=== PATIENT | female | born 1980 | race Caucasian/White ===

== ENCOUNTER 2021-02-22 15:24 | Inpatient (IN) ==
[2021-02-22] MEDS ORDERED: dexAMETHasone 6 MG in SYRINGE 0 ML IV ONE (16:15)
[2021-02-22] MEDS ORDERED: DEXAMETHASONE SOD INJ 4 MG/ML VIAL ONE (16:23)
[2021-02-22 16:40] LABS: Basophils # (auto) 0.03 K/uL (0-0.2); Basophils % (auto) 0.4 %; Eosinophils # (auto) 0.01 K/uL (0-0.5); Eosinophils % (auto) 0.1 %; Hemoglobin 13.7 g/dL (12.0-16.0); Immature Granulocytes # (auto) 0.03 K/uL (0.00-0.02); Immature Granulocytes % (auto) 0.4 %; Lymphocytes # (auto) 1.29 K/uL (1.2-3.4); Lymphocytes % (auto) 15.5 %; Mean Corpuscular Hemoglobin 30.2 pg (25-34); Mean Corpuscular Hgb Conc 35.1 g/dL (32-36); Mean Corpuscular Volume 85.9 fL (80-100); Mean Platelet Volume 9.5 fL (7.4-10.4); Monocytes # (auto) 0.65 K/uL (0.11-0.59); Monocytes % (auto) 7.8 %; Neutrophils # (auto) 6.29 K/uL (1.4-6.5); Neutrophils % (auto) 75.8 %; Platelet Count 278 K/uL (130-400); RDW Coefficient of Variation 12.9 % (11.5-14.5); RDW Standard Deviation 40.7 fL (36.4-46.3); Red Blood Count 4.54 M/uL (4.2-5.4)
[2021-02-22 16:55] LABS: Partial Thromboplastin Time 26.4 Seconds (21.0-31.0); Prothrombin Time 9.8 Seconds (9.0-12.0)
[2021-02-22 17:00] LABS: Alanine Aminotransferase 44 U/L (12-78); Albumin Level 2.9 gm/dl (3.4-5.0); Aspartate Aminotransferase 44 U/L (15-37); BUN Creatinine Ratio 16.5 (10-20); Blood Urea Nitrogen 12 mg/dl (7-18); Carbon Dioxide 24 mmol/L (21-32); Chloride 103 mmol/L (98-107); Creatinine Clr Calc Pharmacy 133.2 ml/min; Est GFR (African American) 115.6 ml/min; Est GFR (Non-African American) 99.7 ml/min; Glucose 100 mg/dl (70-99); Magnesium 2.2 mg/dl (1.8-2.4); Potassium 3.4 mmol/L (3.5-5.1); Sodium 135 mmol/L (136-145)
--- NOTE | 2021-02-22 17:06 | Emergency Department Note ---
History of Present Illness General Chief Complaint: Shortness of Breath/Dyspnea Stated Complaint: SOB Time Seen by Provider: 02/22/21 16:04 History of Present Illness Provider Complaint: shortness of breath Onset (ago): day(s) (10) Severity: severe Consistency/Duration: + progressively worsening Relieved By: + nothing Exacerbated By: + exertion and + coughing Context: + recent illness (Diagnosed with COVID-19 on February 16, 2021) Associated symptoms: + fever, + cough and + chest congestion; no chest pain, no polyuria or no hemoptysis Treatment prior to arrival: none HPI Narrative: Patient states that she has been measuring her home oxygen saturations with a pulse oximeter and it has been going down to 80% today. Related Data Home oxygen amount: none Home Medications Medication Instructions Recorded Confirmed Type albuterol sulfate 90 mcg/actuation 2 puff INHALATION UD PRN 02/18/21 02/22/21 History aerosol inhaler bupropion HCl 300 mg 24 hr tablet, 300 mg PO DAILY 02/18/21 02/22/21 History extended release doxycycline hyclate 100 mg capsule 100 mg PO BID 02/18/21 02/22/21 History ferrous sulfate 325 mg (65 mg 325 mg PO DAILY 02/18/21 02/22/21 History iron) tablet (FeroSul) folic acid 1 mg tablet 1 mg PO DAILY 02/18/21 02/22/21 History lisdexamfetamine 10 mg capsule 10 mg PO DAILY 02/18/21 02/22/21 History (Vyvanse) lisdexamfetamine 20 mg capsule 20 mg PO DAILY 02/18/21 02/22/21 History (Vyvanse) lisdexamfetamine 30 mg capsule 30 mg PO DAILY 02/18/21 02/22/21 History (Vyvanse) metronidazole 0.75 % lotion 1 applic TOPICAL UD 02/18/21 02/22/21 History spironolactone 100 mg tablet 100 mg PO DAILY 02/18/21 02/22/21 History Allergies Allergy/AdvReac Type Severity Reaction Status Date / Time gluten Allergy Unknown RASH Verified 02/22/21 16:38 Past Med/Surg History Medical History COVID-19 No pertinent family history RUQ abdominal pain Surgical History No pertinent past surgical history Social History Smoking Status: Never smoker Feels Safe at Home: Yes Review of Systems A total of 10 systems reviewed and were otherwise negative Physical Exam Vital Signs: Vital Signs - 24 hr 02/22/21 16:01 02/22/21 16:06 02/22/21 16:09 Temperature 36.7 C Temperature Source Oral Pulse Rate 76 72 67 Pulse Rate from Sp O2 Sensor 70 Respiratory Rate 30 H 31 H 26 H Respiratory Effort / Characteristics Labored Labored Respiratory Depth Shallow Respiratory Patter n Tachypnea Blood Pressure 113/66 113/66 Blood Pressure Anahi n 81 81 Blood Pressure Pos ition Lying Pulse Oximetry 84 L 97 97 Oxygen Delivery Me thod Room Air Nasal Cannula Nasal Cannula Oxygen Flow Rate 2 2 2 Sepsis Recent Feve r Within 48 Hours No Sepsis New/Unexpla ined Change in Men jair Status N/A Sepsis Action Take n by Nursing No Action Required 02/22/21 16:30 02/22/21 17:00 02/22/21 17:30 Temperature Temperature Source Pulse Rate 65 71 73 Pulse Rate from Sp O2 Sensor 66 74 Respiratory Rate 24 24 26 H Respiratory Effort / Characteristics Respiratory Depth Respiratory Patter n Blood Pressure 135/80 100/70 Blood Pressure Anahi n 98 80 Blood Pressure Pos ition Pulse Oximetry 98 98 Oxygen Delivery Me thod Nasal Cannula Nasal Cannula Oxygen Flow Rate 2 2 Sepsis Recent Feve r Within 48 Hours Sepsis New/Unexpla ined Change in Men jair Status Sepsis Action Take n by Nursing 02/22/21 18:00 02/22/21 18:30 Temperature Temperature Source Pulse Rate 64 84 Pulse Rate from Sp O2 Sensor 64 84 Respiratory Rate 29 H 24 Respiratory Effort / Characteristics Respiratory Depth Respiratory Patter n Blood Pressure 133/75 Blood Pressure Anahi n 94 Blood Pressure Pos ition Pulse Oximetry 98 96 Oxygen Delivery Me thod Nasal Cannula Nasal Cannula Oxygen Flow Rate 2 2 Sepsis Recent Feve r Within 48 Hours Sepsis New/Unexpla ined Change in Men jair Status Sepsis Action Take n by Nursing Physical Exam: Physical Exam GENERAL: She is oriented to person, place, and time. She appears well-developed and well-nourished. She does not appear distressed. HENT: Exam performed. -Head: Normocephalic and atraumatic. -Right Ear: External ear normal. No mastoid tenderness. -Left Ear: External ear normal. No mastoid tenderness. -Mouth/Throat: The oropharynx is clear and moist. No trismus in the jaw. No dental abscesses or uvula swelling. No oropharyngeal exudate or tonsillar abs cesses. EYES: Conjunctivae and EOM are normal. Pupils are equal, round, and reactive to light. Right eye exhibits no discharge. Left eye exhibits no discharge. No scleral icterus. NECK: Normal range of motion. Neck supple. No JVD present. No spinous process tenderness present. No carotid bruit present. No rigidity. No tracheal deviation and normal range of motion present. No Brudzinski's sign and no Kernig's sign noted. CV: Normal rate, regular rhythm, normal heart sounds and intact distal pulses. There is no peripheral edema. Palpable radial pulses bue. PULM/CHEST: Rhonchi bilaterally. -Chest Wall: She exhibits no tenderness. ABD: The abdomen is soft. Bowel sounds are normal. She has no distension. No mass is present. There is no tenderness. There is no rebound, no guarding, no Oliver's sign and no tenderness at McBurney's point. Rovsig negative MUSC/SKEL: Normal range of motion. There is no peripheral edema, tenderness or deformity. LYMPH: No cervical adenopathy. NEURO: She is alert and oriented to person, place, and time. She has normal strength. No cranial nerve deficit or sensory deficit. Coordination and gait normal. GCS eye subscore is 4. GCS verbal subscore is 5. GCS motor subscore is 6. Cerebellar tests wnl. SKIN: Skin is warm and dry. She is not diaphoretic. PSYCH: She has a normal mood and affect. Behavior is normal. Judgment and thought content normal. Course Course 1604: The patient was evaluated in room A11. A complete history and physical exam was performed Cardiac monitoring: An order was placed for continuous cardiac monitoring. The monitor shows a rate of 80 with sinus rhythm On arrival to the emergency department patient's oxygen saturation is 80 to 85% on room air. Patient was started on supplemental oxygen via nasal cannula which improved her oxygen saturation. EMR reviewed. This is the patient's third visit to the emergency department in the last 6 days. Patient was diagnosed with COVID-19 on February 16, 2021. Patient given Decadron 6 mg IV push. 1907: Vital signs stable on supplemental oxygen via nasal cannula. Labs within normal limits. CTA shows no central PE bilateral groundglass opacities. Patient will be admitted to the emergency department for Covid pneumonia. [facility] hospitalist team Dr. Beltran notified. Administered Medications Discontinued Medications Dexamethasone (Dexamethasone Sod Inj 4 Mg/Ml Vial) Confirm Administered Dose 8 mg .ROUTE .STK-MED ONE Stop: 02/22/21 16:24 Last Admin: 02/22/21 16:27 Dose: Not Given Documented by: [id number] Dexamethasone 6 mg/ Syringe 1.5 mls @ 1 mls/min IV ONE ONE Stop: 02/22/21 16:16 Last Admin: 02/22/21 16:27 Dose: 1 mls/min Documented by: [id number] Ioversol (Optiray 320 125ml) 120 ml IV ONCE ONE Stop: 02/22/21 18:26 Last Admin: 02/22/21 18:27 Dose: 120 ml Documented by: [id number] Medical Decision Making Laboratory Data Result diagrams: 02/22/21 16:29 02/22/21 16:29 Lab Results 02/22/21 02/22/21 02/22/21 Range/Units 16:29 16:29 16:29 WBC 8.30 (4.8-10.8) K/uL RBC 4.54 (4.2-5.4) M/uL Hgb 13.7 (12.0-16.0) g/dL Hct 39.0 (37-47) % MCV 85.9 (80-100) fL MCH 30.2 (25-34) pg MCHC 35.1 (32-36) g/dL RDW Std Deviation 40.7 (36.4-46.3) fL RDW Coeff of Tasha 12.9 (11.5-14.5) % Plt Count 278 (130-400) K/uL MPV 9.5 (7.4-10.4) fL Immature Gran % (Auto) 0.4 % Neut % (Auto) 75.8 % Lymph % (Auto) 15.5 % [place] % (Auto) 7.8 % Eos % (Auto) 0.1 % Baso % (Auto) 0.4 % Neut # (Auto) 6.29 (1.4-6.5) K/uL Lymph # (Auto) 1.29 (1.2-3.4) K/uL [place] # (Auto) 0.65 H (0.11-0.59) K/uL Eos # (Auto) 0.01 (0-0.5) K/uL Baso # (Auto) 0.03 (0-0.2) K/uL Immature Gran # (Auto) 0.03 H (0.00-0.02) K/uL PT 9.8 (9.0-12.0) Seconds INR 1.0 (0.9-1.1) APTT 26.4 (21.0-31.0) Seconds PTT Ratio 1.0 VBG pH (7.36-7.41) VBG pCO2 (38-50) mmHg VBG pO2 mmHg VBG HCO3 mmol/L VBG O2 Saturation % VBG Base Excess mEq/L Barometric Pressure mm/Hg Sodium 135 L (136-145) mmol/L Potassium 3.4 L (3.5-5.1) mmol/L Chloride 103 (98-107) mmol/L Carbon Dioxide 24 (21-32) mmol/L Anion Gap 8.0 (3-11) BUN 12 (7-18) mg/dl Creatinine 0.75 (0.6-1.2) mg/dl Est Cr Clr Drug Dosing 133.2 ml/min Est GFR ( Amer) 115.6 ml/min Est GFR (Non-Af Amer) 99.7 ml/min BUN/Creatinine Ratio 16.5 (10-20) Glucose 100 H (70-99) mg/dl Lactate (0.4-2.0) mmol/L Calcium 9.0 (8.5-10.1) mg/dl Magnesium 2.2 (1.8-2.4) mg/dl Total Bilirubin 0.7 (0.2-1) mg/dl AST 44 H (15-37) U/L ALT 44 (12-78) U/L Alkaline Phosphatase 107 (45-117) U/L Troponin I < 0.015 (0-0.045) ng/ml Total Protein 7.6 (6.4-8.2) gm/dl Albumin 2.9 L (3.4-5.0) gm/dl Globulin 4.7 H (2.5-4.0) gm/dl Albumin/Globulin Ratio 0.6 L (0.9-2) Procalcitonin (0-0.5) ng/ml 02/22/21 02/22/21 02/22/21 Range/Units 16:29 16:55 16:55 WBC (4.8-10.8) K/uL RBC (4.2-5.4) M/uL Hgb (12.0-16.0) g/dL Hct (37-47) % MCV (80-100) fL MCH (25-34) pg MCHC (32-36) g/dL RDW Std Deviation (36.4-46.3) fL RDW Coeff of Tasha (11.5-14.5) % Plt Count (130-400) K/uL MPV (7.4-10.4) fL Immature Gran % (Auto) % Neut % (Auto) % Lymph % (Auto) % [place] % (Auto) % Eos % (Auto) % Baso % (Auto) % Neut # (Auto) (1.4-6.5) K/uL Lymph # (Auto) (1.2-3.4) K/uL [place] # (Auto) (0.11-0.59) K/uL Eos # (Auto) (0-0.5) K/uL Baso # (Auto) (0-0.2) K/uL Immature Gran # (Auto) (0.00-0.02) K/uL PT (9.0-12.0) Seconds INR (0.9-1.1) APTT (21.0-31.0) Seconds PTT Ratio VBG pH 7.43 H (7.36-7.41) VBG pCO2 39 (38-50) mmHg VBG pO2 34 mmHg VBG HCO3 25 mmol/L VBG O2 Saturation < 60.0 % VBG Base Excess 1.1 mEq/L Barometric Pressure 729.5 mm/Hg Sodium (136-145) mmol/L Potassium (3.5-5.1) mmol/L Chloride (98-107) mmol/L Carbon Dioxide (21-32) mmol/L Anion Gap (3-11) BUN (7-18) mg/dl Creatinine (0.6-1.2) mg/dl Est Cr Clr Drug Dosing ml/min Est GFR ( Amer) ml/min Est GFR (Non-Af Amer) ml/min BUN/Creatinine Ratio (10-20) Glucose (70-99) mg/dl Lactate 1.8 (0.4-2.0) mmol/L Calcium (8.5-10.1) mg/dl Magnesium (1.8-2.4) mg/dl Total Bilirubin (0.2-1) mg/dl AST (15-37) U/L ALT (12-78) U/L Alkaline Phosphatase (45-117) U/L Troponin I (0-0.045) ng/ml Total Protein (6.4-8.2) gm/dl Albumin (3.4-5.0) gm/dl Globulin (2.5-4.0) gm/dl Albumin/Globulin Ratio (0.9-2) Procalcitonin 0.07 (0-0.5) ng/ml Imaging Data Radiologist's Impression: Chest CTA 02/22/21 16:06 CHEST CTA for PULMONARY ARTERIES CT DOSE: 717.81 mGy.cm HISTORY: Shortness of breath. TECHNIQUE: Multiaxial CT images of the chest were performed following the intravenous administration of contrast to evaluate the pulmonary arteries. Maximal intensity projection images were also obtained. A dose lowering technique was utilized adhering to the principles of ALARA. COMPARISON STUDY: None. FINDINGS: There is respiratory motion artifact. Limited views of the upper abdomen demonstrate normal liver and spleen. Trace bilateral pleural effusions. No pericardial effusion. The heart is normal in size. Normal esophagus. Borderline enlarged bilateral hilar lymph nodes. These are likely reactive. No mediastinal lymphadenopathy. No fractures within the visualized osseous structures. Normal caliber thoracic aorta with no evidence for dissection. Nondiagnostic evaluation involving the majority of the segmental and subsegmental pulmonary arteries due to the respiratory motion. The remaining central pulmonary arteries show no evidence for pulmonary embolus. No pneumothorax. The central airways appear patent. Extensive patchy airspace opacities seen throughout the lungs consistent with the patient's known history of a viral pneumonia. IMPRESSION: 1. No evidence for central pulmonary embolus. The distal pulmonary arteries are essentially nondiagnostic due to the respiratory motion artifact. 2. Multifocal patchy bilateral airspace opacities consistent with a viral pneumonia. 3. Trace bilateral pleural effusions. ACT 112: Negative or not required by law. Electronically signed by: Paras Doshi M.D. 02/22/2021 6:46 PM Chest X-Ray 02/22/21 16:06 SINGLE VIEW CHEST CLINICAL HISTORY: Sepsis. FINDINGS: An AP, portable, upright chest radiograph is compared to study dated 02/18/2021. The cardiomediastinal silhouette is unremarkable. Multifocal airspace consolidation is again seen throughout both lungs. This has modestly worsened as compared to 02/18/2021. No large pleural effusion or pneumothorax is seen. The bony thorax is grossly intact. IMPRESSION: Multifocal airspace consolidation is consistent with the reported history of a viral pneumonia. This has modestly worsened as compared to 02/18/2021. Radiographic follow-up to resolution is recommended. ACT 112: Negative or not required by law. Electronically signed by: Wilian Dnag M.D. 02/22/2021 5:18 PM ECG Data Interpretation: Sinus rhythm with rate of 69. UT QRS and QTc intervals within normal limits. No escalation ST depression. [facility] Narrative 1604: The patient was evaluated in room A11. A complete history and physical exam was performed Cardiac monitoring: An order was placed for continuous cardiac monitoring. The monitor shows a rate of 80 with sinus rhythm On arrival to the emergency department patient's oxygen saturation is 80 to 85% on room air. Patient was started on supplemental oxygen via nasal cannula which improved her oxygen saturation. EMR reviewed. This is the patient's third visit to the emergency department in the last 6 days. Patient was diagnosed with COVID-19 on February 16, 2021. Patient given Decadron 6 mg IV push. 1907: Vital signs stable on supplemental oxygen via nasal cannula. Labs within normal limits. CTA shows no central PE bilateral groundglass opacities. Patient will be admitted to the emergency department for Covid pneumonia. [facility] hospitalist team Dr. Beltran notified. Impression & Plan Hypoxia, 2019 novel coronavirus-infected pneumonia (NCIP) Critical Care Time Critical Care Time: Yes Total Critical Care Time: 40 I have personally spent greater than 40 minutes of critical care time in the direct management of this patient. This includes bedside care, interpretation of diagnostic studies, and testing, discussion with consultants, patient, and family members, and other required patient management activities. This 40 minutes is in excess of all separately billable procedures. Discharge Plan Visit Data Chief Complaint: Shortness of Breath/Dyspnea Stated Complaint: SOB Discharge Problem: Hypoxia, 2019 novel coronavirus-infected pneumonia (NCIP) Patient Disposition: Admitted As Inpatient Forms Stand Alone Forms: My [facility] Prescriptions Prescriptions: No Action ferrous sulfate [FeroSul] 325 mg (65 mg iron) tablet 325 mg PO DAILY RF: 0 Vyvanse 30 mg capsule 30 mg PO DAILY RF: 0 Vyvanse 20 mg capsule 20 mg PO DAILY RF: 0 Vyvanse 10 mg capsule 10 mg PO DAILY RF: 0 doxycycline hyclate 100 mg capsule 100 mg PO BID RF: 0 spironolactone 100 mg tablet 100 mg PO DAILY RF: 0 metronidazole 0.75 % lotion 1 applic TOPICAL UD RF: 0 folic acid 1 mg tablet 1 mg PO DAILY RF: 0 albuterol sulfate 90 mcg/actuation HFA aerosol inhaler 2 puff INHALATION UD PRN (Reason: as directed) RF: 0 bupropion HCl 300 mg tablet extended release 24 hr 300 mg PO DAILY RF: 0 Referrals Referrals: Leann Ferrer [Primary Care Provider] -
[2021-02-22 17:08] LABS: Albumin Globulin Ratio 0.6 (0.9-2); Alkaline Phosphatase 107 U/L (45-117); Bilirubin,Total 0.7 mg/dl (0.2-1); Globulin 4.7 gm/dl (2.5-4.0); Total Protein 7.6 gm/dl (6.4-8.2); Troponin I < 0.015 ng/ml (0-0.045)
[2021-02-22 17:14] LABS: Base Excess VBG 1.1 mEq/L; HCO3 VBG 25 mmol/L; PCO2 VBG 39 mmHg (38-50); PO2 VBG 34 mmHg; pH VBG 7.43 (7.36-7.41)
[2021-02-22 17:17] LABS: Oxygen Saturation VBG < 60.0 %
--- NOTE | 2021-02-22 17:20 | XRay Report ---
SINGLE VIEW CHEST CLINICAL HISTORY: Sepsis. FINDINGS: An AP, portable, upright chest radiograph is compared to study dated 02/18/2021. The cardio mediastinal silhouette is unremarkable. Multifocal airspace consolidation is again seen throughout alma th lungs. This has modestly worsened as compared to 02/18/2021. No large pleural effusion or pneumoth orax is seen. The bony thorax is grossly intact. IMPRESSION: Multifocal airspace consolidation is consistent with the reported history of a viral pneu monia. This has modestly worsened as compared to 02/18/2021. Radiographic follow-up to resolution is recommended. ACT 112: Negative or not required by law. Electronically signed by: Wilian Dang M.D. 02/22/2021 5:18 PM
[2021-02-22] MEDS ORDERED: OPTIRAY 320 125ml IV ONE (18:25)
--- NOTE | 2021-02-22 18:48 | CT Scan Report ---
CHEST CTA for PULMONARY ARTERIES CT DOSE: 717.81 mGy.cm HISTORY: Shortness of breath. TECHNIQUE: Multiaxial CT images of the chest were performed following the intravenous administration of contrast to evaluate the pulmonary arteries. Maximal intensity projection images were also obtaine d. A dose lowering technique was utilized adhering to the principles of ALARA. COMPARISON STUDY: None. FINDINGS: There is respiratory motion artifact. Limited views of the upper abdomen demonstrate normal liver and spleen. Trace bilateral pleural effusions. No pericardial effusion. The heart is normal in size. Normal esophagus. Borderline enlarged bilateral hilar lymph nodes. These are likely reactive. No mediastinal lymphadenopathy. No fractures within the visualized osseous structures. Normal caliber thoracic aorta with no evidence for dissection. Nondiagnostic evaluation involving the majority of t he segmental and subsegmental pulmonary arteries due to the respiratory motion. The remaining central pulmonary arteries show no evidence for pulmonary embolus. No pneumothorax. The central airways appe ar patent. Extensive patchy airspace opacities seen throughout the lungs consistent with the patient' s known history of a viral pneumonia. IMPRESSION: 1. No evidence for central pulmonary embolus. The distal pulmonary arteries are essentially nondiagno stic due to the respiratory motion artifact. 2. Multifocal patchy bilateral airspace opacities consistent with a viral pneumonia. 3. Trace bilateral pleural effusions. ACT 112: Negative or not required by law. Electronically signed by: Paras Doshi M.D. 02/22/2021 6:46 PM
[2021-02-22] MEDS ORDERED: REMDESIVIR 200 MG in SODIUM CHLORIDE 0.9% 210 ML IV STA (20:11)
[2021-02-22] MEDS ORDERED: POTASSIUM CHLORIDE CRTAB 20 MEQ TABCR PO STA (21:01)
[2021-02-22] MEDS ORDERED: ACETAMINOPHEN 325 MG TAB PO PRN (22:16)
[2021-02-22] MEDS ORDERED: NITROGLYCERIN SL 0.4 MG/TAB TAB SL PRN (22:16)
[2021-02-22] MEDS ORDERED: guaiFENesin/CODEINE 100MG/10MG 5ML UDC PO PRN (22:16)
[2021-02-22] MEDS ORDERED: SODIUM CHLORIDE 0.9% 1000ML 1,000 ML IV SCH (22:16)
[2021-02-22] MEDS ORDERED: ALBUTEROL HFA 8 GM INHALER INH PRN (22:16)
[2021-02-22] MEDS ORDERED: LEVALBUTEROL HCL 1.25 MG/3 ML NEB NEB PRN (22:16)
--- NOTE | 2021-02-22 22:52 | History and Physical Report ---
DATE OF ADMISSION: 02/22/2021. CHIEF COMPLAINT: Shortness of breath, COVID pneumonia. HISTORY OF PRESENT ILLNESS: This is a 40-year-old female with past medical history significant for celiac sprue, iron deficiency anemia, compulsive skin picking, depression, obesity, attention deficit disorder without hyperactivity,. Presents with shortness of breath, cough. The patient states she is having symptoms since 02/12/2021. She was diagnosed with COVID and outpatient treated with a 5-day course of prednisone, but her symptoms are not getting better. She has some cough, on and off headaches, on and off fevers, body aches, weakness, poor appetite. No loss of sense of smell or taste. No abdominal pain, but she has lot of diarrhea. Not feeling well. She came to the ER today and she was saturating 84% on room air, with 2 liters she is saturating 95%. Currently resting comfortably, hemodynamically stable. Denies any blurred visions. Has some runny nose. Denies any sore throat, no difficulty swallowing. No chest pain. No rash. Normal bladder movements. ALLERGIES: GLUTEN. PAST MEDICAL HISTORY: As mentioned above. PAST SURGICAL HISTORY: , dental surgery, EGD with biopsy, exploratory laparotomy, LASIK surgery, myomectomy, partial removal of the leg bones, tonsillectomy and adenoidectomy. MEDICATIONS: The patient is on albuterol 2 puffs inhalation p.r.n., bupropion 300 mg p.o. daily, doxycycline 100 mg p.o. b.i.d., ferrous sulfate 325 mg p.o. daily, folic acid 1 mg p.o. daily, Vyvanse 30 mg p.o. daily, spironolactone 100 mg p.o. daily. FAMILY HISTORY: Significant for mother had adenocarcinoma, myasthenia gravis; father had diabetes; maternal grandfather has heart disorder; maternal grandmother has heart disorder; paternal grandmother had heart disorder. SOCIAL HISTORY: , lives with her kids. No smoking, no alcohol, no drug use. REVIEW OF SYSTEMS: As per HPI. Rest of the review of systems is negative. PHYSICAL EXAMINATION: GENERAL: The patient is morbidly obese, not in acute distress. VITAL SIGNS: Temperature 36.7, pulse 63, respiratory rate 24, blood pressure 108/68, oxygen 95% on 2 liters. HEENT: Pupils equal, round and reactive to light. Oral mucosa moist. NECK: No JVD, no neck masses. CARDIOVASCULAR: S1 and S2 heard. Regular rate and rhythm. No murmur, no gallop. RESPIRATORY SYSTEM: Normal AP diameter. No accessory muscle use. No wheezing, no crackles. ABDOMEN: Soft, bowel sounds present, nontender, no distention. CENTRAL NERVOUS SYSTEM: Cranial nerves II-XII grossly intact, nonfocal. EXTREMITIES: No edema, no erythema. LABORATORY DATA: WBC 8.3, hemoglobin 13.7, hematocrit 39, platelets 278. PT 9.8, INR 1, APTT 26.4. Venous blood gas, pH 7.43. Sodium 135, potassium 3.4, chloride 103, bicarbonate 24, BUN 12, creatinine 0.75, serum glucose 100. Lactate 1.8, calcium 9, magnesium 2.2, total bilirubin 0.7, AST 45, ALT 44, alkaline phosphatase 107. Troponin I less than 0.015. Procalcitonin 0.07. IMAGING DATA: Chest x-ray, multifocal airspace consolidation consistent with reported history of viral pneumonia, modestly worsened as compared to 02/18/2021. CT of the chest, no evidence of PE. Multifocal patchy bilateral airspace opacity consistent with viral pneumonia. EKG: Normal sinus rhythm at a rate of 69, no significant change was found. ASSESSMENT AND PLAN: This is a 40-year-old female who presents with COVID pneumonia. 1. COVID pneumonia: almost around 10 days. Treated outpatient with 5 days of prednisone, not getting better. Chest x-ray showed somewhat progressive pneumonia requiring 2 L oxygen. Will continue with IV Decadron. Starting on remdesivir, questionable benefit. Will continue for now. Follow the remdesivir labs. Will place on inhalers and nebs p.r.n. Closely monitor in [place]. 2. History of depression: Continue bupropion b.i.d. 3. Attention deficit disorder: On Vyvanse. 4. Iron deficiency anemia, celiac sprue: Gluten-free diet and iron supplements. 5. Deep venous thrombosis prophylaxis: Lovenox. DISPOSITION: Admit to [facility]. PT/OT prior to discharge. Social service to help with discharge planning. Job ID: [id number] [facility]
[2021-02-23] MEDS: SODIUM CHLORIDE 0.9% 10ML FLUSH IV SCH ×2 (00:05→21:44)
[2021-02-23] MEDS: ENOXAPARIN INJ 40 MG/0.4 ML SYR SQ SCH ×3 (00:05→20:05)
[2021-02-23] MEDS: BENZONATATE 100 MG CAPSULE PO SCH ×4 (00:05→20:06)
[2021-02-23 06:33] LABS: Basophils # (auto) 0.01 K/uL (0-0.2); Basophils % (auto) 0.2 %; Hematocrit (blood only) 39.5 % (37-47); Hemoglobin 13.3 g/dL (12.0-16.0); Immature Granulocytes # (auto) 0.06 K/uL (0.00-0.02); Immature Granulocytes % (auto) 1.2 %; Lymphocytes # (auto) 1.03 K/uL (1.2-3.4); Lymphocytes % (auto) 20.9 %; Mean Corpuscular Hemoglobin 28.9 pg (25-34); Mean Corpuscular Hgb Conc 33.7 g/dL (32-36); Mean Corpuscular Volume 85.9 fL (80-100); Mean Platelet Volume 9.8 fL (7.4-10.4); Monocytes # (auto) 0.55 K/uL (0.11-0.59); Monocytes % (auto) 11.2 %; Neutrophils # (auto) 3.27 K/uL (1.4-6.5); Neutrophils % (auto) 66.5 %; Platelet Count 276 K/uL (130-400); RDW Coefficient of Variation 12.9 % (11.5-14.5); RDW Standard Deviation 40.6 fL (36.4-46.3); White Blood Count 4.92 K/uL (4.8-10.8)
[2021-02-23 07:07] LABS: Albumin Level 2.7 gm/dl (3.4-5.0); BUN Creatinine Ratio 20.7 (10-20); Bilirubin Direct 0.2 mg/dl (0-0.2); Bilirubin,Total 0.5 mg/dl (0.2-1); C Reactive Protein 9.56 mg/dl (0-0.29); Calcium 8.7 mg/dl (8.5-10.1); Creatinine Clr Calc Pharmacy 158.6 ml/min; Est GFR (Non-African American) 112.2 ml/min; Magnesium 2.8 mg/dl (1.8-2.4); Potassium 3.9 mmol/L (3.5-5.1)
[2021-02-23 07:08] LABS: Total Protein 7.3 gm/dl (6.4-8.2)
[2021-02-23] MEDS: dexAMETHasone 6 MG in SYRINGE 0 ML IV SCH (08:08)
[2021-02-23] MEDS: buPROPion XL 300 MG TABCR PO SCH (08:10)
[2021-02-23] MEDS: FERROUS SULFATE 325 MG TAB PO SCH (08:11)
[2021-02-23] MEDS: FOLIC ACID 1 MG TAB PO SCH (08:12)
[2021-02-23] MEDS: FLUTICASONE FUROATE 100MCG 14 PUFFS/INHALER INH SCH (08:12)
[2021-02-23] MEDS: SPIRONOLACTONE 100 MG TAB PO SCH (08:12)
[2021-02-23 10:21] LABS: Appearance Urine Cloudy (Clear); Bacteria Urine Automated 2+ (Negative); Bilirubin Urine 1+ (Negative); Blood Urine 2+ (Negative); Color Urine Dark Yellow; Epithelial Cell Urine Auto >30 /lpf (0-5); Glucose Urine UA Negative (Negative); Ketones Urine 1+ (Negative); Leukocyte Esterase Urine Negative (Negative); Nitrite Urine Negative (Negative); Protein Urine 2+ (Negative); Specific Gravity Urine 1.037 (1.000-1.030); Urobilinogen Urine Negative (Negative)
--- NOTE | 2021-02-23 14:07 | Electrocardiogram Report ---
Test Reason : Blood Pressure : / mmHG Vent. Rate : 052 BPM Atrial Rate : 052 BPM P-R Int : 164 ms QRS Dur : 096 ms QT Int : 462 ms P-R-T Axes : 040 026 029 degrees QTc Int : 429 ms Sinus bradycardia Otherwise normal ECG When compared with ECG of 22-FEB-2021 16:25, (unconfirmed) No significant change was found Confirmed by Abdoulaye Granger ([id number]) on 02/23/2021 2:07:09 PM Referred By: REFERRED SELF Confirmed By:Juan Granger
--- NOTE | 2021-02-23 14:16 | Electrocardiogram Report ---
Test Reason : Blood Pressure : / mmHG Vent. Rate : 069 BPM Atrial Rate : 069 BPM P-R Int : 142 ms QRS Dur : 084 ms QT Int : 394 ms P-R-T Axes : 041 027 033 degrees QTc Int : 422 ms Normal sinus rhythm When compared with ECG of 14-MAY-2015 16:49, No significant change was found Confirmed by Abdoulaye Granger ([id number]) on 02/23/2021 2:16:12 PM Referred By: REFERRED SELF Confirmed By:Juan Granger
[2021-02-23] MEDS: REMDESIVIR 100 MG in SODIUM CHLORIDE 0.9% 230 ML IV SCH (19:58)
--- NOTE | 2021-02-23 20:36 | Hospitalist Progress Note ---
Date of Service February 23, 2021 Assessment & Plan (1) Pneumonia: (2) 2019 novel coronavirus-infected pneumonia (NCIP): (3) Hypoxia: Plan: 40-year-old female with past medical history significant for celiac sprue, iron deficiency anemia, compulsive skin picking, depression, obesity, attention deficit disorder without hyperactivity presented 02/22 w/ shortness of breath, cough. 1. COVID pneumonia: Per patient, signs and symptoms since 02/12/2021, diagnosed with Covid and treated with 5-day course of prednisone as an outpatient but did not get better. Presented with worsening shortness of breath and cough with on and off headaches and on and off fever with poor appetite. Patient reports improvement in her cough and diarrhea, as well as an appetite. Admitting CXR positive for progressive pneumonia, currently on 2 L oxygen Continue with Decadron 02/05 and remdesivir 02/22 Continue with spirometry/flutter valve/proning as able/nebulizations. Lasix as needed to keep the patient on the air drier side Strict I's and O's. Continue to monitor in telemetry 2. History of depression: Continue bupropion b.i.d. 3. Attention deficit disorder: On Vyvanse. 4. Iron deficiency anemia, celiac sprue: Gluten-free diet and iron supplements. 5. Deep venous thrombosis prophylaxis: Lovenox. DISPOSITION:The patient continues to report improvement and is stable, likely discharge in 1 to 2 days. Admission and Anticipated Discharge Date Admission Date: February 22, 2021 Subjective Patient is lying in bed, on 2 L nasal cannula oxygen, NAD, no new acute events overnight per RN. Patient reports improving diarrhea and cough. Patient denies any headache/dizziness/chest pain/palpitations/increased shortness of breath/other review of symptoms. Patient reports eating okay. Physical Exam Physical Exam: GENERAL: Alert and oriented x3. NAD, on 2L HEENT: No pallor, no icterus. Pupils equal, round and reactive to light. Oral mucosa moist. NECK: No JVD, no neck masses. HEART: S1 and S2 heard. Regular rate and rhythm. No murmur, no gallop. RESPIRATORY SYSTEM: Normal AP diameter. No accessory muscle use. No wheezing, no crackles. Decreased breath sounds. ABDOMEN: Soft, bowel sounds present, nontender, no distention. CENTRAL NERVOUS SYSTEM: No facial droop. Speech is clear. Obeys simple commands. Moves extremities. EXTREMITIES: No edema, no erythema seen. Results & Data Results & Data ([facility]) Vital Signs (Past 12 Hours) Vital Signs Temp Pulse Resp BP Pulse Ox 02/23/21 19:23 37 C 70 20 105/71 96 02/23/21 15:05 36.8 C 62 17 105/70 95 02/23/21 12:05 36.6 C 61 18 114/75 95 (1) Pneumonia Laterality: bilateral Lung location: unspecified part of lung Pneumonia type: due to unspecified organism Qualified Code(s): J18.9 - Pneumonia, unsp ecified organism
[2021-02-24 07:04] LABS: BUN Creatinine Ratio 23.5 (10-20); Calcium 8.8 mg/dl (8.5-10.1); Creatinine Clr Calc Pharmacy 146.9 ml/min; Est GFR (African American) 126.8 ml/min; Est GFR (Non-African American) 109.4 ml/min; Potassium 3.8 mmol/L (3.5-5.1)
[2021-02-24] MEDS: dexAMETHasone 6 MG in SYRINGE 0 ML IV SCH (08:30)
[2021-02-24] MEDS: buPROPion XL 300 MG TABCR PO SCH (08:30)
[2021-02-24] MEDS: ENOXAPARIN INJ 40 MG/0.4 ML SYR SQ SCH ×2 (08:30→20:39)
[2021-02-24] MEDS: BENZONATATE 100 MG CAPSULE PO SCH ×3 (08:30→20:38)
[2021-02-24] MEDS: FOLIC ACID 1 MG TAB PO SCH (08:31)
[2021-02-24] MEDS: FERROUS SULFATE 325 MG TAB PO SCH (08:31)
[2021-02-24] MEDS: FLUTICASONE FUROATE 100MCG 14 PUFFS/INHALER INH SCH (08:31)
[2021-02-24] MEDS: SPIRONOLACTONE 100 MG TAB PO SCH (08:31)
--- NOTE | 2021-02-24 18:34 | Hospitalist Progress Note ---
Date of Service February 24, 2021 Assessment & Plan (1) Pneumonia: (2) 2019 novel coronavirus-infected pneumonia (NCIP): (3) Hypoxia: Plan: 40-year-old female with past medical history significant for celiac sprue, iron deficiency anemia, compulsive skin picking, depression, obesity, attention deficit disorder without hyperactivity presented 02/22 w/ shortness of breath, cough. 1. COVID pneumonia: Per patient, signs and symptoms since 02/12/2021, diagnosed with Covid and treated with 5-day course of prednisone as an outpatient but did not get better. Presented with worsening shortness of breath and cough with on and off headaches and on and off fever with poor appetite. Patient reports improvement in her cough and diarrhea, as well as an appetite. Admitting CXR positive for progressive pneumonia, currently not requiring oxy gen, patient reports feeling weak. Continue with Decadron 02/05 and remdesivir 02/22 Continue with spirometry/flutter valve/proning as able/nebulizations. Lasix as needed to keep the patient on the raw stock drier tender side Strict I's and O's. Continue to monitor in telemetry 2. History of depression: Continue bupropion b.i.d. 3. Attention deficit disorder: On Vyvanse. 4. Iron deficiency anemia, celiac sprue: Gluten-free diet and iron supplements. 5. Deep venous thrombosis prophylaxis: Lovenox. DISPOSITION:Patient reports feeling weak today and not able to go home because of no one to take care of her at home if needed. Likely discharge to home tomorrow. Admission and Anticipated Discharge Date Admission Date: February 22, 2021 Subjective Patient was sitting up in chair, on room air, NAD, no new acute events overnight per RN. Patient reports continued improvement in diarrhea and cough. Patient reports feeling weak and not able to go home today due to nobody at home to take care for if needed. Patient denies any headache/dizziness/chest pain/palpitations/increased shortness of breath/other review of symptoms. Patient reports eating okay. Physical Exam Physical Exam: GENERAL: Alert and oriented x3. NAD, on RA HEENT: No pallor, no icterus. Pupils equal, round and reactive to light. Oral mucosa moist. NECK: No JVD, no neck masses. HEART: S1 and S2 heard. Regular rate and rhythm. No murmur, no gallop. RESPIRATORY SYSTEM: Normal AP diameter. No accessory muscle use. No wheezing, no crackles. ABDOMEN: Soft, bowel sounds present, nontender, no distention. CENTRAL NERVOUS SYSTEM: No facial droop. Speech is clear. Obeys simple commands. Moves extremities. EXTREMITIES: No edema, no erythema seen. Results & Data Results & Data ([facility]) Vital Signs (Past 12 Hours) Vital Signs Temp Pulse Resp BP Pulse Ox 02/24/21 15:35 36.8 C 81 20 101/66 96 02/24/21 12:29 36.5 C 62 18 119/77 95 02/24/21 07:59 36.7 C 54 L 20 92/60 L 96 (1) Pneumonia Laterality: bilateral Lung location: unspecified part of lung Pneumonia type: due to unspecified organism Qualified Code(s): J18.9 - Pneumonia, unspecified organism
[2021-02-24] MEDS ORDERED: FLUCONAZOLE 50 MG TAB PO ONE (18:35)
[2021-02-24] MEDS: REMDESIVIR 100 MG in SODIUM CHLORIDE 0.9% 230 ML IV SCH (20:39)
[2021-02-24] MEDS: SODIUM CHLORIDE 0.9% 10ML FLUSH IV SCH (20:39)
[2021-02-25] MEDS: ENOXAPARIN INJ 40 MG/0.4 ML SYR SQ SCH (08:03)
[2021-02-25] MEDS: buPROPion XL 300 MG TABCR PO SCH (08:03)
[2021-02-25] MEDS: FERROUS SULFATE 325 MG TAB PO SCH (08:04)
[2021-02-25] MEDS: FLUTICASONE FUROATE 100MCG 14 PUFFS/INHALER INH SCH (08:04)
[2021-02-25] MEDS: FOLIC ACID 1 MG TAB PO SCH (08:04)
[2021-02-25] MEDS: SPIRONOLACTONE 100 MG TAB PO SCH (08:04)
[2021-02-25] MEDS: dexAMETHasone 6 MG in SYRINGE 0 ML IV SCH (08:10)
[2021-02-25] MEDS: BENZONATATE 100 MG CAPSULE PO SCH (08:33)
[2021-02-25 09:12] LABS: Creatinine Clr Calc Pharmacy 172.4 ml/min; Est GFR (African American) 133.6 ml/min; Est GFR (Non-African American) 115.3 ml/min
--- NOTE | 2021-02-25 13:12 | Discharge Summary ---
Date of Service February 25, 2021 Admission HPI Per Admitting Provider DATE OF ADMISSION: 02/22/2021. CHIEF COMPLAINT: Shortness of breath, COVID pneumonia. HISTORY OF PRESENT ILLNESS: This is a 40-year-old female with past medical history significant for celiac sprue, iron deficiency anemia, compulsive skin picking, depression, obesity, attention deficit disorder without hyperactivity,. Presents with shortness of breath, cough. The patient states she is having symptoms since 02/12/2021. She was diagnosed with COVID and outpatient treated with a 5-day course of prednisone, but her symptoms are not getting better. She has some cough, on and off headaches, on and off fevers, body aches, weakness, poor appetite. No loss of sense of smell or taste. No abdominal pain, but she has lot of diarrhea. Not feeling well. She came to the ER today and she was saturating 84% on room air, with 2 liters she is saturating 95%. Currently resting comfortably, hemodynamically stable. Denies any blurred visions. Has some runny nose. Denies any sore throat, no difficulty swallowing. No chest pain. No rash. Normal bladder movements. ALLERGIES: GLUTEN. PAST MEDICAL HISTORY: As mentioned above. PAST SURGICAL HISTORY: , dental surgery, EGD with biopsy, exploratory laparotomy, LASIK surgery, myomectomy, partial removal of the leg bones, tonsillectomy and adenoidectomy. MEDICATIONS: The patient is on albuterol 2 puffs inhalation p.r.n., bupropion 300 mg p.o. daily, doxycycline 100 mg p.o. b.i.d., ferrous sulfate 325 mg p.o. daily, folic acid 1 mg p.o. daily, Vyvanse 30 mg p.o. daily, spironolactone 100 mg p.o. daily. FAMILY HISTORY: Significant for mother had adenocarcinoma, myasthenia gravis; father had diabetes; maternal grandfather has heart disorder; maternal grandmother has heart disorder; paternal grandmother had heart disorder. SOCIAL HISTORY: , lives with her kids. No smoking, no alcohol, no drug use. REVIEW OF SYSTEMS: As per HPI. Rest of the review of systems is negative. Admission Exam Per Admitting Provider GENERAL: The patient is morbidly obese, not in acute distress. VITAL SIGNS: Temperature 36.7, pulse 63, respiratory rate 24, blood pressure 108/68, oxygen 95% on 2 liters. HEENT: Pupils equal, round and reactive to light. Oral mucosa moist. NECK: No JVD, no neck masses. CARDIOVASCULAR: S1 and S2 heard. Regular rate and rhythm. No murmur, no gallop. RESPIRATORY SYSTEM: Normal AP diameter. No accessory muscle use. No wheezing, no crackles. ABDOMEN: Soft, bowel sounds present, nontender, no distention. CENTRAL NERVOUS SYSTEM: Cranial nerves II-XII grossly intact, nonfocal. EXTREMITIES: No edema, no erythema. Principal Diagnosis COVID-19 Hypoxia Discharge Exam GENERAL: Alert and oriented x3. NAD, on RA HEENT: No pallor, no icterus. Pupils equal, round and reactive to light. Oral mucosa moist. NECK: No JVD, no neck masses. HEART: S1 and S2 heard. Regular rate and rhythm. No murmur, no gallop. RESPIRATORY SYSTEM: Normal AP diameter. No accessory muscle use. No wheezing, no crackles. ABDOMEN: Soft, bowel sounds present, nontender, no distention. CENTRAL NERVOUS SYSTEM: No facial droop. Speech is clear. Obeys simple commands. Moves extremities. EXTREMITIES: No edema, no erythema seen. 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 She was managed for the following while in hospital. 1. COVID pneumonia: Per patient, signs and symptoms since 02/12/2021, diagnosed with Covid and treated with 5-day course of prednisone as an outpatient but did not get better. Presented with worsening shortness of breath and cough with on and off headaches and on and off fever with poor appetite. Per patient, cough has improved, patient is eating well and bowel movement has been back to normal Patient received Decadron and remdesivir while in hospital, patient maintained room air since last 1 and half days, 2 step done revealed no home oxygen requirement.---> Discontinuing Decadron and remdesivir Patient to follow-up with primary care physician within a week time. Continue with spirometry/flutter valve/proning as able/nebulizations as needed for 5 more days as discussed at the bedside. 2. History of depression: Continue bupropion b.i.d. 3. Attention deficit disorder: On Vyvanse. 4. Iron deficiency anemia, celiac sprue: Gluten-free diet and iron supp lements. 5. Deep venous thrombosis prophylaxis: Lovenox. While inpatient Patient is being discharged home with following instruction at the point of discharge: Follow-up with your primary care physician within a week time. Take medications as prescribed. Continue with incentive spirometer and flutter valve for 5 days upon discharge. Maintain self-isolation for 5 days upon discharge. Total Time Total Time Spent Total Time Spent (In Minutes): 35 Discharge Plan Discharge Items Patient Disposition: Home - Self-Care Reason For Visit: SOB Discharge Diagnosis: COVID-19 Hypoxia Activity: Resume your previous activity Non-emergency contact: Primary Care Provider Call non-emergency contact if: you have any medication questions, your symptoms worsen and your temperature is above 101 Follow-up/Referrals: Wiliam Encinas MD [Primary Care Provider] - (Date & Time 03/01/2021 11:00 AM Provider Steffi Zamudio MD Department General Internal Medicine [facility] PLEASE NOTE THAT THIS IS A TELEHEALTH VIDEO APPOINTMENT. PLEASE FOLLOW THE INSTRUCTIONS PROVIDED IN YOUR EMAIL. IF YOU HAVE ANY QUESTIONS REGARDING THIS APPOINTMENT, PLEASE CALL ) Diet: Heart Healthy Addtl Attending Provider Instructions: Follow-up with your primary care physician within a week time. Take medications as prescribed. Continue with incentive spirometer and flutter valve for 5 days upon discharge. Maintain self-isolation for 5 days upon discharge. Home Isolation COVID-19 Instructions The following information about Home Isolation is from the CDC Website: https://www.cdc.gov/coronavirus/2019-ncov/hcp/wxdcrykq-quukhkm-awioww.html Stay home except to get medical care People who are mildly ill with COVID-19 are able to isolate at home during their illness. You should restrict activities outside your home, except for getting medical care. Do not go to work, school, or public areas. Avoid using public transportation, ride-sharing, or taxis. Separate yourself from other people and animals in your home People: As much as possible, you should stay in a specific room and away from other people in your home. Also, you should use a separate bathroom, if available. Animals: You should restrict contact with pets and other animals while you are sick with COVID-19, just like you would around other people. Although there have not been reports of pets or other animals becoming sick with COVID-19, it is still recommended that people sick with COVID-19 limit contact with animals until more information is known about the virus. When possible, have another member of your household care for your animals while you are sick. If you are sick with COVID-19, avoid contact with your pet, including petting, snuggling, being kissed or licked, and sharing food. If you must care for your pet or be around animals while you are sick, wash your hands before and after you interact with pets and wear a face mask. Call ahead before visiting your doctor If you have a medical appointment, call the healthcare provider and tell them that you have or may have COVID-19. This will help the healthcare providers of [facility] take steps to keep other people from getting infected or exposed. Wear a face mask You should wear a face mask when you are around other people (e.g., sharing a room or vehicle) or pets and before you enter a healthcare providers office. If you are not able to wear a face mask (for example, because it causes trouble breathing), then people who live with you should not stay in the same room with you, or they should wear a face mask if they enter your room. Cover your coughs and sneezes Cover your mouth and nose with a tissue when you cough or sneeze. Throw used tissues in a lined trash can. Immediately wash your hands with soap and water for at least 20 seconds or, if soap and water are not available, clean your hands with an alcohol-based hand cheese blender that contains at least 60% alcohol. Clean your hands often Wash your hands often with soap and water for at least 20 seconds, especially after blowing your nose, coughing, or sneezing; going to the bathroom; and before eating or preparing food. If soap and water are not readily available, use an alcohol-based hand cheese blender with at least 60% alcohol, covering all surfaces of your hands and rubbing them together until they feel dry. Soap and water are the best option if hands are visibly dirty. Avoid touching your eyes, nose, and mouth with unwashed hands. Avoid sharing personal household items You should not share dishes, drinking glasses, cups, eating utensils, towels, or bedding with other people or pets in your home. After using these items, they should be washed thoroughly with soap and water. Clean all high-touch surfaces everyday High touch surfaces include counters, tabletops, doorknobs, bathroom fixtures, toilets, phones, keyboards, tablets, and bedside tables. Also, clean any surfaces that may have blood, stool, or body fluids on them. Use a household cleaning spray or wipe, according to the label instructions. Labels contain instructions for safe and effective use of the cleaning product including precautions you should take when applying the product, such as wearing gloves and making sure you have good ventilation during use of the product. Monitor your symptoms Seek prompt medical attention if your illness is worsening (e.g., difficulty breathing).Beforeseeking care, call your healthcare provider and tell them that you have, or are being evaluated for, COVID-19. Put on a face mask before you enter the facility. These steps will help the healthcare providers office to keep other people in the office or waiting room from getting infected or exposed. Ask your healthcare provider to call the local or [facility] health department. Persons who are placed under active monitoring or facilitated self- monitoring should follow instructions provided by their local health department or occupational health professionals, as appropriate. When working with your local health department check their available hours. If you have a medical emergency and need to call 911, notify the dispatch personnel that you have, or are being evaluated for COVID-19. If possible, put on a face mask before emergency medical services arrive. Discontinuing home isolation Patients with confirmed COVID-19 should remain under home isolation precautions until the risk of secondary transmission to others is thought to be low. The decision to discontinue home isolation precautions should be made on a case-by-c ase basis, in consultation with healthcare providers and state and local health departments. Pending Studies at Discharge: No Stand-Alone Forms: [facility], Smoking Cessation Medications and DC Order Prescriptions: New benzonatate 100 mg capsule 100 mg PO TID 5 Days Qty: 15 RF: 0 Continued ferrous sulfate [FeroSul] 325 mg (65 mg iron) tablet 325 mg PO DAILY RF: 0 Vyvanse 30 mg capsule 30 mg PO DAILY RF: 0 Vyvanse 20 mg capsule 20 mg PO DAILY RF: 0 Vyvanse 10 mg capsule 10 mg PO DAILY RF: 0 spironolactone 100 mg tablet 100 mg PO DAILY RF: 0 metronidazole 0.75 % lotion 1 applic TOPICAL UD RF: 0 folic acid 1 mg tablet 1 mg PO DAILY RF: 0 albuterol sulfate 90 mcg/actuation HFA aerosol inhaler 2 puff INHALATION UD PRN (Reason: as directed) RF: 0 bupropion HCl 300 mg tablet extended release 24 hr 300 mg PO DAILY RF: 0 Discontinued doxycycline hyclate 100 mg capsule 100 mg PO BID RF: 0 Discharge Orders: Discharge Order (Routine); Ordered 02/25/21 Ordered By: Nikolas Faust Admission Data Admit Date/Time: 02/22/21 20:11 Attending Provider: Nikolas Faust Admit Provider: Ryan Stern Primary Care Provider: Wiliam Encinas Other Providers: Ryan Stern
== END 2021-02-25 15:15 | disposition home or self-care (01) | DRG 177 ==
LOC: ED 15:24 → 2S 20:11 → SUATTDRO 20:11 → 2S 21:42

== ENCOUNTER 2023-07-06 08:27 | Observation (INO) ==
--- NOTE | 2023-06-04 08:22 | Anesthesiology Consultation ---
Date of Service June 04, 2023 Assessment & Plan (1) Encounter for pre-operative examination: - Check test AM DOS - Infectious disease screening: Per assessment on 05/29/23: No known infectious disease contacts or current infectious disease symptoms. No noted recent Covid positive test result. Chart Review Chart Review: Acceptable Risk for Surgery and Patient NOT seen in Pre Admission Testing History Surgery Operation Date: 06/08/23 07:00 Proposed Procedures p Robotic assisted Total Laparoscopic Hysterectomy, Bilateral Salpingo- Oophorectomy, Possible Mini-Laparotomy and Cystoscopy - Tamiko Baker MD s Laparoscopic Incisional Hernia Repair - Ash Kendrick MD Height/Weight Height: 5 ft 7.5 in Weight: 68.946 kg Allergies Allergy/AdvReac Type Severity Reaction Status Date / Time adhesive tape Allergy Unknown Rash Verified 05/29/23 12:08 gluten Allergy Unknown RASH Verified 05/29/23 12:08 Medications Home Medications Medication Instructions Recorded Confirmed Last Taken albuterol sulfate 90 mcg/actuation 2 puff inhalation Q4 PRN Wheezing 02/18/21 0 05/29/23 05/30/21 aerosol inhaler ferrous sulfate 325 mg (65 mg 325 mg PO DAILY 02/18/21 05/29/23 Unknown iron) tablet (FeroSul) metronidazole 0.75 % lotion 1 applic topical BID 02/18/21 05/29/23 Unknown calcium carbonate 600 mg-vitamin 1 tab PO DAILY 05/30/21 05/29/23 Unknown D3 10 mcg (400 unit) tablet (Calcium 600 + D(3)) cholecalciferol (vitamin D3) 50 50 mcg PO DAILY 05/30/21 05/29/23 Unknown mcg (2,000 unit) tablet (Vitamin D3) clotrimazole 1 % topical cream 1 applic topical UD PRN facial 05/30/21 05/29/23 Unknown condition nystatin 100,000 unit/gram topical 1 applic topical TID 05/30/21 05/29/23 Unknown powder (Nystop) pimecrolimus 1 % topical cream 1 applic topical BID 05/30/21 05/29/23 Unknown (Elidel) bupropion HCl 100 mg tablet,12 hr 100 mg PO QAM 05/29/23 05/29/23 Unknown sustained-release lorazepam 0.5 mg tablet 0.5 mg PO DAILY PRN Anxiety 05/29/23 05/29/23 Unknown semaglutide (weight loss) 2.4 2.4 mg subcut Q7D 05/29/23 05/29/23 Unknown mg/0.75 mL subcutaneous pen injector ([place]) Past Medical History Medical History Anxiety Celiac disease History of COVID-19 2020-hospitalized at [facility] w/ hypoxemia 10/2022- no hospilzation, symptoms resolved Hx of migraines 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 Past Surgical History Surgical History History of anesthesia reaction Slow to wake Hallucinations with anesthesia emergence History of gastric surgery gastric sleeve History of open reduction and internal fixation (ORIF) procedure Right leg History of removal of retained hardware Right leg History of tonsillectomy and adenoidectomy Hx of section x2 Hx of colonoscopy Hx of endoscopy Hx of LASIK Hx of myomectomy Hx of wisdom tooth extraction Social History Smoking Status: Never smoker Do You Dip or Chew Tobacco: No Hx Alcohol Use: No Hx Substance Use: No substance use type: does not use Testing Laboratory Results 06/01/23 WBC 5.86 H/H 12.8/37.5 PLATELETS 206 IRON 119 IRON BINDING CAPACITY 310 TRANSFERRIN SAT PERCENT 38 FERRITIN 34 TSH 1.60
--- NOTE | 2023-07-06 07:02 | History & Physical Report ---
Date of Service July 06, 2023 Assessment & Plan (1) Incisional hernia: Plan: 42-year-old woman with lower midline incisional hernia from prior incision. She is undergoing a robotic hysterectomy with Dr. Baker. I discussed the risk benefits of a laparoscopic incisional hernia repair, possible open with her. All questions were answered, she is agreeable to proceed. We will schedule the case with Dr. Baker at the earliest convenience. Consent has been obtained. History of Present Illness Primary Care Provider: Steffi Zamudio MD 42-year-old woman with with lower midline hernia. She has had multiple C- sections and a uterine myomectomy. She is lost a lot of weight and now has a "lopsided abdomen ". She is undergoing a robotic hysterectomy and would like to have the hernia repaired at the same time Allergies Allergy/AdvReac Type Severity Reaction Status Date / Time adhesive tape Allergy Unknown Rash Verified 05/29/23 12:08 gluten Allergy Unknown RASH Verified 05/29/23 12:08 Home Medications Medication Instructions Recorded Confirmed Type albuterol sulfate 90 mcg/actuation 2 puff inhalation Q4 PRN Wheezing 02/18/21 05/29/23 History aerosol inhaler ferrous sulfate 325 mg (65 mg 325 mg PO DAILY 02/18/21 05/29/23 History iron) tablet (FeroSul) metronidazole 0.75 % lotion 1 applic topical BID 02/18/21 05/29/23 History calcium carbonate 600 mg-vitamin 1 tab PO DAILY 05/30/21 05/29/23 History D3 10 mcg (400 unit) tablet (Calcium 600 + D(3)) cholecalciferol (vitamin D3) 50 50 mcg PO DAILY 05/30/21 05/29/23 History mcg (2,000 unit) tablet (Vitamin D3) clotrimazole 1 % topical cream 1 applic topical UD PRN facial 05/30/21 05/29/23 History condition nystatin 100,000 unit/gram topical 1 applic topical TID 05/30/21 05/29/23 H istory powder (Nystop) pimecrolimus 1 % topical cream 1 applic topical BID 05/30/21 05/29/23 History (Elidel) bupropion HCl 100 mg tablet,12 hr 100 mg PO QAM 05/29/23 05/29/23 History sustained-release lorazepam 0.5 mg tablet 0.5 mg PO DAILY PRN Anxiety 05/29/23 05/29/23 History semaglutide (weight loss) 2.4 2.4 mg subcut Q7D 05/29/23 05/29/23 History mg/0.75 mL subcutaneous pen injector (Wegovy) Past Med/Surg History Medical History 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 Anxiety History of COVID-19 2020-hospitalized at [facility] w/ hypoxemia 10/2022- no hospilzation, symptoms resolved Celiac disease Hx of migraines Childhood Surgical History History of gastric surgery gastric sleeve History of anesthesia reaction Slow to wake Hallucinations with anesthesia emergence Hx of endoscopy Hx of colonoscopy Hx of section x2 Hx of myomectomy History of removal of retained hardware Right leg History of open reduction and internal fixation (ORIF) procedure Right leg Hx of LASIK Hx of wisdom tooth extraction History of tonsillectomy and adenoidectomy Social History Smoking Status: Never smoker Second Hand Exposure: No; Do You Dip or Chew Tobacco: No; Tobacco Cessation Education Requested by Patient: No Hx Alcohol Use: No Hx Substance Use: No Preferred Language: Japanese Communication Ability: Effective Fund Director Required: No Beliefs That Will Affect Care: None Current Living Situation: Family Other Information That Helps Us Care for You: No Feels Safe at Home: Yes Safety Concerns: Feels Safe At This Time Assistive Devices: None Review of Systems Review of Systems: All systems reviewed & are unremarkable except as noted in HPI & below Physical Exam Constitutional: WD/WN, vitals as above Eyes: PERRL, conjunctivae normal, anicteric sclerae ENMT: external ear and nose normal, oropharynx normal Neck: trachea midline, no thyromegaly Respiratory: normal respiratory effort, lungs clear to auscultation Cardiovascular: RRR, no murmur, no edema Gastrointestinal (Abdomen): Inspection/Auscultation: abdomen normal to inspection; abdomen not distended Percussion/Palpation: abdomen soft and + hernia ( lower midline, reducible); abdomen nontender, no guarding and abdomen not rigid Skin: no rashes, warm and dry Psychiatric: A+Ox3, euthymic affect
[~2023-07-06 08:27] MED LIST: SODIUM CHLORIDE 0.9% 1,000 ML IV SCH
[2023-07-06] MEDS ORDERED: SCOPOLAMINE 1 MG/72 HR TDSY PATCH TD ONE (09:02)
[2023-07-06] MEDS ORDERED: DexMEDEtomidine HCL IV 100 MCG/ML VIAL IV ONE (09:13)
[2023-07-06] MEDS ORDERED: MIDAZOLAM HCL 1 MG/ML 2ML VIAL ONE (09:13)
[2023-07-06] MEDS ORDERED: PROPOFOL IV EMULSION 10 MG/ML 20 ML VIAL IV ONE (09:13)
[2023-07-06] MEDS ORDERED: fentaNYL citrate PF 100 MCG/2 ML VIAL ONE ×2 (09:13→11:37)
[2023-07-06] MEDS ORDERED: ROCURONIUM BROMIDE 10 MG/ML 5 ML VIAL IV ONE ×2 (09:13→11:40)
[2023-07-06] MEDS ORDERED: LIDOCAINE 2% 2 ML VIAL/AMP(20MG/ML) INFIL ONE (09:13)
[2023-07-06] MEDS ORDERED: ONDANSETRON INJ 2 MG/ML 2 ML VIAL ONE (09:14)
[2023-07-06] MEDS ORDERED: DEXAMETHASONE SOD INJ 4 MG/ML VIAL ONE ×2 (09:14→09:23)
[2023-07-06] MEDS: LACTATED RINGER'S 1,000 ML IV SCH ×2 (09:22→20:22)
[2023-07-06] MEDS: SCOPOLAMINE 1 MG/72 HR TDSY PATCH TD ONE (09:22)
[2023-07-06] MEDS ORDERED: ATROPINE SULFATE 0.1 MG/ML 10ML SYR IV PRN (09:24)
[2023-07-06] MEDS ORDERED: DROPERIDOL 5 MG/2 ML VIAL IV PRN (09:24)
[2023-07-06] MEDS ORDERED: ePHEDrine sulfate 50 MG/ML AMP IV PRN (09:24)
--- NOTE | 2023-07-06 09:33 | History & Physical Report ---
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 Colonoscopy every 1-3 years beginning at age 30-35 (or 2-5 yrs prior to the earliest colon cancer in family) 2. Consider upper GI endoscopy (with visualization of the duodenum) beginning at age 30-40. a. Include random biopsy for H. Pylori testing on baseline EGD. b. Repeat every 2-4 years. 3. If family history of pancreatic cancer, consider MRI/MRCP and /or EUS at age 50 (or 10 years prior to the earliest pancreatic cancer in family). TUBULAR RIVETER Cancers: 1. Consider endometrial biopsy at 30-35 and repeat every 1-2 years. 2. Consider hysterectomy after family planning is complete. 3. Consider bilateral salpingo-oophorectomy or transvaginal ultrasound and serum CA-125. 4. Consider hormonal contraceptives. Urothelial Cancers: Consider annual urinalysis beginning at age 30-35. Skin Cancer: Consider full-body skin exam with high school guidance counselor every 1-2 years. Brain Cancer: Annual physical and neurological exam. Prostate Cancer: Consider annual PSA with ROSAURA beginning at 40; base individual risks on gene and family history of prostate cancer. (2) Fibroids: Plan: 42 yo with an enlarged fibroid uterus and right ovarian cyst. Recent genetic studies are positive for jackson syndrome. Intramural leiomyoma of uterus: Patient is now willing to have surgery in [place]. Normal CA 125. Normal endometrial biopsy. Plan PLAN: Robotic assisted total laparoscopic hysterectomy, bilateral salpingectomy, pelvic washings, possible mini-laparotomy, and cystoscopy The R/B of surgery were discussed w/ the pt to include, but not limited to bleeding/transfusion, infection, wound breakdown/poor healing, damage to organs in abd/pelvis w/ possible need for further surgical repair, need for abdominal incision to complete procedure, blood clot, PE/CT/stroke. Additionally, risks/benefits of ovarian preservation were discussed to include 1/70 lifetime risk of ovarian cancer and 5-10% risk for need of future surgery for ovarian pathology. Patient desires to keep her ovaries. Pt understands these risks and consents to surgery. History of Present Illness Chief Complaint: Uterine fibroids Primary Care Provider: Steffi Zamudio MD 42 year old [id number] contraception presents with uterine fibroids. At an annual exam with PCP an enlarged uterus was noted. Subsequent imaging confirmed fibroids. Patient was originally seen in Apr 2018 and treated with depo lupron. Patient used depo lupron for approximately 1 year and then discontinued. Patient seen in Apr 2020. Patient was asymptomatic and plan was to repeat imaging to re-evaluate uterus and previously reported bilateral ovarian cysts. TVUS in Aug 2020 revealed 1. Uterine myoma appears stable 2. Probable right endometrioma for which follow-up is recommended in 1 year.3. 3.9 cm simple right ovarian cyst. If asymptomatic, follow-up is not needed. 4. Left ovarian cyst is not demonstrated. Patient desired to follow up in 1 year (Aug 2021). Her lastest TVUS in July 2022 revealed 1. Interval increased in size of uterine fibroid.2. Two adjacent right ovarian hemorrhagic cysts are also increased in size since prior MR. Evaluate on follow-up examination. Since discontinuation of depo lupron, menses last 7-10 days with moderate flow. Patient states menses are tolerable. Denies pelvic pain. Denies abnormal vaginal discharge. Denies urinary or bowel symptoms. Patient had genetic testing in Nov 2022 due to h/o Mother [facility]. Patient is positive for PMS2-related Jackson syndrome. Patient desired surgery at [facility]. Referred to Dr. Joe. Patient states appointment was cancelled and then rescheduled. She desires to now proceed with surgery in the [place] area. Patient will have hernia repaired by General Surgery. Allergies Allergy/AdvReac Type Severity Reaction Status Date / Time adhesive tape Allergy Unknown Rash Verified 07/06/23 08:56 gluten Allergy Unknown RASH Verified 07/06/23 08:56 Home Medications Medication Instructions Recorded Confirmed Type albuterol sulfate 90 mcg/actuation 2 puff inhalation Q4 PRN Wheezing 02/18/21 07/06/23 History aerosol inhaler ferrous sulfate 325 mg (65 mg 325 mg PO DAILY 02/18/21 07/06/23 History iron) tablet (FeroSul) metronidazole 0.75 % lotion 1 applic topical BID 02/18/21 07/06/23 History calcium carbonate 600 mg-vitamin 1 tab PO DAILY 05/30/21 07/06/23 History D3 10 mcg (400 unit) tablet (Calcium 600 + D(3)) cholecalciferol (vitamin D3) 50 50 mcg PO DAILY 05/30/21 07/06/23 History mcg (2,000 unit) tablet (Vitamin D3) clotrimazole 1 % topical cream 1 applic topical UD PRN facial 05/30/21 07/06/23 History condition nystatin 100,000 unit/gram topical 1 applic topical TID 05/30/21 07/06/23 History powder (Nystop) pimecrolimus 1 % topical cream 1 applic topical BID 05/30/21 07/06/23 History (Elidel) bupropion HCl 100 mg tablet,12 hr 100 mg PO QAM 05/29/23 07/06/23 History sustained-release lorazepam 0.5 mg tablet 0.5 mg PO DAILY PRN Anxiety 05/29/23 07/06/23 History semaglutide (weight loss) 2.4 2.4 mg subcut Q7D 05/29/23 07/06/23 History mg/0.75 mL subcutaneous pen injector (Wegovy) Past Med/Surg History Medical History (Updated 07/06/23 @ 09:39 by Tamiko Baker MD) 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 Anxiety History of COVID-19 2020-hospitalized at [facility] w/ hypoxemia 10/2022- no hospilzation, symptoms resolved Celiac disease Hx of migraines Childhood Surgical History History of gastric surgery gastric sleeve History of anesthesia reaction Slow to wake Hallucinations with anesthesia emergence Hx of endoscopy Hx of colonoscopy Hx of section x2 Hx of myomectomy History of removal of retained hardware Right leg History of open reduction and internal fixation (ORIF) procedure Right leg Hx of LASIK Hx of wisdom tooth extraction History of tonsillectomy and adenoidectomy Social History Smoking Status: Never smoker Second Hand Exposure: No; Do You Dip or Chew Tobacco: No; Tobacco Cessation Education Requested by Patient: No Hx Alcohol Use: No Hx Substance Use: No Preferred Language: Faroese Communication Ability: Effective Educational Technologist Required: No Beliefs That Will Affect Care: None Current Living Situation: Family Other Information That Helps Us Care for You: No Feels Safe at Home: Yes Safety Concerns: Feels Safe At This Time Assistive Devices: None Review of Systems Constitutional: (-) fever chills sweats or weight loss Cardiovascular: (-) negative: no chest pain, dyspnea, syncope, or palpitations Pulmonary: (-) negative: no cough, wheezing, or shortness of breath Abdominal/GI: (-) negative: no pain, heartburn, dysphagia, bleeding, change in bowel habits, nausea or vomiting Female : (-) negative: no dysuria, pelvic pain, irregular menses, or vaginal discharge Results & Data Vital Signs (Past 12 Hours) Vital Signs Temp Pulse Resp BP Pulse Ox O2 Del Method 07/06/23 08:54 36.8 C 77 20 107/75 99 Room Air Diagnostic Findings EXAM: US PELVIS TRANS-VAGINAL NON-OB - 08/10/2022 HISTORY: Uterine fibroids TECHNIQUE: Transvaginal and transabdominal pelvic ultrasound was performed COMPARISON: MR 12/16/2021, ultrasound 11/11/2021 FINDINGS: LMP: 07/15/2022 UTERUS: 16.8 cmx7.4 cmx13.2 cm, enlarged and bulbous appearance. MYOMETRIUM: Heterogeneous. Left lateral fibroid currently measures 9.4 x 7.9 x 11.1 cm, previously 7.4 x 7.1 x 7.4 cm. ENDOMETRIUM: 9.0 mm in thickness, within normal limits. RIGHT OVARY: 7.4 cmx4.4 cmx6.8 cm, 116.3 ml There are two adjacent cysts with internal echoes measuring 5.2 x 4.1 x 3.6 cm and 4.0 x 3.1 x 3.6 cm likely representing hemorrhagic cysts. Mural thickening may represent mural thrombus. When compared to MR, the cysts are increased in size. LEFT OVARY: 3.3 cmx1.8 cm x 2.8 cm, 8.7 ml Unremarkable MISCELLANEOUS: No significant free fluid. IMPRESSION IMPRESSION: 1. Interval increased in size of uterine fibroid. 2. Two adjacent right ovarian hemorrhagic cysts are also increased in size since prior MR. Evaluate on follow-up examination.
[2023-07-06] MEDS: LR 15ML/HR IV SCH (09:40)
[2023-07-06] MEDS: ceFAZolin 2000MG 2,000 MG/15 ML SYR IV SCH (10:15)
[2023-07-06] MEDS ORDERED: PHENYLEPHRINE HCL 10 MG/ML VIAL ONE (10:34)
[2023-07-06] MEDS ORDERED: ePHEDrine sulfate 50 MG/5 ML SYR ONE (11:01)
[2023-07-06] MEDS ORDERED: ceFAZolin 330 MG/ML 1 GM VIAL ONE ×2 (13:51→14:41)
[2023-07-06] MEDS: TISSEEL FIBRIN SEALANT 10ML TOP ONE (14:00)
--- NOTE | 2023-07-06 14:11 | Post Operative Brief Note ---
Immediate Post Op Note v1 Date of Surgery July 06, 2023 Pre & Post Diagnosis Operation Date: 07/06/23 10:05 Pre-Op Diagnosis: Uterine Fibroids, Jackson Syndrome, Incisional Hernia Post-Op Diagnosis: Uterine Fibroids, Jackson Syndrome, Incisional Hernia I identified the patient and participated in the time-out.: Yes Procedure Operation Date: 07/06/23 10:05 Actual Procedures p Robotic Assisted Total Laparoscopic Hysterectomy, Bilateral Salpingo- Oophorectomy, Mini-Laparotomy and Cystoscopy, Pelvic Washings(Bilateral) - Tamiko Baker MD s Open Incisional Hernia Repair, Lysis of adhesions(Not Applicable) - Ash Kendrick MD Surgeon Ash Kendrick MD Director Advertising SHANDA Petit assisted with tissue retraction, camera op, closure Estimated Blood Loss 5 Findings Consistent with Post-Op Diagnosis 8 cm x 5 cm lower midline defect Drains Das Catheter and Star-Aguila Drain
[2023-07-06] MEDS: BUPIVACAINE 0.5 % 5 MG/1 ML MPF 30ML VIAL ONE (14:16)
[2023-07-06] MEDS: BUPIVACAINE/EPINEPHRINE 0.25% 1:200,000 30 ML VIAL ONE (14:17)
--- NOTE | 2023-07-06 14:17 | Operative Report ---
Post Operative Report Pre & Post Diagnosis Operation Date: 07/06/23 10:05 Pre-Op Diagnosis: Uterine Fibroids, Jackson Syndrome, Incisional Hernia Post-Op Diagnosis: Uterine Fibroids, Jackson Syndrome, Incisional Hernia I identified the patient and participated in the time-out.: Yes Procedure Operation Date: 07/06/23 10:05 Actual Procedures p Robotic Assisted Total Laparoscopic Hysterectomy, Bilateral Salpingo- Oophorectomy, Mini-Laparotomy and Cystoscopy, Pelvic Washings(Bilateral) - MD alice Samuel Open Incisional Hernia Repair, Lysis of adhesions(Not Applicable) - Ash Kendrick MD Surgeon Ash Kendrick MD Gas Leak Inspector SHANDA Petit assisted with tissue retraction, camera op, closure Estimated Blood Loss 5 Findings Consistent with Post-Op Diagnosis 8 cm x 5 cm lower midline incisional hernia defect; omentum contained within the hernia sac Specimens hernia sac Drains 10 Hebrew flat CHAYA Anesthesia Type General Complications no immediate complications Description of Procedure the patient was taken to the operating room, placed supine on the operating table. Timeout was performed, the patient was placed in lithotomy position, was prepped and draped in normal sterile fashion. Dr. Baker and the LANDSCAPE DRAFTER team started the surgery by placing 5 mm robotic ports. The camera was placed. The abdomen was surveyed. There appeared to be significant adhesions of omentum within the hernia sac. At this point I scrubbed into the case. The adhesions of the omentum into the hernia sac were taken down with the harmonic scalpel and blunt dissection. No bowel was contained within the hernia sac. Once all the adhesions were taken down, the operation was handed over to Dr. Baker for the robotic hysterectomy portion of the surgery. Once the hysterectomy was completed, I scrubbed back into the case. Due to the size of the uterus, a larger incision was needed to remove the uterus. Given this fact, the decision was made to proceed with an open hernia repair. A lower midline incision was made and was carried down to the subcutaneous tissue. The hernia sac was identified and dissected free circumferentially down to the level of the fascia. The hernia sac was opened and excised at the level of the fascia. It was sent off the field for specimen. The fascia was cleaned above and below of excess tissue. Hemostasis was excellent. The defect was sized and measured 8 cm x 5 cm. A 10 cm x 15 cm oval patch, Ventralight ST was brought onto the field and was cut to size. It was sewn into the fascia in a Underlay fashion with 2-0 Prolene suture. The sutures were interrupted. Once this was complete, the fascia was closed over the top of the mesh and a 360 degree fashion with 2-0 Prolene suture. When this was complete, the mesh was com pletely beneath the surface covered by fascia. Due to the size of the cavity remaining, the decision was made to leave a 10 Hebrew drain. This was placed through a separate stab incision and was sewn into place with 3-0 silk suture. Subcutaneous tissue was reapproximated to the fascia with 2-0 Vicryl. The subcutaneous tissue was closed with 3-0 Vicryl. The skin was closed with running 4-0 Monocryl subcuticular stitch. Once this was complete, the operation was rehanded over to Dr. Baker for completion of the LANDSCAPE DRAFTER portion of the case. All instrument, needle, and sponge counts were correct at the end of my portion of the case. my assistant food service director was necessary throughout the procedure for tissue retraction, possible camera operation, and closure of the wounds. I understand that section 1842(b)(7)(D) of the Social Security act generally prohibits Medicare physician fee schedule payment for the services of assistants at surgery in teaching hospitals when qualified residents are available to furnish such services. I certify that the services for which payment is claimed were medically necessary and that no qualified resident was available to perform the services. I further understand that these services are subject to postpayment review by the Medicare carrier. I attest to the content of the Intraoperative Record and any orders documented therein. Any exceptions are noted below.
[2023-07-06] MEDS ORDERED: SUGAMMADEX SODIUM 200 MG/2 ML VIAL IV ONE (14:20)
[2023-07-06] MEDS: VASOPRESSIN 20 UNIT/ML VIAL ONE (14:20)
[2023-07-06] MEDS: BUPIVACAINE LIPOSOME 1.3% 266 MG/20 ML VIAL ONE (14:20)
[2023-07-06] MEDS ORDERED: ONDANSETRON INJ 2 MG/ML 2 ML VIAL IV PRN ×2 (14:36→17:57)
[2023-07-06] MEDS ORDERED: KETOROLAC 30 MG/ML VIAL IV PRN (14:36)
[2023-07-06] MEDS ORDERED: METOCLOPRAMIDE HCL INJ 5 MG/ML 2 ML VIAL IV PRN (14:36)
--- NOTE | 2023-07-06 14:47 | Post Operative Brief Note ---
Immediate Post Op Note v1 Date of Surgery July 06, 2023 Pre & Post Diagnosis Operation Date: 07/06/23 10:05 Pre-Op Diagnosis: Uterine Fibroids, Jackson Syndrome, Incisional Hernia Post-Op Diagnosis: Uterine Fibroids, Jackson Syndrome, Incisional Hernia I identified the patient and participated in the time-out.: Yes Procedure Operation Date: 07/06/23 10:05 Actual Procedures p Robotic Assisted Total Laparoscopic Hysterectomy, Bilateral Salpingo- Oophorectomy, Mini-Laparotomy and Cystoscopy, Pelvic Washings(Bilateral) - Tamiko Baker MD s Open Incisional Hernia Repair, Lysis of adhesions(Not Applicable) - Ash Kendrick MD Surgeon Tamiko Baker MD Coke Oven Mason SHANDA Petit assisted with tissue retraction, camera op, closure Estimated Blood Loss 150 Findings Consistent with Post-Op Diagnosis Drains Das Catheter and Star-Aguila Drain Anesthesia Type General
--- NOTE | 2023-07-06 15:04 | Operative Report ---
Post Operative Report Pre & Post Diagnosis Operation Date: 07/06/23 10:05 Pre-Op Diagnosis: Uterine Fibroids, Jackson Syndrome, Incisional Hernia Post-Op Diagnosis: Uterine Fibroids, Jackson Syndrome, Incisional Hernia I identified the patient and participated in the time-out.: Yes Procedure Operation Date: 07/06/23 10:05 Actual Procedures p Robotic Assisted Total Laparoscopic Hysterectomy, Bilateral Salpingo- Oophorectomy, Mini-Laparotomy and Cystoscopy, Pelvic Washings(Bilateral) - Tamiko Baker MD s Open Incisional Hernia Repair, Lysis of adhesions(Not Applicable) - Ash Kendrick MD Surgeon Tamiko Baker MD Admitting Interviewer SHANDA Petit assisted with tissue retraction, camera op, closure Estimated Blood Loss 150 Findings See Below 1. 13 cm anteverted fibroid uterus 2. Left fallopian tube adhered to the left ovary 3. Left ovary with a simple appearing cyst 4. Normal right fallopian tube 5. Right ovary with an endometrioma 6. Anterior cul-de-sac with thick adhesions from the bladder to the lower uterine segment. The body of the uterus was also adhered to the anterior abdominal wall 7. Posterior cul-de-sac with omentum and rectum attached with endometrial implants 8. Normal appearing liver edge 9. Appendix not visualized 10. Omental adhesions to the ventral hernia sac which was approximately 7 cm 11. On cystoscopy, normal appearing bladder which was free of suture or lesions 12. Brisk bilateral efflux of urine by the urethral orifices visualized. Fluids See Anesthesia Report Specimens Uterus (with fibroid), cervix, bilateral fallopian tubes, hernia sac Drains CHAYA Drain in place Lao catheter removed at the end of the case. Urine: 200 ml Anesthesia Type General Complications none Indications 42 yo with a fibroid uterus, jackson syndrome, and a ventral hernia desiring surgical management. Description of Procedure Under GA in the dorsal lithotomy position, the patient was prepped and draped in the usual sterile fashion. Beginning at the vagina, a lao catheter was inserted under sterile conditions and left in situ for the remainder of the case. A weighted speculum was then placed in the vagina and with the help of a right angle retractor the cervix was visualized and grasped anteriorly with a single tooth tenaculum.The uterus was sounded to13cm with a uterine maryellen nd.The cervical os was dilated up. An Advincula uterine manipulator was inserted. The weighted speculum was then removed. Attention was then turned to the abdomen. 0.5% marcaine solution was used for infiltration of all port sites. Beginning in the supraumbilical area, the skin was first infiltrated with ~ 2 cc of themarcaine solution, then a8mm incision was made through the skin with a #11 blade. Direct entry with the robotic 8 mm trocar, sleeve, and 5 mm laparoscope was made into the peritoneal cavity.The opening pressure was <8 mmHg. The peritoneal cavity was insufflated with CO2 gas to a maximum pressure of 20 mmHg. Examination of the peritoneal cavity revealed no signs of injury from entry and the above notedanatomical structures. The patient was then placed in steep Trendelenburg and two [id number] robotictrocars were placed in a horizontal fashion.The personalized living assistant port was placed in the RUQ with a 5 mm trocar.All trocars placed instandard technique, taking care to avoid the epigastric vessels. All trocars were placed under direct visualization with no inadvertent damage to underlying structures. The uterus was upheld from below and revealed the above noted findings. Pelvic washings was then obtained and sent for cytologic evaluation. Dr. Kendrick then removed the omental adhesions from the hernia sac with the YESSICA Harmonic which allowed for better visualization of the uterus. Hemostasis noted. The [employer] robot was docked. The fibroid uterus was infiltrated with a dilute solution of vasopressin. Beginning on the left side, the fallopian tube was lifted towards the anterior abdominal wall to expose the mesosalpinx. Working from distal to proximal, the mesosalpinx was sequentially, clamped, ligated, and cut using the monopolar pete and bipolar forceps hugging adjacent to tube from distal to proximal in the direction of the cornua. Once the cornua was reached the tube was ligated and cut and left freely hanging from the uterus to be removed as one specimen. Following this, the utero-ovarian ligament was clamped, sealed, and cut. The ovarian pedicle was the inspected to ensure there was no bleeding from the edges of mesosalpinx or from the stump of the utero-ovarian ligament. Attention was then turned to the other side. The same process was repeated on the right, sequentially clamping, ligating, and cutting the mesosalpinx being sure to not injure the adjacent ovarian tissue or other surrounding structures. The round ligament was then ligated and cut. Following this, the anterior leaf of the broad ligament was then taken down on the right side, dissecting down towards the peritoneal reflection at the base of the bladder and adjacent to the cervix. The same process was then repeated on the left side such that both sides met and the anterior leaflet had been appropriately skeletonized. Care was taken on both sides to avoid injuring the ovaries and to ensure the ureters were well visualized bilaterally. Once the bladder was appropriately dissected free from the lower anterior uterine segment and the tissues skeletonized, the uterine arteries were bilaterally clamped and ligated. Pedicles were checked and hemostatic. At the level of the ofthe uterine manipulator, the vaginal vault was incised circumferentially withthemonopolarshears. The robot was undocked. Dr. Kendrick then re-scrubbed for the abdominal ventral hernia repair (see his operative note). Once the fascia was opened the uterine manipulator was removed. The uterus, cervix,and bilateralfallopian tubes weredelivered through the abdomen and sent to pathology. Once the hernia was repaired with mesh and the abdominal incision was closed, avaginal occluderwas then placed into the vagina to form a pneumatic seal. The robot was docked and pneumoperitoneum was re-established. All the pedicles as well as the cuff edges were examined. Hemostasis was appreciated. The vaginal vault was then closed with a V-Loc barbed stitch being sure to avoid the bladder lateral pedicles. Following vault closure, an inspection of all areas was made to ensure hemostasis.Tisseal was placed along the vaginal cuffand adnexal regions. Hemostasiswasagain appreciated. The jimenez ot was undocked.All ports were removed under direct visualization and hemostasis noted. All the incision sites were then closed with 4-0 monocryl sutures in a subcuticular fashion and dermabond. The vaginal occluder and lao catheter were removed without incident. Cystoscopy was then performed. Normal appearing bladder dome which was free of suture or lesions was visualized. There was brisk bilateral efflux of urine by the ureteral orifices visualized. The bladder was drained and the cystoscope was removed without difficulty. At the end of the procedure, all sponges, instruments, and sharps were counted and correct. Estimated blood loss was 150ml. The patient was taken to recovery in stable condition. My Admitting Interviewer was necessary throughout the procedure for uterine manipulation, retraction, handling of the robot and robotic instruments to ensure adequate visualization, gentle tissue manipulation, and hemostasis. I attest to the content of the Intraoperative Record and any orders documented therein. Any exceptions are noted below.
[2023-07-06] MEDS: HYDROmorphone INJ 1 MG/ML SYRINGE IV PRN (15:09)
--- NOTE | 2023-07-06 16:53 | Anesthesiology Progress Note ---
Date of Service July 06, 2023 Anesthesia Post Procedure Vital Signs Vital Signs: Temp Pulse Pulse Resp BP BP Pulse Ox 07/06/23 16:10 86 16 106/68 99 07/06/23 15:40 36.0 C L 74 14 98/70 L 96 07/06/23 15:35 36.2 C L 89 16 104/71 98 07/06/23 15:25 76 16 100/65 96 07/06/23 15:15 79 15 100/63 97 07/06/23 15:05 80 17 98/65 L 97 07/06/23 14:55 87 17 99/60 L 98 07/06/23 14:45 86 16 95/62 L 100 07/06/23 14:36 36.0 C L 82 12 93/61 L 100 07/06/23 08:54 36.8 C 77 20 107/75 99 O2 Del Method O2 Flow Rate 07/06/23 16:10 Room Air 07/06/23 15:40 Room Air 07/06/23 15:35 Room Air 07/06/23 15:25 Room Air 07/06/23 15:15 Room Air 07/06/23 15:05 Room Air 07/06/23 14:55 Room Air 07/06/23 14:45 Oxymask 4 07/06/23 14:36 Oxymask 10 07/06/23 08:54 Room Air Pain Intensity Abdomen: Pain Intensity: 8 Transfer of Care Handoff Completed per policy Notes Mental Status: alert / awake / arousable Patient Amnestic to Procedure: Yes Nausea / Vomiting: adequately controlled Pain: adequately controlled Airway Patency, RR, SpO2: stable & adequate BP & HR: stable & adequate Hydration State: stable & adequate Anesthetic Complications: no major complications apparent
[2023-07-06] MEDS ORDERED: oxyCODONE/ACETAMINOPHEN 5mg/325mg TAB PO PRN (17:57)
[2023-07-06] MEDS: oxyCODONE/ACETAMINOPHEN 5mg/325mg TAB PO PRN ×2 (18:39→23:23)
[2023-07-06] MEDS: ACETAMINOPHEN 325 MG TAB PO PRN (20:22)
--- OUTSIDE RECORDS SUMMARY | 2023-07-06 23:12 | External Medical Summary | Summary of Care ---
Author Name Unknown Organization [facility] Address [address] [place] [address] Phone [phone] Care Team Providers Care Corduroy Brusher Operator Name Role Phone Steffi Zamudio MD Primary Care Provider [phone] Reason for Visit * Reason Comments Nurse Documentation B12 Encounter Details Date Type Department Care Team (Late st Contact Info) Description 07/05/2023 3:15 PM EDT Nurse Only Nutrition & Weight Management, [facility] [place] [address] [facility] [address] Nurse [facility] [address] [address] Nurse Documentation (B12/) Allergies Active Allergy Reactions Criticality Noted Date Comments Adhesive Tape Rash 03/23/2021 Band-aides -rash Gluten Rash 07/12/2012 Celiac disease documented as of this encounter (statuses as of 07/05/2023) Medications Medication Sig Dispensed Refills Start Date End Date Status Hydroquinone 4 % External Cream Apply to brown spots on face 2x per day for 2 months 28.35 g 1 02/01/2021 Active Vitamin D 50 MCG (1999 UT) Oral CapsuleIndications:S tatus following gastric banding surgery for weight loss Take by mouth 2,000 Units in the morning. 0 06/02/2021 Active LORazepam 0.5 MG Oral Tablet (Ativan)Indications: Depression with anxiety Take by mouth 1 Tablet 2 times a day as needed for Anxiety. 20 Tablet 0 06/03/2021 Active Adapalene 0.1 % External Gel (Differin) Apply topically to affected area at bedtime . Apply to face and chest and thighs 90 g 11 10/21/2021 Active metroNIDAZOLE 0.75 % External Lotion APPLY TOPICALLY TO FACE TWICE DAILY 59 mL 5 04/17/2022 Active Dapsone 5 % External GelIndications:Acne vulgaris Apply to acne on face and chest 60 g 2 04/09/2023 Active buPROPion HCl ER (XL) 150 MG Oral Tablet Extended Release 24 Hour (Wellbutrin XL)Indications:Mixed emotional features as adjustment reaction TAKE 1 TABLET BY MOUTH IN THE MORNING 30 Tablet 5 04/14/2023 Active Acetaminophen 325 MG Oral Tablet (Tylenol) Take 2 Tablets by mouth every 6 hours as needed for Pain, Mild. 30 Tablet 1 05/23/2023 Active Semaglutide(0.25 or 0.5MG/DOS) 2 MG/3ML Solution Pen-injector (Ozempic) Inject 0.5 mg under the skin once a week. 3 mL 0 06/07/2023 Active Iron 325 (65 Fe) MG Oral TabletIndications:St atus following gastric banding surgery for weight loss,Iron deficiency anemia secondary to inadequate dietary iron intake Take 1 tablet by mouth once daily 90 Tablet 3 06/12/2023 Active Hospital, Clinic, or Other Facility Administered Medication Ordered Dose Route Frequency Start Date End Date Status vitamin b-12 (Cyanocobalamin) inj 1,000 mcgIndications:Intestinal postoperative nonabsorption 1000 mcg IM [id number] 06/07/2023 08/01/19 25 Active documented as of this encounter (statuses as of 07/05/2023) Active Problems Problem Noted Date Diagnosed Date Class 1 obesity due to excess calories in adult 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 Overview: Genetic Testing Completed 08/30/2022: Test Result: POSITIVE Gene: PMS2 Variant: Deletion (Exons 12-14) ClinVarID: None This result is consistent with Jackson syndrome Test Ordered: Multi-Cancer Panel at [facility] (84 genes) Genes Included: AIP, ALK, APC, PATTY, AXIN2, BAP1, BARD1, BLM, BMPR1A, BRCA1, BRCA2, BRIP1, CASR, CDC73, CDH1, CDK4, CDKN1B, CDKN1C, CDKN2A (p14ARF), CDKN2A (t96APU5s), CEBPA, CHEK2, CTNNA1, DICER1, DIS3L2, EGFR, EPCAM, FH, FLCN, GATA2, GPC3, GREM1, HOXB13, HRAS, KIT, MAX, MEN1, MET, MITF, MLH1, MSH2, MSH3, MSH6, MUTYH, NBN, NF1, NF2, NTHL1, PALB2, PDGFRA, PHOX2B, PMS2, POLD1, POLE, POT1, USCMA9B, PTCH1, PTEN, RAD50, RAD51C, RAD51D, RB1, RECQL4, RET, RUNX1, SDHA, SDHAF2, SDHB, SDHC, SDHD, SMAD4, SMARCA4, SMARCB1, SMARCE1, STK11, SUFU, TERC, TERT, RUEG507, TP53, TSC1, TSC2, VHL, WRN, WT1 Status following gastric banding surgery for cleo ght loss 06/02/2021 Bilateral ovarian cysts 05/13/2021 Major depressive disorder with single episode Food insecurity 11/01/2020 Overview: Per [facility] Protocol Attention deficit disorder (ADD) without hyperac tivity 08/28/2020 Major depressive disorder wi th single episode, in partial remission 04/10/2019 Compulsive skin picking 01/15/2019 Mixed emotional features as adjustment reaction 08/14/2016 Iron deficiency anemia secon doron to inadequate dietary iron intake 07/07/2014 Melasma 10/16/2013 Hypertrophic scar 07/03/2012 Acne vulgaris 07/03/2012 Celiac sprue documented as of this encounter (statuses as of 07/05/2023) Resolved Problems Problem Noted Date Diagnosed Date Resolved Date Body mass index (BMI) of 40. 0 to 44.9 in adult 07/04/2021 10/05/2022 Overview: Per Obesity protocol BMI 33.0-33.9,adult 06/13/2019 10/20/19 Family history of cancer 10/06/2015 macrosomia 06/02/2015 07/01/2015 Overview: 05/25/15: @ 32w3d EFW 2598gm >95%; LAURI normal Advance directive discussed with patient 04/15/2015 12/23/2018 Overview: No, Advance Directive brochure given to patient at prior appointment. IUGR (intrauterine growth re striction) in prior , 03/08/2015 07/01/2015 Overview: Growth sono q 4-6 weeks after 24 weeks Supervision of other high-risk 02/22/2015 02/12/2017 with history of uterine myomectomy 5 08/08/2016 Obesity in , antepartum 02/22/2015 08/08/2016 BMI 31.0-31.9,adult 02/22/2015 12/24/19 19 History of prior with IUGR 5 08/08/2016 History of uterine fibroid 02/22/2015 0 08/08/2016 w/ hx of uterine myomectomy 12/16/2014 07/01/2015 Overview: S/p myomectomy 06/2014. MFM consult Pt planning repeat c/s at [facility] 1. For patients with previous myomectomy involving a large fibroid or entry into the uterine cavity, we recommend management as per prior classical delivery with a repeat at 36-37 weeks (consider waiting until the latter part of that range). PREVIOUS DELIVERY 1. Reviewed that patients with a history of a previous section are at increased risk in subsequent pregnancies for abnormal placentation (such as previa, acreta, increta, percreta), uterine rupture, abdominal adhesions (which increases the associated surgical risks of injury to adjacent organs, length of procedure, and increased blood loss), and other incision-related complications (such as hernia, rectal muscle diastasis). These risks increase linearly with the number of previous sections performed. 2. Routine repeat section is recommended to be scheduled between 39-40 weeks gestation. If patient has a previous classical uterine incision, then recommend proceeding with scheduled repeat delivery at 36-37 weeks without amniocentesis per [employer]. Every effort should be made by patient s primary OB provider to obtain prior operative reports. 3. Based on recent myomectomy recommend repeat delivery with current and subsequent pregnancies. MFM 04/15/15: Recommend follow up ultrasound with MFM in 4-6 weeks for growth secondary to history of IUGR in prior . Recommend delivery at 36 weeks gestation secondary to history of myomectomy. Scheduled for 06/25/15 at [facility] History of prior w ith short cervix, currently 12/16/2014 07/01/2015 Overview: MFM consult 1. Advised that based on today's ultrasound no cervical shortening/funneling was appreciated. Advised that cervical length following transvaginal ultrasound was within normal limits at 4.5cm 2. Recommend follow up ultrasound with MFM in 3-4 weeks to re-asses cervical measurement given her previous history. Supervision of high risk pre gnancy in first trimester 12/16/2014 07/01/2015 Overview: Pt declined exam today. Will farrah pap, gonorrhea and chlamydia with next visit. Pt agreeable. -completed and normal Urine culture contaminated at [facility], repeat next visit 04/26/2015 Tdap Vaccine administered per clinic protocol. Pt given VIS(vaccine information sheet) Ruthann Parr RN Previous section 12/16/2014 Overview: C/s x1, myomectomy x1 Neoplasm of uncertain behavior of skin 10/16/2013 12/23/2018 Agrees to Participate in Research Study 01/03/2013 12/23/2018 Cervical shortening, antepar lisset condition or complication 12/10/2012 03/06/2013 Overview: 0.6cm on 11/08/12 S/p steroids series at 24 wks Poor growth, affecting management of mother, antepartum condition or complication 11/29/2012 03/06/2013 Overview: Explained plan for repeat steroids further on in the when she is at a greater risk for delivery S/p steroid series at 24 weeks because of short cervix Explained that CMV results indicate that she had a previous infection. [facility] EFW = 1487 01/10 (<3%) Reviewed the need for twice weekly testing secondary to IUGR. Short cervix affecting 10/11/2012 11/20/2012 Overview: Vag progesterone QD- tawanna Kennedy md 11/08/12 (23w1d): Given the 6mm cervix we discussed admission with administration of steroids for maturity. We discussed the risks and benefits of expectant management (with vaginal progesterone) versus steroids. Given that she has never had a prior , she is not a candidate for cerclage. They were unsure of what they wanted to do, so I recommended that they go to L&D for rule out labor and for discussion with NICU regarding expectations for a 23-[address] Iyer assessed her cervix and stated that she was closed (please refer to her triage note). She was kept on the monitor and tracing was reassuring without contractions. She has no complaints of contractions either. NICU consulted. They understand that they are at an increased risk of delivery and they understand the risks of delivery of a periviable fetus who has not received steroids. Patient and her prefer not to be admitted at this time and are considering steroids at 23 5/7 weeks which they would like to have administered locally. I alerted her practice so that this could be arranged. Rh negative, antepartum 07/15/201209/2015 Overview: Rhogam candidate Rhogam given 04/26/2015 Ruthann Parr RN ICD-10 update of inactive term Supervision of normal first 07/12/2012 03/06/2013 Overview: Urine cx at [facility] visit contaminated Urine cx 07/24/12- e.coli UTI-Rx for macrobid sent to pharmacy 08/09/12: urine BRET contaminated Patient given flu vaccine. 12/10/2012 Vita Bundy RN 12/17/2012 Tdap Vaccinedeferred Pt given VIS(vaccine information sheet) Trang Leung RN Family history of diabetes mellitus 07/12/2012 03/06/2013 Overview: Early glucola-normal Uterine fibroid in 07/12/2012 03/06/2013 Overview: 07/12/12: left-sided uterine myoma which measures 9.5 x 9.3 x 8.9 cm. MFM 10/11:MFM: Recommend serial growth ultrasounds every 4 weeks in the third trimester since fundal height measurements may not correlate well with size due to presence of uterine fibroids. Melanocytic nevi of trunk 07/03/2012 Melanocytic nevi of upper ex tremity or shoulder 07/03/2012 12/23/2018 Perioral dermatitis 06/19/2012 12/24/19 19 documented as of this encounter (statuses as of 07/05/2023) Immunizations Name Administration Dates Next Due Pneumococcal Polysaccharide PPV23 (Pneumovax) Seasonal Influenza, PF, 6 M & above, IM , (FluLaval or Fluzone) 02/26/2020,01/22/2019 Seasonal Influenza, Split, IIV3, With Preserve, Inj 01/06/2014,12/10/2012 TDAP (age 10 and older)(Boostrix) 04/26/2015, TDAP (age 11 and older)(Adacel) 05/04/2011 documented as of this encounter Social History Tobacco Use Types Packs/Day Years Used Date Smoking Tobacco: Never Passive Smoke Exposure: Never Smokeless Tobacco: Never Alcohol Use Standard Drinks/Week Comments No 0 (1 standard drink = 0.6 oz pur e alcohol) denies during PHQ-2 Answer Date Recorded PHQ Adult Total Score 0 04/26/2023 Hunger Vital Sign Answer Date Recorded Within the past 12 months, y ou worried that your food would run out before you got the money to buy more. Sometimes true Within the past 12 months, t he food you bought just didn't last and you didn't have money to get more. Sometimes true Sex and Gender Information Value Date Recorded Sex Assigned at Female 04/10/2019 4:16 PM EST Gender Identity Female 04/10/2019 4:16 PM EST Sexual Orientation Straight 04/10/2019 4: 16 PM EST Job Start Date Occupation Industry Not on file Not on file Not on file documented as of this encounter Last Filed Vital Signs Vital Sign Reading Time Taken Comments Blood Pressure 104/64 07/05/2023 3:25 PM EDT Pulse 80 07/05/2023 3:25 PM EDT Temperature 36.5 C (97.7 F) 07/05/2023 3:25 PM ED T Respiratory Rate - - Oxygen Saturation 99% 07/05/2023 3:25 PM EDT Inhaled Oxygen Concentration - - Weight 68.9 kg (152 lb) 07/05/2023 3:25 PM EDT Height - - Body Mass Index 23.81 06/01/2023 4:49 PM EST documented in this encounter Functional Status Functional Status Response Date of Assess ment Are you deaf or do you have serious difficulty h earing? No 07/07/2014 Are you blind or do you have serious difficulty seeing, even when wearing glasses? No 07/07/2014 Do you have serious difficul ty walking or climbing stairs? (5 years old or older) No 07/07/2014 Do you have difficulty dress ing or bathing? (5 years old or older) No 07/07/2014 Because of a physical, menta l, or emotional condition, do you have difficulty doing errands alone such as visiting a doctor s office or shopping? (15 years old or older) No 07/08/19 15 Cognitive Status Response Date of Assessm ent Because of a physical, menta l, or emotional condition, do you have serious difficulty concentrating, remembering, or making decisions? (5 years old or older) No 07/07/2014 documented as of this encounter Nursing Notes * Jose Hall LPN - 07/05/2023 3:25 PM EDT Chief Complaint Patient presents with Nurse Documentation B12 documented in this encounter Plan of Treatment Upcoming Encounters Date Type Department Care Team (Late st Contact Info) Description 07/06/2023 7:00 AM EDT Office Visit Non [facility], Operating Room, [facility] [address] [facility] [place] [address] Ash Kendrick MD [address] [place] [address] 07/25/2023 4:30 PM EDT Office Visit Gynecology/Obstetric s [facility] [address] [place] [address] Tamiko Baker MD [address] [place] [address] 08/09/2023 2:00 PM EDT Office Visit Nutrition & Weight Management, [facility] [address] [place] [address] Joan Bright PA-C [address] [place] [address] 10/05/2023 1:30 PM EDT Office Visit Dermatology [facility] [address] [facility] [place] [address] Duane Perez MD [address] [facility] [place] [address] 10/25/2023 2:00 PM EDT Office Visit General Internal Medicine [facility] [place] [address] [facility] [address] [place] [address] Steffi Zamudio MD [address] [facility] [place], [place] [address] 03/07/2024 11:00 AM EST Telemedicine Hematology Oncology [facility] [address] [place] [address] Malignancy, Multidisciplinary Clinic [facility] [address] [place] [address] 05/16/2024 1:30 PM EST Office Visit Dermatology [facility] [place] [address] [facility] [place] [address] Duane Perez MD [address] [facility] [place], [place] [address] Scheduled Procedures Name Priority Associated Diagnoses Date/Ti me COLONOSCOPY FLEXIBLE PROXIMAL DIAGNOSTIC Recall PMS2-related Jackson syndrome (HNPCC4) ESOPHAGOGASTRODUODENOSCOPY ( EGD), FLEXIBLE, TRANSORAL, DIAGNOSTIC Recall PMS2-related Jackson syndrome (HNPCC4) Health Maintenance Due Date Last Done Comments Hepatitis B (1 of 3 - 19+ 3-dose series) 11/28/1999 HPV/Co-Test 2010 COVID-19 Vaccine ( season) 2022 Mammogram 06/16/2023 06/15/2022, 05/25, 06/09/2021, Additional history exists Influenza Vaccine (FLU shot) (Season Ended) 2023 02/26/2020, 01/22/2019, 01/06/2014, Additional history exists Cervical Cancer Screening 05/13/2024 Pap Smear 05/13/2024 05/13/2021, 03/27, 01/13/2015, Additional history exists DTaP,Tdap,and Td Vaccines (4 - Td or Tdap) 04/26/2025 04/26/2015, 01/21/2013, 05/04/2011 Diabetes Screening 06/06/2026 06/07/2023, 0 06/07/2023, 11/04/2022, Additional history exists Lipid Panel 06/06/2028 06/07/2023, 03/04/2022, 11/09/2021, Additional history exists Pneumococcal Vaccine: Pediatrics (0 to 5 Years) and At-Risk Patients (6 to 64 Years) Aged Out 10/19/2015 No longer eligible based on patient's age to complete this topic GARDASIL-HPV IMMUNIZATION SERIES Aged Out No longer eligible based on patient's age to complete this topic MENINGOCOCCAL (MENACTRA/MENVEO) Aged Out No longer eligible based on patient's age to complete this topic documented as of this encounter Medical Devices Not on filedocumented as of this encounter Visit Diagnoses Diagnosis Postsurgical nonabsorption- Primary Other and unspecified postsurgical nonabsorption documented in this encounter Administered Medications Active Administered Medications - up to 3 most recent administrations Medication Order MAR Action Action Date Dose Rate Site vitamin b-12 (Cyanocobalamin) inj 1,000 mcg 1,000 mcg, Intramuscular, [id number], First dose on Stephani 06/07/23 at 1715, Last dose on Stephani 05/08/24 at 1715, For 5 doses Given 07/05/2023 3:27 PM EDT 1,000 mcg Deltoid Left Upper documented in this encounter Advance Directives Latest Code Status on File Code Status Date Activated Date Inactivated Comments Full Code 06/25/2015 7:50 AM 06/27/2015 9:48 PM This or jemima reflects the patients wishes and were consensually agreed upon. Code Status History Code Status Date Activated Date Inactivated Comments Full Code 07/07/2014 2:59 PM 07/10/2014 5:04 PM This order reflects the patients wishes and were consensually agreed upon. Care Teams Corduroy Brusher Operator Relationship Specialty Start Date End Date Steffi Zamudio MD [address] [facility] [place] [address] PCP - General Internal Medicine 05/04/11 documented as of this encounter
--- OUTSIDE RECORDS SUMMARY | 2023-07-06 23:12 | External Medical Summary | Summary of Care ---
Author Name Unknown Organization [facility] Address [address] [address] Phone [phone] Care Team Providers Care Power Wood Sawyer Name Role Phone Steffi Zamudio MD Primary Care Provider [phone] Reason for Visit * Reason Onset Date Comments Advice 06/20/2023 Encounter Details Date Type Department Care Team (Late st Contact Info) Description 06/20/2023 Telephone Gynecology/Obstetrics [facility] [address] [place] [address] Tamiko Baker MD [address] [place] [phone] Advice Allergies Active Allergy Reactions Criticality Noted Date Comments Adhesive Tape Rash 03/23/2021 Band-aides -rash Gluten Rash 07/12/2012 Celiac disease documented as of this encounter (statuses as of 06/20/2023) Medications Medication Sig Dispensed Refills Start Date End Date Status Hydroquinone 4 % External Cream Apply to brown spots on face 2x per day for 2 months 28.35 g 1 02/01/2021 Active Vitamin D 50 MCG (1999) Oral CapsuleIndications:S tatus following gastric banding surgery [...] 1,000 mcgIndications:Intestinal postoperative nonabsorption 1000 mcg IM [id number] 06/07/2023 08/01/19 25 Active documented as of this encounter (statuses as of 06/20/2023) Active Problems Problem Noted Date Diagnosed Date Class 1 obesity due to excess calories in adult 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 Overview: Genetic Testing Completed 08/30/2022: Test Result: POSITIVE Gene: PMS2 Variant: Deletion (Exons 12-14) ClinVarID: None This result is consistent with Jackson syndrome Test Ordered: Multi-Cancer Panel at [facility] (84 genes) Genes Included: AIP, ALK, APC, PATTY, AXIN2, BAP1, BARD1, BLM, BMPR1A, BRCA1, BRCA2, BRIP1, CASR, CDC73, CDH1, CDK4, CDKN1B, CDKN1C, CDKN2A (p14ARF), CDKN2A ([id number]), CEBPA, CHEK2, CTNNA1, DICER1, DIS3L2, EGFR, EPCAM, FH, FLCN, GATA2, GPC3, GREM1, HOXB13, HRAS, KIT, MAX, MEN1, MET, MITF, MLH1, MSH2, MSH3, MSH6, MUTYH, NBN, NF1, NF2, NTHL1, PALB2, PDGFRA, PHOX2B, PMS2, POLD1, POLE, POT1, YJFEW8A, PTCH1, PTEN, RAD50, RAD51C, RAD51D, RB1, RECQL4, RET, RUNX1, SDHA, SDHAF2, SDHB, SDHC, SDHD, SMAD4, SMARCA4, SMARCB1, SMARCE1, STK11, SUFU, TERC, TERT, HMOG131, TP53, TSC1, TSC2, VHL, WRN, WT1 Status [...] as of this encounter (statuses as of 06/20/2023) Resolved Problems Problem Noted Date Diagnosed Date [...] MFM consult Pt planning repeat c/s at [facility] 1. For patients with previous myomectomy involving [...] delivery at 36-37 weeks without amniocentesis per [employer]. Every effort [...] history of myomectomy. Scheduled for 06/25/15 at [facility] History of prior w ith short cervix, [...] -completed and normal Urine culture contaminated at [facility], repeat next visit 04/26/2015 Tdap Vaccine administered [...] indicate that she had a previous infection. [facility] EFW = 1487 01/10 (<3%) Reviewed [...] as of this encounter (statuses as of 06/20/2023) Immunizations Name Administration Dates Next Due Pneumococcal [...] on file documented as of this encounter Functional Status Functional Status Response [...] No 07/07/2014 documented as of this encounter Miscellaneous Notes * Telephone Encounter - Kinga Johnson OSA - 06/20/2023 2:56 PM EDT Pt is aware. * Telephone Encounter - Tamiko Baker MD - 06/20/2023 12:00 PM EDT Patient does not repeat lab work. Thanks, Dr. Baker * Telephone Encounter - Kinga Johnson OSA - 06/20/2023 8:54 AM EDT Pt called to see if she needs to repeat blood work for surgery on 07/05. She also wanted to add thatshe wanted to keep her ovaries. Please advise. documented in this encounter Plan of Treatment Upcoming Encounters Date Type Department Care Team (Late st Contact Info) Description 07/05/2023 3:15 PM EDT Nurse Only Nutrition & Weight Management, [address] [place] [address] [place] Nurse Gi Nutrition [address] [place] [address] 07/05/2023 3:45 PM EDT Imaging Radiology [facility] 1st Floor, [address] [facility] [place] [address] 07/06/2023 7:00 AM EDT Office Visit Non [facility], Operating Room, [facility] [address] [facility], [place] [address] Ash Kendrick MD [address] [place] [address] 07/25/2023 4:30 PM EDT Office Visit Gynecology/Obstetric s [facility] [address] [facility] [place] [address] Tamiko Baker MD [address] [place] [address] 08/09/2023 2:00 PM EDT Office Visit Nutrition & Weight Management, [facility] 132 [facility] [place] [address] Joan Bright PA-C [address] [place] [address] 10/05/2023 1:30 PM EDT Office Visit Dermatology [facility] [address] [place] [address] Duane Perez MD 200 [facility] [place] [address] 10/25/2023 2:00 PM EDT Office Visit General Internal Medicine [facility] 200 [facility] [place] [address] Steffi Zamudio MD [address] [facility] [place] [address] 03/07/2024 11:00 AM EST Telemedicine Hematology Oncology [facility] [address] [place] [address] Malignancy, Multidisciplinary Clinic High Risk Gi [address] [place] [address] 05/16/2024 1:30 PM EST Office Visit Dermatology [facility] [address] [place] [address] Duane Perez MD 200 [facility] [place] [address] Scheduled Procedures Name Priority Associated Diagnoses Date/Ti me COLONOSCOPY FLEXIBLE PROXIMAL DIAGNOSTIC Recall PMS2-related Jackson syndrome (HNPCC4) ESOPHAGOGASTRODUODENOSCOPY ( EGD), FLEXIBLE, TRANSORAL, DIAGNOSTIC Recall PMS2-related Jackson syndrome (HNPCC4) Health Maintenance Due Date Last Done Comments Hepatitis B (1 of 3 - 19+ 3-dose series) 11/28/1999 HPV/Co-Test 2010 COVID-19 Vaccine (2022- season) 2022 Influenza Vaccine (FLU shot) (#1) 2022 02/26/2020, 01/22/2019, 01/06/2014, Additional history exists Mammogram 06/16/2023 06/15/2022, 05/25, 06/09/2021, Additional history exists Depression Screening 04/26/2024 04/26/2023 Cervical Cancer Screening 05/13/2024 Pap Smear 05/13/2024 05/13/2021, 03/27, 01/13/2015, Additional history exists DTaP,Tdap,and Td Vaccines (4 - Td or Tdap) 04/26/2025 04/26/2015, 01/21/2013, 05/04/2011 Diabetes Screening 06/06/2026 06/07/2023, 0 06/07/2023, 11/04/2022, Additional history exists Lipid Panel 06/06/2028 06/07/2023, 03/0 04/2022, 11/09/2021, Additional history exists Pneumococcal Vaccine: Pediatrics [...] Not on filedocumented as of this encounter Advance Directives Latest Code Status [...] and were consensually agreed upon. Care Teams Power Wood Sawyer Relationship Specialty Start Date End Date Steffi Zamudio MD [address] [place] [address] PCP - General Internal Medicine 05/04/11 documented as of this encounter
--- OUTSIDE RECORDS SUMMARY | 2023-07-06 23:12 | External Medical Summary | Summary of Care ---
Author Name Unknown Organization [facility] Address [address] [place] [address] Phone [phone] Care Team Providers Care Toxicologist Name Role Phone Steffi Zamudio MD Primary Care Provider [phone] Reason for Visit * Reason Onset Date Comments Test Results Lab 06/17/2023 Encounter Details Date Type Department Care Team (Late st Contact Info) Description 06/17/2023 Telephone Nutrition & Weight Management, [facility] [email or web address] [place] [address] Joan Bright PA-C [address] [place] [address] Test Results Lab Allergies Active Allergy Reactions Criticality Noted Date Comments Adhesive Tape Rash 03/23/2021 Band-aides -rash Gluten Rash 07/12/2012 Celiac disease documented as of this encounter (statuses as of 06/18/2023) Medications Medication Sig Dispensed Refills Start Date [...] 1,000 mcgIndications:Intestinal postoperative nonabsorption 1000 mcg IM [id number] 06/07/2023 08/01/19 25 Active documented as of this encounter (statuses as of 06/18/2023) Active Problems Problem Noted Date Diagnosed Date Class 1 obesity due to excess calories in adult 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 Overview: Genetic Testing Completed 08/30/2022: Test Result: POSITIVE Gene: PMS2 Variant: Deletion (Exons 12-14) ClinVarID: None This result is consistent with Jackson syndrome Test Ordered: Multi-Cancer Panel at [facility] (84 genes) Genes Included: AIP, ALK, APC, PATTY, AXIN2, BAP1, BARD1, BLM, BMPR1A, BRCA1, BRCA2, BRIP1, CASR, CDC73, CDH1, CDK4, CDKN1B, CDKN1C, CDKN2A (p14ARF), CDKN2A (o06SMK2o), CEBPA, CHEK2, CTNNA1, DICER1, DIS3L2, EGFR, EPCAM, FH, FLCN, GATA2, GPC3, GREM1, HOXB13, HRAS, KIT, MAX, MEN1, MET, MITF, MLH1, MSH2, MSH3, MSH6, MUTYH, NBN, NF1, NF2, NTHL1, PALB2, PDGFRA, PHOX2B, PMS2, POLD1, POLE, POT1, QCYML2L, PTCH1, PTEN, RAD50, RAD51C, RAD51D, RB1, RECQL4, RET, RUNX1, SDHA, SDHAF2, SDHB, SDHC, SDHD, SMAD4, SMARCA4, SMARCB1, SMARCE1, STK11, SUFU, TERC, TERT, NMMM049, TP53, TSC1, TSC2, VHL, WRN, WT1 Status [...] as of this encounter (statuses as of 06/18/2023) Resolved Problems Problem Noted Date Diagnosed Date [...] MFM consult Pt planning repeat c/s at [facility] 1. For patients with previous myomectomy involving [...] delivery at 36-37 weeks without amniocentesis per [employer]. Every effort [...] history of myomectomy. Scheduled for 06/25/15 at [facility] History of prior w ith short cervix, [...] indicate that she had a previous infection. [facility] EFW = 1487 01/10 (<3%) Reviewed [...] this could be arranged. Rh negative, antepartum 07/15/201[address] 09/2015 Overview: Rhogam candidate Rhogam given 04/26/2015 Ruthann [...] as of this encounter (statuses as of 06/18/2023) Immunizations Name Administration Dates Next Due Pneumococcal [...] encounter Miscellaneous Notes * Telephone Encounter - Angela Williamson RN - 06/18/2023 9:44 AM EDT I left a message for the patient to return my call. * Telephone Encounter - Joan Bright PA-C - 06/17/2023 11:43 AM EDT Please call patient Vitamin A and zinc are low Would strongly recommend restarting her multivitamin twice daily, everday Can recheck labs in 2-3 months to ensure improvement documented in this encounter Plan of Treatment Upcoming Encounters Date Type Department Care Team (Late st Contact Info) Description 07/05/2023 3:15 PM EDT Nurse Only Nutrition & Weight Management, [facility] 132 [facility] [place] [address] [facility], Nurse Gi Nutrition [facility] [address] [place] [address] 07/05/2023 3:45 PM EDT Imaging Radiology [facility] 1st [facility] [place] 132 [place] [address] 07/06/2023 7:00 AM EDT Office Visit Non [facility], Operating Room, [facility] [address] [facility] [address] Ash Kendrick MD [address] [place] [address] 07/25/2023 4:30 PM EDT Office Visit Gynecology/Obstetric s [facility] [address] [place] [address] Tamiko Baker MD [address] [place] [address] 08/09/2023 2:00 PM EDT Office Visit Nutrition & Weight Management, [facility] [place] [address] Jona Bright PA-C [address] [place] [address] 10/05/2023 1:30 PM EDT Office Visit Dermatology [facility] [address] [facility] [address] Duane Perez MD 200 [facility] [place] [address] 10/25/2023 2:00 PM EDT Office Visit General Internal Medicine [facility] [address] [place] [address] Steffi Zamudio MD 200 [facility] [place] [address] 03/07/2024 11:00 AM EST Telemedicine Hematology Oncology [facility] [place] [address] [place] [address] Malignancy, Multidisciplinary Clinic High Risk Gi [address] [facility] [place] [address] 05/16/2024 1:30 PM EST Office Visit Dermatology [facility] [address] [place] [address] Duane Perez MD 200 [place] [address] Scheduled Orders Name Type Priority Associated Diagnoses Orde r Schedule VITAMIN A (RETINOL) Lab Routine Intestinal postoperative nonabsorption Expected: 08/17/2023 (Approximate), Expires: 12/18/2023 ZINC Lab Routine Intestinal postoperative nonabsorption Expected: 08/17/2023 (Approximate), Expires: 12/18/2023 Scheduled Procedures Name Priority Associated Diagnoses Date/Ti me COLONOSCOPY FLEXIBLE PROXIMAL DIAGNOSTIC Recall PMS2-related Jackson syndrome (HNPCC4) ESOPHAGOGASTRODUODENOSCOPY ( EGD), FLEXIBLE, TRANSORAL, DIAGNOSTIC Recall PMS2-related Jackson syndrome (HNPCC4) Health Maintenance Due Date Last Done Comments Hepatitis B (1 of 3 - 19+ 3-dose series) 11/28/1999 HPV/Co-Test 2010 COVID-19 Vaccine ( season) 2022 Influenza Vaccine (FLU shot) (#1) [...] Additional history exists Lipid Panel 06/06/2028 06/07/2023, 0304/2022, 11/09/2021, Additional history exists Pneumococcal Vaccine: Pediatrics [...] as of this encounter Visit Diagnoses Diagnosis 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 Care Teams Toxicologist Relationship Specialty Start Date End Date Steffi Zamudio MD 200 [place] [address] PCP - General Internal Medicine 05/04/11 documented as of this encounter
--- OUTSIDE RECORDS SUMMARY | 2023-07-06 23:12 | External Medical Summary | Summary of Care ---
Author Name Unknown Organization [facility] Address [address] [place] [address] Phone [phone] Care Team Providers Care Tar Roofer Name Role Phone Steffi Zamudio MD Primary Care Provider [phone] Reason for Visit * Reason Comments Nurse Documentation B12 Encounter Details Date Type Department Care Team (Late st Contact Info) Description 07/05/2023 3:15 PM EDT Nurse Only Nutrition & Weight Management, [facility] [place] [address] [facility] [address] Nurse [place] [facility] 132 [facility] [address] Nurse Documentation (B12/) Allergies Active Allergy Reactions [...] 1,000 mcgIndications:Intestinal postoperative nonabsorption 1000 mcg IM [id number] 06/07/2023 08/01/19 25 Active documented as of this encounter (statuses as of 07/05/2023) Active Problems Problem Noted Date Diagnosed Date Class 1 obesity due to excess calories in adult 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 (84 genes) Genes Included: AIP, ALK, APC, PATTY, AXIN2, BAP1, BARD1, BLM, BMPR1A, BRCA1, BRCA2, BRIP1, CASR, CDC73, CDH1, CDK4, CDKN1B, CDKN1C, CDKN2A (p14ARF), CDKN2A (e34QLF7s), CEBPA, CHEK2, CTNNA1, DICER1, DIS3L2, EGFR, EPCAM, FH, FLCN, GATA2, GPC3, GREM1, HOXB13, HRAS, KIT, MAX, MEN1, MET, MITF, MLH1, MSH2, MSH3, MSH6, MUTYH, NBN, NF1, NF2, NTHL1, PALB2, PDGFRA, PHOX2B, PMS2, POLD1, POLE, POT1, HMAVQ1H, PTCH1, PTEN, RAD50, RAD51C, RAD51D, RB1, RECQL4, RET, RUNX1, SDHA, SDHAF2, SDHB, SDHC, SDHD, SMAD4, SMARCA4, SMARCB1, SMARCE1, STK11, SUFU, TERC, TERT, UQVE132, TP53, TSC1, TSC2, VHL, WRN, WT1 Status [...] MFM consult Pt planning repeat c/s at [facility] 1. For patients with previous myomectomy involving [...] delivery at 36-37 weeks without amniocentesis per [employer]. Every effort [...] history of myomectomy. Scheduled for 06/25/15 at [facility] History of prior w ith short cervix, [...] indicate that she had a previous infection. [facility] EFW = 1487 01/10 (<3%) Reviewed [...] Team (Late st Contact Info) Description 07/05/2023 3:45 PM EDT Imaging Radiology [address] [place] [address] 07/06/2023 7:00 AM EDT Office Visit Non [facility], Operating Room, [facility] [address] [facility], [place] [address] Ash Kendrick MD [address] [place] [address] 07/25/2023 4:30 PM EDT Office Visit Gynecology/Obstetric s [facility] [address] [facility] [place] [address] Tamiko Baker MD [address] [place] [address] 08/09/2023 2:00 PM EDT Office Visit Nutrition & Weight Management, [facility] [address] [facility] [place] [address] Joan Bright PA-C [address] [place] [address] 10/05/2023 1:30 PM EDT Office Visit Dermatology [place] [place] [address] [place] [address] Duane Perez MD 200 [facility] [place] [address] 10/25/2023 2:00 PM EDT Office Visit General Internal Medicine [place] [address] [place] [address] Steffi Zamudio MD 200 [facility] [place] [address] 03/07/2024 11:00 AM EST Telemedicine Hematology Oncology [facility] [address] [place] [address] Malignancy, Multidisciplinary Clinic High Risk Gi [address] [place] [address] 05/16/2024 1:30 PM EST Office Visit Dermatology [place] [address] [place] [address] Duane Perez MD 200 [facility] [place] [address] Scheduled Procedures Name Priority Associated Diagnoses Date/Ti me COLONOSCOPY FLEXIBLE PROXIMAL DIAGNOSTIC Recall PMS2-related Jackson syndrome (HNPCC4) ESOPHAGOGASTRODUODENOSCOPY ( EGD), FLEXIBLE, TRANSORAL, DIAGNOSTIC Recall PMS2-related Jackson syndrome (HNPCC4) Health Maintenance Due Date Last Done Comments Hepatitis B (1 of 3 - 19+ 3-dose series) 11/28/1999 HPV/Co-Test 2010 COVID-19 Vaccine (1 - season) 2022 Mammogram 06/16/2023 06/15/2022, 05/25, 06/09/2021, [...] (Cyanocobalamin) inj 1,000 mcg 1,000 mcg, Intramuscular, [id number], First dose on Stephani 06/07/23 at 1715, [...] and were consensually agreed upon. Care Teams Tar Roofer Relationship Specialty Start Date End Date Steffi Zamudio MD 200 [place] [address] PCP - General Internal Medicine 05/04/11 documented as of this encounter
--- OUTSIDE RECORDS SUMMARY | 2023-07-06 23:12 | External Medical Summary | Summary of Care ---
Author Name Unknown Organization [facility] Address [address] [place] [address] Phone [phone] Care Team Providers Care Outpatient Receptionist Name Role Phone Steffi Zamudio MD Primary Care Provider [phone] Reason for Visit * Reason Onset Date Comments Test Results Lab 06/17/2023 Encounter Details Date Type Department Care Team (Late st Contact Info) Description 06/17/2023 Telephone Nutrition & Weight Management, [facility] [address] [place] [address] Joan Bright PA-C [address] [place] [address] Test Results Lab Allergies Active Allergy Reactions Criticality Noted Date Comments Adhesive Tape Rash 03/23/2021 Band-aides -rash Gluten Rash 07/12/2012 Celiac disease documented as of this encounter (statuses as of 06/21/2023) Medications Medication Sig Dispensed Refills Start Date [...] 1,000 mcgIndications:Intestinal postoperative nonabsorption 1000 mcg IM [id number] 06/07/2023 08/01/19 25 Active documented as of this encounter (statuses as of 06/21/2023) Active Problems Problem Noted Date Diagnosed Date Class 1 obesity due to excess calories in adult 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 Overview: Genetic Testing Completed 08/30/2022: Test Result: POSITIVE Gene: PMS2 Variant: Deletion (Exons 12-14) ClinVarID: None This result is consistent with Jackson syndrome Test Ordered: Multi-Cancer Panel at [facility] (84 genes) Genes Included: AIP, ALK, APC, PATTY, AXIN2, BAP1, BARD1, BLM, BMPR1A, BRCA1, BRCA2, BRIP1, CASR, CDC73, CDH1, CDK4, CDKN1B, CDKN1C, CDKN2A (p14ARF), CDKN2A (r61FGS1i), CEBPA, CHEK2, CTNNA1, DICER1, DIS3L2, EGFR, EPCAM, FH, FLCN, GATA2, GPC3, GREM1, HOXB13, HRAS, KIT, MAX, MEN1, MET, MITF, MLH1, MSH2, MSH3, MSH6, MUTYH, NBN, NF1, NF2, NTHL1, PALB2, PDGFRA, PHOX2B, PMS2, POLD1, POLE, POT1, GKPMC8Y, PTCH1, PTEN, RAD50, RAD51C, RAD51D, RB1, RECQL4, RET, RUNX1, SDHA, SDHAF2, SDHB, SDHC, SDHD, SMAD4, SMARCA4, SMARCB1, SMARCE1, STK11, SUFU, TERC, TERT, NWPX909, TP53, TSC1, TSC2, VHL, WRN, WT1 Status [...] as of this encounter (statuses as of 06/21/2023) Resolved Problems Problem Noted Date Diagnosed Date [...] MFM consult Pt planning repeat c/s at [facility] 1. For patients with previous myomectomy involving [...] delivery at 36-37 weeks without amniocentesis per [employer]. Every effort [...] history of myomectomy. Scheduled for 06/25/[address] [facility] History of prior w ith short cervix, [...] indicate that she had a previous infection. [facility] EFW = 1487 01/10 (<3%) [...] as of this encounter (statuses as of 06/21/2023) Immunizations Name Administration Dates Next Due Pneumococcal [...] Telephone Encounter - Angela Williamson RN - 06/21/2023 2:31 PM EDT This has been fully explained to the patient, who indicates understanding. * Telephone Encounter - Angela Williamson RN - 06/21/2023 2:31 PM EDT Charmaine Gill OSA [place] 06/18/23 10:12 AM Note Pt called for lab results. I read back the note in her chart and the instruction to restart multivitamin. I also let her know that she is to recheck labs in 2-3 months. * Telephone Encounter - Angela Williamson RN [...] EDT Nurse Only Nutrition & Weight Management, [facility] [address] [place] [address] [place], Nurse Gi Nutrition [facility] [place] [address] 07/05/2023 3:45 PM EDT Imaging Radiology [facility] 1st Floor, [place] 132 [place] [address] 07/06/2023 7:00 AM EDT Office Visit Non [facility], Operating Room, [place] [address] [address] [facility] [place] [address] Ash Kendrick MD [address] [place] [address] 07/25/2023 4:30 PM EDT Office Visit Gynecology/Obstetric s [facility] [address] [place] [address] Tamiko Baker MD [address] [place] [address] 08/09/2023 2:00 PM EDT Office Visit Nutrition & Weight Management, [facility] [address] [place] [address] Joan Bright PA-C [address] [place] [address] 10/05/2023 1:30 PM EDT Office Visit Dermatology [facility] 200 [facility] [place] [address] Duane Perez MD [address] [place] [address] 10/25/2023 2:00 PM EDT Office Visit General Internal Medicine [facility] 200 [facility] [address] [place], [place] [address] Steffi Zamudio MD 200 [facility] [address] [facility], [place] [address] 03/07/2024 11:00 AM EST Telemedicine Hematology Oncology [facility] [address] [place] [phone] Malignancy, Multidisciplinary Clinic High Risk Gi [address] [place], [place] [address] 05/16/2024 1:30 PM EST Office Visit Dermatology [facility] [place] 200 [facility] [place] [address] Duane Perez MD 200 [facility] [place], [place] [address] Scheduled Orders Name Type Priority Associated Diagnoses [...] and were consensually agreed upon. Care Teams Outpatient Receptionist Relationship Specialty Start Date End Date Steffi Zamudio MD 200 [facility] [place] [address] PCP - General Internal Medicine 05/04/11 documented as of this encounter
--- OUTSIDE RECORDS SUMMARY | 2023-07-06 23:12 | External Medical Summary | Summary of Care ---
Author Name Unknown Organization [facility] Address [address] [place] [address] Phone [phone] Care Team Providers Care Manufacturing Design Engineer Name Role Phone Steffi Zamudio MD Primary Care Provider [phone] Reason for Visit * Reason Onset Date Comments Referral 06/15/2023 Encounter Details Date Type Department Care Team (Late st Contact Info) Description 06/15/2023 Telephone Gynecology/Oncology, [place] [address] [place] [address] Nurse, Specialty Referral Allergies Active Allergy Reactions Criticality Noted Date Comments Adhesive Tape Rash 03/23/2021 Band-aides -rash Gluten Rash 07/12/2012 Celiac disease documented as of this encounter (statuses as of 06/15/2023) Medications Medication Sig Dispensed Refills Start Date [...] 1,000 mcgIndications:Intestinal postoperative nonabsorption 1000 mcg IM [id number] 06/07/2023 08/01/19 25 Active documented as of this encounter (statuses as of 06/15/2023) Active Problems Problem Noted Date Diagnosed Date Class 1 obesity due to excess calories in adult 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 Overview: Genetic Testing Completed 08/30/2022: Test Result: POSITIVE Gene: PMS2 Variant: Deletion (Exons 12-14) ClinVarID: None This result is consistent with Jackson syndrome Test Ordered: Multi-Cancer Panel at [facility] (84 genes) Genes Included: AIP, ALK, APC, PATTY, AXIN2, BAP1, BARD1, BLM, BMPR1A, BRCA1, BRCA2, BRIP1, CASR, CDC73, CDH1, CDK4, CDKN1B, CDKN1C, CDKN2A (p14ARF), CDKN2A ([id number]), CEBPA, CHEK2, CTNNA1, DICER1, DIS3L2, EGFR, EPCAM, FH, FLCN, GATA2, GPC3, GREM1, HOXB13, HRAS, KIT, MAX, MEN1, MET, MITF, MLH1, MSH2, MSH3, MSH6, MUTYH, NBN, NF1, NF2, NTHL1, PALB2, PDGFRA, PHOX2B, PMS2, POLD1, POLE, POT1, NBOCD6F, PTCH1, PTEN, RAD50, RAD51C, RAD51D, RB1, RECQL4, RET, RUNX1, SDHA, SDHAF2, SDHB, SDHC, SDHD, SMAD4, SMARCA4, SMARCB1, SMARCE1, STK11, SUFU, TERC, TERT, XLEK000, TP53, TSC1, TSC2, VHL, WRN, WT1 Status [...] as of this encounter (statuses as of 06/15/2023) Resolved Problems Problem Noted Date Diagnosed Date Resolved Date Body mass index (BMI) of 40. 0 to 44.9 in adult 07/04/2021 10/05/2022 Overview: Per Obesity protocol BMI 33.0-33.9,adult 06/13/2019 10/20/19 23 Family history of cancer 10/06/2015 macrosomia 06/02/2015 [...] delivery at 36-37 weeks without amniocentesis per [employer]. Every effort [...] indicate that she had a previous infection. [facility] EFW = 1487 01/10 (<3%) Reviewed [...] as of this encounter (statuses as of 06/15/2023) Immunizations Name Administration Dates Next Due Pneumococcal [...] encounter Miscellaneous Notes * Telephone Encounter - Mihaela Garcia RN - 06/15/2023 11:25 AM EDT I called patient regarding the referral we received from Dr Baker. She has her surgery scheduled on 07/06/[address] Baker and general surgery for a hernia repair. Her visit with Dr Jackson to discuss whether or not she should retain her ovaries when she has the hysterectomy. I offered her an appointment, but she does not want to travel to [place]. I will remove her referral and message Dr Bkaer. documented in this encounter Plan of Treatment Upcoming Encounters Date Type Department Care Team (Late st Contact Info) Description 07/05/2023 3:15 PM EDT Nurse Only Nutrition & Weight Management, [facility] [address] [place] [address] [place], Nurse Gi Nutrition [facility] [address] [facility] [place] [address] 07/05/2023 3:45 PM EDT Imaging Radiology [facility] 1st Floor, [place] [address] [place] [address] 07/06/2023 7:00 AM EDT Office Visit Non [facility], Operating Room, [place] [address] [address] [facility], [place] [address] Ash Kendrick MD [address] [place] [address] 07/25/2023 4:30 PM EDT Office Visit Gynecology/Obstetric s [facility] [address] [facility] [address] Tamiko Baker MD [address] [place] [address] 08/09/2023 2:00 PM EDT Office Visit Nutrition & Weight Management, [facility] [place] [address] Joan Bright PA-C [address] [place] [address] 10/05/2023 1:30 PM EDT Office Visit Dermatology [facility] [address] [place] [address] Duane Perez MD [address] [facility] [place] [address] 10/25/2023 2:00 PM EDT Office Visit General Internal Medicine [facility] [place] [address] [place] [address] Steffi Zamudio MD [facility] [place] [address] 03/07/2024 11:00 AM EST Telemedicine Hematology Oncology [facility] [address] [place] [address] Malignancy, Multidisciplinary Clinic High Risk Gi [address] [place] [address] 05/16/2024 1:30 PM EST Office Visit Dermatology [facility] [place] [address] [place] [address] Duane Perez MD [address] [place] [place] [address] Scheduled Procedures Name Priority Associated Diagnoses Date/Ti me COLONOSCOPY FLEXIBLE PROXIMAL DIAGNOSTIC Recall PMS2-related Jackson syndrome (HNPCC4) ESOPHAGOGASTRODUODENOSCOPY ( EGD), FLEXIBLE, TRANSORAL, DIAGNOSTIC Recall PMS2-related Jackson syndrome (HNPCC4) Health Maintenance Due Date Last Done Comments Hepatitis B (1 of 3 - 19+ 3-dose series) 11/28/1999 HPV/Co-Test 2010 COVID-19 Vaccine (1 - 2022-24 season) 2022 Influenza Vaccine (FLU shot) (#1) [...] and were consensually agreed upon. Care Teams Manufacturing Design Engineer Relationship Specialty Start Date End Date Steffi Zamudio MD [address] [facility] [place] [address] PCP - General Internal Medicine 05/04/11 documented as of this encounter
--- OUTSIDE RECORDS SUMMARY | 2023-07-06 23:12 | External Medical Summary | Summary of Care ---
Author Name Unknown Organization [facility] Address [address] [place] [address] Phone [phone] Care Team Providers Care Adjutant General Name Role Phone Steffi Zamudio MD Primary Care Provider [phone] Reason for Referral * Evaluate & Treat - Unlimited Visits (Within 10 days (routine)) - Authorized Specialty Diagnoses / Procedures Referred By Galilea dominguez Referred To Contact Gynecologic Oncology / Gynecology Oncology Diagnoses PMS2-related Jackson syndrome (HNPCC4) Tamiko Baker MD [address] [place] [address] Referral ID Status Reason Start Date Expiration Date Visits Requested Visits Authorized [id number] Authorized Specialty Services Required 06/11/2023 999 999 Question Answer Referral Priority Within 10 days (routine) Where should this appointment be scheduled? Nik Comments 42 yo with a multi-fibroid uterus. 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 Patient was scheduled for a hysterectomy and hernia repair on 06/08/2023 in [place]. Surgery was cancelled secondary to General Surgery no longer being available for the hernia repair. Patient would like to discuss (consultation) with Bottled Beverage Inspector Oncology about the diagnosis and implications for removing or keeping her ovaries. Encounter Details Date Type Department Care Team (Late st Contact Info) Description 06/08/2023 Telephone Gynecology/Obstetrics, [address] [place] [address] Tamiko Baker MD [address] [place] [phone] Allergies Active Allergy Reactions Criticality Noted Date Comments Adhesive Tape Rash 03/23/2021 Band-aides -rash Gluten Rash 07/12/2012 Celiac disease documented as of this encounter (statuses as of 06/13/2023) Medications Medication Sig Dispensed Refills Start Date End Date Status Hydroquinone 4 % External Cream Apply to brown spots on face 2x per day for 2 months 28.35 g 1 02/01/2021 Active Vitamin D 50 MCG (1999 UT) Oral CapsuleIndicatio ns:Status following gastric banding surgery for weight loss Take by mouth 2,000 Units in the morning. 0 06/02/2021 Active LORazepam 0.5 MG Oral Tablet (Ativan)Indicati ons:Depression with anxiety Take by mouth 1 Tablet [...] 5 04/17/2022 Active Dapsone 5 % External GelIndications:A cne vulgaris Apply to acne on face and chest 60 g 2 04/09/2023 Active buPROPion HCl ER (XL) 150 MG Oral Tablet Extended Release 24 Hour (Wellbutrin XL)Indications:M ixed emotional features as adjustment reaction TAKE 1 [...] Active Iron 325 (65 Fe) MG Oral TabletIndication s:Status following gastric banding surgery for weight loss,Iron deficiency anemia secondary to inadequate dietary iron intake Take 1 tablet by mouth once daily 90 Tablet 2 08/16/2022 06/12/2023 Discontinued Hospital, Clinic, or Other Facility Administered Medication Ordered Dose Route Frequency Start Date End Date Status vitamin b-12 (Cyanocobalamin) inj 1,000 mcgIndications:Intestinal postoperative nonabsorption 1000 mcg IM [id number] 06/07/2023 08/01/19 25 Active documented as of this encounter (statuses as of 06/13/2023) Active Problems Problem Noted Date Diagnosed Date Class 1 obesity due to excess calories in adult 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 Overview: Genetic Testing Completed 08/30/2022: Test Result: POSITIVE Gene: PMS2 Variant: Deletion (Exons 12-14) ClinVarID: None This result is consistent with Jackson syndrome Test Ordered: Multi-Cancer Panel at [facility] (84 genes) Genes Included: AIP, ALK, APC, PATTY, AXIN2, BAP1, BARD1, BLM, BMPR1A, BRCA1, BRCA2, BRIP1, CASR, CDC73, CDH1, CDK4, CDKN1B, CDKN1C, CDKN2A (p14ARF), CDKN2A ([id number]), CEBPA, CHEK2, CTNNA1, DICER1, DIS3L2, EGFR, EPCAM, FH, FLCN, GATA2, GPC3, GREM1, HOXB13, HRAS, KIT, MAX, MEN1, MET, MITF, MLH1, MSH2, MSH3, MSH6, MUTYH, NBN, NF1, NF2, NTHL1, PALB2, PDGFRA, PHOX2B, PMS2, POLD1, POLE, POT1, WSNMN0E, PTCH1, PTEN, RAD50, RAD51C, RAD51D, RB1, RECQL4, RET, RUNX1, SDHA, SDHAF2, SDHB, SDHC, SDHD, SMAD4, SMARCA4, SMARCB1, SMARCE1, STK11, SUFU, TERC, TERT, AGTS425, TP53, TSC1, TSC2, VHL, WRN, WT1 Status [...] as of this encounter (statuses as of 06/13/2023) Resolved Problems Problem Noted Date Diagnosed Date [...] MFM consult Pt planning [place] c[place] at [facility] 1. For patients with previous myomectomy [...] delivery at 36-37 weeks without amniocentesis per [employer]. Every effort [...] history of myomectomy. Scheduled for [place]/15 at [facility] History of prior w ith short [...] indicate that she had a previous infection. [facility] EFW = 1487 01/10 (<3%) Reviewed the [...] this could be arranged. Rh negative, antepartum 07/15/2012 04/0 09/2015 Overview: Rhogam candidate Rhogam given 04/26/2015 Ruthann Parr, LUIS ICD-10 update of inactive term Supervision of [...] as of this encounter (statuses as of 06/13/2023) Immunizations Name Administration Dates Next Due Pneumococcal [...] encounter Miscellaneous Notes * Telephone Encounter - Barbara Pro LPN - 06/13/2023 10:02 AM EDT Patient notified. She will consider. * Telephone Encounter - Tamiko Baker MD - 06/12/2023 10:20 AM EDT Recommending depo lupron for a short duration until surgery to assess if any uterine shrinkage can occur, which would make laparoscopy a more feasible approach. Dr. Baker * Telephone Encounter - Jennifer Ashby RN - 06/11/2023 2:20 PM EDT Patient called and made aware. She states that she does not want to go back on lupron unless necessary. She reports she did not have a good reaction to Lupron the last time she had this medication. * Telephone Encounter - Tamiko Baker MD - 06/11/2023 1:57 PM EDT Will refer to Bottled Beverage Inspector Oncology. Please also ask Patient if she would like to restart depo lupron to see if fibroids will shrink while she awaits surgery. Thanks, Dr. Baker * Telephone Encounter - Jennifer Ashby RN - 06/11/2023 12:29 PM EDT Patient called and made aware. She states that she is not looking to change providers. She just wants to talk with some one else to get their recommendations as she is undecided what to do or not. She would like referral to custom protection officer onc if this is what would be needed to discuss with them and ask some qu estions. * Telephone Encounter - Tamiko Baker MD - 06/11/2023 7:49 AM EDT Patient was discussed with Bottled Beverage Inspector Oncologist due to her Jackson Syndrome. Patient would need a referral if she would like to further discuss. Please let me know what Patient desires. Thanks, Dr. Baker * Telephone Encounter - Sugey Alvarez, RN - 06/08/2023 1:37 PM EDT T/C from pt stating that she was seen in office for surgical consult. Provider was consulting with another physician in [place] regarding whether pt should keep her ovaries or not. Pt requesting name of physician that was being consulted as she would like to reach out with further questions. Advised pt that she would most likely need to schedule an appt with the provider in [place]. Dr. Baker, please advise. Carlos Eduardo's pt. documented in this encounter Plan of Treatment Upcoming Encounters Date Type Department Care Team (Late st Contact Info) Description 07/05/2023 3:15 PM EDT Nurse Only Nutrition & Weight Management, [facility] [address] [place] [address] ConnorsNurse alice Gi Nutrition [facility] [address] [place] [address] 07/05/2023 3:45 PM EDT Imaging Radiology [facility] [facility] [address] [place] [address] 07/06/2023 7:00 AM EDT Office Visit [facility], Operating Room, [facility] [address] [place] [facility] [place] [address] Ash Kendrick MD [address] [place] [address] 07/25/2023 4:30 PM EDT Office Visit Gynecology/Obstetric s [facility] [address] [place] [address] Tamiko Baker MD [address] [place] [address] 08/09/2023 2:00 PM EDT Office Visit Nutrition & Weight Management, [facility] [address] [place] [address] Joan Bright PA-C [address] [place] [address] 10/05/2023 1:30 PM EDT Office Visit Dermatology [facility] [place] [address] Duane Perez MD 200 [facility] [place] [address] 10/25/2023 2:00 PM EDT Office Visit General Internal Medicine [facility] [place] [address] [facility] [place] [address] Steffi Zamudio MD 200 [facility] [place] [address] 03/07/2024 11:00 AM EST Telemedicine Hematology Oncology [facility] [address] [place] [address] Malignancy, Multidisciplinary Clinic High Risk Gi [address] [place] [address] 05/16/2024 1:30 PM EST Office Visit Dermatology [facility] [place] [address] [facility] [place] [address] Duane Perez MD 200 [facility] [place] [address] Scheduled Procedures Name Priority Associated Diagnoses Date/Ti me COLONOSCOPY FLEXIBLE PROXIMAL DIAGNOSTIC Recall PMS2-related Jackson syndrome (HNPCC4) ESOPHAGOGASTRODUODENOSCOPY ( EGD), FLEXIBLE, TRANSORAL, DIAGNOSTIC Recall PMS2-related Jackson syndrome (HNPCC4) Scheduled Referrals Name Type Priority Associated Diagnoses Orde r Schedule ENTERTAINMENT CENTRE MANAGER/ONC REFERRAL OP Referral Within 10 da ys (routine) PMS2-related Jackson syndrome (HNPCC4) Ordered: 06/11/2023 Health Maintenance Due Date Last Done Comments Hepatitis B (1 of 3 - 19+ 3-dose series) 11/28/1999 HPV/Co-Test 2010 COVID-19 Vaccine (24 season) 2022 Influenza Vaccine (FLU shot) (#1) [...] as of this encounter Visit Diagnoses Diagnosis PMS2-related Jackson syndrome (HNPCC4)- Primary documented in this encounter Advance Directives Latest [...] and were consensually agreed upon. Care Teams Adjutant General Relationship Specialty Start Date End Date Steffi Zamudio MD 200 [place] [address] PCP - General Internal Medicine 05/04/11 documented as of this encounter
--- OUTSIDE RECORDS SUMMARY | 2023-07-06 23:12 | External Medical Summary | Summary of Care ---
Author Name Unknown Organization [facility] Address [address] [place] [address] Phone [phone] Care Team Providers Care Occupational Health Coordinator Name Role Phone Steffi Zamudio MD Primary Care Provider [phone] Reason for Visit * Reason Comments Nurse Documentation Weight check Encounter Details Date Type Department Care Team (Late st Contact Info) Description 06/14/2023 3:45 PM EDT Nurse Only Nutrition & Weight Management, [facility] [place] [address] [place] [address] Nurse [place] Gi Nutrition [facility] 132 [place] [address] Nurse Documentation (Weight check) Allergies Active Allergy Reactions Criticality Noted Date Comments Adhesive Tape Rash 03/23/2021 Band-aides -rash Gluten Rash 07/12/2012 Celiac disease documented as of this encounter (statuses as of 06/14/2023) Medications Medication Sig Dispensed Refills Start Date [...] 1,000 mcgIndications:Intestinal postoperative nonabsorption 1000 mcg IM [id number] 06/07/2023 08/01/19 25 Active documented as of this encounter (statuses as of 06/14/2023) Active Problems Problem Noted Date Diagnosed Date Class 1 obesity due to excess calories in adult 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 Overview: Genetic Testing Completed 08/30/2022: Test Result: POSITIVE Gene: PMS2 Variant: Deletion (Exons 12-14) ClinVarID: None This result is consistent with Jackson syndrome Test Ordered: Multi-Cancer Panel at [facility] (84 genes) Genes Included: AIP, ALK, APC, PATTY, AXIN2, BAP1, BARD1, BLM, BMPR1A, BRCA1, BRCA2, BRIP1, CASR, CDC73, CDH1, CDK4, CDKN1B, CDKN1C, CDKN2A (p14ARF), CDKN2A ([id number]), CEBPA, CHEK2, CTNNA1, DICER1, DIS3L2, EGFR, EPCAM, FH, FLCN, GATA2, GPC3, GREM1, HOXB13, HRAS, KIT, MAX, MEN1, MET, MITF, MLH1, MSH2, MSH3, MSH6, MUTYH, NBN, NF1, NF2, NTHL1, PALB2, PDGFRA, PHOX2B, PMS2, POLD1, POLE, POT1, JCONQ2S, PTCH1, PTEN, RAD50, RAD51C, RAD51D, RB1, RECQL4, RET, RUNX1, SDHA, SDHAF2, SDHB, SDHC, SDHD, SMAD4, SMARCA4, SMARCB1, SMARCE1, STK11, SUFU, TERC, TERT, BOWN252, TP53, TSC1, TSC2, VHL, WRN, WT1 Status [...] as of this encounter (statuses as of 06/14/2023) Resolved Problems Problem Noted Date Diagnosed Date [...] MFM consult Pt planning repeat c/s at [facility] 1. For patients with previous myomectomy involving [...] delivery at 36-37 weeks without amniocentesis per [employer]. Every effort [...] history of myomectomy. Scheduled for 06/25/15 at [facility] History of prior w ith short cervix, [...] indicate that she had a previous infection. [facility] EFW = 1487 01/10 (<3%) Reviewed the [...] as of this encounter (statuses as of 06/14/2023) Immunizations Name Administration Dates Next Due Pneumococcal [...] Sign Reading Time Taken Comments Blood Pressure 100/64 06/14/2023 4:11 PM EDT Pulse 68 06/14/2023 4:11 PM EDT Temperature 36.5 C (97.7 F) 06/14/2023 4:11 PM ED T Respiratory Rate - - Oxygen Saturation - - Inhaled Oxygen Concentration - - Weight 71.2 kg (157 lb) 06/14/2023 4:11 PM EDT Height - - Body Mass Index 24.59 06/01/2023 4:49 PM EST documented in this [...] Nursing Notes * Jose Hall LPN - 06/14/2023 4:11 PM EDT Chief Complaint Patient presents with Nurse Documentation Weight check documented in this encounter Plan of Treatment Upcoming Encounters Date Type Department Care Team (Late st Contact Info) Description 07/05/2023 3:15 PM EDT Nurse Only Nutrition & Weight Management, [facility] 132 [facility] [place] [address] [place] Nurse Gi Nutrition [facility] 132 [facility] [place] [address] 07/05/2023 3:45 PM EDT Imaging Radiology [facility] [address] [facility] [place] [address] [place] [address] 07/06/2023 7:00 AM EDT Office Visit Non [facility], Operating Room, [facility] [address] [place] [address] Ash Kendrick MD [address] [place] [address] 07/25/2023 4:30 PM EDT Office Visit Gynecology/Obstetric s [facility] [address] [facility] [place] [address] Tamiko Baker MD [address] [place] [address] 08/09/2023 2:00 PM EDT Office Visit Nutrition & Weight Management, [facility] [address] [facility] [place] [address] Joan Bright PA-C [address] [place] [address] 10/05/2023 1:30 PM EDT Office Visit Dermatology [facility] [address] [place] [address] Duane Perez MD [address] [place] [address] 10/25/2023 2:00 PM EDT Office Visit General Internal Medicine [facility] [address] [place] [address] Steffi Zamudio MD 200 [facility] [place] [address] 03/07/2024 11:00 AM EST Telemedicine Hematology Oncology [facility] [address] [place] [address] Malignancy, Multidisciplinary Clinic High Risk Gi [address] [place], [place] [address] 05/16/2024 1:30 PM EST Office Visit Dermatology [facility] [address] [place] [address] Duane Perez MD 200 [facility] [place], [place] [address] Scheduled Procedures Name Priority Associated Diagnoses Date/Ti me COLONOSCOPY FLEXIBLE PROXIMAL DIAGNOSTIC Recall PMS2-related Jackson syndrome (HNPCC4) ESOPHAGOGASTRODUODENOSCOPY ( EGD), FLEXIBLE, TRANSORAL, DIAGNOSTIC Recall PMS2-related Jackson syndrome (HNPCC4) Health Maintenance Due Date Last Done Comments Hepatitis B (1 of 3 - 19+ 3-dose series) 11/28/1999 HPV/Co-Test 2010 COVID-19 Vaccine (2022-24 season) 2022 Influenza Vaccine (FLU shot) (#1) [...] and were consensually agreed upon. Care Teams Occupational Health Coordinator Relationship Specialty Start Date End Date Steffi Zamudio MD 200 [place] [address] PCP - General Internal Medicine 05/04/11 documented as of this encounter
--- OUTSIDE RECORDS SUMMARY | 2023-07-06 23:12 | External Medical Summary | Summary of Care ---
Author Name Unknown Organization [facility] Address [address] [place] [address] Phone [phone] Care Team Providers Care Product Scientist Name Role Phone Steffi Zamudio MD Primary Care Provider [phone] Encounter Details Date Type Department Care Team (Late st Contact Info) Description 06/17/2023 Telephone Nutrition & Weight Management, [facility] [address] [place] [address] Joan Bright PA-C [address] [employer] [place] [address] Allergies Active Allergy Reactions Criticality Noted Date Comments Adhesive Tape Rash 03/23/2021 Band-aides -rash Gluten Rash 07/12/2012 Celiac disease documented as of this encounter (statuses as of 06/17/2023) Medications Medication Sig Dispensed Refills Start Date [...] 1,000 mcgIndications:Intestinal postoperative nonabsorption 1000 mcg IM [id number] 06/07/2023 08/01/19 25 Active documented as of this encounter (statuses as of 06/17/2023) Active Problems Problem Noted Date Diagnosed Date Class 1 obesity due to excess calories in adult 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 Overview: Genetic Testing Completed 08/30/2022: Test Result: POSITIVE Gene: PMS2 Variant: Deletion (Exons 12-14) ClinVarID: None This result is consistent with Jackson syndrome Test Ordered: Multi-Cancer Panel at [facility] (84 genes) Genes Included: AIP, ALK, APC, PATTY, AXIN2, BAP1, BARD1, BLM, BMPR1A, BRCA1, BRCA2, BRIP1, CASR, CDC73, CDH1, CDK4, CDKN1B, CDKN1C, CDKN2A (p14ARF), CDKN2A ([id number]), CEBPA, CHEK2, CTNNA1, DICER1, DIS3L2, EGFR, EPCAM, FH, FLCN, GATA2, GPC3, GREM1, HOXB13, HRAS, KIT, MAX, MEN1, MET, MITF, MLH1, MSH2, MSH3, MSH6, MUTYH, NBN, NF1, NF2, NTHL1, PALB2, PDGFRA, PHOX2B, PMS2, POLD1, POLE, POT1, SKEGU6K, PTCH1, PTEN, RAD50, RAD51C, RAD51D, RB1, RECQL4, RET, RUNX1, SDHA, SDHAF2, SDHB, SDHC, SDHD, SMAD4, SMARCA4, SMARCB1, SMARCE1, STK11, SUFU, TERC, TERT, VUWQ085, TP53, TSC1, TSC2, VHL, WRN, WT1 Status [...] as of this encounter (statuses as of 06/17/2023) Resolved Problems Problem Noted Date Diagnosed Date [...] MFM consult Pt planning repeat c/s at [facility] 1. For patients with previous myomectomy involving [...] delivery at 36-37 weeks without amniocentesis per [employer]. Every effort [...] history of myomectomy. Scheduled for 06/25/15 at [facility] History of prior w ith short cervix, [...] -completed and normal Urine culture contaminated at B, repeat next visit 04/26/2015 Tdap Vaccine administered [...] indicate that she had a previous infection. [facility] EFW = 1487 01/10 (<3%) Reviewed [...] as of this encounter (statuses as of 06/17/2023) Immunizations Name Administration Dates Next Due Pneumococcal [...] encounter Miscellaneous Notes * Telephone Encounter - Joan Bright PA-C [...] EDT Nurse Only Nutrition & Weight Management, [facility] [address] [address] [place], Nurse Gi Nutrition [facility] [address] [address] 07/05/2023 3:45 PM EDT Imaging Radiology [facility] [address] [place] [place] [address] 07/06/2023 7:00 AM EDT Office Visit Non [facility], Operating Room, [place] [address] [place] [address] Ash Kendrick MD [address] [place] [address] 07/25/2023 4:30 PM EDT Office [facility] [address] [place] [address] Tamiko Baker MD [address] [facility] [place] [address] 08/09/2023 2:00 PM EDT Office Visit Nutrition & Weight Management, [facility] [address] [place] [address] Joan Bright PA-C [facility] [place] [address] 10/05/2023 1:30 PM EDT Office Visit Dermatology [facility] [address] [facility] [place] [address] Duane Perez MD [address] [facility] [place] [address] 10/25/2023 2:00 PM EDT Office Visit General Internal Medicine [facility] [address] [facility] [place] [address] Steffi Zamudio MD 200 [facility] [place] [address] 03/07/2024 11:00 AM EST Telemedicine Hematology Oncology [facility] [address] [place] [address] Malignancy, Multidisciplinary Clinic High Risk Gi [address] [place] [address] 05/16/2024 1:30 PM EST Office Visit Dermatology [facility] [address] [facility] [place] [address] Duane Perez MD [address] [facility] [place] [address] Scheduled Orders Name Type Priority Associated Diagnoses [...] and were consensually agreed upon. Care Teams Product Scientist Relationship Specialty Start Date End Date Steffi Zamudio MD 200 [place] [address] PCP - General Internal Medicine 05/04/11 documented as of this encounter
--- OUTSIDE RECORDS SUMMARY | 2023-07-06 23:12 | External Medical Summary | Summary of Care ---
Author Name Unknown Organization [facility] Address [address] [place] [address] Phone [phone] Care Team Providers Care Emergency Spill Response Technician Name Role Phone Steffi Zamudio MD Primary Care Provider [phone] Reason for Referral * Evaluate & Treat - Unlimited Visits (Within 10 days (routine)) - Authorized Specialty Diagnoses / Procedures Referred By Galilea dominguez Referred To Contact Gynecologic Oncology / Gynecology Oncology Diagnoses PMS2-related Jackson syndrome (HNPCC4) Tamiko Baker MD [address] [place] [address] Referral ID Status Reason Start Date Expiration Date Visits Requested Visits Authorized [id number] Authorized Specialty Services Required 06/11/2023 999 999 Question Answer Referral Priority Within 10 days (routine) Where should this appointment be scheduled? Nik Comments 42 yo with a multi-fibroid uterus. 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 Patient was scheduled for a hysterectomy and hernia repair on 06/08/2023 in [place]. Surgery was cancelled secondary to General Surgery no longer being available for the hernia repair. Patient would like to discuss (consultation) with [facility] about the diagnosis and implications for removing or keeping her ovaries. Encounter Details Date Type Department Care Team (Late st Contact Info) Description 06/08/2023 Telephone Gynecology/Obstetrics, [place] [place] [address] Tamiko Baker MD [address] [employer] [place] [phone] Allergies Active Allergy Reactions Criticality Noted Date [...] 1,000 mcgIndications:Intestinal postoperative nonabsorption 1000 mcg IM [id number] 06/07/2023 08/01/19 25 Active documented as of this encounter (statuses as of 06/13/2023) Active Problems Problem Noted Date Diagnosed Date Class 1 obesity due to excess calories in adult 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 Overview: Genetic Testing Completed 08/30/2022: Test Result: POSITIVE Gene: PMS2 Variant: Deletion (Exons 12-14) ClinVarID: None This result is consistent with Jackson syndrome Test Ordered: Multi-Cancer Panel at [facility] (84 genes) Genes Included: AIP, ALK, APC, PATTY, AXIN2, BAP1, BARD1, BLM, BMPR1A, BRCA1, BRCA2, BRIP1, CASR, CDC73, CDH1, CDK4, CDKN1B, CDKN1C, CDKN2A (p14ARF), CDKN2A (o91SGF9b), CEBPA, CHEK2, CTNNA1, DICER1, DIS3L2, EGFR, EPCAM, FH, FLCN, GATA2, GPC3, GREM1, HOXB13, HRAS, KIT, MAX, MEN1, MET, MITF, MLH1, MSH2, MSH3, MSH6, MUTYH, NBN, NF1, NF2, NTHL1, PALB2, PDGFRA, PHOX2B, PMS2, POLD1, POLE, POT1, QKIBS9X, PTCH1, PTEN, RAD50, RAD51C, RAD51D, RB1, RECQL4, RET, RUNX1, SDHA, SDHAF2, SDHB, SDHC, SDHD, SMAD4, SMARCA4, SMARCB1, SMARCE1, STK11, SUFU, TERC, TERT, [id number], TP53, TSC1, TSC2, VHL, WRN, WT1 Status [...] MFM consult Pt planning repeat c/s at [facility] 1. For patients with previous myomectomy involving [...] delivery at 36-37 weeks without amniocentesis per [employer]. Every effort [...] history of myomectomy. Scheduled for 06/25/15 at [facility] History of prior w ith short cervix, [...] 06/11/2023 1:57 PM EDT Will refer to [facility]. Please also ask Patient if she [...] or not. She would like referral to medical assistant ob gyn onc if this is what would be needed to discuss with them and ask some qu estions. * Telephone Encounter - Tamiko Baker MD - 06/11/2023 7:49 AM EDT Patient was discussed with [facility] Oncologist due to her Jackson Syndrome. Patient would need a referral if she would like to further discuss. Please let me know what Patient desires. Thanks, Dr. Baker * Telephone Encounter - Sugey Alvarez, RN - 06/08/2023 1:37 PM EDT T/C from pt stating that she was seen in office for surgical consult. Provider was consulting with another physician in [place] regarding whether pt should keep her ovaries or not. Pt requesting name of physician that was being consulted as she would like to reach out with further questions. Advised pt that she would most likely need to schedule an appt with the provider in [place]. Dr. Baker, please advise. Carlos Eduardo's pt. documented in this encounter Plan of Treatment Upcoming Encounters Date Type Department Care Team (Late st Contact Info) Description 07/05/2023 3:15 PM EDT Nurse Only Nutrition & Weight Management, [facility] [address] [address] ConnorsNurse alice Gi Nutrition [facility] [address] [place] [address] 07/05/2023 3:45 PM EDT Imaging Radiology [facility] [address] [place] [address] 07/06/2023 7:00 AM EDT Office Visit Non [facility], Operating Room, [facility] [address] [place] [address] Ash Kendrick MD [address] [place] [address] 07/25/2023 4:30 PM EDT Office Visit Gynecology/Obstetric s [facility] [address] [place] [address] Tamiko Baker MD [address] [place] [address] 08/09/2023 2:00 PM EDT Office Visit Nutrition & Weight Management, [facility] [address] [place] [address] Joan Bright PA-C [address] [place] [address] 10/05/2023 1:30 PM EDT Office Visit Dermatology [facility] [place] [address] Duane Perez MD 200 [facility] [place] [address] 10/25/2023 2:00 PM EDT Office Visit General Internal Medicine [facility] [place] [address] [facility] [place] [address] Steffi Zamudio MD 200 [facility] [place] [address] 03/07/2024 11:00 AM EST Telemedicine Hematology Oncology [facility] [address] [place] [address] Malignancy, Multidisciplinary Clinic High Risk Gi [address] [place] [address] 05/16/2024 1:30 PM EST Office Visit Dermatology [facility] [place] [address] [facility] [place] [address] Duane Perez MD 200 [facility] [place] [address] Scheduled Procedures Name Priority Associated Diagnoses Date/Ti me COLONOSCOPY FLEXIBLE PROXIMAL DIAGNOSTIC Recall PMS2-related Jackson syndrome (HNPCC4) ESOPHAGOGASTRODUODENOSCOPY ( EGD), FLEXIBLE, TRANSORAL, DIAGNOSTIC Recall PMS2-related Jackson syndrome (HNPCC4) Scheduled Referrals Name Type Priority Associated Diagnoses Orde r Schedule DRAFTER ELECTRICAL/ONC REFERRAL OP Referral Within 10 da ys [...] and were consensually agreed upon. Care Teams Emergency Spill Response Technician Relationship Specialty Start Date End Date Steffi Zamudio MD 200 [place] [address] PCP - General Internal Medicine 05/04/11 documented as of this encounter
--- OUTSIDE RECORDS SUMMARY | 2023-07-06 23:12 | External Medical Summary | Summary of Care ---
Author Name Unknown Organization [facility] Address [address] [place] [address] Phone [phone] Care Team Providers Care Senior Peoplesoft Developer Name Role Phone Steffi Jimenez MD Primary Care Provider [phone] Reason for Visit * Reason Comments eRx-Medication Refill Encounter Details Date Type Department Care Team (Late st Contact Info) Description 06/11/2023 Refill General Internal Medicine [facility] [place] Choudhary [address] [place] [phone] Steffi Jimenez MD [address] [place] [phone] Status following gastric banding surgery for weight loss; Iron deficiency anemia secondary to inadequate dietary iron intake Allergies Active Allergy Reactions Criticality Noted Date Comments Adhesive Tape Rash 03/23/2021 Band-aides -rash Gluten Rash 07/12/2012 Celiac disease documented as of this encounter (statuses as of 06/12/2023) Medications Medication Sig Dispensed Refills Start Date [...] once daily 90 Tablet 3 06/12/2023 Active Iron 325 (65 Fe) MG Oral [...] 1,000 mcgIndications:Intestinal postoperative nonabsorption 1000 mcg IM [id number] 06/07/2023 08/01/19 25 Active documented as of this encounter (statuses as of 06/12/2023) Active Problems Problem Noted Date Diagnosed Date Class 1 obesity due to excess calories in adult 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 Overview: Genetic Testing Completed 08/30/2022: Test Result: POSITIVE Gene: PMS2 Variant: Deletion (Exons 12-14) ClinVarID: None This result is consistent with Jackson syndrome Test Ordered: Multi-Cancer Panel at [facility] (84 genes) Genes Included: AIP, ALK, APC, PATTY, AXIN2, BAP1, BARD1, BLM, BMPR1A, BRCA1, BRCA2, BRIP1, CASR, CDC73, CDH1, CDK4, CDKN1B, CDKN1C, CDKN2A (p14ARF), CDKN2A ([id number]), CEBPA, CHEK2, CTNNA1, DICER1, DIS3L2, EGFR, EPCAM, FH, FLCN, GATA2, GPC3, GREM1, HOXB13, HRAS, KIT, MAX, MEN1, MET, MITF, MLH1, MSH2, MSH3, MSH6, MUTYH, NBN, NF1, NF2, NTHL1, PALB2, PDGFRA, PHOX2B, PMS2, POLD1, POLE, POT1, PARDW6O, PTCH1, PTEN, RAD50, RAD51C, RAD51D, RB1, RECQL4, RET, RUNX1, SDHA, SDHAF2, SDHB, SDHC, SDHD, SMAD4, SMARCA4, SMARCB1, SMARCE1, STK11, SUFU, TERC, TERT, [id number], TP53, TSC1, TSC2, VHL, WRN, WT1 Status [...] as of this encounter (statuses as of 06/12/2023) Resolved Problems Problem Noted Date Diagnosed Date [...] MFM consult Pt planning repeat c/s at [facility] 1. For patients with previous myomectomy involving [...] delivery at 36-37 weeks without amniocentesis per [employer]. Every effort [...] history of myomectomy. Scheduled for 06/25/15 at [facility] History of prior w ith short cervix, [...] as of this encounter (statuses as of 06/12/2023) Immunizations Name Administration Dates Next Due Pneumococcal [...] encounter Miscellaneous Notes * Telephone Encounter - Jorge Treadwell [facility] - 06/12/2023 3:08 PM EDTSigned Prescriptions: Disp Refills Iron 325 (65 Fe) MG Oral Tablet 90 Tab*3 Sig: Take 1 tablet by mouth once dailyAuthorizing Provider: Ector JIMENEZ User: JORGE TREADWELL documented in this encounter Plan of Treatment Upcoming Encounters Date Type Department Care Team (Late st Contact Info) Description 07/05/2023 3:15 PM EDT Nurse Only Nutrition & Weight Management, [facility] [address] [facility] [place] [address] Nurse Alma Connors Nutrition [facility] 132 [facility] [place] [address] 07/05/2023 3:45 PM EDT Imaging Radiology [facility]st [facility] [place] [facility] [place] [address] 07/06/2023 7:00 AM EDT Office Visit Non [facility], Operating Room, [facility] [address] [facility] [place] [address] Ash Kendrick MD [address] [place] [address] 07/25/2023 4:30 PM EDT Office Visit Gynecology/Obstetric s [facility] [address] [facility] [place] [address] Tamiko Baker MD [address] [place] [address] 08/09/2023 2:00 PM EDT Office Visit Nutrition & Weight Management, [facility] 132 [facility] [place] [address] Joan Bright PA-C [address] [place] [address] 10/05/2023 1:30 PM EDT Office Visit Dermatology [facility] [address] [facility] [place] [address] Duane Perez MD 200 [facility] [place] [address] 10/25/2023 2:00 PM EDT Office Visit General Internal Medicine [facility] [address] [facility] [place], [place] [address] Steffi Jimenez MD [address] [facility] [place] [address] 03/07/2024 11:00 AM EST Telemedicine Hematology Oncology [facility] [address] [place] [address] Malignancy, Multidisciplinary Clinic High Risk Gi [address] [place] [address] 05/16/2024 1:30 PM EST Office Visit Dermatology [place] [address] [facility] [place] [address] Duane Perez MD 200 [facility] [place] [address] Scheduled Procedures Name Priority Associated Diagnoses Date/Ti [...] as of this encounter Visit Diagnoses Diagnosis Status following gastric banding surgery for weight loss Bariatric surgery status Iron deficiency anemia secondary to inadequate dietary iron intake documented in this encounter Advance Directives Latest [...] and were consensually agreed upon. Care Teams Senior Peoplesoft Developer Relationship Specialty Start Date End Date Steffi Jimenez MD [address] [place] [address] PCP - General Internal Medicine 05/04/11 documented as of this encounter
--- OUTSIDE RECORDS SUMMARY | 2023-07-06 23:13 | External Medical Summary ---
Author Name Unknown Address Unknown Organization K01:[facility] [address] [place] [address] Laboratory Report Ordering Provider Test Date Status LUKE MATAMOROS 06/07/2023 16:40:01 Final Observation Date Value Abnormality Reference (Units ) Status Vitamin B12 06/07/2023 16:40:01 [phone] (pg/mL) Final Performing Location LAB[facility]ATORY [facility] - [address] [place] [address]
--- OUTSIDE RECORDS SUMMARY | 2023-07-06 23:13 | External Medical Summary ---
Author Name Unknown Address Unknown Organization : Laboratory Report Ordering Provider Test Date Status LUKE MATAMOROS 06/07/2023 16:40:01 Final Observation Date Value Abnormality Reference (Units ) Status Thiamine [Moles/volume] in Blood 06/07/2023 16:40:01 82 78-185 (nmol/L) Final Vitamin supplementation with in 24 hours prior to
blood draw may affect the accuracy of the results.
This test was developed and its analytical performance
characteristics have been determined by [facility] [place], [place]. It has
not been cleared or approved by the U.S. Food and Drug
Administration. This assay has been validated pursuant
to the CLIA regulations and is used for clinical
purposes.

Test Performed at:
[facility]
[address] [facility] [place] [address]
Paras Yuan M.D., Ph.D.,Director of Laboratories Performing Location
--- OUTSIDE RECORDS SUMMARY | 2023-07-06 23:13 | External Medical Summary | Summary of Care ---
Author Name Unknown Organization [facility] Address [address] [place] [address] Phone [phone] Care Team Providers Care Associate Dean Of Women Name Role Phone Steffi Zamudio MD Primary Care Provider [phone] Reason for Visit * Reason Comments Follow Up Weight Management BOLD, annual Encounter Details Date Type Department Care Team (Late st Contact Info) Description 06/07/2023 3:40 PM EDT Office Visit Nutrition & Weight Management, [facility] [address] [place] [address] Joan Bright PA-C [address] [place] [phone] Intestinal postoperative nonabsorption* Allergies Active Allergy Reactions Criticality Noted Date Comments Adhesive Tape Rash 03/23/2021 Band-aides -rash Gluten Rash 07/12/2012 Celiac disease documented as of this encounter (statuses as of 06/07/2023) Medications Medication Sig Dispensed Refills Start Date End Date Status Hydroquinone 4 % External Cream Apply to brown spots on face 2x per day for 2 months 28.35 g 1 02/01/2021 Active Vitamin D 50 MCG (1999) Oral CapsuleIndicatio ns:Status following gastric banding surgery [...] TWICE DAILY 59 mL 5 04/17/2022 Active Iron 325 (65 Fe) MG Oral TabletIndication s:Status following gastric banding surgery for weight loss,Iron deficiency anemia secondary to inadequate dietary iron intake Take 1 tablet by mouth once daily 90 Tablet 2 08/16/2022 Active Dapsone 5 % External GelIndications:A cne [...] Semaglutide(0.25 or 0.5MG/DOS) 2 MG/3ML Solution Pen-injector ([employer]) Inject 0.5 mg under the skin once a week. 3 mL 0 06/07/2023 Active Cyclobenzaprine HCl 5 MG Oral Tablet (Flexeril)Indica tions:Neck pain TAKE 1 TABLET BY MOUTH TWICE DAILY NEEDED FOR MUSCLE SPASM 30 Tablet 2 08/29/2021 06/07/2023 Discontinued (Patient preference/d iscontinuati on) Ibuprofen 600 MG Oral Tablet (Motrin) Take 1 Tablet by mouth every 6 hours as needed (pain). With food. 30 Tablet 1 05/23/2023 06/07/2023 Discontinued (Patient preference/d iscontinuati on) Docusate Sodium 100 MG Oral Capsule (Colace) Take 1 Capsule by mouth in the morning and 1 Capsule before bedtime. 60 Capsule 1 05/23/2023 06/07/2023 Discontinued (Patient preference/d iscontinuati on) Simethicone 80 MG Oral Tablet Chewable (Mylicon) Take 1 Tablet by mouth every 6 hours as needed for Gas. 30 Tablet 0 05/23/2023 06/07/2023 Discontinued (Patient preference/d iscontinuati on) oxyCODONE-Acetam inophen 5-325 MG Oral Tablet (Percocet) Take 1 Tablet by mouth every 4 hours as needed for Pain, Severe. 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 Overview: Genetic Testing Completed 08/30/2022: Test Result: POSITIVE Gene: PMS2 Variant: Deletion (Exons 12-14) ClinVarID: None This result is consistent with Jackson syndrome Test Ordered: Multi-Cancer Panel at [facility] (84 genes) Genes Included: AIP, ALK, APC, PATTY, AXIN2, BAP1, BARD1, BLM, BMPR1A, BRCA1, BRCA2, BRIP1, CASR, CDC73, CDH1, CDK4, CDKN1B, CDKN1C, CDKN2A (p14ARF), CDKN2A (e14PDU3a), CEBPA, CHEK2, CTNNA1, DICER1, DIS3L2, EGFR, EPCAM, FH, FLCN, GATA2, GPC3, GREM1, HOXB13, HRAS, KIT, MAX, MEN1, MET, MITF, MLH1, MSH2, MSH3, MSH6, MUTYH, NBN, NF1, NF2, NTHL1, PALB2, PDGFRA, PHOX2B, PMS2, POLD1, POLE, POT1, WUTPK3L, PTCH1, PTEN, RAD50, RAD51C, RAD51D, RB1, RECQL4, RET, RUNX1, SDHA, SDHAF2, SDHB, SDHC, SDHD, SMAD4, SMARCA4, SMARCB1, SMARCE1, STK11, SUFU, TERC, TERT, QGTD689, TP53, TSC1, TSC2, VHL, WRN, WT1 Status [...] as of this encounter (statuses as of 06/07/2023) Resolved Problems Problem Noted Date Diagnosed Date [...] delivery at 36-37 weeks without amniocentesis per [employer]. Every effort [...] -completed and normal Urine culture contaminated at [facility], repeat next visit 04/26/2015 Tdap Vaccine administered [...] Rhogam candidate Rhogam given 04/26/2015 Ruthann Parr, RN ICD-10 update of inactive term Supervision [...] as of this encounter (statuses as of 06/07/2023) Immunizations Name Administration Dates Next Due Pneumococcal [...] Sign Reading Time Taken Comments Blood Pressure 92/60 06/07/2023 3:51 PM EDT Pulse 74 06/07/2023 3:51 PM EDT Temperature 36.7 C (98.1 F) 06/07/2023 3:51 PM ED T Respiratory Rate 18 06/07/2023 3:51 PM EDT Oxygen Saturation - - Inhaled Oxygen Concentration - - Weight 69.1 kg (152 lb 6.4 oz) 06/07/2023 3:51 P M EDT Height - - Body Mass Index 23.87 06/01/2023 4:49 PM EST documented in this [...] No 07/07/2014 documented as of this encounter Progress Notes * Joan Bright PA-C - 06/07/2023 3:40 PM EDT [facility] Post Sleeve Gastrectomy Nursing Notes: Tere Martin, RN 06/07/23 1551 Signed Chief Complaint Patient presents with Follow Up Weight Management BOLD, annual Waist circumference 33.5 inches Neck circumference 13.5 inches Referring physician: MD Parris Rodriguez Deidra is a 42 year old female who presents in follow up to the comprehensive weight management clinic. 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 Food insecurity Z59.41 Bilateral ovarian cysts N83.201, N83.202 Major depressive disorder with single episode F32.9 Status following gastric banding surgery for weight loss Z98.84 PMS2-related Jackson syndrome (HNPCC4) Z15.09 The patient is s/p laprascopic Sleeve Gastrectomy in [place] 05/25/21 - Weight at the time of the surgery 273 lbs - Today's weight: 152 lbs - Total weight loss of -121 lbs since surgery - Patient's weight has +2 since last visit on 04/11/23 Wt Readings from Last 6 Encounters: 06/07/23 69.1 kg (152 lb 6.4 oz) 06/01/23 70.9 kg (156 lb 3.2 oz) 05/23/23 71.2 kg (157 lb) 04/26/23 71.1 kg (156 lb 11.2 oz) 04/11/23 68.1 kg (150 lb 3.2 oz) 03/27/23 69 kg (152 lb 3.2 oz) 06/07/2023 -annual BOLD -in clinic -patient had requested to increase wegovy dose-- this was declined and she reported she was going to continue the 2.4mg wegovy dose anyway -she now reports she is able to eat with no issues at the 2.4mg wegovy dose but 2 months ago was not able to eat anything and was having vomiting -we did try wegovy 1mg dose but she was still losing 1/2 pound per week -recommended 0.5mg ozempic for 1-2 months and then recheck today but she has actually been taking the 2.4mg wegovy -she reports she had a 10 pound weight gain in 2 weeks 04/11/2023 -doing better Is eating more Did get wegovy 1mg dose and has been on it for the last 2 weeks -not getting in enough protein but reports she is able to eat more. -still losing 1/2 pound per week on average 03/01/2023 -still losing about 1 pound per week -having a lot of vomiting not taking vitamins due to the vomiting -- she doesn't feel that the vomiting is related to the wegovy -reports she isn't eating anything-- sometimes some cheese -doesn't tolerate protein shakes -friends tell her she needs to stop losing weight -is on wegovy 2.4mg weekly 01/25/2023 -ordered calcium and chewable MVI from [facility]ariat[facility] -not tolerating the bariatric advantage MVI -plan to switch to generic women's one a day one twice daily or try the bariatric advantage capsuleand open it and put the vitamin in pudding or jello -if taking the MVI-- don't take the zinc --zinc had been low but not on MVI at the time -continue iron -steady weight loss but poor PO intake 01/10/23 -routine dietary return -Wegovy 2.4 mg -+ Lunch Syndrome -Feeling very tired 09/12/22 -on Wegovy 1.0mg -tolerating well -meals are small 07/11/22 -on Wegovy 0.5mg -tolerating well 05/25/2022 -11 months post op -weight loss has slowed down quite a bit -interested in Wegovy 02/09/22 -RD for 8 month post op Current recommended meal plan: Stage 4: Describes typical diet history/24 hr recall Patient did not fill out diet sheet because she reports she just doesn't eat Review of Systems: Review of Systems Gastrointestinal: Negative for abdominal pain, nausea and vomiting. Psychosocial adjustment: Yes, having issues with stress management and relationships doing ok but noticing symptoms have been a little worse lately Alcohol: None Tobacco Use: No Drug Use: No Compliance with meal plan: no Taking supplements as ordered for each of the following: Not taking any vitamins due to vomiting MVI-- trying to find one she can tolerate Calcium-- not tolerating bariatric advantage-- did okay with viactive but that is calcium carbonate Vitamin D--- doesn't need extra if she is taking the MVI Zinc-- low because she was not on the MVI-- doesn't need extra zinc if she is taking her MVI B12- continue Iron-- continue; she may get the iron she needs just from the MVI if she can find one she tolerates. Can trial off iron and recheck labs in 3 months Current diet: Breakfast: scrambled eggs 1-2, cheese, bagel with cream cheese, oatmeal Snack: Lunch: rice, shrimp, chicken, steak tips Snack: Dinner: rice, shrimp, chicken, steak tips Snack: Drinks: not getting a lot of water Review of patient's allergies indicates: Allergen Reactions Adhesive Tape Rash Band-aides -rash Gluten Rash Celiac disease Current Outpatient Medications Medication Sig Dispense Refill Hydroquinone 4 % External Cream Apply to brown spots on face 2x per day for 2 months 28.35 g 1 Vitamin D 50 MCG (2000 UT) Oral Capsule Take by mouth 2,000 Units in the morning. LORazepam 0.5 MG Oral Tablet (Ativan) Take by mouth 1 Tablet 2 times a day as needed for Anxiety. 20 Tablet 0 Adapalene 0.1 % External Gel (Differin) Apply topically to affected area at bedtime . Apply to faceand chest and thighs 90 g 11 metroNIDAZOLE 0.75 % External Lotion APPLY TOPICALLY TO FACE TWICE DAILY 59 mL 5 Iron 325 (65 Fe) MG Oral Tablet Take 1 tablet by mouth once daily 90 Tablet 2 Dapsone 5 % External Gel Apply to acne on face and chest 60 g 2 buPROPion HCl ER (XL) 150 MG Oral Tablet Extended Release 24 Hour (Wellbutrin XL) TAKE 1 TABLET BY MOUTH IN THE MORNING 30 Tablet 5 Acetaminophen 325 MG Oral Tablet (Tylenol) Take 2 Tablets by mouth every 6 hours as needed for Pain, Mild. 30 Tablet 1 Semaglutide(0.25 or 0.5MG/DOS) 2 MG/3ML Solution Pen-injector (Ozempic) Inject 0.5 mg under the skin once a week. 3 mL 0 No current facility-administered medications for this visit. LMP 04/30/2023 (Approximate) Physical Exam Vitals and nursing note reviewed. Constitutional: Appearance: Normal appearance. HENT: Head: Normocephalic and atraumatic. Cardiovascular: Normal rate. Pulmonary: Effort: Pulmonary effort is normal. No respiratory distress. Neurological: Mental Status: Alert and oriented to person, place, and time. Psychiatric: Mood and Affect: Mood normal. Assessment/Plan: Parris was seen today for post-op. Diagnoses and all orders for this visit: Intestinal postoperative nonabsorption Not taking any vitamins-- recommend restarting vitamins if she is able to eat now and having no vomiting Just vitamin D and iron Plan CBC PTH Copper, Serum or Plasma Zinc Vitamin B12 Comprehensive Metabolic Panel Folic Acid Vitamin A (Retinol) Vitamin B1 (Thiamine), Blood, LC/MS/MS Hemoglobin A1C Lipid Panel with Direct LDL if TG is High Semaglutide(0.25 or 0.5MG/DOS) 2 MG/3ML Solution Pen-injector (Ozempic) Obesity, Class I, BMI 30-34.9 (Primary) Intestinal post operative mal absorption Steady weight loss She reports she is now able to eat with no issue and is eating a lot more and getting in protein atthe wegovy 2.4mg dose but reported hardly eating anything in March and having vomiting. She was on wegovy 1mg dose and still losing 1/2 pound per week This was the reasoning for recommending 0.5mg dose She did not do the 0.5mg dose and took the 2.4mg dose that she had Would still recommend ozempic 0.5mg weekly dose. She reports she will just go get it somewhere elselike her friends are doing. I would recommend against that but that is up to her Discussed weight trends over time are indicative of true weight changes. 5% body weight change is weight stable. She reports she doesn't have any other doses of wegovy at home right now Will continue to have close follow up appointments Recommend she absolutely increase protein intake and PO intake overall-- she is aware of the importance of taking the vitamins She is aware of the potential for malnutrition. Consider behavioral medicine referral if really struggling with the though of increasing weight-- when currently undernourished Celiac sprue Monitor iron labs stable Major depressive disorder with single episode, in partial remission (HCC) On wellbutrin 150mg XR-- could consider immediate release if having some break through symptoms Recommend avoiding extended release medications after bariatric surgery Status post laparoscopic sleeve gastrectomy As above The patient agreed to try the plan as discussed and return in two months. They were encouraged to call or send a patient portal message in the meantime with any questions or concerns prior to their next visit. I spent a total of 41 minutes on the date of service in preparation, delivery, and documentation ofthe care provided to Parris Gay excluding any time spent in the performance of separately billed services. This included, but was not limited to, providing counseling about the benefits of weight loss, about their nutritional status, detailed explanations about calorie count, types of nutrients to choose,and composition of the meals. Motivational interview provided in order to prepare the patient to achieve future goals. Joan Bright PA-C, [facility] Nutrition and Weight Management [facility]) documented in this encounter Nursing Notes * Tere Martin, RN - 06/07/2023 3:48 PM EDT Chief Complaint Patient presents with Follow Up Weight Management BOLD, annual Waist circumference 33.5 inches Neck circumference 13.5 inches documented in this encounter Plan of Treatment Upcoming Encounters Date Type Department Care Team (Late st Contact Info) Description 06/07/2023 4:50 PM EDT Laboratory Laboratory, [address] [place] [phone] [facility] [address] [place] [address] Intestinal postoperative nonabsorption 07/05/2023 3:15 PM EDT Nurse Only Nutrition & Weight Management, [facility] [address] [place] [address] [facility], Nurse Gi Nutrition [facility] [address] [facility] [place] [address] 07/05/2023 3:45 PM EDT Imaging Radiology [facility] [address] [place] [address] 07/06/2023 7:00 AM EDT Office Visit Non [facility], Operating Room, [place] [address] [place] [address] Ash Kendrick MD [address] [place] [phone] 07/25/2023 4:30 PM EDT Office Visit Gynecology/Obstet rics [facility] [address] [place] [address] Tamiko Baker MD [address] [place] [address] 08/09/2023 2:00 PM EDT Office Visit Nutrition & Weight Management, [facility] [address] [place] [address] Joan Bright PA-C [address] [place] [phone] 10/05/2023 1:30 PM EDT Office Visit Dermatology [facility] [address] [facility] [place] [address] Duane Perez MD [address] [facility] [place] [address] 10/25/2023 2:00 PM EDT Office Visit General Internal Medicine [facility] [place] [address] [facility] [place] [address] Steffi Zamudio MD [address] [place] [phone] 03/07/2024 11:00 AM EST Telemedicine Hematology Oncology [facility] [address] [place] [phone] Malignancy, Multidisciplinary Clinic High Risk Gi [address], [place] [id number] 05/16/2024 1:30 PM EST Office Visit Dermatology [facility] [place] [address] [facility] [place] [address] Duane Perez MD [address] [facility] [place] [address] Pending Results Name Type Priority Associated Diagnoses Date /Time CBC Lab Routine Intestinal postoperative nonabsorption 06/07/2023 4:40 PM EDT PTH Lab Routine Intestinal postoperative nonabsorption 06/07/2023 4:40 PM EDT COPPER, SERUM OR PLASMA Lab Routine Intestinal postoperative nonabsorption 06/07/2023 4:40 PM EDT ZINC Lab Routine Intestinal postoperative nonabsorption 06/07/2023 4:40 PM EDT VITAMIN B12 Lab Routine Intestinal postoperative nonabsorption 06/07/2023 4:40 PM EDT COMPREHENSIVE METABOLIC PANEL Lab Routine Intestinal postoperative nonabsorption 06/07/2023 4:40 PM EDT FOLIC ACID Lab Routine Intestinal postoperative nonabsorption 06/07/2023 4:40 PM EDT VITAMIN A (RETINOL) Lab Routine Intestinal postoperative nonabsorption 06/07/2023 4:40 PM EDT VITAMIN B1 (THIAMINE), BLOOD, LC/MS/MS Lab Routine Intestinal postoperative nonabsorption 06/07/2023 4:40 PM EDT HEMOGLOBIN A1C Lab Routine Intestinal postoperative nonabsorption 06/07/2023 4:40 PM EDT LIPID PANEL WITH DIRECT LDL IF TG IS HIGH Lab Routine Intestinal postoperative nonabsorption 06/07/2023 4:40 PM EDT Scheduled Orders Name Type Priority Associated Diagnoses Orde r Schedule CBC Lab Routine Intestinal postoperative nonabsorption Expected: 06/07/2023 (Approximate), Expires: 12/08/2023 PTH Lab Routine Intestinal postoperative nonabsorption Expected: 06/07/2023 (Approximate), Expires: 12/08/2023 COPPER, SERUM OR PLASMA Lab Routine Intestinal postoperative nonabsorption Expected: 06/07/2023 (Approximate), Expires: 12/08/2023 ZINC Lab Routine Intestinal postoperative nonabsorption Expected: 06/07/2023 (Approximate), Expires: 12/08/2023 VITAMIN B12 Lab Routine Intestinal postoperative nonabsorption Expected: 06/07/2023 (Approximate), Expires: 12/08/2023 COMPREHENSIVE METABOLIC PANEL Lab Routine Intestinal postoperative nonabsorption Expected: 06/07/2023 (Approximate), Expires: 12/08/2023 FOLIC ACID Lab Routine Intestinal postoperative nonabsorption Expected: 06/07/2023 (Approximate), Expires: 12/08/2023 VITAMIN A (RETINOL) Lab Routine Intestinal postoperative nonabsorption Expected: 06/07/2023 (Approximate), Expires: 12/08/2023 VITAMIN B1 (THIAMINE), BLOOD, LC/MS/MS Lab Routine Intestinal postoperative nonabsorption Expected: 06/07/2023 (Approximate), Expires: 12/08/2023 HEMOGLOBIN A1C Lab Routine Intestinal postoperative nonabsorption Expected: 06/07/2023 (Approximate), Expires: 12/08/2023 LIPID PANEL WITH DIRECT LDL IF TG IS HIGH Lab Routine Intestinal postoperative nonabsorption Expected: 06/07/2023 (Approximate), Expires: 12/08/2023 Scheduled Procedures Name Priority Associated Diagnoses Date/Ti me COLONOSCOPY FLEXIBLE PROXIMAL DIAGNOSTIC Recall PMS2-related Jackson syndrome (HNPCC4) ESOPHAGOGASTRODUODENOSCOPY ( EGD), FLEXIBLE, TRANSORAL, DIAGNOSTIC Recall PMS2-related Jackson syndrome (HNPCC4) Health Maintenance Due Date Last Done Comments Hepatitis B (1 of 3 - 19+ 3-dose series) 11/28/1999 HPV/Co-Test 2010 COVID-19 Vaccine ( - 2022-24 season) 2022 Influenza Vaccine (FLU shot) (#1) 2022 02/26/2020, 01/22/2019, 01/06/2014, Additional history exists Mammogram 06/16/2023 06/15/2022, 05/25, 06/09/2021, Additional history exists Depression Screening 04/26/2024 04/26/2023 Cervical Cancer Screening 05/13/2024 Pap Smear 05/13/2024 05/13/2021, 03/27, 01/13/2015, Additional history exists DTaP,Tdap,and Td Vaccines (4 - Td or Tdap) 04/26/2025 04/26/2015, 01/21/2013, 05/04/2011 Diabetes Screening 11/04/2025 11/04/2022, 0 05/25/2022, 05/25/2022, Additional history exists Lipid Panel 05/26/2027 05/25/2022, 10/24, 09/30/2020, Additional history exists Pneumococcal Vaccine: Pediatrics (0 [...] nonabsorption- Primary Other and unspecified postsurgical nonabsorption Intestinal postoperative nonabsorption Other and unspecified postsurgical nonabsorption documented in [...] and were consensually agreed upon. Care Teams Associate Dean Of Women Relationship Specialty Start Date End Date Steffi Zamudio MD [address] [facility] [place] [address] PCP - General Internal Medicine 05/04/11 documented as of this encounter
--- OUTSIDE RECORDS SUMMARY | 2023-07-06 23:13 | External Medical Summary ---
Author Name Unknown Address Unknown Organization [id number]:LABORATORY [facility] [place] - [facility] [place] [address] Laboratory Report Ordering Provider Test Date Status LUKE MATAMOROS 06/07/2023 16:40:01 Final Observation Date Value Abnormality Reference (Units ) Status WBC, Total 06/07/2023 16:40:01 5.01 4.00-10.80 (K/uL) Final RBC 06/07/2023 16:40:01 4.27 3.85-5.15 (M/uL) Final Hemoglobin 06/07/2023 16:40:01 13.0 12.0-15.3 (g/dL) Final HCT 06/07/2023 16:40:01 39.3 36.0-45.2 (%) Final MCV 06/07/2023 16:40:01 92.0 81.5-97.5 (fL) Final MCH 06/07/2023 16:40:01 30.4 27.0-34.0 (pg) Final MCHC 06/07/2023 16:40:01 33.1 32.0-36.0 (g/dL) Final RDW 06/07/2023 16:40:01 12.4 11.5-15.5 (%) Final Platelets 06/07/2023 16:40:01 227 140-400 (K/uL) Final MPV 06/07/2023 16:40:01 10.3 6.6-11.1 (fL) Final Nucleated erythrocytes/100 leukocytes [Ratio] in Blood by Automated count 06/07/2023 16:40:01 0 <=0 (/100 WBCs) Final Performing Location LABORATORY [facility] [place] - [address] [place] [address]
--- OUTSIDE RECORDS SUMMARY | 2023-07-06 23:13 | External Medical Summary ---
Author Name Unknown Address Unknown Organization [id number]:[facility] [place] [address] [place] [address] Laboratory Report Ordering Provider Test Date Status BARBARA ROBB 06/01/2023 13:47:01 Final Observation Date Value Abnormality Reference (Units ) Status TSH 06/01/2023 13:47:01 1.60 0.27-4.20 (uIU/mL) Final Performing Location LABORATORY C - [address] [place] [address]
--- OUTSIDE RECORDS SUMMARY | 2023-07-06 23:13 | External Medical Summary ---
Author Name Unknown Address Unknown Organization : Laboratory Report Ordering Provider Test Date Status LUKE MATAMOROS 06/07/2023 16:40:01 Final Observation Date Value Abnormality Reference (Units ) Status Vitamin A, level 06/07/2023 16:40:01 28 Below low nor mal 38-98 (mcg/dL) Final Vitamin supplementation with in 24 hours prior to
blood draw may affect the accuracy of the results.
This test was developed and its analytical performance
characteristics have been determined by [employer]
[facility] [employer] [place], [place]. It has
not been cleared or approved by the U.S. Food and Drug
Administration. This assay has been validated pursuant
to the CLIA regulations and is used for clinical
purposes.

Test Performed at:
[facility]
[address] [facility]
[place] [address]
Paras Yuan M.D., Ph.D.,Director of Laboratories Performing Location
--- OUTSIDE RECORDS SUMMARY | 2023-07-06 23:13 | External Medical Summary | Summary of Care ---
Author Name Unknown Organization [facility] Address [address] [address] Phone [phone] Care Team Providers Care Brake Lining Curer Name Role Phone Steffi Zamudio MD Primary Care Provider [phone] Reason for Visit * Reason Comments Pre-Op Testing Encounter Details Date Type Department Care Team (Late st Contact Info) Description 05/23/2023 11:45 AM EST Office Visit Gynecology/Obstetrics [facility] [address] [place] [address] Tamiko Baker MD [address] [place] [address] Preop testing* Allergies Active Allergy Reactions Criticality Noted Date Comments Adhesive Tape Rash 03/23/2021 Band-aides -rash Gluten Rash 07/12/2012 Celiac disease documented as of this encounter (statuses as of 05/23/2023) Medications Medication Sig Dispensed Refills Start Date End Date Status Hydroquinone 4 % External Cream Apply to brown spots on face 2x per day for 2 months 28.35 g 1 02/01/2021 Active Vitamin D 50 MCG (1999) Oral CapsuleIndications: Status following gastric banding surgery for weight loss Take by mouth 2,000 Units in the morning. 0 06/02/2021 Active LORazepam 0.5 MG Oral Tablet (Ativan)Indications :Depression with anxiety Take by mouth 1 Tablet 2 times a day as needed for Anxiety. 20 Tablet 0 06/03/2021 Active Cyclobenzaprine HCl 5 MG Oral Tablet (Flexeril)Indicatio ns:Neck pain TAKE 1 TABLET BY MOUTH TWICE DAILY NEEDED FOR MUSCLE SPASM 30 Tablet 2 08/29/2021 Active Adapalene 0.1 % External Gel (Differin) Apply topically to affected area at bedtime . Apply to face and chest and thighs 90 g 11 10/21/2021 Active metroNIDAZOLE 0.75 % External Lotion APPLY TOPICALLY TO FACE TWICE DAILY 59 mL 5 04/17/2022 Active Iron 325 (65 Fe) MG Oral TabletIndications:S tatus following gastric banding surgery for weight loss,Iron deficiency anemia secondary to inadequate dietary iron intake Take 1 tablet by mouth once daily 90 Tablet 2 08/16/2022 Active Dapsone 5 % External GelIndications:Acne vulgaris Apply to acne on face and chest 60 g 2 04/09/2023 Active buPROPion HCl ER (XL) 150 MG Oral Tablet Extended Release 24 Hour (Wellbutrin XL)Indications:Mixe d emotional features as adjustment reaction TAKE 1 TABLET BY MOUTH IN THE MORNING 30 Tablet 5 04/14/2023 Active Acetaminophen 325 MG Oral Tablet (Tylenol) Take 2 Tablets by mouth every 6 hours as needed for Pain, Mild. 30 Tablet 1 05/23/2023 Active Ibuprofen 600 MG Oral Tablet (Motrin) Take 1 Tablet by mouth every 6 hours as needed (pain). With food. 30 Tablet 1 05/23/2023 Active Docusate Sodium 100 MG Oral Capsule (Colace) Take 1 Capsule by mouth in the morning and 1 Capsule before bedtime. 60 Capsule 1 05/23/2023 Active Simethicone 80 MG Oral Tablet Chewable (Mylicon) Take 1 Tablet by mouth every 6 hours as needed for Gas. 30 Tablet 0 05/23/2023 Active oxyCODONE-Acetamino phen 5-325 MG Oral Tablet (Percocet) Take 1 Tablet by mouth every 4 hours as needed for Pain, Severe. 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 Overview: Genetic Testing Completed 08/30/2022: Test Result: POSITIVE Gene: PMS2 Variant: Deletion (Exons 12-14) ClinVarID: None This result is consistent with Mccarthy syndrome Test Ordered: Multi-Cancer Panel at [facility] (84 genes) Genes Included: AIP, ALK, APC, PATTY, AXIN2, BAP1, BARD1, BLM, BMPR1A, BRCA1, BRCA2, BRIP1, CASR, CDC73, CDH1, CDK4, CDKN1B, CDKN1C, CDKN2A (p14ARF), CDKN2A ([id number]), CEBPA, CHEK2, CTNNA1, DICER1, DIS3L2, EGFR, EPCAM, FH, FLCN, GATA2, GPC3, GREM1, HOXB13, HRAS, KIT, MAX, MEN1, MET, MITF, MLH1, MSH2, MSH3, MSH6, MUTYH, NBN, NF1, NF2, NTHL1, PALB2, PDGFRA, PHOX2B, PMS2, POLD1, POLE, POT1, SQNHM3R, PTCH1, PTEN, RAD50, RAD51C, RAD51D, RB1, RECQL4, RET, RUNX1, SDHA, SDHAF2, SDHB, SDHC, SDHD, SMAD4, SMARCA4, SMARCB1, SMARCE1, STK11, SUFU, TERC, TERT, EKXG650, TP53, TSC1, TSC2, VHL, WRN, WT1 Status [...] as of this encounter (statuses as of 05/23/2023) Resolved Problems Problem Noted Date Diagnosed Date [...] delivery at 36-37 weeks without amniocentesis per [employer]. Every effort [...] could be arranged. Rh negative, antepartum 07/15/2012 040 09/2015 Overview: Rhogam candidate Rhogam given 04/26/2015 [...] as of this encounter (statuses as of 05/23/2023) Immunizations Name Administration Dates Next Due Pneumococcal [...] Sign Reading Time Taken Comments Blood Pressure 98/68 05/23/2023 11:54 AM EST Pulse - - Temperature - - Respiratory Rate - - Oxygen Saturation - - Inhaled Oxygen Concentration - - Weight 71.2 kg (157 lb) 05/23/2023 11:54 AM EST Height 171.5 cm (5' 7.5") 05/23/2023 11:54 AM ES T Body Mass Index 24.23 05/23/2023 11:54 AM EST documented in this encounter Functional Status [...] as of this encounter Progress Notes * Tamiko Baker MD - 05/23/2023 12:27 PM EST HISTORY & PHYSICAL EXAMINATION - Gynecology [facility] [address] [facility] [place] [address] Name: Parris Gay Location: GYNECOLOGY/OBSTETRICS [facility] Date: 05/23/2023 Time: 12:27 PM PRESENTING PROBLEM: Uterine fibroids, PMS2 related mccarthy syndrome, Hernia HPI: Parris Gay is a 42 year old female patient who presents for uterine fibroids, PMS2 relatedlynch syndrome, and hernia . 42 year old with LMP 04/30/2023 using nothing for contraception presents with uterine fibroids. At an annual exam with PCP an enlarged uterus was noted. Subsequent imaging confirmed fibroids. Patient was originally seen in Apr 2018 and treated with depo lupron. Patient used depo lupron for approximately 1 year and then discontinued. Patient seen in Apr 2020. Patient was asymptomatic and plan was to repeat imaging to re-evaluate uterus and previously reported bilateral ovarian cysts. TVUS 2020 revealed 1. Uterine myoma appears stable 2. Probable right endometrioma for which follow-up is recommended in 1 year.3. 3.9 cm simple right ovarian cyst. If asymptomatic, follow-up is not needed. 4. Left ovarian cyst is not demonstrated. Patient desired to follow up in 1 year (Aug 2021). Her lastest TVUS in July 2022 revealed 1. Interval increased in size of uterine fibroid.2. Two adjacent right ovarian hemorrhagic cysts are also increased in size since prior MR. Evaluate on follow-up examination. Since discontinuation of depo lupron, menses last 7-10 days with moderate flow. Patient states menses are tolerable. Denies pelvic pain. Denies abnormal vaginal discharge. Denies urinary or bowel symptoms. Patient had genetic testing in Nov 2022 due to h/o Mother passing away from an unknown cancer. Patient is positive for PMS2-related Mccarthy syndrome. Patient desired surgery at [facility]. Referred to Dr. Joe. Patient states appointment was cancelled and then rescheduled. She desires to now proceed with surgery in the [place] area. Patient will have hernia repaired by General Surgery. PAST MEDICAL HISTORY: Past Medical History: Diagnosis Date Celiac sprue 2011 well-controlled with diet Fibroid, uterine 2013 noted during routine OB ultrasound, has never req'd tintervention Headache(784.0) mostly as a child, rare as an adult. Called migraine then. 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 Genetic Testing Completed 08/30/2022: Test Result: POSITIVE Gene: PMS2 Variant: Deletion (Exons 12-14) ClinVarID: None This result is consistent with Mccarthy syndrome Test Ordered: Multi-Cancer Panel at [facility] (84 genes) Genes Included: AIP, ALK, APC, PATTY, AXIN2, BAP1, BARD1, BLM, BMPR1A, BRCA1, BRCA2, BRIP1, CASR, CDC73, CDH1, CDK4, CDKN1B, CDKN1C, CDKN2A (p14ARF), CDKN2A (p16 Syncope has passed out twice; both in sleep deprived, high stress situations PAST SURGICAL HISTORY: Past Surgical History: Procedure Laterality Date DELIVERY ONLY W/ 02/27/2013 DELIVERY AND CARE performed by Payal House MD at [facility]; spinal DELIVERY ONLY W/ N/A 06/25/2015 DELIVERY AND CARE performed by Mike Valencia MD at [facility] COLONOSCOPY, DIAGNOSTIC (RECTUM) 02/23/2023 COLONOSCOPY FLEXIBLE PROXIMAL DIAGNOSTIC performed by Ketan Hua MD at ENDOSCOPY [facility] DENTAL SURGERY PROCEDURE NEC 03/26/1999 no comps EGD, FLEXIBLE, DIAGNOSTIC 02/23/2023 ESOPHAGOGASTRODUODENOSCOPY (EGD), FLEXIBLE, TRANSORAL, DIAGNOSTIC performed by Ketan Hua MD at ENDOSCOPY [facility] EGD, FLEXIBLE, W/BIOPSY 06/30/2011 biopsies EXPLORATION OF ABDOMEN N/A 07/07/2014 EXPLORATORY LAPAROTOMY performed by Yuri Wiley MD at [facility] GASTRIC BAND PLACEMENT/PORT, LAPAROSCOPIC 05/26/2021 In [place] per patinet's choice INFORMATION (source of fear about GA: her mother had a very difficult time emerging from general anesthetics, and also had myasthenia gravis) LAPAROSCOPY; CHOLECYSTECTOMY 05/25/2021 in [place] LASIK SURGERY 03/26/2011 no comps MYOMECTOMY,5>OR>250G;ABDOM AP N/A 07/07/2014 EXCISION FIBROID TUMORS UTERUS ABDOMINAL APPROACH 5 OR MORE performed by Yuri Wiley MD at [facility] PARTIAL REMOVAL OF LEG BONE(S) no metal, had bone repair right leg & device removal; spinals (one felt incision, converted to GA, hallucinations afterward) REMOVE TONSILS & ADENOIDS, AGE 12+ 03/26/1990 no comps; ga FAMILY HISTORY: Family History Problem Relation Age of Onset Cancer Mother 51 adenocarcinoma of unknown primary Other (Myasthenia Gravis) Mother Diabetes Father type 2 Other (DM type 1) Sister No Past Hx Brother Heart Disorder Grandmother (Maternal) Heart Disorder Grandfather (Maternal) Other (unsure) Grandmother (Paternal) Heart Disorder Grandfather (Paternal) 68 Melanoma Uncle (Maternal) 65 SOCIAL HISTORY: Social History Socioeconomic History Marital status: Spouse name: Lloyd Gay Number of children: 1 Years of education: 12 Highest education level: Not on file Occupational History 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 Tobacco Use Smoking status: Never Passive exposure: Never Smokeless tobacco: Never Vaping Use Vaping Use: Never used Substance and Sexual Activity Alcohol use: No Comment: denies during Drug use: No Comment: denies Sexual activity: Yes Partners: Male Other Topics Concern Not on file Social History Narrative Not on file Social Determinants of Health Financial Resource Strain: Not on file Food Insecurity: Food Insecurity Present (05/20/2020) Hunger Vital Sign Worried About Running Out of Food in the Last Year: Sometimes true Ran Out of Food in the Last Year: Sometimes true Transportation Needs: Not on file Physical Activity: Not on file Stress: Not on file Social Connections: Not on file Intimate Partner Violence: Not on file Housing Stability: Not on file CURRENT MEDICATIONS: Current Outpatient Medications Medication Sig Dispense Refill [...] as needed for Anxiety. 20 Tablet 0 Cyclobenzaprine HCl 5 MG Oral Tablet (Flexeril) TAKE 1 TABLET BY MOUTH TWICE DAILY NEEDED FOR MUSCLE SPASM 30 Tablet 2 Adapalene 0.1 % External Gel (Differin) Apply [...] MOUTH IN THE MORNING 30 Tablet 5 Current Facility-Administered Medications Medication Dose Route Frequency Provider Last Rate Last Admin vitamin b-12 (Cyanocobalamin) inj 1,000 mcg 1,000 mcg Intramuscular Q8 Weeks Steffi Zamudio MD 1,000 mcg at 04/11/23 1312 ALLERGIES: Review of patient's allergies indicates: Allergen Reactions Adhesive Tape Rash Band-aides -rash Gluten Rash Celiac disease IMAGING EXAM: US PELVIS TRANS-VAGINAL NON-OB - 08/10/2022 HISTORY: Uterine fibroids TECHNIQUE: Transvaginal and transabdominal pelvic ultrasound was performed COMPARISON: MR 12/16/2021, ultrasound 11/11/2021 FINDINGS: LMP: 07/15/2022 UTERUS: 16.8 cmx7.4 cmx13.2 cm, enlarged and bulbous appearance. MYOMETRIUM: Heterogeneous. Left lateral fibroid currently measures 9.4 x 7.9 x 11.1 cm, previously 7.4 x 7.1 x 7.4 cm. ENDOMETRIUM: 9.0 mm in thickness, within normal limits. RIGHT OVARY: 7.4 cmx4.4 cmx6.8 cm, 116.3 ml There are two adjacent cysts with internal echoes measuring 5.2 x 4.1 x 3.6 cm and 4.0 x 3.1 x 3.6 cm likely representing hemorrhagic cysts. Mural thickening may represent mural thrombus. When compared to MR, the cysts are increased in size. LEFT OVARY: 3.3 cmx1.8 cm x 2.8 cm, 8.7 ml Unremarkable MISCELLANEOUS: No significant free fluid. IMPRESSION IMPRESSION: 1. Interval increased in size of uterine fibroid. 2. Two adjacent right ovarian hemorrhagic cysts are also increased in size since prior MR. Evaluateon follow-up examination. REVIEW OF SYSTEMS: Constitutional: (-) fever chills sweats or weight loss Cardiovascular: (-) negative: no chest pain, dyspnea, syncope, or palpitations Pulmonary: (-) negative: no cough, wheezing, or shortness of breath Abdominal/GI: (-) negative: no pain, heartburn, dysphagia, bleeding, change in bowel habits, nauseaor vomiting Female : (-) negative: no dysuria, pelvic pain, irregular menses, or vaginal discharge PHYSICAL EXMINATION: Most Recent Vital Signs: BP 98/68 | Ht 1.715 m (5' 7.5") | Wt 71.2 kg (157 lb) | LMP 04/30/2023 (Approximate) | BMI 24.23 kg/m | BSA 1.84 m Constitutional: no acute distress Lungs: normal Heart: normal Abdomen: abdomen soft, non-tender, normal bowel sounds, and palpable fibroid uterus IMPRESSION: 42 yo with an enlarged fibroid uterus and right ovarian cyst. Recent genetic studies are positive for mccarthy syndrome. Intramural leiomyoma of uterus: Patient is now willing to have surgery in [place]. Normal CA 125. Recommend endometrial biopsy. PMS2-related Mccarthy syndrome (HNPCC4) Management: GI cancers: Colonoscopy every 1-3 years beginning at age 30-35 (or 2-5 yrs prior to the earliest colon cancer in family) Consider upper GI endoscopy (with visualization of the duodenum) beginning at age 30-40. Include random biopsy for H. Pylori testing on baseline EGD. Repeat every 2-4 years. If family history of pancreatic cancer, consider MRI/MRCP and /or EUS at age 50 (or 10 years prior to the earliest pancreatic cancer in family). PST MANAGER Cancers: Consider endometrial biopsy at 30-35 and repeat every 1-2 years. Consider hysterectomy after family planning is complete. Consider bilateral salpingo-oophorectomy or transvaginal ultrasound and serum CA-125. Consider hormonal contraceptives. Urothelial Cancers: Consider annual urinalysis beginning at age 30-35. Skin Cancer: Consider full-body skin exam with field crop grower every 1-2 years. Brain Cancer: Annual physical and neurological exam. Prostate Cancer: Consider annual PSA with ROSAURA beginning at 40; base individual risks on gene and family history of prostate cancer. PLAN: Robotic assisted total laparoscopic hysterectomy, bilateral salpingo- oophorectomy, pelvic washings, possible mini-laparotomy, and cystoscopy The R/B of surgery were discussed w/ the pt to include, but not limited to bleeding/transfusion, infection, wound breakdown/poor healing, damage to organs in abd/pelvis w/ possible need for further surgical repair, need for abdominal incision to complete procedure, blood clot, PE/AZ/stroke. Additionally, risks/benefits of ovarian preservation were discussed to include 1/70 lifetime risk of ovarian cancer and 5-10% risk for need of future surgery for ovarian pathology. Pt understands these risksand consents to surgery. Post-operative medications previously prescribed. Tamiko Baker MD 05/23/2023 12:27 PM Gynecology/Obstetrics [address] [place] [address] documented in this encounter Nursing Notes * Barbara Pro LPN - 05/23/2023 11:54 AM EST Here for pre op documented in this encounter Plan of Treatment Upcoming Encounters Date Type Department Care Team (Late st Contact Info) Description 06/01/2023 4:45 PM EST Office Visit Gynecology/Obstetr ics [facility] [address] [place] [address] Alpa Mccormack PA-C [address] [place] [address] 06/07/2023 3:40 PM EDT Office Visit Nutrition & Weight Management, [facility] [address] [place] [address] Joan Bright PA-C [address] [place] [address] 06/08/2023 7:00 AM EDT Office Visit Non [facility], Operating Room, [place] [address] [facility] [place] [address] Ash Kendrick MD [address] [place] [address] 06/20/2023 4:30 PM EDT Office Visit Gynecology/Obstetr [facility] [address] [place] [address] Tamiko Baker MD [address] [place] [address] 07/05/2023 3:45 PM EDT Imaging Radiology [facility] 1st [facility] [address] [place] [address] 07/12/2023 3:10 PM EDT Nutrition Services Nutrition & Weight Management, [facility] [address] [facility] [place] [address] Kinsey Cage RDN [address] [facility] [place] [address] 10/05/2023 1:30 PM EDT Office Visit Dermatology [facility] [address] [place] [address] Duane Perez MD [address] [facility] [place] [address] 10/25/2023 2:00 PM EDT Office Visit General Internal Medicine [facility] [address] [place] [address] [address] Steffi Zamudio MD [address] [facility] [place] [address] 03/07/2024 11:00 AM EST Telemedicine Hematology Oncology [facility] [address] [place] [address] Malignancy, Multidisciplinary Clinic [facility] [address], [place] [id number] 05/16/2024 1:30 PM EST Office Visit Dermatology [facility] [address] [place] [address] Duane Perez MD [address] [facility] [place] [address] Scheduled Procedures Name Priority Associated Diagnoses Date/Ti me COLONOSCOPY FLEXIBLE PROXIMAL DIAGNOSTIC Recall PMS2-related Mccarthy syndrome (HNPCC4) ESOPHAGOGASTRODUODENOSCOPY ( EGD), FLEXIBLE, TRANSORAL, DIAGNOSTIC Recall PMS2-related Mccarthy syndrome (HNPCC4) Health Maintenance Due Date Last Done Comments Hepatitis C Screening 1998 Hepatitis B (1 of 3 - 19+ [...] as of this encounter Visit Diagnoses Diagnosis Preop testing- Primary Preoperative examination, unspecified documented in this encounter Advance Directives Latest [...] and were consensually agreed upon. Care Teams Brake Lining Curer Relationship Specialty Start Date End Date Steffi Zamudio MD [address] [facility] [place], [place] [id number] PCP - General Internal Medicine 05/04/11 documented as of this encounter
--- OUTSIDE RECORDS SUMMARY | 2023-07-06 23:13 | External Medical Summary ---
Author Name Unknown Address Unknown Organization [id number]:LABORATORY [facility] [place] [place] - [address] [place] [address] Laboratory Report Ordering Provider Test Date Status LKUE MATAMOROS 06/01/2023 13:47:01 Final Observation Date Value Abnormality Reference (Units ) Status Ferritin 06/01/2023 13:47:01 34 13-150 (ng /mL) Final Postmenopausal women have hi gher ferritin levels than pre-menopausal women. The above reference interval is based on pre-menopausal women. Performing Location LABORATORY [facility] - [address] [place] [address]
--- OUTSIDE RECORDS SUMMARY | 2023-07-06 23:13 | External Medical Summary ---
Author Name Unknown Address Unknown Organization [id number]:LABORATORY [place] [address] [facility] [address] [place] [address] Laboratory Report Ordering Provider Test Date Status BARBARA ROBB 06/01/2023 13:47:01 Final Observation Date Value Abnormality Reference (Units) Status Hepatitis B virus surface Ab [Units/volume] in Serum or Plasma by Immunoassay 06/01/2023 13:47:01 145.0 (mIU/mL) Final Hepatitis B virus surface Ab [Presence] in Serum by Immunoassay 06/01/2023 13:47:01 Positive Final HEPATITIS B SURFACE ANTIBODY, INTERPRETATION 06/01/2023 13:47:01 Immune to Hepatitis B Virus Final POSITIVE: >=11.5 mIU/mL
INDETERMINATE: 8.5-<11.5 mIU/mL
NEGATIVE: <8.5 mIU/mL Performing Location LABORATORY [place] [address] [place] [address]
--- OUTSIDE RECORDS SUMMARY | 2023-07-06 23:13 | External Medical Summary ---
Author Name Unknown Address Unknown Organization [id number]:LABORATORY [facility] - [address] [place] [address] Laboratory Report Ordering Provider Test Date Status LUKE MATAMOROS 06/07/2023 16:40:01 Final Observation Date Value Abnormality Reference (Units ) Status Folic Acid 06/07/2023 16:40:01 5.8 >4.5 (ng/ mL) Final Performing Location LABORATORY [facility] - [address] [place] [address]
--- OUTSIDE RECORDS SUMMARY | 2023-07-06 23:13 | External Medical Summary ---
Author Name Unknown Address Unknown Organization [id number]:LABORATORY [place] [address] - [address] [place] [address] Laboratory Report Ordering Provider Test Date Status LUKE MATAMOROS 06/01/2023 13:47:01 Final Observation Date Value Abnormality Reference (Units ) Status WBC, Total 06/01/2023 13:47:01 5.86 4.00-10.8 0 (K/uL) Final RBC 06/01/2023 13:47:01 4.20 3.85-5.15 (M/uL) Final Hemoglobin 06/01/2023 13:47:01 12.8 12.0-15.3 (g/dL) Final HCT 06/01/2023 13:47:01 37.5 36.0-45.2 (%) Final MCV 06/01/2023 13:47:01 89.3 81.5-97.5 (fL) Final MCH 06/01/2023 13:47:01 30.5 27.0-34.0 (pg) Final MCHC 06/01/2023 13:47:01 34.1 32.0-36.0 (g/dL) Final RDW 06/01/2023 13:47:01 12.2 11.5-15.5 (%) Final Platelets 06/01/2023 13:47:01 206 140-400 (K /uL) Final MPV 06/01/2023 13:47:01 9.6 6.6-11.1 ( fL) Final Performing Location LABORATORY [facility] [place] [facility] - [address] [place] [address]
--- OUTSIDE RECORDS SUMMARY | 2023-07-06 23:13 | External Medical Summary ---
Author Name Unknown Address Unknown Organization [id number]:LABORATORY [facility] - [address] [place] [address] Laboratory Report Ordering Provider Test Date Status LUKE MATAMOROS 06/07/2023 16:40:01 Final Observation Date Value Abnormality Reference (Units ) Status HbA1C 06/07/2023 16:40:01 4.6 4.0-5.6 (% ) Final The use of HbA1c to monitor glycemic status is based on normal hemoglobin and HbA composition. This test should not be used in patients with abnormal hemoglobin that affects the half life of the red blood cell or the in vivo glycation rates. Glucose, estimated average 06/07/2023 16:40:01 85 <126 (mg/dL) Final Performing Location LABORATORY [facility] - [address] [place] [address]
--- OUTSIDE RECORDS SUMMARY | 2023-07-06 23:13 | External Medical Summary ---
Author Name Unknown Address Unknown Organization [id number]:LABORATORY [facility] [place] - [address] [place] [address] Laboratory Report Ordering Provider Test Date Status BARBARA ROBB 06/01/2023 13:47:01 Final Deficient: <20 ng/mL
Ins ufficient: 20-29 ng/mL
Recommended/Optimum:30-50 ng/mL

Vitamin D intoxication is rare. If suspicious of Vitamin D toxicity, evaluation of serum Calcium and PTH is recommended. Observation Date Value Abnormality Reference (Units ) Status 25-OH Vitamin D total 06/01/2023 13:47:01 54 >19 (ng/mL) Final Performing Location LABORATORY [facility] - [address] [place] [address]
--- OUTSIDE RECORDS SUMMARY | 2023-07-06 23:13 | External Medical Summary | Summary of Care ---
Author Name Unknown Organization [facility] Address [address] [place] [address] Phone [phone] Care Team Providers Care Director Of Product Development Name Role Phone Steffi Zamudio MD Primary Care Provider [phone] Reason for Visit * Reason Comments Outpatient Testing Encounter Details Date Type Department Care Team (Late st Contact Info) Description 06/01/2023 1:50 PM EST Laboratory Laboratory, [facility] [address] [facility] 132 [place] [address] Intestinal postoperative nonabsorption; Need for hepatitis B vaccination; Celiac sprue; Encounter for HCV screening test for low risk patient; Attention deficit disorder (ADD) without hyperactivity; Memory loss Allergies Active Allergy Reactions Criticality Noted Date Comments Adhesive Tape Rash 03/23/2021 Band-aides -rash Gluten Rash 07/12/2012 Celiac disease documented as of this encounter (statuses as of 06/01/2023) Medications Medication Sig Dispensed Refills Start Date End Date Status Hydroquinone 4 % External Cream Apply to brown spots on face 2x per day for 2 months 28.35 g 1 02/01/2021 Active Vitamin D 50 MCG (1999 [place]) Oral CapsuleIndications: Status following gastric banding surgery [...] surgery for weight loss 1000 mcg IM [id number] 08/02/2021 06/04/2023 A ctive documented as of this encounter (statuses as of 06/01/2023) Active Problems Problem Noted Date Diagnosed Date 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 Overview: Genetic Testing Completed 08/30/2022: Test Result: POSITIVE Gene: PMS2 Variant: Deletion (Exons 12-14) ClinVarID: None This result is consistent with Jackson syndrome Test Ordered: Multi-Cancer Panel at [facility] (84 genes) Genes Included: AIP, ALK, APC, PATTY, AXIN2, BAP1, BARD1, BLM, BMPR1A, BRCA1, BRCA2, BRIP1, CASR, CDC73, CDH1, CDK4, CDKN1B, CDKN1C, CDKN2A (p14ARF), CDKN2A (r45EQV9p), CEBPA, CHEK2, CTNNA1, DICER1, DIS3L2, EGFR, EPCAM, FH, FLCN, GATA2, GPC3, GREM1, HOXB13, HRAS, KIT, MAX, MEN1, MET, MITF, MLH1, MSH2, MSH3, MSH6, MUTYH, NBN, NF1, NF2, NTHL1, PALB2, PDGFRA, PHOX2B, PMS2, POLD1, POLE, POT1, CJHDF0H, PTCH1, PTEN, RAD50, RAD51C, RAD51D, RB1, RECQL4, RET, RUNX1, SDHA, SDHAF2, SDHB, SDHC, SDHD, SMAD4, SMARCA4, SMARCB1, SMARCE1, STK11, SUFU, TERC, TERT, FUCV975, TP53, TSC1, TSC2, VHL, WRN, WT1 Status [...] as of this encounter (statuses as of 06/01/2023) Resolved Problems Problem Noted Date Diagnosed Date [...] MFM consult Pt [place] [facility] [place]. For patients with previous [...] delivery at 36-37 weeks without amniocentesis per [employer]. Every effort [...] history of myomectomy. Scheduled for [place] [facility] History of prior w ith [...] a previous infection. MFM EFW = 1487 / (<3%) Reviewed the need for twice weekly [...] as of this encounter (statuses as of 06/01/2023) Immunizations Name Administration Dates Next Due Pneumococcal [...] No 07/07/2014 documented as of this encounter Plan of Treatment Upcoming Encounters Date Type Department Care Team (Late st Contact Info) Description 06/01/2023 4:45 PM EST Office Visit Gynecology/Obstetr ics [facility] [address] [place] [address] Alpa Mccormack PA-C [address] [place] [address] 06/07/2023 3:40 PM EDT Office Visit Nutrition & Weight Management, [facility] [address] [place] [address] Joan Bright PA-C [address] [place] [address] 06/08/2023 7:00 AM EDT Office Visit Non [facility], Operating Room, [facility] [address] [facility] [place] [address] Ash Kendrick MD [address] [place] [address] 06/20/2023 4:30 PM EDT Office Visit Gynecology/Obstetr ics [facility] [address] [place] [address] Tamiko Baker MD [address] [place] [address] 07/05/2023 3:45 PM EDT Imaging [facility] [address] [place] [address] 07/12/2023 3:10 PM EDT Nutrition Services Nutrition & Weight Management, [facility] 132 [facility] [place] [address] Kinsey Cage RDN 132 [facility] [place] [address] 10/05/2023 1:30 PM EDT Office Visit Dermatology [facility] [place] [address] [facility] [place] [address] Duane Perez MD [address] [facility] [place] [address] 10/25/2023 2:00 PM EDT Office Visit General Internal Medicine [facility] [place] [address] Steffi Zamudio MD [address] [place] [address] 03/07/2024 11:00 AM EST Telemedicine Hematology Oncology [facility] [address] [place] [address] Malignancy, Multidisciplinary Clinic [facility] [address] [place] [address] 05/16/2024 1:30 PM EST Office Visit Dermatology [facility] [place] [address] [facility] [place] [address] Duane Perez MD [address] [place] [address] Pending Results Name Type Priority Associated Diagnoses Date /Time IRON SCREEN, INCLUDING TIBC Lab Routine Intestinal postoperative nonabsorption 06/01/2023 1:47 PM EST FERRITIN Lab Routine Intestinal postoperative nonabsorption 06/01/2023 1:47 PM EST HEPATITIS B SURFACE ANTIBODY Lab Routine Need for hepatitis B vaccination 06/01/2023 1:47 PM EST 25-HYDROXY VITAMIN D Lab Routine Celiac sprue 06/01/2023 1:47 PM EST HEPATITIS C ANTIBODY SCREEN WITH PROGRESSION TO HEPATITIS C RNA QUANTITATIVE Lab Routine Encounter for HCV screening test for low risk patient 06/01/2023 1:47 PM EST TSH WITH FREE T4 IF INDICATED Lab Routine Attention deficit disorder (ADD) without hyperactivity Memory loss 06/01/2023 1:47 PM EST RPR Lab Routine Memory loss 06/01/2023 1:47 PM EST HIV ANTIGEN & ANTIBODY SCREEN W/ CONFIRMATION Lab Routine Memory loss 06/01/2023 1:47 PM EST HEPATITIS C ANTIBODY Lab Routine Encounter for HCV screening test for low risk patient 06/01/2023 1:47 PM EST HEPATITIS C RNA ADD ON Lab Routine Encounter for HCV screening test for low risk patient 06/01/2023 1:47 PM EST Scheduled Procedures Name Priority Associated Diagnoses Date/Ti [...] Not on filedocumented as of this encounter Procedures Procedure Name Priority Date/Time Associated Diagnosis Comments DIFFERENTIAL, AUTOMATED Routine 06/01/2023 1:47 PM EST Intestinal postoperative nonabsorption CBC Routine 06/01/2023 1:47 PM EST Intestinal postoperative nonabsorption CBC Routine 06/01/2023 1:47 PM EST Intestinal postoperative nonabsorption documented in this encounter Results * (ABNORMAL) DIFFERENTIAL, AUTOMATED (06/01/2023 1:47 PM EST) WBC 5.86 4.00 - 10.80 K/uL 06/01/2023 2:02 PM EST [facility] Neutrophils % 48.6 40.0 - 75.0 % 06/01/2023 2:02 PM EST [facility] [place] [facility] [facility] Lymphocytes % 43.0(H) 18.0 - 42.0 % 06/01/2023 2:02 PM EST [facility] [place] [facility] Monocytes % 6.0 1.0 - 11.0 % 06/01/2023 2:02 PM EST [facility] [place] [facility] Eosinophils % 1.7 0.0 - 6.0 % 06/01/2023 2:02 PM EST [facility] [place] [facility] [facility] Basophils % 0.7 0.0 - 2.0 % 06/01/2023 2:02 PM EST [facility] [place] [facility] [facility] Absolute Neutrophils 2.85 1.80 - 7.70 K/uL 06/01/2023 2:02 PM EST [facility] [place] [facility] [facility] Absolute Lymphocytes 2.52 1.00 - 4.80 K/ul 06/01/2023 2:02 PM EST [facility] [place] [facility] [facility] Absolute Monocytes 0.35 0.00 - 1.10 K/uL 06/01/2023 2:02 PM EST [facility] [place] [facility] [facility] Absolute Eosinophils 0.10 0.00 - 0.70 K/uL 06/01/2023 2:02 PM EST [facility] [place] [facility] [facility] Absolute Basophils 0.04 0.00 - 0.20 K/uL 06/01/2023 2:02 PM EST [facility] [place] [facility] [facility] Blood Venous blood specimen / Unknown Venipuncture / Unknown 06/01/2023 1:47 PM EST 06/01/2023 1:47 PM EST Joan Bright PA-C LAB BLOOD [facility]A [facility] [place] [facility] [address] [place] [address] * CBC (06/01/2023 1:47 PM EST) [facility] WBC 5.86 4.00 - 10.80 K/uL 06/01/2023 2:02 PM EST [facility] [place] [facility] RBC 4.20 3.85 - 5.15 M/uL 06/01/2023 2:02 PM EST [facility] [place] [facility] HGB 12.8 12.0 - 15.3 g/dL 06/01/2023 2:02 PM EST [facility] HCT 37.5 36.0 - 45.2 % 06/01/2023 2:02 PM EST [facility] MCV 89.3 81.5 - 97.5 fL 06/01/2023 2:02 PM EST [facility]10 MCH 30.5 27.0 - 34.0 pg 06/01/2023 2:02 PM EST [facility] MCHC 34.1 32.0 - 36.0 g/dL 06/01/2023 2:02 PM EST [facility] RDW 12.2 11.5 - 15.5 % 06/01/2023 2:02 PM EST [facility]10 PLT 206 140 - 400 K/uL 06/01/2023 2:02 PM EST [facility] MPV 9.6 6.6 - 11.1 fL 06/01/2023 2:02 PM EST [facility] Blood Venous blood specimen / Unknown Venipuncture / Unknown 06/01/2023 1:47 PM EST 06/01/2023 1:47 PM EST Joan Bright PA-C [facility] Organization Address City/State/ZIP Co de Phone Number [facility]ORY [facility] [address] [facility] [place] [phone] documented in this encounter Visit Diagnoses Diagnosis Intestinal postoperative nonabsorption Other and unspecified postsurgical nonabsorption Need for hepatitis B vaccination Need for prophylactic vaccination and inoculation against viral hepatitis Celiac sprue Celiac disease Encounter for HCV screening test for low risk patient Attention deficit disorder (ADD) without hyperactivity Memory loss documented in this encounter Advance Directives Latest [...] and were consensually agreed upon. Care Teams Director Of Product Development Relationship Specialty Start Date End Date Steffi Zamudio MD [address] [place] [address], [place] [address] PCP - General Internal Medicine 05/04/11 documented as of this encounter
--- OUTSIDE RECORDS SUMMARY | 2023-07-06 23:13 | External Medical Summary ---
Author Name Unknown Address Unknown Organization [id number]:[facility]ATORY [facility] [place] [address] [place] [address] Laboratory Report Ordering Provider Test Date Status LUKE MATAMOROS 06/01/2023 13:47:01 Final Observation Date Value Abnormality Reference (Units ) Status Iron 06/01/2023 13:47:01 119 33-151 (ug /dL) Final Iron-binding capacity 06/01/2023 13:47:01 310 250-425 (ug/dL) Final Transferrin Sat % 06/01/2023 13:47:01 38 15 -55 (%) Final Performing Location [facility]ORY [facility] [place] [address] [place] [address]
--- OUTSIDE RECORDS SUMMARY | 2023-07-06 23:13 | External Medical Summary ---
Author Name Unknown Address Unknown Organization : Laboratory Report Ordering Provider Test Date Status LUKE MATAMOROS 06/07/2023 16:40:01 Final Observation Date Value Abnormality Reference (Units ) Status Copper 06/07/2023 16:40:01 100 70-175 (mc g/dL) Final This test was developed and its analytical performance
characteristics have been determined by [employer]
[place]. It has
not been cleared or approved by the U.S. Food and Drug
Administration. This assay has been validated pursuant
to the CLIA regulations and is used for clinical
purposes.

Test Performed at:
[facility]
[address] [facility]
[place] [address]
Paras Yuna M.D., Ph.D.,Director of Laboratories Performing Location
--- OUTSIDE RECORDS SUMMARY | 2023-07-06 23:13 | External Medical Summary ---
Author Name Unknown Address Unknown Organization [id number]:LAB[facility]ATORY [facility] - [address] [place] [address] Laboratory Report Ordering Provider Test Date Status LUKE MATAMOROS 06/01/2023 13:47:01 Final Observation Date Value Abnormality Reference (Units ) Status SYNC LEUKOCYTES IN BLOOD BY AUTOMATED COUNT 06/01/2023 13:47:01 5.86 4.00-10.80 (K/uL) Final Segs 06/01/2023 13:47:01 48.6 40.0-75.0 (%) Final Lymphs % 06/01/2023 13:47:01 43.0 Above high normal 18.0-42.0 (%) Final Monos 06/01/2023 13:47:01 6.0 1.0-11.0 (%) Final Eosinophils 06/01/2023 13:47:01 1.7 0.0-6.0 (%) Final Basos 06/01/2023 13:47:01 0.7 0.0-2.0 (%) Final Absolute Segs 06/01/2023 13:47:01 2.85 1.80-7.70 (K/uL) Final Lymphs, absolute 06/01/2023 13:47:01 2.52 1.00-4.80 (K/ul) Final Monos, Abs 06/01/2023 13:47:01 0.35 0.00-1.10 (K/uL) Final Eos, Abs 06/01/2023 13:47:01 0.10 0.00-0.70 (K/uL) Final Basos, Abs 06/01/2023 13:47:01 0.04 0.00-0.20 (K/uL) Final Performing Location [facility] [place] [facility] 0 - [address] [place] [address]
--- OUTSIDE RECORDS SUMMARY | 2023-07-06 23:13 | External Medical Summary ---
Author Name Unknown Address Unknown Organization [id number]:[facility] - [address] [place] [address] Laboratory Report Ordering Provider Test Date Status BARBARA ROBB 06/01/2023 13:47:01 Final Observation Date Value Abnormality Reference (Units ) Status Hep C Ab 06/01/2023 13:47:01 Negative Negative Final Further HCV quantitative cindy ting not performed per protocol. Performing Location [facility] - [address] [place] [address]
--- OUTSIDE RECORDS SUMMARY | 2023-07-06 23:13 | External Medical Summary | Summary of Care ---
Author Name Unknown Organization [facility] Address [address] [place] [address] Phone [phone] Care Team Providers Care Supervisor Dock Name Role Phone Steffi Zamudio MD Primary Care Provider [phone] Reason for Visit * Reason Comments Outpatient Testing Encounter Details Date Type Department Care Team (Late st Contact Info) Description 06/07/2023 4:50 PM EDT Laboratory Laboratory, [facility] 132 [place] [address] [facility] [address] [place] [address] Intestinal postoperative nonabsorption Allergies Active Allergy Reactions Criticality Noted Date [...] a week. 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 Overview: Genetic Testing Completed 08/30/2022: Test Result: POSITIVE Gene: PMS2 Variant: Deletion (Exons 12-14) ClinVarID: None This result is consistent with Jackson syndrome Test Ordered: Multi-Cancer Panel at [facility] (84 genes) Genes Included: AIP, ALK, APC, PATTY, AXIN2, BAP1, BARD1, BLM, BMPR1A, BRCA1, BRCA2, BRIP1, CASR, CDC73, CDH1, CDK4, CDKN1B, CDKN1C, CDKN2A (p14ARF), CDKN2A (w22CRI5s), CEBPA, CHEK2, CTNNA1, DICER1, DIS3L2, EGFR, EPCAM, FH, FLCN, GATA2, GPC3, GREM1, HOXB13, HRAS, KIT, MAX, MEN1, MET, MITF, MLH1, MSH2, MSH3, MSH6, MUTYH, NBN, NF1, NF2, NTHL1, PALB2, PDGFRA, PHOX2B, PMS2, POLD1, POLE, POT1, ZXDPX1A, PTCH1, PTEN, RAD50, RAD51C, RAD51D, RB1, RECQL4, RET, RUNX1, SDHA, SDHAF2, SDHB, SDHC, SDHD, SMAD4, SMARCA4, SMARCB1, SMARCE1, STK11, SUFU, TERC, TERT, [id number], TP53, TSC1, TSC2, VHL, WRN, WT1 Status [...] MFM consult Pt [place] [facility] [place]. For patients with previous [...] delivery at 36-37 weeks without amniocentesis per [employer]. Every effort [...] history of myomectomy. [place] [facility] History of prior w ith [...] indicate that she had a previous infection. [facility] EFW = 1487 01/10 (<3%) Reviewed [...] Weight Management, [facility] [address] [place] [address] Nurse Alma Connors Nutrition [facility] [address] [place] [address] 07/05/2023 3:45 PM EDT Imaging Radiology [facility] [address] [place] [address] 07/06/2023 7:00 AM EDT Office Visit Non [facility], Operating Room, [place] [address] [address] [facility], [place] [address] Ash Kendrick MD [address] [place] [address] 07/25/2023 4:30 PM EDT Office Visit Gynecology/Obstetric s [facility] [address] [place] [address] Tamiko Baker MD [address] [place] [address] 08/09/2023 2:00 PM EDT Office Visit Nutrition & Weight Management, [facility] [address] [place] [address] Joan Bright PA-C [address] [place] [address] 10/05/2023 1:30 PM EDT Office Visit Dermatology [facility] [place] [address] [place] [address] Duane Perez MD [address] [place] [address] 10/25/2023 2:00 PM EDT Office Visit General Internal Medicine [employer] [address] [place] [address] Steffi Zamudio MD [address] [place] [address] 03/07/2024 11:00 AM EST Telemedicine Hematology Oncology [facility] [address] [place] [address] Malignancy, Multidisciplinary Clinic High Risk Gi [address] [place], [place] [address] 05/16/2024 1:30 PM EST Office Visit Dermatology [employer] [address] [place] [address] Duane Perez MD 200 [facility] [place] [address] Pending Results Name Type Priority Associated Diagnoses [...] postoperative nonabsorption 06/07/2023 4:40 PM EDT Scheduled Procedures Name Priority Associated Diagnoses Date/Ti [...] and were consensually agreed upon. Care Teams Supervisor Dock Relationship Specialty Start Date End Date Steffi Zamudio MD [address] [place] [address] PCP - General Internal Medicine 05/04/11 documented as of this encounter
--- OUTSIDE RECORDS SUMMARY | 2023-07-06 23:13 | External Medical Summary ---
Author Name Unknown Address Unknown Organization K01:LAB[facility]ATORY [facility] - [facility] [address] [facility] [address] Laboratory Report Ordering Provider Test Date Status BARBARA ROBB 06/01/2023 13:47:01 Final Observation Date Value Abnormality Reference (Units ) Status HIV 1+2 Ab+HIV1 p24 Ag [Presence] in Serum or Plasma by Immunoassay 06/01/2023 13:47:01 Negative Negative Final Negative HIV-1/2 antigen and antibody screening tset results usually indicate the absence of HIV-1 and HIV-2 infection. However, such negative results do not rule-out acute HIV infection. If acute HIV-1 infection is highly suspected, it is recommended that a specimen be submitted for detection of HIV-1 RNA. Performing Location LABORATORY [facility] - [address] [place] [address]
--- OUTSIDE RECORDS SUMMARY | 2023-07-06 23:13 | External Medical Summary | Summary of Care ---
Author Name Unknown Organization [facility] Address [address] [address] Phone [phone] Care Team Providers Care Gluing Crew Leader Name Role Phone Steffi Zamudio MD Primary Care Provider [phone] Encounter Details Date Type Department Care Team (Late st Contact Info) Description 06/07/2023 Telephone [facility] [address] [place] [address] Alpa Mccormack PA-C [address] [place] [address] Allergies Active Allergy Reactions Criticality Noted Date [...] Pain, Severe. 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 Overview: Genetic Testing Completed 08/30/2022: Test Result: POSITIVE Gene: PMS2 Variant: Deletion (Exons 12-14) ClinVarID: None This result is consistent with Jackson syndrome Test Ordered: Multi-Cancer Panel at [facility] (84 genes) Genes Included: AIP, ALK, APC, PATTY, AXIN2, BAP1, BARD1, BLM, BMPR1A, BRCA1, BRCA2, BRIP1, CASR, CDC73, CDH1, CDK4, CDKN1B, CDKN1C, CDKN2A (p14ARF), CDKN2A (w91IFB5b), CEBPA, CHEK2, CTNNA1, DICER1, DIS3L2, EGFR, EPCAM, FH, FLCN, GATA2, GPC3, GREM1, HOXB13, HRAS, KIT, MAX, MEN1, MET, MITF, MLH1, MSH2, MSH3, MSH6, MUTYH, NBN, NF1, NF2, NTHL1, PALB2, PDGFRA, PHOX2B, PMS2, POLD1, POLE, POT1, ZYQVQ3J, PTCH1, PTEN, RAD50, RAD51C, RAD51D, RB1, RECQL4, RET, RUNX1, SDHA, SDHAF2, SDHB, SDHC, SDHD, SMAD4, SMARCA4, SMARCB1, SMARCE1, STK11, SUFU, TERC, TERT, SCAK099, TP53, TSC1, TSC2, VHL, WRN, WT1 Status [...] of cancer 10/06/2015 macrosomia 06/02/2015 07/01/2015 Overview: 3/16: @ 32w3d EFW 2598gm >95%; LAURI normal [...] MFM consult Pt planning repeat c/s at [facility] 1. For patients with previous myomectomy involving [...] delivery at 36-37 weeks without amniocentesis per [employer]. Every effort [...] history of myomectomy. Scheduled for 06/25/15 at [facility] History of prior w ith short cervix, [...] indicate that she had a previous infection. [facility] EFW = 1487 01/10 (<3%) Reviewed [...] contaminated Patient given flu vaccine. 12/10/2012 Vita Bundy, LUIS 12/17/2012 Tdap Vaccinedeferred Pt given VIS(vaccine information [...] Telephone Encounter - Barbara Pro LPN - 06/07/2023 10:02 AM EDT Patient notified * Telephone Encounter - Jennifer Ashby RN - 06/07/2023 8:20 AM EDT Attempted to call patient. No answer, LVM to return call. * Telephone Encounter - Alpa Mccormack PA-C - 06/07/2023 7:52 AM EDT Please call patient and let her know that endometrial biopsy was benign. Alpa Mccormack PA-C documented in this encounter Plan of Treatment Upcoming Encounters Date Type Department Care Team (Late st Contact Info) Description 06/07/2023 3:40 PM EDT Office Visit Nutrition & Weight Management, [facility] [address] [place] [address] Joan Bright PA-C [address] [place] [address] 06/20/2023 4:30 PM EDT Office Visit Gynecology/Obstetr ics [facility] [address] [place] [address] Tamiko Baker MD [address] [place] [address] 07/05/2023 3:45 PM EDT Imaging Radiology [facility] 1st Floor, [place] [address] [place] [address] 07/06/2023 7:00 AM EDT Office Visit [facility], Operating Room, [place] [address] [address] [facility], [place] [address] Ash Kendrick MD 132 [facility] [place] [address] 07/12/2023 3:10 PM EDT Nutrition Services Nutrition & Weight Management, [facility] [address] [place] [address] Kinsey Cage RDN 132 [facility] [place] [address] 10/05/2023 1:30 PM EDT Office Visit Dermatology [facility] [address] [place] [address] Duane Perez MD [address] [place] [address] 10/25/2023 2:00 PM EDT Office Visit General Internal Medicine [facility] [address] [place] [address] Steffi Zamudio MD [address] [facility] [place] [address] 03/07/2024 11:00 AM EST Telemedicine Hematology Oncology [address] [place] [phone] Malignancy, Multidisciplinary Clinic High Risk Gi [address] [place], [place] [address] 05/16/2024 1:30 PM EST Office Visit Dermatology [facility] 200 [facility] [address] Duane Perez MD 200 [facility] [place] [address] Scheduled Procedures Name Priority Associated Diagnoses Date/Ti [...] and were consensually agreed upon. Care Teams Gluing Crew Leader Relationship Specialty Start Date End Date Steffi Zamudio MD [address] [place] [address] PCP - General Internal Medicine 05/04/11 documented as of this encounter
--- OUTSIDE RECORDS SUMMARY | 2023-07-06 23:13 | External Medical Summary ---
Author Name Unknown Address Unknown Organization : Laboratory Report Ordering Provider Test Date Status LUKE MATAMOROS 06/07/2023 16:40:01 Final Observation Date Value Abnormality Reference (Units ) Status Zinc, level 06/07/2023 16:40:01 51 Below low normal 6 0-130 (mcg/dL) Final This test was developed and its analytical performance
characteristics have been determined by [facility]
[place]. It has
not been cleared or approved by the U.S. Food and Drug
Administration. This assay has been validated pursuant
to the CLIA regulations and is used for clinical
purposes.

Test Performed at:
[facility]
[address] [facility] [place] [address]
Paras Yuan M.D., Ph.D.,Director of Laboratories Performing Location
--- OUTSIDE RECORDS SUMMARY | 2023-07-06 23:13 | External Medical Summary ---
Author Name Unknown Address Unknown Organization K01:LABORATORY [facility] - [facility] [address] [place] [address] Laboratory Report Ordering Provider Test Date Status BARBARA ROBB 06/01/2023 13:47:01 Final Observation Date Value Abnormality Reference (Units ) Status Reagin Ab [Presence] in Serum by RPR 06/01/2023 13:47:01 Nonreactive Nonreactive Final Performing Location LABORATORY [facility] - [address] [place] [address]
--- OUTSIDE RECORDS SUMMARY | 2023-07-06 23:13 | External Medical Summary ---
Author Name Unknown Address Unknown Organization K01:LABORATORY [facility] - [address] [facility] [address] Laboratory Report Ordering Provider Test Date Status LUKE MATAMOROS 06/07/2023 16:40:01 Final Observation Date Value Abnormality Reference (Units ) Status Triglyceride 06/07/2023 16:40:01 61 <=174 ( mg/dL) Final Triglyceride Reference Range s (mg/dL):
<150 Acceptable
150-174 Borderline high
175-499 High
>=500 Very high Cholesterol 06/07/2023 16:40:01 150 <200 (mg /dL) Final Total Cholesterol Reference Ranges (mg/dL):
<200 Desirable
200-239 Borderline high
>=240 High HDL 06/07/2023 16:40:01 65 >49 (mg/dL ) Final HDL Cholesterol Reference Ra nges (mg/dL):
>=60 High (Desirable)
<50 Low (Undesirable) For Females
<40 Low (Undesirable) For Males NON-HDL CHOLESTEROL 06/07/2023 16:40:01 85 <=159 (mg/dL) Final Non-HDL Cholesterol Referenc e Range (mg/dL):
<100 Target level for high risk ASCVD patient
<130 Optimal for general population
130-159 Near optimal for general population
160-189 Borderline High
190-219 High
>=220 Very High LDL, (calculated) 06/07/2023 16:40:01 73 <= 129 (mg/dL) Final LDL Cholesterol Reference Ra nges (mg/dL):
<70 Target level for high risk ASCVD patient
<100 Optimal for general population
100-129 Near optimal for general population
130-159 Borderline high
160-189 High
>=190 Very high Performing Location LABORATORY [facility] - [address] [facility] [address]
--- OUTSIDE RECORDS SUMMARY | 2023-07-06 23:13 | External Medical Summary | Summary of Care ---
Author Name Unknown Organization [facility] Address [address] [facility] [address] Phone [phone] Care Team Providers Care Housing Director Name Role Phone Steffi Zamudio MD Primary Care Provider Reason for Visit * Reason Comments Caddy Return Encounter Details Date Type Department Care Team (Late st Contact Info) Description 06/01/2023 4:45 PM EST Office Visit Gynecology/Obstetric s aCrly Connors [address] [place] [address] Alpa Mccormack PA-C [address] [place] [address] Intramural leiomyoma of uterus*; PMS2-related Jackson syndrome (HNPCC4) Allergies Active Allergy Reactions Criticality Noted Date [...] surgery for weight loss 1000 mcg IM [id number] 08/02/2021 06/04/2023 A ctive documented as of this encounter (statuses as of 06/01/2023) Active Problems Problem Noted Date Diagnosed Date 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 Overview: Genetic Testing Completed 08/30/2022: Test Result: POSITIVE Gene: PMS2 Variant: Deletion (Exons 12-14) ClinVarID: None This result is consistent with Jackson syndrome Test Ordered: Multi-Cancer Panel at [facility] (84 genes) Genes Included: AIP, ALK, APC, PATTY, AXIN2, BAP1, BARD1, BLM, BMPR1A, BRCA1, BRCA2, BRIP1, CASR, CDC73, CDH1, CDK4, CDKN1B, CDKN1C, CDKN2A (p14ARF), CDKN2A ([id number]), CEBPA, CHEK2, CTNNA1, DICER1, DIS3L2, EGFR, EPCAM, FH, FLCN, GATA2, GPC3, GREM1, HOXB13, HRAS, KIT, MAX, MEN1, MET, MITF, MLH1, MSH2, MSH3, MSH6, MUTYH, NBN, NF1, NF2, NTHL1, PALB2, PDGFRA, PHOX2B, PMS2, POLD1, POLE, POT1, RIZPK1F, PTCH1, PTEN, RAD50, RAD51C, RAD51D, RB1, RECQL4, RET, RUNX1, SDHA, SDHAF2, SDHB, SDHC, SDHD, SMAD4, SMARCA4, SMARCB1, SMARCE1, STK11, SUFU, TERC, TERT, [id number], TP53, TSC1, TSC2, VHL, WRN, WT1 Status following gastric banding surgery for cleo ght loss 06/02/2021 Bilateral ovarian cysts 05/13/2021 Major depressive disorder with single episode Food insecurity 11/01/2020 Overview: Per [employer] [facility] Protocol Attention deficit disorder (ADD) [...] MFM consult Pt planning repeat c/s at [facility] 1. For patients [...] delivery at 36-37 weeks without amniocentesis per [employer]. Every effort [...] history of myomectomy. Scheduled for 06/25/15 at [facility] History of prior [...] Sign Reading Time Taken Comments Blood Pressure 110/64 06/01/2023 4:49 PM EST Pulse - - Temperature - - Respiratory Rate - - Oxygen Saturation - - Inhaled Oxygen Concentration - - Weight 70.9 kg (156 lb 3.2 oz) 06/01/2023 4:49 P M EST Height 170.2 cm (5' 7") 06/01/2023 4:49 PM EST Body Mass Index 24.46 06/01/2023 4:49 PM EST documented in this [...] as of this encounter Progress Notes * Alpa Mccormack PA-C - 06/01/2023 5:07 PM EST Chief Complaint: Patient is here today for endometrial biopsy. History of Present Illness: Patient is a here for endometrial biopsy. testing negative. Denies any unprotected intercourse in last 2 weeks. Patient counseled on need for emb, risks and benefits explained to patient Written consent obtained. A ''time out'' was initiated by Alpa Mccormack PA-C prior to procedure. The patient was identified by name and date of . The correct procedure, and correct site identified. Correct positioning (as applicable). There is availability of necessary equipment. Denies allergy to latex, betadine, or shellfish. Denies taking any blood thinners and denies need for SBE prophylaxis. Patient denied any allergy to betadine A sterile speculum was inserted into the vagina and the cervix visualized. The cervix was cleansed with betadine x 3 Tenaculum placed on anterior lip of cervix The uterus sounded to about 11 cm beyond measures Emb performed with 1 pass Tenaculum removed site removed Patient tolerated procedure well Plan: Intramural leiomyoma of uterus (Primary) - SURGICAL PATHOLOGY - URINE SCREEN, POINT OF CARE (ENTER/EDIT) PMS2-related Jackson syndrome (HNPCC4) - SURGICAL PATHOLOGY - URINE SCREEN, POINT OF CARE (ENTER/EDIT) Has hysterectomy scheduled 06/08/[address] Baker at [facility] secondary to above. RTO if symptoms worsen or fail to improve. Alpa Mccormack PA-C documented in this encounter Nursing Notes * Jennifer Ashby RN - 06/01/2023 4:50 PM EST Patient here for EMB UPT negative documented in this encounter Plan of Treatment Upcoming Encounters Date Type Department Care Team (Late st Contact Info) Description 06/07/2023 3:40 PM EDT Office Visit Nutrition & Weight Management, [facility] [address] [address] Joan Bright PA-C [address] [place] [address] 06/08/2023 7:00 AM EDT Office Visit Non [facility], Operating Room, [place] [address] [place] [place] [address] Ash Kendrick MD [address] [place] [address] 06/20/2023 4:30 PM EDT Office Visit Gynecology/Obstetr ics [facility] [address] [place] [address] Tamiko Baker MD [address] [place] [address] 07/05/2023 3:45 PM EDT Imaging [facility] 132 [facility] [place] [address] 07/12/2023 3:10 PM EDT Nutrition Services Nutrition & Weight Management, [facility] [place] [address] Kinsey Cage RDN [address] [employer] [place] [address] 10/05/2023 1:30 PM EDT Office Visit Dermatology [facility] [address] [place] [address] Duane Perez MD [address] [facility] [address] [place] [address] 10/25/2023 2:00 PM EDT Office Visit General Internal Medicine [facility] [place] [address] [place] [address] Steffi Zamudio MD [address] [facility] [place] [address] 03/07/2024 11:00 AM EST Telemedicine Hematology Oncology [facility] [address] [place] [address] Malignancy, Multidisciplinary Clinic [facility] [address], [place] [id number] 05/16/2024 1:30 PM EST Office Visit Dermatology [facility] [address] [place] [address] Duane Perez MD 200 [facility] [place] [address] Pending Results Name Type Priority Associated Diagnoses Date /Time SURGICAL PATHOLOGY Pathology Routine PMS2-related Jackson syndrome (HNPCC4) Intramural leiomyoma of uterus 06/01/2023 5:13 PM EST Scheduled Procedures Name Priority Associated [...] Procedure Name Priority Date/Time Associated Diagnosis Comments URINE SCREEN, POINT OF CARE (ENTER/EDIT) Routine 06/01/2023 PMS2-related Jackson syndrome (HNPCC4) Intramural leiomyoma of uterus documented in this encounter Results * URINE SCREEN, POINT OF CARE (ENTER/EDIT) (06/01/2023) hCG Beta, Urine Negative Negative Procedural Control Valid? Yes Lot Number [id number] Expiration Date 04/22/2024 Urine 06/01/2023 Alpa Mccormack PA-C LAB POINT OF CARE TE ST ENTER/EDIT ORDERABLES documented in this encounter Visit Diagnoses Diagnosis Intramural leiomyoma of uterus- Primary PMS2-related Jackson syndrome (HNPCC4) documented in this encounter Advance Directives Latest [...] and were consensually agreed upon. Care Teams Housing Director Relationship Specialty Start Date End Date Steffi Zamudio MD [address] [facility] [address] PCP - General Internal Medicine 05/04/11 documented as of this encounter
--- OUTSIDE RECORDS SUMMARY | 2023-07-06 23:13 | External Medical Summary | Summary of Care ---
Author Name Unknown Organization [facility] Address [address] [facility] [address] Phone [phone] Care Team Providers Care Chairman & Co Founder Name Role Phone Steffi Zamudio MD Primary Care Provider [phone] Reason for Visit * Reason Comments Audit Clerk Return Encounter Details Date Type Department Care Team (Late st Contact Info) Description 06/01/2023 4:45 PM EST Office Visit Gynecology/Obstetric s Carly Connors [address] [place] [address] Alpa Mccormack PA-C [address] [place] [address] Intramural leiomyoma of uterus*; PMS2-related Jackson syndrome [...] surgery for weight loss 1000 mcg IM [id number] 08/02/2021 06/04/2023 A ctive documented as of this encounter (statuses as of 06/01/2023) Active Problems Problem Noted Date Diagnosed Date 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 Overview: Genetic Testing Completed 08/30/2022: Test Result: POSITIVE Gene: PMS2 Variant: Deletion (Exons 12-14) ClinVarID: None This result is consistent with Jackson syndrome Test Ordered: Multi-Cancer Panel at [facility] (84 genes) Genes Included: AIP, ALK, APC, PATTY, AXIN2, BAP1, BARD1, BLM, BMPR1A, BRCA1, BRCA2, BRIP1, CASR, CDC73, CDH1, CDK4, CDKN1B, CDKN1C, CDKN2A (p14ARF), CDKN2A ([id number]), CEBPA, CHEK2, CTNNA1, DICER1, DIS3L2, EGFR, EPCAM, FH, FLCN, GATA2, GPC3, GREM1, HOXB13, HRAS, KIT, MAX, MEN1, MET, MITF, MLH1, MSH2, MSH3, MSH6, MUTYH, NBN, NF1, NF2, NTHL1, PALB2, PDGFRA, PHOX2B, PMS2, POLD1, POLE, POT1, XPLYQ0Z, PTCH1, PTEN, RAD50, RAD51C, RAD51D, RB1, RECQL4, RET, RUNX1, SDHA, SDHAF2, SDHB, SDHC, SDHD, SMAD4, SMARCA4, SMARCB1, SMARCE1, STK11, SUFU, TERC, TERT, [id number], TP53, TSC1, TSC2, VHL, WRN, WT1 Status following gastric banding surgery for cleo ght loss 06/02/2021 Bilateral ovarian cysts 05/13/2021 Major depressive disorder with single episode Food insecurity 11/01/2020 Overview: Per [employer] [facility] Protocol Attention deficit disorder (ADD) [...] MFM consult Pt planning repeat c/s at [facility] 1. For patients [...] history of myomectomy. Scheduled for 06/25/15 at [facility] History of prior [...] hysterectomy scheduled 06/08/[address] Baker at [facility] secondary to above. RTO if symptoms worsen [...] EDT Office Visit Nutrition & Weight Management, [facility] [address] [address] Joan Bright PA-C [address] [address] 06/08/2023 7:00 AM EDT Office Visit Non [facility], Operating Room, [place] [address] [address] [place] [address] Ash Kendrick MD [address] [place] [address] 06/20/2023 4:30 PM EDT Office Visit Gynecology/Obstetr ics [facility] [address] [place] [address] Tamiko Baker MD [address] [place] [address] 07/05/2023 3:45 PM EDT Imaging Radiology [facility] 132 [facility] [place] [address] 07/12/2023 3:10 PM EDT Nutrition Services Nutrition & Weight Management, [facility] [place] [address] Kinsey Cage RDN 132 [facility] [place] [address] 10/05/2023 1:30 PM EDT Office Visit Dermatology [facility] [address] [place] [address] Duane Perez MD 200 [facility] [address] [place] [address] 10/25/2023 2:00 PM EDT Office Visit General Internal Medicine [facility] [place] [address] [place] [address] Steffi Zamudio MD [address] COUNT INCLUDES [facility] [place] [address] 03/07/2024 11:00 AM EST Telemedicine Hematology Oncology [facility] [address] [place] [address] Malignancy, Multidisciplinary Clinic High Risk Gi [address] [place], [place] [phone] 05/16/2024 1:30 PM EST Office Visit Dermatology [facility] [address] [place] [address] Duane Perez MD 200 [facility] [place] [address] Pending Results Name Type Priority Associated Diagnoses [...] and were consensually agreed upon. Care Teams Chairman & Co Founder Relationship Specialty Start Date End Date Steffi Zamudio MD 200 [facility] [place] [address] PCP - General Internal Medicine 05/04/11 documented as of this encounter
--- OUTSIDE RECORDS SUMMARY | 2023-07-06 23:13 | External Medical Summary ---
Author Name Unknown Address Unknown Organization K01:LABORATORY [facility] - [address] [facility] [place] [address] Laboratory Report Ordering Provider Test Date Status LUKE MATAMOROS 06/07/2023 16:40:01 Final Observation Date Value Abnormality Reference (Units ) Status BUN 06/07/2023 16:40:01 12 6-20 (mg/dL) Final Creatinine 06/07/2023 16:40:01 0.7 0.5-1.0 (mg/dL) Final Glomerular filtration rate/1.73 sq M.predicted [Volume Rate/Area] in Serum, Plasma or Blood by Creatinine-based formula (CKD-EPI) 06/07/2023 16:40:01 >90 >=60 (mL/min) Final eGFR is calculated based on the CKD-EPI 2020 equation SODIUM 06/07/2023 16:40:01 138 135-146 (m mol/L) Final Potassium 06/07/2023 16:40:01 3.7 3.5-5.1 (m mol/L) Final Cl 06/07/2023 16:40:01 104 98-107 (mm ol/L) Final CO2 06/07/2023 16:40:01 26 22-32 (mmo l/L) Final Anion gap 06/07/2023 16:40:01 8 7-15 (mmol /L) Final Glucose 06/07/2023 16:40:01 85 70-120 (mg /dL) Final Albumin 06/07/2023 16:40:01 4.3 3.8-5.0 (g /dL) Final AST (Aspartate aminotransferase) 06/07/2023 16:40:01 17 10-35 (U/L) Final Alk Phos 06/07/2023 16:40:01 50 35-130 (U/ L) Final Bilirubin, Total 06/07/2023 16:40:01 0.3 <=1 .2 (mg/dL) Final Calcium 06/07/2023 16:40:01 8.9 8.4-10.2 ( mg/dL) Final Protein 06/07/2023 16:40:01 6.5 6.0-8.3 (g /dL) Final ALT (Alanine aminotransferase) 06/07/2023 16:40:01 14 10-35 (U/L) Final Performing Location LABORATORY [facility] - [address] [facility] [address]
--- OUTSIDE RECORDS SUMMARY | 2023-07-06 23:13 | External Medical Summary | Summary of Care ---
Author Name Unknown Organization [facility] Address [address] [facility] [place] [address] Phone [phone] Care Team Providers Care Assistant To The Vice President Name Role Phone Steffi Zamudio MD Primary Care Provider [phone] Encounter Details Date Type Department Care Team (Late st Contact Info) Description 06/07/2023 Telephone [facility] [address] [place] [address] Alpa Mccormack PA-C [address] [place] [address] Allergies Active Allergy Reactions Criticality Noted Date [...] Jackson syndrome Test Ordered: Multi-Cancer Panel at [facility] (84 genes) Genes Included: AIP, ALK, APC, PATTY, AXIN2, BAP1, BARD1, BLM, BMPR1A, BRCA1, BRCA2, BRIP1, CASR, CDC73, CDH1, CDK4, CDKN1B, CDKN1C, CDKN2A (p14ARF), CDKN2A (b25OHU0i), CEBPA, CHEK2, CTNNA1, DICER1, DIS3L2, EGFR, EPCAM, FH, FLCN, GATA2, GPC3, GREM1, HOXB13, HRAS, KIT, MAX, MEN1, MET, MITF, MLH1, MSH2, MSH3, MSH6, MUTYH, NBN, NF1, NF2, NTHL1, PALB2, PDGFRA, PHOX2B, PMS2, POLD1, POLE, POT1, DQVTD1N, PTCH1, PTEN, RAD50, RAD51C, RAD51D, RB1, RECQL4, RET, RUNX1, SDHA, SDHAF2, SDHB, SDHC, SDHD, SMAD4, SMARCA4, SMARCB1, SMARCE1, STK11, SUFU, TERC, TERT, [id number], TP53, TSC1, TSC2, VHL, WRN, WT1 Status [...] delivery at 36-37 weeks without amniocentesis per [employer] [place]. Every effort [...] indicate that she had a previous infection. [facility] EFW = 1487 01/10 (<3%) Reviewed [...] encounter Miscellaneous Notes * Telephone Encounter - Jennifer Ashby RN [...] Management, [facility] [address] [place] [address] Joan Bright PA-C [address] [place] [address] 06/20/2023 4:30 PM EDT Office Visit Gynecology/Obstetr ics [facility] [address] [place] [address] Tamiko Baker MD [facility] [address] 07/05/2023 3:45 PM EDT Imaging Radiology [facility] 1st [facility] 132 [facility] [place] [address] 07/06/2023 7:00 AM EDT Office Visit Non [facility], Operating Room, [facility] [address] [place] [facility] [address] Ash Kendrick MD 132 [facility] [address] 07/12/2023 3:10 PM EDT Nutrition Services Nutrition & Weight Management, [facility] 132 [place] [address] Kinsey Cage RDN 132 [facility] [place] [address] 10/05/2023 1:30 PM EDT Office Visit Dermatology [facility] 200 [facility] [place] [address] Duane Perez MD 200 [facility] [place] [address] 10/25/2023 2:00 PM EDT Office Visit General Internal Medicine [facility] 200 [facility] [place] [address] Steffi Zamudio MD 200 [facility] [place] [address] 03/07/2024 11:00 AM EST Telemedicine Hematology Oncology [facility] [address] [place] [phone] Malignancy, Multidisciplinary Clinic High Risk Gi [address] [place] [address] 05/16/2024 1:30 PM EST Office Visit Dermatology [facility] [address] [place] [address] Duane Perez MD [address] [place] [address] Scheduled Procedures Name Priority Associated Diagnoses Date/Ti [...] and were consensually agreed upon. Care Teams Assistant To The Vice President Relationship Specialty Start Date End Date Steffi Zamudio MD 200 [place] [address] PCP - General Internal Medicine 05/04/11 documented as of this encounter
--- OUTSIDE RECORDS SUMMARY | 2023-07-06 23:14 | External Medical Summary | Summary of Care ---
Author Name Unknown Organization [facility] Address [address] [place] [address] Phone [phone] Care Team Providers Care Geophysicist Name Role Phone Steffi Zamudio MD Primary Care Provider [phone] Reason for Visit * Reason Comments Follow Up The pt stated she is here for her 6 month follow up appointment. The pt denies any new issues at this time. Encounter Details Date Type Department Care Team (Late st Contact Info) Description 04/26/2023 3:20 PM EST Office Visit General Internal Medicine [facility] [place] [address] [facility] [place] [address] Steffi Zamudio MD [address] [facility] COUNT INCLUDES THE [facility] [place] [id number] Memory loss*; Bilateral ovarian cysts; Compulsive skin picking; Hypertrophic scar; Attention deficit disorder (ADD) without hyperactivity; Mixed emotional features as adjustment reaction; Iron deficiency anemia secondary to inadequate dietary iron intake; Acne vulgaris; Current mild episode of major depressive disorder without prior episode (HCC); Major depressive disorder with single episode, in partial remission (HCC); PMS2-related Ajckson syndrome (HNPCC4); Status following gastric banding surgery for weight loss; Celiac sprue; Need for hepatitis B vaccination; Encounter for HCV screening test for low risk patient Allergies Active Allergy Reactions Criticality Noted Date Comments Adhesive Tape Rash 03/23/2021 Band-aides -rash Gluten Rash 07/12/2012 Celiac disease documented as of this encounter (statuses as of 05/08/2023) Medications Medication Sig Dispensed Refills Start Date End Date Status Hydroquinone 4 % External Cream Apply to brown spots on face 2x per day for 2 months 28.35 g 1 02/01/2021 Active Vitamin D 50 MCG (2000 UT) Oral CapsuleIndications: Status following gastric banding [...] and chest 60 g 2 04/09/2023 Active Semaglutide(0.25 or 0.5MG/DOS) 2 MG/3ML Solution Pen-injector (Ozempic) Inject 0.5 mg under the skin once a week. 3 mL 3 04/11/2023 Active buPROPion HCl ER (XL) 150 MG Oral Tablet Extended Release 24 Hour (Wellbutrin XL)Indications:Mixe d emotional features as adjustment reaction TAKE 1 TABLET BY MOUTH IN THE MORNING 30 Tablet 5 04/14/2023 Active Viactiv Calcium Immune 650-20-5.5 MG-MCG-MG Oral Tablet Chewable (Calcium-Cholecalci ferol-Zinc) Take by mouth 2 Tablets daily . 0 4 Discontinued Womens One Daily Oral Tablet Take by mouth 2 Gum Dosing Unit daily . 0 4 Discontinued Calcium Carb-Cholecalcifero l 600-400 MG-UNIT Oral Tablet 1 Tablet . 0 05/30/2021 4 Discontinued Zinc 50 MG Oral CapsuleIndications: Intestinal postoperative nonabsorption Take 1 Capsule by mouth in the morning. 0 4 Discontinued Bariatric Multivitamins/Iron Oral Capsule Take by mouth. 0 4 Discontinued Bariatric Fusion Oral Tablet Chewable Take by mouth. Calcium chew 0 4 Discontinued Hydrocortisone 2.5 % External Cream Apply to rash in left armpit twice daily for 10-14 days 30 g 1 04/11/2023 4 Discontinued Hospital, Clinic, or Other Facility Administered Medication Ordered Dose Route Frequency Start Date End Date Status vitamin b-12 (Cyanocobalamin) inj 1,000 mcgIndications:Status following gastric banding surgery for weight loss 1000 mcg IM [id number] 08/02/2021 06/04/2023 A ctive documented as of this encounter (statuses as of 05/08/2023) Active Problems Problem Noted Date Diagnosed Date [...] CDH1, CDK4, CDKN1B, CDKN1C, CDKN2A (p14ARF), CDKN2A ([id number]), CEBPA, CHEK2, CTNNA1, DICER1, DIS3L2, EGFR, EPCAM, FH, FLCN, GATA2, GPC3, GREM1, HOXB13, HRAS, KIT, MAX, MEN1, MET, MITF, MLH1, MSH2, MSH3, MSH6, MUTYH, NBN, NF1, NF2, NTHL1, PALB2, PDGFRA, PHOX2B, PMS2, POLD1, POLE, POT1, NVWTQ1A, PTCH1, PTEN, RAD50, RAD51C, RAD51D, RB1, RECQL4, RET, RUNX1, SDHA, SDHAF2, SDHB, SDHC, SDHD, SMAD4, SMARCA4, SMARCB1, SMARCE1, STK11, SUFU, TERC, TERT, [id number], TP53, TSC1, TSC2, VHL, WRN, WT1 Status [...] as of this encounter (statuses as of 05/08/2023) Resolved Problems Problem Noted Date Diagnosed Date [...] MFM consult Pt planning repeat c/s at [facility] 1. For patients with [...] delivery at 36-37 weeks without amniocentesis per [employer]. Every effort should be made by patient s primary OB provider to obtain prior operative reports. 3. Based on recent myomectomy recommend repeat delivery with current and subsequent pregnancies. MF 04/15/15: Recommend follow up ultrasound with MFM in 4-6 weeks for growth secondary to history of IUGR in prior . Recommend delivery at 36 weeks gestation secondary to history of myomectomy. Scheduled for 06/25/15 at [facility] History of prior w [...] as of this encounter (statuses as of 05/08/2023) Immunizations Name Administration Dates Next Due Pneumococcal [...] Reading Time Taken Comments Blood Pressure 92/60 04/26/2023 3:35 PM EST Pulse 81 04/26/2023 3:35 PM EST Temperature 37 C (98.6 F) 04/26/2023 3:35 PM EST Respiratory Rate - - Oxygen Saturation 98% 04/26/2023 3:35 PM EST Inhaled Oxygen Concentration - - Weight 71.1 kg (156 lb 11.2 oz) 04/26/2023 3:35 PM EST Height 171.5 cm (5' 7.5") 04/26/2023 3:35 PM EST Body Mass Index 24.18 04/26/2023 3:35 PM EST documented in this encounter Functional [...] as of this encounter Progress Notes * Steffi Zamudio MD - 04/26/2023 3:42 PM EST Images from the original note were not included. History of Present Illness Parris Gay is a 42 year old female that presents for Follow Up (The pt stated she is here for her 6 month follow up appointment. The pt denies any new issues at this time. ) 42 YOF with PMH of Celiac sprue with iron def anemia, cheilitis, family history metastatic adenocarcinoma presents here for recheck. Acute concern :- -BP low and been feeling tired and lightheaded. Drinks enough fluid but not lately -mentioned memory loss here and there . Sleep good Interimmedical history : seen by GI nutrition and surgery for ventral hernia - getting durgery soon Watching diet and exercise : yes Routine labs : due Routine HM : declines all vaccines Chronic medical problem: reviewed and stable Physical Exam Vitals: 04/26/23 1535 Temp: 37 C (98.6 F) Pulse: 81 SpO2: 98% BP: 92/60 BMI: 24.17 Physical Exam Vitals and nursing note reviewed. Constitutional: General: She is not in acute distress. Appearance: She is normal weight. HENT: Head: Normocephalic. Cardiovascular: Rate and Rhythm: Normal rate and regular rhythm. Pulmonary: Effort: Pulmonary effort is normal. No respiratory distress. Breath sounds: No wheezing. Abdominal: General: Bowel sounds are normal. There is no distension. Palpations: Abdomen is soft. There is no mass. Musculoskeletal: General: No swelling, tenderness or signs of injury. Cervical back: Neck supple. No rigidity. Skin: General: Skin is warm. Findings: No erythema, lesion or rash. Neurological: Mental Status: She is alert. Psychiatric: Mood and Affect: Mood normal. I have reviewed the following results: Assessment and Plan Memory loss - TSH WITH FREE T4 IF INDICATED; Future - RPR; Future - HIV ANTIGEN & ANTIBODY SCREEN W/ CONFIRMATION; Future Bilateral ovarian cysts Compulsive skin picking Hypertrophic scar Attention deficit disorder (ADD) without hyperactivity - TSH WITH FREE T4 IF INDICATED; Future Mixed emotional features as adjustment reaction Iron deficiency anemia secondary to inadequate dietary iron intake Acne vulgaris Current mild episode of major depressive disorder without prior episode (HCC) Major depressive disorder with single episode, in partial remission (HCC) Stable Can work on reducing meds since feels better PMS2-related Jackson syndrome (HNPCC4) Status following gastric banding surgery for weight loss Celiac sprue - 25-HYDROXY VITAMIN D; Future Need for hepatitis B vaccination - HEPATITIS B SURFACE ANTIBODY; Future Encounter for HCV screening test for low risk patient - HEPATITIS C ANTIBODY SCREEN WITH PROGRESSION TO HEPATITIS C RNA QUANTITATIVE; Future Wrap-Up Time: I spent a total of 30-39 minutes (exact time 32 mins) on the date of service in preparation, delivery, and documentation of the care provided to Parris Gay excluding any time spent in the performance of separately billed services. documented in this encounter Nursing Notes * Jose Hall LPN - 04/26/2023 3:34 PM EST Chief Complaint Patient presents with Follow Up The pt stated she is here for her 6 month follow up appointment. The pt denies any new issues at this time. documented in this encounter Plan of Treatment Upcoming Encounters Date Type Department Care Team (Late st Contact Info) Description 05/23/2023 11:45 AM EST Office Visit Gynecology/Obstetr ics [facility] [address] [place] [address] Tamiko Baker MD [address] [place] [id number] 06/07/2023 3:40 PM EDT [facility] [address] [place] [address] Joan Bright PA-C [address] [place] [address] 06/08/2023 7:00 AM EDT Office Visit Non [facility], Operating Room, [facility] [address] [place] [facility] [place] [facility] [address] Ash Kendrick MD [address] [place] [address] 06/20/2023 4:30 PM EDT Office Visit Gynecology/Obstetr ics [facility] [address] [place] [address] Tamiko Baker MD [address] [place] [address] 07/05/2023 3:45 PM EDT Imaging Radiology [facility] [facility] [address] [place] [address] 07/12/2023 3:10 PM EDT Nutrition Services Nutrition & Weight Management, [facility] [address] [place] [address] Kinsey Cage RDN [address] [place] [address] 10/05/2023 1:30 PM EDT Office Visit Dermatology [facility] [address] [place] [address] Duane Perez MD [address] [place] [address] 10/25/2023 2:00 PM EDT Office Visit General Internal Medicine [facility] [address] [place] [address] Steffi Zamudio MD [address] COUNT INCLUDES THE [facility] [place] [address] 03/07/2024 11:00 AM EST Telemedicine Hematology Oncology [facility] [place] [address] [place] [address] Malignancy, Multidisciplinary Clinic [facility] [address] [place] [address] 05/16/2024 1:30 PM EST Office Visit Dermatology [facility] [place] [address] [facility] [place] [address] Duane Perez MD [address] [facility] [place] [address] Scheduled Orders Name Type Priority Associated Diagnoses Orde r Schedule HEPATITIS B SURFACE ANTIBODY Lab Routine Need for hepatitis B vaccination Expected: 04/26/2023 (Approximate), Expires: 04/25/2024 25-HYDROXY VITAMIN D Lab Routine Celiac sprue Expected: 04/26/2023 (Approximate), Expires: 04/25/2024 HEPATITIS C ANTIBODY SCREEN WITH PROGRESSION TO HEPATITIS C RNA QUANTITATIVE Lab Routine Encounter for HCV screening test for low risk patient Expected: 04/26/2023 (Approximate), Expires: 04/25/2024 TSH WITH FREE T4 IF INDICATED Lab Routine Attention deficit disorder (ADD) without hyperactivity Memory loss Expected: 04/26/2023 (Approximate), Expires: 04/25/2024 RPR Lab Routine Memory loss Expected: 04/26/2023 (Approximate), Expires: 04/25/2024 HIV ANTIGEN & ANTIBODY SCREEN W/ CONFIRMATION Lab Routine Memory loss Expected: 04/26/2023 (Approximate), Expires: 04/25/2024 Scheduled Procedures Name Priority Associated Diagnoses Date/Ti me COLONOSCOPY FLEXIBLE PROXIMAL DIAGNOSTIC Recall PMS2-related Jackson syndrome (HNPCC4) ESOPHAGOGASTRODUODENOSCOPY ( EGD), FLEXIBLE, TRANSORAL, DIAGNOSTIC Recall PMS2-related Jackson syndrome (HNPCC4) Health Maintenance Due Date Last Done Comments Hepatitis B (1 of 3 - 3-dose series) 1980 COVID-19 Vaccine (#1) 05/27/1981 Hepatitis C Screening 1998 HPV/Co-Test 2010 Influenza Vaccine (FLU shot) (#1) 2022 02/26/2020, [...] as of this encounter Visit Diagnoses Diagnosis Memory loss- Primary Bilateral ovarian cysts Other and unspecified ovarian cyst Compulsive skin picking Other disorder of impulse control Hypertrophic scar 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 Mixed emotional features as adjustment reaction Adjustment disorder with mixed anxiety and depressed mood Iron deficiency anemia secondary to inadequate dietary iron intake Acne vulgaris Other acne Current mild episode of major depressive disorder without prior episode (HCC) Major depressive disorder with single episode, in partial remission (HCC) PMS2-related Jackson syndrome (HNPCC4) Status following gastric banding surgery for weight loss Bariatric surgery status Celiac sprue Celiac disease Need for hepatitis B vaccination Need for prophylactic vaccination and inoculation against viral hepatitis Encounter for HCV screening test for low risk patient documented in this encounter Advance Directives Latest [...] and were consensually agreed upon. Care Teams Geophysicist Relationship Specialty Start Date End Date Steffi Zamudio MD [address] [place] [address] PCP - General Internal Medicine 05/04/11 documented as of this encounter
--- OUTSIDE RECORDS SUMMARY | 2023-07-06 23:14 | External Medical Summary | Summary of Care ---
Author Name Unknown Organization [facility] Address [address] [place] [address] Phone [phone] Care Team Providers Care Field Advisor Name Role Phone Steffi Zamudio MD Primary Care Provider [phone] Reason for Visit * Reason Onset Date Comments Advice 05/10/2023 Encounter Details Date Type Department Care Team (Late st Contact Info) Description 05/10/2023 Telephone Nutrition & Weight Management, [place] [address] [place], [place] [id number] Services, Scheduling [address] [place] [address] Advice Allergies Active Allergy Reactions Criticality Noted Date Comments Adhesive Tape Rash 03/23/2021 Band-aides -rash Gluten Rash 07/12/2012 Celiac disease documented as of this encounter (statuses as of 05/10/2023) Medications Medication Sig Dispensed Refills Start Date [...] Active Cyclobenzaprine HCl 5 MG Oral Tablet (Flexeril)Indication s:Neck pain TAKE 1 TABLET BY MOUTH TWICE [...] THE MORNING 30 Tablet 5 04/14/2023 Active Hospital, Clinic, or Other Facility Administered Medication Ordered Dose Route Frequency Start Date End Date Status vitamin b-12 (Cyanocobalamin) inj 1,000 mcgIndications:Status following gastric banding surgery for weight loss 1000 mcg IM [id number] 08/02/2021 06/04/2023 A ctive documented as of this encounter (statuses as of 05/10/2023) Active Problems Problem Noted Date Diagnosed Date 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 Overview: Genetic Testing Completed 08/30/2022: Test Result: POSITIVE Gene: PMS2 Variant: Deletion (Exons 12-14) ClinVarID: None This result is consistent with Jackson syndrome Test Ordered: Multi-Cancer Panel at [facility] (84 genes) Genes Included: AIP, ALK, APC, PATTY, AXIN2, BAP1, BARD1, BLM, BMPR1A, BRCA1, BRCA2, BRIP1, CASR, CDC73, CDH1, CDK4, CDKN1B, CDKN1C, CDKN2A (p14ARF), CDKN2A (t45COL1a), CEBPA, CHEK2, CTNNA1, DICER1, DIS3L2, EGFR, EPCAM, FH, FLCN, GATA2, GPC3, GREM1, HOXB13, HRAS, KIT, MAX, MEN1, MET, MITF, MLH1, MSH2, MSH3, MSH6, MUTYH, NBN, NF1, NF2, NTHL1, PALB2, PDGFRA, PHOX2B, PMS2, POLD1, POLE, POT1, FHVYY0N, PTCH1, PTEN, RAD50, RAD51C, RAD51D, RB1, RECQL4, RET, RUNX1, SDHA, SDHAF2, SDHB, SDHC, SDHD, SMAD4, SMARCA4, SMARCB1, SMARCE1, STK11, SUFU, TERC, TERT, [id number], TP53, TSC1, TSC2, VHL, WRN, WT1 Status [...] as of this encounter (statuses as of 05/10/2023) Resolved Problems Problem Noted Date Diagnosed Date [...] MFM consult Pt [place] [facility] [place]. For patients with previous myomectomy involving [...] delivery at 36-37 weeks without amniocentesis per [employer]. Every effort [...] history of myomectomy. Scheduled for [place] [facility] History of prior w ith short cervix, [...] indicate that she had a previous infection. [facility] EFW = 1487 01/10 (<3%) Reviewed [...] Tdap Vaccinedeferred Pt given VIS(vaccine information sheet) Tragn Leung RN Family history of diabetes mellitus [...] as of this encounter (statuses as of 05/10/2023) Immunizations Name Administration Dates Next Due Pneumococcal [...] Telephone Encounter - Angela Williamson RN - 05/10/2023 3:38 PM EST Jillian is aware, pt was told that she needs a follow up to discuss med changes as we do not support higher doses for her at this time. Has an appt 06/06. * Telephone Encounter - Charmaine Gill OSA - 05/10/2023 2:24 PM EST Pt called stating she is going to continue Wegovy 2.4 mg due to 10 lb weight gain since decreasing dosage amt documented in this encounter Plan of Treatment Upcoming Encounters Date Type Department Care Team (Late st Contact Info) Description 05/23/2023 11:45 AM EST Office Visit Gynecology/Obstetr ics [facility] [address] [address] Tamiko Baker MD [address] [place] [address] 06/07/2023 3:40 PM EDT Office Visit Nutrition & Weight Management, [facility] [address] [address] Joan Bright PA-C [address] [place] [address] 06/08/2023 7:00 AM EDT Office Visit Non [facility], Operating Room, [facility] [address] [facility], [place] [address] Ash Kendrick MD [address] [place] [address] 06/20/2023 4:30 PM EDT Office Visit Gynecology/Obstetr ics [facility] [address] [place] [address] Tamiko Baker MD [address] [place] [address] 07/05/2023 3:45 PM EDT Imaging Radiology [facility] [address] [facility] [place] [address] 07/12/2023 3:10 PM EDT Nutrition Services Nutrition & Weight Management, [facility] [address] [facility] [place] [address] Kinsey Cage RDN [address] [facility] [place] [address] 10/05/2023 1:30 PM EDT Office Visit Dermatology [facility] [address] [place] [address] Duane Perez MD [address] [facility] [place] [address] 10/25/2023 2:00 PM EDT Office Visit General Internal Medicine [facility] [address] [facility] [place] [address] Steffi Zamudio MD [address] [facility] [place] [address] 03/07/2024 11:00 AM EST Telemedicine Hematology Oncology [facility] [address] [place] [address] Malignancy, Multidisciplinary Clinic [facility] [address] [place] [address] 05/16/2024 1:30 PM EST Office Visit Dermatology [facility] [address] [facility] [place] [address] Duane Perez MD [address] [facility] [place] [address] Scheduled Procedures Name Priority Associated Diagnoses Date/Ti [...] and were consensually agreed upon. Care Teams Field Advisor Relationship Specialty Start Date End Date Steffi Zamudio MD [address] [facility] [address] PCP - General Internal Medicine 05/04/11 documented as of this encounter
--- OUTSIDE RECORDS SUMMARY | 2023-07-06 23:14 | External Medical Summary | Summary of Care ---
Author Name Unknown Organization [facility] Address [address] [place] [address] Phone [phone] Care Team Providers Care Peripheral Equipment Operator Name Role Phone Steffi Zamudio MD Primary Care Provider [phone] Reason for Visit * Reason Onset Date Comments Advice 04/30/2023 Encounter Details Date Type Department Care Team (Late st Contact Info) Description 04/30/2023 Telephone Nutrition & Weight Management, [facility] [address] [place], [place] [phone] Services, Scheduling [address] [place] [address] Advice Allergies Active Allergy Reactions Criticality Noted [...] surgery for weight loss 1000 mcg IM [id number] 08/02/2021 06/04/2023 A ctive documented as of this encounter (statuses as of 05/08/2023) Active Problems Problem Noted Date Diagnosed Date 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 Overview: Genetic Testing Completed 08/30/2022: Test Result: POSITIVE Gene: PMS2 Variant: Deletion (Exons 12-14) ClinVarID: None This result is consistent with Jackson syndrome Test Ordered: Multi-Cancer Panel at [facility] (84 genes) Genes Included: AIP, ALK, APC, PATTY, AXIN2, BAP1, BARD1, BLM, BMPR1A, BRCA1, BRCA2, BRIP1, CASR, CDC73, CDH1, CDK4, CDKN1B, CDKN1C, CDKN2A (p14ARF), CDKN2A ([id number]), CEBPA, CHEK2, CTNNA1, DICER1, DIS3L2, EGFR, EPCAM, FH, FLCN, GATA2, GPC3, GREM1, HOXB13, HRAS, KIT, MAX, MEN1, MET, MITF, MLH1, MSH2, MSH3, MSH6, MUTYH, NBN, NF1, NF2, NTHL1, PALB2, PDGFRA, PHOX2B, PMS2, POLD1, POLE, POT1, TOAMY4S, PTCH1, PTEN, RAD50, RAD51C, RAD51D, RB1, RECQL4, RET, RUNX1, SDHA, SDHAF2, SDHB, SDHC, SDHD, SMAD4, SMARCA4, SMARCB1, SMARCE1, STK11, SUFU, TERC, TERT, TCGU041, TP53, TSC1, TSC2, VHL, WRN, WT1 Status [...] MFM consult Pt planning repeat c/s at [facility] 1. For patients with previous myomectomy involving [...] delivery at 36-37 weeks without amniocentesis per [employer]. Every [...] history of myomectomy. Scheduled for 06/25/15 at [facility] History of prior w ith short cervix, [...] indicate that she had a previous infection. [facility] EFW = 1487 01/10 (<3%) Reviewed [...] Telephone Encounter - Angela Williamson RN - 05/08/2023 12:22 PM EST Pt calling to clarify her question. She explained that she has been on the Wegovy 2.4 mg was not eating enough protein and at the end of last year, it was changed to 1.0 and had been maintaining/ losing. Reports she has had a 10 lb weight gain in the past 2 weeks without changing her diet "from before." She explains that she was supposed to drop down to the 0.5 mg this week but she feels that "the best dose is 1.7." She states she still has a lot of the 2.4 mg dose so if she cannot go to 1.7, she will just go fromthe 1 mg back to the 2.4 mg instead of decreasing her dose. She is aware our recommendation is for her to see Kinsey, and has an appt scheduled in May. She is asking if this can be forwarded to [facility] for review. * Telephone Encounter - Angela Williamson RN - 05/07/2023 2:12 PM EST I left a message for the patient to . * Telephone Encounter - Selina Camarena OSA - 05/04/2023 3:56 PM EST Pt returning call, no nurse available. Please call her back * Telephone Encounter - Anamika Sarabia RN - 05/04/2023 2:30 PM EST Attempted to reach patient, no answer. LM * Telephone Encounter - Selina Camarena, SHAMA - 05/04/2023 2:24 PM EST Pt calling again and has questions regarding medications. Please call her back. * Telephone Encounter - Antonia Nieves OSA - 04/30/2023 1:34 PM EST Pt scheduled on 07/12/23 with Kinsey Cage * Telephone Encounter - Joan Bright PA-C - 04/30/2023 1:14 PM EST Please schedule follow up appointment with RD No changes at this time * Telephone Encounter - Héctor Han OSA - 04/30/2023 1:04 PM EST Pt is calling in with concerns about lowering her dose of wegovy. Pt is wanting to stay at her current dose or even possibly go up higher. She is gaining weight and up 7lbs. She starting to eat similar to her old days she stated. Pt would like a call back to discuss this Is aware she does have annual bold appt coming up on 06/07/23 but wanted to reach out sooner. Please advise. Thank you documented in this encounter Plan of Treatment Upcoming Encounters Date Type Department Care Team (Late st Contact Info) Description 05/23/2023 11:45 AM EST Office Visit Gynecology/Obstetr [address] [place] [address] Tamiko Baker MD [address] [place] [address] 06/07/2023 3:40 PM EDT Office Visit Nutrition & Weight Management, [facility] [address] [place] [address] Joan Bright PA-C [address] [place] [address] 06/08/2023 7:00 AM EDT Office Visit [facility], Operating Room, [facility] [address] [place] [facility] [place] [address] Ash Kendrick MD [address] [place] [address] 06/20/2023 4:30 PM EDT Office Visit Gynecology/Obstetr ics [facility] [address] [place] [address] Tamiko Baker MD [address] [place] [address] 07/05/2023 3:45 PM EDT Imaging Radiology [facility] 1st [facility] [address] [place] [address] 07/12/2023 3:10 PM EDT Nutrition Services Nutrition & Weight Management, [facility] [address] [place] [address] Kinsey Cage RDN [address] [place] [address] 10/05/2023 1:30 PM EDT Office Visit Dermatology [facility] [address] [facility] [place] [address] Duane Perez MD [address] [facility] [place] [address] 10/25/2023 2:00 PM EDT Office Visit General Internal Medicine [facility] [place] [address] [facility] [address] [place], [place] [address] Steffi Zamudio MD [address] [facility] [address] [place], [place] [address] 03/07/2024 11:00 AM EST Telemedicine Hematology Oncology [facility] [address] [place] [phone] Malignancy, Multidisciplinary Clinic [facility] [address] [place], [place] [phone] 05/16/2024 1:30 PM EST Office Visit Dermatology [facility] [place] [address] [facility] [place] [address] Duane Perez MD [address] [facility] [address] [place], [place] [address] Scheduled Procedures Name Priority Associated Diagnoses Date/Ti [...] and were consensually agreed upon. Care Teams Peripheral Equipment Operator Relationship Specialty Start Date End Date Steffi Zamudio MD [address] [facility] [place] [address] PCP - General Internal Medicine 05/04/11 documented as of this encounter
--- OUTSIDE RECORDS SUMMARY | 2023-07-06 23:14 | External Medical Summary | Summary of Care ---
Author Name Unknown Organization [facility] Address [address] [place] [address] Phone [phone] Care Team Providers Care Roustabout Head Name Role Phone Steffi Zamudio MD Primary Care Provider [phone] Reason for Visit * Reason Onset Date Comments Advice 05/10/2023 Encounter Details Date Type Department Care Team (Late st Contact Info) Description 05/10/2023 Telephone Nutrition & Weight Management, [facility] [address] [place], [place] [phone] Services, Scheduling [address] [place] [address] Advice Allergies Active Allergy Reactions Criticality Noted Date Comments Adhesive Tape Rash 03/23/2021 Band-aides -rash Gluten Rash 07/12/2012 Celiac disease documented as of this encounter (statuses as of 05/11/2023) Medications Medication Sig Dispensed Refills Start Date [...] surgery for weight loss 1000 mcg IM [id number] 08/02/2021 06/04/2023 A ctive documented as of this encounter (statuses as of 05/11/2023) Active Problems Problem Noted Date Diagnosed Date [...] CDH1, CDK4, CDKN1B, CDKN1C, CDKN2A (p14ARF), CDKN2A ([id number]), CEBPA, CHEK2, CTNNA1, DICER1, DIS3L2, EGFR, EPCAM, FH, FLCN, GATA2, GPC3, GREM1, HOXB13, HRAS, KIT, MAX, MEN1, MET, MITF, MLH1, MSH2, MSH3, MSH6, MUTYH, NBN, NF1, NF2, NTHL1, PALB2, PDGFRA, PHOX2B, PMS2, POLD1, POLE, POT1, OQSEQ2N, PTCH1, PTEN, RAD50, RAD51C, RAD51D, RB1, RECQL4, RET, RUNX1, SDHA, SDHAF2, SDHB, SDHC, SDHD, SMAD4, SMARCA4, SMARCB1, SMARCE1, STK11, SUFU, TERC, TERT, VLGS002, TP53, TSC1, TSC2, VHL, WRN, WT1 Status [...] as of this encounter (statuses as of 05/11/2023) Resolved Problems Problem Noted Date Diagnosed Date [...] MFM consult Pt planning repeat c/s at [facility] 1. For patients with previous [...] delivery at 36-37 weeks without amniocentesis per [employer]. Every effort [...] history of myomectomy. Scheduled for 06/25/15 at [facility] History of prior w ith [...] indicate that she had a previous infection. [facility] EFW = 1487 01/10 (<3%) Reviewed the [...] as of this encounter (statuses as of 05/11/2023) Immunizations Name Administration Dates Next Due Pneumococcal [...] encounter Miscellaneous Notes * Telephone Encounter - Greta Soliz OSA - 05/11/2023 1:12 PM EST KURT Silverio called pt and lmm for her to call office to schedule appt before the 06/07/23; however, thereare no openings at this time. Pt is aware as she tried to call in on 05/10/23 as well to schedule an appt. SHAMA Berger 05/11/2023 1:14 PM * Telephone Encounter - Angela Williamson RN [...] 05/23/2023 11:45 AM EST Office Visit Gynecology/Obstetr [facility] [address] [place] [address] Tamiko Baker MD [address] [place] [address] 06/07/2023 3:40 PM EDT Office Visit Nutrition & Weight Management, [facility] [address] [place] [address] Joan Bright PA-C [address] [place] [address] 06/08/2023 7:00 AM EDT Office Visit Non [facility], Operating Room, [facility] [address] [place] [facility] [place] [address] Ash Kendrick MD [address] [place] [address] 06/20/2023 4:30 PM EDT Office Visit Gynecology/Obstetr ics [facility] [address] [place] [address] Tamiko Baker MD [address] [place] [address] 07/05/2023 3:45 PM EDT Imaging Radiology [facility] 1st [facility] [address] [place] [address] 07/12/2023 3:10 PM EDT Nutrition Services Nutrition & Weight Management, [facility] [address] [place] [address] Kinsey Cage RDN [address] [place] [address] 10/05/2023 1:30 PM EDT Office Visit Dermatology [facility] [address] [place] [address] Duane Perez MD [address] [place] [address] 10/25/2023 2:00 PM EDT Office Visit General Internal [facility] [place] [address] [place] [address] Steffi Zamudio MD [address] [place], [place] [address] 03/07/2024 11:00 AM EST Telemedicine Hematology Oncology [facility] [address] [place] [phone] Malignancy, Multidisciplinary Clinic [facility] [address] [place] [address] 05/16/2024 1:30 PM EST Office Visit Dermatology [place] [facility] [place] [address] [place], [place] [address] Duane Perez MD [address] [place], [place] [address] Scheduled Procedures Name Priority Associated Diagnoses Date/Ti [...] and were consensually agreed upon. Care Teams Roustabout Head Relationship Specialty Start Date End Date Steffi Zamudio MD [address] [facility] [place] [address] PCP - General Internal Medicine 05/04/11 documented as of this encounter
--- OUTSIDE RECORDS SUMMARY | 2023-07-06 23:14 | External Medical Summary | Summary of Care ---
Author Name Unknown Organization [facility] Address [address] [place] [address] Phone [phone] Care Team Providers Care Core Paster Name Role Phone Steffi Zamudio MD Primary Care Provider [phone] Reason for Visit * Reason Onset Date Comments Advice 04/30/2023 Encounter Details Date Type Department Care Team (Late st Contact Info) Description 04/30/2023 Telephone Nutrition & Weight Management, 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 Overview: Genetic Testing Completed 08/30/2022: Test Result: POSITIVE Gene: PMS2 Variant: Deletion (Exons 12-14) ClinVarID: None This result is consistent with Jackson syndrome Test Ordered: Multi-Cancer Panel at [facility] (84 genes) Genes Included: AIP, ALK, APC, PATTY, AXIN2, BAP1, BARD1, BLM, BMPR1A, BRCA1, BRCA2, BRIP1, CASR, CDC73, CDH1, CDK4, CDKN1B, CDKN1C, CDKN2A (p14ARF), CDKN2A ([id number]), CEBPA, CHEK2, CTNNA1, DICER1, DIS3L2, EGFR, EPCAM, FH, FLCN, GATA2, GPC3, GREM1, HOXB13, HRAS, KIT, MAX, MEN1, MET, MITF, MLH1, MSH2, MSH3, MSH6, MUTYH, NBN, NF1, NF2, NTHL1, PALB2, PDGFRA, PHOX2B, PMS2, POLD1, POLE, POT1, RNLPE7T, PTCH1, PTEN, RAD50, RAD51C, RAD51D, RB1, RECQL4, RET, RUNX1, SDHA, SDHAF2, SDHB, SDHC, SDHD, SMAD4, SMARCA4, SMARCB1, SMARCE1, STK11, SUFU, TERC, TERT, LRZN414, TP53, TSC1, TSC2, VHL, WRN, WT1 Status [...] as of this encounter (statuses as of 05/04/2023) Resolved Problems Problem Noted Date Diagnosed Date [...] MFM consult Pt planning repeat c/s [place] [facility]. For patients with previous myomectomy involving [...] delivery at 36-37 weeks without amniocentesis per [employer]. Every effort [...] history of myomectomy. Scheduled for 06[place]25/15 [place] [facility] History of prior w ith short cervix, [...] indicate that she had a previous infection. [facility] EFW = 1487 01/10 (<3%) [...] as of this encounter (statuses as of 05/04/2023) Immunizations Name Administration Dates Next Due Pneumococcal [...] encounter Miscellaneous Notes * Telephone Encounter - Selina Camarena OSA - 05/04/2023 3:56 PM EST Pt returning call, no nurse available. Please call her back * Telephone Encounter - Anamika Sarabia RN - 05/04/2023 2:30 PM EST Attempted to reach patient, no answer. LM * Telephone Encounter - Selina Camarena OSA - 05/04/2023 2:24 PM EST Pt calling [...] 05/23/2023 11:45 AM EST Office Visit Gynecology/Obstetr [facility] [address] [place] [address] Tamiko Baker MD [address] [place] [address] 06/07/2023 3:40 PM EDT Office Visit Nutrition & Weight Management, [facility] [address] [place] [address] Joan Bright PA-C [address] [place] [address] 06/08/2023 7:00 AM EDT Office Visit [facility], Operating Room, [facility] [address] [facility] [place] [address] Ash Kendrick MD [address] [place] [address] 06/20/2023 4:30 PM EDT Office Visit Gynecology/Obstetr [facility] [address] [place] [address] Tamiko Baker MD [address] [place] [address] 07/05/2023 3:45 PM EDT Imaging Radiology [facility] 1st [facility] [address] [facility] [place] [address] 07/12/2023 3:10 PM EDT Nutrition Services Nutrition & Weight Management, [facility] [address] [facility] [place] [address] Kinsey Cage, RDN [address] [facility] [place] [address] 10/05/2023 1:30 PM EDT Office Visit Dermatology [facility] [address] [facility] [address] [place] [address] Duane Perez MD [address] [facility] [place] [address] 10/25/2023 2:00 PM EDT Office Visit General Internal Medicine [facility] [place] [address] [facility] [place] [address] Steffi Zamudio MD [address] [facility] [address] [place], [place] [address] 03/07/2024 11:00 AM EST Telemedicine Hematology Oncology [facility] [address] [place] [address] Malignancy, Multidisciplinary Clinic High Risk Gi [address] [place] [address] 05/16/2024 1:30 PM EST Office Visit Dermatology [place] [facility] [place] [address] [place] [address] Duane Perez MD [address] [facility] [place] [address] Scheduled Procedures Name Priority Associated Diagnoses Date/Ti [...] and were consensually agreed upon. Care Teams Core Paster Relationship Specialty Start Date End Date Steffi Zamudio MD [address] [place] [address] [place] [address] PCP - General Internal Medicine 05/04/11 documented as of this encounter
--- OUTSIDE RECORDS SUMMARY | 2023-07-06 23:14 | External Medical Summary | Summary of Care ---
Author Name Unknown Organization [facility] Address [address] [place] [address] Phone [phone] Care Team Providers Care Track Machine Operator Repairer Name Role Phone Steffi Zamudio MD Primary Care Provider [phone] Reason for Visit * Reason Onset Date Comments Advice 04/30/2023 Encounter Details Date Type Department Care Team (Late st Contact Info) Description 04/30/2023 Telephone Nutrition & Weight Management, [facility] [address] [place], [place] [phone] Services, Scheduling [address] [place] [address] Advice Allergies Active Allergy Reactions Criticality Noted [...] surgery for weight loss 1000 mcg IM [id number] 08/02/2021 06/04/2023 A ctive documented as of this encounter (statuses as of 05/08/2023) Active Problems Problem Noted Date Diagnosed Date 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 Overview: Genetic Testing Completed 08/30/2022: Test Result: POSITIVE Gene: PMS2 Variant: Deletion (Exons 12-14) ClinVarID: None This result is consistent with Jackson syndrome Test Ordered: Multi-Cancer Panel at [facility] (84 genes) Genes Included: AIP, ALK, APC, PATTY, AXIN2, BAP1, BARD1, BLM, BMPR1A, BRCA1, BRCA2, BRIP1, CASR, CDC73, CDH1, CDK4, CDKN1B, CDKN1C, CDKN2A (p14ARF), CDKN2A ([id number]), CEBPA, CHEK2, CTNNA1, DICER1, DIS3L2, EGFR, EPCAM, FH, FLCN, GATA2, GPC3, GREM1, HOXB13, HRAS, KIT, MAX, MEN1, MET, MITF, MLH1, MSH2, MSH3, MSH6, MUTYH, NBN, NF1, NF2, NTHL1, PALB2, PDGFRA, PHOX2B, PMS2, POLD1, POLE, POT1, LTJVG6S, PTCH1, PTEN, RAD50, RAD51C, RAD51D, RB1, RECQL4, RET, RUNX1, SDHA, SDHAF2, SDHB, SDHC, SDHD, SMAD4, SMARCA4, SMARCB1, SMARCE1, STK11, SUFU, TERC, TERT, [id number], TP53, TSC1, TSC2, VHL, WRN, WT1 Status [...] MFM consult Pt planning repeat c/s at [facility] 1. For patients with previous myomectomy involving [...] delivery at 36-37 weeks without amniocentesis per [employer]. Every effort [...] history of myomectomy. Scheduled for 06/25/15 at [facility] History of prior w ith short cervix, [...] indicate that she had a previous infection. [facility] EFW = 1487 01/10 (<3%) Reviewed [...] Telephone Encounter - Joan Bright PA-C - 05/08/2023 2:40 PM EST Please call patient The higher dose of wegovy is not appropriate at this time. I would recommend the ozempic 0.5mg as previously discussed. * Telephone Encounter - Angela Williamson RN [...] asking if this can be forwarded to [facility] for review. * Telephone Encounter - Angela Williamson RN - 05/07/2023 2:12 PM EST I left a message for the patient to . * Telephone Encounter - Selina Camarena, SHAMA - 05/04/2023 3:56 PM EST Pt returning [...] 11:45 AM EST Office Visit Gynecology/Obstetr ics [facility] [address] [place] [address] Tamiko Baker MD [address] [place] [address] 06/07/2023 3:40 PM EDT Office Visit Nutrition & Weight Management, [facility] [address] [place] [address] Joan Bright PA-C [address] [place] [address] 06/08/2023 7:00 AM EDT Office Visit [facility], Operating Room, [place] [address] [place] [facility] [place] [address] Ash Kendrick MD [address] [place] [address] 06/20/2023 4:30 PM EDT Office Visit Gynecology/Obstetr ics [facility] [address] [place] [address] Tamiko Baker MD [address] [place] [address] 07/05/2023 3:45 PM EDT Imaging Radiology [facility] 1st Floor, [place] [address] [place] [address] 07/12/2023 3:10 PM EDT Nutrition Services Nutrition & Weight Management, [facility] [address] [place] [address] Kinsey Cage RDN [address] [place] [address] 10/05/2023 1:30 PM EDT Office Visit Dermatology [facility] [place] [address] [facility] [place] [address] Duane Perez MD 200 [facility] [place] [address] 10/25/2023 2:00 PM EDT Office Visit General Internal Medicine [facility] [place] [address] [facility] [place] [address] Steffi Zamudio MD 200 [facility] [place] [address] 03/07/2024 11:00 AM EST Telemedicine Hematology Oncology [facility] [address] [place] [address] Malignancy, Multidisciplinary Clinic High Risk Gi [address] [place], [place] [phone] 05/16/2024 1:30 PM EST Office [facility] [place] [address] [facility] [place] [address] Duane Perez MD [address] [facility] [address] [place], [place] [address] Scheduled Procedures Name Priority Associated Diagnoses Date/Ti [...] and were consensually agreed upon. Care Teams Track Machine Operator Repairer Relationship Specialty Start Date End Date Steffi Zamudio MD [address] [place] [address], [place] [address] PCP - General Internal Medicine 05/04/11 documented as of this encounter
--- OUTSIDE RECORDS SUMMARY | 2023-07-06 23:14 | External Medical Summary | Summary of Care ---
Author Name Unknown Organization [facility] Address [address] [place] [address] Phone [phone] Care Team Providers Care Peer Support Specialist Name Role Phone Steffi Zamudio MD Primary Care Provider [phone] Reason for Visit * Reason Onset Date Comments Advice 05/10/2023 Encounter Details Date Type Department Care Team (Late st Contact Info) Description 05/10/2023 Telephone Nutrition & Weight Management, [facility] [address] [place] [address] Services, Scheduling [address] [place] [address] Advice Allergies Active Allergy Reactions Criticality Noted [...] THE MORNING 30 Tablet 5 04/14/2023 Active Semaglutide(0.25 or 0.5MG/DOS) 2 MG/3ML Solution Pen-injector (Ozempic) Inject 0.5 mg under the skin once a week. 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 Overview: Genetic Testing Completed 08/30/2022: Test Result: POSITIVE Gene: PMS2 Variant: Deletion (Exons 12-14) ClinVarID: None This result is consistent with Jackson syndrome Test Ordered: Multi-Cancer Panel at [facility] (84 genes) Genes Included: AIP, ALK, APC, PATTY, AXIN2, BAP1, BARD1, BLM, BMPR1A, BRCA1, BRCA2, BRIP1, CASR, CDC73, CDH1, CDK4, CDKN1B, CDKN1C, CDKN2A (p14ARF), CDKN2A (s34HZA0i), CEBPA, CHEK2, CTNNA1, DICER1, DIS3L2, EGFR, EPCAM, FH, FLCN, GATA2, GPC3, GREM1, HOXB13, HRAS, KIT, MAX, MEN1, MET, MITF, MLH1, MSH2, MSH3, MSH6, MUTYH, NBN, NF1, NF2, NTHL1, PALB2, PDGFRA, PHOX2B, PMS2, POLD1, POLE, POT1, MCSMN3H, PTCH1, PTEN, RAD50, RAD51C, RAD51D, RB1, RECQL4, RET, RUNX1, SDHA, SDHAF2, SDHB, SDHC, SDHD, SMAD4, SMARCA4, SMARCB1, SMARCE1, STK11, SUFU, TERC, TERT, NZUP937, TP53, TSC1, TSC2, VHL, WRN, WT1 Status [...] MFM consult Pt planning repeat c/s at [facility] 1. For patients with previous myomectomy involving [...] delivery at 36-37 weeks without amniocentesis per [employer]. Every effort [...] history of myomectomy. Scheduled for 06/25/15 at [facility] History of prior w ith short cervix, [...] -completed and normal Urine culture contaminated at [facility], repeat next visit 04/26/2015 Tdap Vaccine [...] indicate that she had a previous infection. [facility] EFW = 1487 01/10 (<3%) Reviewed the [...] as of this encounter Miscellaneous Notes * Addendum Note - Joan Butler PA-C - 05/11/2023 1:51 PM ESTAddended by: JOAN BUTLER on: 05/11/2023 01:51 PM Modules accepted: Orders * Telephone Encounter - Joan Butler PA-C - 05/11/2023 1:43 PM EST I will not continue to prescribe ozempic or wegovy at this time as she is not taking medications asdirected. Ozempic removed from medication list. She is welcome to schedule a follow up but we will not be continuing ozempic or wegovy. Any further discussion will require an appointment. * Telephone Encounter - Greta Soliz OSA [...] 11:45 AM EST Office Visit Gynecology/Obstetr ics [facility] [address] [place] [address] Tamiko Baker MD [address] [place] [address] 06/07/2023 3:40 PM EDT Office Visit Nutrition & Weight Management, [facility] [address] [place] [address] Joan Butler PA-C [address] [place] [address] 06/08/2023 7:00 AM EDT Office Visit Non Nik Outreach, Operating Room, [facility] [address] [place] [address] Ash Kendrick MD [address] [place] [address] 06/20/2023 4:30 PM EDT Office Visit Gynecology/Obstetr [facility] [address] [place] [address] Tamiko Baker MD [address] [place] [address] 07/05/2023 3:45 PM EDT Imaging Radiology [facility] 1st [facility] [address] [place] [address] 07/12/2023 3:10 PM EDT Nutrition Services Nutrition & Weight Management, [facility] 132 [facility] [place] [address] Kinsey Cage RDN [address] [place] [address] 10/05/2023 1:30 PM EDT Office Visit Dermatology [facility] [address] [facility] [place] [address] Duane Perez MD [address] [facility] [place] [address] 10/25/2023 2:00 PM EDT Office Visit General Internal Medicine [facility] [address] [place] [address] Steffi Zamudio MD [facility] [place] [address] 03/07/2024 11:00 AM EST Telemedicine Hematology Oncology [facility] [address] [place] [address] Malignancy, Multidisciplinary Clinic [facility] [address], [place] [id number] 05/16/2024 1:30 PM EST Office Visit Dermatology [facility] [address] [place] [address] Duane Perez MD [address] [place] [address] Scheduled Procedures Name Priority Associated Diagnoses Date/Ti [...] and were consensually agreed upon. Care Teams Peer Support Specialist Relationship Specialty Start Date End Date Steffi Zamudio MD [address] [place] [address], [place] [address] PCP - General Internal Medicine 05/04/11 documented as of this encounter
--- OUTSIDE RECORDS SUMMARY | 2023-07-06 23:14 | External Medical Summary | Summary of Care ---
Author Name Unknown Organization [facility] Address [address] [place] [address] Phone [phone] Care Team Providers Care Blood Typer Name Role Phone Steffi Zamudio MD Primary Care Provider [phone] Reason for Visit * Reason Onset Date Comments Advice 04/30/2023 Encounter Details Date Type Department Care Team (Late st Contact Info) Description 04/30/2023 Telephone Nutrition & Weight Management, [facility] [address] [place], [place] [phone] Services, Scheduling [address] [place] [address] Advice Allergies Active Allergy Reactions Criticality Noted Date Comments Adhesive Tape Rash 03/23/2021 Band-aides -rash Gluten Rash 07/12/2012 Celiac disease documented as of this encounter (statuses as of 05/09/2023) Medications Medication Sig Dispensed Refills Start Date [...] surgery for weight loss 1000 mcg IM [id number] 08/02/2021 06/04/2023 A ctive documented as of this encounter (statuses as of 05/09/2023) Active Problems Problem Noted Date Diagnosed Date 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 Overview: Genetic Testing Completed 08/30/2022: Test Result: POSITIVE Gene: PMS2 Variant: Deletion (Exons 12-14) ClinVarID: None This result is consistent with Jackson syndrome Test Ordered: Multi-Cancer Panel at [facility] (84 genes) Genes Included: AIP, ALK, APC, PATTY, AXIN2, BAP1, BARD1, BLM, BMPR1A, BRCA1, BRCA2, BRIP1, CASR, CDC73, CDH1, CDK4, CDKN1B, CDKN1C, CDKN2A (p14ARF), CDKN2A (j45TWF3h), CEBPA, CHEK2, CTNNA1, DICER1, DIS3L2, EGFR, EPCAM, FH, FLCN, GATA2, GPC3, GREM1, HOXB13, HRAS, KIT, MAX, MEN1, MET, MITF, MLH1, MSH2, MSH3, MSH6, MUTYH, NBN, NF1, NF2, NTHL1, PALB2, PDGFRA, PHOX2B, PMS2, POLD1, POLE, POT1, UTPKB2T, PTCH1, PTEN, RAD50, RAD51C, RAD51D, RB1, RECQL4, RET, RUNX1, SDHA, SDHAF2, SDHB, SDHC, SDHD, SMAD4, SMARCA4, SMARCB1, SMARCE1, STK11, SUFU, TERC, TERT, RUJR475, TP53, TSC1, TSC2, VHL, WRN, WT1 Status [...] as of this encounter (statuses as of 05/09/2023) Resolved Problems Problem Noted Date Diagnosed Date [...] consult Pt planning repeat c[place] [facility]. For patients with previous myomectomy involving [...] delivery at 36-37 weeks without amniocentesis per [employer]. Every effort [...] of myomectomy. Scheduled for 06/25/15 at [facility] History of prior w ith short cervix, [...] indicate that she had a previous infection. [facility] EFW = 1487 01/10 (<3%) Reviewed [...] as of this encounter (statuses as of 05/09/2023) Immunizations Name Administration Dates Next Due Pneumococcal [...] Telephone Encounter - Joan Bright PA-C - 05/09/2023 3:41 PM EST Must be in clinic as we need an accurate weight * Telephone Encounter - Jose Hall LPN - 05/09/2023 2:23 PM EST Pt would like to see if she can be seen by Joan sooner to discuss this in more detail. Scheduling please assist Patient was informed and voiced understanding regarding all other information. * Telephone Encounter - Joan Bright PA-C [...] asking if this can be forwarded to [facility] for review. * Telephone Encounter - Angela [...] answer. LM * Telephone Encounter - Selina Camraena OSA - 05/04/2023 2:24 PM EST Pt calling again and has questions regarding medications. Please call her back. * Telephone Encounter - Antonia Nieves OSA - 04/30/2023 1:34 PM EST Pt scheduled on 07/12/23 with Kinsey Niles * Telephone Encounter - Joan Bright PA-C [...] 11:45 AM EST Office Visit Gynecology/Obstetr ics [facility] [address] [address] Tamiko Baker MD [address] [place] [address] 06/07/2023 3:40 PM EDT Office Visit Nutrition & Weight Management, [facility] [address] [place] [place] [address] Joan Bright PA-C [address] [place] [address] 06/08/2023 7:00 AM EDT Office Visit Non [facility], Operating Room, [facility] [address] [place] [facility] [place] [address] Ash Kendrick MD [address] [place] [address] 06/20/2023 4:30 PM EDT Office Visit Gynecology/Obstetr ics [facility] 132 [place] [address] Tamiko Baker MD 132 [facility] [place] [address] 07/05/2023 3:45 PM EDT Imaging Radiology [facility] 1st Floor, [place] [address] [place] [address] 07/12/2023 3:10 PM EDT Nutrition Services Nutrition & Weight Management, [facility] [address] [place] [address] Kinsey Cage RDN 132 [place] [address] 10/05/2023 1:30 PM EDT Office Visit Dermatology [facility] [address] [place] [address] Duane Perez MD 200 [facility] [place] [address] 10/25/2023 2:00 PM EDT Office Visit General Internal Medicine [facility] [address] [place] [address] Steffi Zamudio MD 200 [facility] [place] [address] 03/07/2024 11:00 AM EST Telemedicine Hematology [facility] [place] [address] [place] [address] Malignancy, Multidisciplinary Clinic High Risk Gi [address] [place], [place] [address] 05/16/2024 1:30 PM EST Office Visit Dermatology [facility] [address] [place] [address] Duane Perez MD [address] [place] [address] Scheduled Procedures Name Priority Associated Diagnoses Date/Ti [...] and were consensually agreed upon. Care Teams Blood Typer Relationship Specialty Start Date End Date Steffi Zamudio MD 200 [place] [address] PCP - General Internal Medicine 05/04/11 documented as of this encounter
--- OUTSIDE RECORDS SUMMARY | 2023-07-06 23:14 | External Medical Summary | Summary of Care ---
Author Name Unknown Organization [facility] Address [address] [place] [address] Phone [phone] Care Team Providers Care Mitigation Supervisor Name Role Phone Steffi Zamudio MD Primary Care Provider [phone] Reason for Visit * Reason Onset Date Comments Advice 04/30/2023 Encounter Details Date Type Department Care Team (Late st Contact Info) Description 04/30/2023 Telephone Nutrition & Weight Management, [facility] [address] [place], [place] [phone] Services, Scheduling [address] [place] [address] Advice Allergies Active Allergy Reactions Criticality Noted Date Comments Adhesive Tape Rash 03/23/2021 Band-aides -rash Gluten Rash 07/12/2012 Celiac disease documented as of this encounter (statuses as of 05/07/2023) Medications Medication Sig Dispensed Refills Start Date [...] surgery for weight loss 1000 mcg IM [id number] 08/02/2021 06/04/2023 A ctive documented as of this encounter (statuses as of 05/07/2023) Active Problems Problem Noted Date Diagnosed Date 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 Overview: Genetic Testing Completed 08/30/2022: Test Result: POSITIVE Gene: PMS2 Variant: Deletion (Exons 12-14) ClinVarID: None 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 Test Ordered: Multi-Cancer Panel at [facility] (84 genes) Genes Included: AIP, ALK, APC, PATTY, AXIN2, BAP1, BARD1, BLM, BMPR1A, BRCA1, BRCA2, BRIP1, CASR, CDC73, CDH1, CDK4, CDKN1B, CDKN1C, CDKN2A (p14ARF), CDKN2A (a02SBM8m), CEBPA, CHEK2, CTNNA1, DICER1, DIS3L2, EGFR, EPCAM, FH, FLCN, GATA2, GPC3, GREM1, HOXB13, HRAS, KIT, MAX, MEN1, MET, MITF, MLH1, MSH2, MSH3, MSH6, MUTYH, NBN, NF1, NF2, NTHL1, PALB2, PDGFRA, PHOX2B, PMS2, POLD1, POLE, POT1, WBQPI8V, PTCH1, PTEN, RAD50, RAD51C, RAD51D, RB1, RECQL4, RET, RUNX1, SDHA, SDHAF2, SDHB, SDHC, SDHD, SMAD4, SMARCA4, SMARCB1, SMARCE1, STK11, SUFU, TERC, TERT, [id number], TP53, TSC1, TSC2, VHL, WRN, WT1 Status [...] as of this encounter (statuses as of 05/07/2023) Resolved Problems Problem Noted Date Diagnosed Date [...] MFM consult Pt planning repeat c/s at [facility] 1. For patients with [...] delivery at 36-37 weeks without amniocentesis per [employer]. Every effort [...] history of myomectomy. Scheduled for 06/25/15 at [facility] History of prior w [...] indicate that she had a previous infection. [facility] EFW = 1487 01/10 (<3%) [...] as of this encounter (statuses as of 05/07/2023) Immunizations Name Administration Dates Next Due Pneumococcal [...] 05/23/2023 11:45 AM EST Office Visit Gynecology/Obstetr [facility] [address] [place] [address] Tamiko Baker MD [address] [place] [address] 06/07/2023 3:40 PM EDT Office Visit Nutrition & Weight Management, [facility] [address] [place] [address] [address] Joan Bright PA-C [address] [place] [address] 06/08/2023 7:00 AM EDT Office Visit Non [facility], Operating Room, [facility] [address] [facility] [place] [address] Ash Kendrick MD [address] [place] [address] 06/20/2023 4:30 PM EDT Office Visit Gynecology/Obstetr [facility] 132 [facility] [place] [address] Tamiko Baker MD 132 [facility] [place] [address] 07/05/2023 3:45 PM EDT Imaging [facility] [address] [facility] [place] [address] 07/12/2023 3:10 PM EDT Nutrition Services Nutrition & Weight Management, [facility] [address] [facility] [place] [address] Kinsey Cage RDN 132 [facility] [place] [address] 10/05/2023 1:30 PM EDT Office Visit Dermatology [facility] [address] [place] [address] Duane Perez MD 200 [facility] [place] [address] 10/25/2023 2:00 PM EDT Office Visit General Internal Medicine [facility] [address] [place] [address] Steffi Zamudio MD 200 [facility] [place] [address] 03/07/2024 11:00 AM EST Telemedicine Hematology Oncology [facility] [address] [place] [address] Malignancy, Multidisciplinary Clinic High Risk Gi [address] [place] [address] 05/16/2024 1:30 PM EST Office Visit Dermatology [facility] [address] [place] [address] Duane Perez MD 200 [facility] [place] [address] Scheduled Procedures Name Priority Associated Diagnoses Date/Ti [...] and were consensually agreed upon. Care Teams Mitigation Supervisor Relationship Specialty Start Date End Date Steffi Zamudio MD [address] [place] [address], [place] [address] PCP - General Internal Medicine 05/04/11 documented as of this encounter
--- OUTSIDE RECORDS SUMMARY | 2023-07-06 23:14 | External Medical Summary | Summary of Care ---
Author Name Unknown Organization [facility] Address [address] [place] [address] Phone [phone] Care Team Providers Care Pr Manager Name Role Phone Steffi Zamudio MD Primary Care Provider Reason for Visit * Reason Onset Date Comments Advice 04/30/2023 Encounter Details Date Type Department Care Team (Late st Contact Info) Description 04/30/2023 Telephone Nutrition & Weight Management, [facility] [address] [place], [place] [phone] Services, Scheduling [address] [place] [address] Advice Allergies Active Allergy Reactions Criticality Noted [...] surgery for weight loss 1000 mcg IM [id number] 08/02/2021 06/04/2023 A ctive documented as of this encounter (statuses as of 05/11/2023) Active Problems Problem Noted Date Diagnosed Date 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 Overview: Genetic Testing Completed 08/30/2022: Test Result: POSITIVE Gene: PMS2 Variant: Deletion (Exons 12-14) ClinVarID: None This result is consistent with Jackson syndrome Test Ordered: Multi-Cancer Panel at [facility] (84 genes) Genes Included: AIP, ALK, APC, PATTY, AXIN2, BAP1, BARD1, BLM, BMPR1A, BRCA1, BRCA2, BRIP1, CASR, CDC73, CDH1, CDK4, CDKN1B, CDKN1C, CDKN2A (p14ARF), CDKN2A (j83VDV3l), CEBPA, CHEK2, CTNNA1, DICER1, DIS3L2, EGFR, EPCAM, FH, FLCN, GATA2, GPC3, GREM1, HOXB13, HRAS, KIT, MAX, MEN1, MET, MITF, MLH1, MSH2, MSH3, MSH6, MUTYH, NBN, NF1, NF2, NTHL1, PALB2, PDGFRA, PHOX2B, PMS2, POLD1, POLE, POT1, MRLWN2P, PTCH1, PTEN, RAD50, RAD51C, RAD51D, RB1, RECQL4, RET, RUNX1, SDHA, SDHAF2, SDHB, SDHC, SDHD, SMAD4, SMARCA4, SMARCB1, SMARCE1, STK11, SUFU, TERC, TERT, [id number], TP53, TSC1, TSC2, VHL, WRN, WT1 Status [...] consult Pt planning repeat c/s at [facility]. For patients with previous myomectomy involving [...] of myomectomy. Scheduled for 06/25/15 at [facility] History of prior w ith short cervix, [...] indicate that she had a previous infection. [facility] EFW = 1487 01/10 (<3%) [...] encounter Miscellaneous Notes * Telephone Encounter - Jean Claude Ragland OSA - 05/11/2023 12:03 PM EST LMcell asking pt to return call to schedule an inperson appt arminda/ [facility] to discuss medication. * Telephone Encounter - Joan Bright PA-C [...] asking if this can be forwarded to [facility] for review. * Telephone Encounter - [...] 11:45 AM EST Office Visit Gynecology/Obstetr ics [facility] [address] [address] Tamiko Baker MD [address] [place] [address] 06/07/2023 3:40 PM EDT Office Visit Nutrition & Weight Management, [facility] [address] [address] Joan Bright PA-C [address] [place] [address] 06/08/2023 7:00 AM EDT Office Visit Non [facility], Operating Room, [facility] [address] [facility], [place] [address] Ash Kendrick MD [address] [place] [address] 06/20/2023 4:30 PM EDT Office Visit Gynecology/Obstetr ics [facility] [address] [facility] [place] [address] Tamiko Baker MD [address] [place] [address] 07/05/2023 3:45 PM EDT Imaging Radiology [facility] 1st [facility] 132 [facility] [place] [address] 07/12/2023 3:10 PM EDT Nutrition Services Nutrition & Weight Management, [facility] [place] [address] Kinsey Cage RDN 132 [facility] [place] [address] 10/05/2023 1:30 PM EDT Office Visit Dermatology [facility] [address] [place] [address] Duane Perez MD [address] [place] [address] 10/25/2023 2:00 PM EDT Office Visit General Internal Medicine [facility] [address] [place] [address] Steffi Zamudio MD [address] [place] [address] 03/07/2024 11:00 AM EST Telemedicine Hematology Oncology [facility] [address] [address] Malignancy, Multidisciplinary Clinic High Risk Gi [address] [place], [place] [address] 05/16/2024 1:30 PM EST Office Visit Dermatology [facility] 200 [facility] [place] [address] Duane Perez MD 200 [facility] [place] [address] Scheduled Procedures Name Priority Associated Diagnoses Date/Ti [...] and were consensually agreed upon. Care Teams Pr Manager Relationship Specialty Start Date End Date Steffi Zamudio MD 200 [place] [address] PCP - General Internal Medicine 05/04/11 documented as of this encounter
--- OUTSIDE RECORDS SUMMARY | 2023-07-06 23:14 | External Medical Summary | Summary of Care ---
Author Name Unknown Organization [facility] Address [address] [place] [address] Phone [phone] Care Team Providers Care Bobbin Disker Name Role Phone Steffi Zamudio MD Primary Care Provider [phone] Reason for Visit * Reason Onset Date Comments Advice 04/30/2023 Encounter Details Date Type Department Care Team (Late st Contact Info) Description 04/30/2023 Telephone Nutrition & Weight Management, [facility] [address] [place], [place] [phone] Services, Scheduling [address] [place] [address] Advice Allergies Active Allergy Reactions Criticality Noted [...] surgery for weight loss 1000 mcg IM [id number] 08/02/2021 06/04/2023 A ctive documented as of this encounter (statuses as of 05/04/2023) Active Problems Problem Noted Date Diagnosed Date 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 Overview: Genetic Testing Completed 08/30/2022: Test Result: POSITIVE Gene: PMS2 Variant: Deletion (Exons 12-14) ClinVarID: None This result is consistent with Jackson syndrome Test Ordered: Multi-Cancer Panel at [facility] (84 genes) Genes Included: AIP, ALK, APC, PATTY, AXIN2, BAP1, BARD1, BLM, BMPR1A, BRCA1, BRCA2, BRIP1, CASR, CDC73, CDH1, CDK4, CDKN1B, CDKN1C, CDKN2A (p14ARF), CDKN2A ([id number]), CEBPA, CHEK2, CTNNA1, DICER1, DIS3L2, EGFR, EPCAM, FH, FLCN, GATA2, GPC3, GREM1, HOXB13, HRAS, KIT, MAX, MEN1, MET, MITF, MLH1, MSH2, MSH3, MSH6, MUTYH, NBN, NF1, NF2, NTHL1, PALB2, PDGFRA, PHOX2B, PMS2, POLD1, POLE, POT1, STPOM1X, PTCH1, PTEN, RAD50, RAD51C, RAD51D, RB1, RECQL4, RET, RUNX1, SDHA, SDHAF2, SDHB, SDHC, SDHD, SMAD4, SMARCA4, SMARCB1, SMARCE1, STK11, SUFU, TERC, TERT, EOSJ093, TP53, TSC1, TSC2, VHL, WRN, WT1 Status [...] MFM consult Pt planning repeat c/s at [facility] 1. For patients with previous myomectomy involving [...] delivery at 36-37 weeks without amniocentesis per [employer]. Every effort [...] history of myomectomy. Scheduled for 06/25/15 at [facility] History of prior w ith short cervix, [...] indicate that she had a previous infection. [facility] EFW = 1487 01/10 (<3%) [...] encounter Miscellaneous Notes * Telephone Encounter - Anamika Sarabia RN [...] 11:45 AM EST Office Visit Gynecology/Obstetr ics [facility] [address] [place] [address] Tamiko Baker MD [address] [place] [address] 06/07/2023 3:40 PM EDT Office Visit Nutrition & Weight Management, [facility] [address] [place] [address] Joan Bright PA-C [address] [place] [address] 06/08/2023 7:00 AM EDT Office Visit Non [facility], Operating Room, [place] [address] [facility] [place] [address] Ash Kendrick MD [address] [place] [address] 06/20/2023 4:30 PM EDT Office Visit Gynecology/Obstetr ics [facility] [address] [place] [address] Tamiko Baker MD [address] [place] [address] 07/05/2023 3:45 PM EDT Imaging Radiology [facility] 1st Floor, [place] [address] [place] [address] 07/12/2023 3:10 PM EDT Nutrition Services Nutrition & Weight Management, [facility] [address] [place] [address] Kinsey Cage, RDN [address] [place] [address] 10/05/2023 1:30 PM EDT Office Visit Dermatology [facility] [address] [place] [address] Duane Perez MD [address] [facility] [place] [address] 10/25/2023 2:00 PM EDT Office Visit General Internal Medicine [facility] [address] [place] [address] Steffi Zamudio MD [address] [facility] [place] [address] 03/07/2024 11:00 AM EST Telemedicine Hematology Oncology [facility] [address] [place] [address] Malignancy, Multidisciplinary Clinic [facility] [address] [place] [address] 05/16/2024 1:30 PM EST Office Visit Dermatology [facility] [address] [place] [address] Daune Perez MD [address] [place], [place] [address] Scheduled Procedures Name Priority Associated Diagnoses Date/Ti [...] and were consensually agreed upon. Care Teams Bobbin Disker Relationship Specialty Start Date End Date Steffi Zamudio MD [address] [place] [address] PCP - General Internal Medicine 05/04/11 documented as of this encounter
--- OUTSIDE RECORDS SUMMARY | 2023-07-06 23:14 | External Medical Summary | Summary of Care ---
Author Name Unknown Organization [facility] Address [address] [place] [address] Phone [phone] Care Team Providers Care Stretch Machine Operator Name Role Phone Steffi Zamudio MD Primary Care Provider [phone] Reason for Visit * Reason Onset Date Comments Advice 04/30/2023 Encounter Details Date Type Department Care Team (Late st Contact Info) Description 04/30/2023 Telephone Nutrition & Weight Management, [facility] [address] [place], [place] [phone] Services, Scheduling [address] [place] [address] Advice Allergies Active Allergy Reactions Criticality Noted [...] surgery for weight loss 1000 mcg IM [id number] 08/02/2021 06/04/2023 A ctive documented as of this encounter (statuses as of 05/04/2023) Active Problems Problem Noted Date Diagnosed Date 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 Overview: Genetic Testing Completed 08/30/2022: Test Result: POSITIVE Gene: PMS2 Variant: Deletion (Exons 12-14) ClinVarID: None This result is consistent with Jackson syndrome Test Ordered: Multi-Cancer Panel at [facility] (84 genes) Genes Included: AIP, ALK, APC, PATTY, AXIN2, BAP1, BARD1, BLM, BMPR1A, BRCA1, BRCA2, BRIP1, CASR, CDC73, CDH1, CDK4, CDKN1B, CDKN1C, CDKN2A (p14ARF), CDKN2A ([id number]), CEBPA, CHEK2, CTNNA1, DICER1, DIS3L2, EGFR, EPCAM, FH, FLCN, GATA2, GPC3, GREM1, HOXB13, HRAS, KIT, MAX, MEN1, MET, MITF, MLH1, MSH2, MSH3, MSH6, MUTYH, NBN, NF1, NF2, NTHL1, PALB2, PDGFRA, PHOX2B, PMS2, POLD1, POLE, POT1, [id number], PTCH1, PTEN, RAD50, RAD51C, RAD51D, RB1, RECQL4, RET, RUNX1, SDHA, SDHAF2, SDHB, SDHC, SDHD, SMAD4, SMARCA4, SMARCB1, SMARCE1, STK11, SUFU, TERC, TERT, [id number], TP53, TSC1, TSC2, VHL, WRN, WT1 Status [...] consult Pt planning repeat c/s at [facility] 1. For [...] 36-37 weeks without amniocentesis per [employer]. Every effort [...] of myomectomy. Scheduled for 06/25/15 at [facility] History of [...] indicate that she had a previous infection. [facility] EFW = 1487 01/10 (<3%) [...] 11:45 AM EST Office Visit Gynecology/Obstetr ics [facility] [address] [place] [address] Tamiko Baker MD [address] [place] [address] 06/07/2023 3:40 PM EDT Office Visit Nutrition & Weight Management, [facility] [address] [place] [address] Joan Bright PA-C [address] [place] [address] 06/08/2023 7:00 AM EDT Office Visit [facility], Operating Room, [address] [place] [address] Ash Kendrick MD [address] [place] [address] 06/20/2023 4:30 PM EDT Office Visit Gynecology/Obstetr [facility] [address] [place] [address] Tamiko Baker MD [address] [place] [address] 07/05/2023 3:45 PM EDT Imaging Radiology [facility] 1st Floor, [place] [address] [place] [address] 07/12/2023 3:10 PM EDT Nutrition Services Nutrition & Weight Management, [facility] [address] [place] [address] Kinsey Cage RDN [address] [place] [address] 10/05/2023 1:30 PM EDT Office Visit Dermatology [facility] 200 [facility] [place] [address] Duane Perez MD 200 [facility] [place] [address] 10/25/2023 2:00 PM EDT Office Visit General Internal Medicine [facility] [place] [address] [facility] [place] [address] Steffi Zamudio MD [address] [facility] [address] [place], [place] [address] 03/07/2024 11:00 AM EST Telemedicine Hematology Oncology [facility] [place] [address] [place] [address] Malignancy, Multidisciplinary Clinic High Risk Gi [address], [place] [address] 05/16/2024 1:30 PM EST Office Visit Dermatology [facility] [place] 200 [facility] [place] [address] Duane Perez MD 200 [facility] [place] [address] Scheduled Procedures Name Priority Associated Diagnoses Date/Ti [...] and were consensually agreed upon. Care Teams Stretch Machine Operator Relationship Specialty Start Date End Date Steffi Zamudio MD 200 [facility] [place] [address] PCP - General Internal Medicine 05/04/11 documented as of this encounter
--- OUTSIDE RECORDS SUMMARY | 2023-07-06 23:14 | External Medical Summary | Summary of Care ---
Author Name Unknown Organization [facility] Address [address] [place] [address] Phone [phone] Care Team Providers Care Physician Liaison Name Role Phone Steffi Zamudio MD Primary Care Provider [phone] Reason for Visit * Reason Onset Date Comments Advice 04/30/2023 Encounter Details Date Type Department Care Team (Late st Contact Info) Description 04/30/2023 Telephone Nutrition & Weight Management, 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 Overview: Genetic Testing Completed 08/30/2022: Test Result: POSITIVE Gene: PMS2 Variant: Deletion (Exons 12-14) ClinVarID: None This result is consistent with Jackson syndrome Test Ordered: Multi-Cancer Panel at [facility] (84 genes) Genes Included: AIP, ALK, APC, PATTY, AXIN2, BAP1, BARD1, BLM, BMPR1A, BRCA1, BRCA2, BRIP1, CASR, CDC73, CDH1, CDK4, CDKN1B, CDKN1C, CDKN2A (p14ARF), CDKN2A (u07ANC0w), CEBPA, CHEK2, CTNNA1, DICER1, DIS3L2, EGFR, EPCAM, FH, FLCN, GATA2, GPC3, GREM1, HOXB13, HRAS, KIT, MAX, MEN1, MET, MITF, MLH1, MSH2, MSH3, MSH6, MUTYH, NBN, NF1, NF2, NTHL1, PALB2, PDGFRA, PHOX2B, PMS2, POLD1, POLE, POT1, NVLWY2E, PTCH1, PTEN, RAD50, RAD51C, RAD51D, RB1, RECQL4, RET, RUNX1, SDHA, SDHAF2, SDHB, SDHC, SDHD, SMAD4, SMARCA4, SMARCB1, SMARCE1, STK11, SUFU, TERC, TERT, [id number], TP53, TSC1, TSC2, VHL, WRN, WT1 Status [...] MFM consult Pt planning repeat c/s at [facility] 1. For patients with previous [...] history of myomectomy. Scheduled for 06/25/15 at [facility] History of prior w ith [...] indicate that she had a previous infection. [facility] EFW = 1487 01/10 (<3%) [...] encounter Miscellaneous Notes * Telephone Encounter - Jose Hall LPN [...] asking if this can be forwarded to [facility] for review. * Telephone Encounter - Angela [...] 05/23/2023 11:45 AM EST Office Visit Gynecology/Obstetr [facility] [address] [place] [address] Tamiko Baker MD [address] [place] [address] 06/07/2023 3:40 PM EDT Office Visit Nutrition & Weight Management, [facility] [address] [place] [address] Joan Bright PA-C [address] [place] [address] 06/08/2023 7:00 AM EDT Office Visit [facility], Operating Room, [facility] [address] [facility] [place] [address] Ash Kendrick MD [address] [place] [address] 06/20/2023 4:30 PM EDT Office Visit Gynecology/Obstetr [facility] [address] [place] [address] Tamiko Baker MD [address] [place] [address] 07/05/2023 3:45 PM EDT Imaging [facility] [address] [place] [address] 07/12/2023 3:10 PM EDT Nutrition Services Nutrition & Weight Management, [facility] 132 [facility] [place] [address] Kinsey Cage RDN 132 [facility] [place] [address] 10/05/2023 1:30 PM EDT Office Visit Dermatology [facility] [place] [address] [facility] [place] [address] Duane Perez MD 200 [facility] [place] [address] 10/25/2023 2:00 PM EDT Office Visit General Internal Medicine [place] [address] [place] [address] Steffi Zamudio MD 200 [facility] [place] [address] 03/07/2024 11:00 AM EST Telemedicine Hematology Oncology [facility] [address] [place] [address] Malignancy, Multidisciplinary Clinic High Risk Gi [address] [place], [place] [address] 05/16/2024 1:30 PM EST Office Visit Dermatology [facility] [place] [address] [place] [address] Duane Perez MD [address] [facility] [place] [address] Scheduled Procedures Name Priority Associated Diagnoses Date/Ti [...] and were consensually agreed upon. Care Teams Physician Liaison Relationship Specialty Start Date End Date Steffi Zamudio MD 200 [place] [address] PCP - General Internal Medicine 05/04/11 documented as of this encounter
--- OUTSIDE RECORDS SUMMARY | 2023-07-06 23:15 | External Medical Summary | Summary of Care ---
Author Name Unknown Organization [facility] Address [address] [place] [address] Phone [phone] Care Team Providers Care Hide Or Skin Buffer Name Role Phone Steffi Zamudio MD Primary Care Provider [phone] Reason for Visit * Reason Onset Date Comments Precert Denied 04/10/2023 DAPSON Encounter Details Date Type Department Care Team (Late st Contact Info) Description 04/10/2023 Telephone Dermatology [facility] [place] Choudhary [address] [place] [address] Duane Perez MD [address] [place] [address] Precert Denied (DAPSON) Allergies Active Allergy Reactions Criticality Noted Date Comments Adhesive Tape Rash 03/23/2021 Band-aides -rash Gluten Rash 07/12/2012 Celiac disease documented as of this encounter (statuses as of 04/13/2023) Medications Medication Sig Dispensed Refills Start Date End Date Status Hydroquinone 4 % External Cream Apply to brown spots on face 2x per day for 2 months 28.35 g 1 02/01/2021 Active Vitamin D 50 MCG (1999) Oral CapsuleIndications :Status following gastric banding surgery for weight loss Take by mouth 2,000 Units in the morning. 0 06/02/2021 Active LORazepam 0.5 MG Oral Tablet (Ativan)Indication s:Depression with anxiety Take by mouth 1 Tablet 2 times a day as needed for Anxiety. 20 Tablet 0 06/03/2021 Active Viactiv Calcium Immune 650-20-5.5 MG-MCG-MG Oral Tablet Chewable (Calcium-Cholecalc iferol-Zinc) Take by mouth 2 Tablets daily . 0 Active Womens One Daily Oral Tablet Take by mouth 2 Gum Dosing Unit daily . 0 Active Cyclobenzaprine HCl 5 MG Oral Tablet (Flexeril)Indicati ons:Neck pain TAKE 1 TABLET BY MOUTH TWICE DAILY NEEDED FOR MUSCLE SPASM 30 Tablet 2 08/29/2021 Active Additional Information Patient not taking.Reported on 02/20/2023 Calcium Carb-Cholecalcifer ol 600-400 MG-UNIT Oral Tablet 1 Tablet . 0 05/30/2021 Active Adapalene 0.1 % External Gel (Differin) Apply topically to affected area at bedtime . Apply to face and chest and thighs 90 g 11 10/21/2021 Active metroNIDAZOLE 0.75 % External Lotion APPLY TOPICALLY TO FACE TWICE DAILY 59 mL 5 04/17/2022 Active Zinc 50 MG Oral CapsuleIndications :Intestinal postoperative nonabsorption Take 1 Capsule by mouth in the morning. 0 Active Iron 325 (65 Fe) MG Oral TabletIndications: Status following gastric banding surgery for weight loss,Iron deficiency anemia secondary to inadequate dietary iron intake Take 1 tablet by mouth once daily 90 Tablet 2 08/16/2022 Active buPROPion HCl ER (XL) 150 MG Oral Tablet Extended Release 24 Hour (Wellbutrin XL)Indications:Mix ed emotional features as adjustment reaction Take 1 Tablet by mouth in the morning. 30 Tablet 5 10/19/2022 Active Bariatric Multivitamins/Iron Oral Capsule Take by mouth. 0 Active Bariatric Fusion Oral Tablet Chewable Take by mouth. Calcium chew 0 Active Dapsone 5 % External GelIndications:Acn e vulgaris Apply to acne on face and chest 60 g 2 04/09/2023 Active Wegovy 0.5 MG/0.5ML Subcutaneous Solution Auto-injector (Semaglutide-Weigh t Management) Inject 0.5 mg under the skin once a week. 2 mL 1 03/01/2023 04/11/19 24 Discontinued Wegovy 0.25 MG/0.5ML Subcutaneous Solution Auto-injector (Semaglutide-Weigh t Management) Inject 0.25 mg under the skin once a week. 2 mL 0 03/22/2023 04/11/19 24 Discontinued Wegovy 1 MG/0.5ML Subcutaneous Solution Auto-injector (Semaglutide-Weigh t Management) Inject 1 mg under the skin once a week. 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 Overview: Genetic Testing Completed 08/30/2022: Test Result: POSITIVE Gene: PMS2 Variant: Deletion (Exons 12-14) ClinVarID: None This result is consistent with Jackson syndrome Test Ordered: Multi-Cancer Panel at [facility] (84 genes) Genes Included: AIP, ALK, APC, PATTY, AXIN2, BAP1, BARD1, BLM, BMPR1A, BRCA1, BRCA2, BRIP1, CASR, CDC73, CDH1, CDK4, CDKN1B, CDKN1C, CDKN2A (p14ARF), CDKN2A (w41EET2u), CEBPA, CHEK2, CTNNA1, DICER1, DIS3L2, EGFR, EPCAM, FH, FLCN, GATA2, GPC3, GREM1, HOXB13, HRAS, KIT, MAX, MEN1, MET, MITF, MLH1, MSH2, MSH3, MSH6, MUTYH, NBN, NF1, NF2, NTHL1, PALB2, PDGFRA, PHOX2B, PMS2, POLD1, POLE, POT1, LLPBL9S, PTCH1, PTEN, RAD50, RAD51C, RAD51D, RB1, RECQL4, RET, RUNX1, SDHA, SDHAF2, SDHB, SDHC, SDHD, SMAD4, SMARCA4, SMARCB1, SMARCE1, STK11, SUFU, TERC, TERT, [id number], TP53, TSC1, TSC2, VHL, WRN, WT1 Status [...] as of this encounter (statuses as of 04/13/2023) Resolved Problems Problem Noted Date Diagnosed Date [...] delivery at 36-37 weeks without amniocentesis per [employer]. Every effort [...] as of this encounter (statuses as of 04/13/2023) Immunizations Name Administration Dates Next Due Pneumococcal [...] alcohol) denies during PHQ-2 Answer Date Recorded PHQ-2 Score 0 09/16/2019 Hunger Vital Sign Answer Date Recorded Within [...] encounter Miscellaneous Notes * Telephone Encounter - Duane Perez MD - 04/13/2023 11:23 AM EST Called patient to discuss alternatives. No answer, LMOM to return call * Telephone Encounter - Ashtyn Link CPhT - 04/12/2023 4:12 PM EST Patients insurance would like to inform the office that Dapson 5% gel is denied because insurance wants pt to try 2 other preferred Rx's, Retin-A, Adapalene- Benzoyl Peroxide. They will fax this info to the office, please review and resubmit if appropriate. Thank you, Ashtyn Link Type Soldering Machine Tender Spazio[employer]ati 04/12/2023, 4:12 PM * Telephone Encounter - Amy Ellis LPN - 04/10/2023 12:54 PM EST Dermatology Pre-Cert Request Medication/Disease State Information: Medication: Dapson 5% gel Diagnosis (including ICD-10): Acne - Acne vulgaris L70.0 Site of Care: specialty medication - route to [id number]. Referral to pharmacist for: No Pharmacist involvement needed See corresponding visit note(s) for additional supporting clinical information. Office Information: Prescriber: Duane Perez MD documented in this encounter Plan of Treatment Upcoming Encounters Date Type Department Care Team (Late st Contact Info) Description 04/26/2023 3:20 PM EST Office Visit General Internal Medicine [facility] [address] [facility] [place] [address] Stefif Zamudio MD 200 [place] [address] 06/07/2023 3:40 PM EDT Office Visit Nutrition & Weight Management, [facility] [address] [place] [address] [address] Joan Bright PA-C [address] [place] [address] 07/12/2023 3:10 PM EDT Nutrition Services Nutrition & Weight Management, [facility] [address] [place] [address] Kinsey Cage RDN [address] [place] [address] 10/05/2023 1:30 PM EDT Office Visit Dermatology [facility] [address] [facility] [place] [address] Duane Perez MD 200 [facility] [place] [address] 03/07/2024 11:00 AM EST Telemedicine Hematology Oncology [facility] [address] [place] [address] Malignancy, Multidisciplinary Clinic High Risk Gi [address] [place] [address] 05/16/2024 1:30 PM EST Office Visit Dermatology [facility] [place] [address] [facility] [place] [address] Duane Perez MD 200 [facility] [place] [address] Scheduled Procedures Name Priority Associated Diagnoses Date/Ti me COLONOSCOPY FLEXIBLE PROXIMAL DIAGNOSTIC Recall PMS2-related Jackson syndrome (HNPCC4) ESOPHAGOGASTRODUODENOSCOPY ( EGD), FLEXIBLE, TRANSORAL, DIAGNOSTIC Recall PMS2-related Jackson syndrome (HNPCC4) Health Maintenance Due Date Last Done Comments Hepatitis B (1 of 3 - 3-dose series) 1980 COVID-19 Vaccine (#1) 05/27/1981 Hepatitis C Screening 1998 HPV/Co-Test 2010 Depression Screening 09/15/2020 09/16/2019 Influenza Vaccine (FLU shot) (#1) 2022 02/26/2020, 01/22/2019, 01/06/2014, Additional history exists Mammogram 06/16/2023 06/15/2022, 06/09/2021 Cervical Cancer Screening 05/13/2024 Pap Smear 05/13/2024 [...] and were consensually agreed upon. Care Teams Hide Or Skin Buffer Relationship Specialty Start Date End Date Steffi Zamudio MD 200 [place] [address] PCP - General Internal Medicine 05/04/11 documented as of this encounter
--- OUTSIDE RECORDS SUMMARY | 2023-07-06 23:15 | External Medical Summary | Summary of Care ---
Author Name Unknown Organization [facility] Address [address] [facility] [address] Phone [phone] Care Team Providers Care Special Warfare Operator Name Role Phone Steffi Zamudio MD Primary Care Provider [phone] Encounter Details Date Type Department Care Team (Late st Contact Info) Description 04/30/2023 Orders Only PATIENT PORTAL DO NOT DELETE THIS DEPT USED BY LIZ[place] RIVERA [id number] Allergies Active Allergy Reactions Criticality Noted Date Comments Adhesive Tape Rash 03/23/2021 Band-aides -rash Gluten Rash 07/12/2012 Celiac disease documented as of this encounter (statuses as of 04/30/2023) Medications Medication Sig Dispensed Refills Start Date [...] surgery for weight loss 1000 mcg IM [id number] 08/02/2021 06/04/2023 A ctive documented as of this encounter (statuses as of 04/30/2023) Active Problems Problem Noted Date Diagnosed Date 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 (84 genes) Genes Included: AIP, ALK, APC, APTTY, AXIN2, BAP1, BARD1, BLM, BMPR1A, BRCA1, BRCA2, BRIP1, CASR, CDC73, CDH1, CDK4, CDKN1B, CDKN1C, CDKN2A (p14ARF), CDKN2A (s92EHH3p), CEBPA, CHEK2, CTNNA1, DICER1, DIS3L2, EGFR, EPCAM, FH, FLCN, GATA2, GPC3, GREM1, HOXB13, HRAS, KIT, MAX, MEN1, MET, MITF, MLH1, MSH2, MSH3, MSH6, MUTYH, NBN, NF1, NF2, NTHL1, PALB2, PDGFRA, PHOX2B, PMS2, POLD1, POLE, POT1, ABSNE1H, PTCH1, PTEN, RAD50, RAD51C, RAD51D, RB1, RECQL4, RET, RUNX1, SDHA, SDHAF2, SDHB, SDHC, SDHD, SMAD4, SMARCA4, SMARCB1, SMARCE1, STK11, SUFU, TERC, TERT, QPYS388, TP53, TSC1, TSC2, VHL, WRN, WT1 Status [...] as of this encounter (statuses as of 04/30/2023) Resolved Problems Problem Noted Date Diagnosed Date [...] delivery at 36-37 weeks without amniocentesis per [employer]. Every effort [...] indicate that she had a previous infection. [facility] EFW = 1487 01/10 (<3%) [...] as of this encounter (statuses as of 04/30/2023) Immunizations Name Administration Dates Next Due Pneumococcal [...] 11:45 AM EST Office Visit Gynecology/Obstetr ics [facility] [address] [place] [address] Tamiko Baker MD [address] [place] [address] 06/07/2023 3:40 PM EDT Office Visit Nutrition & Weight Management, [facility] [address] [place] [address] Joan Bright PA-C [address] [place] [address] 06/08/2023 7:00 AM EDT Office Visit [facility], Operating Room, [place] [address] [place] [address] Ash Kendrick MD [address] [place] [address] 06/20/2023 4:30 PM EDT Office Visit Gynecology/Obstetr ics [facility] [address] [place] [address] Tamiko Baker MD [address] [place] [address] 07/05/2023 3:45 PM EDT Imaging Radiology [facility] 1st Floor, [place] [address] [place] [address] 07/12/2023 3:10 PM EDT Nutrition Services Nutrition & Weight Management, [facility] [address] [place] [address] Kinsey Cage, MARINON [address] [place] [address] 10/05/2023 1:30 PM EDT Office Visit Dermatology [facility] [address] [facility] [place] [address] Duane ePrez MD [address] [facility] [place] [address] 10/25/2023 2:00 PM EDT Office Visit General Internal Medicine [facility] [address] [facility] [place] [address] Steffi Zamudio MD [address] [facility] [address] [place], [place] [address] 03/07/2024 11:00 AM EST Telemedicine Hematology Oncology [facility] [address] [place] [address] Malignancy, Multidisciplinary Clinic High Risk [facility] [address] [place] [address] 05/16/2024 1:30 PM EST Office Visit Dermatology [facility] [address] [facility] [address] [place], [place] [address] Duane Perez MD [address] [facility] [address] [place], [place] [address] Scheduled Procedures Name Priority Associated Diagnoses Date/Ti [...] and were consensually agreed upon. Care Teams Special Warfare Operator Relationship Specialty Start Date End Date Steffi Zamudio MD [address] [facility] [place], [place] [address] PCP - General Internal Medicine 05/04/11 documented as of this encounter
--- OUTSIDE RECORDS SUMMARY | 2023-07-06 23:15 | External Medical Summary | Summary of Care ---
Author Name Unknown Organization [facility] Address [address] [place] [address] Phone [phone] Care Team Providers Care Chemical Compounder Name Role Phone Steffi Zamudio MD Primary Care Provider Reason for Visit * Reason Onset Date Comments Advice 01/28/2023 Jackson Syndrome S kin Screenings Encounter Details Date Type Department Care Team (Late st Contact Info) Description 01/28/2023 Telephone General Internal Medicine, [facility] [address] [place] [address] Rolf Campo MD [address] [place] [address] Advice (Jackson Syndrome Skin Screenings) Allergies Active Allergy Reactions Criticality Noted Date Comments Adhesive Tape Rash 03/23/2021 Band-aides -rash Gluten Rash 07/12/2012 Celiac disease documented as of this encounter (statuses as of 04/29/2023) Medications Medication Sig Dispensed Refills Start Date [...] once daily 90 Tablet 2 08/16/2022 Active Hospital, Clinic, or Other Facility Administered Medication Ordered Dose Route Frequency Start Date End Date Status vitamin b-12 (Cyanocobalamin) inj 1,000 mcgIndications:Status following gastric banding surgery for weight loss 1000 mcg IM [id number] 08/02/2021 06/04/2023 A ctive documented as of this encounter (statuses as of 04/29/2023) Active Problems Problem Noted Date Diagnosed Date 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 Overview: Genetic Testing Completed 08/30/2022: Test Result: POSITIVE Gene: PMS2 Variant: Deletion (Exons 12-14) ClinVarID: None This result is consistent with Jackson syndrome Test Ordered: Multi-Cancer Panel at [facility] (84 genes) Genes Included: AIP, ALK, APC, PATTY, AXIN2, BAP1, BARD1, BLM, BMPR1A, BRCA1, BRCA2, BRIP1, CASR, CDC73, CDH1, CDK4, CDKN1B, CDKN1C, CDKN2A (p14ARF), CDKN2A ([id number]), CEBPA, CHEK2, CTNNA1, DICER1, DIS3L2, EGFR, EPCAM, FH, FLCN, GATA2, GPC3, GREM1, HOXB13, HRAS, KIT, MAX, MEN1, MET, MITF, MLH1, MSH2, MSH3, MSH6, MUTYH, NBN, NF1, NF2, NTHL1, PALB2, PDGFRA, PHOX2B, PMS2, POLD1, POLE, POT1, FIEJI1C, PTCH1, PTEN, RAD50, RAD51C, RAD51D, RB1, RECQL4, RET, RUNX1, SDHA, SDHAF2, SDHB, SDHC, SDHD, SMAD4, SMARCA4, SMARCB1, SMARCE1, STK11, SUFU, TERC, TERT, KWVP010, TP53, TSC1, TSC2, VHL, WRN, WT1 Status [...] as of this encounter (statuses as of 04/29/2023) Resolved Problems Problem Noted Date Diagnosed Date [...] MFM consult Pt planning repeat c/s at [facility] 1. For patients with previous myomectomy involving [...] delivery at 36-37 weeks without amniocentesis per [employer]. Every effort [...] history of myomectomy. Scheduled for 06/25/15 at [facility] History of prior w ith short cervix, [...] indicate that she had a previous infection. [facility] EFW = 1487 01/10 (<3%) Reviewed the [...] as of this encounter (statuses as of 04/29/2023) Immunizations Name Administration Dates Next Due Pneumococcal [...] encounter Miscellaneous Notes * Telephone Encounter - Rolf Campo MD - 01/28/2023 10:[address] Perez, this patient is scheduled to see you for a routine acne visit in March after her previous kettle hand left the system. We saw her at [facility] in [place], where we generally arrange for patients to see dermatology to assess for sebaceous neoplasms associated with Jackson syndrome (Huntington-Eddie syndrome). Would you be able to assess her annually for Huntington-Eddie lesions? We can arrange for her to see our kettle hand, but given she follows regularly with dermatology and [place] from [place], we would preferto collaborate with you in her Jackson care if you are comfortable with that plan. documented in this encounter Plan of Treatment Upcoming Encounters Date Type Department Care Team (Late st Contact Info) Description 05/23/2023 11:45 AM EST Office Visit Gynecology/Obstetr [facility] [address] [place] [address] Tamiko Baker MD [address] [place] [address] 06/07/2023 3:40 PM EDT Office Visit Nutrition & Weight Management, [facility] [address] [place] [address] Joan Bright PA-C [address] [place] [address] 06/08/2023 7:00 AM EDT Office Visit [facility], Operating Room, [place] [address] [address] [facility] [place] [address] Ash Kendrick MD [address] [place] [address] 06/20/2023 4:30 PM EDT Office Visit Gynecology/Obstetr [facility] [address] [place] [address] Tamiko Baker MD [address] [place] [address] 07/05/2023 3:45 PM EDT Imaging Radiology [facility] [address] [facility] 132 [facility] [place] [address] 07/12/2023 3:10 PM EDT Nutrition Services Nutrition & Weight Management, [facility] [place] [address] Kinsey Cage RDN 132 [place] [address] 10/05/2023 1:30 PM EDT Office Visit Dermatology [facility] [address] [place] [address] Duane Perez MD 200 [facility] [place] [address] 10/25/2023 2:00 PM EDT Office Visit General Internal Medicine [facility] [address] [place] [address] Steffi Zamudio MD 200 [facility] [place] [address] 03/07/2024 11:00 AM EST Telemedicine Hematology Oncology [facility] [address] [place] [address] Malignancy, Multidisciplinary Clinic High Risk Gi [address] [place] [address] 05/16/2024 1:30 PM EST Office Visit Dermatology [facility] [address] [place] [address] Duane Perez MD [address] [place] [address] Scheduled Procedures Name Priority Associated Diagnoses Date/Ti [...] and were consensually agreed upon. Care Teams Chemical Compounder Relationship Specialty Start Date End Date Steffi Zamudio MD [address] [place] [address], [place] [address] PCP - General Internal Medicine 05/04/11 documented as of this encounter
--- OUTSIDE RECORDS SUMMARY | 2023-07-06 23:15 | External Medical Summary | Summary of Care ---
Author Name Unknown Organization [facility] Address [address] [place] [address] Phone [phone] Care Team Providers Care Infection Control Preventionist Name Role Phone Steffi Zamudio MD Primary Care Provider [phone] Reason for Visit * Reason Onset Date Comments Precert Denied 04/10/2023 DAPSON Encounter Details Date Type Department Care Team (Late st Contact Info) Description 04/10/2023 Telephone Dermatology [facility] State Glenn Choudhary [address] [place] [address] Duane Perez MD [address] [place] [address] Precert Denied (DAPSON) Allergies Active Allergy Reactions Criticality Noted Date Comments Adhesive Tape Rash 03/23/2021 Band-aides -rash Gluten Rash 07/12/2012 Celiac disease documented as of this encounter (statuses as of 04/12/2023) Medications Medication Sig Dispensed Refills Start Date [...] surgery for weight loss 1000 mcg IM [id number] 08/02/2021 06/04/2023 A ctive documented as of this encounter (statuses as of 04/12/2023) Active Problems Problem Noted Date Diagnosed Date [...] CDH1, CDK4, CDKN1B, CDKN1C, CDKN2A (p14ARF), CDKN2A ([id number]), CEBPA, CHEK2, CTNNA1, DICER1, DIS3L2, EGFR, EPCAM, FH, FLCN, GATA2, GPC3, GREM1, HOXB13, HRAS, KIT, MAX, MEN1, MET, MITF, MLH1, MSH2, MSH3, MSH6, MUTYH, NBN, NF1, NF2, NTHL1, PALB2, PDGFRA, PHOX2B, PMS2, POLD1, POLE, POT1, RNOZW5C, PTCH1, PTEN, RAD50, RAD51C, RAD51D, RB1, RECQL4, RET, RUNX1, SDHA, SDHAF2, SDHB, SDHC, SDHD, SMAD4, SMARCA4, SMARCB1, SMARCE1, STK11, SUFU, TERC, TERT, VLXO283, TP53, TSC1, TSC2, VHL, WRN, WT1 Status [...] as of this encounter (statuses as of 04/12/2023) Resolved Problems Problem Noted Date Diagnosed Date [...] MFM consult Pt planning repeat c/s at [facility] 1. For patients with [...] 36-37 weeks without amniocentesis per [employer]. Every effort [...] history of myomectomy. Scheduled for 06/25/15 at [facility] History of prior w [...] as of this encounter (statuses as of 04/12/2023) Immunizations Name Administration Dates Next Due Pneumococcal [...] encounter Miscellaneous Notes * Telephone Encounter - Amy Ellis LPN - 04/10/2023 12:54 PM EST Dermatology Pre-Cert Request Medication/Disease State Information: Medication: Dapson 5% gel Diagnosis (including ICD-10): Acne - Acne vulgaris L70.0 Site of Care: specialty medication - route to [id number]. Referral to pharmacist for: No Pharmacist involvement needed See corresponding visit note(s) for additional supporting clinical information. Office Information: Prescriber: Duane Perez MD documented in this encounter Plan of Treatment Upcoming Encounters Date Type Department Care Team (Late st Contact Info) Description 04/26/2023 3:20 PM EST Office Visit General Internal Medicine [facility] [address] [place] [address] Steffi Zamudio MD [address] [place] [address] 06/07/2023 3:40 PM EDT Office Visit Nutrition & Weight Management, [facility] [address] [place] [address] Joan Bright PA-C [address] [place] [address] 07/12/2023 3:10 PM EDT Nutrition Services Nutrition & Weight Management, [facility] [address] [place] [address] Kinsey Cage RDN [address] [place] [address] 10/05/2023 1:30 PM EDT Office Visit Dermatology [facility] [address] [place] [address] Duane Perez MD [address] [place] [place] [address] 03/07/2024 11:00 AM EST Telemedicine Hematology Oncology [facility] [place] [address] [place] [address] Malignancy, Multidisciplinary Clinic High Risk Gi [address] [place], [place] [address] 05/16/2024 1:30 PM EST Office Visit Dermatology [facility] [address] [place] [address] Duane Perez MD [address] [place] [address] Scheduled Procedures Name Priority Associated Diagnoses Date/Ti [...] and were consensually agreed upon. Care Teams Infection Control Preventionist Relationship Specialty Start Date End Date Steffi Zamudio MD [address] [place] [address], [place] [address] PCP - General Internal Medicine 05/04/11 documented as of this encounter
--- OUTSIDE RECORDS SUMMARY | 2023-07-06 23:15 | External Medical Summary | Summary of Care ---
Author Name Unknown Organization [facility] Address [address] [facility] [address] Phone [phone] Care Team Providers Care Director Of Tax Services Name Role Phone Steffi Zamudio MD Primary Care Provider [phone] Reason for Visit * Reason Onset Date Comments Surgery 04/02/2023 Encounter Details Date Type Department Care Team (Late st Contact Info) Description 04/02/2023 Telephone Gynecology/Obstetrics [facility] [address] [place] [address] Tamiko Baker MD [address] [place] [id number] Surgery Allergies Active Allergy Reactions Criticality Noted Date Comments Adhesive Tape Rash 03/23/2021 Band-aides -rash Gluten Rash 07/12/2012 Celiac disease documented as of this encounter (statuses as of 04/16/2023) Medications Medication Sig Dispensed Refills Start Date [...] once daily 90 Tablet 2 08/16/2022 Active Bariatric Multivitamins/Iron Oral Capsule Take by mouth. 0 Active Bariatric Fusion Oral Tablet Chewable Take by mouth. Calcium chew 0 Active buPROPion HCl ER (XL) 150 MG Oral Tablet Extended Release 24 Hour (Wellbutrin XL)Indications:Mix ed emotional features as adjustment reaction Take 1 Tablet by mouth in the morning. 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 Overview: Genetic Testing Completed 08/30/2022: Test Result: POSITIVE Gene: PMS2 Variant: Deletion (Exons 12-14) ClinVarID: None This result is consistent with Mccarthy syndrome Test Ordered: Multi-Cancer Panel at [facility] (84 genes) Genes Included: AIP, ALK, APC, PATTY, AXIN2, BAP1, BARD1, BLM, BMPR1A, BRCA1, BRCA2, BRIP1, CASR, CDC73, CDH1, CDK4, CDKN1B, CDKN1C, CDKN2A (p14ARF), CDKN2A ([id number]), CEBPA, CHEK2, CTNNA1, DICER1, DIS3L2, EGFR, EPCAM, FH, FLCN, GATA2, GPC3, GREM1, HOXB13, HRAS, KIT, MAX, MEN1, MET, MITF, MLH1, MSH2, MSH3, MSH6, MUTYH, NBN, NF1, NF2, NTHL1, PALB2, PDGFRA, PHOX2B, PMS2, POLD1, POLE, POT1, TQRFP6D, PTCH1, PTEN, RAD50, RAD51C, RAD51D, RB1, RECQL4, RET, RUNX1, SDHA, SDHAF2, SDHB, SDHC, SDHD, SMAD4, SMARCA4, SMARCB1, SMARCE1, STK11, SUFU, TERC, TERT, [id number], TP53, TSC1, TSC2, VHL, WRN, WT1 Status [...] as adjustment reaction 08/14/2016 Iron deficiency anemia marixa sal to inadequate dietary iron intake 07/07/2014 Melasma 10/16/2013 Hypertrophic scar 07/03/2012 Acne vulgaris 07/03/2012 Celiac sprue documented as of this encounter (statuses as of 04/16/2023) Resolved Problems Problem Noted Date Diagnosed Date [...] MFM consult Pt planning repeat c/s at [facility] 1. For patients with previous [...] history of myomectomy. Scheduled for 06/25/15 at [facility] History of prior w ith [...] as of this encounter (statuses as of 04/16/2023) Immunizations Name Administration Dates Next Due Pneumococcal [...] encounter Miscellaneous Notes * Telephone Encounter - Mary Todd OSA - 04/16/2023 9:18 AM EST Case created and submitted to [facility] for 06/08/23. * Telephone Encounter - Kinga Johnson OSA - 04/13/2023 1:03 PM EST Pt is scheduled for surgery with Dr Baker on SundayJune 07 at [facility]. Please schedule surgery with Dr Kendrick for hernia repair on the same day. Dr Baker is performing a robotic assisted total laparoscopic hysterectomy, bilateral salpingo-oophorectomy, possible mini-laparotomy and cystoscopy. * Telephone Encounter - Kinga Johnson OSA - 04/12/2023 11:04 AM EST LM for pt to call and schedule surgery with Dr Baker and Dr Kendrick in Gen Surg. * Telephone Encounter - Tamiko Baker MD - 04/02/2023 10:06 AM EST Kinga, Please assist in scheduling. Patient will now proceed with surgery at [facility]. This will be combined with General Surgery, Dr. Kendrick, for hernia repair. Dx: Uterine fibroids, PMS2 related mccarthy syndrome, Incisional Hernia Surgery: RA TLH/BSO, possible mini-laparotomy, and cystoscopy. I will need additional time for this surgery due to the large uterine size/fibroids. Thanks, Dr. Baker documented in this encounter Plan of Treatment Upcoming Encounters Date Type Department Care Team (Late st Contact Info) Description 04/26/2023 3:20 PM EST Office Visit General Internal Medicine [facility] [address] [facility] [place] [address] Steffi Zamudio MD [address] [facility] [place] [facility] [place] [address] 05/23/2023 11:45 AM EST Office [facility] [address] [place] [address] Tamiko Baker MD [address] [place] [address] 06/07/2023 3:40 PM EDT Office Visit Nutrition & Weight Management, [facility] [place] [address] Joan Bright PA-C [facility] [place] [address] 06/08/2023 7:00 AM EDT Office Visit [facility], Operating Room, [address] [place] [facility] [place] [address] Ash Kendrick MD [address] [place] [address] 06/20/2023 4:30 PM EDT Office Visit Gynecology/Obstetr ics [facility] [place] [address] Tamiko Baker MD [address] [facility] [place] [address] 07/12/2023 3:10 PM EDT Nutrition Services Nutrition & Weight Management, [facility] 132 [facility] [place] [address] Kinsey Cage RDN [address] [facility] [place] [address] 10/05/2023 1:30 PM EDT Office Visit Dermatology [facility] 200 [facility] [place] [address] Duane Perez MD 200 [facility] [place] [address] 03/07/2024 11:00 AM EST Telemedicine Hematology Oncology [facility] [address] [place] [address] Malignancy, Multidisciplinary Clinic High Risk Gi [address] [place] [address] 05/16/2024 1:30 PM EST Office Visit Dermatology [place] [address] [place] [address] Duane Perez MD [address] [place] [address] Scheduled Procedures Name Priority Associated Diagnoses Date/Ti [...] consensually agreed upon. Care Teams Director Of Tax Services Relationship Specialty Start Date End Date Steffi Zamudio MD 200 [place] [address] PCP - General Internal Medicine 05/04/11 documented as of this encounter
--- OUTSIDE RECORDS SUMMARY | 2023-07-06 23:15 | External Medical Summary | Summary of Care ---
Author Name Unknown Organization [facility] Address [address] [place] [address] Phone [phone] Care Team Providers Care Automobile Travel Club Counselor Name Role Phone Steffi Zamudio MD Primary Care Provider [phone] Reason for Visit * Reason Onset Date Comments Precert Denied 04/10/2023 DAPSON Encounter Details Date Type Department Care Team (Late st Contact Info) Description 04/10/2023 Telephone Dermatology [facility] State Glenn Choudhary [address] [place] [address] Duane Perez MD [address] [place] [address] Precert Denied (DAPSON) Allergies Active Allergy Reactions Criticality Noted Date Comments Adhesive Tape Rash 03/23/2021 Band-aides -rash Gluten Rash 07/12/2012 Celiac disease documented as of this encounter (statuses as of 04/18/2023) Medications Medication Sig Dispensed Refills Start Date [...] surgery for weight loss 1000 mcg IM [id number] 08/02/2021 06/04/2023 A ctive documented as of this encounter (statuses as of 04/18/2023) Active Problems Problem Noted Date Diagnosed Date [...] CDH1, CDK4, CDKN1B, CDKN1C, CDKN2A (p14ARF), CDKN2A (u46TET8r), CEBPA, CHEK2, CTNNA1, DICER1, DIS3L2, EGFR, EPCAM, FH, FLCN, GATA2, GPC3, GREM1, HOXB13, HRAS, KIT, MAX, MEN1, MET, MITF, MLH1, MSH2, MSH3, MSH6, MUTYH, NBN, NF1, NF2, NTHL1, PALB2, PDGFRA, PHOX2B, PMS2, POLD1, POLE, POT1, TLSRQ7H, PTCH1, PTEN, RAD50, RAD51C, RAD51D, RB1, RECQL4, RET, RUNX1, SDHA, SDHAF2, SDHB, SDHC, SDHD, SMAD4, SMARCA4, SMARCB1, SMARCE1, STK11, SUFU, TERC, TERT, IACA455, TP53, TSC1, TSC2, VHL, WRN, WT1 Status [...] as of this encounter (statuses as of 04/18/2023) Resolved Problems Problem Noted Date Diagnosed Date [...] MFM consult Pt planning repeat c[place] [facility] [place]. For patients with previous myomectomy involving [...] delivery at 36-37 weeks without amniocentesis per [employer]. Every effort [...] history of myomectomy. Scheduled for 06/25/15 at [facility] [place] History of prior w ith short cervix, [...] protocol. Pt given VIS(vaccine information sheet) Ruthann A Parr, RN Previous section 12/16/2014 Overview: C/s x1, [...] as of this encounter (statuses as of 04/18/2023) Immunizations Name Administration Dates Next Due Pneumococcal [...] encounter Miscellaneous Notes * Telephone Encounter - Komal Kim CPhT - 04/18/2023 4:27 PM EST [facility] advised provider reached out to patient to change med Thank you, Komal Kim We[employer] [facility] ([facility]) (formerly Telepharmacy) 04/18/2023 4:28 PM * Telephone Encounter - Duane Perez MD [...] resubmit if appropriate. Thank you, Ashtyn Link Custodial Manager [employer] 04/12/2023, 4:12 PM * Telephone Encounter - Amy Ellis LPN - 04/10/2023 12:54 PM EST Dermatology Pre-Cert Request Medication/Disease State Information: Medication: Dapson 5% gel Diagnosis (including ICD-10): Acne - Acne vulgaris L70.0 Site of Care: specialty medication - route to [id number]. Referral to pharmacist for: No Pharmacist involvement needed See corresponding visit note(s) for additional supporting clinical information. Office Information: Prescriber: Duane Perez MD documented in this encounter Plan of Treatment Upcoming Encounters Date Type Department Care Team (Late st Contact Info) Description 04/26/2023 3:20 PM EST Office Visit General Internal Medicine [place] Glenn Lyles [address] [place] [address] Steffi Zamudio MD [address] [place] [address] 05/23/2023 11:45 AM EST Office Visit Gynecology/Obstetr [address] [place] [address] Tamiko Baker MD [address] [place] [address] 06/07/2023 3:40 PM EDT Office Visit Nutrition & Weight Management, [facility] [place] [address] Joan Bright PA-C [address] [place] [address] 06/08/2023 7:00 AM EDT Office Visit Non [facility], Operating Room, [address] [place] [address] Ash Kendrick MD [address] [place] [address] 06/20/2023 4:30 PM EDT Office Visit Gynecology/Obstetr ics [facility] [address] [place] [address] Tamiko Baker MD [address] [place] [address] 07/12/2023 3:10 PM EDT Nutrition Services Nutrition & Weight Management, Health system [address] [facility] [place] [address] Kinsey Cage RDN [address] [place] [address] 10/05/2023 1:30 PM EDT Office Visit Dermatology [facility] [address] [place] [address] Duane Perez MD [address] [place] [address] 03/07/2024 11:00 AM EST Telemedicine Hematology Oncology [address] [place] [address] Malignancy, Multidisciplinary Clinic High Risk Gi [address] [place] [address] 05/16/2024 1:30 PM EST Office Visit Dermatology [place] Choudhary [place] 200 [facility] [place] [address] Duane Perez MD 200 [facility] [place] [address] Scheduled Procedures Name Priority Associated Diagnoses Date/Ti [...] and were consensually agreed upon. Care Teams Automobile Travel Club Counselor Relationship Specialty Start Date End Date Steffi Zamudio MD 200 [facility] [place] [address] PCP - General Internal Medicine 05/04/11 documented as of this encounter
--- OUTSIDE RECORDS SUMMARY | 2023-07-06 23:15 | External Medical Summary | Summary of Care ---
Author Name Unknown Organization [facility] Address [address] [place] [address] Phone [phone] Care Team Providers Care Rental Clerk Name Role Phone Steffi Jimenez MD Primary Care Provider [phone] Reason for Visit * Reason Comments eRx-Medication Refill Encounter Details Date Type Department Care Team (Late st Contact Info) Description 04/14/2023 Refill General Internal Medicine [facility] State Elissa Choudhary [address] [place] [phone] Steffi Jimenez MD [address] [place] [phone] Mixed emotional features as adjustment reaction Allergies Active Allergy Reactions Criticality Noted Date Comments Adhesive Tape Rash 03/23/2021 Band-aides -rash Gluten Rash 07/12/2012 Celiac disease documented as of this encounter (statuses as of 04/14/2023) Medications Medication Sig Dispensed Refills Start Date End Date Status Hydroquinone 4 % External Cream Apply to brown spots on face 2x per day for 2 months 28.35 g 1 02/01/2021 Active Vitamin D 50 MCG (1999 UT) Oral CapsuleIndications :Status following gastric banding surgery [...] and chest 60 g 2 04/09/2023 Active Hydrocortisone 2.5 % External Cream Apply to rash in left armpit twice daily for 10-14 days 30 g 1 04/11/2023 Active Semaglutide(0.25 or 0.5MG/DOS) 2 MG/3ML Solution Pen-injector (Ozempic) Inject 0.5 mg under the skin once a week. 3 mL 3 04/11/2023 Active buPROPion HCl ER (XL) 150 MG Oral Tablet Extended Release 24 Hour (Wellbutrin XL)Indications:Mix ed emotional features as adjustment reaction TAKE 1 TABLET BY MOUTH IN THE MORNING 30 Tablet 5 04/14/2023 Active buPROPion HCl ER (XL) 150 MG Oral Tablet Extended Release 24 Hour (Wellbutrin XL)Indications:Mix ed emotional features as adjustment reaction Take 1 Tablet by mouth in the morning. 30 Tablet 5 10/19/2022 04/14/19 24 Discontinued Hospital, Clinic, or Other Facility Administered Medication Ordered Dose Route Frequency Start Date End Date Status vitamin b-12 (Cyanocobalamin) inj 1,000 mcgIndications:Status following gastric banding surgery for weight loss 1000 mcg IM [id number] 08/02/2021 06/04/2023 A ctive documented as of this encounter (statuses as of 04/14/2023) Active Problems Problem Noted Date Diagnosed Date [...] CDH1, CDK4, CDKN1B, CDKN1C, CDKN2A (p14ARF), CDKN2A (z26VUA5o), CEBPA, CHEK2, CTNNA1, DICER1, DIS3L2, EGFR, EPCAM, FH, FLCN, GATA2, GPC3, GREM1, HOXB13, HRAS, KIT, MAX, MEN1, MET, MITF, MLH1, MSH2, MSH3, MSH6, MUTYH, NBN, NF1, NF2, NTHL1, PALB2, PDGFRA, PHOX2B, PMS2, POLD1, POLE, POT1, VNYYP7Q, PTCH1, PTEN, RAD50, RAD51C, RAD51D, RB1, RECQL4, RET, RUNX1, SDHA, SDHAF2, SDHB, SDHC, SDHD, SMAD4, SMARCA4, SMARCB1, SMARCE1, STK11, SUFU, TERC, TERT, [id number], TP53, TSC1, TSC2, VHL, WRN, WT1 Status [...] adjustment reaction 08/14/2016 Iron deficiency anemia marixa asl to inadequate dietary iron intake 07/07/2014 Melasma 10/16/2013 Hypertrophic scar 07/03/2012 Acne vulgaris 07/03/2012 Celiac sprue documented as of this encounter (statuses as of 04/14/2023) Resolved Problems Problem Noted Date Diagnosed Date [...] MFM consult Pt planning repeat c/s at [facility] [place]. For patients with previous myomectomy involving [...] delivery at 36-37 weeks without amniocentesis per [employer]. Every effort [...] history of myomectomy. Scheduled for 06/25/15 at [facility] [place] History of prior w ith short cervix, [...] cervix affecting 10/11/2012 11/20/2012 Overview: Vag progesterone CHIRAG- tawanna Kennedy md 11/08/12 (23w1d): Given the [...] as of this encounter (statuses as of 04/14/2023) Immunizations Name Administration Dates Next Due Pneumococcal [...] encounter Miscellaneous Notes * Telephone Encounter - Елена Zacarias [facility] - 04/14/2023 2:10 PM EST Signed Prescriptions: Disp Refills buPROPion HCl ER (XL) 150 MG Oral Tablet E*30 Tab*5 Sig: TAKE 1 TABLET BY MOUTH IN THE MORNINGAuthorizing Provider: Ector JIMENEZ User: MILDRED ZACARIAS documented in this encounter Plan of Treatment Upcoming Encounters Date Type Department Care Team (Late st Contact Info) Description 04/26/2023 3:20 PM EST Office Visit General Internal Medicine [facility] [address] [place] [address] Steffi Jimenez MD [address] [facility] [place] [address] 05/23/2023 11:45 AM EST Office Visit Gynecology/Obstetr [facility] [address] [place] [address] Tamiko Baker MD [address] [place] [address] 06/07/2023 3:40 PM EDT Office Visit Nutrition & Weight Management, [facility] [address] [place] [address] Joan Bright PA-C [address] [place] [address] 06/20/2023 4:30 PM EDT Office Visit Gynecology/Obstetr [facility] [address] [place] [address] Tamiko Baker MD [address] [place] [address] 07/12/2023 3:10 PM EDT Nutrition Services Nutrition & Weight Management, [facility] [address] [place] [address] Kinsey Cage RDN [address] [place] [address] 10/05/2023 1:30 PM EDT Office Visit Dermatology [facility] [address] [place] [address] Duane Perez MD 200 [facility] [place] [address] 03/07/2024 11:00 AM EST Telemedicine Hematology Oncology [facility] [address] [place] [address] Malignancy, Multidisciplinary Clinic High Risk Gi [address] [place], [place] [phone] 05/16/2024 1:30 PM EST Office Visit Dermatology [place] L[place] 200 [facility] [place] [address] Duane Perez MD 200 [facility] [place] [address] Scheduled Procedures Name Priority Associated Diagnoses Date/Ti [...] as of this encounter Visit Diagnoses Diagnosis Mixed emotional features as adjustment reaction Adjustment disorder with mixed anxiety and depressed mood documented in this encounter Advance Directives Latest [...] and were consensually agreed upon. Care Teams Rental Clerk Relationship Specialty Start Date End Date Steffi Jimenez MD 200 [facility] [place] [address] PCP - General Internal Medicine 05/04/11 documented as of this encounter
--- OUTSIDE RECORDS SUMMARY | 2023-07-06 23:15 | External Medical Summary | Summary of Care ---
Author Name Unknown Organization [facility] Address [address] [place] [address] Phone [phone] Care Team Providers Care Corsetier Name Role Phone Steffi Zamudio MD Primary Care Provider [phone] Reason for Visit * Reason Onset Date Comments Precert In Process 04/10/2023 17 CLB LAINA TREVIZO Encounter Details Date Type Department Care Team (Late st Contact Info) Description 04/10/2023 [facility] [place] [address] [place] [address] Duane Perez MD [address] [place] [address] Precert In Process (17 CLB LAINA DAPSON) Allergies Active Allergy Reactions Criticality Noted Date Comments Adhesive Tape Rash 03/23/2021 Band-aides -rash Gluten Rash 07/12/2012 Celiac disease documented as of this encounter (statuses as of 04/11/2023) Medications Medication Sig Dispensed Refills Start Date [...] surgery for weight loss 1000 mcg IM [id number] 08/02/2021 06/04/2023 A ctive documented as of this encounter (statuses as of 04/11/2023) Active Problems Problem Noted Date Diagnosed Date [...] CDH1, CDK4, CDKN1B, CDKN1C, CDKN2A (p14ARF), CDKN2A (m35DKJ1u), CEBPA, CHEK2, CTNNA1, DICER1, DIS3L2, EGFR, EPCAM, FH, FLCN, GATA2, GPC3, GREM1, HOXB13, HRAS, KIT, MAX, MEN1, MET, MITF, MLH1, MSH2, MSH3, MSH6, MUTYH, NBN, NF1, NF2, NTHL1, PALB2, PDGFRA, PHOX2B, PMS2, POLD1, POLE, POT1, KUXTC7Y, PTCH1, PTEN, RAD50, RAD51C, RAD51D, RB1, RECQL4, RET, RUNX1, SDHA, SDHAF2, SDHB, SDHC, SDHD, SMAD4, SMARCA4, SMARCB1, SMARCE1, STK11, SUFU, TERC, TERT, [id number], TP53, TSC1, TSC2, VHL, WRN, WT1 Status [...] as adjustment reaction 08/14/2016 Iron deficiency anemia secmario sal to inadequate dietary iron intake 07/07/2014 Melasma 10/16/2013 Hypertrophic scar 07/03/2012 Acne vulgaris 07/03/2012 Celiac sprue documented as of this encounter (statuses as of 04/11/2023) Resolved Problems Problem Noted Date Diagnosed Date [...] MFM consult Pt planning repeat c/[place] [facility] [place]. For patients with previous [...] delivery at 36-37 weeks without amniocentesis per [employer]. Every effort [...] history of myomectomy. Scheduled for [place]/25/15 [place] [facility] [place] History of prior w ith [...] as of this encounter (statuses as of 04/11/2023) Immunizations Name Administration Dates Next Due Pneumococcal [...] of Care: specialty medication - route to [id number]. Referral to pharmacist for: No Pharmacist involvement needed See corresponding visit note(s) for additional supporting clinical information. Office Information: Prescriber: Duane Perez MD documented in this encounter Plan of Treatment Upcoming Encounters Date Type Department Care Team (Late st Contact Info) Description 04/26/2023 3:20 PM EST Office Visit General Internal Medicine [facility] [address] [place] [address] Steffi Zamudio MD [address] [facility] [address] [address] 06/07/2023 3:40 PM EDT Office Visit Nutrition & Weight Management, [facility] [address] [facility] [place] [address] Joan Bright PA-C [address] [place] [address] 07/12/2023 3:10 PM EDT Nutrition Services Nutrition & Weight Management, [facility] [address] [facility] [place] [address] Kinsey Cage RDN [address] [place] [address] 10/05/2023 1:30 PM EDT Office Visit Dermatology [facility] [address] [place] [address] Duane Perez MD 200 [facility] [address] [address] 03/07/2024 11:00 AM EST Telemedicine Hematology Oncology [facility] [place] [address] [place] [address] Malignancy, Multidisciplinary Clinic High Risk Gi [address] [place] [address] 05/16/2024 1:30 PM EST Office Visit Dermatology [facility] [address] [place] [address] Duane Perez MD 200 [facility] [place], [place] [address] Scheduled Procedures Name Priority Associated Diagnoses Date/Ti [...] and were consensually agreed upon. Care Teams Corsetier Relationship Specialty Start Date End Date Steffi Zamudio MD [address] [place] [address] PCP - General Internal Medicine 05/04/11 documented as of this encounter
--- OUTSIDE RECORDS SUMMARY | 2023-07-06 23:15 | External Medical Summary | Summary of Care ---
Author Name Unknown Organization [facility] Address [address] [place] [address] Phone [phone] Care Team Providers Care Medical Voucher Clerk Name Role Phone Steffi Zamudio MD Primary Care Provider [phone] Reason for Visit * Reason Onset Date Comments Precert Denied 04/10/2023 DAPSON Encounter Details Date Type Department Care Team (Late st Contact Info) Description 04/10/2023 Telephone Dermatology [facility] State Glenn Choudhary [address] [place] [address] Duane Perez MD [address] [place] [address] Precert Denied (DAPSON) Allergies Active Allergy Reactions [...] surgery for weight loss 1000 mcg IM [id number] 08/02/2021 06/04/2023 A ctive documented as of [...] CDH1, CDK4, CDKN1B, CDKN1C, CDKN2A (p14ARF), CDKN2A (o55CRV2i), CEBPA, CHEK2, CTNNA1, DICER1, DIS3L2, EGFR, EPCAM, FH, FLCN, GATA2, GPC3, GREM1, HOXB13, HRAS, KIT, MAX, MEN1, MET, MITF, MLH1, MSH2, MSH3, MSH6, MUTYH, NBN, NF1, NF2, NTHL1, PALB2, PDGFRA, PHOX2B, PMS2, POLD1, POLE, POT1, CYPKB4R, PTCH1, PTEN, RAD50, RAD51C, RAD51D, RB1, RECQL4, RET, RUNX1, SDHA, SDHAF2, SDHB, SDHC, SDHD, SMAD4, SMARCA4, SMARCB1, SMARCE1, STK11, SUFU, TERC, TERT, [id number], TP53, TSC1, TSC2, VHL, WRN, WT1 Status [...] MFM consult Pt planning repeat c/s at [facility] 1. For patients with previous myomectomy involving [...] delivery at 36-37 weeks without amniocentesis per [employer]. Every effort [...] history of myomectomy. Scheduled for 06/25/15 at [facility] History of prior w ith short cervix, [...] encounter Miscellaneous Notes * Telephone Encounter - Ashtyn Link CPhT - 04/12/2023 4:12 PM EST Patients insurance would like to inform the office that Dapson 5% gel is denied because insurance wants pt to try 2 other preferred Rx's, Retin-A, Adapalene- Benzoyl Peroxide. They will fax this info to the office, please review and resubmit if appropriate. Thank you, Ashtyn Link Appeals Court Associate Justice [employer] 04/12/2023, 4:12 PM * Telephone Encounter - Amy Ellis LPN - 04/10/2023 12:54 PM EST Dermatology Pre-Cert Request Medication/Disease State Information: Medication: Dapson 5% gel Diagnosis (including ICD-10): Acne - Acne vulgaris L70.0 Site of Care: specialty medication - route to [id number]. Referral to pharmacist for: No Pharmacist involvement needed See corresponding visit note(s) for additional supporting clinical information. Office Information: Prescriber: Duane Perez MD documented in this encounter Plan of Treatment Upcoming Encounters Date Type Department Care Team (Late st Contact Info) Description 04/26/2023 3:20 PM EST Office Visit General Internal Medicine [place] [address] [address] [place] [address] Steffi Zamudio MD 200 [facility] [place] [facility] [place] [address] 06/07/2023 3:40 PM EDT Office Visit Nutrition & Weight Management, [facility] [address] [place] [address] Joan Bright PA-C 132 [facility] [place] [address] 07/12/2023 3:10 PM EDT Nutrition Services Nutrition & Weight Management, [facility] [address] [place] [address] Kinsey Cage RDN [address] [place] [address] 10/05/2023 1:30 PM EDT Office Visit Dermatology [place] [address] [place] [address] Duane Perez MD [address] [place], [place] [address] [place] [address] 03/07/2024 11:00 AM EST Telemedicine Hematology Oncology [facility] [address] [facility] [place] [address] Malignancy, Multidisciplinary Clinic High Risk Gi [address] [facility], [place] [id number] 05/16/2024 1:30 PM EST Office Visit Dermatology [place] 200 [facility] [place] [address] Duane Perez MD 200 [facility] [place] [address] Scheduled Procedures Name Priority Associated Diagnoses Date/Ti [...] and were consensually agreed upon. Care Teams Medical Voucher Clerk Relationship Specialty Start Date End Date Steffi Zamudio MD 200 [facility] [place] [address] PCP - General Internal Medicine 05/04/11 documented as of this encounter
--- OUTSIDE RECORDS SUMMARY | 2023-07-06 23:15 | External Medical Summary | Summary of Care ---
Author Name Unknown Organization [facility] Address [address] [place] [address] Phone [phone] Care Team Providers Care Automobile Damage Appraiser Name Role Phone Steffi Zamudio MD Primary Care Provider [phone] Reason for Visit * Reason Onset Date Comments Dietary Counseling 01/28/2023 Jackson Syndrom e and resistant starches in patient with history of gastric sleeve. Encounter Details Date Type Department Care Team (Late st Contact Info) Description 01/28/2023 Telephone General Internal Medicine, [facility] [address] [place] [address] Rolf Campo MD [address] [place] [address] Dietary Counseling (Jackson Syndrome and res... Allergies Active Allergy Reactions Criticality Noted Date Comments Adhesive Tape Rash 03/23/2021 Band-aides -rash Gluten Rash 07/12/2012 Celiac disease documented as of this encounter (statuses as of 04/29/2023) Medications Medication Sig Dispensed Refills Start Date End Date Status Hydroquinone 4 % External Cream Apply to brown spots on face 2x per day for 2 months 28.35 g 1 02/02/20 21 Active Vitamin D 50 MCG (1999) Oral CapsuleIndication s:Status following gastric banding surgery for weight loss Take by mouth 2,000 Units in the morning. 0 06/03/19 22 Active LORazepam 0.5 MG Oral Tablet (Ativan)Indicatio ns:Depression with anxiety Take by mouth 1 Tablet 2 times a day as needed for Anxiety. 20 Tablet 0 06/04/19 22 Active Cyclobenzaprine HCl 5 MG Oral Tablet (Flexeril)Indicat ions:Neck pain TAKE 1 TABLET BY MOUTH TWICE DAILY NEEDED FOR MUSCLE SPASM 30 Tablet 2 08/30/19 22 Active Adapalene 0.1 % External Gel (Differin) Apply topically to affected area at bedtime . Apply to face and chest and thighs 90 g 11 10/22/19 22 Active metroNIDAZOLE 0.75 % External Lotion APPLY TOPICALLY TO FACE TWICE DAILY 59 mL 5 04/17/19 23 Active Iron 325 (65 Fe) MG Oral TabletIndications :Status following gastric banding surgery for weight loss,Iron deficiency anemia secondary to inadequate dietary iron intake Take 1 tablet by mouth once daily 90 Tablet 2 08/17/19 23 Active Ventolin HFA 108 (90 Base) MCG/ACT Inhalation Aerosol SolutionIndicatio ns:COVID-19 virus infection Inhale by mouth 2 Puffs every 4 hours as needed for Wheezing. 18 g 1 05/31/19 22 023 Discontinued(Ut dication List Clean Up) Viactiv Calcium Immune 650-20-5.5 MG-MCG-MG Oral Tablet Chewable (Calcium-Cholecal ciferol-Zinc) Take by mouth 2 Tablets daily . 0 024 Discontinued Womens One Daily Oral Tablet Take by mouth 2 Gum Dosing Unit daily . 0 024 Discontinued Calcium Carb-Cholecalcife rol 600-400 MG-UNIT Oral Tablet 1 Tablet . 0 05/31/19 22 024 Discontinued Nystatin 228954 UNIT/GM External Powder (Nystop)Indicatio ns:Iesha albicans infection Apply topically to affected area 3 times a day. Apply to underneath breasts for 2-4 weeks 30 g 1 02/16/20 22 023 Discontinued Zinc 50 MG Oral CapsuleIndication s:Intestinal postoperative nonabsorption Take 1 Capsule by mouth in the morning. 0 024 Discontinued buPROPion HCl ER (XL) 150 MG Oral Tablet Extended Release 24 Hour (Wellbutrin XL)Indications:Mi xed emotional features as adjustment reaction Take 1 Tablet by mouth in the morning. 30 Tablet 5 10/20/19 23 024 Discontinued Wegovy 2.4 MG/0.75ML Subcutaneous Solution Auto-injector (Semaglutide-Weig ht Management)Indica tions:Obesity, Class I, BMI 30-34.9 INJECT 2.4 MG SUBCUTANEOUSLY ONCE A WEEK 9 mL 0 11/07/19 23 023 Discontinued Bariatric Multivitamins/Iro n Oral Capsule Take by mouth. 0 024 Discontinued Bariatric Fusion Oral Tablet Chewable Take by mouth. Calcium chew 0 024 Discontinued Wegovy 2.4 MG/0.75ML Subcutaneous Solution Auto-injector (Semaglutide-Weig ht Management) Inject 2.4 mg under the skin once a week. 9 mL 1 01/26/20 23 023 Discontinued Hospital, Clinic, or Other Facility Administered Medication Ordered Dose Route Frequency Start Date End Date Status vitamin b-12 (Cyanocobalamin) inj 1,000 mcgIndications:Status following gastric banding surgery for weight loss 1000 mcg IM [id number] 08/02/2021 06/04/2023 A ctive documented as of [...] CDH1, CDK4, CDKN1B, CDKN1C, CDKN2A (p14ARF), CDKN2A ([id number]), CEBPA, CHEK2, CTNNA1, DICER1, DIS3L2, EGFR, EPCAM, FH, FLCN, GATA2, GPC3, GREM1, HOXB13, HRAS, KIT, MAX, MEN1, MET, MITF, MLH1, MSH2, MSH3, MSH6, MUTYH, NBN, NF1, NF2, NTHL1, PALB2, PDGFRA, PHOX2B, PMS2, POLD1, POLE, POT1, UVKET1H, PTCH1, PTEN, RAD50, RAD51C, RAD51D, RB1, RECQL4, RET, RUNX1, SDHA, SDHAF2, SDHB, SDHC, SDHD, SMAD4, SMARCA4, SMARCB1, SMARCE1, STK11, SUFU, TERC, TERT, ONHZ626, TP53, TSC1, TSC2, VHL, WRN, WT1 Status [...] MFM consult Pt planning repeat c/s at [facility] 1. For patients with previous myomectomy involving [...] delivery at 36-37 weeks without amniocentesis per [employer]. Every effort [...] history of myomectomy. Scheduled for 06/25/15 at [facility] History of prior w ith short cervix, [...] Telephone Encounter - Rolf Campo MD - 01/29/2023 7:20 PM EST Thank you Joan. This is very helpful. I informed the patient of the recommendations. She will work on feeling better as per the discussion below (actually vomited today, aware she may need to reconsider the semaglutide) before making any attempt to increase resistant starches. Carey, could we add this as an item for follow-up clinic? * Telephone Encounter - Joan Bright PA-C - 01/29/2023 3:18 PM EST Thank you for the follow up message. 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 We usually recommend having starches paired with a protein at meals (to help decrease dumping and reactive hypoglycemia) She is okay to have 2-3 servings per day (1/4 cup each) of starches like potatoes, rice, pasta, corn, peas, legumes, barnes beans. Starches to avoid are pastries, muffins, cookies, biscuits, crackers, hebrew fries, fried potatoes,mac and cheese, etc. I suspect she will do fine. We see less dumping and reactive hypoglycemia with gastric sleeve v. Bypass or BPD. Her food intolerances and decreased PO intake right now are likely related to the wegovy she is on.We had discussed stopping/decreasing but she has been hesitant to do that. I plan to follow up closely to make sure she is getting in her nutrition and especially protein. I will forward to our hunting sales associate as well to see if she has any other input. With the celiac obviously she should avoid gluten as well. * Telephone Encounter - Rolf Campo MD - 01/28/2023 9:59 PM EST Joan, thank you for your care of this patient in GI nutrition. I saw her with the [facility], and we discussed with the patient that a diet high in resistant starches (e.g. whole grains, legumes, green bananas, peas, cooked and cooled risk and pasta) or resistant starch supplements (e.g. potato starch) has been shown to decrease non-colon cancer in a patient population with Jackson syndr ome in the CAPP2 study. We did not recommend resistant starches for this this patient due to her celiac disease and her history of gastric sleeve. We have concerns about tolerability, the effects of a high resistant starch diet on the gastric sleep, and whether this could compromise her protein intake if she were to get GI distress. Do you have any thoughts regarding whether it would be tolerable? Also, we are not sure whether the findings from the CAPP2 study would extrapolate to a population with a history of gastric sleeve. To follow match the study intervention, she would ideally consume 30 grams or more of resistant starches. This could be accomplished by consuming 3-4 tablespoons of potato starch daily or through increasing the foods listed at the top. Do you have any guidance regarding whether it is reasonable to suggest that she aim for 30 grams ofresistant starches? documented in this encounter Plan of Treatment Upcoming Encounters Date Type Department Care Team (Late st Contact Info) Description 05/23/2023 11:45 AM EST Office Visit Gynecology/Obstetr ics [facility] [address] [place] [address] Tamiko Baker MD [address] [place] [address] 06/07/2023 3:40 PM EDT Office Visit Nutrition & Weight Management, [facility] [address] [address] Joan Bright PA-C [address] [place] [address] 06/08/2023 7:00 AM EDT Office Visit Non [facility], Operating Room, [place] [address] [place] [facility] [place] [address] Ash Kendrick MD [address] [place] [address] 06/20/2023 4:30 PM EDT Office Visit Gynecology/Obstetr ics [facility] [address] [facility] [place] [address] Tamiko Baker MD [address] [place] [address] 07/05/2023 3:45 PM EDT Imaging [facility] [address] [facility] [place] [address] 07/12/2023 3:10 PM EDT Nutrition Services Nutrition & Weight Management, [facility] [address] [facility] [place] [address] Kinsey Cage RDN [address] [place] [address] 10/05/2023 1:30 PM EDT Office Visit Dermatology [facility] [place] [address] [facility] [place] [address] Duane Perez MD [address] [facility] [place] [address] 10/25/2023 2:00 PM EDT Office Visit General Internal Medicine [facility] [place] [address] [facility] [place] [address] Steffi Zamudio MD [address] [facility] [place] [address] 03/07/2024 11:00 AM EST Telemedicine Hematology Oncology [facility] [place] [address] [place] [address] Malignancy, Multidisciplinary Clinic [facility] [address] [place] [address] 05/16/2024 1:30 PM EST Office Visit Dermatology [facility] [address] [place], [place] [address] Duane Perez MD [address] [place] [address] Scheduled Procedures Name Priority Associated Diagnoses Date/Ti [...] were consensually agreed upon. Care Teams Automobile Damage Appraiser Relationship Specialty Start Date End Date Steffi Zamudio MD [address] [facility] [place] [address] PCP - General Internal Medicine 05/04/11 documented as of this encounter
--- OUTSIDE RECORDS SUMMARY | 2023-07-06 23:15 | External Medical Summary | Summary of Care ---
Author Name Unknown Organization [facility] Address [address] [place] [address] Phone [phone] Care Team Providers Care Commissary Agent Name Role Phone Steffi Zamudio MD Primary Care Provider [phone] Reason for Visit * Reason Onset Date Comments Precert Denied 04/10/2023 DAPSON Encounter Details Date Type Department Care Team (Late st Contact Info) Description 04/10/2023 Telephone Dermatology [facility] Glenn Choudhary [address] [place] [address] Duane Perez MD [address] [place] [address] Precert Denied (DAPSON) Allergies Active Allergy Reactions [...] surgery for weight loss 1000 mcg IM [id number] 08/02/2021 06/04/2023 A ctive documented as of this encounter (statuses as of 04/12/2023) Active Problems Problem Noted Date Diagnosed Date 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 Overview: Genetic Testing Completed 08/30/2022: Test Result: POSITIVE Gene: PMS2 Variant: Deletion (Exons 12-14) ClinVarID: None This result is consistent with Jackson syndrome Test Ordered: Multi-Cancer Panel at [facility] (84 genes) Genes Included: AIP, ALK, APC, PATTY, AXIN2, BAP1, BARD1, BLM, BMPR1A, BRCA1, BRCA2, BRIP1, CASR, CDC73, CDH1, CDK4, CDKN1B, CDKN1C, CDKN2A (p14ARF), CDKN2A ([id number]), CEBPA, CHEK2, CTNNA1, DICER1, DIS3L2, EGFR, EPCAM, FH, FLCN, GATA2, GPC3, GREM1, HOXB13, HRAS, KIT, MAX, MEN1, MET, MITF, MLH1, MSH2, MSH3, MSH6, MUTYH, NBN, NF1, NF2, NTHL1, PALB2, PDGFRA, PHOX2B, PMS2, POLD1, POLE, POT1, [id number], PTCH1, PTEN, RAD50, RAD51C, RAD51D, RB1, RECQL4, RET, RUNX1, SDHA, SDHAF2, SDHB, SDHC, SDHD, SMAD4, SMARCA4, SMARCB1, SMARCE1, STK11, SUFU, TERC, TERT, HCOW223, TP53, TSC1, TSC2, VHL, WRN, WT1 Status [...] MFM consult Pt planning repeat c/s at [facility] 1. For patients with [...] delivery at 36-37 weeks without amniocentesis per [employer]. Every effort [...] history of myomectomy. Scheduled for 06/25/15 at [facility] History of prior w [...] resubmit if appropriate. Thank you, Ashtyn Link Office Specialist [facility] 04/12/2023, 4:12 PM * Telephone Encounter - Amy Ellis LPN - 04/10/2023 12:54 PM EST Dermatology Pre-Cert Request Medication/Disease State Information: Medication: Dapson 5% gel Diagnosis (including ICD-10): Acne - Acne vulgaris L70.0 Site of Care: specialty medication - route to [id number]. Referral to pharmacist for: No Pharmacist involvement needed See corresponding visit note(s) for additional supporting clinical information. Office Information: Prescriber: Duane Perez MD documented in this encounter Plan of Treatment Upcoming Encounters Date Type Department Care Team (Late st Contact Info) Description 04/26/2023 3:20 PM EST Office Visit General Internal Medicine [place] [address] [place] [address] Steffi Zamudio MD [address] [facility] [place] [facility] [place] [address] 06/07/2023 3:40 PM EDT Office Visit Nutrition & Weight Management, [facility] [address] [place] [address] Joan Bright PA-C 132 [facility] [place] [address] 07/12/2023 3:10 PM EDT Nutrition Services Nutrition & Weight Management, [facility] [address] [place] [address] Kinsey Cage RDN [address] [place] [address] 10/05/2023 1:30 PM EDT Office Visit Dermatology [place] [address] [place] [address] Duane Perez MD [address] [place], [place] [id number] [address] 03/07/2024 11:00 AM EST Telemedicine Hematology Oncology [facility] [address] [facility] [place] [address] Malignancy, Multidisciplinary Clinic High Risk Gi [address] [facility], [place] [address] 05/16/2024 1:30 PM EST Office Visit Dermatology [place] [facility] 200 [facility] [place] [address] Duane Perez MD 200 [facility] [place] [address] Scheduled Procedures Name Priority Associated Diagnoses Date/Ti [...] and were consensually agreed upon. Care Teams Commissary Agent Relationship Specialty Start Date End Date Steffi Zamudio MD 200 [facility] [place] [address] PCP - General Internal Medicine 05/04/11 documented as of this encounter
--- OUTSIDE RECORDS SUMMARY | 2023-07-06 23:15 | External Medical Summary | Summary of Care ---
Author Name Unknown Organization [facility] Address [address] [place] [address] Phone [phone] Care Team Providers Care Ham Marker Name Role Phone Steffi Zamudio MD Primary Care Provider [phone] Reason for Visit * Reason Onset Date Comments Advice 04/30/2023 Encounter Details Date Type Department Care Team (Late st Contact Info) Description 04/30/2023 Telephone Nutrition & Weight Management, [facility] [address], [place] [id number] Services, Scheduling [address] [place] [address] Advice Allergies Active Allergy Reactions Criticality Noted [...] surgery for weight loss 1000 mcg IM [id number] 08/02/2021 06/04/2023 A ctive documented as of this encounter (statuses as of 04/30/2023) Active Problems Problem Noted Date Diagnosed Date 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 Overview: Genetic Testing Completed 08/30/2022: Test Result: POSITIVE Gene: PMS2 Variant: Deletion (Exons 12-14) ClinVarID: None This result is consistent with Jackson syndrome Test Ordered: Multi-Cancer Panel at [facility] (84 genes) Genes Included: AIP, ALK, APC, PATTY, AXIN2, BAP1, BARD1, BLM, BMPR1A, BRCA1, BRCA2, BRIP1, CASR, CDC73, CDH1, CDK4, CDKN1B, CDKN1C, CDKN2A (p14ARF), CDKN2A ([id number]), CEBPA, CHEK2, CTNNA1, DICER1, DIS3L2, EGFR, EPCAM, FH, FLCN, GATA2, GPC3, GREM1, HOXB13, HRAS, KIT, MAX, MEN1, MET, MITF, MLH1, MSH2, MSH3, MSH6, MUTYH, NBN, NF1, NF2, NTHL1, PALB2, PDGFRA, PHOX2B, PMS2, POLD1, POLE, POT1, [id number], PTCH1, PTEN, RAD50, RAD51C, RAD51D, RB1, RECQL4, RET, RUNX1, SDHA, SDHAF2, SDHB, SDHC, SDHD, SMAD4, SMARCA4, SMARCB1, SMARCE1, STK11, SUFU, TERC, TERT, [id number], TP53, TSC1, TSC2, VHL, WRN, WT1 Status [...] consult Pt planning repeat c/s at [facility] 1. For patients with [...] delivery at 36-37 weeks without amniocentesis per [employer]. Every effort [...] of myomectomy. Scheduled for 06/25/15 at [facility] History of prior w [...] indicate that she had a previous infection. [facility] EFW = 1487 01/10 (<3%) Reviewed [...] encounter Miscellaneous Notes * Telephone Encounter - Antonia Nieves OSA [...] 05/23/2023 11:45 AM EST Office Visit Gynecology/Obstetr [facility] [address] [place] [address] Tamiko Baker MD [address] [place] [address] 06/07/2023 3:40 PM EDT Office Visit Nutrition & Weight Management, [facility] [address] [place] [address] Joan Bright PA-C [address] [place] [address] 06/08/2023 7:00 AM EDT Office Visit Non [facility], Operating Room, [facility] [address] [place] [facility] [place] [address] Ash Kendrick MD [address] [place] [address] 06/20/2023 4:30 PM EDT Office Visit Gynecology/Obstetr ics [facility] [address] [place] [address] Tamiko Baker MD [address] [place] [address] 07/05/2023 3:45 PM EDT Imaging Radiology [facility] [address] [place] [address] 07/12/2023 3:10 PM EDT Nutrition Services Nutrition & Weight Management, [facility] 132 [facility] [place] [address] Kinsey Cage RDN [address] [place] [address] 10/05/2023 1:30 PM EDT Office Visit Dermatology [facility] [address] [facility] [place] [address] Duane Perez MD [address] [place] [address] 10/25/2023 2:00 PM EDT Office Visit General Internal Medicine [facility] [address] [facility] [place] [address] Steffi Zamudio MD [address] [place] [address] 03/07/2024 11:00 AM EST Telemedicine Hematology Oncology [facility] [address] [place] [phone] Malignancy, Multidisciplinary Clinic High Risk Gi [address], [place] [phone] 05/16/2024 1:30 PM EST Office Visit Dermatology [facility] [place] [address] [facility] [place], [place] [address] Duane Perez MD [address] [facility] [place], [place] [address] Scheduled Procedures Name Priority Associated Diagnoses Date/Ti [...] and were consensually agreed upon. Care Teams Ham Marker Relationship Specialty Start Date End Date Steffi Zamudio MD 200 [place] [address] PCP - General Internal Medicine 05/04/11 documented as of this encounter
--- OUTSIDE RECORDS SUMMARY | 2023-07-06 23:15 | External Medical Summary | Summary of Care ---
Author Name Unknown Organization [facility] Address [address] [place] [place] [address] Phone [phone] Care Team Providers Care Library Clerk Name Role Phone Steffi Zamudio MD Primary Care Provider [phone] Reason for Visit * Reason Comments Weight Management 1 month follow up, b old Medication Administration B 12 Encounter Details Date Type Department Care Team (Late st Contact Info) Description 04/11/2023 12:40 PM EST Office Visit Nutrition & Weight Management, [facility] [address] [place] [address] Joan Bright PA-C [address] [place] [address] Status post laparoscopic sleeve gastrectomy*; Intestinal postoperative nonabsorption Allergies Active Allergy Reactions [...] a week. 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 Overview: Genetic Testing Completed 08/30/2022: Test Result: POSITIVE Gene: PMS2 Variant: Deletion (Exons 12-14) ClinVarID: None This result is consistent with Jackson syndrome Test Ordered: Multi-Cancer Panel at [facility] (84 genes) Genes Included: AIP, ALK, APC, PATTY, AXIN2, BAP1, BARD1, BLM, BMPR1A, BRCA1, BRCA2, BRIP1, CASR, CDC73, CDH1, CDK4, CDKN1B, CDKN1C, CDKN2A (p14ARF), CDKN2A ([id number]), CEBPA, CHEK2, CTNNA1, DICER1, DIS3L2, EGFR, EPCAM, FH, FLCN, GATA2, GPC3, GREM1, HOXB13, HRAS, KIT, MAX, MEN1, MET, MITF, MLH1, MSH2, MSH3, MSH6, MUTYH, NBN, NF1, NF2, NTHL1, PALB2, PDGFRA, PHOX2B, PMS2, POLD1, POLE, POT1, [id number], PTCH1, PTEN, RAD50, RAD51C, RAD51D, RB1, RECQL4, RET, RUNX1, SDHA, SDHAF2, SDHB, SDHC, SDHD, SMAD4, SMARCA4, SMARCB1, SMARCE1, STK11, SUFU, TERC, TERT, [id number], TP53, TSC1, TSC2, VHL, WRN, WT1 Status [...] indicate that she had a previous infection. [employer] EFW = 1487 01/10 (<3%) Reviewed the [...] Passive Smoke Exposure: Never Smokeless Tobacco: Never Tobacco Cessation:Counseling Given: Not Answered Alcohol Use Standard Drinks/Week Comments No 0 [...] Sign Reading Time Taken Comments Blood Pressure 99/66 04/11/2023 12:52 PM EST Pulse 83 04/11/2023 12:52 PM EST Temperature 36.4 C (97.5 F) 04/11/2023 12:[address] Respiratory Rate - - Oxygen Saturation 98% 04/11/2023 12:52 PM EST Inhaled Oxygen Concentration - - Weight 68.1 kg (150 lb 3.2 oz) 04/11/2023 12:52 PM EST Height 171.5 cm (5' 7.5") 04/11/2023 12:52 PM ES T Body Mass Index 23.18 04/11/2023 12:52 PM EST documented in this encounter Functional [...] Progress Notes * Joan Bright PA-C - 04/11/2023 12:48 PM EST [facility] Post Sleeve Gastrectomy There are no exam notes on file for this visit. Referring physician: Steffi Zamudio MD Parris Gay is a 42 year old female who [...] patient is s/p laprascopic Sleeve Gastrectomy in [place] 05/25/21 - Weight at the time of the surgery 273 lbs - Today's weight: 150 lbs - Total weight loss of -123 lbs since surgery - Patient's weight has -3 since last visit on 03/01/23 Wt Readings from Last 6 Encounters: 04/11/23 68.1 kg (150 lb 3.2 oz) 03/27/23 69 kg (152 lb 3.2 oz) 03/01/23 69.7 kg (153 lb 9.6 oz) 02/20/23 70.3 kg (155 lb) 01/25/23 72 kg (158 lb 12.8 oz) 01/19/23 73.2 kg (161 lb 4.8 oz) 04/11/2023 -doing better Is eating more Did [...] -ordered calcium and chewable MVI from [employer] -not tolerating the bariatric advantage MVI -plan [...] Review of Systems: Review of Systems Gastrointestinal: Positive for vomiting. Psychosocial adjustment: Yes, having issues with [...] iron and recheck labs in 3 months Review of patient's allergies indicates: Allergen Reactions [...] faceand chest and thighs 90 g 11 Iron 325 (65 Fe) MG Oral Tablet Take 1 tablet by mouth once daily 90 Tablet 2 buPROPion HCl ER (XL) 150 MG Oral Tablet Extended Release 24 Hour (Wellbutrin XL) Take 1 Tablet by mouth in the morning. 30 Tablet 5 Dapsone 5 % External Gel Apply to acne on face and chest 60 g 2 Hydrocortisone 2.5 % External Cream Apply to rash in left armpit twice daily for 10-14 days 30 g 1 Semaglutide(0.25 or 0.5MG/DOS) 2 MG/3ML Solution Pen-injector (Ozempic) Inject 0.5 mg under the skin once a week. 3 mL 3 Viactiv Calcium Immune 650-20-5.5 MG-MCG-MG Oral Tablet Chewable (Wllzpvf-Ecqeiynrfjmfrwq-Yhrm) Take by mouth 2 Tablets daily . (Patient not taking: Reported on 01/10/2023) Womens One Daily Oral Tablet Take by mouth 2 Gum Dosing Unit daily . (Patient not taking: Reported on 01/10/2023) Cyclobenzaprine HCl 5 MG Oral Tablet (Flexeril) TAKE 1 TABLET BY MOUTH TWICE DAILY NEEDED FOR MUSCLE SPASM (Patient not taking: Reported on 02/20/2023) 30 Tablet 2 Calcium Carb-Cholecalciferol 600-400 MG-UNIT Oral Tablet 1 Tablet . (Patient not taking: Reported on 01/25/2023) metroNIDAZOLE 0.75 % External Lotion APPLY TOPICALLY TO FACE TWICE DAILY 59 mL 5 Zinc 50 MG Oral Capsule Take 1 Capsule by mouth in the morning. (Patient not taking: Reported on 02/20/2023) Bariatric Multivitamins/Iron Oral Capsule Take by mouth. (Patient not taking: Reported on 02/20/2023) Bariatric Fusion Oral Tablet Chewable Take by mouth. Calcium chew (Patient not taking: Reported on 02/20/2023) Current Facility-Administered Medications Medication Dose Route Frequency Provider Last Rate Last Admin vitamin b-12 (Cyanocobalamin) inj 1,000 mcg 1,000 mcg Intramuscular Q8 Weeks Steffi Zamudio MD 1,000 mcg at 01/10/23 1403 There were no vitals taken for this visit. Physical Exam Vitals and nursing note reviewed. Constitutional: Appearance: Normal appearance. HENT: Head: Normocephalic and atraumatic. Cardiovascular: Normal rate. Pulmonary: Effort: Pulmonary effort is normal. No respiratory distress. Neurological: Mental Status: Alert and oriented to person, place, and time. Psychiatric: Mood and Affect: Mood normal. Assessment/Plan: Parris was seen today for post-op. Diagnoses and all orders for this visit: Intestinal postoperative nonabsorption Still not taking vitamins-- counseled again on importance of vitamns Will get B12 today MVI-- trying to find one she can tolerate Calcium-- not tolerating bariatric advantage-- did okay with viactive but that is calcium carbonate Vitamin D--- doesn't need extra if she is taking the MVI Zinc-- low because she was not on the MVI-- doesn't need extra zinc if she is taking her MVI B12- continue Plan Semaglutide(0.25 or 0.5MG/DOS) 2 MG/3ML Solution Pen-injector (Ozempic) Obesity, Class I, BMI 30-34.9 (Primary) Intestinal post operative mal absorption Steady weight loss Concern with poor PO intake-- must get in min 60g protein and min 64 ounces fluids-- saw RD 2 weeksago -she is not getting nearly enough protein, not getting appropriate PO intake-- reports she is doinga little better Will continue to down titrate the semaglutide Still losing 1/2 pound per week with wegovy 1mg weekly GHp family will cover ozempic without prior auth this year-- will send in ozempic with plan to do 0.5mg weekly. Goal is to find lowest effective dose for weight maintenance without further weight loss and for patient to be able to have appropriate PO intake Wegovy shortage persists Follow up in 2 months for annual bold Will continue to have close follow up [...] next visit. I spent a total of 24 minutes on the date of service in [...] achieve future goals. Joan Bright PA-C, [facility] Nutrition and Weight Management [facility] ([facility]) documented in this encounter Nursing Notes * Margaux Perez LPN - 04/11/2023 1:13 PM EST Patient identified by name and date of . Chief Complaint Patient presents with Weight Management 1 month follow up, bold Medication Administration B 12 Administrations This Visit vitamin b-12 (Cyanocobalamin) inj 1,000 mcg Admin Date 04/11/2023 Action Given Dose 1,000 mcg Route Intramuscular Documented By Margaux Perez LPN documented in this encounter Plan of Treatment Upcoming Encounters Date Type Department Care Team (Late st Contact Info) Description 04/26/2023 3:20 PM EST Office Visit General Internal Medicine [facility] [address] [place] [address] Steffi Zamudio MD [address] [facility] [address] [place] [address] 06/07/2023 3:40 PM EDT Office Visit Nutrition & Weight Management, [facility] [address] [facility] [place] [address] Joan Bright PA-C [address] [facility] [address] 07/12/2023 3:10 PM EDT Nutrition Services Nutrition & Weight Management, [facility] [address] [facility] [place] [address] Kinsey Cage RDN [address] [facility] [address] 10/05/2023 1:30 PM EDT Office Visit Dermatology [facility] [address] [place] [address] Duane Perez MD [address] [facility] [address] [place] [address] 03/07/2024 11:00 AM EST Telemedicine Hematology Oncology [facility] [address] [facility] [place] [address] Malignancy, Multidisciplinary Clinic High Risk [facility] [address] [facility] [place] [address] 05/16/2024 1:30 PM EST Office Visit Dermatology [facility] [address] [facility] [place] [address] Duane Perez MD [address] [facility] [place] [address] Scheduled Procedures Name Priority Associated Diagnoses Date/Ti [...] of this encounter Visit Diagnoses Diagnosis Status post laparoscopic sleeve gastrectomy- Primary Intestinal postoperative nonabsorption Other and unspecified postsurgical nonabsorption documented in this encounter Administered Medications Active Administered Medications - up to 3 most recent administrations Medication Order MAR Action Action Date Dose Rate Site vitamin b-12 (Cyanocobalamin) inj 1,000 mcg 1,000 mcg, Intramuscular, [id number], First dose on Sun08/02/21 at 0000, Last dose on Sun04/10/23 at 0000, For 12 doses Given 04/11/2023 1:12 PM EST 1,000 mcg Deltoid Left Upper Given 01/10/2023 2:03 PM EDT 1,000 mcg De ltoid Left Lower Given 11/07/2022 4:42 PM EDT 1,000 mcg Do rsogluteal Left documented in this encounter Advance Directives Latest [...] and were consensually agreed upon. Care Teams Library Clerk Relationship Specialty Start Date End Date Stefif Zamudio MD [address] [facility] [place] [address] PCP - General Internal Medicine 05/04/11 documented as of this encounter
--- OUTSIDE RECORDS SUMMARY | 2023-07-06 23:16 | External Medical Summary | Summary of Care ---
Author Name Unknown Organization [facility] Address [address] [place] [address] Phone [phone] Care Team Providers Care Cloud Infrastructure Architect Name Role Phone Steffi Zamudio MD Primary Care Provider [phone] Reason for Visit * Reason Onset Date Comments Appointment 03/28/2023 Encounter Details Date Type Department Care Team (Late st Contact Info) Description 03/28/2023 Telephone General Surgery, [facility] [address] [place] [address] Ash Kendrick MD [address] [facility], [place] [id number] Appointment Allergies Active Allergy Reactions Criticality Noted Date Comments Adhesive Tape Rash 03/23/2021 Band-aides -rash Gluten Rash 07/12/2012 Celiac disease documented as of this encounter (statuses as of 04/02/2023) Medications Medication Sig Dispensed Refills Start Date [...] Calcium Immune 650-20-5.5 MG-MCG-MG Oral Tablet Chewable (Calcium-Cholecalcif beverly-Zinc) Take by mouth 2 Tablets daily . 0 Active Womens One Daily Oral Tablet Take by mouth 2 Gum Dosing Unit daily . 0 Active Cyclobenzaprine HCl 5 MG Oral Tablet (Flexeril)Indication s:Neck pain TAKE 1 TABLET BY MOUTH TWICE DAILY NEEDED FOR MUSCLE SPASM 30 Tablet 2 08/29/2021 Active Additional Information Patient not taking.Reported on 02/20/2023 Calcium Carb-Cholecalciferol 600-400 MG-UNIT Oral Tablet 1 Tablet . 0 05/30/2021 Active Adapalene 0.1 % External Gel (Differin) Apply topically to affected area at bedtime . Apply to face and chest and thighs 90 g 11 10/21/2021 Active metroNIDAZOLE 0.75 % External Lotion APPLY TOPICALLY TO FACE TWICE DAILY 59 mL 5 04/17/2022 Active Zinc 50 MG Oral CapsuleIndications:I ntestinal postoperative nonabsorption Take 1 Capsule by mouth [...] (Wellbutrin XL)Indications:Mixed emotional features as adjustment reaction Take 1 Tablet by mouth in the morning. 30 Tablet 5 10/19/2022 Active Bariatric Multivitamins/Iron Oral Capsule Take by mouth. 0 Active Bariatric Fusion Oral Tablet Chewable Take by mouth. Calcium chew 0 Active Wegovy 0.5 MG/0.5ML Subcutaneous Solution Auto-injector (Semaglutide-Weight Management) Inject 0.5 mg under the skin once a week. 2 mL 1 03/01/2023 Active Wegovy 0.25 MG/0.5ML Subcutaneous Solution Auto-injector (Semaglutide-Weight Management) Inject 0.25 mg under the skin once a week. 2 mL 0 03/22/2023 Active Wegovy 1 MG/0.5ML Subcutaneous Solution Auto-injector (Semaglutide-Weight Management) Inject 1 mg under the skin once a week. 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 Overview: Genetic Testing Completed 08/30/2022: Test Result: POSITIVE Gene: PMS2 Variant: Deletion (Exons 12-14) ClinVarID: None This result is consistent with Jackson syndrome Test Ordered: Multi-Cancer Panel at [facility] (84 genes) Genes Included: AIP, ALK, APC, PATTY, AXIN2, BAP1, BARD1, BLM, BMPR1A, BRCA1, BRCA2, BRIP1, CASR, CDC73, CDH1, CDK4, CDKN1B, CDKN1C, CDKN2A (p14ARF), CDKN2A ([id number]), CEBPA, CHEK2, CTNNA1, DICER1, DIS3L2, EGFR, EPCAM, FH, FLCN, GATA2, GPC3, GREM1, HOXB13, HRAS, KIT, MAX, MEN1, MET, MITF, MLH1, MSH2, MSH3, MSH6, MUTYH, NBN, NF1, NF2, NTHL1, PALB2, PDGFRA, PHOX2B, PMS2, POLD1, POLE, POT1, KAEAC2T, PTCH1, PTEN, RAD50, RAD51C, RAD51D, RB1, RECQL4, RET, RUNX1, SDHA, SDHAF2, SDHB, SDHC, SDHD, SMAD4, SMARCA4, SMARCB1, SMARCE1, STK11, SUFU, TERC, TERT, VBGH524, TP53, TSC1, TSC2, VHL, WRN, WT1 Status [...] as of this encounter (statuses as of 04/02/2023) Resolved Problems Problem Noted Date Diagnosed Date [...] MFM consult Pt planning repeat c/s at [facility]. For patients with previous myomectomy involving [...] delivery at 36-37 weeks without amniocentesis per [employer]. Every effort [...] history of myomectomy. Scheduled for 06/25/15 at [facility] History of prior w ith short cervix, [...] as of this encounter (statuses as of 04/02/2023) Immunizations Name Administration Dates Next Due Pneumococcal [...] encounter Miscellaneous Notes * Telephone Encounter - Nathalia Deleon OSA - 04/02/2023 10:14 AM EST Left message on cell to call me about surgery. * Telephone Encounter - Tamiko Baker MD - 04/02/2023 9:59 AM EST Please see message below. Please follow up with Patient to see if General Surgery will still be present. If so, General Surgery (Dr. Kendrick) usually operates out of [facility]. Please find out where she would like surgery. Thanks, Dr. Olivia * Telephone Encounter - Mary Todd OSA - 03/30/2023 3:44 PM EST Patient met with Dr Kendrick regarding surgery. She does not want plastic surgery now. Patient would like a call to see if you need to meet with her prior to scheduling the combined surgery. * Telephone Encounter - Mary Todd OSA - 03/28/2023 2:11 PM EST Scheduled on 03/30/23. * Telephone Encounter - Nava Khoury OSA - 03/28/2023 1:54 PM EST Pt asking about this plz call in the afternoon for pt to schedule * Telephone Encounter - Mary Todd OSA - 03/28/2023 9:49 AM EST Lmom for patient to return my call to schedule with Dr Kendrick. documented in this encounter Plan of Treatment Upcoming Encounters Date Type Department Care Team (Late st Contact Info) Description 04/09/2023 2:15 PM EST Office Visit Dermatology [facility] [address] [place] [address] Duane Perez MD [address] [place] [address] 04/11/2023 12:40 PM EST Office Visit Nutrition & Weight Management, [facility] [address] [place] [address] Joan Bright PA-C [address] [place] [address] 04/26/2023 3:20 PM EST Office Visit [facility] [address] [place] [address] Steffi Zamudio MD [address] [place], [place] [address] 06/07/2023 3:40 PM EDT Office Visit Nutrition & Weight Management, [facility] [address] [place] [address] Joan Bright PA-C [address] [facility] [place] [address] 07/12/2023 3:10 PM EDT Nutrition Services Nutrition & Weight Management, [facility] [address] [facility] [place] [address] Kin[address] Cage RDN 132 [facility] [place] [address] 03/07/2024 11:00 AM EST Telemedicine Hematology Oncology [facility] [address] [place] [address] Malignancy, Multidisciplinary Clinic High Risk Gi [address] [place] [address] Scheduled Procedures Name Priority Associated Diagnoses Date/Ti [...] and were consensually agreed upon. Care Teams Cloud Infrastructure Architect Relationship Specialty Start Date End Date Steffi Zamudio MD [address] [place] [address] PCP - General Internal Medicine 05/04/11 documented as of this encounter
--- OUTSIDE RECORDS SUMMARY | 2023-07-06 23:16 | External Medical Summary | Summary of Care ---
Author Name Unknown Organization [facility] Address [address] [place] [address] Phone [phone] Care Team Providers Care Worship Director Name Role Phone Steffi Zamudio MD Primary Care Provider [phone] Reason for Visit * Reason Comments Follow Up Patient has a few qu estions, thinks she is here to discuss surgery Encounter Details Date Type Department Care Team (Late st Contact Info) Description 03/30/2023 3:15 PM EST Office Visit General Surgery, [facility] [address] [place] [address] Ash Kendrick MD [address] [place] [address] Incisional hernia, without obstruction or gangrene* Allergies Active Allergy Reactions Criticality Noted Date Comments Adhesive Tape Rash 03/23/2021 Band-aides -rash Gluten Rash 07/12/2012 Celiac disease documented as of this encounter (statuses as of 03/30/2023) Medications Medication Sig Dispensed Refills Start Date [...] surgery for weight loss 1000 mcg IM [id number] 08/02/2021 06/04/2023 A ctive documented as of this encounter (statuses as of 03/30/2023) Active Problems Problem Noted Date Diagnosed Date 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 Overview: Genetic Testing Completed 08/30/2022: Test Result: POSITIVE Gene: PMS2 Variant: Deletion (Exons 12-14) ClinVarID: None This result is consistent with Jackson syndrome Test Ordered: Multi-Cancer Panel at [facility] (84 genes) Genes Included: AIP, ALK, APC, PATTY, AXIN2, BAP1, BARD1, BLM, BMPR1A, BRCA1, BRCA2, BRIP1, CASR, CDC73, CDH1, CDK4, CDKN1B, CDKN1C, CDKN2A (p14ARF), CDKN2A ([id number]), CEBPA, CHEK2, CTNNA1, DICER1, DIS3L2, EGFR, EPCAM, FH, FLCN, GATA2, GPC3, GREM1, HOXB13, HRAS, KIT, MAX, MEN1, MET, MITF, MLH1, MSH2, MSH3, MSH6, MUTYH, NBN, NF1, NF2, NTHL1, PALB2, PDGFRA, PHOX2B, PMS2, POLD1, POLE, POT1, DZPMZ3X, PTCH1, PTEN, RAD50, RAD51C, RAD51D, RB1, RECQL4, RET, RUNX1, SDHA, SDHAF2, SDHB, SDHC, SDHD, SMAD4, SMARCA4, SMARCB1, SMARCE1, STK11, SUFU, TERC, TERT, LYCA938, TP53, TSC1, TSC2, VHL, WRN, WT1 Status [...] as of this encounter (statuses as of 03/30/2023) Resolved Problems Problem Noted Date Diagnosed Date [...] MFM consult Pt planning repeat c/s at [facility] 1. For patients with previous myomectomy involving [...] delivery at 36-37 weeks without amniocentesis per [employer]. Every effort [...] history of myomectomy. Scheduled for 06/25/15 at [facility] History of prior w ith short cervix, [...] Rhogam candidate Rhogam given 04/26/2015 Ruthann Parr LUIS ICD-10 update of inactive term Supervision [...] as of this encounter (statuses as of 03/30/2023) Immunizations Name Administration Dates Next Due Pneumococcal [...] as of this encounter Progress Notes * Ash Kendrick MD - 03/30/2023 3:49 PM EST SUBJECTIVE: Parris Gay is a 42 year old female. Chief Complaint Patient presents with Follow Up Patient has a few questions, thinks she is here to discuss surgery HPI: 42-year-old woman presents for evaluation of lower midline hernia. She has had multiple C-sections and a uterine myomectomy. She has large uterine fibroids and is planning for hysterectomy with Dr. Baker. She is here for evaluation of hernia repair at the same time as the hysterectomy. She states that she underwent bariatric surgery in [place] year and half ago and has lost a significantamount of weight. She now has a lopsided lower abdomen with excess fat. She returns to discuss surgical planning. We have been attempting to find a date to do a hysterectomy, hernia repair, abdominoplasty. She is concerned that it will be too much for her to recover fromall at once. I am somewhat concerned about risk of infection given that we will need mesh for her hernia repair. She denies any new symptoms. Past Medical History: Diagnosis Date Celiac sprue 2011 well-controlled with diet Fibroid, uterine 2012 noted during routine OB ultrasound, has never req'd tintervention Headache(784.0) mostly as a child, rare as an adult. Called migraine then. 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 Genetic Testing Completed 08/30/2022: Test Result: POSITIVE Gene: PMS2 Variant: Deletion (Exons 12-14) ClinVarID: None This result is consistent with Jackson syndrome Test Ordered: Multi-Cancer Panel at [facility] (84 genes) Genes Included: AIP, ALK, APC, PATTY, AXIN2, BAP1, BARD1, BLM, BMPR1A, BRCA1, BRCA2, BRIP1, CASR, CDC73, CDH1, CDK4, CDKN1B, CDKN1C, CDKN2A (p14ARF), CDKN2A (p16 Syncope has passed out twice; both in sleep deprived, high stress situations Past Surgical History: Procedure Laterality Date DELIVERY ONLY W/ 02/27/2013 DELIVERY AND CARE performed by Payal House MD at [facility]; spinal DELIVERY ONLY W/ N/A 06/25/2015 DELIVERY AND CARE performed by Mike Valencia MD at [facility] COLONOSCOPY, DIAGNOSTIC (RECTUM) 02/23/2023 COLONOSCOPY FLEXIBLE PROXIMAL DIAGNOSTIC performed by Ketan Hua MD at [facility]OS[facility] DENTAL SURGERY PROCEDURE NEC 03/26/1999 no comps EGD, FLEXIBLE, DIAGNOSTIC 02/23/2023 ESOPHAGOGASTRODUODENOSCOPY (EGD), FLEXIBLE, TRANSORAL, DIAGNOSTIC performed by Ketan Hua MD at ENDOSCOPY [facility] EGD, FLEXIBLE, W/BIOPSY 06/30/2011 biopsies EXPLORATION OF ABDOMEN N/A 07/07/2014 EXPLORATORY LAPAROTOMY performed by Yuri Wiley MD at [facility] GASTRIC BAND PLACEMENT/PORT, LAPAROSCOPIC 05/26/2021 In [place] per patinet's choice INFORMATION (source of fear about GA: her mother had a very difficult time emerging from general anesthetics, and also had myasthenia gravis) LAPAROSCOPY; CHOLECYSTECTOMY 05/25/2021 in [place] LASIK SURGERY 03/26/2011 no comps MYOMECTOMY,5>OR>250G;ABDOM AP N/A 07/07/2014 EXCISION FIBROID TUMORS UTERUS ABDOMINAL APPROACH 5 OR MORE performed by Yuri Wiley MD at [facility] PARTIAL REMOVAL OF LEG BONE(S) 1996x3 no metal, had bone repair right leg & device removal; spinals (one felt incision, converted to GA, hallucinations afterward) REMOVE TONSILS & ADENOIDS, AGE 12+ 03/26/1990 no comps; ga Current Outpatient Medications Medication Sig Dispense Refill Hydroquinone 4 % External Cream Apply to brown spots on face 2x per day for 2 months 28.35 g 1 LORazepam 0.5 MG Oral Tablet (Ativan) Take [...] mouth in the morning. 30 Tablet 5 Wegovy 0.5 MG/0.5ML Subcutaneous Solution Auto-injector (Semaglutide-Weight Management) Inject 0.5 mg under the skin once a week. 2 mL 1 Wegovy 0.25 MG/0.5ML Subcutaneous Solution Auto-injector (Semaglutide-Weight Management) Inject 0.25 mg under the skin once a week. 2 mL 0 Wegovy 1 MG/0.5ML Subcutaneous Solution Auto-injector (Semaglutide-Weight Management) Inject 1 mg under the skin once a week. 2 mL 0 Vitamin D 50 MCG (2000 UT) Oral Capsule Take by mouth 2,000 Units in the morning. Viactiv Calcium Immune 650-20-5.5 MG-MCG-MG Oral Tablet Chewable (Dklkrmg-Zgechdvxaoarduc-Vsuu) Take by mouth 2 Tablets daily . [...] . (Patient not taking: Reported on 01/25/2023) Zinc 50 MG Oral Capsule Take 1 [...] Zamudio MD 1,000 mcg at 01/10/23 1403 Review of patient's allergies indicates: Allergen Reactions Adhesive Tape Rash Band-aides -rash Gluten Rash Celiac disease Social History: Social History Tobacco Use Smoking status: Never Passive exposure: Never Smokeless tobacco: Never Substance Use Topics Alcohol use: No Comment: denies during Vaping/E-Cigarette Use Vaping/E-Cigarette Use Never User Vaping/E-Cigarette Substances Vaping/E-Cigarette Devices ROS As per HPI; otherwise negative OBJECTIVE: PHYSICAL EXAM: There were no vitals taken for this visit. General: alert, healthy, and no distress Head: Normocephalic, No masses, lesions, tenderness or abnormalities Eye Exam: conjunctiva are pink and non-injected, sclera clear Abdomen: abdomen soft, non-tender, and no masses or organomegaly; lower midline 3 cm x 3 cm hernia,reducible, nontender Extremities: no edema, no skin discoloration, no clubbing, no cyanosis Skin: skin color, texture, turgor are normal, no rashes or significant lesions ASSESSMENT: K43.2 Incisional hernia, without obstruction or gangrene (primary encounter diagnosis) PLAN: 42-year-old woman with moderate-sized lower midline hernia, reducible. She would like to hold off on any abdominoplasty at this time. She would like to proceed with the hysterectomy and hernia repair. We discussed the probability of laparoscopic/robotic approach for this surgery. I will discuss this with Dr. Baker for further planning. All her questions were answered, and she is agreeable with this plan. Ash Kendrick MD 03/30/2023 documented in this encounter Plan of Treatment Upcoming Encounters Date Type Department Care Team (Late st Contact Info) Description 04/09/2023 2:15 PM EST Office Visit Dermatology [address] [place] [address] Duane Perez MD [address] [place] [address] [place] [address] 04/11/2023 12:40 PM EST Office Visit Nutrition & Weight Management, [facility] [address] [place] [address] Joan Bright PA-C [address] [place] [address] 04/26/2023 3:20 PM EST Office Visit General Internal Medicine [address] [place] [address] Steffi Zamudio MD [address] [place] [address] [place] [address] 06/07/2023 3:40 PM EDT Office Visit Nutrition & Weight Management, [facility] [address] [place] [address] Joan Bright PA-C [address] [place] [address] 07/12/2023 3:10 PM EDT Nutrition Services Nutrition & Weight Management, [facility] [address] [place] [address] Kinsey Cage RDN [address] [place] [address] 03/07/2024 11:00 AM EST Telemedicine Hematology Oncology [facility] [address] [place] [address] Malignancy, Multidisciplinary Clinic High Risk Gi [address], [place] [phone] Scheduled Procedures Name Priority Associated Diagnoses Date/Ti [...] as of this encounter Visit Diagnoses Diagnosis Incisional hernia, without obstruction or gangrene- Primary Incisional hernia without mention of obstruction or gangrene documented in this encounter Advance Directives Latest [...] and were consensually agreed upon. Care Teams Worship Director Relationship Specialty Start Date End Date Steffi Zamudio MD [address] [place] [address] PCP - General Internal Medicine 05/04/11 documented as of this encounter
--- OUTSIDE RECORDS SUMMARY | 2023-07-06 23:16 | External Medical Summary | Summary of Care ---
Author Name Unknown Organization [facility] Address [address] [place] [address] Phone [phone] Care Team Providers Care Velvet Steamer Name Role Phone Steffi Zamudio MD Primary Care Provider [phone] Reason for Visit * Reason Onset Date Comments Surgery 03/15/2023 Encounter Details Date Type Department Care Team (Late st Contact Info) Description 03/15/2023 Telephone Gynecology/Obstetrics [facility] [address] [facility] [place] [phone] Tamiko Baker MD [address] [facility] [place] [address] Surgery Allergies Active Allergy Reactions Criticality Noted Date Comments Adhesive Tape Rash 03/23/2021 Band-aides -rash Gluten Rash 07/12/2012 Celiac disease documented as of this encounter (statuses as of 04/05/2023) Medications Medication Sig Dispensed Refills Start Date [...] a week. 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 Overview: Genetic Testing Completed 08/30/2022: Test Result: POSITIVE Gene: PMS2 Variant: Deletion (Exons 12-14) ClinVarID: None This result is consistent with Jackson syndrome Test Ordered: Multi-Cancer Panel at [facility] (84 genes) Genes Included: AIP, ALK, APC, PATTY, AXIN2, BAP1, BARD1, BLM, BMPR1A, BRCA1, BRCA2, BRIP1, CASR, CDC73, CDH1, CDK4, CDKN1B, CDKN1C, CDKN2A (p14ARF), CDKN2A (t90DPQ5d), CEBPA, CHEK2, CTNNA1, DICER1, DIS3L2, EGFR, EPCAM, FH, FLCN, GATA2, GPC3, GREM1, HOXB13, HRAS, KIT, MAX, MEN1, MET, MITF, MLH1, MSH2, MSH3, MSH6, MUTYH, NBN, NF1, NF2, NTHL1, PALB2, PDGFRA, PHOX2B, PMS2, POLD1, POLE, POT1, TJSDC1T, PTCH1, PTEN, RAD50, RAD51C, RAD51D, RB1, RECQL4, RET, RUNX1, SDHA, SDHAF2, SDHB, SDHC, SDHD, SMAD4, SMARCA4, SMARCB1, SMARCE1, STK11, SUFU, TERC, TERT, TYNC336, TP53, TSC1, TSC2, VHL, WRN, WT1 Status [...] as of this encounter (statuses as of 04/05/2023) Resolved Problems Problem Noted Date Diagnosed Date [...] consult Pt planning repeat c/s at [facility] 1. For [...] delivery at 36-37 weeks without amniocentesis per [employer]. Every effort [...] of myomectomy. Scheduled for 06/25/15 at [facility] History of [...] indicate that she had a previous infection. M EFW = 1487 01/10 (<3%) Reviewed the [...] as of this encounter (statuses as of 04/05/2023) Immunizations Name Administration Dates Next Due Pneumococcal [...] encounter Miscellaneous Notes * Telephone Encounter - Tamiko Baker MD - 03/28/2023 3:46 PM EST Patient may need to have multiple procedures done if not feasible to coordinate at [facility], or go to [facility] which might be easier due to schedule (in order to have all specialities present). I would not hold the date as this time since she needs to follow up with Dr. Kendrick (if there are other cases for surgery). Or we can wait till her appointment with Dr. Kendrick to assess next steps. Thanks, Dr. Baker * Telephone Encounter - Nathalia Deleon OSA - 03/28/2023 9:58 AM EST I reached out to Dr. Mendosa office again today to see if 06/10 would work this is his response [9:47 AM] Mary Todd ok he is second guessing this case. he wants me to bring the patient in to see her. His ticket scheduler left a message to have the pt call them to set up an appt. Do you still want me to hold the date for 06/10 or do you want to maybe try for June? * Telephone Encounter - Tamiko Baker MD - 03/16/2023 12:44 PM EST Images from the original note were not included. This was Dr. Martin staff message: Emory Martin MD Lanciano, Chelsa D, OSA; Tamiko Baker MD; Ash Kendrick MD Cc: Clau Saenz RN; Isabell Estrada OSA 06/10 would potentially work for me. I have cleft clinic that day so it would have to be cancelled. I'm not sure if there are other dates, but if not, I think I can make 06/10 work. Nathalia, If May doesn't work, then maybe June 2023. * Telephone Encounter - Nathalia Deleon OSA - 03/15/2023 1:[address] Baker I reached out to Dr. Martin's office - plastic surgery- about coordinating a surgery date. The 2 dates I gave them that you are available he is not. He has cleft clinic on 06/10 and is in an all day surgery on 06/17 I didn't reach out to General surgery Dr. Kendrick's office yet because the other doctor isn't available. What are your thoughts? Should we try for June or do you have another idea? documented in this encounter Plan of Treatment Upcoming Encounters Date Type Department Care Team (Late st Contact Info) Description 04/09/2023 2:15 PM EST Office Visit Dermatology [facility] [place] [address] [place] [address] Duane Perez MD [address] [place] [address] 04/11/2023 12:40 PM EST Office Visit Nutrition & Weight Management, [facility] [address] [place] [address] Joan Bright PA-C [address] [place] [address] 04/26/2023 3:20 PM EST Office Visit General Internal Medicine [facility] [address] [facility] [place] [address] Steffi Zamudio MD 200 [facility] [place] [address] 06/07/2023 3:40 PM EDT Office Visit Nutrition & Weight Management, [facility] [address] [place] [address] Joan Bright, SHANDA [address] [place] [address] 07/12/2023 3:10 PM EDT Nutrition Services Nutrition & Weight Management, [facility] [address] [place] [address] Kinsey Cage RDN [address] [place] [address] 03/07/2024 11:00 AM EST Telemedicine Hematology Oncology [facility] [address] [place] [address] Malignancy, Multidisciplinary Clinic High Risk Gi [address] [facility] [place] [phone] Scheduled Procedures Name Priority Associated Diagnoses Date/Ti [...] and were consensually agreed upon. Care Teams Velvet Steamer Relationship Specialty Start Date End Date Steffi Zamudio MD [address] [facility] [place] [address] PCP - General Internal Medicine 05/04/11 documented as of this encounter
--- OUTSIDE RECORDS SUMMARY | 2023-07-06 23:16 | External Medical Summary | Summary of Care ---
Author Name Unknown Organization [facility] Address [address] [place] [address] Phone [phone] Care Team Providers Care Cash Grain Farmer Name Role Phone Steffi Zamudio MD Primary Care Provider [phone] Reason for Visit * Reason Onset Date Comments Advice 03/27/2023 Encounter Details Date Type Department Care Team (Late st Contact Info) Description 03/27/2023 Telephone General Internal Medicine [facility] Choudhary [address] [place] [address] Steffi Zamudio MD [address] [place] [address] Advice Allergies Active Allergy Reactions Criticality Noted Date Comments Adhesive Tape Rash 03/23/2021 Band-aides -rash Gluten Rash 07/12/2012 Celiac disease documented as of this encounter (statuses as of 03/28/2023) Medications Medication Sig Dispensed Refills Start Date [...] surgery for weight loss 1000 mcg IM [id number] 08/02/2021 06/04/2023 A ctive documented as of this encounter (statuses as of 03/28/2023) Active Problems Problem Noted Date Diagnosed Date [...] CDH1, CDK4, CDKN1B, CDKN1C, CDKN2A (p14ARF), CDKN2A (o71SNH6m), CEBPA, CHEK2, CTNNA1, DICER1, DIS3L2, EGFR, EPCAM, FH, FLCN, GATA2, GPC3, GREM1, HOXB13, HRAS, KIT, MAX, MEN1, MET, MITF, MLH1, MSH2, MSH3, MSH6, MUTYH, NBN, NF1, NF2, NTHL1, PALB2, PDGFRA, PHOX2B, PMS2, POLD1, POLE, POT1, TBIYT1B, PTCH1, PTEN, RAD50, RAD51C, RAD51D, RB1, RECQL4, RET, RUNX1, SDHA, SDHAF2, SDHB, SDHC, SDHD, SMAD4, SMARCA4, SMARCB1, SMARCE1, STK11, SUFU, TERC, TERT, GAWN713, TP53, TSC1, TSC2, VHL, WRN, WT1 Status [...] as of this encounter (statuses as of 03/28/2023) Resolved Problems Problem Noted Date Diagnosed Date [...] MFM consult Pt planning repeat c/s at [facility] 1. For patients [...] delivery at 36-37 weeks without amniocentesis per [employer]. Every effort [...] history of myomectomy. Scheduled for 06/25/15 at [facility] History of prior [...] BRET contaminated Patient given flu vaccine. 12/10/2012 Vtia Bundy RN 12/17/2012 Tdap Vaccinedeferred Pt given [...] as of this encounter (statuses as of 03/28/2023) Immunizations Name Administration Dates Next Due Pneumococcal [...] encounter Miscellaneous Notes * Telephone Encounter - Nava Khoury OSA - 03/28/2023 1:53 PM EST Called pt and she declined appt until she is seen at [facility] unless issue gets worse then she will call in to schedule FYI * Telephone Encounter - Steffi Zamudio MD - 03/27/2023 8:58 PM EST Suggest visit for eval * Telephone Encounter - Dary Patrick OSA - 03/27/2023 12:24 PM EST Pt called to ask what ointments she can use 1) she has a 3rd degree burn on her finger and been hurting for about 2 weeks she wanting to know what cream to use to help the pain. She states she does not have pain now. 2) she has a rash under her arm that is very itchy and dry. She says when she scratches it relievesthe pain but then it gets intense. She thought it was the deodorant but its not. Wanting to know what ointment to take for it. documented in this encounter Plan of Treatment Upcoming Encounters Date Type Department Care Team (Late st Contact Info) Description 03/30/2023 3:15 PM EST Office Visit General Surgery, [facility] [address] [place] [address] Ash Kendrick MD [address] [facility] [place] [address] 04/09/2023 2:15 PM EST Office Visit Dermatology [facility] [address] [facility] [place] [address] Duane Perez MD [address] [facility] [place] [address] 04/11/2023 12:40 PM EST Office Visit Nutrition & Weight Management, [facility] [place] [address] Joan Bright PA-C [facility] [address] 04/19/2023 11:00 AM EST Office Visit Plastic Surgery, [place] [address] [place] [address] Emory Martin MD [address], [place] [phone] 04/26/2023 3:20 PM EST Office Visit General Internal Medicine [facility] [address] [place] [address] Steffi Zamudio MD [address] [place] [address] 06/07/2023 3:40 PM EDT Office Visit Nutrition & Weight Management, [facility] [place] [address] Joan Bright PA-C [address] [place] [address] 07/12/2023 3:10 PM EDT Nutrition Services Nutrition & Weight Management, [facility] 132 [facility] [place] [address] Kinsey Cage RDN [address] [facility] [address] 03/07/2024 11:00 AM EST Telemedicine Hematology Oncology [facility] [address] [place] [address] Malignancy, Multidisciplinary Clinic High Risk Gi [address] [place], [place] [phone] Scheduled Procedures Name Priority Associated Diagnoses Date/Ti [...] and were consensually agreed upon. Care Teams Cash Grain Farmer Relationship Specialty Start Date End Date Steffi Zamudio MD [address] [facility] [place] [address] PCP - General Internal Medicine 05/04/11 documented as of this encounter
--- OUTSIDE RECORDS SUMMARY | 2023-07-06 23:16 | External Medical Summary | Summary of Care ---
Author Name Unknown Organization [facility] Address [address] [place] [address] Phone [phone] Care Team Providers Care Animal Ecologist Name Role Phone Steffi Zamudio MD Primary Care Provider [phone] Encounter Details Date Type Department Care Team (Late st Contact Info) Description 04/11/2023 Telephone Dermatology [facility] State Glenn Choudhary [address] [place] [address] Duane Perez MD [address] [place] [address] Allergies Active Allergy Reactions Criticality Noted Date [...] a week. 2 mL 0 03/27/2023 Active Dapsone 5 % External GelIndications:Acne vulgaris Apply to acne on face and chest 60 g 2 04/09/2023 Active Hydrocortisone 2.5 % External Cream Apply to rash in left armpit twice daily for 10-14 days 30 g 1 04/11/2023 Active Hospital, Clinic, or Other Facility Administered Medication Ordered Dose Route Frequency Start Date End Date Status vitamin b-12 (Cyanocobalamin) inj 1,000 mcgIndications:Status following gastric banding surgery for weight loss 1000 mcg IM [id number] 08/02/2021 06/04/2023 A ctive documented as of this encounter (statuses as of 04/11/2023) Active Problems Problem Noted Date Diagnosed Date 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 Overview: Genetic Testing Completed 08/30/2022: Test Result: POSITIVE Gene: PMS2 Variant: Deletion (Exons 12-14) ClinVarID: None This result is consistent with Jackson syndrome Test Ordered: Multi-Cancer Panel at [facility] (84 genes) Genes Included: AIP, ALK, APC, PATTY, AXIN2, BAP1, BARD1, BLM, BMPR1A, BRCA1, BRCA2, BRIP1, CASR, CDC73, CDH1, CDK4, CDKN1B, CDKN1C, CDKN2A (p14ARF), CDKN2A ([id number]), CEBPA, CHEK2, CTNNA1, DICER1, DIS3L2, EGFR, EPCAM, FH, FLCN, GATA2, GPC3, GREM1, HOXB13, HRAS, KIT, MAX, MEN1, MET, MITF, MLH1, MSH2, MSH3, MSH6, MUTYH, NBN, NF1, NF2, NTHL1, PALB2, PDGFRA, PHOX2B, PMS2, POLD1, POLE, POT1, DFDUD8I, PTCH1, PTEN, RAD50, RAD51C, RAD51D, RB1, RECQL4, RET, RUNX1, SDHA, SDHAF2, SDHB, SDHC, SDHD, SMAD4, SMARCA4, SMARCB1, SMARCE1, STK11, SUFU, TERC, TERT, NISS028, TP53, TSC1, TSC2, VHL, WRN, WT1 Status [...] MFM consult Pt planning repeat c/s at [facility] 1. For patients [...] delivery at 36-37 weeks without amniocentesis per [employer]. Every effort [...] history of myomectomy. Scheduled for 06/25/15 at [facility] History of prior [...] Telephone Encounter - Duane Perez MD - 04/11/2023 10:03 AM EST Called patient to follow up SAUNDRA scraping from left armpit. No answer, LMOM Will send HCT cream to apply twice daily for 2 weeks documented in this encounter Plan of Treatment Upcoming Encounters Date Type Department Care Team (Late st Contact Info) Description 04/11/2023 12:40 PM EST Office Visit Nutrition & Weight Management, [facility] [address] [place] [address] Joan Bright PA-C [address] [place] [address] 04/26/2023 3:20 PM EST Office Visit General Internal Medicine [facility] [address] [place] [address] Steffi Zamudio MD [address] [place] [address] 06/07/2023 3:40 PM EDT Office Visit Nutrition & Weight Management, [facility] [address] [place] [address] Joan Bright PA-C [address] [place] [address] 07/12/2023 3:10 PM EDT Nutrition Services Nutrition & Weight Management, [facility] [address] [place] [address] Kinsey Cage RDN [address] [place] [address] 10/05/2023 1:30 PM EDT Office Visit Dermatology [facility] [address] [place] [address] Duane Perez MD 200 [facility] [address] 03/07/2024 11:00 AM EST Telemedicine Hematology Oncology [facility] [address] [place] [phone] Malignancy, Multidisciplinary Clinic High Risk [facility] [address] [place] [facility] [address] 05/16/2024 1:30 PM EST Office Visit Dermatology [place] Glenn Lyles [address] [place] [address] Duane Perez MD 200 [facility] [place] [address] Scheduled Procedures Name Priority Associated Diagnoses Date/Ti [...] and were consensually agreed upon. Care Teams Animal Ecologist Relationship Specialty Start Date End Date Steffi Zamudio MD [address] [place] [address] PCP - General Internal Medicine 05/04/11 documented as of this encounter
--- OUTSIDE RECORDS SUMMARY | 2023-07-06 23:16 | External Medical Summary | Summary of Care ---
Author Name Unknown Organization [facility] Address [address] [place] [address] Phone [phone] Care Team Providers Care Quilt Sewer Name Role Phone Steffi Zamudio MD Primary Care Provider [phone] Encounter Details Date Type Department Care Team (Late st Contact Info) Description 03/29/2023 Telephone Nutrition & Weight Management, [facility] [address] [place] [address] Services, Scheduling [address] [place] [address] Allergies Active Allergy Reactions Criticality Noted Date [...] surgery for weight loss 1000 mcg IM [id number] 08/02/2021 06/04/2023 A ctive documented as of this encounter (statuses as of 03/30/2023) Active Problems Problem Noted Date Diagnosed Date 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 Overview: Genetic Testing Completed 08/30/2022: Test Result: POSITIVE Gene: PMS2 Variant: Deletion (Exons 12-14) ClinVarID: None This result is consistent with Jackson syndrome Test Ordered: Multi-Cancer Panel at [facility] (84 genes) Genes Included: AIP, ALK, APC, PATTY, AXIN2, BAP1, BARD1, BLM, BMPR1A, BRCA1, BRCA2, BRIP1, CASR, CDC73, CDH1, CDK4, CDKN1B, CDKN1C, CDKN2A (p14ARF), CDKN2A ([id number]), CEBPA, CHEK2, CTNNA1, DICER1, DIS3L2, EGFR, EPCAM, FH, FLCN, GATA2, GPC3, GREM1, HOXB13, HRAS, KIT, MAX, MEN1, MET, MITF, MLH1, MSH2, MSH3, MSH6, MUTYH, NBN, NF1, NF2, NTHL1, PALB2, PDGFRA, PHOX2B, PMS2, POLD1, POLE, POT1, LFPED1A, PTCH1, PTEN, RAD50, RAD51C, RAD51D, RB1, RECQL4, RET, RUNX1, SDHA, SDHAF2, SDHB, SDHC, SDHD, SMAD4, SMARCA4, SMARCB1, SMARCE1, STK11, SUFU, TERC, TERT, [id number], TP53, TSC1, TSC2, VHL, WRN, WT1 Status [...] consult Pt planning repeat c[place] [facility] [place]. For patients with [...] delivery at 36-37 weeks without amniocentesis per [employer]. Every effort [...] of myomectomy. [place]15 [place] [facility] [place] of prior w [...] encounter Miscellaneous Notes * Telephone Encounter - Cheryl Gimenez PHARM Tech - 03/30/2023 2:22 PM EST Pt calling to check on status of rx. Caller can be reached at [phone]. Cheryl Mars Assistant Director Of Security [facility]ized [facility] Services (CCPS) 03/30/2023,2:22 PM * Telephone Encounter - Manda Manzo LPN - 03/30/2023 12:52 PM EST Called pharmacy. Gave verbal order for Wegovy 1mg * Telephone Encounter - Héctor Han OSA - 03/29/2023 5:50 PM EST Pt called in regards to asking about her recent medication that was sent over to the [facility] pharmacy. She called them twice and they stated they had not received the order. They did let the pt know they are having issues with receiving escipts lately. They would prefer that if possible you could call over to the pharmacy instead. Please advise. Thank you documented in this encounter Plan of Treatment Upcoming Encounters Date Type Department Care Team (Late st Contact Info) Description 03/30/2023 3:15 PM EST Office Visit General Surgery, [facility] 132 [facility] [place] [address] Ash Kendrick MD 132 [facility] [place] [address] 04/09/2023 2:15 PM EST Office Visit Dermatology [facility] 200 [facility] [place] [address] Duane Perez MD 200 [facility] [place] [address] 04/11/2023 12:40 PM EST Office Visit Nutrition & Weight Management, [facility] 132 [facility] [place] [address] Joan Bright PA-C 132 [facility] [place] [address] 04/19/2023 11:00 AM EST Office Visit Plastic Surgery, [place] [address] [place] [address] Emory Martin MD [address] [place] [address] 04/26/2023 3:20 PM EST Office Visit General Internal Medicine [facility] 200 [facility] [place] [address] Steffi Zamudio MD [address] [facility] [place] [address] 06/07/2023 3:40 PM EDT Office Visit Nutrition & Weight Management, [facility] [address] [place] [address] Joan Bright PA-C [address] [place] [address] 07/12/2023 3:10 PM EDT Nutrition Services Nutrition & Weight Management, [facility] [address] [place] [address] Kinsey Cage RDN [facility] [place] [address] 03/07/2024 11:00 AM EST Telemedicine Hematology Oncology [facility] [address] [place] [address] Malignancy, Multidisciplinary Clinic High Risk Gi [address] [place] [address] Scheduled Procedures Name Priority Associated [...] and were consensually agreed upon. Care Teams Quilt Sewer Relationship Specialty Start Date End Date Steffi Zamudio MD 200 [place] [address] PCP - General Internal Medicine 05/04/11 documented as of this encounter
--- OUTSIDE RECORDS SUMMARY | 2023-07-06 23:16 | External Medical Summary | Summary of Care ---
Author Name Unknown Organization [facility] Address [address] [place] [address] Phone [phone] Care Team Providers Care Attendant Coin Operated Laundry Name Role Phone Steffi Zamudio MD Primary Care Provider [phone] Reason for Visit * Reason Onset Date Comments Appointment 03/28/2023 Encounter Details Date Type Department Care Team (Late st Contact Info) Description 03/28/2023 Telephone General Surgery, [facility] [address] [place] [address] Ash Kendrick MD [address] [facility], [place] [phone] Appointment Allergies Active Allergy Reactions Criticality Noted [...] surgery for weight loss 1000 mcg IM [id number] 08/02/2021 06/04/2023 A ctive documented as of this encounter (statuses as of 04/02/2023) Active Problems Problem Noted Date Diagnosed Date 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 Overview: Genetic Testing Completed 08/30/2022: Test Result: POSITIVE Gene: PMS2 Variant: Deletion (Exons 12-14) ClinVarID: None This result is consistent with Jackson syndrome Test Ordered: Multi-Cancer Panel at [facility] (84 genes) Genes Included: AIP, ALK, APC, PATTY, AXIN2, BAP1, BARD1, BLM, BMPR1A, BRCA1, BRCA2, BRIP1, CASR, CDC73, CDH1, CDK4, CDKN1B, CDKN1C, CDKN2A (p14ARF), CDKN2A ([id number]), CEBPA, CHEK2, CTNNA1, DICER1, DIS3L2, EGFR, EPCAM, FH, FLCN, GATA2, GPC3, GREM1, HOXB13, HRAS, KIT, MAX, MEN1, MET, MITF, MLH1, MSH2, MSH3, MSH6, MUTYH, NBN, NF1, NF2, NTHL1, PALB2, PDGFRA, PHOX2B, PMS2, POLD1, POLE, POT1, JDULU0F, PTCH1, PTEN, RAD50, RAD51C, RAD51D, RB1, RECQL4, RET, RUNX1, SDHA, SDHAF2, SDHB, SDHC, SDHD, SMAD4, SMARCA4, SMARCB1, SMARCE1, STK11, SUFU, TERC, TERT, EHKV205, TP53, TSC1, TSC2, VHL, WRN, WT1 Status [...] Surgery (Dr. Kendrick) usually operates out of [facility]. Please find out where she would like surgery. Thanks, Dr. Baker * Telephone Encounter - Mary Todd OSA [...] 04/09/2023 2:15 PM EST Office Visit Dermatology [facility] [address] [place] [address] Duane Perez MD [address] [place] [address] 04/11/2023 12:40 PM EST Office Visit Nutrition & Weight Management, [facility] [address] [place] [address] Joan Bright PA-C [address] [place] [place] [address] 04/26/2023 3:20 PM EST Office Visit General Internal Medicine [facility] [address] [place] [address] Steffi Zamudio MD [address] [place] [address] 06/07/2023 3:40 PM EDT Office Visit Nutrition & Weight Management, [facility] [address] [place] [address] Joan Bright PA-C [address] [place] [address] 07/12/2023 3:10 PM EDT Nutrition Services Nutrition & Weight Management, [facility] [address] [place] [address] Kinsey Cage RDN [facility] [place] [address] 03/07/2024 11:00 AM EST Telemedicine Hematology Oncology [facility] [address] [place] [phone] Malignancy, Multidisciplinary Clinic High Risk Gi [address] [place], [place] [phone] Scheduled Procedures Name Priority Associated Diagnoses Date/Ti [...] and were consensually agreed upon. Care Teams Attendant Coin Operated Laundry Relationship Specialty Start Date End Date Steffi Zamudio MD [address] [place] [address] PCP - General Internal Medicine 05/04/11 documented as of this encounter
--- OUTSIDE RECORDS SUMMARY | 2023-07-06 23:16 | External Medical Summary | Summary of Care ---
Author Name Unknown Organization [facility] Address [address] [place] [address] Phone [phone] Care Team Providers Care Office Machine Repair Shop Supervisor Name Role Phone Steffi Zamudio MD Primary Care Provider [phone] Reason for Visit * Reason Onset Date Comments Appointment 03/28/2023 Encounter Details Date Type Department Care Team (Late st Contact Info) Description 03/28/2023 Telephone General Surgery, [facility] [address] [place] [address] Ash Kendrick MD [address] [facility], [place] [phone] Appointment Allergies Active Allergy Reactions Criticality Noted [...] surgery for weight loss 1000 mcg IM [id number] 08/02/2021 06/04/2023 A ctive documented as of this encounter (statuses as of 03/30/2023) Active Problems Problem Noted Date Diagnosed Date 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 Overview: Genetic Testing Completed 08/30/2022: Test Result: POSITIVE Gene: PMS2 Variant: Deletion (Exons 12-14) ClinVarID: None This result is consistent with Jackson syndrome Test Ordered: Multi-Cancer Panel at [facility] (84 genes) Genes Included: AIP, ALK, APC, PATTY, AXIN2, BAP1, BARD1, BLM, BMPR1A, BRCA1, BRCA2, BRIP1, CASR, CDC73, CDH1, CDK4, CDKN1B, CDKN1C, CDKN2A (p14ARF), CDKN2A (p56TTX4c), CEBPA, CHEK2, CTNNA1, DICER1, DIS3L2, EGFR, EPCAM, FH, FLCN, GATA2, GPC3, GREM1, HOXB13, HRAS, KIT, MAX, MEN1, MET, MITF, MLH1, MSH2, MSH3, MSH6, MUTYH, NBN, NF1, NF2, NTHL1, PALB2, PDGFRA, PHOX2B, PMS2, POLD1, POLE, POT1, [id number], PTCH1, PTEN, RAD50, RAD51C, RAD51D, RB1, RECQL4, RET, RUNX1, SDHA, SDHAF2, SDHB, SDHC, SDHD, SMAD4, SMARCA4, SMARCB1, SMARCE1, STK11, SUFU, TERC, TERT, AMJR534, TP53, TSC1, TSC2, VHL, WRN, WT1 Status [...] Pt [place] [facility] [place]. [...] delivery at 36-37 weeks without amniocentesis per [employer]. Every [...] myomectomy. [place] [facility] History [...] 04/09/2023 2:15 PM EST Office Visit Dermatology [facility] 200 [facility] [address] [address] Duane Perez MD 200 [facility] [place] [address] 04/11/2023 12:40 PM EST Office Visit Nutrition & Weight Management, [facility] [address] [place] [address] Joan Bright PA-C [address] [place] [address] 04/26/2023 3:20 PM EST Office Visit General Internal Medicine [facility] [address] [place] [address] Steffi Zamudio MD 200 [facility] [address] [facility] [place] [address] 06/07/2023 3:40 PM EDT Office Visit Nutrition & Weight Management, [facility] [address] [place] [address] Joan Bright PA-C [address] [place] [address] 07/12/2023 3:10 PM EDT Nutrition Services Nutrition & Weight Management, [facility] [address] [place] [address] Kinsey Cage RDN [address] [place] [address] 03/07/2024 11:00 AM EST Telemedicine Hematology Oncology [facility] [address] [place] [address] Malignancy, Multidisciplinary Clinic High Risk Gi [address] [place] [address] Scheduled Procedures Name Priority Associated [...] and were consensually agreed upon. Care Teams Office Machine Repair Shop Supervisor Relationship Specialty Start Date End Date Steffi Zamudio MD 200 [facility] [place] [address] PCP - General Internal Medicine 05/04/11 documented as of this encounter
--- OUTSIDE RECORDS SUMMARY | 2023-07-06 23:16 | External Medical Summary | Summary of Care ---
Author Name Unknown Organization [facility] Address [address] [place] [address] Phone [phone] Care Team Providers Care Credit Union Examiner Name Role Phone Steffi Zamudio MD Primary Care Provider [phone] Encounter Details Date Type Department Care Team (Late st Contact Info) Description 03/29/2023 Telephone Nutrition & Weight Management, [facility] [address] [place] [address] Services, Scheduling [address] [place] [address] Allergies Active Allergy Reactions Criticality Noted Date [...] surgery for weight loss 1000 mcg IM [id number] 08/02/2021 06/04/2023 A ctive documented as of [...] CDH1, CDK4, CDKN1B, CDKN1C, CDKN2A (p14ARF), CDKN2A ([id number]), CEBPA, CHEK2, CTNNA1, DICER1, DIS3L2, EGFR, EPCAM, FH, FLCN, GATA2, GPC3, GREM1, HOXB13, HRAS, KIT, MAX, MEN1, MET, MITF, MLH1, MSH2, MSH3, MSH6, MUTYH, NBN, NF1, NF2, NTHL1, PALB2, PDGFRA, PHOX2B, PMS2, POLD1, POLE, POT1, GHIWW6B, PTCH1, PTEN, RAD50, RAD51C, RAD51D, RB1, RECQL4, RET, RUNX1, SDHA, SDHAF2, SDHB, SDHC, SDHD, SMAD4, SMARCA4, SMARCB1, SMARCE1, STK11, SUFU, TERC, TERT, [id number], TP53, TSC1, TSC2, VHL, WRN, WT1 Status [...] delivery at 36-37 weeks without amniocentesis per [employer]. Every effort [...] encounter Miscellaneous Notes * Telephone Encounter - Manda Manzo LPN - 03/30/2023 12:52 PM EST Called pharmacy. Gave verbal order for Wegovy 1mg * Telephone Encounter - Héctor Han OSA - 03/29/2023 5:50 PM EST Pt called in regards to asking about her recent medication that was sent [facility] to [facility] pharmacy. She called them twice and they [...] 3:15 PM EST Office Visit General Surgery, [facility] [address] [place] [address] Ash Kendrick MD [address] [place] [address] 04/09/2023 2:15 PM EST Office Visit Dermatology [facility] 200 [facility] [address] [place] [address] Duane Perez MD 200 [facility] [place] [address] 04/11/2023 12:40 PM EST Office Visit Nutrition & Weight Management, [facility] [place] [address] Joan Bright PA-C [address] [facility] [place] [address] 04/19/2023 11:00 AM EST Office Visit Plastic Surgery, [place] [address] [place] [address] Emory Martin MD [address] [place] [address] 04/26/2023 3:20 PM EST Office Visit General Internal Medicine [facility] [address] [place] [address] Steffi Zamudio MD [address] [place] [address] 06/07/2023 3:40 PM EDT Office Visit Nutrition & Weight Management, [facility] [place] [address] Joan Bright PA-C [address] [place] [address] 07/12/2023 3:10 PM EDT Nutrition Services Nutrition & Weight Management, [facility] [address] [place] [address] Kinsey Cage, [place] [address] [place] [address] 03/07/2024 11:00 AM EST Telemedicine Hematology Oncology [facility] [address] [place] [address] Malignancy, Multidisciplinary Clinic High Risk Gi [address] [place] [address] Scheduled Procedures Name Priority Associated [...] and were consensually agreed upon. Care Teams Credit Union Examiner Relationship Specialty Start Date End Date Steffi Zamudio MD 200 [facility] [place] [address] PCP - General Internal Medicine 05/04/11 documented as of this encounter
--- OUTSIDE RECORDS SUMMARY | 2023-07-06 23:16 | External Medical Summary | Summary of Care ---
Author Name Unknown Organization [facility] Address [address] [place] [address] Phone [phone] Care Team Providers Care Discotheque Dancer Name Role Phone Steffi Zamudio MD Primary Care Provider [phone] Encounter Details Date Type Department Care Team (Late st Contact Info) Description 04/10/2023 Telephone Dermatology [facility] Glenn Choudhary [address] [place] [address] Duane Perez MD [address] [place] [address] Allergies Active Allergy Reactions Criticality Noted Date Comments Adhesive Tape Rash 03/23/2021 Band-aides -rash Gluten Rash 07/12/2012 Celiac disease documented as of this encounter (statuses as of 04/10/2023) Medications Medication Sig Dispensed Refills Start Date [...] and chest 60 g 2 04/09/2023 Active Hospital, Clinic, or Other Facility Administered Medication Ordered Dose Route Frequency Start Date End Date Status vitamin b-12 (Cyanocobalamin) inj 1,000 mcgIndications:Status following gastric banding surgery for weight loss 1000 mcg IM [id number] 08/02/2021 06/04/2023 A ctive documented as of this encounter (statuses as of 04/10/2023) Active Problems Problem Noted Date Diagnosed Date [...] CDH1, CDK4, CDKN1B, CDKN1C, CDKN2A (p14ARF), CDKN2A (z69SYC9l), CEBPA, CHEK2, CTNNA1, DICER1, DIS3L2, EGFR, EPCAM, FH, FLCN, GATA2, GPC3, GREM1, HOXB13, HRAS, KIT, MAX, MEN1, MET, MITF, MLH1, MSH2, MSH3, MSH6, MUTYH, NBN, NF1, NF2, NTHL1, PALB2, PDGFRA, PHOX2B, PMS2, POLD1, POLE, POT1, XTUWN6T, PTCH1, PTEN, RAD50, RAD51C, RAD51D, RB1, RECQL4, RET, RUNX1, SDHA, SDHAF2, SDHB, SDHC, SDHD, SMAD4, SMARCA4, SMARCB1, SMARCE1, STK11, SUFU, TERC, TERT, [id number], TP53, TSC1, TSC2, VHL, WRN, WT1 Status [...] as of this encounter (statuses as of 04/10/2023) Resolved Problems Problem Noted Date Diagnosed Date [...] MFM consult Pt planning repeat c/s at [facility]. For patients with previous myomectomy involving [...] delivery at 36-37 weeks without amniocentesis per [employer]. Every effort [...] history of myomectomy. Scheduled for 06/25/15 at [facility] History of prior w ith short cervix, [...] as of this encounter (statuses as of 04/10/2023) Immunizations Name Administration Dates Next Due Pneumococcal [...] of Care: specialty medication - route to [id number]. Referral to pharmacist for: No Pharmacist involvement needed See corresponding visit note(s) for additional supporting clinical information. Office Information: Prescriber: Duane Perez MD documented in this encounter Plan of Treatment Upcoming Encounters Date Type Department Care Team (Late st Contact Info) Description 04/11/2023 12:40 PM EST Office Visit Nutrition & Weight Management, [facility] 132 [facility] [place] [address] Joan Bright PA-C [address] [place] [address] 04/26/2023 3:20 PM EST Office Visit General Internal Medicine [facility] [address] [place] [address] Steffi Zamudio MD [address] [place] [address] 06/07/2023 3:40 PM EDT Office Visit Nutrition & Weight Management, [facility] [address] [place] [address] Joan Bright PA-C 132 [facility] [place] [address] 07/12/2023 3:10 PM EDT Nutrition Services Nutrition & Weight Management, [facility] 132 [facility] [place] [address] Kinsey Cage RDN [facility] [place] [address] 10/05/2023 1:30 PM EDT Office Visit Dermatology [facility] 200 [facility] [address] [place] [address] Duane Perez MD [address] [place] [address] 03/07/2024 11:00 AM EST Telemedicine Hematology Oncology [facility] [address] [place] [address] Malignancy, Multidisciplinary Clinic High [facility] [address] [place] [address] 05/16/2024 1:30 PM EST Office Visit Dermatology [place] [address] [place] [address] Duane Perez MD [address] [place] [address] Scheduled Procedures Name Priority Associated Diagnoses Date/Ti [...] and were consensually agreed upon. Care Teams Discotheque Dancer Relationship Specialty Start Date End Date Steffi Zamudio MD 200 [facility] [place] [address] PCP - General Internal Medicine 05/04/11 documented as of this encounter
--- OUTSIDE RECORDS SUMMARY | 2023-07-06 23:16 | External Medical Summary | Summary of Care ---
Author Name Unknown Organization [facility] Address [address] [place] [address] Phone [phone] Care Team Providers Care Safety Assistant Name Role Phone Steffi Zamudio MD Primary Care Provider Reason for Visit * Reason Onset Date Comments Appointment 03/28/2023 Encounter Details Date Type Department Care Team (Late st Contact Info) Description 03/28/2023 Telephone General Surgery, [facility] [address] [place] [address] Ash Kendrick MD [address] [facility] [place] [phone] Appointment Allergies Active Allergy Reactions Criticality Noted [...] surgery for weight loss 1000 mcg IM [id number] 08/02/2021 06/04/2023 A ctive documented as of this encounter (statuses as of 03/30/2023) Active Problems Problem Noted Date Diagnosed Date 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 Overview: Genetic Testing Completed 08/30/2022: Test Result: POSITIVE Gene: PMS2 Variant: Deletion (Exons 12-14) ClinVarID: None This result is consistent with Jackson syndrome Test Ordered: Multi-Cancer Panel at [facility] (84 genes) Genes Included: AIP, ALK, APC, PATTY, AXIN2, BAP1, BARD1, BLM, BMPR1A, BRCA1, BRCA2, BRIP1, CASR, CDC73, CDH1, CDK4, CDKN1B, CDKN1C, CDKN2A (p14ARF), CDKN2A (c99GLQ9l), CEBPA, CHEK2, CTNNA1, DICER1, DIS3L2, EGFR, EPCAM, FH, FLCN, GATA2, GPC3, GREM1, HOXB13, HRAS, KIT, MAX, MEN1, MET, MITF, MLH1, MSH2, MSH3, MSH6, MUTYH, NBN, NF1, NF2, NTHL1, PALB2, PDGFRA, PHOX2B, PMS2, POLD1, POLE, POT1, IJNGK2K, PTCH1, PTEN, RAD50, RAD51C, RAD51D, RB1, RECQL4, RET, RUNX1, SDHA, SDHAF2, SDHB, SDHC, SDHD, SMAD4, SMARCA4, SMARCB1, SMARCE1, STK11, SUFU, TERC, TERT, NRDO672, TP53, TSC1, TSC2, VHL, WRN, WT1 Status [...] MFM consult Pt planning repeat c/s at [place] 1. For patients with previous myomectomy involving [...] history of myomectomy. Scheduled for 06/25/15 at [place] History of prior w ith short cervix, [...] to meet with her prior to scheduling surgery. * Telephone Encounter - Mary Todd [...] 04/09/2023 2:15 PM EST Office Visit Dermatology [facility] 200 [facility] [place] [address] Duane Perez MD 200 [facility] [place] [address] 04/11/2023 12:40 PM EST Office Visit Nutrition & Weight Management, [facility] [address] [place] [address] Joan Bright PA-C [address] [place] [address] 04/26/2023 3:20 PM EST Office Visit General Internal Medicine [facility] [address] [place] [address] [address] [address] Steffi Zamudio MD 200 [facility] [place] [address] 06/07/2023 3:40 PM EDT Office Visit Nutrition & Weight Management, [facility] [address] [place] [address] Joan Bright PA-C [address] [place] [address] 07/12/2023 3:10 PM EDT Nutrition Services Nutrition & Weight Management, [facility] [address] [place] [address] Kinsey Cage RDN [address] [place] [address] 03/07/2024 11:00 AM EST Telemedicine Hematology Oncology [facility] [address] [place] [address] Malignancy, Multidisciplinary Clinic High Risk Gi [address] [place] [address] Scheduled Procedures Name Priority Associated [...] and were consensually agreed upon. Care Teams Safety Assistant Relationship Specialty Start Date End Date Steffi Zamudio MD 200 [place] [address] PCP - General Internal Medicine 05/04/11 documented as of this encounter
--- OUTSIDE RECORDS SUMMARY | 2023-07-06 23:16 | External Medical Summary | Summary of Care ---
Author Name Unknown Organization [facility] Address [address] [place] [address] Phone [phone] Care Team Providers Care Carbon Dioxide Operator Name Role Phone Steffi Jimenez MD Primary Care Provider [phone] Reason for Visit * Reason Comments Follow Up Pt here for yearly f /u for acne and for full skin exam for mccarthy syndrome. Pt has no concerns. Encounter Details Date Type Department Care Team (Late st Contact Info) Description 04/09/2023 2:15 PM EST Office Visit Dermatology [place] 200 [facility] [place] [address] Duane Perez MD 200 [facility] [place] [address] Acne vulgaris*; PMS2-related Mccarthy syndrome (HNPCC4); Melasma; Multiple benign nevi; Dermatitis Allergies Active Allergy Reactions Criticality Noted Date [...] surgery for weight loss 1000 mcg IM [id number] 08/02/2021 06/04/2023 A ctive documented as of this encounter (statuses as of 04/11/2023) Active Problems Problem Noted Date Diagnosed Date 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 Overview: Genetic Testing Completed 08/30/2022: Test Result: POSITIVE Gene: PMS2 Variant: Deletion (Exons 12-14) ClinVarID: None This result is consistent with Mccarthy syndrome Test Ordered: Multi-Cancer Panel at [facility] (84 genes) Genes Included: AIP, ALK, APC, PATTY, AXIN2, BAP1, BARD1, BLM, BMPR1A, BRCA1, BRCA2, BRIP1, CASR, CDC73, CDH1, CDK4, CDKN1B, CDKN1C, CDKN2A (p14ARF), CDKN2A (f82LMM5l), CEBPA, CHEK2, CTNNA1, DICER1, DIS3L2, EGFR, EPCAM, FH, FLCN, GATA2, GPC3, GREM1, HOXB13, HRAS, KIT, MAX, MEN1, MET, MITF, MLH1, MSH2, MSH3, MSH6, MUTYH, NBN, NF1, NF2, NTHL1, PALB2, PDGFRA, PHOX2B, PMS2, POLD1, POLE, POT1, OMYWC2T, PTCH1, PTEN, RAD50, RAD51C, RAD51D, RB1, RECQL4, RET, RUNX1, SDHA, SDHAF2, SDHB, SDHC, SDHD, SMAD4, SMARCA4, SMARCB1, SMARCE1, STK11, SUFU, TERC, TERT, UNXQ013, TP53, TSC1, TSC2, VHL, WRN, WT1 Status [...] MFM consult Pt planning repeat c/s at [facility] 1. For patients with previous myomectomy involving [...] delivery at 36-37 weeks without amniocentesis per [employer]. Every effort [...] history of myomectomy. Scheduled for 06/25/15 at [facility] History of prior w ith short cervix, [...] as of this encounter Progress Notes * Duane Perez MD - 04/09/2023 2:27 PM EST SUBJECTIVE: Chief Complaint: Chief Complaint Patient presents with Follow Up Pt here for yearly f/u for acne and for full skin exam for mccarthy syndrome. Pt has no concerns. HPI: Parris Gay is a 42 year old female seen for a full skin check and a few concerns. Recently tested positive for genes associated with Mccarthy syndrome. Family history of colon cancer. No lesions of concern today History of acne. S/p accutane. Using metro lotion and adapalene. Does admit to picking at acne, butbetter than she used to be. History of celiac's and Dermatitis herpetiformis per patient History of melasma. Uses hydroquinone in summer months Rash in left armpit. Tried switching deodorant but no improvement REVIEW OF SYSTEMS: CONSTITUTIONAL: negative SKIN: No new or changing moles or rashes other than those noted in HPI HEME/LYMPH: No new or enlarging lumps or bumps OBJECTIVE: GEN: Healthy, alert, no distress, appears oriented, pleasant, and cooperative SKIN: Detailed exam of hair, face, trunk, arms, and legs Scattered on the chest, abdomen, back upper and lower extremities are multiple evenly pigmented brown macules and papules without significant irregularity. Face with a few scattered eroded pink inflammatory papules Left axilla with faint eczematous plaque ASSESSMENT/PLAN: Multiple benign-appearing nevi - Dermoscopy was used for physical examination of pigmented lesions during todays office visit. - No features concerning for malignancy on exam today. - Discussed and emphasized importance of sun protection with SPF >30 and sun protective attire - Patient to contact physician for any new or changing lesions or other concerns. Acne vulgaris - Due to history of celiac/DH, patient good candidate for dapsone gel, will start this. Hold metro gel for now - continue differin gel nightly as tolerated Melasma - no current melasma on exam, will re-examine this summer Dermatitis - SAUNDRA negative - favor mild allergic contact dermatitis. Will trial low potency HCT steroid Mccarthy syndrome - No lesions concerning for Jessica Eddie syndrome - at this point does not require yearly skin exams but will be following her for acne regardless Duane Perez MD Ref: SELF[[id number]] NO STREET ADDRESS AVAILABLE None (office) None (fax) PCP: STEFFI JIMENEZ 200 [facility] [place] [address] [phone] documented in this encounter Nursing Notes * Jany Pérez LPN - 04/09/2023 2:15 PM EST Patient identified by full name and date of Chief Complaint Patient presents with Follow Up Pt here for yearly f/u for acne and for full skin exam for mccarthy syndrome. Pt has no concerns. documented in this encounter Plan of Treatment Upcoming Encounters Date Type Department Care Team (Late st Contact Info) Description 04/11/2023 12:40 PM EST Office Visit Nutrition & Weight Management, [facility] [address] [place] [address] Joan Bright PA-C [address] [place] [address] 04/26/2023 3:20 PM EST Office Visit General Internal Medicine [facility] [place] 200 [facility] [place] [address] Steffi Jimenez MD 200 [facility] [place] [address] 06/07/2023 3:40 PM EDT Office Visit Nutrition & Weight Management, [facility] 132 [facility] [place] [address] Joan Bright PA-C 132 [facility] [place] [address] 07/12/2023 3:10 PM EDT Nutrition Services Nutrition & Weight Management, [facility] 132 [facility] [place] [address] Kinsey Cage RDN 132 [facility] [place] [address] 10/05/2023 1:30 PM EDT Office [facility] [address] [place] [address] Duane Perez MD 200 [facility] [place] [address] 03/07/2024 11:00 AM EST Telemedicine Hematology Oncology [facility] [address] [place] [address] Malignancy, Multidisciplinary Clinic High Risk Gi [address] [place], [place] [address] 05/16/2024 1:30 PM EST Office Visit Dermatology [facility] [address] [place] [address] [place] [address] Duane Perez MD 200 [facility] [place] [address] Scheduled Procedures Name Priority Associated Diagnoses Date/Ti [...] as of this encounter Visit Diagnoses Diagnosis Acne vulgaris- Primary Other acne PMS2-related Mccarthy syndrome (HNPCC4) Melasma Other dyschromia Multiple benign nevi Benign neoplasm of skin, site unspecified Dermatitis Contact dermatitis and other eczema, due to unspecified cause documented in this encounter Advance Directives Latest [...] and were consensually agreed upon. Care Teams Carbon Dioxide Operator Relationship Specialty Start Date End Date Steffi Jimenez MD 200 [place] [address] PCP - General Internal Medicine 05/04/11 documented as of this encounter
--- OUTSIDE RECORDS SUMMARY | 2023-07-06 23:17 | External Medical Summary | Summary of Care ---
Author Name Unknown Organization [facility] Address [address] [place] [address] Phone [phone] Care Team Providers Care Equine Manager Name Role Phone Steffi Zamudio MD Primary Care Provider [phone] Reason for Visit * Reason Comments Weight Check Encounter Details Date Type Department Care Team (Late st Contact Info) Description 03/27/2023 3:00 PM EST Nurse Only Nutrition & Weight Management, [facility] [place] [facility] [address] Nurse Waylon Gi Nutrition [facility] [address] Weight Check Allergies Active Allergy Reactions Criticality Noted Date Comments Adhesive Tape Rash 03/23/2021 Band-aides -rash Gluten Rash 07/12/2012 Celiac disease documented as of this encounter (statuses as of 03/27/2023) Medications Medication Sig Dispensed Refills Start Date [...] a week. 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 Overview: Genetic Testing Completed 08/30/2022: Test Result: POSITIVE Gene: PMS2 Variant: Deletion (Exons 12-14) ClinVarID: None This result is consistent with Jackson syndrome Test Ordered: Multi-Cancer Panel at [facility] (84 genes) Genes Included: AIP, ALK, APC, PATTY, AXIN2, BAP1, BARD1, BLM, BMPR1A, BRCA1, BRCA2, BRIP1, CASR, CDC73, CDH1, CDK4, CDKN1B, CDKN1C, CDKN2A (p14ARF), CDKN2A (v68VMC1e), CEBPA, CHEK2, CTNNA1, DICER1, DIS3L2, EGFR, EPCAM, FH, FLCN, GATA2, GPC3, GREM1, HOXB13, HRAS, KIT, MAX, MEN1, MET, MITF, MLH1, MSH2, MSH3, MSH6, MUTYH, NBN, NF1, NF2, NTHL1, PALB2, PDGFRA, PHOX2B, PMS2, POLD1, POLE, POT1, GJOQO8I, PTCH1, PTEN, RAD50, RAD51C, RAD51D, RB1, RECQL4, RET, RUNX1, SDHA, SDHAF2, SDHB, SDHC, SDHD, SMAD4, SMARCA4, SMARCB1, SMARCE1, STK11, SUFU, TERC, TERT, [id number], TP53, TSC1, TSC2, VHL, WRN, WT1 Status [...] as of this encounter (statuses as of 03/27/2023) Resolved Problems Problem Noted Date Diagnosed Date [...] Pt planning repeat c/s at [facility]. For patients with previous [...] delivery at 36-37 weeks without amniocentesis per [employer]. Every effort [...] myomectomy. Scheduled for 06/25/15 at [facility] History of prior w ith [...] as of this encounter (statuses as of 03/27/2023) Immunizations Name Administration Dates Next Due Pneumococcal [...] Sign Reading Time Taken Comments Blood Pressure - - Pulse - - Temperature - - Respiratory Rate - - Oxygen Saturation - - Inhaled Oxygen Concentration - - Weight 69 kg (152 lb 3.2 oz) 03/27/2023 2:59 PM EST Height - - Body Mass Index 23.84 02/20/2023 12:33 PM EST documented in this encounter Functional [...] as of this encounter Nursing Notes * Manda Manzo LPN - 03/27/2023 2:59 PM EST Pt verified identity by last name and date. Chief Complaint Patient presents with Weight Check documented in this encounter Plan of Treatment Upcoming Encounters Date Type Department Care Team (Late st Contact Info) Description 04/09/2023 2:15 PM EST Office Visit Dermatology [place] [facility] [place] [address] [place] [address] Duane Perez MD 200 [facility] [place], [place] [address] 04/11/2023 12:40 PM EST Office Visit Nutrition & Weight Management, [facility] [address] [place] [address] Joan Bright PA-C 132 [facility] [place] [address] 04/19/2023 11:00 AM EST Office Visit Plastic Surgery, [address] [address] Emory Martin MD [facility] [address] 04/26/2023 3:20 PM EST Office Visit General Internal Medicine [facility] 200 [facility] [place] [address] Steffi Zamudio MD 200 [place] [address] 06/07/2023 3:40 PM EDT Office Visit Nutrition & Weight Management, [facility] [address] [place] [address] Joan Bright, SHANDA [facility] [place] [address] 07/12/2023 3:10 PM EDT Nutrition Services Nutrition & Weight Management, [facility] [address] [place] [address] Kinsey Cage RDN [address] [place] [address] 03/07/2024 11:00 AM EST Telemedicine Hematology Oncology [facility], [address] [phone] Malignancy, Multidisciplinary Clinic High Risk Gi [address] [place], [place] [phone] Scheduled Procedures Name Priority Associated Diagnoses Date/Ti [...] and were consensually agreed upon. Care Teams Equine Manager Relationship Specialty Start Date End Date Steffi Zamudio MD [address] [place] [address] PCP - General Internal Medicine 05/04/11 documented as of this encounter
--- OUTSIDE RECORDS SUMMARY | 2023-07-06 23:17 | External Medical Summary | Summary of Care ---
Author Name Unknown Organization [facility] Address [address] [place] [address] Phone [phone] Care Team Providers Care Personal Attendant Name Role Phone Steffi Zamudio MD Primary Care Provider [phone] Reason for Visit * Reason Onset Date Comments Med Request 03/20/2023 Encounter Details Date Type Department Care Team (Late st Contact Info) Description 03/20/2023 Telephone Access Center, [place] [address] [facility] *DO NOT REMOVE THIS DEPARTMENT* [place] [address] Services, Scheduling [address] [place] [address] Med Request Allergies Active Allergy Reactions Criticality Noted Date [...] surgery for weight loss 1000 mcg IM [id number] 08/02/2021 06/04/2023 A ctive documented as of this encounter (statuses as of 03/27/2023) Active Problems Problem Noted Date Diagnosed Date 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 Overview: Genetic Testing Completed 08/30/2022: Test Result: POSITIVE Gene: PMS2 Variant: Deletion (Exons 12-14) ClinVarID: None This result is consistent with Jackson syndrome Test Ordered: Multi-Cancer Panel at [facility] (84 genes) Genes Included: AIP, ALK, APC, PATTY, AXIN2, BAP1, BARD1, BLM, BMPR1A, BRCA1, BRCA2, BRIP1, CASR, CDC73, CDH1, CDK4, CDKN1B, CDKN1C, CDKN2A (p14ARF), CDKN2A ([id number]), CEBPA, CHEK2, CTNNA1, DICER1, DIS3L2, EGFR, EPCAM, FH, FLCN, GATA2, GPC3, GREM1, HOXB13, HRAS, KIT, MAX, MEN1, MET, MITF, MLH1, MSH2, MSH3, MSH6, MUTYH, NBN, NF1, NF2, NTHL1, PALB2, PDGFRA, PHOX2B, PMS2, POLD1, POLE, POT1, RDWGV7U, PTCH1, PTEN, RAD50, RAD51C, RAD51D, RB1, RECQL4, RET, RUNX1, SDHA, SDHAF2, SDHB, SDHC, SDHD, SMAD4, SMARCA4, SMARCB1, SMARCE1, STK11, SUFU, TERC, TERT, ARXR016, TP53, TSC1, TSC2, VHL, WRN, WT1 Status [...] MFM consult Pt planning repeat c/s at [facility] [place] [place]. For patients with previous myomectomy [...] history of myomectomy. Scheduled for 06/25/15 at [facility] [place] [place] History of prior w ith short [...] Telephone Encounter - Joan Bright PA-C - 03/27/2023 8:42 AM EST The plan was to stop the wegovy Availability of the lower doses has been an issue Please have patient stop in for a weight check-- if weight is stable can send in 1mg dose Otherwise, would recommend stopping if she can't get the 0.25mg or 0.5mg doses * Telephone Encounter - Manda Manzo LPN - 03/23/2023 11:24 AM EST Called pt. Gave below information. Pt has some of the 2.4 on hand. Will begin taking that to stay on the medication and prevent side effects. Last injection about a week ago. Requesting to wait for Jillian to return for further instruction. Pt asking for the 1mg. * Addendum Note - Ching Mahan PA-C - 03/22/2023 11:42 AM ESTAddended by: CHING MAHAN on: 03/22/2023 11:42 AM Modules accepted: Orders * Telephone Encounter - Ching Mahan PA-C - 03/22/2023 11:42 AM EST [facility] Given poor PO intake, vomiting, recommend low dose (0.25mg or 0.5mg) * Telephone Encounter - Manda Manzo LPN - 03/22/2023 10:47 AM EST Called pt. Message was sent to the scheduling pool. Was doned but not sent to nurse pool. Last injection of the 2.4mg was about a week ago. Wondering if can have the 1mg sent in. Please advise. * Telephone Encounter - Pina De La Fuente CPhT - 03/22/2023 10:44 AM EST Pt calling to check on status of Wegovy. Pt requesting high priority and call back when Rx is sent in. Thank you, Pina De La Fuente, Tech 1 Pension Examiner [facility] ([facility]PS) (formerly Telepharmacy) 03/22/2023, 10:44 AM * Telephone Encounter - Mariana Hutchins OSA - 03/20/2023 4:04 PM EST Patient calling in, her pharmacy does not have the lower doses of Wegovy, but they do have 1.0mg, patient is wondering if you will send that dosage in for her. documented in this encounter Plan of Treatment Upcoming Encounters Date Type Department Care Team (Late st Contact Info) Description 04/09/2023 2:15 PM EST Office Visit Dermatology [facility] [address] [facility] [place] [address] Duane Perez MD [address] [facility] [place] [address] 04/11/2023 12:40 PM EST Office Visit Nutrition & Weight Management, [facility] [address] [place] [address] Joan Bright PA-C [address] [place] [address] 04/19/2023 11:00 AM EST Office Visit Plastic Surgery, [place] [address] [place] [address] Emory Matrin MD [address] [place] [address] 04/26/2023 3:20 PM EST Office Visit General Internal Medicine [facility] 200 [facility] [place] [address] Steffi Zamudio MD 200 [facility] [place] [address] 06/07/2023 3:40 PM EDT Office Visit Nutrition & Weight Management, [facility] [address] [place] [address] Joan Bright PA-C [address] [place] [address] 07/12/2023 3:10 PM EDT Nutrition Services Nutrition & Weight Management, [facility] [address] [place] [address] Kinsey Cage, [place] [address] [place] [address] 03/07/2024 11:00 AM EST Telemedicine Hematology Oncology [facility] [address] [place] [address] Malignancy, Multidisciplinary Clinic High Risk [facility] [address] [place] [address] Scheduled Procedures Name Priority Associated [...] and were consensually agreed upon. Care Teams Personal Attendant Relationship Specialty Start Date End Date Steffi Zamudio MD 200 [place] [address] PCP - General Internal Medicine 05/04/11 documented as of this encounter
--- OUTSIDE RECORDS SUMMARY | 2023-07-06 23:17 | External Medical Summary | Summary of Care ---
Author Name Unknown Organization [facility] Address [address] [place] [address] Phone [phone] Care Team Providers Care Mold Burner Name Role Phone Steffi Zamudio MD Primary Care Provider [phone] Reason for Visit * Reason Onset Date Comments Appointment 03/28/2023 Encounter Details Date Type Department Care Team (Late st Contact Info) Description 03/28/2023 Telephone General Surgery, [facility] [address] [place] [address] Ash Kendrick MD [address] [facility], [place] [id number] Appointment Allergies Active Allergy Reactions Criticality Noted [...] surgery for weight loss 1000 mcg IM [id number] 08/02/2021 06/04/2023 A ctive documented as of this encounter (statuses as of 03/28/2023) Active Problems Problem Noted Date Diagnosed Date 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 Overview: Genetic Testing Completed 08/30/2022: Test Result: POSITIVE Gene: PMS2 Variant: Deletion (Exons 12-14) ClinVarID: None This result is consistent with Jackson syndrome Test Ordered: Multi-Cancer Panel at [facility] (84 genes) Genes Included: AIP, ALK, APC, PATTY, AXIN2, BAP1, BARD1, BLM, BMPR1A, BRCA1, BRCA2, BRIP1, CASR, CDC73, CDH1, CDK4, CDKN1B, CDKN1C, CDKN2A (p14ARF), CDKN2A ([id number]), CEBPA, CHEK2, CTNNA1, DICER1, DIS3L2, EGFR, EPCAM, FH, FLCN, GATA2, GPC3, GREM1, HOXB13, HRAS, KIT, MAX, MEN1, MET, MITF, MLH1, MSH2, MSH3, MSH6, MUTYH, NBN, NF1, NF2, NTHL1, PALB2, PDGFRA, PHOX2B, PMS2, POLD1, POLE, POT1, MBQFO1X, PTCH1, PTEN, RAD50, RAD51C, RAD51D, RB1, RECQL4, RET, RUNX1, SDHA, SDHAF2, SDHB, SDHC, SDHD, SMAD4, SMARCA4, SMARCB1, SMARCE1, STK11, SUFU, TERC, TERT, [id number], TP53, TSC1, TSC2, VHL, WRN, WT1 Status [...] delivery at 36-37 weeks without amniocentesis per [employer]. Every effort [...] 3:15 PM EST Office Visit General Surgery, [facility] 132 [facility] [place] [address] Ash Kendrick MD 132 [facility] [place] [address] 04/09/2023 2:15 PM EST Office Visit Dermatology [facility] 200 [facility] [place] [address] Duane Perez MD 200 [facility] [place] [address] 04/11/2023 12:40 PM EST Office Visit Nutrition & Weight Management, [facility] 132 [facility] [place] [address] Joan Bright PA-C 132 [place] [address] 04/19/2023 11:00 AM EST Office Visit Plastic Surgery, [place] [address] [place] [address] Emory Martin MD [address] [place] [address] 04/26/2023 3:20 PM EST Office Visit General Internal Medicine [facility] [place] [address] Steffi Zamudio MD 200 [facility] [place] [address] 06/07/2023 3:40 PM EDT Office Visit Nutrition & Weight Management, [facility] [address] [place] [address] Joan Bright PA-C [address] [place] [address] 07/12/2023 3:10 PM EDT Nutrition Services Nutrition & Weight Management, [facility] [address] [place] [address] Kinsey Cage RDN [address] [place] [address] 03/07/2024 11:00 AM EST Telemedicine Hematology Oncology [facility] [address] [place] [address] Malignancy, Multidisciplinary Clinic High Risk Gi [address] [place] [address] Scheduled Procedures Name Priority Associated [...] and were consensually agreed upon. Care Teams Mold Burner Relationship Specialty Start Date End Date Steffi Zamudio MD 200 [facility] [place] [address] PCP - General Internal Medicine 05/04/11 documented as of this encounter
--- OUTSIDE RECORDS SUMMARY | 2023-07-06 23:17 | External Medical Summary | Summary of Care ---
Author Name Unknown Organization [facility] Address [address] [place] [address] Phone [phone] Care Team Providers Care Apple Turner Name Role Phone Steffi Zamudio MD Primary Care Provider [phone] Reason for Visit * Reason Onset Date Comments Appointment 03/28/2023 Encounter Details Date Type Department Care Team (Late st Contact Info) Description 03/28/2023 Telephone General Surgery, [facility] [address] [place] [address] Ash Kendrick MD [address] [facility], [place] [phone] Appointment Allergies Active Allergy Reactions Criticality Noted [...] surgery for weight loss 1000 mcg IM [id number] 08/02/2021 06/04/2023 A ctive documented as of this encounter (statuses as of 03/28/2023) Active Problems Problem Noted Date Diagnosed Date 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 Overview: Genetic Testing Completed 08/30/2022: Test Result: POSITIVE Gene: PMS2 Variant: Deletion (Exons 12-14) ClinVarID: None This result is consistent with Jackson syndrome Test Ordered: Multi-Cancer Panel at [facility] (84 genes) Genes Included: AIP, ALK, APC, PATTY, AXIN2, BAP1, BARD1, BLM, BMPR1A, BRCA1, BRCA2, BRIP1, CASR, CDC73, CDH1, CDK4, CDKN1B, CDKN1C, CDKN2A (p14ARF), CDKN2A (w75RKN3u), CEBPA, CHEK2, CTNNA1, DICER1, DIS3L2, EGFR, EPCAM, FH, FLCN, GATA2, GPC3, GREM1, HOXB13, HRAS, KIT, MAX, MEN1, MET, MITF, MLH1, MSH2, MSH3, MSH6, MUTYH, NBN, NF1, NF2, NTHL1, PALB2, PDGFRA, PHOX2B, PMS2, POLD1, POLE, POT1, GFYHO2P, PTCH1, PTEN, RAD50, RAD51C, RAD51D, RB1, RECQL4, RET, RUNX1, SDHA, SDHAF2, SDHB, SDHC, SDHD, SMAD4, SMARCA4, SMARCB1, SMARCE1, STK11, SUFU, TERC, TERT, [id number], TP53, TSC1, TSC2, VHL, WRN, WT1 Status [...] MFM consult Pt planning repeat c/s at [facility] [place] 1. For patients [...] delivery at 36-37 weeks without amniocentesis per [employer]. Every effort [...] history of myomectomy. Scheduled for 06/25/15 at [facility] [place] History of prior [...] 04/09/2023 2:15 PM EST Office Visit Dermatology [facility] 200 [facility] [place] [address] Duane Perez MD [address] [place] [address] 04/11/2023 12:40 PM EST Office Visit Nutrition & Weight Management, [facility] [address] [place] [address] Joan Bright PA-C [address] [place] [address] 04/19/2023 11:00 AM EST Office Visit Plastic Surgery, [place] [address] [place] [address] Emory Martin MD [address] [place] [address] 04/26/2023 3:20 PM EST Office Visit General Internal Medicine [facility] [address] [place] [address] Steffi Zamudio MD [address] [place] [address] 06/07/2023 3:40 PM EDT Office Visit Nutrition & Weight Management, [facility] [address] [place] [address] Joan Bright PA-C [address] [place] [address] 07/12/2023 3:10 PM EDT Nutrition Services Nutrition & Weight Management, [facility] [address] [place] [address] Kinsey Cage RDN [address] [place] [address] 03/07/2024 11:00 AM EST Telemedicine Hematology Oncology [facility], [place] [address] [place] [address] Malignancy, Multidisciplinary Clinic High Risk Gi [address] [facility], [place] [phone] Scheduled Procedures Name Priority Associated Diagnoses Date/Ti [...] and were consensually agreed upon. Care Teams Apple Turner Relationship Specialty Start Date End Date Steffi Zamudio MD 200 [facility] [place] [address] PCP - General Internal Medicine 05/04/11 documented as of this encounter
--- OUTSIDE RECORDS SUMMARY | 2023-07-06 23:17 | External Medical Summary | Summary of Care ---
Author Name Unknown Organization [facility] Address [address] [place] [address] Phone [phone] Care Team Providers Care Telegraph Printer Mechanic Name Role Phone Steffi Zamudio MD Primary Care Provider [phone] Reason for Visit * Reason Onset Date Comments Med Request 03/20/2023 Encounter Details Date Type Department Care Team (Late st Contact Info) Description 03/20/2023 Telephone Access Center, [place] [address] [facility] *DO NOT REMOVE THIS DEPARTMENT* [place] [address] Services, Scheduling [address] [place] [address] Med Request Allergies Active Allergy Reactions Criticality Noted Date Comments Adhesive Tape Rash 03/23/2021 Band-aides -rash Gluten Rash 07/12/2012 Celiac disease documented as of this encounter (statuses as of 03/22/2023) Medications Medication Sig Dispensed Refills Start Date [...] surgery for weight loss 1000 mcg IM [id number] 08/02/2021 06/04/2023 A ctive documented as of this encounter (statuses as of 03/22/2023) Active Problems Problem Noted Date Diagnosed Date 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 Overview: Genetic Testing Completed 08/30/2022: Test Result: POSITIVE Gene: PMS2 Variant: Deletion (Exons 12-14) ClinVarID: None This result is consistent with Jackson syndrome Test Ordered: Multi-Cancer Panel at [facility] (84 genes) Genes Included: AIP, ALK, APC, PATTY, AXIN2, BAP1, BARD1, BLM, BMPR1A, BRCA1, BRCA2, BRIP1, CASR, CDC73, CDH1, CDK4, CDKN1B, CDKN1C, CDKN2A (p14ARF), CDKN2A (y88ZCR2c), CEBPA, CHEK2, CTNNA1, DICER1, DIS3L2, EGFR, EPCAM, FH, FLCN, GATA2, GPC3, GREM1, HOXB13, HRAS, KIT, MAX, MEN1, MET, MITF, MLH1, MSH2, MSH3, MSH6, MUTYH, NBN, NF1, NF2, NTHL1, PALB2, PDGFRA, PHOX2B, PMS2, POLD1, POLE, POT1, YRONT0K, PTCH1, PTEN, RAD50, RAD51C, RAD51D, RB1, RECQL4, RET, RUNX1, SDHA, SDHAF2, SDHB, SDHC, SDHD, SMAD4, SMARCA4, SMARCB1, SMARCE1, STK11, SUFU, TERC, TERT, BQGN286, TP53, TSC1, TSC2, VHL, WRN, WT1 Status [...] as of this encounter (statuses as of 03/22/2023) Resolved Problems Problem Noted Date Diagnosed Date Resolved Date Body mass index (BMI) of 40. 0 to 44.9 in adult 07/04/2021 10/05/2022 Overview: Per Obesity protocol BMI 33.0-33.9,adult 06/13/2019 07/27/20 23 Family history of cancer 10/06/2015 macrosomia [...] consult Pt planning [place] [facility] [place]. For patients with previous myomectomy involving [...] of myomectomy. [place] [facility] [place] of prior w ith short cervix, [...] indicate that she had a previous infection. [facility] EFW = 1487 01/10 (<3%) [...] as of this encounter (statuses as of 03/22/2023) Immunizations Name Administration Dates Next Due Pneumococcal [...] you, Pina De La Fuente, Tech 1 Manager Reading [facility] Pharmacy Services (CCPS) (formerly Telepharmacy) [...] 04/09/2023 2:15 PM EST Office Visit Dermatology [facility] [address] [place] [address] Duane Perez MD [address] [place] [address] 04/11/2023 12:40 PM EST Office Visit Nutrition & Weight Management, [facility] [address] [place] [address] Joan Bright PA-C [address] [place] [address] 04/19/2023 11:00 AM EST Office Visit Plastic Surgery, [place] [address] [place] [address] Emory Martin MD [address] [place] [address] 04/26/2023 3:20 PM EST Office Visit General Internal Medicine [facility] [address] [place] [address] Steffi Zamudio MD [address] [facility] [place] [address] 06/07/2023 3:40 PM EDT Office Visit Nutrition & Weight Management, [facility] 132 [place] [address] Joan Bright PA-C [address] [place] [address] 07/12/2023 3:10 PM EDT Nutrition Services Nutrition & Weight Management, [facility] [address] [place] [address] Kinsey Cage, EDELMIRA [address] [place] [address] 03/07/2024 11:00 AM EST Telemedicine Hematology Oncology [facility] [address] [place] [address] Malignancy, Multidisciplinary Clinic High Risk Gi [address] [place] [address] Scheduled Procedures Name Priority Associated [...] and were consensually agreed upon. Care Teams Telegraph Printer Mechanic Relationship Specialty Start Date End Date Steffi Zamudio MD [address] [place] [address] PCP - General Internal Medicine 05/04/11 documented as of this encounter
--- OUTSIDE RECORDS SUMMARY | 2023-07-06 23:17 | External Medical Summary | Summary of Care ---
Author Name Unknown Organization [facility] Address [address] [place] [address] Phone [phone] Care Team Providers Care Port Warden Name Role Phone Steffi Zamudio MD Primary Care Provider [phone] Reason for Visit * Reason Onset Date Comments Appointment 03/28/2023 Encounter Details Date Type Department Care Team (Late st Contact Info) Description 03/28/2023 Telephone General Surgery, [facility] [address] [place] [address] Ash Kendrick MD [address] [facility], [place] [phone] Appointment Allergies Active Allergy Reactions Criticality Noted [...] surgery for weight loss 1000 mcg IM [id number] 08/02/2021 06/04/2023 A ctive documented as of this encounter (statuses as of 03/28/2023) Active Problems Problem Noted Date Diagnosed Date 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 Overview: Genetic Testing Completed 08/30/2022: Test Result: POSITIVE Gene: PMS2 Variant: Deletion (Exons 12-14) ClinVarID: None This result is consistent with Jackson syndrome Test Ordered: Multi-Cancer Panel at [facility] (84 genes) Genes Included: AIP, ALK, APC, PATTY, AXIN2, BAP1, BARD1, BLM, BMPR1A, BRCA1, BRCA2, BRIP1, CASR, CDC73, CDH1, CDK4, CDKN1B, CDKN1C, CDKN2A (p14ARF), CDKN2A ([id number]), CEBPA, CHEK2, CTNNA1, DICER1, DIS3L2, EGFR, EPCAM, FH, FLCN, GATA2, GPC3, GREM1, HOXB13, HRAS, KIT, MAX, MEN1, MET, MITF, MLH1, MSH2, MSH3, MSH6, MUTYH, NBN, NF1, NF2, NTHL1, PALB2, PDGFRA, PHOX2B, PMS2, POLD1, POLE, POT1, EMDLG4H, PTCH1, PTEN, RAD50, RAD51C, RAD51D, RB1, RECQL4, RET, RUNX1, SDHA, SDHAF2, SDHB, SDHC, SDHD, SMAD4, SMARCA4, SMARCB1, SMARCE1, STK11, SUFU, TERC, TERT, [id number], TP53, TSC1, TSC2, VHL, WRN, WT1 Status [...] MFM consult [place] [facility] [place]. For patients with previous myomectomy involving [...] delivery at 36-37 weeks without amniocentesis per [employer]. Every effort [...] history of myomectomy. [place] [facility] History of prior w ith short cervix, [...] 04/09/2023 2:15 PM EST Office Visit Dermatology [facility] 200 [facility] [place] [address] Duane Perez MD [address] [place] [address] 04/11/2023 12:40 PM EST Office Visit Nutrition & Weight Management, [facility] [address] [place] [address] Joan Bright PA-C [address] [place] [address] 04/19/2023 11:00 AM EST Office Visit Plastic Surgery, [place] [address] [place] [address] Emory Martin MD [address] [place] [address] 04/26/2023 3:20 PM EST Office Visit General Internal Medicine [facility] [address] [place] [address] Steffi Zamudio MD [address] [place] [address] 06/07/2023 3:40 PM EDT Office Visit Nutrition & Weight Management, [facility] [address] [place] [address] Joan Bright PA-C [address] [place] [address] 07/12/2023 3:10 PM EDT Nutrition Services Nutrition & Weight Management, [facility] [address] [place] [address] Kinsey Cage RDN [address] [place] [address] 03/07/2024 11:00 AM EST Telemedicine Hematology Oncology [facility], [place] [address] [place] [address] Malignancy, Multidisciplinary Clinic High Risk Gi [address] [facility], [place] [phone] Scheduled Procedures Name Priority Associated Diagnoses Date/Ti [...] and were consensually agreed upon. Care Teams Port Warden Relationship Specialty Start Date End Date Steffi Zamudio MD 200 [place] [address] PCP - General Internal Medicine 05/04/11 documented as of this encounter
--- OUTSIDE RECORDS SUMMARY | 2023-07-06 23:17 | External Medical Summary | Summary of Care ---
Author Name Unknown Organization [facility] Address [address] [place] [address] Phone [phone] Care Team Providers Care Language Arts Teacher Name Role Phone Steffi Zamudio MD Primary Care Provider [phone] Reason for Visit * Reason Onset Date Comments Med Request 03/20/2023 Encounter Details Date Type Department Care Team (Late st Contact Info) Description 03/20/2023 Telephone Access Center, [facility] [address] [facility] *DO NOT REMOVE THIS DEPARTMENT* [place] [address] Services, Scheduling [address] [place] [address] Med Request Allergies Active Allergy Reactions Criticality [...] surgery for weight loss 1000 mcg IM [id number] 08/02/2021 06/04/2023 A ctive documented as of [...] CDH1, CDK4, CDKN1B, CDKN1C, CDKN2A (p14ARF), CDKN2A ([id number]), CEBPA, CHEK2, CTNNA1, DICER1, DIS3L2, EGFR, EPCAM, FH, FLCN, GATA2, GPC3, GREM1, HOXB13, HRAS, KIT, MAX, MEN1, MET, MITF, MLH1, MSH2, MSH3, MSH6, MUTYH, NBN, NF1, NF2, NTHL1, PALB2, PDGFRA, PHOX2B, PMS2, POLD1, POLE, POT1, AZYYL9Y, PTCH1, PTEN, RAD50, RAD51C, RAD51D, RB1, RECQL4, RET, RUNX1, SDHA, SDHAF2, SDHB, SDHC, SDHD, SMAD4, SMARCA4, SMARCB1, SMARCE1, STK11, SUFU, TERC, TERT, BKOC380, TP53, TSC1, TSC2, VHL, WRN, WT1 Status [...] MFM consult Pt planning repeat c/s at [facility]. For patients with previous myomectomy involving [...] delivery at 36-37 weeks without amniocentesis per [employer]. Every effort [...] history of myomectomy. Scheduled for 06/25/15 at [facility] History of prior w ith short cervix, [...] Telephone Encounter - Manda Manzo LPN - 03/27/2023 3:08 PM EST Pt came in for weight check. 152.2lb Pt agreeable to going to 1mg. * Telephone Encounter - Joan Bright PA-C [...] Try for 0.25mg dose - sent to [facility]. Given poor PO intake, vomiting, recommend low [...] you, Pina De La Fuente, Tech 1 Railroad Car Cleaner Centralized [facility] Pharmacy Services (CCPS) (formerly Telepharmacy) [...] 04/09/2023 2:15 PM EST Office Visit Dermatology [facility] [address] [place] [address] Duane Perez MD [address] [place] [address] 04/11/2023 12:40 PM EST Office Visit Nutrition & Weight Management, [facility] [address] [facility] [place] [address] Joan Bright PA-C [address] [facility] [place] [address] 04/19/2023 11:00 AM EST Office Visit Plastic Surgery, [place] [address] [place] [address] Emory Martin MD [address] [place] [address] 04/26/2023 3:20 PM EST Office Visit General Internal Medicine [facility] [address] [place] [address] Steffi Zamudio MD [address] [facility] [place] [address] 06/07/2023 3:40 PM EDT Office Visit Nutrition & Weight Management, [facility] [address] [facility] [place] [address] Joan Bright PA-C [address] [place] [address] 07/12/2023 3:10 PM EDT Nutrition Services Nutrition & Weight Management, [facility] [address] [place] [address] Kinsey Cage RDN [address] [place] [address] 03/07/2024 11:00 AM EST Telemedicine Hematology Oncology [facility], [place] [address] [place] [address] Malignancy, Multidisciplinary Clinic High Risk Gi [address] [place] [address] Scheduled Procedures Name Priority Associated [...] and were consensually agreed upon. Care Teams Language Arts Teacher Relationship Specialty Start Date End Date Steffi Zamudio MD 200 [place] [address] PCP - General Internal Medicine 05/04/11 documented as of this encounter
--- OUTSIDE RECORDS SUMMARY | 2023-07-06 23:17 | External Medical Summary | Summary of Care ---
Author Name Unknown Organization [facility] Address [address] [place] [address] Phone [phone] Care Team Providers Care Medical Assistant Dermatology Name Role Phone Steffi Zamudio MD Primary Care Provider [phone] Reason for Visit * Reason Onset Date Comments Med Request 03/20/2023 Encounter Details Date Type Department Care Team (Late st Contact Info) Description 03/20/2023 Telephone Access Center, [facility] [address] [facility] *DO NOT REMOVE THIS DEPARTMENT* [place] [address] Services, Scheduling [address] [place] [address] Med Request Allergies Active Allergy Reactions Criticality [...] surgery for weight loss 1000 mcg IM [id number] 08/02/2021 06/04/2023 A ctive documented as of this encounter (statuses as of 03/22/2023) Active Problems Problem Noted Date Diagnosed Date 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 Overview: Genetic Testing Completed 08/30/2022: Test Result: POSITIVE Gene: PMS2 Variant: Deletion (Exons 12-14) ClinVarID: None This result is consistent with Jackson syndrome Test Ordered: Multi-Cancer Panel at [facility] (84 genes) Genes Included: AIP, ALK, APC, PATTY, AXIN2, BAP1, BARD1, BLM, BMPR1A, BRCA1, BRCA2, BRIP1, CASR, CDC73, CDH1, CDK4, CDKN1B, CDKN1C, CDKN2A (p14ARF), CDKN2A (y77QAE5e), CEBPA, CHEK2, CTNNA1, DICER1, DIS3L2, EGFR, EPCAM, FH, FLCN, GATA2, GPC3, GREM1, HOXB13, HRAS, KIT, MAX, MEN1, MET, MITF, MLH1, MSH2, MSH3, MSH6, MUTYH, NBN, NF1, NF2, NTHL1, PALB2, PDGFRA, PHOX2B, PMS2, POLD1, POLE, POT1, XNZMU0D, PTCH1, PTEN, RAD50, RAD51C, RAD51D, RB1, RECQL4, RET, RUNX1, SDHA, SDHAF2, SDHB, SDHC, SDHD, SMAD4, SMARCA4, SMARCB1, SMARCE1, STK11, SUFU, TERC, TERT, HDFQ464, TP53, TSC1, TSC2, VHL, WRN, WT1 Status [...] Pt planning repeat c/s at [facility] 1. For patients [...] myomectomy. Scheduled for 06/25/15 at [facility] History of prior [...] contaminated Patient given flu vaccine. 12/10/2012 Vita Bnudy RN 12/17/2012 Tdap Vaccinedeferred Pt given VIS(vaccine [...] encounter Miscellaneous Notes * Addendum Note - Ching Mahan PA-C [...] you, Pina De La Fuente, Tech 1 Speech Language Pathologist Centralized Clinical Pharmacy Services (CCPS) (formerly Telepharmacy) [...] 04/09/2023 2:15 PM EST Office Visit Dermatology [facility] [address] [place] [address] Duane Perez MD 200 [facility] [place] [address] 04/11/2023 12:40 PM EST Office Visit Nutrition & Weight Management, [facility] [address] [address] Joan Bright PA-C [address] [place] [address] 04/19/2023 11:00 AM EST Office Visit Plastic Surgery, [address] [place] [address] Emory Martin MD [address] [place] [address] 04/26/2023 3:20 PM EST Office Visit General Internal Medicine [facility] 200 [facility] [place] [address] Steffi Zamudio MD [address] [place] [address] 06/07/2023 3:40 PM EDT Office Visit Nutrition & Weight Management, [facility] [address] [place] [address] Joan Bright PA-C [address] [place] [address] 07/12/2023 3:10 PM EDT Nutrition Services Nutrition & Weight Management, [facility] [address] [place] [address] Kinsey Cage RDN [address] [place] [address] 03/07/2024 11:00 AM EST Telemedicine Hematology Oncology [facility] [address] [place] [address] Malignancy, Multidisciplinary Clinic High Risk Gi [address] [place], [place] [phone] Scheduled Procedures Name Priority Associated Diagnoses Date/Ti [...] were consensually agreed upon. Care Teams Medical Assistant Dermatology Relationship Specialty Start Date End Date Steffi Zamudio MD 200 [facility] [employer], [place] [address] PCP - General Internal Medicine 05/04/11 documented as of this encounter
--- OUTSIDE RECORDS SUMMARY | 2023-07-06 23:17 | External Medical Summary | Summary of Care ---
Author Name Unknown Organization [facility] Address [address] [place] [address] Phone [phone] Care Team Providers Care Double Corner Cutter Name Role Phone Steffi Zamudio MD Primary Care Provider [phone] Reason for Visit * Reason Onset Date Comments Med Request 03/20/2023 Encounter Details Date Type Department Care Team (Late st Contact Info) Description 03/20/2023 Telephone Access Center, [facility] [address] [facility] *DO NOT REMOVE THIS DEPARTMENT* [place] [address] Services, Scheduling [address] [place] [address] Med Request Allergies Active Allergy Reactions Criticality Noted Date Comments Adhesive Tape Rash 03/23/2021 Band-aides -rash Gluten Rash 07/12/2012 Celiac disease documented as of this encounter (statuses as of 03/23/2023) Medications Medication Sig Dispensed Refills Start Date [...] surgery for weight loss 1000 mcg IM [id number] 08/02/2021 06/04/2023 A ctive documented as of this encounter (statuses as of 03/23/2023) Active Problems Problem Noted Date Diagnosed Date [...] CDH1, CDK4, CDKN1B, CDKN1C, CDKN2A (p14ARF), CDKN2A (v32HOV5q), CEBPA, CHEK2, CTNNA1, DICER1, DIS3L2, EGFR, EPCAM, FH, FLCN, GATA2, GPC3, GREM1, HOXB13, HRAS, KIT, MAX, MEN1, MET, MITF, MLH1, MSH2, MSH3, MSH6, MUTYH, NBN, NF1, NF2, NTHL1, PALB2, PDGFRA, PHOX2B, PMS2, POLD1, POLE, POT1, MDUZI6C, PTCH1, PTEN, RAD50, RAD51C, RAD51D, RB1, RECQL4, RET, RUNX1, SDHA, SDHAF2, SDHB, SDHC, SDHD, SMAD4, SMARCA4, SMARCB1, SMARCE1, STK11, SUFU, TERC, TERT, FHSN461, TP53, TSC1, TSC2, VHL, WRN, WT1 Status [...] as of this encounter (statuses as of 03/23/2023) Resolved Problems Problem Noted Date Diagnosed Date [...] MFM consult Pt planning repeat c/s at [facility]. For patients with previous myomectomy involving [...] delivery at 36-37 weeks without amniocentesis per [employer]. Every effort [...] history of myomectomy. Scheduled for 06/25/15 at [facility] History of prior w ith short cervix, [...] as of this encounter (statuses as of 03/23/2023) Immunizations Name Administration Dates Next Due Pneumococcal [...] you, Pina De La Fuente, Tech 1 Lithograph Printer Centralized Clinical Pharmacy Services (CCPS) (formerly Telepharmacy) [...] PM EST Office Visit Dermatology [facility] [place] [address] [place] [address] Duane Perez MD [address] [place] [address] 04/11/2023 12:40 PM EST Office Visit Nutrition & Weight Management, [facility] [address] [place] [address] Joan Bright PA-C [address] [place] [address] 04/19/2023 11:00 AM EST Office Visit Plastic Surgery, [place] [address] [place] [address] Emory Martin MD [address] [place] [address] 04/26/2023 3:20 PM EST Office Visit General Internal Medicine [facility] 200 [facility] [place] [address] Steffi Zamudio MD 200 [facility] [place] [address] 06/07/2023 3:40 PM EDT Office Visit Nutrition & Weight Management, [facility] [address] [place] [address] Joan Bright PA-C [address] [place] [address] 07/12/2023 3:10 PM EDT Nutrition Services Nutrition & Weight Management, [facility] [address] [place] [address] Kinsey Cage RDN [facility] [place] [address] 03/07/2024 11:00 AM EST Telemedicine Hematology Oncology [facility], [place] [address] [place] [phone] Malignancy, Multidisciplinary Clinic High Risk Gi [facility] [address] [place], [place] [phone] Scheduled Procedures Name Priority Associated Diagnoses Date/Ti [...] and were consensually agreed upon. Care Teams Double Corner Cutter Relationship Specialty Start Date End Date Steffi Zamudio MD [address] [place] [address], [place] [address] PCP - General Internal Medicine 05/04/11 documented as of this encounter
--- OUTSIDE RECORDS SUMMARY | 2023-07-06 23:17 | External Medical Summary | Summary of Care ---
Author Name Unknown Organization [facility] Address [address] [place] [address] Phone [phone] Care Team Providers Care Econometrician Name Role Phone Steffi Zamudio MD Primary Care Provider [phone] Reason for Visit * Reason Onset Date Comments Med Request 03/20/2023 Encounter Details Date Type Department Care Team (Late st Contact Info) Description 03/20/2023 Telephone Access Center, Central Region [address] [facility] *DO NOT REMOVE THIS DEPARTMENT* [place] [address] Services, Scheduling [address] [place] [address] Med Request Allergies Active Allergy Reactions Criticality [...] surgery for weight loss 1000 mcg IM [id number] 08/02/2021 06/04/2023 A ctive documented as of this encounter (statuses as of 03/28/2023) Active Problems Problem Noted Date Diagnosed Date 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 Overview: Genetic Testing Completed 08/30/2022: Test Result: POSITIVE Gene: PMS2 Variant: Deletion (Exons 12-14) ClinVarID: None This result is consistent with Jackson syndrome Test Ordered: Multi-Cancer Panel at [facility] (84 genes) Genes Included: AIP, ALK, APC, PATTY, AXIN2, BAP1, BARD1, BLM, BMPR1A, BRCA1, BRCA2, BRIP1, CASR, CDC73, CDH1, CDK4, CDKN1B, CDKN1C, CDKN2A (p14ARF), CDKN2A (v07TVD9i), CEBPA, CHEK2, CTNNA1, DICER1, DIS3L2, EGFR, EPCAM, FH, FLCN, GATA2, GPC3, GREM1, HOXB13, HRAS, KIT, MAX, MEN1, MET, MITF, MLH1, MSH2, MSH3, MSH6, MUTYH, NBN, NF1, NF2, NTHL1, PALB2, PDGFRA, PHOX2B, PMS2, POLD1, POLE, POT1, ZXQHS6F, PTCH1, PTEN, RAD50, RAD51C, RAD51D, RB1, RECQL4, RET, RUNX1, SDHA, SDHAF2, SDHB, SDHC, SDHD, SMAD4, SMARCA4, SMARCB1, SMARCE1, STK11, SUFU, TERC, TERT, JPYB256, TP53, TSC1, TSC2, VHL, WRN, WT1 Status [...] delivery at 36-37 weeks without amniocentesis per [employer]. Every effort [...] Miscellaneous Notes * Telephone Encounter - Amy Klein RN - 03/28/2023 1:42 PM EST Pt notified. * Addendum Note - Joan Butler PA-C - 03/27/2023 3:17 PM ESTAddended by: JOAN BUTLER on: 03/27/2023 03:17 PM Modules accepted: Orders * Telephone Encounter - Joan Butler PA-C - 03/27/2023 3:17 PM EST Noted 1mg sent please let her know * Telephone Encounter - Manda Manzo LPN - 03/27/2023 3:08 PM EST Pt came in for weight check. 152.2lb Pt agreeable to going to 1mg. * Telephone Encounter - Joan Butler PA-C - 03/27/2023 8:42 AM EST The [...] you, Pina De La Fuente, Tech 1 Senior Construction Manager Centralized Clinical Pharmacy Services (CCPS) (formerly Telepharmacy) [...] Dermatology [facility] [address] [place] [address] Duane Perez MD [address] [place] [address] 04/11/2023 12:40 PM EST Office Visit Nutrition & Weight Management, [facility] [address] [place] [address] Joan Butler PA-C [address] [place] [address] 04/19/2023 11:00 AM EST Office Visit Plastic Surgery, [place] [address] [place] [address] Emory Martin MD [address] [place] [address] 04/26/2023 3:20 PM EST Office Visit General Internal Medicine [facility] 200 [facility] [place] [address] Steffi Zamudio MD 200 [facility] [place] [address] 06/07/2023 3:40 PM EDT Office Visit Nutrition & Weight Management, [facility] [address] [place] [address] Joan Butler PA-C [address] [place] [address] 07/12/2023 3:10 PM EDT Nutrition Services Nutrition & Weight Management, [facility] [address] [place] [address] Kinsey Cage RDN [address] [place] [address] 03/07/2024 11:00 AM EST [facility]medicine [facility], [place] [address] [place] [phone] Malignancy, Multidisciplinary Clinic High Risk Gi [address] [place] [address] Scheduled Procedures Name Priority Associated [...] and were consensually agreed upon. Care Teams Econometrician Relationship Specialty Start Date End Date Steffi Zamudio MD [address] [place] [address], [place] [address] PCP - General Internal Medicine 05/04/11 documented as of this encounter
--- OUTSIDE RECORDS SUMMARY | 2023-07-06 23:17 | External Medical Summary | Summary of Care ---
Author Name Unknown Organization [facility] Address [address] [place] [address] Phone [phone] Care Team Providers Care Stencil Maker Name Role Phone Steffi Zamudio MD Primary Care Provider [phone] Reason for Visit * Reason Onset Date Comments Med Request 03/20/2023 Encounter Details Date Type Department Care Team (Late st Contact Info) Description 03/20/2023 Telephone Access Center, Central Region [address] [facility] *DO NOT REMOVE THIS DEPARTMENT* [place] [address] Services, Scheduling [address] [place] [address] Med Request Allergies Active Allergy Reactions Criticality [...] surgery for weight loss 1000 mcg IM [id number] 08/02/2021 06/04/2023 A ctive documented as of this encounter (statuses as of 03/22/2023) Active Problems Problem Noted Date Diagnosed Date 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 Overview: Genetic Testing Completed 08/30/2022: Test Result: POSITIVE Gene: PMS2 Variant: Deletion (Exons 12-14) ClinVarID: None This result is consistent with Jackson syndrome Test Ordered: Multi-Cancer Panel at [facility] (84 genes) Genes Included: AIP, ALK, APC, PATTY, AXIN2, BAP1, BARD1, BLM, BMPR1A, BRCA1, BRCA2, BRIP1, CASR, CDC73, CDH1, CDK4, CDKN1B, CDKN1C, CDKN2A (p14ARF), CDKN2A (p78SAA7w), CEBPA, CHEK2, CTNNA1, DICER1, DIS3L2, EGFR, EPCAM, FH, FLCN, GATA2, GPC3, GREM1, HOXB13, HRAS, KIT, MAX, MEN1, MET, MITF, MLH1, MSH2, MSH3, MSH6, MUTYH, NBN, NF1, NF2, NTHL1, PALB2, PDGFRA, PHOX2B, PMS2, POLD1, POLE, POT1, FHDSR2B, PTCH1, PTEN, RAD50, RAD51C, RAD51D, RB1, RECQL4, RET, RUNX1, SDHA, SDHAF2, SDHB, SDHC, SDHD, SMAD4, SMARCA4, SMARCB1, SMARCE1, STK11, SUFU, TERC, TERT, NEFZ268, TP53, TSC1, TSC2, VHL, WRN, WT1 Status [...] MFM consult Pt planning repeat c/s at [facility] 1. For patients [...] delivery at 36-37 weeks without amniocentesis per [employer]. Every effort [...] history of myomectomy. Scheduled for 06/25/15 at [facility] History of prior [...] indicate that she had a previous infection. [facility] EFW = 1487 01/10 (<3%) Reviewed [...] encounter Miscellaneous Notes * Telephone Encounter - Pina De La Fuente CPhT - 03/22/2023 10:44 AM EST Pt calling to check on status of Wegovy. Pt requesting high priority and call back when Rx is sent in. Thank you, Pina De La Fuente, Tech 1 Heat And Vent Aircraft Mechanic Centralized Clinical Pharmacy Services (CCPS) (formerly Telepharmacy) [...] PM EST Office Visit Dermatology [facility] [place] [address] [place], [place] [address] Duane Perez MD [address] [place] [address] 04/11/2023 12:40 PM EST Office Visit Nutrition & Weight Management, [facility] 132 [facility] [place] [address] Joan Bright, PARebekahC 132 [facility] [place] [address] 04/19/2023 11:00 AM EST Office Visit Plastic Surgery, [address] [address] Emory Martin MD [facility] [place] [address] 04/26/2023 3:20 PM EST Office Visit General Internal Medicine [facility] 200 [facility] [place] [address] Steffi Zamudio MD 200 [facility] [place] [address] 06/07/2023 3:40 PM EDT Office Visit Nutrition & Weight Management, [facility] 132 [facility] [place] [address] Joan Bright, PAMarcel [facility] [place] [address] 07/12/2023 3:10 PM EDT Nutrition Services Nutrition & Weight Management, [facility] [place] [address] Kinsey Cage RDN [address] [place] [address] 03/07/2024 11:00 AM EST [facility]medicine [facility], [address] [phone] Malignancy, Multidisciplinary Clinic High Risk Gi [address] [place] [address] Scheduled Procedures Name Priority Associated Diagnoses Date/Ti [...] and were consensually agreed upon. Care Teams Stencil Maker Relationship Specialty Start Date End Date Steffi Zamudio MD 200 [facility] [place] [address] PCP - General Internal Medicine 05/04/11 documented as of this encounter
--- OUTSIDE RECORDS SUMMARY | 2023-07-06 23:17 | External Medical Summary | Summary of Care ---
Author Name Unknown Organization [facility] Address [address] [place] [address] Phone [phone] Care Team Providers Care Kitchen Worker Name Role Phone Steffi Zamudio MD Primary Care Provider Reason for Visit * Reason Onset Date Comments Appointment 03/28/2023 Encounter Details Date Type Department Care Team (Late st Contact Info) Description 03/28/2023 Telephone General Surgery, [facility] [address] [employer] [address] [place] [address] Ash Kendrick MD [address] [facility] [place] [phone] Appointment Allergies Active Allergy Reactions Criticality Noted [...] surgery for weight loss 1000 mcg IM [id number] 08/02/2021 06/04/2023 A ctive documented as of [...] CDH1, CDK4, CDKN1B, CDKN1C, CDKN2A (p14ARF), CDKN2A (y95FEQ3c), CEBPA, CHEK2, CTNNA1, DICER1, DIS3L2, EGFR, EPCAM, FH, FLCN, GATA2, GPC3, GREM1, HOXB13, HRAS, KIT, MAX, MEN1, MET, MITF, MLH1, MSH2, MSH3, MSH6, MUTYH, NBN, NF1, NF2, NTHL1, PALB2, PDGFRA, PHOX2B, PMS2, POLD1, POLE, POT1, ZHJSL8L, PTCH1, PTEN, RAD50, RAD51C, RAD51D, RB1, RECQL4, RET, RUNX1, SDHA, SDHAF2, SDHB, SDHC, SDHD, SMAD4, SMARCA4, SMARCB1, SMARCE1, STK11, SUFU, TERC, TERT, HOHB753, TP53, TSC1, TSC2, VHL, WRN, WT1 Status [...] MFM consult Pt planning repeat c/s at [facility]. For patients with previous myomectomy involving [...] delivery at 36-37 weeks without amniocentesis per [employer]. Every effort [...] history of myomectomy. Scheduled for 06/25/15 at [facility] History of prior w ith short cervix, [...] [place] [address] [place] [address] Duane Perez MD [address] [place] [address] 04/11/2023 12:40 PM EST Office Visit Nutrition & Weight Management, [facility] [address] [place] [address] Joan Bright PA-C [address] [place] [address] 04/19/2023 11:00 AM EST Office Visit Plastic Surgery, [place] [address] [place] [address] Emory Martin MD [facility] [place] [address] 04/26/2023 3:20 PM EST Office Visit General Internal Medicine [facility] 200 [place] [address] Steffi Zamudio MD 200 [place] [address] 06/07/2023 3:40 PM EDT Office Visit Nutrition & Weight Management, [facility] [address] [place] [address] Joan Bright PA-C [address] [place] [address] 07/12/2023 3:10 PM EDT Nutrition Services Nutrition & Weight Management, [facility] [address] [place] [address] Kinsey Cage RDN [facility] [place] [address] 03/07/2024 11:00 AM EST Telemedicine Hematology Oncology [facility], [place] [address] [place] [address] Malignancy, Multidisciplinary Clinic High Risk Gi [facility] [place] [address] Scheduled Procedures Name Priority Associated [...] and were consensually agreed upon. Care Teams Kitchen Worker Relationship Specialty Start Date End Date Steffi Zamudio MD [address] [place] [address], [place] [address] PCP - General Internal Medicine 05/04/11 documented as of this encounter
--- OUTSIDE RECORDS SUMMARY | 2023-07-06 23:17 | External Medical Summary | Summary of Care ---
Author Name Unknown Organization [facility] Address [address] [place] [address] Phone [phone] Care Team Providers Care Flexible Machining System Machinist Name Role Phone Steffi Zamudio MD Primary Care Provider [phone] Reason for Visit * Reason Onset Date Comments Med Request 03/20/2023 Encounter Details Date Type Department Care Team (Late st Contact Info) Description 03/20/2023 Telephone Access Center, Central Region [address] [facility] *DO NOT REMOVE THIS DEPARTMENT* [place] [address] Services, Scheduling [address] [place] [address] Med Request Allergies Active Allergy Reactions Criticality [...] surgery for weight loss 1000 mcg IM [id number] 08/02/2021 06/04/2023 A ctive documented as of [...] CDH1, CDK4, CDKN1B, CDKN1C, CDKN2A (p14ARF), CDKN2A ([id number]), CEBPA, CHEK2, CTNNA1, DICER1, DIS3L2, EGFR, EPCAM, FH, FLCN, GATA2, GPC3, GREM1, HOXB13, HRAS, KIT, MAX, MEN1, MET, MITF, MLH1, MSH2, MSH3, MSH6, MUTYH, NBN, NF1, NF2, NTHL1, PALB2, PDGFRA, PHOX2B, PMS2, POLD1, POLE, POT1, PHPNH6M, PTCH1, PTEN, RAD50, RAD51C, RAD51D, RB1, RECQL4, RET, RUNX1, SDHA, SDHAF2, SDHB, SDHC, SDHD, SMAD4, SMARCA4, SMARCB1, SMARCE1, STK11, SUFU, TERC, TERT, DIFF350, TP53, TSC1, TSC2, VHL, WRN, WT1 Status [...] Pt [place] [facility]. For patients with previous myomectomy involving [...] delivery at 36-37 weeks without amniocentesis per [employer]. Every effort [...] myomectomy. Scheduled for 06/25/15 [place] [facility] History of prior w ith short cervix, [...] you, Pina De La Fuente, [employer] Services Officer [facility]ized [facility] Services (CCPS) (formerly Telepharmacy) [...] 04/09/2023 2:15 PM EST Office Visit Dermatology [facility] [address] [place] [address] Duane Perez MD [address] [place] [address] 04/11/2023 12:40 PM EST Office Visit Nutrition & Weight Management, [facility] [address] [place] [address] Joan Butler PA-C [address] [place] [address] 04/19/2023 11:00 AM EST Office Visit Plastic Surgery, [place] [address] [place] [address] Emory Martin MD [address] [place] [address] 04/26/2023 3:20 PM EST Office Visit General Internal Medicine [facility] [address] [facility] [place] [address] Steffi Zamudio MD [address] [facility] [place] [address] 06/07/2023 3:40 PM EDT Office Visit Nutrition & Weight Management, [facility] [address] [facility] [place] [address] Joan Butler PA-C [address] [facility] [place] [address] 07/12/2023 3:10 PM EDT Nutrition Services Nutrition & Weight Management, [facility] [address] [facility] [place] [address] Kinsey Cage RDN 132 [facility] [place] [address] 03/07/2024 11:00 AM EST Telemedicine Hematology Oncology [facility] [place] [address] [place] [phone] Malignancy, Multidisciplinary Clinic High Risk Gi [address], [place] [phone] Scheduled Procedures Name Priority Associated Diagnoses Date/Ti [...] and were consensually agreed upon. Care Teams Flexible Machining System Machinist Relationship Specialty Start Date End Date Steffi Zamudio MD [address] [place] [address], [place] [address] PCP - General Internal Medicine 05/04/11 documented as of this encounter
--- OUTSIDE RECORDS SUMMARY | 2023-07-06 23:18 | External Medical Summary | Summary of Care ---
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 Pump Operator Name Role Phone Steffi Zamudio MD Primary Care Provider [phone] Reason for Visit * Reason Comments NEW PATIENT * Evaluate & Treat - Unlimited Visits (Within 30 days (routine)) - Authorized Specialty Diagnoses / Procedures Referred By Galilea dominguez Referred To Contact Plastic Surgery Diagnoses Intramural leiomyoma of uterus Tamiko Baker MD [address] [place] [address] [address] Referral ID Status Reason Start Date Expiration Date Visits Requested Visits Authorized [id number] Authorized Specialty Services Required 12/22/2022 [id number] Encounter Details Date Type Department Care Team (Late st Contact Info) Description 02/16/2023 1:00 PM EST [facility] [address] [place] [address] Emory Martin MD [address], [place] [id number] Excess skin of abdomen* Allergies Active Allergy Reactions Criticality Noted Date Comments Adhesive Tape Rash 03/23/2021 Band-aides -rash Gluten Rash 07/12/2012 Celiac disease documented as of this encounter (statuses as of 02/16/2023) Medications Medication Sig Dispensed Refills Start Date End Date Status Hydroquinone 4 % External Cream Apply to brown spots on face 2x per day for 2 months 28.35 g 1 02/01/2021 Active Ventolin HFA 108 (90 Base) MCG/ACT Inhalation Aerosol SolutionIndications :COVID-19 virus infection Inhale by mouth 2 Puffs every 4 hours as needed for Wheezing. 18 g 1 05/30/2021 Active Additional Information Patient not taking.Reported on 01/25/2023 Vitamin D 50 MCG (2000 UT) Oral [...] MUSCLE SPASM 30 Tablet 2 08/29/2021 Active Calcium Carb-Cholecalcifero l 600-400 MG-UNIT Oral Tablet 1 Tablet . 0 05/30/2021 Active Adapalene 0.1 % External Gel (Differin) Apply topically to affected area at bedtime . Apply to face and chest and thighs 90 g 11 10/21/2021 Active Nystatin 631589 UNIT/GM External Powder (Nystop)Indications :Iesha albicans infection Apply topically to affected area 3 times a day. Apply to underneath breasts for 2-4 weeks 30 g 1 02/15/2022 Active Additional Information Patient not taking.Reported on 01/25/2023 metroNIDAZOLE 0.75 % External Lotion APPLY TOPICALLY TO FACE TWICE DAILY 59 mL 5 04/17/2022 Active Zinc 50 MG Oral CapsuleIndications: Intestinal postoperative [...] XL)Indications:Mixe d emotional features as adjustment reaction Take 1 Tablet by mouth in the morning. 30 Tablet 5 10/19/2022 Active Wegovy 2.4 MG/0.75ML Subcutaneous Solution Auto-injector (Semaglutide-Weight Management)Indicati ons:Obesity, Class I, BMI 30-34.9 INJECT 2.4 MG SUBCUTANEOUSLY ONCE A WEEK 9 mL 0 11/06/2022 Active Bariatric Multivitamins/Iron Oral Capsule Take by mouth. 0 Active Bariatric Fusion Oral Tablet Chewable Take by mouth. Calcium chew 0 Active Wegovy 2.4 MG/0.75ML Subcutaneous Solution Auto-injector (Semaglutide-Weight Management) Inject 2.4 mg under the skin once a week. 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 Overview: Genetic Testing Completed 08/30/2022: Test Result: POSITIVE Gene: PMS2 Variant: Deletion (Exons 12-14) ClinVarID: None This result is consistent with Jackson syndrome Test Ordered: Multi-Cancer Panel at [facility] (84 genes) Genes Included: AIP, ALK, APC, PATTY, AXIN2, BAP1, BARD1, BLM, BMPR1A, BRCA1, BRCA2, BRIP1, CASR, CDC73, CDH1, CDK4, CDKN1B, CDKN1C, CDKN2A (p14ARF), CDKN2A (g31SUL1y), CEBPA, CHEK2, CTNNA1, DICER1, DIS3L2, EGFR, EPCAM, FH, FLCN, GATA2, GPC3, GREM1, HOXB13, HRAS, KIT, MAX, MEN1, MET, MITF, MLH1, MSH2, MSH3, MSH6, MUTYH, NBN, NF1, NF2, NTHL1, PALB2, PDGFRA, PHOX2B, PMS2, POLD1, POLE, POT1, MHHHJ1O, PTCH1, PTEN, RAD50, RAD51C, RAD51D, RB1, RECQL4, RET, RUNX1, SDHA, SDHAF2, SDHB, SDHC, SDHD, SMAD4, SMARCA4, SMARCB1, SMARCE1, STK11, SUFU, TERC, TERT, QLOA582, TP53, TSC1, TSC2, VHL, WRN, WT1 Status [...] as of this encounter (statuses as of 02/16/2023) Resolved Problems Problem Noted Date Diagnosed Date Resolved Date Body mass index (BMI) of 40. 0 to 44.9 in adult 07/04/2021 10/05/2022 Overview: Per Obesity protocol BMI 33.0-33.9,adult 06/13/2019 10/20/19 23 Family history of cancer 10/06/2015 macrosomia 06/02/2015 07/01/2015 Overview: 05/25/15: @ 32w3d EF 2598gm >95%; LAURI normal Advance directive discussed [...] delivery at 36-37 weeks without amniocentesis per [employer]. Every effort [...] indicate that she had a previous infection. [facility] EFW = 1487 01/10 (<3%) Reviewed [...] as of this encounter (statuses as of 02/16/2023) Immunizations Name Administration Dates Next Due Pneumococcal Polysaccharide PPV23 (Pneumovax) SEASONAL INFLUENZA, PF, 6 M & Above, IM , (FLULAVAL or FLUZONE) 02/26/2020,01/22/2019 Seasonal Influenza, Split, IIV3, With Preserve, [...] as of this encounter Progress Notes * Emory Martin MD - 02/16/2023 1:09 PM EST Patient location: HOME. I was in a hospital or clinic location. After connecting through televideo,patient was verified with two unique identifiers. 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 Methods to assure confidentiality were taken. Patient acknowledged consent and understanding of pr ivacy and security of the Telemedicine visit. The patient agreed to participate. Parris Gay [id number] 02/16/2023 CC: Excess skin of stomach HPI: Patient is a 42 year old female who is being seen in consultation for abdominoplasty. She was recently diagnosed with Jackson syndrome and is going to be having a hysterectomy by Dr. Baker for uterine fibroid. She also went to [place] a year and a half ago and had a gastric sleeve. She has lost approximately 130 lb. Her weight has been stable for the past several months. She has a hernia of her lower abdomen. She complains that her stomach looks crooked. Dr. Kendrick is planning to repair the hernia. She was wondering if the abdominoplasty could be performed at the same time as the hysterectomy and hernia repair. Her goal with surgery is to have a flatter stomach and not have a crookedstomach. She also notes that she does not necessarily do well with anesthesia as it is taken a while for her to wake up from anesthesia and she is had hallucinations in the past. She would like to discuss what is involved with an abdominoplasty. Past Medical History: Diagnosis Date Celiac sprue [...] Jackson syndrome Test Ordered: Multi-Cancer Panel at [facility] (84 genes) Genes Included: AIP, ALK, APC, PATTY, AXIN2, BAP1, BARD1, BLM, BMPR1A, BRCA1, BRCA2, BRIP1, CASR, CDC73, CDH1, CDK4, CDKN1B, CDKN1C, CDKN2A (p14ARF), CDKN2A (p16 Syncope has passed out twice; both in sleep deprived, high stress situations Past Surgical History: Procedure Laterality Date DELIVERY ONLY W/ 02/27/2013 DELIVERY AND CARE performed by Payal House MD at [facility]; spinal DELIVERY ONLY W/ N/A 06/25/2015 DELIVERY AND CARE performed by Mike Valencia MD at [facility] DENTAL SURGERY PROCEDURE NEC 03/26/1999 no comps EGD, FLEXIBLE, W/BIOPSY 06/30/2011 biopsies EXPLORATION OF ABDOMEN N/A 07/07/2014 EXPLORATORY LAPAROTOMY performed by Yuri Wiley MD at [facility] GASTRIC BAND PLACEMENT/PORT, LAPAROSCOPIC 05/26/2021 In [place] per patinet's choice INFORMATION (source of fear about GA: her mother had a very difficult time emerging from general anesthetics, and also had myasthenia gravis) LAPAROSCOPY; CHOLECYSTECTOMY 05/25/2021 in [place] LASIK SURGERY 03/26/2011 no comps MYOMECTOMY,5>OR>250G;ABDOM AP N/A 07/07/2014 EXCISION FIBROID TUMORS UTERUS ABDOMINAL APPROACH 5 OR MORE performed by Yuri Wiley MD at [facility] PARTIAL REMOVAL OF LEG BONE(S) 1997x3 no metal, had bone repair right leg & device removal; spinals (one felt incision, converted to GA, hallucinations afterward) REMOVE TONSILS & ADENOIDS, AGE 12+ 03/26/1990 no comps; [place] Current Outpatient Medications Medication Sig Dispense Refill Hydroquinone 4 % External Cream Apply to brown spots on face 2x per day for 2 months 28.35 g 1 Ventolin HFA 108 (90 Base) MCG/ACT Inhalation Aerosol Solution Inhale by mouth 2 Puffs every 4 hours as needed for Wheezing. (Patient not taking: Reported on 01/25/2023) 18 g 1 Vitamin D 50 MCG (1999 UT) Oral Capsule Take by mouth 2,000 Units in the morning. LORazepam 0.5 MG Oral Tablet (Ativan) Take by mouth 1 Tablet 2 times a day as needed for Anxiety. 20 Tablet 0 Viactiv Calcium Immune 650-20-5.5 MG-MCG-MG Oral Tablet Chewable (Pzkjrzr-Egulzubzkfyjwty-Hynh) Take by mouth 2 Tablets daily . (Patient not taking: Reported on 01/10/2023) Womens One Daily Oral Tablet Take by mouth 2 Gum Dosing Unit daily . (Patient not taking: Reported on 01/10/2023) Cyclobenzaprine HCl 5 MG Oral Tablet (Flexeril) TAKE 1 TABLET BY MOUTH TWICE DAILY NEEDED FOR MUSCLE SPASM 30 Tablet 2 Calcium Carb-Cholecalciferol 600-400 MG-UNIT Oral Tablet 1 Tablet . (Patient not taking: Reported on 01/25/2023) Adapalene 0.1 % External Gel (Differin) Apply topically to affected area at bedtime . Apply to faceand chest and thighs 90 g 11 Nystatin 127246 UNIT/GM External Powder (Nystop) Apply topically to affected area 3 times a day. Apply to underneath breasts for 2-4 weeks (Patient not taking: Reported on 01/25/2023) 30 g 1 metroNIDAZOLE 0.75 % External Lotion APPLY TOPICALLY TO FACE TWICE DAILY 59 mL 5 Zinc 50 MG Oral Capsule Take 1 Capsule by mouth in the morning. Iron 325 (65 Fe) MG Oral Tablet Take 1 tablet by mouth once daily 90 Tablet 2 buPROPion HCl ER (XL) 150 MG Oral Tablet Extended Release 24 Hour (Wellbutrin XL) Take 1 Tablet by mouth in the morning. 30 Tablet 5 Wegovy 2.4 MG/0.75ML Subcutaneous Solution Auto-injector (Semaglutide-Weight Management) INJECT 2.4MG SUBCUTANEOUSLY ONCE A WEEK 9 mL 0 Bariatric Multivitamins/Iron Oral Capsule Take by mouth. Bariatric Fusion Oral Tablet Chewable Take by mouth. Calcium chew Wegovy 2.4 MG/0.75ML Subcutaneous Solution Auto-injector (Semaglutide-Weight Management) Inject 2.4mg under the skin once a week. 9 mL 1 Current Facility-Administered Medications Medication Dose Route Frequency Provider Last Rate Last Admin vitamin b-12 (Cyanocobalamin) inj 1,000 mcg 1,000 mcg Intramuscular Q8 Weeks Steffi Zamudio MD 1,000 mcg at 01/10/23 1403 Review of patient's allergies indicates: Allergen Reactions Adhesive Tape Rash Band-aides -rash Gluten Rash Celiac disease Social History Socioeconomic History Marital status: Spouse [...] on file Housing Stability: Not on file Family History Problem Relation Age of Onset Cancer Mother 51 adenocarcinoma of unknown primary Other (Myasthenia Gravis) Mother Diabetes Father type 2 Other (DM type 1) Sister No Past Hx Brother Heart Disorder Grandmother (Maternal) Heart Disorder Grandfather (Maternal) Other (unsure) Grandmother (Paternal) Heart Disorder Grandfather (Paternal) 68 Melanoma Uncle (Maternal) 65 ROS: No fever, chills, nausea, vomiting, lightheadedness, dizziness, shortness of breath, chest pain, constipation, diarrhea. PE: There were no vitals filed for this visit. Gen: Awake, alert, no distress Abd: Deferred A/P: I had an extensive discussion with the patient regarding treatment options. I explained that the abdominoplasty will involve removing the excess skin and tightening the abdominal muscles. I discussed the typical post-operative recovery time and the use of post-operative drains. I explained where the horizontal incision would be and emphasized that there may be a vertical scar as well as the horizontal scar. I discussed that the risks included, but were not limited to, bleeding, infection, hematoma, seroma, wound dehiscence, skin necrosis, umbilical necrosis, poor scarring, asymmetry, contour deformity, recurrence, plication rupture, and need for additional procedures. Regarding risks with combining procedures, I explained that there is an increased risk of complications when combining with additional procedures. I would like to know what the total estimated time under anesthesia would be therefore I will reach out to Dr. Kendrick and Dr. Baker for an estimateof their time. If the time estimate is reasonable, patient will then come in for a focused physicalexam. Discussed that this will also be an [id number] cost therefore we will provide an estimate if she is going to come in for a focused physical exam. All questions were answered. She was encouraged to call with any questions or concerns. I spent a total of 30-39 minutes (exact time 30 mins) on the date of service in preparation, delivery, and documentation of the care provided to Parris Gay excluding any time spent in the performance of separately billed services. Emory Martin MD documented in this encounter Plan of Treatment Upcoming Encounters Date Type Department Care Team (Late st Contact Info) Description 02/23/2023 2:00 PM EST Hospital Encounter ENDO [facility], Endoscopy Room [facility] [address] [place] [phone] Ketan Hua MD [address] [place] [address] 02/23/2023 2:00 PM EST - 02/23/2023 3:00 PM EST Surgery ENDO [facility], Endoscopy Room [facility] [address] [place] [address] Ketan Hua MD [address] [place] [address] COLONOSCOPY FLEXIBLE PROXIMAL DIAGNOSTIC 03/06/2023 11:40 AM EST Telemedicine Nutrition & Weight Management, [facility] [address] [place] [address] Joan Bright PA-C [address] [place] [address] 04/09/2023 2:15 PM EST Office Visit Dermatology [facility] [address] [facility] [address] Duane Perez MD [address] [facility] [place] [address] 04/26/2023 3:20 PM EST Office Visit General Internal Medicine [facility] [place] [address] [facility] [place] [address] Steffi Zamudio MD [address] [facility] [place] [address] 06/07/2023 3:40 PM EDT Office Visit Nutrition & Weight Management, [facility] [facility] [address] [facility] [place] [address] Joan Bright PA-C [address] [place] [address] 07/12/2023 3:10 PM EDT Nutrition Services Nutrition & Weight Management, [facility] [address] [facility] [place] [address] Kinsey Cage RDN [address] [place] [address] 03/07/2024 11:00 AM EST Telemedicine Hematology Oncology [facility] [address] [place] [address] Malignancy, Multidisciplinary Clinic High Risk Gi [address], [place] [phone] Scheduled Procedures Name Priority Associated Diagnoses Date/Ti me COLONOSCOPY FLEXIBLE PROXIMA L DIAGNOSTIC PMS2-related Jackson syndrome (HNPCC4) 02/23/2023 2:00 PM EST ESOPHAGOGASTRODUODENOSCOPY ( EGD), FLEXIBLE, TRANSORAL, DIAGNOSTIC PMS2-related Jackson syndrome (HNPCC4) 02/23/2023 2:00 PM EST Scheduled Referrals Name Type Priority Associated Diagnoses Orde r Schedule PLASTIC SURGERY REFERRAL OP Referral Within 30 days (routine) Intramural leiomyoma of uterus Ordered: 12/22/2022 PLASTIC SURGERY REFERRAL OP Referral Within 10 days (routine) Incisional hernia, without obstruction or gangrene Excessive skin and subcutaneous tissue Ordered: 12/28/2022 Health Maintenance Due Date Last Done Comments [...] as of this encounter Visit Diagnoses Diagnosis Excess skin of abdomen- Primary Unspecified hypertrophic and atrophic condition of skin PMS2-related Jackson syndrome (HNPCC4) documented in this [...] and were consensually agreed upon. Care Teams Irrigating Pump Operator Relationship Specialty Start Date End Date Steffi Zamudio MD [address] [facility] [place] [address] PCP - General Internal Medicine 05/04/11 documented as of this encounter
--- OUTSIDE RECORDS SUMMARY | 2023-07-06 23:18 | External Medical Summary | Summary of Care ---
Author Name Unknown Organization [facility] Address [address] [place] [facility] [address] Phone [phone] Care Team Providers Care Electronic Court Recorder Name Role Phone Steffi Zamudio MD Primary Care Provider Reason for Visit * Reason Comments Weight Management 1-2 month follow up, jeremy Encounter Details Date Type Department Care Team (Late st Contact Info) Description 03/01/2023 1:40 PM EST Office Visit Nutrition & Weight Management, [facility] [address] [place] [address] Joan Bright PA-C [address] [place] [address] Status post laparoscopic sleeve gastrectomy*; Intestinal postoperative nonabsorption Allergies Active Allergy Reactions Criticality Noted Date Comments Adhesive Tape Rash 03/23/2021 Band-aides -rash Gluten Rash 07/12/2012 Celiac disease documented as of this encounter (statuses as of 03/01/2023) Medications Medication Sig Dispensed Refills Start Date [...] Anxiety. 20 Tablet 0 06/04/19 22 Active Viactiv Calcium Immune 650-20-5.5 MG-MCG-MG Oral Tablet Chewable (Calcium-Cholecal ciferol-Zinc) Take by mouth 2 Tablets daily . 0 Active Womens One Daily Oral Tablet Take by mouth 2 Gum Dosing Unit daily . 0 Active Cyclobenzaprine HCl 5 MG Oral Tablet (Flexeril)Indicat ions:Neck pain TAKE 1 TABLET BY MOUTH TWICE DAILY NEEDED FOR MUSCLE SPASM 30 Tablet 2 08/30/19 22 Active Additional Information Patient not taking.Reported on 02/20/2023 Calcium Carb-Cholecalcife rol 600-400 MG-UNIT Oral Tablet 1 Tablet . 0 05/31/19 22 Active Adapalene 0.1 % External Gel (Differin) Apply topically to affected area at bedtime . Apply to face and chest and thighs 90 g 11 10/22/19 22 Active metroNIDAZOLE 0.75 % External Lotion APPLY TOPICALLY TO FACE TWICE DAILY 59 mL 5 04/17/19 23 Active Zinc 50 MG Oral CapsuleIndication s:Intestinal postoperative nonabsorption Take 1 Capsule by mouth in the morning. 0 Active Iron 325 (65 Fe) MG Oral TabletIndications :Status following gastric banding surgery for weight loss,Iron deficiency anemia secondary to inadequate dietary iron intake Take 1 tablet by mouth once daily 90 Tablet 2 08/17/19 23 Active buPROPion HCl ER (XL) 150 MG Oral Tablet Extended Release 24 Hour (Wellbutrin XL)Indications:Mi xed emotional features as adjustment reaction Take 1 Tablet by mouth in the morning. 30 Tablet 5 10/20/19 23 Active Bariatric Multivitamins/Iro n Oral Capsule Take by mouth. 0 Active Bariatric Fusion Oral Tablet Chewable Take by mouth. Calcium chew 0 Active Wegovy 0.5 MG/0.5ML Subcutaneous Solution Auto-injector (Semaglutide-Weig ht Management) Inject 0.5 mg under the skin once a week. 2 mL 1 03/01/20 23 Active Ventolin HFA 108 (90 Base) MCG/ACT Inhalation Aerosol SolutionIndicatio ns:COVID-19 virus infection Inhale by mouth 2 Puffs every 4 hours as needed for Wheezing. 18 g 1 05/31/19 22 023 Discontinued(Sc dication List Clean Up) Wegovy 2.4 MG/0.75ML Subcutaneous Solution Auto-injector (Semaglutide-Weig ht Management)Indica tions:Obesity, Class I, BMI 30-34.9 INJECT 2.4 MG SUBCUTANEOUSLY ONCE A WEEK 9 mL 0 11/07/19 23 023 Discontinued Wegovy 2.4 MG/0.75ML Subcutaneous Solution Auto-injector (Semaglutide-Weig ht Management) Inject 2.4 mg under the skin once a week. 9 mL 1 01/26/20 23 023 Discontinued Hospital, Clinic, or Other Facility Administered Medication Ordered Dose Route Frequency Start Date End Date Status vitamin b-12 (Cyanocobalamin) inj 1,000 mcgIndications:Status following gastric banding surgery for weight loss 1000 mcg IM [id number] 08/02/2021 06/04/2023 A ctive documented as of this encounter (statuses as of 03/01/2023) Active Problems Problem Noted Date Diagnosed Date [...] CDH1, CDK4, CDKN1B, CDKN1C, CDKN2A (p14ARF), CDKN2A (p18VON9h), CEBPA, CHEK2, CTNNA1, DICER1, DIS3L2, EGFR, EPCAM, FH, FLCN, GATA2, GPC3, GREM1, HOXB13, HRAS, KIT, MAX, MEN1, MET, MITF, MLH1, MSH2, MSH3, MSH6, MUTYH, NBN, NF1, NF2, NTHL1, PALB2, PDGFRA, PHOX2B, PMS2, POLD1, POLE, POT1, QQBAZ8R, PTCH1, PTEN, RAD50, RAD51C, RAD51D, RB1, RECQL4, RET, RUNX1, SDHA, SDHAF2, SDHB, SDHC, SDHD, SMAD4, SMARCA4, SMARCB1, SMARCE1, STK11, SUFU, TERC, TERT, FAIL665, TP53, TSC1, TSC2, VHL, WRN, WT1 Status [...] as of this encounter (statuses as of 03/01/2023) Resolved Problems Problem Noted Date Diagnosed Date [...] delivery at 36-37 weeks without amniocentesis per [employer]. Every effort [...] as of this encounter (statuses as of 03/01/2023) Immunizations Name Administration Dates Next Due Pneumococcal [...] Sign Reading Time Taken Comments Blood Pressure 108/55 03/01/2023 1:43 PM EST Pulse 80 03/01/2023 1:43 PM EST Temperature 36.6 C (97.9 F) 03/01/2023 1:43 PM ES T Respiratory Rate - - Oxygen Saturation 99% 03/01/2023 1:43 PM EST Inhaled Oxygen Concentration - - Weight 69.7 kg (153 lb 9.6 oz) 03/01/2023 1:43 P M EST Height - - Body Mass Index 24.06 02/20/2023 12:33 PM EST documented in this [...] Progress Notes * Joan Bright PA-C - 03/01/2023 1:53 PM EST [facility] Post Sleeve Gastrectomy Nursing Notes: Margaux Perez, KAYLEE 03/01/23 1345 Signed Patient identified by name and date of . Chief Complaint Patient presents with Weight Management 1-2 month follow up, wegovy Referring physician: Steffi Zamudio MD Parris Gay [...] patient is s/p laprascopic Sleeve Gastrectomy in [place] 05/25/21 - Weight at the time of the surgery 273 lbs - Today's weight: 153 lbs - Total weight loss of -120 lbs since surgery - Patient's weight has -5 since last visit on 01/25/23 158 Wt Readings from Last 6 Encounters: 03/01/23 69.7 kg (153 lb 9.6 oz) 02/20/23 70.3 kg (155 lb) 01/25/23 72 kg (158 lb 12.8 oz) 01/19/23 73.2 kg (161 lb 4.8 oz) 01/10/23 73.8 kg (162 lb 11.2 oz) 12/15/22 75.8 kg (167 lb) 03/01/2023 -still losing about 1 pound per [...] skin once a week. 2 mL 1 Viactiv Calcium Immune 650-20-5.5 MG-MCG-MG Oral Tablet Chewable (Rlaugsj-Ygtkicnosfrikfb-Vxfy) Take by mouth 2 Tablets daily . [...] Zamudio MD 1,000 mcg at 01/10/23 1403 BP 108/55 | Pulse 80 | Temp 36.6 C (97.9 F) | Wt 69.7 kg (153 lb 9.6 oz) | LMP 02/23/2023 (Exact Date) | SpO2 99% | BMI 24.06 kg/m | BSA 1.82 m Physical Exam Vitals and nursing note reviewed. Constitutional: Appearance: Normal appearance. HENT: Head: Normocephalic and atraumatic. Cardiovascular: Normal rate. Pulmonary: Effort: Pulmonary effort is normal. No respiratory distress. Neurological: Mental Status: Alert and oriented to person, place, and time. Psychiatric: Mood and Affect: Mood normal. Assessment/Plan: Parris was seen today for post-op. Diagnoses and all orders for this visit: Intestinal postoperative nonabsorption Reviewed vitamin recommendations-- she is not taking any vitamins She reports this is because all the vitamins make her vomit She reports vomiting is only from the vitamins and predated the wegovy She reports she isn't taking vitamins but also reports she is still vomiting MVI-- trying to find one she [...] iron and recheck labs in 3 months Plan Wegovy 0.5 MG/0.5ML Subcutaneous Solution Auto-injector (Semaglutide-Weight Management) Obesity, Class I, BMI 30-34.9 (Primary) Intestinal post operative mal absorption Steady weight loss Concern with poor PO intake-- must get in min 60g protein and min 64 ounces fluids-- saw RD 2 weeksago -she is not getting nearly enough protein, not getting appropriate PO intake -reports vomiting but unclear if it is frequent or not-- initially reports it is and then just saidone or two times just from vitamins-- would recommend further work up if she is truly vomiting frequently We cannot in good conscience continue the wegovy. She is becoming malnourished. She is hesitant to stop the wegovy as she is afraid she will gain wait. Reports if she gains weight and sees the scale increasing it may trigger her to starve herself. Recommend she stop the wegovy 2.4mg dose Will send in a lower dose to help wean off and so that appetite does not come back as intensely-- however due to supply it may be hard to find. Will continue to have close follow up [...] next visit. I spent a total of 31 minutes on the date of service in [...] achieve future goals. Joan Bright PA-C, S [facility] Nutrition and Weight Management [facility]) documented in this encounter Nursing Notes * Margaux Perez LPN - 03/01/2023 1:44 PM EST Patient identified by name and date of . Chief Complaint Patient presents with Weight Management 1-2 month follow up, wegovy documented in this encounter Plan of Treatment Upcoming Encounters Date Type Department Care Team (Late st Contact Info) Description 04/09/2023 2:15 PM EST Office Visit Dermatology [facility] [address] [facility] [place] [address] Duane Perez MD 200 [facility] [place] [address] 04/11/2023 12:40 PM EST Office Visit Nutrition & Weight Management, [facility] [address] [place] [address] Joan Bright PA-C [address] [place] [address] 04/19/2023 11:00 AM EST Office Visit Plastic Surgery, [place] [address] [place] [address] Emory Martin MD [address] [place] [address] 04/26/2023 3:20 PM EST Office Visit General Internal Medicine [facility] [address] [place] [address] Steffi Zamudio MD 200 [facility] [place] [address] 06/07/2023 3:40 PM EDT Office Visit Nutrition & Weight Management, [facility] [address] Managed by Q [facility] [place] [address] Joan Bright PA-C [address] [place] [address] 07/12/2023 3:10 PM EDT Nutrition Services Nutrition & Weight Management, [facility] [address] [place] [address] Kinsey Cage, EDELMIRA [address] [place] [address] 03/07/2024 11:00 AM EST [facility]medicine [facility] [place] [address] [place] [address] Malignancy, Multidisciplinary Clinic [facility] [address] [place] [address] Scheduled Procedures Name Priority Associated [...] and were consensually agreed upon. Care Teams Electronic Court Recorder Relationship Specialty Start Date End Date Steffi Zamudio MD 200 [place] [address] PCP - General Internal Medicine 05/04/11 documented as of this encounter"
--- OUTSIDE RECORDS SUMMARY | 2023-07-06 23:18 | External Medical Summary | Summary of Care ---
Author Name Unknown Organization [facility] Address [address] [place] [place] [address] Phone [phone] Care Team Providers Care Chinese Medicine Practitioner Name Role Phone Steffi Zamudio MD Primary Care Provider [phone] Reason for Visit * Reason Onset Date Comments Pre Op Discussion 02/20/2023 PAT call Encounter Details Date Type Department Care Team (Late st Contact Info) Description 02/20/2023 Telephone OR [facility], Operating Room [facility] [address] [employer] [place] [phone] Ketan Hua MD [address] [employer] [place] [address] Pre Op Discussion (PAT call) Allergies Active Allergy Reactions Criticality Noted Date Comments Adhesive Tape Rash 03/23/2021 Band-aides -rash Gluten Rash 07/12/2012 Celiac disease documented as of this encounter (statuses as of 02/20/2023) Medications Medication Sig Dispensed Refills Start Date [...] taking.Reported on 01/25/2023 Vitamin D 50 MCG (1999 UT) Oral [...] Information Patient not taking.Reported on 02/20/2023 Calcium Carb-Cholecalcifero l 600-400 MG-UNIT Oral Tablet [...] surgery for weight loss 1000 mcg IM [id number] 08/02/2021 06/04/2023 A ctive documented as of this encounter (statuses as of 02/20/2023) Active Problems Problem Noted Date Diagnosed Date [...] CDH1, CDK4, CDKN1B, CDKN1C, CDKN2A (p14ARF), CDKN2A (p54PUR5h), CEBPA, CHEK2, CTNNA1, DICER1, DIS3L2, EGFR, EPCAM, FH, FLCN, GATA2, GPC3, GREM1, HOXB13, HRAS, KIT, MAX, MEN1, MET, MITF, MLH1, MSH2, MSH3, MSH6, MUTYH, NBN, NF1, NF2, NTHL1, PALB2, PDGFRA, PHOX2B, PMS2, POLD1, POLE, POT1, TKOXY7E, PTCH1, PTEN, RAD50, RAD51C, RAD51D, RB1, RECQL4, RET, RUNX1, SDHA, SDHAF2, SDHB, SDHC, SDHD, SMAD4, SMARCA4, SMARCB1, SMARCE1, STK11, SUFU, TERC, TERT, [id number], TP53, TSC1, TSC2, VHL, WRN, WT1 Status [...] as of this encounter (statuses as of 02/20/2023) Resolved Problems Problem Noted Date Diagnosed Date [...] as of this encounter (statuses as of 02/20/2023) Immunizations Name Administration Dates Next Due Pneumococcal [...] EST Hospital Encounter ENDO [facility], Endoscopy Room [facility] [address] [place] [phone] Ketan Hua MD [address] [place] [address] 02/23/2023 2:00 PM EST - 02/23/2023 3:00 PM EST Surgery ENDO [facility], Endoscopy Room [facility] [address] [place] [phone] Ketan Hua MD [address] [place] [address] COLONOSCOPY FLEXIBLE PROXIMAL DIAGNOSTIC 03/06/2023 11:40 AM EST Telemedicine Nutrition & Weight Management, [facility] [address] [place] [address] Joan Bright, PAMarcel [address] [place] [address] 04/09/2023 2:15 PM EST Office Visit Dermatology [facility] [address] [place] [address] Duane Perez MD 200 [facility] [place] [address] 04/26/2023 3:20 PM EST Office Visit General Internal Medicine [facility] [address] [place] [address] Steffi Zamudio MD 200 [facility] [place], [place] [address] 06/07/2023 3:40 PM EDT Office Visit Nutrition & Weight Management, [facility] [address] [place] [address] Joan Bright, PAMarcel 132 [facility] [place] [address] 07/12/2023 3:10 PM EDT Nutrition Services Nutrition & Weight Management, [facility] [address] [place] [address] Kinsey Cage RDN [address] [place] [address] 03/07/2024 11:00 AM EST Telemedicine Hematology Oncology [facility], [place] [address] [place] [address] Malignancy, Multidisciplinary Clinic High Risk Gi [address] [facility] [place] [address] Scheduled Procedures Name Priority Associated Diagnoses Date/Ti me COLONOSCOPY FLEXIBLE PROXIMA L DIAGNOSTIC PMS2-related Jackson syndrome (HNPCC4) 02/23/2023 2:00 PM EST ESOPHAGOGASTRODUODENOSCOPY ( EGD), FLEXIBLE, TRANSORAL, DIAGNOSTIC PMS2-related Jackson syndrome (HNPCC4) 02/23/2023 2:00 PM EST Health Maintenance Due Date Last Done Comments [...] and were consensually agreed upon. Care Teams Chinese Medicine Practitioner Relationship Specialty Start Date End Date Steffi Zamudio MD 200 [facility] [place], [place] [address] PCP - General Internal Medicine 05/04/11 documented as of this encounter
--- OUTSIDE RECORDS SUMMARY | 2023-07-06 23:18 | External Medical Summary | Summary of Care ---
Author Name Unknown Organization [facility] Address [address] [place] [address] Phone [phone] Care Team Providers Care Wellness Manager Name Role Phone Steffi Zamudio MD Primary Care Provider [phone] Reason for Visit * Reason Onset Date Comments Med Request 03/20/2023 Encounter Details Date Type Department Care Team (Late st Contact Info) Description 03/20/2023 Telephone Access Center, [place] [address] [facility] *DO NOT REMOVE THIS DEPARTMENT* [place] [address] Services, Scheduling [address] [place] [address] Med Request Allergies Active Allergy Reactions Criticality Noted Date Comments Adhesive Tape Rash 03/23/2021 Band-aides -rash Gluten Rash 07/12/2012 Celiac disease documented as of this encounter (statuses as of 03/20/2023) Medications Medication Sig Dispensed Refills Start Date [...] surgery for weight loss 1000 mcg IM [id number] 08/02/2021 06/04/2023 A ctive documented as of this encounter (statuses as of 03/20/2023) Active Problems Problem Noted Date Diagnosed Date [...] CDH1, CDK4, CDKN1B, CDKN1C, CDKN2A (p14ARF), CDKN2A (w87HUG2c), CEBPA, CHEK2, CTNNA1, DICER1, DIS3L2, EGFR, EPCAM, FH, FLCN, GATA2, GPC3, GREM1, HOXB13, HRAS, KIT, MAX, MEN1, MET, MITF, MLH1, MSH2, MSH3, MSH6, MUTYH, NBN, NF1, NF2, NTHL1, PALB2, PDGFRA, PHOX2B, PMS2, POLD1, POLE, POT1, [id number], PTCH1, PTEN, RAD50, RAD51C, RAD51D, RB1, RECQL4, RET, RUNX1, SDHA, SDHAF2, SDHB, SDHC, SDHD, SMAD4, SMARCA4, SMARCB1, SMARCE1, STK11, SUFU, TERC, TERT, [id number], TP53, TSC1, TSC2, VHL, WRN, WT1 Status [...] as of this encounter (statuses as of 03/20/2023) Resolved Problems Problem Noted Date Diagnosed Date [...] repeat c/s at [facility] 1. For patients with previous [...] delivery at 36-37 weeks without amniocentesis per [employer]. Every effort [...] for 06/25/15 at [facility] History of prior w ith [...] indicate that she had a previous infection. [facility] EFW = 1487 01/10 (<3%) Reviewed [...] as of this encounter (statuses as of 03/20/2023) Immunizations Name Administration Dates Next Due Pneumococcal [...] encounter Miscellaneous Notes * Telephone Encounter - Mariana Hutchins OSA [...] Visit Dermatology [facility] [address] [place] [address] Duane Perez MD [address] [place] [address] 04/11/2023 12:40 PM EST Office Visit Nutrition & Weight Management, [facility] [address] [place] [address] Joan Bright PA-C 132 [place] [address] 04/19/2023 11:00 AM EST Office Visit Plastic Surgery, [place] [address] [place] [address] Emory Martin MD [address] [place] [address] 04/26/2023 3:20 PM EST Office Visit General Internal Medicine [facility] [address] [facility] [place] [address] Steffi Zamudio MD 200 [facility] [place] [address] 06/07/2023 3:40 PM EDT Office Visit Nutrition & Weight Management, [facility] [place] [address] Joan Bright PA-C 132 [place] [address] 07/12/2023 3:10 PM EDT Nutrition Services Nutrition & Weight Management, [facility] 132 [facility] [place] [address] Kinsey Cage RDN 132 [place] [address] 03/07/2024 11:00 AM EST Telemedicine [facility], [place] [address] [place] [id number] Malignancy, Multidisciplinary Clinic High Risk Gi [address] [place] [address] Scheduled Procedures Name Priority Associated Diagnoses Date/Ti [...] and were consensually agreed upon. Care Teams Wellness Manager Relationship Specialty Start Date End Date Steffi Zamudio MD 200 [place] [address] PCP - General Internal Medicine 05/04/11 documented as of this encounter
--- OUTSIDE RECORDS SUMMARY | 2023-07-06 23:18 | External Medical Summary | Summary of Care ---
Author Name Unknown Organization [facility] Address [address] [place] [address] Phone [phone] Care Team Providers Care Clinical Appeals Rn Name Role Phone Steffi Jimenez MD Primary Care Provider [phone] Reason for Visit * Reason Comments Other Multi Encounter Details Date Type Department Care Team (Late st Contact Info) Description 01/19/2023 9:00 AM EDT Office Visit General Internal Medicine, [facility] [address] [place] [address] Malignancy, Multidisciplinary Clinic High Risk Gi [address] [place] [address] PMS2-related Mccarthy syndrome (HNPCC4)* Allergies Active Allergy Reactions Criticality Noted Date Comments Adhesive Tape Rash 03/23/2021 Band-aides -rash Gluten Rash 07/12/2012 Celiac disease documented as of this encounter (statuses as of 01/28/2023) Medications Medication Sig Dispensed Refills Start Date [...] thighs 90 g 11 10/21/2021 Active Nystatin 533245 UNIT/GM External Powder (Nystop)Indications :Iesha albicans infection [...] A WEEK 9 mL 0 11/06/2022 Active Na Sulfate-K Sulfate-Mg Sulf 17.5-3.13-1.6 GM/177ML Oral Solution (Suprep Bowel Prep Kit) Take 1 Kit by mouth once for 1 dose. 354 mL 0 01/19/2023 3 Hospital, Clinic, or Other Facility Administered Medication Ordered Dose Route Frequency Start Date End Date Status vitamin b-12 (Cyanocobalamin) inj 1,000 mcgIndications:Status following gastric banding surgery for weight loss 1000 mcg IM [id number] 08/02/2021 06/04/2023 A ctive documented as of this encounter (statuses as of 01/28/2023) Active Problems Problem Noted Date Diagnosed Date 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 Overview: Genetic Testing Completed 08/30/2022: Test Result: POSITIVE Gene: PMS2 Variant: Deletion (Exons 12-14) ClinVarID: None This result is consistent with Mccarthy syndrome Test Ordered: Multi-Cancer Panel at [facility] (84 genes) Genes Included: AIP, ALK, APC, PATTY, AXIN2, BAP1, BARD1, BLM, BMPR1A, BRCA1, BRCA2, BRIP1, CASR, CDC73, CDH1, CDK4, CDKN1B, CDKN1C, CDKN2A (p14ARF), CDKN2A (s05AQU5p), CEBPA, CHEK2, CTNNA1, DICER1, DIS3L2, EGFR, EPCAM, FH, FLCN, GATA2, GPC3, GREM1, HOXB13, HRAS, KIT, MAX, MEN1, MET, MITF, MLH1, MSH2, MSH3, MSH6, MUTYH, NBN, NF1, NF2, NTHL1, PALB2, PDGFRA, PHOX2B, PMS2, POLD1, POLE, POT1, BUOOH1I, PTCH1, PTEN, RAD50, RAD51C, RAD51D, RB1, RECQL4, RET, RUNX1, SDHA, SDHAF2, SDHB, SDHC, SDHD, SMAD4, SMARCA4, SMARCB1, SMARCE1, STK11, SUFU, TERC, TERT, IXKE917, TP53, TSC1, TSC2, VHL, WRN, WT1 Status [...] as of this encounter (statuses as of 01/28/2023) Resolved Problems Problem Noted Date Diagnosed Date [...] delivery at 36-37 weeks without amniocentesis per [employer]. Every effort [...] as of this encounter (statuses as of 01/28/2023) Immunizations Name Administration Dates Next Due Pneumococcal [...] Sign Reading Time Taken Comments Blood Pressure 108/60 01/19/2023 9:10 AM EDT Pulse 88 01/19/2023 9:10 AM EDT Temperature 36.8 C (98.2 F) 01/19/2023 9:10 AM ED T Respiratory Rate 16 01/19/2023 9:10 AM EDT Oxygen Saturation - - Inhaled Oxygen Concentration - - Weight 73.2 kg (161 lb 4.8 oz) 01/19/2023 9:10 A M EDT Height - - Body Mass Index 25.26 12/13/2022 11:01 AM EDT documented in this encounter Functional Status Functional [...] or making decisions? (5 years old or older No 07/07/2014 documented as of this encounter Progress Notes * Pawan Mendoza DO - 01/19/2023 2:08 PM EDT Subjective: Parris Gay is a 42 year old female. 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 She also has a history of morbid obesity for which she has had a sleeve gastrectomy in [place] and celiac disease (confirmed by biopsy and serologies). She is not completely compliantwith a gluten free diet. She has not had an EGD since diagnosis of celiac in 2011. She has never had a colonoscopy but is scheduled for both EGD and Colonoscopy on 02/23/23. She denies nausea, vomiting, fever, chills, abdominal pain, melena or hematochezia Patient Active Problem List Diagnosis Code Celiac [...] banding surgery for weight loss Z98.84 PMS2-related Mccarthy syndrome (HNPCC4) Z15.09 Current Outpatient Medications Medication Sig Dispense Refill Vitamin D 50 MCG (1999 UT) Oral Capsule Take by mouth 2,000 Units in the morning. Adapalene 0.1 % External Gel (Differin) Apply topically to affected area at bedtime . Apply to faceand chest and thighs 90 g 11 Zinc 50 MG Oral Capsule Take 1 [...] SUBCUTANEOUSLY ONCE A WEEK 9 mL 0 Na Sulfate-K Sulfate-Mg Sulf 17.5-3.13-1.6 GM/177ML Oral Solution (Suprep Bowel Prep Kit) Take 1 Kit by mouth once for 1 dose. 354 mL 0 Hydroquinone 4 % External Cream Apply to brown spots on face 2x per day for 2 months 28.35 g 1 Ventolin HFA 108 (90 Base) MCG/ACT Inhalation Aerosol Solution Inhale by mouth 2 Puffs every 4 hours as needed for Wheezing. 18 g 1 LORazepam 0.5 MG Oral Tablet (Ativan) Take by mouth 1 Tablet 2 times a day as needed for Anxiety. 20 Tablet 0 Viactiv Calcium Immune 650-20-5.5 MG-MCG-MG Oral Tablet Chewable (Wbhrmgf-Bnxyccuwqdgcign-Tcop) Take by mouth 2 Tablets daily . [...] Tablet . (Patient not taking: Reported on 01/10/2023) Nystatin 905486 UNIT/GM External Powder (Nystop) Apply topically to affected area 3 times a day. Apply to underneath breasts for 2-4 weeks 30 g 1 metroNIDAZOLE 0.75 % External Lotion APPLY TOPICALLY TO FACE TWICE DAILY 59 mL 5 Current Facility-Administered Medications Medication Dose Route Frequency Provider Last Rate Last Admin vitamin b-12 (Cyanocobalamin) inj 1,000 mcg 1,000 mcg Intramuscular Q8 Weeks Steffi Jimenez MD 1,000 mcg at 01/10/23 1403 Past Medical History: Diagnosis Date Celiac sprue [...] Mccarthy syndrome Test Ordered: Multi-Cancer Panel at [facility] (84 genes) Genes Included: AIP, ALK, APC, PATTY, AXIN2, BAP1, BARD1, BLM, BMPR1A, BRCA1, BRCA2, BRIP1, CASR, CDC73, CDH1, CDK4, CDKN1B, CDKN1C, CDKN2A (p14ARF), CDKN2A (p16 Syncope has passed out twice; both in sleep deprived, high stress situations Past Surgical History: Procedure Laterality Date DELIVERY ONLY W/ 02/27/2013 DELIVERY AND CARE performed by Payal House MD at [facility]; spinal DELIVERY ONLY W/ N/A 06/25/2015 DELIVERY AND CARE performed by Mike Valencia MD at [facility] DENTAL SURGERY PROCEDURE NEC 03/26/1999 no comps EGD, FLEXIBLE, W/BIOPSY 06/30/2011 biopsies EXPLORATION OF ABDOMEN N/A 07/07/2014 EXPLORATORY LAPAROTOMY performed by Yuri Wiley MD at [facility] GASTRIC BAND PLACEMENT/PORT, LAPAROSCOPIC 05/26/2021 In [place] per patinet's choice INFORMATION (source of fear about GA: her mother had a very difficult time emerging from general anesthetics, and also had myasthenia gravis) LAPAROSCOPY; CHOLECYSTECTOMY 05/25/2021 in [place] LASIK SURGERY 03/26/2011 no comps MYOMECTOMY,5>OR>250G;ABDOM AP N/A 07/07/2014 EXCISION FIBROID TUMORS UTERUS ABDOMINAL APPROACH 5 OR MORE performed by Yuri Wiley MD at [facility] PARTIAL REMOVAL OF LEG BONE(S) no metal, had bone repair right leg & device removal; spinals (one felt incision, converted to GA, hallucinations afterward) REMOVE TONSILS & ADENOIDS, AGE 12+ 03/26/1990 no comps; ga Review of patient's allergies indicates: Allergen Reactions Adhesive Tape Rash Band-aides -rash Gluten Rash Celiac disease Family History Problem Relation Age of Onset Cancer Mother 51 adenocarcinoma of unknown primary Other (Myasthenia Gravis) Mother Diabetes Father type 2 Other (DM type 1) Sister No Past Hx Brother Heart Disorder Grandmother (Maternal) Heart Disorder Grandfather (Maternal) Other (unsure) Grandmother (Paternal) Heart Disorder Grandfather (Paternal) 68 Melanoma Uncle (Maternal) 65 Family Status Relation Status Mo at age 51 cancer, adenocarcinoma unknown primary Fa Alive, age 72y IDDM Sis Alive, age 43y Bro Alive, age 43y MGMA MGFA Alive, age 92y PGMA PGFA Nithin Alive, age 7y born 06/25/15 Son Alive, age 9y MUNC at age 65 MAUNT Social History Socioeconomic History Marital status: Spouse [...] on file Housing Stability: Not on file Review of Systems: Constitutional ROS: No change in weight, No weakness, No fatigue, and No fevers, sweats, or chills Ear ROS: No ear pain, No drainage, No tinnitus or vertigo, and No recent change in hearing Nose ROS: No history of frequent colds or sinusitis, No nasal stuffiness, No history of Hay Fever, and No significant epistaxis Mouth/Throat ROS: No bleeding gums, No thrush, or No sore throat Neck ROS: No lumps or masses, No swollen glands, No recent swelling in thyroid area, No significantpain in neck, and No h/o goiter or thyroid disease Pulmonary ROS: No cough, sputum, or hemoptysis, No wheezing, No rales, No shortness of breath, and No recent change in breathing Cardiovascular ROS: No chest pain, No shortness of breath, No dyspnea on exertion, No orthopnea, Noparoxysmal nocturnal dyspnea, No edema, No palpitations, and No syncope Gastrointestinal ROS: No abdominal pain, No change in bowel habits, No significant heartburn, No significant change in appetite, No nausea, vomiting, diarrhea, or constipation, No hematemesis, No blood in stools or black tarry stools, No abdominal bloating or early satiety, and No dysphagia Musculoskeletal/Extremities ROS: No pain, redness or swelling on the joints Hematologic/Lymphatic ROS: No coagulation disorder, No anemia, No abnormal bleeding, No chills, No bruising, No HIV risk factors, No night sweats, No swollen nodes, No weight loss, and No history of transfusion OBJECTIVE: Physical Exam: BP 108/60 (BP Site: Right Arm, BP Position: Sitting, BP Cuff Size: Regular) | Pulse 88 | Temp 36.8 C (98.2 F) (Infrared ) | Resp 16 | Wt 73.2 kg (161 lb 4.8 oz) | BMI 25.26 kg/m | BSA 1.86 m General: alert, healthy, and no distress Head: Normocephalic, No masses, lesions, tenderness or abnormalities Ears: External ears normal, Canals clear, TM's Normal Oropharynx: no exudate, no erythema, lips, buccal mucosa, and tongue normal, and mucous membranes are moist Neck: supple, no adenopathy, no bruits, thyroid normal size, non-tender, without nodularity Lymph: no palpable lymphadenopathy Heart: regular rate & rhythm, no murmur, and no gallops Lungs: chest symmetric with normal AP diameter, no chest deformities noted, no chest wall tenderness, lungs clear to auscultation Pulses: carotid=2/4 w/o bruits Abdomen: abdomen soft, non-tender, normal bowel sounds, and no masses or organomegaly Extremities: less than 2 second capillary refill, no joint deformities, effusion, or inflammation Assessment: PMS2-related Mccarthy syndrome (HNPCC4) (Primary) Other orders - Na Sulfate-K Sulfate-Mg Sulf 17.5-3.13-1.6 GM/177ML Oral Solution (Suprep Bowel Prep Kit); Take 1Kit by mouth once for 1 dose. Plan: Discussed complete compliance with gluten free diet. EGD and Colonoscopy as scheduled. Get gastric and duodenal biopsies at EGD. Pawan Mendoza DO * Rolf Campo MD - 01/19/2023 11:00 AM EDT General Internal Medicine [facility] Initial Visit Current concerns She had bariatric surgery in [place] (gastric sleeve) 05/25/2021, lost 120 pounds. Has had trouble following the recommended diet in GI nutrition. Concerned about malnutrition. Has Celiac disease. Sees a sleeve setter safety stitch for acne regularly. Past Medical History Past Medical History: Diagnosis Date Celiac sprue [...] Mccarthy syndrome Test Ordered: Multi-Cancer Panel at [facility] (84 genes) Genes Included: AIP, ALK, APC, PATTY, AXIN2, BAP1, BARD1, BLM, BMPR1A, BRCA1, BRCA2, BRIP1, CASR, CDC73, CDH1, CDK4, CDKN1B, CDKN1C, CDKN2A (p14ARF), CDKN2A (p16 Syncope has passed out twice; both in sleep deprived, high stress situations Past Surgical History Past Surgical History: Procedure Laterality Date DELIVERY ONLY W/ 02/27/2013 DELIVERY AND CARE performed by Payal House MD at [facility]; spinal DELIVERY ONLY W/ N/A 06/25/2015 DELIVERY AND CARE performed by Mike Valencia MD at [facility] DENTAL SURGERY PROCEDURE NEC 03/26/1999 no comps EGD, FLEXIBLE, W/BIOPSY 06/30/2011 biopsies EXPLORATION OF ABDOMEN N/A 07/07/2014 EXPLORATORY LAPAROTOMY performed by Yuri Wiley MD at [facility] GASTRIC BAND PLACEMENT/PORT, LAPAROSCOPIC 05/26/2021 In [place] per patinet's choice INFORMATION (source of fear about GA: her mother had a very difficult time emerging from general anesthetics, and also had myasthenia gravis) LAPAROSCOPY; CHOLECYSTECTOMY 05/25/2021 in [place] LASIK SURGERY 03/26/2011 no comps MYOMECTOMY,5>OR>250G;ABDOM AP N/A 07/07/2014 EXCISION FIBROID TUMORS UTERUS ABDOMINAL APPROACH 5 OR MORE performed by Yuri Wiley MD at [facility] PARTIAL REMOVAL OF LEG BONE(S) 1996x3 no metal, had bone repair right leg & device removal; spinals (one felt incision, converted to GA, hallucinations afterward) REMOVE TONSILS & ADENOIDS, AGE 12+ 03/26/1990 no comps; ga Current Medications Current Outpatient Medications Medication Sig Dispense Refill Vitamin D 50 MCG (2000 UT) Oral Capsule Take by mouth 2,000 Units in the morning. Adapalene 0.1 % External Gel (Differin) Apply topically to affected area at bedtime . Apply to faceand chest and thighs 90 g 11 Zinc 50 MG Oral Capsule Take 1 [...] SUBCUTANEOUSLY ONCE A WEEK 9 mL 0 Hydroquinone 4 % External Cream Apply to brown spots on face 2x per day for 2 months 28.35 g 1 Ventolin HFA 108 (90 Base) MCG/ACT Inhalation Aerosol Solution Inhale by mouth 2 Puffs every 4 hours as needed for Wheezing. 18 g 1 LORazepam 0.5 MG Oral Tablet (Ativan) Take by mouth 1 Tablet 2 times a day as needed for Anxiety. 20 Tablet 0 Viactiv Calcium Immune 650-20-5.5 MG-MCG-MG Oral Tablet Chewable (Dchpeqx-Iwlbzoevpugcnvz-Mout) Take by mouth 2 Tablets daily . [...] Tablet . (Patient not taking: Reported on 01/10/2023) Nystatin 346889 UNIT/GM External Powder (Nystop) Apply topically to affected area 3 times a day. Apply to underneath breasts for 2-4 weeks 30 g 1 metroNIDAZOLE 0.75 % External Lotion APPLY TOPICALLY TO FACE TWICE DAILY 59 mL 5 Current Facility-Administered Medications Medication Dose Route Frequency Provider Last Rate Last Admin vitamin b-12 (Cyanocobalamin) inj 1,000 mcg 1,000 mcg Intramuscular Q8 Weeks Steffi Jimenez MD 1,000 mcg at 01/10/23 1403 Family History Family History Problem Relation Age of Onset Cancer Mother 51 adenocarcinoma of unknown primary Other (Myasthenia Gravis) Mother Diabetes Father type 2 Other (DM type 1) Sister No Past Hx Brother Heart Disorder Grandmother (Maternal) Heart Disorder Grandfather (Maternal) Other (unsure) Grandmother (Paternal) Heart Disorder Grandfather (Paternal) 68 Melanoma Uncle (Maternal) 65 Social History Social History Tobacco Use Smoking status: Never Passive exposure: Never Smokeless tobacco: Never Vaping Use Vaping Use: Never used Substance Use Topics Alcohol use: No Comment: denies during Drug use: No Comment: denies ROS as above, otherwise negative in detail. Exam General: alert, healthy, no distress, well nourished, and well developed BP 108/60 (BP Site: Right Arm, BP Position: Sitting, BP Cuff Size: Regular) | Pulse 88 | Temp 36.8 C (98.2 F) (Infrared ) | Resp 16 | Wt 73.2 kg (161 lb 4.8 oz) | BMI 25.26 kg/m | BSA 1.86 m Eyes: sclera anicteric, pupils equal and round Neck: supple, no cervical or supraclavicular lymphadenopathy, thyroid smooth and symmetric Respiratory: normal respiratory excursion, clear to auscultation, no wheezing, rales, or rhonchi Cardiovascular: regular rate & rhythm and no murmurs, rubs, or gallops Abdomen: soft, non-tender, non-tender Skin: has some small red bumps consistent with acne Neuro: grossly (i.e. generally) normal speech and cognition, 5/5 upper/lower extremity strength bilaterally, CN II-XII intact bilaterally Assessment and Plan (Z15.09) PMS2-related Mccarthy syndrome (HNPCC4) (primary encounter diagnosis) GI cancer screening per Dr. Mendoza Urinalysis for screening [employer] screening and prevention per Dr. Batres Cancer prevention Discuss resistant starches. However, we discussed how there is an interaction between Celiac and bariatric surgery and a diet high in resistant starches in that she could get worse GI distress and malabsoption if she introduces too many resistant starches. . She already follows with GI nutrition. I will reach out to Joan Bright, her nutrition nutritionprovider to discuss resistant starch recommendation. Discussed risks/benefits of aspirin in Mccarthy syndrome. Given her history of bariatric surgery I didnot recommend aspirin. She already follows with dermatology for acne. Is set to reestablish are with Dr. Solorio. I will reach out to Dr. Davis re: Dr. Perez to make sure he is aware she has Mccarthy Syndrome. Rolf Campo M.D. Associate, General Internal Medicine * Dyana Batres MD - 01/19/2023 9:54 AM EDT MULTIDISCIPLINARY MCCARTHY SYNDROME CONSULT VISIT -- [employer] Parris Gay [id number] 01/19/2023 CHIEF COMPLAINT: PMS2 Mccarthy Syndrome HISTORY OF PRESENT ILLNESS Parris Gay is a 42 year old y/o premenopausal female (BMI Body mass index is 25.26 kg/m.) who is referred by Galina Noonan MS for consultation and management regarding PMS2 deletion Mccarthy Syndrome. The patient was diagnosed with Mccarthy Syndrome PMS2 deletion through [facility]. Her family history is significant for mother in her 50s after adenocarcinoma diagnosis of unknown origin. Thus far, the patient is well known to [facility]'s OBGYN Department. She currently follows with Tamiko Baker MD. Patient reports: She has a long history of uterine fibroids, which started about 10 years ago when she was with her first child. Her section in 2013 note actually does mention a large fundal fibroid which prevented exteriorization of the uterus for hysterotomy repair. States that after the delivery of her first child, she had a myomectomy for removal of a large fibroid, but one smaller fibroid was not removed. Operative report on 07/08/2014 documents this procedure in which a 13 cm fibroid was removed from the fundus of the uterus by Yuri Wiley MD. In 2016, she delivered her second child by section She then continued to follow with [employer] in 2019 for remaining fibroid. All options for fibroid management were discussed including surveillance vs medical management versus surgical management. Patient opted for Depo Lupron management for 1 year which did decrease the size of her remaining fibroid. Patient decided not to use add back therapy while on Lupron. After 1 year use of Lupron, menses did return in October of 2019 but she reports that her menses changed slightly from what it had been prior to starting Lupron. Currently, fibroid is about 8 cm in size, which is increased from 5.3 cm in 2019. She also had a 5 cm hemorrhagic ovarian cyst noted on her last CT 11/07/2022. She is currently asymptomatic. She is now considering hysterectomy and BSO because of her recent Mccarthy Syndrome diagnosis. Pt has discussed RA-TLH/BSO possible mini-lap with Dr. Baker, as well as combined ventral hernia repair with Dr. Kendrick of General Surgery and possible abdominoplasty with Plastic Surgery. This combined surgery has not yet been scheduled since she has her Plastic Surgery consult on 02/16/23. LMP 12/24/22 Menses: Regular, every 28-30 days, lasts 5-8 days, not heavy, no intermenstrual bleeding. Not sexually active. . Has two small children. Not on any control. Last pap smear 05/13/2021 NILM and HPV negative. Pt reports normal pap smear history. Patient denies any chest pain, palpitations, headaches, lightheadedness, shortness of breath, cough, nausea, vomiting, diarrhea, constipation, fever, or chills. All other ROS are negative other than those noted in the HPI. OBSTETRIC HISTORY OB History Para Term AB Living 2 2 1 1 0 2 SAB IAB Ectopic Multiple Live Births 0 0 0 0 2 # Outcome Date GA Lbr Yash/2nd Weight Sex Delivery Anes PTL Lv 2 06/25/15 36w5d 3.554 kg (7 lb 13.4 oz) F CS-LTranv Spinal N DELMY Comments: Mother's Info: 34 year old A-, Antibody positive GBS unknown Hx of myomectomy, hx of IUGR in previous , Celiac Sprue, hx of short cervix, syncope, headaches, anemia Baby's Info: A+ William negative Minimal jaundice bruise in left medial thigh Passed hearing bilaterally Hep B given 1 Term 02/27/13 39w0d 2.99 kg (6 lb 9.5 oz) M CS-LTranv Spinal N DELMY Comments: reports delivery at 39w due to concern for IUGR and breech presentation PAST MEDICAL HISTORY Past Medical History: Diagnosis Date Celiac sprue [...] Mccarthy syndrome Test Ordered: Multi-Cancer Panel at [facility] (84 genes) Genes Included: AIP, ALK, APC, PATTY, AXIN2, BAP1, BARD1, BLM, BMPR1A, BRCA1, BRCA2, BRIP1, CASR, CDC73, CDH1, CDK4, CDKN1B, CDKN1C, CDKN2A (p14ARF), CDKN2A (p16 Syncope has passed out twice; both in sleep deprived, high stress situations PAST SURGICAL HISTORY Past Surgical History: Procedure Laterality Date DELIVERY ONLY W/ 02/27/2013 DELIVERY AND CARE performed by Payal House MD at [facility]; spinal DELIVERY ONLY W/ N/A 06/25/2015 DELIVERY AND CARE performed by Mike Valencia MD at [facility] DENTAL SURGERY PROCEDURE NEC 03/26/1999 no comps EGD, FLEXIBLE, W/BIOPSY 06/30/2011 biopsies EXPLORATION OF ABDOMEN N/A 07/07/2014 EXPLORATORY LAPAROTOMY performed by Yuri Wiley MD at [facility] GASTRIC BAND PLACEMENT/PORT, LAPAROSCOPIC 05/26/2021 In [place] per patinet's choice INFORMATION (source of fear about GA: her mother had a very difficult time emerging from general anesthetics, and also had myasthenia gravis) LAPAROSCOPY; CHOLECYSTECTOMY 05/25/2021 in [place] LASIK SURGERY 03/26/2011 no comps MYOMECTOMY,5>OR>250G;ABDOM AP N/A 07/07/2014 EXCISION FIBROID TUMORS UTERUS ABDOMINAL APPROACH 5 OR MORE performed by Yuri Wiley MD at [facility] PARTIAL REMOVAL OF LEG BONE(S) 1996x3 no metal, had bone repair right leg & device removal; spinals (one felt incision, converted to GA, hallucinations afterward) REMOVE TONSILS & ADENOIDS, AGE 12+ 03/26/1990 no comps; ga FAMILY HISTORY Family History Problem Relation Age of Onset Cancer Mother 51 adenocarcinoma of unknown primary Other (Myasthenia Gravis) Mother Diabetes Father type 2 Other (DM type 1) Sister No Past Hx Brother Heart Disorder Grandmother (Maternal) Heart Disorder Grandfather (Maternal) Other (unsure) Grandmother (Paternal) Heart Disorder Grandfather (Paternal) 68 Melanoma Uncle (Maternal) 65 SOCIAL HISTORY Social History Socioeconomic History Marital status: Spouse [...] on file Housing Stability: Not on file MEDICATIONS Current Outpatient Medications Medication Sig Dispense Refill Vitamin D 50 MCG (2000 UT) Oral Capsule Take by mouth 2,000 Units in the morning. Adapalene 0.1 % External Gel (Differin) Apply topically to affected area at bedtime . Apply to faceand chest and thighs 90 g 11 Zinc 50 MG Oral Capsule Take 1 [...] SUBCUTANEOUSLY ONCE A WEEK 9 mL 0 Hydroquinone 4 % External Cream Apply to brown spots on face 2x per day for 2 months 28.35 g 1 Ventolin HFA 108 (90 Base) MCG/ACT Inhalation Aerosol Solution Inhale by mouth 2 Puffs every 4 hours as needed for Wheezing. 18 g 1 LORazepam 0.5 MG Oral Tablet (Ativan) Take by mouth 1 Tablet 2 times a day as needed for Anxiety. 20 Tablet 0 Viactiv Calcium Immune 650-20-5.5 MG-MCG-MG Oral Tablet Chewable (Zoszgma-Axttyqsbkjuphna-Rfri) Take by mouth 2 Tablets daily . [...] Tablet . (Patient not taking: Reported on 01/10/2023) Nystatin 228660 UNIT/GM External Powder (Nystop) Apply topically to affected area 3 times a day. Apply to underneath breasts for 2-4 weeks 30 g 1 metroNIDAZOLE 0.75 % External Lotion APPLY TOPICALLY TO FACE TWICE DAILY 59 mL 5 Current Facility-Administered Medications Medication Dose Route Frequency Provider Last Rate Last Admin vitamin b-12 (Cyanocobalamin) inj 1,000 mcg 1,000 mcg Intramuscular Q8 Weeks Steffi Jimenez MD 1,000 mcg at 01/10/23 1403 ALLERGIES Adhesive tape and Gluten PHYSICAL EXAM BP 108/60 (BP Site: Right Arm, BP Position: Sitting, BP Cuff Size: Regular) | Pulse 88 | Temp 36.8 C (98.2 F) (Infrared ) | Resp 16 | Wt 73.2 kg (161 lb 4.8 oz) | BMI 25.26 kg/m | BSA 1.86 m General: No acute distress. Well nourished. Alert and oriented x 3. Abdomen: Soft, non-tender, non-distended IMAGING CT (11/07/22) FINDINGS: Lungs: Lung bases are clear. Liver: Normal. No mass. Gallbladder and bile ducts: Gallbladder is surgically absent. No bile duct obstruction. Pancreas: Normal. No ductal dilation. Spleen: Normal. No splenomegaly. Adrenal glands: Normal. No mass. Kidneys and ureters: Normal. No hydronephrosis. Stomach and bowel: Postsurgical changes of gastric sleeve. No bowel obstruction or wall thickening. Appendix: No evidence of appendicitis. Intraperitoneal space: Unremarkable. No free air. No significant fluid collection. Vasculature: Unremarkable. No abdominal aortic aneurysm. Lymph nodes: Unremarkable. No enlarged lymph nodes. Urinary bladder: Unremarkable as visualized. Reproductive: The uterus is enlarged with a heterogeneous intramural fibroid on the left similar to the prior MRI pelvis from 12/16/2021 measuring 7.5 x 7.7 cm. Redemonstration of hemorrhagic right ovarian cyst measuring 5.5 x 3.9 cm not significantly changed in the interval. Left adnexa is unremarkable. Bones/joints: Unremarkable. No acute fracture. Soft tissues: Stable appearance of the lower right ventral abdominal wall hernia containing fat. Additional small or midline ventral abdominal wall hernia containing fat. Diastasis of the rectus abdominus muscle measuring up to 4.4 cm IMPRESSION: 1. Stable appearance of the lower fat containing ventral abdominal hernias with diastasis of the rectus abdominus muscles. 2. Stable hemorrhagic right ovarian cyst measuring up to 5.5 cm. 3. Large left uterine intramural fibroid. 4. Status post cholecystectomy. TVUS (08/10/22) FINDINGS: LMP: 07/15/2022 UTERUS: 16.8 cmx7.4 cmx13.2 [...] ml Unremarkable MISCELLANEOUS: No significant free fluid. IMPRESSION: 1. Interval increased in size of uterine fibroid. 2. Two adjacent right ovarian hemorrhagic cysts are also increased in size since prior MRPatel Santoyoon follow-up examination. 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 PLAN 1. PMS2-related Mccarthy syndrome (HNPCC4) - Had a lengthy discussion with the pt regarding current NCCN guidelines for PMS2 Mccarthy Syndrome Gynecologic management. - Agree with hysterectomy recommendations as well as BSO. Counseled pt on risks vs benefits of BSO.Overall, the benefits outweigh the increased risk of ovarian cancer. We do not have an optimal screening process for detecting ovarian cancers. Ca 125 and TVUS can be useful for screening, however itis not optimal for detecting early ovarian cancers, but usually can be helpful in detecting advanced stage ovarian cancers when patients are already having symptoms. - Counseled pt on the role of HRT including benefits and risks after BSO. We discussed the [facility]I findings in regards to risks of breast cancer (not significant) as well as VTE. Discussed protective factors for osteoporosis, early onset of dementia, and cardiovascular disease and overall reduction of m orbidity and mortality compared to no HRT after BSO. - Discussed the option of discontinuing HRT around the average age of menopause (51 yo) versus extending to 60 yo. Risks vs benefits discussion. - Advised that she should have an endometrial biopsy prior to her hysterectomy (this does appear tohave been discussed in Dr. Baker's note from 11/2022). Background Information - Mccarthy syndrome accounts for most cases of hereditary uterine and colorectal cancer and is the second most common cause of inherited ovarian cancer (after hereditary breast and ovarian cancer syndrome). - The most common genes associated with Mccarthy syndrome are MLH1, MSH2, MSH6, and PMS2. Deletions inthe EpCAM gene also may lead to inactivation of MSH2 and result in Mccarthy syndrome. - Endometrial cancer that is associated with Mccarthy syndrome occurs at a significantly younger age (mean age, 47-49 years) than in the general population. - Women with Mccarthy syndrome-associated ovarian cancer also have a younger mean age of diagnosis (mean age, 42-49 years). - The incidence of Mccarthy syndrome in women who present with endometrial cancer is approximately 2.3%. - The estimated endometrial cancer risk by age 40 years in women with Mccarthy syndrome is approximately 2-4%, and the estimated ovarian cancer risk is approximately 1-2% - By age 50 years, this risk increases to 8-17% and 3-7%, respectively. - In women younger than 50 years, at least 5-9% of women with endometrial cancer will have a detectable deleterious mismatch repair gene mutation associated with Mccarthy syndrome. - The risk of endometrial cancer through age 70 years for women with PMS2 Mccarthy syndrome is estimated to be 13-26% and may equal or exceed their risk of colorectal cancer. - The risk of ovarian cancer through age 70 years for women with PMS2 Mccarthy syndrome is estimated to be 1.3-3%, compared with approximately 1% in the general population. Screening and Surveillance Recommendations for Women With Mccarthy Syndrome - Colonoscopy every 1-2 years, beginning at age 20-25 years, or 2-5 years before the earliest cancer diagnosis in the family, whichever is earlier. - Endometrial biopsy every 1-2 years, beginning at age 30-35 years. - Keeping a menstrual calendar and evaluating abnormal uterine bleeding. - There is no consensus on ovarian cancer surveillance in women with Mccarthy syndrome. Further, results of ovarian cancer surveillance in women with BRCA1 and BRCA2 mutations may not be applicable in Mccarthy syndrome because the biology of ovarian cancer in Mccarthy syndrome significantly differs from that of ovarian cancer seen in hereditary breast and ovarian cancer syndrome. - It is unclear whether screening with transvaginal ultrasound or CA 125 is effective in women withLynch syndrome. Prevention - Oral contraceptives are known to be chemopreventive agents for endometrial carcinoma and can reduce endometrial cancer risk in the general population by up to 50%. - Progestin therapy also is effective in the treatment of endometrial hyperplasia and early endometrial cancer. - Prophylactic hysterectomy and bilateral salpingooophorectomy is a risk- reducing option for women with Mccarthy syndrome who have completed childbearing. - Risk-reducing hysterectomy and salpingo-oophorectomy should be discussed with the patient by their early to mid-40s. - Incidence of endometrial cancer is significantly reduced by hysterectomy (33% to 0%) after a meanfollow-up time of 7 years. - Postoophorectomy primary peritoneal carcinoma has been observed in women with Mccarthy syndrome, butthe magnitude of this risk is unclear. - Hormone therapy may be considered for symptomatic surgical menopause. Total time spent face to face in this visit was 45 minutes of which more than 50% was spent discussing and counseling the patient/caregiver(s) regarding PMS2 Mccarthy Syndrome and Gynecologic managementrecommendations. Total time spent on this date of service including non face to face was 60 minutesin preparation, delivery, and documentation of care provided, excluding time spent in performance of separately billable services. Details outlined above in impression and plan. Dyana Batres MD 01/19/2023 9:55 AM * Maryanne Roa MD - 01/19/2023 9:22 AM EDT Images from the original note were not included. UROLOGIC ONCOLOGY ASSESSMENT [facility] Mccarthy Syndrome Initial visit: Parris Gay is 42 year old female who is seen today for Mccarthy syndrome screening. 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 She has no manifestations of Mccarthy syndrome to date. She denies any gross or microscopic hematuria. She denies any history of urinary tract infection, nephrolithiasis, anticoagulation, flank pain. She has baseline lower back pain. She denies any frequency, urgency, nocturia, dysuria. She has no family history of kidney or urothelial cancer. She never smoked cigarettes and denies exposures to chemicals or dyes. She is here alone. PAST MEDICAL HISTORY: Past Medical History: Diagnosis [...] Mccarthy syndrome Test Ordered: Multi-Cancer Panel at [facility] (84 genes) Genes Included: AIP, ALK, APC, PATTY, AXIN2, BAP1, BARD1, BLM, BMPR1A, BRCA1, BRCA2, BRIP1, CASR, CDC73, CDH1, CDK4, CDKN1B, CDKN1C, CDKN2A (p14ARF), CDKN2A (p16 Syncope has passed out twice; both in sleep deprived, high stress situations PAST SURGICAL HISTORY: Past Surgical History: Procedure Laterality Date DELIVERY ONLY W/ 02/27/2013 DELIVERY AND CARE performed by Payal House MD at [facility]; spinal DELIVERY ONLY W/ N/A 06/25/2015 DELIVERY AND CARE performed by Mike Valencia MD at [facility] DENTAL SURGERY PROCEDURE NEC 03/26/1999 no comps EGD, FLEXIBLE, W/BIOPSY 06/30/2011 biopsies EXPLORATION OF ABDOMEN N/A 07/07/2014 EXPLORATORY LAPAROTOMY performed by Yuri Wiley MD at [facility] GASTRIC BAND PLACEMENT/PORT, LAPAROSCOPIC 05/26/2021 In [place] per patinet's choice INFORMATION (source of fear about GA: her mother had a very difficult time emerging from general anesthetics, and also had myasthenia gravis) LAPAROSCOPY; CHOLECYSTECTOMY 05/25/2021 in [place] LASIK SURGERY 03/26/2011 no comps MYOMECTOMY,5>OR>250G;ABDOM AP N/A 07/07/2014 EXCISION FIBROID TUMORS UTERUS ABDOMINAL APPROACH 5 OR MORE performed by Yuri Wiley MD at [facility] PARTIAL REMOVAL OF LEG BONE(S) no metal, had bone repair right leg & device removal; spinals (one felt incision, converted to GA, hallucinations afterward) REMOVE TONSILS & ADENOIDS, AGE 12+ 03/26/1990 no comps; ga CURRENT MEDS: Current Outpatient Medications Medication Sig Dispense Refill Vitamin D 50 MCG (1999 [place]) Oral Capsule Take by mouth 2,000 Units in the morning. Adapalene 0.1 % External Gel (Differin) Apply topically to affected area at bedtime . Apply to faceand chest and thighs 90 g 11 Zinc 50 MG Oral Capsule Take 1 [...] SUBCUTANEOUSLY ONCE A WEEK 9 mL 0 Hydroquinone 4 % External Cream Apply to brown spots on face 2x per day for 2 months 28.35 g 1 Ventolin HFA 108 (90 Base) MCG/ACT Inhalation Aerosol Solution Inhale by mouth 2 Puffs every 4 hours as needed for Wheezing. 18 g 1 LORazepam 0.5 MG Oral Tablet (Ativan) Take by mouth 1 Tablet 2 times a day as needed for Anxiety. 20 Tablet 0 Viactiv Calcium Immune 650-20-5.5 MG-MCG-MG Oral Tablet Chewable (Ugfpdia-Ifgodkblxknqpsa-Vmtv) Take by mouth 2 Tablets daily . [...] Tablet . (Patient not taking: Reported on 01/10/2023) Nystatin 724750 UNIT/GM External Powder (Nystop) Apply topically to affected area 3 times a day. Apply to underneath breasts for 2-4 weeks 30 g 1 metroNIDAZOLE 0.75 % External Lotion APPLY TOPICALLY TO FACE TWICE DAILY 59 mL 5 Current Facility-Administered Medications Medication Dose Route Frequency Provider Last Rate Last Admin vitamin b-12 (Cyanocobalamin) inj 1,000 mcg 1,000 mcg Intramuscular Q8 Weeks Steffi Jimenez MD 1,000 mcg at 01/10/23 1403 ALLERGIES: Review of patient's allergies indicates: Allergen Reactions Adhesive Tape Rash Band-aides -rash Gluten Rash Celiac disease FAMILY HISTORY: Family History Problem Relation Age [...] on file Housing Stability: Not on file ROS EXAM: Constitutional: no fever, no chills, no sweats, no weight loss, no weakness and no fatigue Resp: no cough, no sputum, no wheezing, no shortness of breath and no dyspnea on exertion Cardiac: no chest pain, no heart palpitation GI: no pain, no heartburn, no diarrhea, no constipation, no blood/melena, no nausea, no vomiting Musculoskeletal: no significant joint or muscle pain and no swelling : as above Neuro: no memory loss, no weakness, no numbness or tingling and no vertigo Heme: No abnormal bleeding, no bruising, no anticoagulation Endo: no unplanned weight change, no excessive thirst and no excessive urination Skin: no rash, no itching, no new/changing skin lesions ALL other review of systems is negative except for the history of present illness. Physical exam BP 108/60 (BP Site: Right Arm, BP Position: Sitting, BP Cuff Size: Regular) | Pulse 88 | Temp 36.8 C (98.2 F) (Infrared ) | Resp 16 | Wt 73.2 kg (161 lb 4.8 oz) | BMI 25.26 kg/m | BSA 1.86 m Constitutional: Well developed, well nourished, no distress, no weight loss Head: normocephalic, atraumatic Pulmonary: respiratory effort within normal limits, no wheezes, Abd: soft, non tender, non distended, no guarding, no masses Musculoskeletal: no deformities, no tenderness, no edema Neurological: alert, oriented x 3,,no abnormal coordination Skin: warm, dry, no erythema, no new skin lesions or rashes Psychiatric: no mood changes, normal affect, appropriate behavior Labs were personally and independently reviewed and with the patient Latest Reference Range & Units 11/04/22 12:09 Sodium 135 - 146 mmol/L 139 Potassium 3.5 - 5.1 mmol/L 3.9 Chloride 98 - 107 mmol/L 104 CO2 22 - 32 mmol/L 25 BUN 6 - 20 mg/dL 13 Creatinine 0.5 - 1.0 mg/dL 0.7 Estimated Glomerular Filtration Rate >=60 mL/min >90 Anion Gap 7 - 15 mmol/L 10 Glucose 70 - 120 mg/dL 99 Calcium 8.4 - 10.2 mg/dL 9.3 Protein 6.0 - 8.3 g/dL 7.1 Albumin 3.8 - 5.0 g/dL 4.3 AST 10 - 35 U/L 14 ALT 10 - 35 U/L 8 (L) Alkaline Phosphatase 35 - 130 U/L 65 Bilirubin, Total <=1.2 mg/dL 0.4 (L): Data is abnormally low Results for orders placed or performed in visit on 01/19/23 URINALYSIS, REFLEX TO MICROSCOPIC Result Value Ref Range Color, Urine Yellow Colorless, Light Yellow, Yellow, Dark Yellow Clarity, Urine Slightly Cloudy (A) Clear Glucose, Urine Negative Negative mg/dL Bilirubin, Urine Negative Negative Ketone, Urine Trace (A) Negative mg/dL Specific [place], Urine 1.036 (H) 1.003 - 1.030 Blood, Urine Negative Negative pH, Urine 6.5 5.0 - 7.5 Units Protein, Urine 30 (A) Negative mg/dL Urobilinogen, Urine Normal Normal mg/dL Nitrite, Urine Negative Negative Esterase, Urine Negative Negative RBC, Urine 0-2 0 - 2 /HPF WBC, Urine 0-2 0 - 2 /HPF Bacteria, Urine 151-200 (A) 0 - 25 /HPF Calcium Oxalate Crystal, Urine 20-29 (A) None /HPF Hyaline, Cast, Urine 1-4 (A) None /LPF Imaging: I personally reviewed the imaging studies and these were reviewed with the patient. Narrative & Impression PROCEDURE INFORMATION: Exam: CT Abdomen And Pelvis With Contrast Exam date and time: 11/07/2022 4:51 PM Age: 41 years old Clinical indication: Localized swelling, mass and lump, trunk; Additional info: Lump like fullness in RT mid tolower abdomen - years been stable, wt loss. H/o mccarthy syn , S/P gastric surgery. R/O hernia or mass TECHNIQUE: Imaging protocol: Computed tomography of the abdomen and pelvis with contrast. Radiation optimization: All CT scans at this facility use at least one of these dose optimization techniques: automated exposure control; mA and/or kV adjustment per patient size (includes targeted exams where dose is matched to clinical indication); or iterative reconstruction. Contrast material: OPTIRAY 320; Contrast volume: 125 ml; Contrast route: INTRAVENOUS (IV); REPORTING DATA: Count of CT and Cardiac NM exams in prior 12 months: This patient has received 0 known CTs and 0 known cardiac nuclear medicine studies in the 12 months prior to the current study. COMPARISON: MRI PELVIS W WO CONTRAST 12/16/2021 3:11 PM FINDINGS: Lungs: Lung bases are clear. Liver: Normal. No mass. Gallbladder and bile ducts: Gallbladder is surgically absent. No bile duct obstruction. Pancreas: Normal. No ductal dilation. Spleen: Normal. No splenomegaly. Adrenal glands: Normal. No mass. Kidneys and ureters: Normal. No hydronephrosis. Stomach and bowel: Postsurgical changes of gastric sleeve. No bowel obstruction or wall thickening. Appendix: No evidence of appendicitis. Intraperitoneal space: Unremarkable. No free air. No significant fluid collection. Vasculature: Unremarkable. No abdominal aortic aneurysm. Lymph nodes: Unremarkable. No enlarged lymph nodes. Urinary bladder: Unremarkable as visualized. Reproductive: The uterus is enlarged with a heterogeneous intramural fibroid on the left similar to the prior MRI pelvis from 12/16/2021 measuring 7.5 x 7.7 cm. Redemonstration of hemorrhagic right ovarian cyst measuring 5.5 x 3.9 cm not significantly changed in the interval. Left adnexa is unremarkable. Bones/joints: Unremarkable. No acute fracture. Soft tissues: Stable appearance of the lower right ventral abdominal wall hernia containing fat. Additional small or midline ventral abdominal wall hernia containing fat. Diastasis of the rectus abdominus muscle measuring up to 4.4 cm IMPRESSION IMPRESSION: 1. Stable appearance of the lower fat containing ventral abdominal hernias with diastasis of the rectus abdominus muscles. 2. Stable hemorrhagic right ovarian cyst measuring up to 5.5 cm. 3. Large left uterine intramural fibroid. 4. Status post cholecystectomy. 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 Urinalysis today was negative for blood. Plan: 1. Mccarthy syndrome: Discussed the genitourinary organs (urothelial lining of kidney, ureter, bladder, urethra) that are at risk with this syndrome - urothelial screening: - given the lack of family history of urothelial cancer, indicated that screening is controversial as some suggest that screening should be limited to those with a family history of urothelial carcinoma. - this involves screening for blood in the urine annually, and if positive, proceed to CT urogram and cystoscopy if indicated - reviewed the data for PMS2 carriers with a lifetime risk of 2.4% similar to the general population - reviewed the average age of diagnosis at 71 years. - continue with annual urinalysis and return to clinic for evaluation if she were to develop microscopic or gross hematuria. 2. May return to clinic as indicated. Maryanne Roa MD 01/19/2023 9:22 AM PCP: [place] [address] [phone] * Abeba Cortes MS - 01/19/2023 9:00 AM EDT Images from the original note were not included. MULTIDISCIPLINARY INHERITED RISK GI CLINIC Genetic Counseling Notes Abeba Cortes MS, [facility] [place] [address] Name: Parris Gay Date: 01/19/2023 - 9:00 AM EDT Assessment: Parris Gay was found to carry a pathogenic in the PMS2 gene called PMS2, del exons 12-14. Genetic testing was completed in 2022 through Cancer [facility]etics Risk Assessment Clinic. Parris presents to this multidisciplinary clinic to develop and review her care plan for Mccarthy syndrome related cancer surveillance. Cancer Type General Population Risk PMS2 Risk PMS2 Mean Age of Onset Colon 4.1% Up to 20% 61-66 years Endometrium (females only) 3.1% Up to 26% 49-50 years Ovary (females only) 1.1% Up to 3% 51-59 years Bladder 2.3% Up to 2.4% 71 years Stomach <1% Limited data Limited data Biliary Tract <1% <1% Not reported Urinary Tract <1% Up to 3.7% Not reported Small bowel <1% <1% 59 years^ ^single case Pancreas 1.7% Up to 1.6% Not reported Prostate (men only) 12.6% Up to 11.6% Not reported Breast* (females only) *NCCN V1.2020 12.8% Up to 12.8% Not reported Brain <1% <1% 40 years Sebaceous neoplasms* *NCCN V1.2018 <1% Not reported Not reported Adapted from NCCN Genetic/Familial High-Risk Assessment: Colorectal Version 1.2022 - July 2022 Family History of cancer was reviewed and updated today; pedigree is documented in [facility]. Pertinent findings include: New diagnoses: no Children: doing well Discussed that Parris is a single mom, and has concerns about being around for her children - particularly in light of her mother's own unknown primary cancer diagnoses. Discussed that Parris's story will be different from her mother and the advances in medicine since that time. Discussed how knowing about this variant and doing screenings can lower the risks reviewed above. Parris is interested in being followed through Mccarthy clinic and return clinic. Would like to come in person. Social History: - lives with kids - looks to self, friends for support as well as brother; feels like she is a lot of other people's support. Very strong Evangelical, has god for support and strong friends. - distress about genetic finding described as: feels like it has been challenging making this adjustment, especially since she has fibroids that have been monitored (was not ready for hysterectomy); was gong through divorce and decided not to do hysterectomy. Very concerned about being around for kids as a single mom. 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 Discussed that after she speaks with her brother she can reach out at any time with questions by calling the cancer genetics clinic line (does not use myG). -best way to contact Parris is phone calls and leave number. Parris does not utilize myG and prefers to have printed out information. -Parris would like to be followed through return in person clinic. Plan: Colorectal Cancer (CRC): Colonoscopy recommended every 1-3 yr for PMS2 beginning at age 30-35 yrs, or 2-5 yrs prior to the earliest colon cancer in the family. Health Maintenance plan will be updated based on outcome of colonoscopy. Aspirin therapy: NCCN recommends all individuals with Mccarthy syndrome with risk for future CRC consider daily aspirin as chemoprevention. Discuss individual risks and benefits. Upper GI Cancers: Consider Upper endoscopy with visualization of the duodenum beginning at age 30-40; time procedure with colonoscopy and repeat every 2-4 years May initiate earlier or complete more frequently if high risk findings on baseline exam, or if family history of gastric cancer. Random biopsy of proximal and distal stomach should at minimum be performed on the initial procedure to assess for H. pylori, autoimmune gastritis and intestinal metaplasia. Push enteroscopy can be considered in place of EGD to enhance small bowel visualization. Individuals not undergoing upper endoscopic surveillance should have one-time noninvasive testing for H. pylori at the time of LS diagnosis. There are limited available data on upper GI cancer risk in PMS2, and new evidence is likely to inform changes to recommendations in the future. Consider adding 30g daily resistant starch to diet based on CAPP2 trial data released September 2021 PMID: [id number]. Endometrial & Ovarian Cancers: Consider hysterectomy with/without bilateral salpingo-oophorectomy after family is complete. Or, beginning at age 30, annual endometrial biopsy +/- transvaginal ultrasound +/- CA-125 may be considered at provider discretion, along with counseling about limitationsof surveillance in pre-menopausal women. Recent data suggests that risk for ovarian cancer may not be greatly increased above the general population in PMS2 carriers and bilateral salpingo- oophorectomy may not be indicated. Urothelial Cancers: Consider annual urinalysis beginning at age 30-35. Collected today. Skin Cancer: Consider full-body skin exam with a sleeve setter safety stitch every 1-2 years. Age to start surveillance can be individualized. Brain Cancer: Annual physical/neurologic exam. Completed today- WNL. Pancreatic Cancer: Consider endoscopic ultrasound and MRI surveillance at age 50 if family history of pancreatic cancer in at least 1 first- or second-degree relatives from the same side of the family. PMS2 has not been shown to be associated with an increased risk for pancreatic cancer. Pancreaticcancer screening should be based on family history with PMS2. a. No known family history of pancreatic cancer. Breast Cancer: There is conflicting data regarding risk for breast cancer in Mccarthy syndrome. Annualmammography beginning at age 40. Breast cancer risk management should be based on personal and family history. Resistant starch discussion will be had pending outcome of GI Nutrition consult with Dr. Campo. Parris underwent bariatric sleeve surgery in [place], and Dr. Campo would like to speak with GI nutrition regarding resistant starches in this case. Consult Summary & Disease Risks We discussed the natural history of Mccarthy syndrome including (1) ages at diagnosis among patients with Mccarthy syndrome tend to be younger than in patients with sporadic cancers, (2) patients with Mccarthy syndrome are not expected to develop many polyps over the lifetime (ie: this is not a polyposis condition), but we screen individuals on a yearly basis because polyp transformation tends to occur layla faster rate (1-2 years) than with sporadic colon cancers (~10 years); (3) timing of preventative measures and early detection: it can be helpful to lump annual screenings into same month to get it all over with at once; (4) guildelines for Mccarthy syndrome management are altered slightly each year by the NCCN as new research becomes available. Ms. Gay understands that her PCP (Steffi iJmenez MD) will continue to manage overall care, however, our program remains avilable for any Mccarthy-related questions. FOLLOW UP: RTC annually for follow up in [facility]. Time spent in counseling and coordination of care: 15 minutes Abeba Cortes MS, [facility] Licensed, Certified Genetic Counselor Mccarthy Syndrome Management [employer] 01/18/2023 2:27 PM documented in this encounter Plan of Treatment Upcoming Encounters Date Type Department Care Team (Late st Contact Info) Description 02/16/2023 1:00 PM EST Telemedicine Plastic Surgery, [place] [address] [place] [address] Emory Martin MD [address] [place] [address] 02/23/2023 2:00 PM EST Hospital Encounter ENDO O[facility], Endoscopy Room [facility] [address] [place] [phone] Ketan Hua MD [address] [place] [address] 02/23/2023 2:00 PM EST - 02/23/2023 3:00 PM EST Surgery ENDO [facility], Endoscopy Room [facility] [address] [place] [phone] Ketan Hua MD [address] [place] [address] COLONOSCOPY FLEXIBLE PROXIMAL DIAGNOSTIC 03/06/2023 11:40 AM EST Telemedicine Nutrition & Weight Management, [facility] [address] [place] [address] Joan Bright PA-C [address] [place] [address] 04/09/2023 2:15 PM EST Office Visit Dermatology [facility] [address] [facility] [place] [address] Daune Perez MD [address] [facility] [place] [address] 04/26/2023 3:20 PM EST Office Visit General Internal Medicine [facility] [address] [facility] [place] [address] Steffi Jimenez MD [address] [facility] [place] [address] 06/07/2023 3:40 PM EDT Office Visit Nutrition & Weight Management, [facility] [address] [place] [address] Joan Bright PA-C [address] [place] [address] 07/12/2023 3:10 PM EDT Nutrition Services Nutrition & Weight Management, 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, Expires: 01/20/2024 Scheduled Procedures Name Priority Associated Diagnoses Date/Ti me COLONOSCOPY FLEXIBLE PROXIMA L DIAGNOSTIC PMS2-related Mccarthy syndrome (HNPCC4) 02/23/2023 2:00 PM EST ESOPHAGOGASTRODUODENOSCOPY ( EGD), FLEXIBLE, TRANSORAL, DIAGNOSTIC PMS2-related Mccarthy syndrome (HNPCC4) 02/23/2023 2:00 PM EST Health [...] Procedure Name Priority Date/Time Associated Diagnosis Comments URINALYSIS, REFLEX TO MICROSCOPIC Routine 01/19/2023 3:47 PM EDT PMS2-related Mccarthy syndrome (HNPCC4) documented in this encounter Results * (ABNORMAL) URINALYSIS, REFLEX TO MICROSCOPIC (01/19/2023 3:47 PM EDT) Color, Urine Yellow Colorless, Light Yellow, Yellow, Dark Yellow 01/19/2023 4:52 PM EDT [facility] Clarity, Urine Slightly Cloudy(A) Clear 01/19/2023 4:52 PM EDT [facility] Glucose, Urine Negative Negative mg/dL 01/19/2023 4:52 PM EDT [facility] Bilirubin, Urine Negative Negative 01/19/2023 4:52 PM EDT [facility] Ketone, Urine Trace(A) Negative mg/dL 01/19/2023 4:52 PM EDT [facility] Specific [place], Urine 1.036(H) 1.003 - 1.030 01/19/2023 4:52 PM EDT [facility] Blood, Urine Negative Negative 01/19/2023 4:52 PM EDT [facility] pH, Urine 6.5 5.0 - 7.5 Units 01/19/2023 4:52 PM EDT [facility] Protein, Urine 30(A) Negative mg/dL 01/19/2023 4:52 PM EDT [facility] Urobilinogen, Urine Normal Normal mg/dL 01/19/2023 4:52 PM EDT [facility] Nitrite, Urine Negative Negative 01/19/2023 4:52 PM EDT [facility] Esterase, Urine Negative Negative 01/19/2023 4:52 PM EDT [facility] RBC, Urine 0-2 0 - 2 /HPF 01/19/2023 4:52 PM EDT [facility] WBC, Urine 0-2 0 - 2 /HPF 01/19/2023 4:52 PM EDT [facility] Bacteria, Urine 151-200(A) 0 - 25 /HPF 01/19/2023 4:52 PM EDT [facility] Calcium Oxalate Crystal, Urine 20-29(A) None /HPF 01/19/2023 4:52 PM EDT [facility] Hyaline, Cast, Urine 1-4(A) None /LPF 01/19/2023 4:52 PM EDT [facility] Urine Urine specimen obtained by clean catch procedure / Unknown Non-blood Collection / Unknown 01/19/2023 3:47 PM EDT 01/19/2023 3:52 PM EDT Rolf Campo MD LAB URINE ORDERABLES [facility] [address] [place] [address] documented in this encounter Visit Diagnoses Diagnosis 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 Care Teams Clinical Appeals Rn Relationship Specialty Start Date End Date Steffi Jimenez MD [address] [facility] [place] [address] PCP - General Internal Medicine 05/04/11 documented as of this encounter"
--- OUTSIDE RECORDS SUMMARY | 2023-07-06 23:18 | External Medical Summary | Summary of Care ---
Author Name Unknown Organization [facility] Address [address] [place] [address] Phone [phone] Care Team Providers Care Behavioral Assistant Name Role Phone Steffi Zamudio MD Primary Care Provider [phone] Encounter Details Date Type Department Care Team ([facility] st Contact Info) Description 01/31/2023 Specialty Pharmacy [facility], [address] [place] [address] Medication, [place] Specialty Refill, [address] [address] Allergies Active Allergy Reactions Criticality Noted Date Comments Adhesive Tape Rash 03/23/2021 Band-aides -rash Gluten Rash 07/12/2012 Celiac disease documented as of this encounter (statuses as of 01/31/2023) Medications Medication Sig Dispensed Refills Start Date [...] thighs 90 g 11 10/21/2021 Active Nystatin 322142 UNIT/GM External Powder (Nystop)Indications :Iesha albicans infection [...] surgery for weight loss 1000 mcg IM [id number] 08/02/2021 06/04/2023 A ctive documented as of this encounter (statuses as of 01/31/2023) Active Problems Problem Noted Date Diagnosed Date 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 Overview: Genetic Testing Completed 08/30/2022: Test Result: POSITIVE Gene: PMS2 Variant: Deletion (Exons 12-14) ClinVarID: None This result is consistent with Jackson syndrome Test Ordered: Multi-Cancer Panel at [facility] (84 genes) Genes Included: AIP, ALK, APC, PATTY, AXIN2, BAP1, BARD1, BLM, BMPR1A, BRCA1, BRCA2, BRIP1, CASR, CDC73, CDH1, CDK4, CDKN1B, CDKN1C, CDKN2A (p14ARF), CDKN2A (a26ZTM2i), CEBPA, CHEK2, CTNNA1, DICER1, DIS3L2, EGFR, EPCAM, FH, FLCN, GATA2, GPC3, GREM1, HOXB13, HRAS, KIT, MAX, MEN1, MET, MITF, MLH1, MSH2, MSH3, MSH6, MUTYH, NBN, NF1, NF2, NTHL1, PALB2, PDGFRA, PHOX2B, PMS2, POLD1, POLE, POT1, FOILU1Y, PTCH1, PTEN, RAD50, RAD51C, RAD51D, RB1, RECQL4, RET, RUNX1, SDHA, SDHAF2, SDHB, SDHC, SDHD, SMAD4, SMARCA4, SMARCB1, SMARCE1, STK11, SUFU, TERC, TERT, [id number], TP53, TSC1, TSC2, VHL, WRN, WT1 Status [...] as of this encounter (statuses as of 01/31/2023) Resolved Problems Problem Noted Date Diagnosed Date [...] MFM consult Pt planning repeat c/s at [facility] 1. For patients with previous myomectomy involving [...] delivery at 36-37 weeks without amniocentesis per [employer]. Every effort [...] history of myomectomy. Scheduled for 06/25/15 at [facility] History of prior w ith short cervix, [...] as of this encounter (statuses as of 01/31/2023) Immunizations Name Administration Dates Next Due Pneumococcal [...] as of this encounter Progress Notes * Lesly Siddiqui PHARM Tech - 01/31/2023 4:31 PM EST Prescribed medication: Medication: [id number] Shipment date: Delivery method: Specialty Mail Location Medication Delivered too? Prescription Address: [address] [facility] [address] [place] Vazquez [facility] 01/31/2023,4:31 PM documented in this encounter Plan of Treatment Upcoming Encounters Date Type Department Care Team (Late st Contact Info) Description 02/16/2023 1:00 PM EST Telemedicine Plastic Surgery, [place] [address] [place] [address] Emory Martin MD [address] [place] [address] 02/23/2023 2:00 PM EST Hospital Encounter ENDO OSSC, Endoscopy Room [facility] [address] [place] [address] Ketan Hua MD [address] [place] [address] 02/23/2023 2:00 PM EST - 02/23/2023 3:00 PM EST Surgery ENDO [facility], Endoscopy Room [facility] [address] [place] [address] Ketan Hua MD [address] [place] [address] COLONOSCOPY FLEXIBLE PROXIMAL DIAGNOSTIC 03/06/2023 11:40 AM EST Telemedicine Nutrition & Weight Management, [facility] [address] [place] [address] Joan Bright PA-C [address] [place] [address] 04/09/2023 2:15 PM EST Office [facility] [place] [facility] [place] [address] Duane Perez MD [address] [facility] [place] [address] 04/26/2023 3:20 PM EST Office Visit General Internal Medicine [facility] [place] [address] [facility] [place] [address] Steffi Zamudio MD [address] [place] [address] 06/07/2023 3:40 PM EDT Office Visit Nutrition & Weight Management, [facility] [address] [facility] [place] [address] Joan Bright PA-C [address] [place] [address] 07/12/2023 3:10 PM EDT Nutrition Services Nutrition & Weight Management, [facility] [address] [employer] [place] [address] Kinsey Cage RDN [address] [place] [address] 03/07/2024 11:00 AM EST Telemedicine Hematology Oncology [facility] [address] [place] [address] Malignancy, Multidisciplinary Clinic High Risk Gi [address] [place] [address] Scheduled Procedures Name Priority Associated [...] and were consensually agreed upon. Care Teams Behavioral Assistant Relationship Specialty Start Date End Date Steffi Zamudio MD [address] [facility] [place], [place] [address] PCP - General Internal Medicine 05/04/11 documented as of this encounter
--- OUTSIDE RECORDS SUMMARY | 2023-07-06 23:18 | External Medical Summary | Summary of Care ---
Author Name Unknown Organization [facility] Address [address] [place] [address] Phone [phone] Care Team Providers Care Wholesale Agronomist Name Role Phone Steffi Zamudio MD Primary Care Provider Encounter Details Date Type Department Care Team ([facility] st Contact Info) Description 01/31/2023 Specialty Pharmacy [facility], [address] [place] [address] Medication, Mt Specialty Refill, [address] [address] Allergies Active Allergy Reactions Criticality Noted Date Comments Adhesive Tape Rash 03/23/2021 Band-aides -rash Gluten Rash 07/12/2012 Celiac disease documented as of this encounter (statuses as of 02/01/2023) Medications Medication Sig Dispensed Refills Start Date [...] thighs 90 g 11 10/21/2021 Active Nystatin 836806 UNIT/GM External Powder (Nystop)Indications :Iesha albicans infection [...] surgery for weight loss 1000 mcg IM [id number] 08/02/2021 06/04/2023 A ctive documented as of this encounter (statuses as of 02/01/2023) Active Problems Problem Noted Date Diagnosed Date 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 Overview: Genetic Testing Completed 08/30/2022: Test Result: POSITIVE Gene: PMS2 Variant: Deletion (Exons 12-14) ClinVarID: None This result is consistent with Jackson syndrome Test Ordered: Multi-Cancer Panel at [facility] (84 genes) Genes Included: AIP, ALK, APC, PATTY, AXIN2, BAP1, BARD1, BLM, BMPR1A, BRCA1, BRCA2, BRIP1, CASR, CDC73, CDH1, CDK4, CDKN1B, CDKN1C, CDKN2A (p14ARF), CDKN2A ([id number]), CEBPA, CHEK2, CTNNA1, DICER1, DIS3L2, EGFR, EPCAM, FH, FLCN, GATA2, GPC3, GREM1, HOXB13, HRAS, KIT, MAX, MEN1, MET, MITF, MLH1, MSH2, MSH3, MSH6, MUTYH, NBN, NF1, NF2, NTHL1, PALB2, PDGFRA, PHOX2B, PMS2, POLD1, POLE, POT1, VPBPZ4S, PTCH1, PTEN, RAD50, RAD51C, RAD51D, RB1, RECQL4, RET, RUNX1, SDHA, SDHAF2, SDHB, SDHC, SDHD, SMAD4, SMARCA4, SMARCB1, SMARCE1, STK11, SUFU, TERC, TERT, [id number], TP53, TSC1, TSC2, VHL, WRN, WT1 Status [...] as of this encounter (statuses as of 02/01/2023) Resolved Problems Problem Noted Date Diagnosed Date [...] consult Pt planning repeat c/s at [facility] 1. For patients [...] delivery at 36-37 weeks without amniocentesis per [employer]. Every [...] of myomectomy. Scheduled for 06/25/[address] [facility] History of prior [...] as of this encounter (statuses as of 02/01/2023) Immunizations Name Administration Dates Next Due Pneumococcal [...] Mail Location Medication Delivered too? Prescription Address: [address] [facility] [address] [place] Vazquez [facility] 01/31/2023,4:31 PM documented in this encounter Plan of Treatment Upcoming Encounters Date Type Department Care Team (Late st Contact Info) Description 02/16/2023 1:00 PM EST Telemedicine Plastic Surgery, [place] [address] [place] [address] Emory Martin MD [address] [place] [address] 02/23/2023 2:00 PM EST Hospital Encounter ENDO OSSC, Endoscopy Room [facility] [address] [place] [address] Ketan Hua MD [address] [place] [address] 02/23/2023 2:00 PM EST - 02/23/2023 3:00 PM EST Surgery ENDO [facility], Endoscopy Room [facility] [address] [place] [address] Ketan Hua MD [address] [place] [address] COLONOSCOPY FLEXIBLE PROXIMAL DIAGNOSTIC 03/06/2023 11:40 AM EST Telemedicine Nutrition & Weight Management, [facility] [address] [place] [address] Joan Bright PA-C [address] [place] [address] 04/09/2023 2:15 PM EST [facility] [place] [address] [facility] [place] [address] Duane Perez MD 200 [facility] [place] [address] 04/26/2023 3:20 PM EST Office Visit General Internal Medicine [facility] [place] [address] [facility] [place] [address] Steffi Zamudio MD [address] [place] [address] 06/07/2023 3:40 PM EDT Office Visit Nutrition & Weight Management, [facility] [address] [facility] [place] [address] Joan Bright PA-C [address] [place] [address] 07/12/2023 3:10 PM EDT Nutrition Services Nutrition & Weight Management, [facility] 132 [facility] [place] [address] Kinsey Cage RDN [address] [place] [address] 03/07/2024 11:00 AM EST Telemedicine Hematology Oncology [facility] [address] [place] [address] Malignancy, Multidisciplinary Clinic High Risk Gi [address] [place] [address] Scheduled Procedures Name Priority Associated [...] and were consensually agreed upon. Care Teams Wholesale Agronomist Relationship Specialty Start Date End Date Steffi Zamudio MD 200 [facility] [place], [place] [address] PCP - General Internal Medicine 05/04/11 documented as of this encounter
--- OUTSIDE RECORDS SUMMARY | 2023-07-06 23:18 | External Medical Summary | Summary of Care ---
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] Procedures COLONOSCOPY, DIAGNOSTIC (RECTUM) EGD, FLEXIBLE, DIAGNOSTIC COLONOSCOPY FLEXIBLE PROXIMAL DIAGNOSTIC ESOPHAGOGASTRODUODENOSCOPY (EGD), FLEXIBLE, TRANSORAL, DIAGNOSTIC Referral ID Status Reason Start Date Expiration Date Visits Re quested Visits Authorized [id number] Encounter Details Date Type Department Care Team (Latest Contact Info) Description 02/23/2023 1:22 PM EST - 02/23/2023 3:19 PM EST Hospital Encounter ENDO [facility], Endoscopy Room [facility] [address] [place] [phone] Ketan Hua MD [address] [facility] [place] [id number] Various: UGI,GICOLON Discharge Disposition: Home - Self Care Allergies Active Allergy Reactions Criticality Noted Date Comments Adhesive Tape Rash 03/23/2021 Band-aides -rash Gluten Rash 07/12/2012 Celiac disease documented as of this encounter (statuses as of 02/24/2023) Medications Medication Sig Dispensed Refills Start Date End Date Status Hydroquinone 4 % External Cream Apply to brown spots on face 2x per day for 2 months 28.35 g 1 1 Active Ventolin HFA 108 (90 Base) MCG/ACT Inhalation Aerosol SolutionIndicatio ns:COVID-19 virus infection Inhale by mouth 2 Puffs every 4 hours as needed for Wheezing. 18 g 1 2 Active Additional Information Patient not taking.Reported on 01/25/2023 Vitamin D 50 MCG (2000 UT) Oral CapsuleIndication s:Status following gastric banding surgery for weight loss Take by mouth 2,000 Units in the morning. 0 2 Active LORazepam 0.5 MG Oral Tablet (Ativan)Indicatio ns:Depression with anxiety Take by mouth 1 Tablet 2 times a day as needed for Anxiety. 20 Tablet 0 2 Active Viactiv Calcium Immune 650-20-5.5 MG-MCG-MG Oral Tablet Chewable (Calcium-Cholecal ciferol-Zinc) Take by mouth 2 Tablets daily . 0 Active Womens One Daily Oral Tablet Take by mouth 2 Gum Dosing Unit daily . 0 Active Cyclobenzaprine HCl 5 MG Oral Tablet (Flexeril)Indicat ions:Neck pain TAKE 1 TABLET BY MOUTH TWICE DAILY NEEDED FOR MUSCLE SPASM 30 Tablet 2 2 Active Additional Information Patient not taking.Reported on 02/20/2023 Calcium Carb-Cholecalcife rol 600-400 MG-UNIT Oral Tablet 1 Tablet . 0 2 Active Adapalene 0.1 % External Gel (Differin) Apply topically to affected area at bedtime . Apply to face and chest and thighs 90 g 11 2 Active metroNIDAZOLE 0.75 % External Lotion APPLY TOPICALLY TO FACE TWICE DAILY 59 mL 5 3 Active Zinc 50 MG Oral CapsuleIndication s:Intestinal postoperative nonabsorption Take 1 Capsule by mouth in the morning. 0 Active Iron 325 (65 Fe) MG Oral TabletIndications :Status following gastric banding surgery for weight loss,Iron deficiency anemia secondary to inadequate dietary iron intake Take 1 tablet by mouth once daily 90 Tablet 2 3 Active buPROPion HCl ER (XL) 150 MG Oral Tablet Extended Release 24 Hour (Wellbutrin XL)Indications:Mi xed emotional features as adjustment reaction Take 1 Tablet by mouth in the morning. 30 Tablet 5 3 Active Wegovy 2.4 MG/0.75ML Subcutaneous Solution Auto-injector (Semaglutide-Weig ht Management)Indica tions:Obesity, Class I, BMI 30-34.9 INJECT 2.4 MG SUBCUTANEOUSLY ONCE A WEEK 9 mL 0 3 Active Wegovy 2.4 MG/0.75ML Subcutaneous Solution Auto-injector (Semaglutide-Weig ht Management) Inject 2.4 mg under the skin once a week. 9 mL 1 3 Active Nystatin 804566 UNIT/GM External Powder (Nystop)Indicatio ns:Iesha albicans infection Apply topically to affected area 3 times a day. 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 (84 genes) Genes Included: AIP, ALK, APC, PATTY, AXIN2, BAP1, BARD1, BLM, BMPR1A, BRCA1, BRCA2, BRIP1, CASR, CDC73, CDH1, CDK4, CDKN1B, CDKN1C, CDKN2A (p14ARF), CDKN2A (a27VZD8p), CEBPA, CHEK2, CTNNA1, DICER1, DIS3L2, EGFR, EPCAM, FH, FLCN, GATA2, GPC3, GREM1, HOXB13, HRAS, KIT, MAX, MEN1, MET, MITF, MLH1, MSH2, MSH3, MSH6, MUTYH, NBN, NF1, NF2, NTHL1, PALB2, PDGFRA, PHOX2B, PMS2, POLD1, POLE, POT1, HDTBG2P, PTCH1, PTEN, RAD50, RAD51C, RAD51D, RB1, RECQL4, RET, RUNX1, SDHA, SDHAF2, SDHB, SDHC, SDHD, SMAD4, SMARCA4, SMARCB1, SMARCE1, STK11, SUFU, TERC, TERT, TEXL950, TP53, TSC1, TSC2, VHL, WRN, WT1 Status [...] as of this encounter (statuses as of 02/24/2023) Resolved Problems Problem Noted Date Diagnosed Date [...] as of this encounter (statuses as of 02/24/2023) Immunizations Name Administration Dates Next Due Pneumococcal [...] Sign Reading Time Taken Comments Blood Pressure 96/63 02/23/2023 2:59 PM EST Pulse 87 02/23/2023 2:59 PM EST Temperature 36.2 C (97.2 F) 02/23/2023 2:59 PM ES T Respiratory Rate 14 02/23/2023 2:59 PM EST Oxygen Saturation 100% 02/23/2023 2:59 PM EST Inhaled Oxygen Concentration - - Weight 70.3 kg (155 lb) 02/20/2023 12:33 PM EST Height 170.2 cm (5' 7") 02/20/2023 12:33 PM EST Body Mass Index 24.28 02/20/2023 12:33 PM EST documented in this [...] No 07/07/2014 documented as of this encounter H&P Notes * Ketan Hua MD - 02/23/2023 1:53 PM EST Procedure(s): Colonoscopy; with Indication(s) of evaluation and management of polyposis syndromes Upper GI Endoscopy; with Indication(s) of polyposis syndrome Endoscopy Pre-Procedure Assessment: Prior to the procedure, the patient was identified. The patient's history, medications and allergies were reviewed as per the Anesthesia Assessment. The patient is competent. The risks and benefits of the proposed procedure and the planned sedation were discussed with the patient. All questions were answered and informed consent for the procedure was obtained. Ht 1.702 m (5' 7") | Wt 70.3 kg (155 lb) | LMP 02/23/2023 (Exact Date) | BMI 24.28 kg/m | BSA 1.82 m Physical Exam: Mental Status Examination: alert and oriented. Airway Examination: normal oropharyngeal airway and neck mobility. Respiratory Examination: clear to auscultation. CV Examination: normal. ASA Grade: II - A patient with mild systemic disease. Patient was explained in detail regarding risks, benefits, limitations and alternatives of the above endoscopic procedure. Risks of intravenous sedation used for procedure were also explained. Risks include, but not limited to perforation, bleeding, infection, respiratory distress, cardiac arrest and . Patient is also aware about the possibility of missed lesions. Patient's questions were answered. The patient verbalized understanding of the information and agreed to undergo the procedure. After reviewing the risks and benefits, the patient was deemed in satisfactory condition to undergothe procedure. The anesthesia plan is to use general anesthesia. documented in this encounter Procedure Notes * Steffi Zamudio MD - 02/23/2023 1:55 PM ESTAssociated Order(s): COLONOSCOPY [facility] Patient Name: Parris Gay Procedure Date: 02/23/2023 1:55 PM Date of : 1980 Admit Type: Outpatient Note Status: Finalized Date of : 1980 Admit Type: Outpatient Age: 42 Room: Endo 2 Gender: Female Note Status: Finalized Procedure: Colonoscopy Indications: Jackson Syndrome Providers: Ketan Hua MD (Doctor), Clinton Quinonez RN, Raimundo Fay CRNA (Anesthesia Staff) Referring MD: Steffi Zamudio MD (Referring MD) Medicines: See the Anesthesia note for documentation of the administered medications Complications: No immediate complications. Procedure: Pre-Anesthesia Assessment: - See the other procedure note for documentation of the pre-procedure assessment. - - Patient identification and proposed procedure were verified prior to the procedure by the physician and the nurse. The procedure was verified in the procedure area. - Prior to the procedure, a History and Physical was performed, and patient medications, allergies and sensitivities were reviewed. The patient's tolerance of previous anesthesia was reviewed. - The risks and benefits of the procedure and the sedation options and risks were discussed with the patient. All questions were answered and informed consent was obtained. After I obtained informed consent, the scope was passed under direct vision. All instruments were visually inspected immediately before and after removal from the patient to ensure they are fully intact. Throughout the procedure, the patient's blood pressure, pulse, and oxygen saturations were monitored continuously. The [id number] Colonoscope ([id number]) was introduced through the anus and advanced to the cecum, identified by appendiceal orifice and ileocecal valve. The colonoscopy was performed without difficulty. The patient tolerated the procedure well. The quality of the bowel preparation was good. Findings & Specimens: The perianal and digital rectal examinations were normal. The entire examined colon appeared normal on direct and retroflexion views. Impression: - The entire examined colon is normal on direct and retroflexion views. - No specimens collected. Recommendation: - Repeat colonoscopy in 2 years for screening purposes. - Discharge patient to home. Ketan Hua MD 02/23/2023 2:51:33 PM This report has been signed electronically. * Steffi Zamudio MD - 02/23/2023 1:54 PM ESTAssociated Order(s): UPPER GI ENDOSCOPY [facility] Patient Name: Parris Gay Procedure Date: 02/23/2023 1:54 PM Date of : 1980 Admit Type: Outpatient Note Status: Finalized Date of : 1980 Admit Type: Outpatient Age: 42 Room: Endo 2 Gender: Female Note Status: Finalized Procedure: Upper GI endoscopy Indications: Hereditary nonpolyposis colorectal cancer (Jackson Syndrome) Providers: Ktean Hua MD (Doctor), Clinton Quinonez RN, Raimundo Fay CRNA (Anesthesia Staff) Referring MD: Steffi Zamudio MD (Referring MD) Medicines: See the Anesthesia note for documentation of the administered medications Complications: No immediate complications. Procedure: Pre-Anesthesia Assessment: - - Patient identification and proposed procedure were verified prior to the procedure by the physician and the nurse. The procedure was verified in the procedure area. - Prior to the procedure, a History and Physical was performed, and patient medications, allergies and sensitivities were reviewed. The patient's tolerance of previous anesthesia was reviewed. - The risks and benefits of the procedure and the sedation options and risks were discussed with the patient. All questions were answered and informed consent was obtained. After obtaining informed consent, the endoscope was passed under direct vision. All instruments were visually inspected immediately before and after removal from the patient to ensure they are fully intact. Throughout the procedure, the patient's blood pressure, pulse, and oxygen saturations were monitored continuously. The GIF-H180 Endoscope ([id number]) was introduced through the mouth, and advanced to the third part of duodenum. The upper GI endoscopy was accomplished without difficulty. The patient tolerated the procedure well. Findings & Specimens: The esophagus was normal. Evidence of a sleeve gastrectomy was found in the gastric body. This was characterized by healthy appearing mucosa. The examined duodenum was normal. The cardia and gastric fundus were normal on retroflexion. Impression: - Normal esophagus. - A sleeve gastrectomy was found, characterized by healthy appearing mucosa. - Normal examined duodenum. - No specimens collected. Recommendation: - Repeat upper endoscopy in 2 years for screening purposes. - Perform a colonoscopy today. Ketan Hua MD 02/23/2023 2:27:08 PM This report has been signed electronically. documented in this encounter Nursing Notes * Anna Marie Rodgers RN - 02/23/2023 3:18 PM EST Patient is alert, pain free and tolerating po fluids prior to discharge. Patient has been visited by Dr. Hua. Patient has received and demonstrates understanding of discharge instructions. Patient ambulated to private auto accompanied by endo staff into care of friend. * Anna Marie Rodgers RN - 02/23/2023 3:10 PM EST Procedure findings and d/c instructions reviewed w/ pt. Copies given. Verbalized understanding. VSS. Monitor d/c'd. Dressing indep at bedside. Call avery in reach. * Anna Marie Rodgers RN - 02/23/2023 2:54 PM EST HOB upright. Angelika liquids w/o problems. Dr Hua in to speak w/ pt regarding procedure findings. * Anna Marie Rodgers RN - 02/23/2023 2:44 PM EST Pt received in recovery lying on L side w/ HOB elevated. Abd soft. VSS. Call avery in reach. * Pavel Quinonez RN - 02/23/2023 2:42 PM EST Mid abdominal pressure given per Dr. Hua to assist with scope advancement. Pt tolerated well See anesthesia record for medication administered during procedure. Pavel Quinonez RN Pre cleaning of scope at the bedside started by gis mapping technician. * Audelia Martinez RN - 02/23/2023 1:51 PM EST The following pt discharge instructions reviewed with pt prior to prodedure: No driving today. No alcohol today. No signing of legal documents. Rest as much as possible today and can return to normal activities tomorrow. No operating any heavy equipment today. Diet as tolerated. Pt verbalized understanding. Patient or the Patients Legally Authorized Truck Operator has been advised that (1) the Patient meets criteria for testing and (2) the administration of anesthesia, radiation or other imaging agents may have a harmful impact to an unborn child. The Patient or Patients Representativewere offered the opportunity to ask questions as to necessity of such testing and potential outcomes. Consent for testing has been declined. documented in this encounter Plan of Treatment Upcoming Encounters Date Type Department Care Team (Late st Contact Info) Description 03/06/2023 11:40 AM EST Telemedicine Nutrition & Weight Management, [facility] [address] [place] [address] Joan Bright PA-C [address] [place] [address] 04/09/2023 2:15 PM EST Office Visit [facility]atology [facility] [address] [facility] [place] [address] Duane Perez MD [address] [place] [address] 04/19/2023 11:00 AM EST Office Visit Plastic Surgery, [place] [address] [place] [address] Emory Martin MD [address] [place] [address] 04/26/2023 3:20 PM EST Office Visit General Internal Medicine [facility] [address] [facility] [place] [address] Steffi Zamudio MD [address] [facility] [place] [address] 06/07/2023 3:40 PM EDT Office Visit Nutrition & Weight Management, [facility] [address] [facility] [place] [address] Joan Bright PA-C [address] [place] [address] 07/12/2023 3:10 PM EDT Nutrition Services Nutrition & Weight Management, [facility] [address] [facility] [place] [address] Kinsey Cage RDN [address] [place] [address] 03/07/2024 11:00 AM EST Telemedicine Hematology Oncology [facility] [address] [place] [id number] Malignancy, Multidisciplinary Clinic [facility] [address] [place] [address] Scheduled Procedures Name Priority Associated Diagnoses Date/Ti [...] Procedure Name Priority Date/Time Associated Diagnosis Comments COLONOSCOPY 02/23/2023 1:55 PM EST UPPER GI ENDOSCOPY 02/23/2023 1: 54 PM EST documented in this encounter Results * COLONOSCOPY (02/23/2023 1:55 PM EST) 02/23/2023 1:55 PM EST Narrative Procedure Note Steffi Zamudio MD - 02/23/2023 1:55 PM EST [facility] Patient Name: Parris Gay Procedure Date: 02/23/2023 1:55 PM Date of : 1980 Admit Type: Outpatient Note Status:Finalized Date of : 1980 Admit Type: Outpatient Age: 42 Room: Endo 2 Gender: Female Note Status: Finalized Procedure: Colonoscopy Indications: Jackson Syndrome Providers: Ketan Hua MD (Doctor), Clinton Quinonez RN,Riamundo Fay CRNA (Anesthesia Staff) Referring MD: Steffi Zamudio MD (Referring MD) Medicines: See the Anesthesia note for documentation of theadministered medications Complications: No immediate complications. Procedure: Pre-Anesthesia Assessment: - See the other procedure note for documentation ofthe pre-procedure assessment. - - Patient identification and proposed procedurewere verified prior to the procedure by the physician and the nurse. Theprocedure was verified in the procedure area. - Prior to the procedure, a History and Physicalwas performed, and patient medications, allergies and sensitivities werereviewed. The patient's tolerance of previous anesthesia was reviewed. - The risks and benefits of the procedure and thesedation options and risks were discussed with the patient. All questions wereanswered and informed consent was obtained. After I obtained informed consent, the scope waspassed under direct vision. All instruments were visually inspected immediatelybefore and after removal from the patient to ensure they are fully intact. Throughout the procedure, the patient's bloodpressure, pulse, and oxygen saturations were monitored continuously. The [id number] ([id number]) was introduced through the anus and advanced to the cecum,identified by appendiceal orifice and ileocecal valve. The colonoscopy was performedwithout difficulty. The patient tolerated the procedure well. The quality of thebowel preparation was good. Findings & Specimens: The perianal and digital rectal examinations were normal. The entire examined colon appeared normal on direct and retroflexionviews. Impression: - The entire examined colon is normal on direct andretroflexion views. - No specimens collected. Recommendation: - Repeat colonoscopy in 2 years for screeningpurposes. - Discharge patient to home. Ketan Hua MD 02/23/2023 2:51:33 PM This report has been signed electronically. Steffi Zamudio MD GASTRO LOWER * UPPER GI ENDOSCOPY (02/23/2023 1:54 PM EST) 02/23/2023 1:54 PM EST Narrative Procedure Note Steffi Zamudio MD - 02/23/2023 1:54 PM EST [facility] Patient Name: Parris Gay Procedure Date: 02/23/2023 1:54 PM Date of : 1980 Admit Type: Outpatient Note Status:Finalized Date of : 1980 Admit Type: Outpatient Age: 42 Room: [facility] 2 Gender: Female Note Status: Finalized Procedure: Upper GI endoscopy Indications: Hereditary nonpolyposis colorectal cancer (LynchSyndrome) Providers: Ketan Hua MD (Doctor), Clinton Quinonez RN, Raimundo Fay CRNA (Anesthesia Staff) Referring MD: Steffi Zamudio MD (Referring MD) Medicines: See the Anesthesia note for documentation of theadministered medications Complications: No immediate complications. Procedure: Pre-Anesthesia Assessment: - - Patient identification and proposed procedurewere verified prior to the procedure by the physician and the nurse. Theprocedure was verified in the procedure area. - Prior to the procedure, a History and Physicalwas performed, and patient medications, allergies and sensitivities werereviewed. The patient's tolerance of previous anesthesia was reviewed. - The risks and benefits of the procedure and thesedation options and risks were discussed with the patient. All questions wereanswered and informed consent was obtained. After obtaining informed consent, the endoscope waspassed under direct vision. All instruments were visually inspected immediatelybefore and after removal from the patient to ensure they are fully intact. Throughout the procedure, the patient's bloodpressure, pulse, and oxygen saturations were monitored continuously. The GIF-H180 Endoscope([id number]) was introduced through the mouth, and advanced to the third part ofduodenum. The upper GI endoscopy was accomplished without difficulty. The patienttolerated the procedure well. Findings & Specimens: The esophagus was normal. Evidence of a sleeve gastrectomy was found in the gastric body. Thiswas characterized by healthy appearing mucosa. The examined duodenum was normal. The cardia and gastric fundus were normal on retroflexion. Impression: - Normal esophagus. - A sleeve gastrectomy was found, characterized byhealthy appearing mucosa. - Normal examined duodenum. - No specimens collected. Recommendation: - Repeat upper endoscopy in 2 years for screeningpurposes. - Perform a colonoscopy today. Ketan Hua MD 02/23/2023 2:27:08 PM This report has been signed electronically. Steffi Zamuido MD GASTRO UPPER documented in this encounter Administered Medications Inactive Administered Medications - up to 3 most recent administrations Medication Order MAR Action Action Date Dose Rate Site isolyte-S pH 7.4 infusion Intravenous, Plasma-LYTE 148, isolyte-S, and isolyte-S pH 7.4 are considered equivalent - including for MAR barcode scanning., CONTINUOUS, Starting on Sun02/23/23 at 1430, Until Sun02/23/23 at 1922, Pre-Op Continue from Pre-Op 02/23/2023 2:18 PM EST 100 mL/hr New Bag 02/23/2023 2:00 PM EST 100 mL/hr documented in this encounter Active and Recently Administered Medications Times are shown in EST. Continuous Medication Order 02/21/2023 02/22/2023 02/23/2023 isolyte-S pH 7.4 infusion Intravenous, Plasma-LYTE 148, isolyte-S, and isolyte-S pH 7.4 are considered equivalent - including for MAR barcode scanning., CONTINUOUS, Starting on Sun02/23/23 at 1430, Until Sun02/23/23 at 1922, Pre-Op 1400 (New Bag - Prov ider: [place] Martinez RN)1418 (Continue from Pre-Op - Provider: Raimundo Fay CRNA)1439 (Anes Intra-Op Fluid - Provider: Raimundo Fay CRNA) documented in this encounter Advance Directives Latest [...] and were consensually agreed upon. Care Teams Wood Tank Erector Relationship Specialty Start Date End Date Steffi Zamudio MD [address] [facility], [place] [address] PCP - General Internal Medicine 05/04/11 documented as of this encounter
--- OUTSIDE RECORDS SUMMARY | 2023-07-06 23:18 | External Medical Summary | Summary of Care ---
Author Name Unknown Organization [facility] Address [address] [place] [address] Phone [phone] Care Team Providers Care Lever Operator Name Role Phone Steffi Zamudio MD Primary Care Provider [phone] Reason for Visit * Reason Onset Date Comments Appointment 01/31/2023 Return appointme nt with the [facility] Encounter Details Date Type Department Care Team (Late st Contact Info) Description 01/31/2023 Telephone Genetics HemOnc, [facility] [address] [place] [address] Malignancy, Multidisciplinary Clinic High Risk Gi [address] [place] [address] Appointment (Return appointment with the I... Allergies Active Allergy Reactions Criticality Noted Date [...] taking.Reported on 01/25/2023 Vitamin D 50 MCG (1999) Oral CapsuleIndications: [...] thighs 90 g 11 10/21/2021 Active Nystatin 212507 UNIT/GM External Powder (Nystop)Indications :Iesha albicans infection [...] surgery for weight loss 1000 mcg IM [id number] 08/02/2021 06/04/2023 A ctive documented as of [...] CDH1, CDK4, CDKN1B, CDKN1C, CDKN2A (p14ARF), CDKN2A ([id number]), CEBPA, CHEK2, CTNNA1, DICER1, DIS3L2, EGFR, EPCAM, FH, FLCN, GATA2, GPC3, GREM1, HOXB13, HRAS, KIT, MAX, MEN1, MET, MITF, MLH1, MSH2, MSH3, MSH6, MUTYH, NBN, NF1, NF2, NTHL1, PALB2, PDGFRA, PHOX2B, PMS2, POLD1, POLE, POT1, TWRPD4K, PTCH1, PTEN, RAD50, RAD51C, RAD51D, RB1, RECQL4, RET, RUNX1, SDHA, SDHAF2, SDHB, SDHC, SDHD, SMAD4, SMARCA4, SMARCB1, SMARCE1, STK11, SUFU, TERC, TERT, [id number], TP53, TSC1, TSC2, VHL, WRN, WT1 Status [...] delivery at 36-37 weeks without amniocentesis per [employer]. Every effort [...] Miscellaneous Notes * Telephone Encounter - Nava Tamez CHRA - 01/31/2023 12:07 PM EST Parris Mali returned my call regarding a potential return appointment with the [facility]. Parris Gay is interested in a follow-up telemedicine appointment with the [facility] team on 03/07/2024 at 11:00 AM. Note: For scheduling return appointments in the future, Parris's children are at her ex-partner's every other Sunday. Parris prefers to schedule appointments on those particular Fridays when the children are in the care of her ex-partner. LYNDA Almanza 01/31/2023 12:09 PM * Telephone Encounter - Nava Tamez CHRA - 01/31/2023 11:57 AM EST I attempted to contact Parris Gay today regarding a potential return visit with the [facility]. The patient was unavailable, so I left a message with my contact information. First clinic appointment was 01/19/2023, and I reached out to offer an appointment in December 2023. LYNDA Almanza 01/31/2023 11:58 AM documented in this encounter Plan of Treatment Upcoming Encounters Date Type Department Care Team (Late st Contact Info) Description 02/16/2023 1:00 PM EST [facility] [address] [place] [address] Emory Martin MD [address] [place] [address] 02/23/2023 2:00 PM EST Hospital Encounter ENDO OSSC, Endoscopy Room [facility] [address] [place] [phone] Ketan Hua MD [address] [place] [address] 02/23/2023 2:00 PM EST - 02/23/2023 3:00 PM EST Surgery ENDO OSSC, Endoscopy Room [facility] [address] [place] [phone] Ketan Hua MD [address] [place] [address] COLONOSCOPY FLEXIBLE PROXIMAL DIAGNOSTIC 03/06/2023 11:40 AM EST Telemedicine Nutrition & Weight Management, [facility] [address] [place] [address] Joan Bright, SHANDA [address] [place] [address] 04/09/2023 2:15 PM EST Office Visit Dermatology [facility] [address] [place] [address] Duane Perez MD 200 [facility] [place] [address] 04/26/2023 3:20 PM EST Office Visit General Internal Medicine [facility] [address] [facility] [place] [address] Steffi Zamudio MD [address] [facility] [place] [address] 06/07/2023 3:40 PM EDT Office Visit Nutrition & Weight Management, [facility] [address] [address] Joan Bright, SHANDA [address] [place] [address] 07/12/2023 3:10 PM EDT Nutrition Services Nutrition & Weight Management, [facility] [address] [place] [address] Kinsey Cage RDN [address] [place] [address] 03/07/2024 11:00 AM EST Telemedicine Hematology Oncology [facility] [address] [place] [address] Malignancy, Multidisciplinary Clinic High Risk Gi [address] [place] [address] Scheduled Procedures Name Priority Associated Diagnoses Date/Ti [...] and were consensually agreed upon. Care Teams Lever Operator Relationship Specialty Start Date End Date Steffi Zamudio MD [address] [place] [address], [place] [address] PCP - General Internal Medicine 05/04/11 documented as of this encounter
--- OUTSIDE RECORDS SUMMARY | 2023-07-06 23:18 | External Medical Summary | Summary of Care ---
Author Name Unknown Organization [facility] Address [address] [place] [address] Phone [phone] Care Team Providers Care Boatbuilder Supervisor Name Role Phone Steffi Zamudio MD Primary Care Provider [phone] Reason for Visit * Reason Onset Date Comments Follow Up 02/22/2023 Encounter Details Date Type Department Care Team (Late st Contact Info) Description 02/22/2023 Telephone Plastic Surgery, [place] [address] [place] [address] Emory Martin MD [address] [place], [place] [phone] Follow Up Allergies Active Allergy Reactions Criticality Noted Date Comments Adhesive Tape Rash 03/23/2021 Band-aides -rash Gluten Rash 07/12/2012 Celiac disease documented as of this encounter (statuses as of 02/28/2023) Medications Medication Sig Dispensed Refills Start Date [...] surgery for weight loss 1000 mcg IM [id number] 08/02/2021 06/04/2023 A ctive documented as of this encounter (statuses as of 02/28/2023) Active Problems Problem Noted Date Diagnosed Date 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 Overview: Genetic Testing Completed 08/30/2022: Test Result: POSITIVE Gene: PMS2 Variant: Deletion (Exons 12-14) ClinVarID: None This result is consistent with Jackson syndrome Test Ordered: Multi-Cancer Panel at [facility] (84 genes) Genes Included: AIP, ALK, APC, PATTY, AXIN2, BAP1, BARD1, BLM, BMPR1A, BRCA1, BRCA2, BRIP1, CASR, CDC73, CDH1, CDK4, CDKN1B, CDKN1C, CDKN2A (p14ARF), CDKN2A (o60PUM0n), CEBPA, CHEK2, CTNNA1, DICER1, DIS3L2, EGFR, EPCAM, FH, FLCN, GATA2, GPC3, GREM1, HOXB13, HRAS, KIT, MAX, MEN1, MET, MITF, MLH1, MSH2, MSH3, MSH6, MUTYH, NBN, NF1, NF2, NTHL1, PALB2, PDGFRA, PHOX2B, PMS2, POLD1, POLE, POT1, TZLIM2Z, PTCH1, PTEN, RAD50, RAD51C, RAD51D, RB1, RECQL4, RET, RUNX1, SDHA, SDHAF2, SDHB, SDHC, SDHD, SMAD4, SMARCA4, SMARCB1, SMARCE1, STK11, SUFU, TERC, TERT, TJSM055, TP53, TSC1, TSC2, VHL, WRN, WT1 Status [...] as of this encounter (statuses as of 02/28/2023) Resolved Problems Problem Noted Date Diagnosed Date [...] delivery at 36-37 weeks without amniocentesis per [employer]. Every effort [...] as of this encounter (statuses as of 02/28/2023) Immunizations Name Administration Dates Next Due Pneumococcal [...] encounter Miscellaneous Notes * Telephone Encounter - Isabell Estrada OSA - 02/22/2023 3:44 PM EST Phoned pt to send estimate to personal email due to pt not having my [facility]... Estimate was scanned to pts personal email: [email or web address] documented in this encounter Plan of Treatment Upcoming Encounters Date Type Department Care Team (Late st Contact Info) Description 03/06/2023 11:40 AM EST Telemedicine Nutrition & Weight Management, [facility] 132 [facility] [place] [address] Joan Bright PA-C [address] [place] [address] 04/09/2023 2:15 PM EST Office Visit Dermatology [facility] [address] [facility] [place] [address] Duane Perez MD [address] [facility] [place] [address] 04/19/2023 11:00 AM EST Office Visit Plastic Surgery, [address] [address] Emory aMrtin MD [facility] [place] [address] 04/26/2023 3:20 PM EST Office Visit General Internal Medicine [facility] [address] [place] [address] Steffi Zamudio MD [address] [facility] [place] [address] 06/07/2023 3:40 PM EDT Office Visit Nutrition & Weight Management, [facility] 132 [facility] [place] [address] Joan Bright PA-C [address] [place] [address] 07/12/2023 3:10 PM EDT Nutrition Services Nutrition & Weight Management, [facility] [address] [place] [address] Kinsey Cage RDN [address] [place] [address] 03/07/2024 11:00 AM EST Telemedicine Hematology Oncology [facility], [address] [phone] Malignancy, Multidisciplinary Clinic High Risk Gi [address] [place] [address] Scheduled Procedures Name Priority Associated [...] and were consensually agreed upon. Care Teams Boatbuilder Supervisor Relationship Specialty Start Date End Date Steffi Zamudio MD [address] [place] [address] PCP - General Internal Medicine 05/04/11 documented as of this encounter
--- OUTSIDE RECORDS SUMMARY | 2023-07-06 23:18 | External Medical Summary | Summary of Care ---
Author Name Unknown Organization [facility] Address [address] [place] [address] Phone [phone] Care Team Providers Care Ms Access Database Developer Name Role Phone Steffi Zamudio MD Primary Care Provider [phone] Encounter Details Date Type Department Care Team (Late st Contact Info) Description 02/16/2023 Telephone Gastroenterology, [facility] [address] [place] [address] Services, Scheduling [address] [place] [address] Allergies Active Allergy Reactions Criticality Noted Date Comments Adhesive Tape Rash 03/23/2021 Band-aides -rash Gluten Rash 07/12/2012 Celiac disease documented as of this encounter (statuses as of 02/19/2023) Medications Medication Sig Dispensed Refills Start Date [...] thighs 90 g 11 10/21/2021 Active Nystatin 895604 UNIT/GM External Powder (Nystop)Indications :Iesha albicans infection [...] surgery for weight loss 1000 mcg IM [id number] 08/02/2021 06/04/2023 A ctive documented as of this encounter (statuses as of 02/19/2023) Active Problems Problem Noted Date Diagnosed Date [...] CDH1, CDK4, CDKN1B, CDKN1C, CDKN2A (p14ARF), CDKN2A (b18USR6m), CEBPA, CHEK2, CTNNA1, DICER1, DIS3L2, EGFR, EPCAM, FH, FLCN, GATA2, GPC3, GREM1, HOXB13, HRAS, KIT, MAX, MEN1, MET, MITF, MLH1, MSH2, MSH3, MSH6, MUTYH, NBN, NF1, NF2, NTHL1, PALB2, PDGFRA, PHOX2B, PMS2, POLD1, POLE, POT1, KDIQC6R, PTCH1, PTEN, RAD50, RAD51C, RAD51D, RB1, RECQL4, RET, RUNX1, SDHA, SDHAF2, SDHB, SDHC, SDHD, SMAD4, SMARCA4, SMARCB1, SMARCE1, STK11, SUFU, TERC, TERT, PTMO109, TP53, TSC1, TSC2, VHL, WRN, WT1 Status [...] as of this encounter (statuses as of 02/19/2023) Resolved Problems Problem Noted Date Diagnosed Date [...] as of this encounter (statuses as of 02/19/2023) Immunizations Name Administration Dates Next Due Pneumococcal [...] encounter Miscellaneous Notes * Telephone Encounter - Chino Hudson OSA - 02/19/2023 2:25 PM EST Spoke to pt, will keep 02/23 appt * Telephone Encounter - Héctor Han OSA - 02/16/2023 1:48 PM EST Pt is wanting someone to get in touch with her about possibly rescheduling her upcoming procedure on the 02/23. As of now she wants to keep but would like someone to get in touch to know where exactlyshe would fall if rescheduled. Please advise. Thank you documented in this encounter Plan of Treatment Upcoming Encounters Date Type Department Care Team (Late st Contact Info) Description 02/23/2023 2:00 PM EST Hospital Encounter ENDO OSSC, Endoscopy Room [facility] [address] [place] [phone] Ketan Hua MD [address] [place] [address] 02/23/2023 2:00 PM EST - 02/23/2023 3:00 PM EST Surgery ENDO OSSC, Endoscopy Room [facility] [address] [place] [phone] Ketan Hua MD [address] [place] [address] COLONOSCOPY FLEXIBLE PROXIMAL DIAGNOSTIC 03/06/2023 11:40 AM EST Telemedicine Nutrition & Weight Management, [facility] [address] [place] [address] Joan Bright PA-C [address] [place] [address] 04/09/2023 2:15 PM EST Office Visit Dermatology [facility] [address] [place] [address] Duane Perez MD [address] [place] [address] 04/26/2023 3:20 PM EST Office Visit General Internal Medicine [facility] [address] [place] [address] Steffi Zamudio MD 200 [facility] [place] [address] 06/07/2023 3:40 PM EDT Office Visit Nutrition & Weight Management, [facility] [address] [place] [address] Joan Bright PA-C [address] [place] [address] 07/12/2023 3:10 PM EDT Nutrition Services Nutrition & Weight Management, [facility] [address] [place] [address] Kinsey Cage RDN [address] [place] [address] 03/07/2024 11:00 AM EST Telemedicine Hematology Oncology [facility] [address] [place] [address] Malignancy, Multidisciplinary Clinic High Risk Gi [address] [place] [address] Scheduled Procedures Name Priority Associated Diagnoses Date/Ti [...] and were consensually agreed upon. Care Teams Ms Access Database Developer Relationship Specialty Start Date End Date Steffi Zamudio MD [address] [place] [address] PCP - General Internal Medicine 05/04/11 documented as of this encounter
--- OUTSIDE RECORDS SUMMARY | 2023-07-06 23:18 | External Medical Summary | Summary of Care ---
Author Name Unknown Organization [facility] Address [address] [place] [address] Phone [phone] Care Team Providers Care Swiss Type Screw Machine Operator Name Role Phone Steffi Zamudio MD Primary Care Provider [phone] Reason for Visit * Reason Onset Date Comments Appointment 01/31/2023 Return appointme nt with the [facility] Encounter Details Date Type Department Care Team (Late st Contact Info) Description 01/31/2023 Telephone Genetics Hem[facility]c, [facility] [address] 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 Overview: Genetic Testing Completed 08/30/2022: Test Result: POSITIVE Gene: PMS2 Variant: Deletion (Exons 12-14) ClinVarID: None This result is consistent with Jackson syndrome Test Ordered: Multi-Cancer Panel at [facility] (84 genes) Genes Included: AIP, ALK, APC, PATTY, AXIN2, BAP1, BARD1, BLM, BMPR1A, BRCA1, BRCA2, BRIP1, CASR, CDC73, CDH1, CDK4, CDKN1B, CDKN1C, CDKN2A (p14ARF), CDKN2A (o45PFU6w), CEBPA, CHEK2, CTNNA1, DICER1, DIS3L2, EGFR, EPCAM, FH, FLCN, GATA2, GPC3, GREM1, HOXB13, HRAS, KIT, MAX, MEN1, MET, MITF, MLH1, MSH2, MSH3, MSH6, MUTYH, NBN, NF1, NF2, NTHL1, PALB2, PDGFRA, PHOX2B, PMS2, POLD1, POLE, POT1, TSTFH2T, PTCH1, PTEN, RAD50, RAD51C, RAD51D, RB1, RECQL4, RET, RUNX1, SDHA, SDHAF2, SDHB, SDHC, SDHD, SMAD4, SMARCA4, SMARCB1, SMARCE1, STK11, SUFU, TERC, TERT, NFDB163, TP53, TSC1, TSC2, VHL, WRN, WT1 Status [...] MFM consult Pt planning repeat c/s at [facility] 1. For patients [...] history of myomectomy. Scheduled for 06/25/15 at [facility] History of prior [...] Description 02/16/2023 1:00 PM EST [facility] [address] [place] [address] Emory Martin MD [address] [place] [address] 02/23/2023 2:00 PM EST Hospital Encounter ENDO OSSC, Endoscopy Room [facility] [address] [place] [phone] Ketan Hua MD [address] [place] [address] 02/23/2023 2:00 PM EST - 02/23/2023 3:00 PM EST Surgery ENDO OSSC, Endoscopy Room [facility] [address] [place] [phone] Ketan Hua MD [address] [place] [address] COLONOSCOPY FLEXIBLE PROXIMAL DIAGNOSTIC 03/06/2023 11:40 AM EST Telemedicine Nutrition & Weight Management, [facility] [address] [place] [address] Joan Bright, SHANDA [address] [place] [address] 04/09/2023 2:15 PM EST Office Visit Dermatology [facility] [address] [facility] [place] [address] Duane Perez MD [address] [facility] [place] [address] 04/26/2023 3:20 PM EST Office Visit General Internal Medicine [facility] [address] [facility] [place] [address] Steffi Zamudio MD [address] [facility] [place] [address] 06/07/2023 3:40 PM EDT Office Visit Nutrition & Weight Management, [facility] [address] [place] [address] Joan Bright, SHANDA [address] [place] [address] 07/12/2023 3:10 PM EDT Nutrition Services Nutrition & Weight Management, [facility] [address] [place] [address] Kinsey Cage RDN [address] [place] [address] Scheduled Procedures Name Priority Associated Diagnoses Date/Ti [...] and were consensually agreed upon. Care Teams Swiss Type Screw Machine Operator Relationship Specialty Start Date End Date Steffi Zamudio MD 200 [place] [address] PCP - General Internal Medicine 05/04/11 documented as of this encounter
--- OUTSIDE RECORDS SUMMARY | 2023-07-06 23:19 | External Medical Summary | Summary of Care ---
Author Name Unknown Organization [facility] Address [address] [place] [address] Phone [phone] Care Team Providers Care Organic Chemistry Professor Name Role Phone Steffi Zamudio MD Primary Care Provider [phone] Reason for Visit * Reason Onset Date Comments Test Results 01/22/2023 Encounter Details Date Type Department Care Team (Late st Contact Info) Description 01/22/2023 Telephone Genetics HemOnc, [facility] [address] [place] [address] Carey Awan, [place] [address] [place] [address] Test Results Allergies Active Allergy Reactions Criticality Noted Date Comments Adhesive Tape Rash 03/23/2021 Band-aides -rash Gluten Rash 07/12/2012 Celiac disease documented as of this encounter (statuses as of 01/23/2023) Medications Medication Sig Dispensed Refills Start Date End Date Status Hydroquinone 4 % External Cream Apply to brown spots on face 2x per day for 2 months 28.35 g 1 02/01/2021 Active Ventolin HFA 108 (90 Base) MCG/ACT Inhalation Aerosol SolutionIndications :COVID-19 virus infection Inhale by mouth 2 Puffs every 4 hours as needed for Wheezing. 18 g 1 05/30/2021 Active Vitamin D 50 MCG (1999 UT) [...] thighs 90 g 11 10/21/2021 Active Nystatin 166780 UNIT/GM External Powder (Nystop)Indications :Iesha albicans infection Apply topically to affected area 3 times a day. Apply to underneath breasts for 2-4 weeks 30 g 1 02/15/2022 Active metroNIDAZOLE 0.75 % External Lotion APPLY [...] A WEEK 9 mL 0 11/06/2022 Active Hospital, Clinic, or Other Facility Administered Medication Ordered Dose Route Frequency Start Date End Date Status vitamin b-12 (Cyanocobalamin) inj 1,000 mcgIndications:Status following gastric banding surgery for weight loss 1000 mcg IM [id number] 08/02/2021 06/04/2023 A ctive documented as of this encounter (statuses as of 01/23/2023) Active Problems Problem Noted Date Diagnosed Date [...] CDH1, CDK4, CDKN1B, CDKN1C, CDKN2A (p14ARF), CDKN2A (k66DZJ2j), CEBPA, CHEK2, CTNNA1, DICER1, DIS3L2, EGFR, EPCAM, FH, FLCN, GATA2, GPC3, GREM1, HOXB13, HRAS, KIT, MAX, MEN1, MET, MITF, MLH1, MSH2, MSH3, MSH6, MUTYH, NBN, NF1, NF2, NTHL1, PALB2, PDGFRA, PHOX2B, PMS2, POLD1, POLE, POT1, CKATP1O, PTCH1, PTEN, RAD50, RAD51C, RAD51D, RB1, RECQL4, RET, RUNX1, SDHA, SDHAF2, SDHB, SDHC, SDHD, SMAD4, SMARCA4, SMARCB1, SMARCE1, STK11, SUFU, TERC, TERT, DUJC713, TP53, TSC1, TSC2, VHL, WRN, WT1 Status [...] as of this encounter (statuses as of 01/23/2023) Resolved Problems Problem Noted Date Diagnosed Date [...] MFM consult Pt planning repeat c/s at [facility] 1. For patients with previous myomectomy involving [...] delivery at 36-37 weeks without amniocentesis per [employer]. Every [...] history of myomectomy. Scheduled for 06/25/15 at [facility] History of prior w ith short cervix, [...] as of this encounter (statuses as of 01/23/2023) Immunizations Name Administration Dates Next Due Pneumococcal [...] Telephone Encounter - Nava Tamez CHRA - 01/23/2023 1:10 PM EDT Parris Gay contacted the [facility] line and left a voicemail returning Carey Awan's, [facility], call. 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 I attempted to contact Parris Gay and left a voicemail informing her the testing was regarding her urinalysis and there was nothing of concern at the moment. LYNDA Almanza 01/23/2023 1:11 PM * Telephone Encounter - Carey Awan MS - 01/22/2023 8:30 AM EDT Urinalysis negative for blood. Carey Awan, MS 01/22/2023 8:31 AM documented in this encounter Plan of Treatment Upcoming Encounters Date Type Department Care Team (Late st Contact Info) Description 01/25/2023 3:20 PM EDT Office Visit Nutrition & Weight Management, [facility] [address] [place] [address] Joan Bright PA-C [address] [place] [address] 02/16/2023 1:00 PM EST Telemedicine Plastic Surgery, [place] [address] [place] [address] Emory Martin MD [address] [place], [place] [id number] 02/23/2023 2:00 PM EST Hospital Encounter ENDO OSSC, Endoscopy Room [facility] [address] [place] [phone] Ketan Hua MD [address] [place] [address] 02/23/2023 2:00 PM EST - 02/23/2023 3:00 PM EST Surgery ENDO OSSC, Endoscopy Room [facility] [address] [place] [address] Ketan Hua MD [address] [place] [address] COLONOSCOPY FLEXIBLE PROXIMAL DIAGNOSTIC 04/09/2023 2:15 PM EST Office Visit Dermatology [facility] [address] [facility] [place] [address] Duane Perez MD 200 [facility] [place] [address] 04/26/2023 3:20 PM EST Office Visit General Internal Medicine [facility] [address] [place], [place] [address] Steffi Zamudio MD 200 [facility] [place] [facility] [place] [address] 07/12/2023 3:10 PM EDT Nutrition Services Nutrition & Weight Management, [facility] [address] [place] [address] Kinsey Cage RDN [address] [place] [address] Scheduled Procedures Name Priority Associated Diagnoses Date/Ti [...] Diagnoses Diagnosis 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 Care Teams Organic Chemistry Professor Relationship Specialty Start Date End Date Steffi Zamudio MD [address] [place] [address] PCP - General Internal Medicine 05/04/11 documented as of this encounter
--- OUTSIDE RECORDS SUMMARY | 2023-07-06 23:19 | External Medical Summary | Summary of Care ---
Author Name Unknown Organization [facility] Address [address] [place] [address] Phone [phone] Care Team Providers Care Nail Making Machine Setter Name Role Phone Steffi Zamudio MD Primary Care Provider [phone] Reason for Visit * Reason Onset Date Comments Appointment 10/11/2022 [facility] Encounter Details Date Type Department Care Team Description 10/11/2022 Telephone Genetics HemOnc, [facility] [address] [place] [address] Malignancy, Multidisciplinary Clinic High Risk Gi [address] [place] [address] Appointment ([facility]) Allergies Active Allergy Reactions Severity Noted Date Comments Adhesive Tape Rash 03/23/2021 Band-aides -rash Gluten Rash 07/12/2012 Celiac disease documented as of this encounter (statuses as of 01/10/2023) Medications Medication Sig Dispensed Refills Start Date End Date Status Hydroquinone 4 % External Cream Apply to brown spots on face 2x per day for 2 months 28.35 g 1 1 Active Ventolin HFA 108 (90 Base) MCG/ACT Inhalation Aerosol SolutionIndication s:COVID-19 virus infection Inhale by mouth 2 Puffs every 4 hours as needed for Wheezing. 18 g 1 2 Active Vitamin D 50 MCG (1999 UT) Oral CapsuleIndications :Status following gastric banding surgery for weight loss Take by mouth 2,000 Units in the morning. 0 2 Active LORazepam 0.5 MG Oral Tablet (Ativan)Indication [...] MUSCLE SPASM 30 Tablet 2 2 Active Calcium Carb-Cholecalcifer ol 600-400 MG-UNIT Oral Tablet 1 Tablet . 0 2 Active Adapalene 0.1 % External Gel (Differin) Apply topically to affected area at bedtime . Apply to face and chest and thighs 90 g 11 2 Active Nystatin 180431 UNIT/GM External Powder (Nystop)Indication s:Iesha albicans infection Apply topically to affected area 3 times a day. Apply to underneath breasts for 2-4 weeks 30 g 1 2 Active metroNIDAZOLE 0.75 % External Lotion APPLY TOPICALLY TO FACE TWICE DAILY 59 mL 5 3 Active Zinc 50 MG Oral CapsuleIndications :Intestinal postoperative nonabsorption Take 1 Capsule by mouth in the morning. 0 Active Iron 325 (65 Fe) MG Oral TabletIndications: Status following gastric banding surgery for weight loss,Iron deficiency anemia secondary to inadequate dietary iron intake Take 1 tablet by mouth once daily 90 Tablet 2 3 Active Wegovy 2.4 MG/0.75ML Subcutaneous Solution Auto-injector (Semaglutide-Weigh t Management)Indicat ions:Obesity, Class I, BMI 30-34.9 Inject 2.4 mg under the skin once a week. 9 mL 0 3 11/07/19 23 Discontinued buPROPion HCl ER (XL) 300 MG Oral Tablet Extended Release 24 Hour (Wellbutrin XL)Indications:Shaheen or depressive disorder with single episode, in partial remission (HCC) TAKE 1 TABLET BY MOUTH IN THE MORNING 90 Tablet 0 3 10/20/19 23 Discontinued(Med ication/Dose Changed) Hospital, Clinic, or Other Facility Administered Medication Ordered Dose Route Frequency Start Date End Date Status vitamin b-12 (Cyanocobalamin) inj 1,000 mcgIndications:Status following gastric banding surgery for weight loss 1000 mcg IM [id number] 08/02/2021 06/04/2023 A ctive documented as of this encounter (statuses as of 01/10/2023) Active Problems Problem Noted Date 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 Overview: Genetic Testing Completed 08/30/2022: Test Result: POSITIVE Gene: PMS2 Variant: Deletion (Exons 12-14) ClinVarID: None This result is consistent with Jackson syndrome Test Ordered: Multi-Cancer Panel at [facility] (84 genes) Genes Included: AIP, ALK, APC, PATTY, AXIN2, BAP1, BARD1, BLM, BMPR1A, BRCA1, BRCA2, BRIP1, CASR, CDC73, CDH1, CDK4, CDKN1B, CDKN1C, CDKN2A (p14ARF), CDKN2A ([id number]), CEBPA, CHEK2, CTNNA1, DICER1, DIS3L2, EGFR, EPCAM, FH, FLCN, GATA2, GPC3, GREM1, HOXB13, HRAS, KIT, MAX, MEN1, MET, MITF, MLH1, MSH2, MSH3, MSH6, MUTYH, NBN, NF1, NF2, NTHL1, PALB2, PDGFRA, PHOX2B, PMS2, POLD1, POLE, POT1, DDBIR2I, PTCH1, PTEN, RAD50, RAD51C, RAD51D, RB1, RECQL4, RET, RUNX1, SDHA, SDHAF2, SDHB, SDHC, SDHD, SMAD4, SMARCA4, SMARCB1, SMARCE1, STK11, SUFU, TERC, TERT, ZEEU215, TP53, TSC1, TSC2, VHL, WRN, WT1 Status following gastric banding surgery for weight loss 06/02/2021 Bilateral ovarian cysts 05/13/2021 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 05/13/2021 Food insecurity 11/01/2020 Overview: Per [facility] Protocol Attention deficit disorder (ADD) without hyperactivity 08/28/2020 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, in partial remission 04/10/2019 Compulsive skin picking 01/15/2019 Mixed emotional features as adjustment r eaction 08/14/2016 Iron deficiency anemia secondary to inad equate dietary iron intake 07/07/2014 Melasma 10/16/2013 Hypertrophic scar 07/03/2012 Acne vulgaris 07/03/2012 Celiac sprue documented as of this encounter (statuses as of 01/10/2023) Resolved Problems Problem Noted Date Resolved Date Body mass index (BMI) of 40.0 to 44.9 in adult 0 07/04/2021 10/05/2022 Overview: Per Obesity protocol BMI 33.0-33.9,adult 06/13/2019 10/19/2022 Family history of cancer 10/06/2015 019 macrosomia 06/02/2015 07/01/2015 Overview: 05/25/15: @ 32w3d EFW 2598gm >95%; LAURI normal Advance directive discussed with patient 016 12/23/2018 Overview: No, Advance Directive brochure given to patient at prior appointment. IUGR (intrauterine growth re striction) in prior , 03/08/2015 07/01/2015 Overview: Growth sono q 4-6 weeks after 24 weeks Supervision of other high-risk 015 02/12/2017 with history of uterine myomectomy 08/08/2016 Obesity in , antepartum 02/22/2015 08/08/2016 BMI 31.0-31.9,adult 02/22/2015 12/23/2018 History of prior with IUGR 08/08/2016 History of uterine fibroid 02/22/201508/08 w/ hx of uterine myomectomy 12/16/2014 07/01/2015 [...] her previous history. Supervision of high risk in [facility] 12/16/2014 07/01/2015 Overview: Pt declined exam today. Will farrah pap, gonorrhea and chlamydia with next visit. Pt agreeable. -completed and normal Urine culture contaminated at [facility], repeat next visit 04/26/2015 Tdap Vaccine administered per clinic protocol. Pt given VIS(vaccine information sheet) Ruthann Parr RN Previous section 12/16/20142015 Overview: C/s x1, myomectomy x1 Neoplasm of uncertain behavior of skin 4 12/23/2018 Agrees to Participate in Research Study 01/04/20 13 12/23/2018 Cervical shortening, antepartum condition or com plication 12/10/2012 03/06/2013 Overview: 0.6cm on 11/08/12 S/p [...] could be arranged. Rh negative, antepartum 07/15/2012 07/01/19 16 Overview: Rhogam candidate Rhogam given 04/26/2015 Ruthann [...] 03/06/2013 Overview: Early glucola-normal Uterine fibroid in 07/12/201202/2013 Overview: 07/12/12: left-sided uterine myoma which measures 9.5 x 9.3 x 8.9 cm. MFM 10/11:MFM: Recommend serial growth ultrasounds every 4 weeks in the third trimester since fundal height measurements may not correlate well with size due to presence of uterine fibroids. Melanocytic nevi of trunk 07/03/20122018 Melanocytic nevi of upper extremity or shoulder 07/03/2012 12/23/2018 Perioral dermatitis 06/19/2012 12/23/2018 documented as of this encounter (statuses as of 01/10/2023) Immunizations Name Administration Dates Next Due Pneumococcal Polysaccharide PPV23 (Pneumovax) SEASONAL INFLUENZA, PF, 6 M & Above, IM , (FLULAVAL or FLUZONE) 02/26/2020,01/22/2019 Seasonal Influenza, Split, IIV3, With Preserve, Inj 01/06/2014,12/10/2012 TDAP (age 10 and older)(Boostrix) 04/26/2015, TDAP (age 11 and older)(Adacel) 05/04/2011 documented as of this encounter Social History Tobacco Use Types Packs/Day Years Used Date Smoking Tobacco: Never Smokeless Tobacco: Never Alcohol Use Standard Drinks/Week Comments No 0 (1 standard drink = 0.6 oz pur e alcohol) denies during Food Insecurity Answer Date Recorded Within the past 12 months, y ou worried that your food would run out before you got money to buy more. Sometimes true 2020 Within the past 12 months, t he food you bought just didn't last and you didn't have money to get more. Sometimes true Sex Assigned at Date Recorded Female 04/10/2019 4:[address] Job Start Date Occupation Industry Not on [...] encounter Miscellaneous Notes * Telephone Encounter - LYNDA Almanza - 01/10/2023 3:06 PM EDT Parris Gay returned my call and decided to reschedule her appointment with the [facility] to 01/19/2023. Appointment changed. I will call Parris a few days before the appointment to answer any questions regarding directions to the clinic. LYNDA Almanza 01/10/2023 3:07 PM * Telephone Encounter - LYNDA Almanza - 01/10/2023 12:06 PM EDT I attempted to contact Parris Gay and left a voicemail offering an earlier appointment with the [facility] for 01/19/2023. I asked for a call back if Parris would like that appointment, otherwise she will still have her currently scheduled appointment on 04/20/2023. LYNDA Almanza 01/10/2023 12:06 PM * Telephone Encounter - LYNDA Almanza - 10/27/2022 11:51 AM EDT I returned Parris Gay's voicemail regarding an appointment in the [facility]. I explained the clinic and Parris decided to schedule an appointment for April 20, 2023. She did not want to schedule same day scopes because she already has them scheduled for January or February of 2023. Parris also reported she was considering a hysterectomy. LYNDA Almanza 10/27/2022 11:53 AM * Telephone Encounter - LYNDA Almanza - 10/17/2022 2:33 PM EDT I attempted to return Parris Gay's voicemail call. I was unable to reach Parris and I left a voicemail regarding a recent referral to the [facility]. I asked that Parris return my call at the earliest convenience. LYNDA Almanza 10/17/2022 2:33 PM * Telephone Encounter - LYNDA Gordon - 10/11/2022 12:00 PM EDT I left a voicemail for Parris Gay regarding a recent referral to the [facility]. I asked that Parris return my call at the earliest convenience. I will follow up with a letter with more information. LYNDA Gordon 10/11/2022 12:00 PM documented in this encounter Plan of Treatment Upcoming Encounters Date Type Specialty Care Team Description 01/19/2023 Office Visit Internal Medicine Malignancy, Multidisciplinary Clinic High Risk Gi [address] [place] [address] 01/25/2023 Office Visit Gastroenterology Joan Bright PA-C [address] [place], [place] [address] 02/23/2023 Hospital Encounter Endoscopy Ketan Hua MD [address] [place], [place] [address] 02/23/2023 Surgery Endoscopy Ketan Hua MD [address] [place], [place] [address] COLONOSCOPY FLEXIBLE PROXIMAL DIAGNOSTIC 04/26/2023 Office Visit Internal Medicine Steffi Zamudio MD [address] [facility] [place] [address] 06/20/2023 Office Visit Dermatology KingSelina mae MD 07/12/2023 Nutrition Services Gastroenterology Kinsey Cage RDN [address] [place], [place] [address] Scheduled Procedures Name Priority Associated Diagnoses Date/Ti [...] and were consensually agreed upon. Care Teams Nail Making Machine Setter Relationship Specialty Start Date End Date Steffi Zamudio MD [address] [place] [address] [place] [address] PCP - General Internal Medicine 05/04/11 documented as of this encounter
--- OUTSIDE RECORDS SUMMARY | 2023-07-06 23:19 | External Medical Summary | Summary of Care ---
Author Name Unknown Organization [facility] Address [address] [place] [address] Phone [phone] Care Team Providers Care Bank Sales And Service Manager Name Role Phone Steffi Zamudio MD Primary Care Provider [phone] Reason for Visit * Reason Onset Date Comments Test Results 01/22/2023 Encounter Details Date Type Department Care Team (Late st Contact Info) Description 01/22/2023 Telephone Genetics HemOnc, [facility] [address] [place] [address] Carey Awan, MS [address] [place] [address] Test Results Allergies Active Allergy Reactions Criticality Noted Date Comments Adhesive Tape Rash 03/23/2021 Band-aides -rash Gluten Rash 07/12/2012 Celiac disease documented as of this encounter (statuses as of 01/26/2023) Medications Medication Sig Dispensed Refills Start Date [...] thighs 90 g 11 10/21/2021 Active Nystatin [id number] UNIT/GM External Powder (Nystop)Indications :Iesha albicans infection [...] surgery for weight loss 1000 mcg IM [id number] 08/02/2021 06/04/2023 A ctive documented as of this encounter (statuses as of 01/26/2023) Active Problems Problem Noted Date Diagnosed Date [...] CDH1, CDK4, CDKN1B, CDKN1C, CDKN2A (p14ARF), CDKN2A ([id number]), CEBPA, CHEK2, CTNNA1, DICER1, DIS3L2, EGFR, EPCAM, FH, FLCN, GATA2, GPC3, GREM1, HOXB13, HRAS, KIT, MAX, MEN1, MET, MITF, MLH1, MSH2, MSH3, MSH6, MUTYH, NBN, NF1, NF2, NTHL1, PALB2, PDGFRA, PHOX2B, PMS2, POLD1, POLE, POT1, [id number], PTCH1, PTEN, RAD50, RAD51C, RAD51D, RB1, RECQL4, RET, RUNX1, SDHA, SDHAF2, SDHB, SDHC, SDHD, SMAD4, SMARCA4, SMARCB1, SMARCE1, STK11, SUFU, TERC, TERT, [id number], TP53, TSC1, TSC2, VHL, WRN, WT1 Status [...] as of this encounter (statuses as of 01/26/2023) Resolved Problems Problem Noted Date Diagnosed Date [...] planning repeat c[place] [facility]. For patients with previous myomectomy involving [...] Scheduled for 06/25/[address] [facility] History of prior w ith short cervix, [...] as of this encounter (statuses as of 01/26/2023) Immunizations Name Administration Dates Next Due Pneumococcal [...] Telephone Encounter - Nava Tamez CHRA - 01/26/2023 10:18 AM EDT Parris Gay contacted the [facility] line and left a voicemail to verbalize understanding that our clinic contacted her regarding her urinalysis results. Patient reports she does not need a call back, unless there is anything additional or concerning on her urinalysis. LYNDA Almanza 01/26/2023 10:19 AM * Telephone Encounter - Nava Tamez CHRA - 01/23/2023 1:10 PM EDT Parris Gay contacted the [facility] line and left a voicemail returning Carey Awan's, [facility], call. 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 I attempted to contact Parris Gay and left a voicemail informing her the testing was regarding her urinalysis and there was nothing of concern at the moment. LYNDA Almanza 01/23/2023 1:11 PM * Telephone Encounter - Carey Awan, MS - 01/22/2023 8:30 AM EDT Urinalysis negative for blood. Carey Awan, 01/22/2023 8:31 AM documented in this encounter Plan of Treatment Upcoming Encounters Date Type Department Care Team (Late st Contact Info) Description 02/16/2023 1:00 PM EST [facility] [address] [place] [address] Emory Martin MD [address] [place] [address] 02/23/2023 2:00 PM EST Hospital Encounter ENDO [facility], Endoscopy Room [facility] [address] [place] [phone] Ketan Hua MD [address] [place] [address] 02/23/2023 2:00 PM EST - 02/23/2023 3:00 PM EST Surgery ENDO [facility], Endoscopy Room [facility] [address] [place] [phone] Ketan Hua MD [address] [place] [address] COLONOSCOPY FLEXIBLE PROXIMAL DIAGNOSTIC 03/06/2023 11:40 AM EST Telemedicine Nutrition & Weight Management, [facility] [address] [place] [address] Joan Bright PA-C [address] [place] [address] 04/09/2023 2:15 PM EST Office Visit Dermatology [facility] [address] [facility] [place] [address] Duane Perez MD [address] [facility] [place] [address] 04/26/2023 3:20 PM EST Office Visit General Internal Medicine [facility] [address] [facility] [place] [address] Steffi Zamudio MD [address] [facility] [place] [address] 06/07/2023 3:40 PM EDT Office Visit Nutrition & Weight Management, [facility] [address] [place] [address] Joan Bright PA-C [address] [place] [address] 07/12/2023 3:10 PM EDT Nutrition Services Nutrition & Weight Management, [facility] [address] [place] [address] Kinsey Cage RDN [address] [place] [address] Scheduled Procedures Name Priority Associated Diagnoses Date/Ti [...] and were consensually agreed upon. Care Teams Bank Sales And Service Manager Relationship Specialty Start Date End Date Steffi Zamudio MD [address] [place] [id number] PCP - General Internal Medicine 05/04/11 documented as of this encounter
--- OUTSIDE RECORDS SUMMARY | 2023-07-06 23:19 | External Medical Summary | Summary of Care ---
Author Name Unknown Organization [facility] Address [address] [place] [address] Phone [phone] Care Team Providers Care Cook Helper Dessert Name Role Phone Steffi Zamudio MD Primary Care Provider [phone] Reason for Visit * Reason Comments Weight Management Wegovy check Encounter Details Date Type Department Care Team (Late st Contact Info) Description 01/25/2023 3:20 PM EDT Office Visit Nutrition & Weight Management, [facility] [address] [place] [address] Joan Bright PA-C [address] [place] [address] Intestinal postoperative nonabsorption* Allergies Active Allergy Reactions Criticality Noted Date Comments Adhesive Tape Rash 03/23/2021 Band-aides -rash Gluten Rash 07/12/2012 Celiac disease documented as of this encounter (statuses as of 01/25/2023) Medications Medication Sig Dispensed Refills Start Date [...] thighs 90 g 11 10/21/2021 Active Nystatin 510713 UNIT/GM External Powder (Nystop)Indications :Iesha albicans infection [...] surgery for weight loss 1000 mcg IM [id number] 08/02/2021 06/04/2023 A ctive documented as of this encounter (statuses as of 01/25/2023) Active Problems Problem Noted Date Diagnosed Date [...] CDH1, CDK4, CDKN1B, CDKN1C, CDKN2A (p14ARF), CDKN2A (v67XWQ5d), CEBPA, CHEK2, CTNNA1, DICER1, DIS3L2, EGFR, EPCAM, FH, FLCN, GATA2, GPC3, GREM1, HOXB13, HRAS, KIT, MAX, MEN1, MET, MITF, MLH1, MSH2, MSH3, MSH6, MUTYH, NBN, NF1, NF2, NTHL1, PALB2, PDGFRA, PHOX2B, PMS2, POLD1, POLE, POT1, WDOXH4N, PTCH1, PTEN, RAD50, RAD51C, RAD51D, RB1, RECQL4, RET, RUNX1, SDHA, SDHAF2, SDHB, SDHC, SDHD, SMAD4, SMARCA4, SMARCB1, SMARCE1, STK11, SUFU, TERC, TERT, [id number], TP53, TSC1, TSC2, VHL, WRN, WT1 Status [...] as of this encounter (statuses as of 01/25/2023) Resolved Problems Problem Noted Date Diagnosed Date [...] MFM consult Pt planning repeat c[place]s [place] [facility]. For patients with previous myomectomy involving [...] delivery at 36-37 weeks without amniocentesis per [employer]. Every effort [...] history of myomectomy. Scheduled for 06/25/15 at [facility] History of prior w ith short cervix, [...] as of this encounter (statuses as of 01/25/2023) Immunizations Name Administration Dates Next Due Pneumococcal [...] Sign Reading Time Taken Comments Blood Pressure 102/64 01/25/2023 3:23 PM EDT Pulse 84 01/25/2023 3:23 PM EDT Temperature - - Respiratory Rate - - Oxygen Saturation - - Inhaled Oxygen Concentration - - Weight 72 kg (158 lb 12.8 oz) 01/25/2023 3:23 PM EDT Height - - Body Mass Index 24.87 12/13/2022 11:01 AM EDT documented in this [...] Progress Notes * Joan Bright PA-C - 01/25/2023 3:36 PM EDT [facility] Post Sleeve Gastrectomy Nursing Notes: Manda Manzo, CHIEF INVESTMENT OFFICER 01/25/23 1528 Sign at exiting of workspace Pt verified identity by last name and date. Chief Complaint Patient presents with Weight Management Wegovy check Referring physician: Steffi Zamudio MD Parris Gay [...] patient is s/p laprascopic Sleeve Gastrectomy in [place] 05/25/21 - Weight at the time of the surgery 273 lbs - Today's weight: 186 lbs - Total weight loss of -87 lbs since surgery - Patient's weight has -17 since last visit on 07/11/22 (203) Wt Readings from Last 6 Encounters: 01/25/23 72 kg (158 lb 12.8 oz) 01/19/23 73.2 kg (161 lb 4.8 oz) 01/10/23 73.8 kg (162 lb 11.2 oz) 12/15/22 75.8 kg (167 lb) 12/13/22 75.3 kg (166 lb) 10/19/22 80.7 kg (178 lb) 01/25/2023 -ordered calcium and chewable MVI from [...] 02/09/22 -RD for 8 month post op 11/09/21 -5 month follow up 07/25/21 -Patient seen today for a two month post op visit -Patient was scheduled for sleeve gastrectomy with [facility] on 06/21/21 but cancelled against our recommendations. -Patient had procedure in [place] on 05/25/21 -On 06/08, patient advised the [facility] team would follow pt for advise on nutritional care only and not advise related to her surgery procedure. Patient understood and agreed. Current recommended meal plan: Stage 4: Describes typical diet history/24 hr recall Breakfast: GF toast OR oatmeal OR yogurt Snack: skips Lunch: cheese and crackers Snack: skips Dinner: protein bowl from [employer] Snack: chicken Patient is not getting 60 g of protein Patient is not getting 64 oz of fluid Review of Systems: Review of Systems Gastrointestinal: Negative for abdominal pain, constipation, diarrhea and nausea. Psychosocial adjustment: Yes, having issues with stress management and relationships doing ok but noticing symptoms have been a little worse lately Alcohol: None Tobacco Use: No Drug Use: No Compliance with meal plan: no Taking supplements as ordered for each of the following: MVI-- trying to find one she can [...] Tablet Chewable Take by mouth. Calcium chew Ventolin HFA 108 (90 Base) MCG/ACT Inhalation Aerosol Solution Inhale by mouth 2 Puffs every 4 hours as needed for Wheezing. (Patient not taking: Reported on 01/25/2023) 18 g 1 Viactiv Calcium Immune 650-20-5.5 MG-MCG-MG Oral Tablet Chewable (Priqcfu-Rmgarsbpvgwcuig-Buit) Take by mouth 2 Tablets daily . (Patient not taking: Reported on 01/10/2023) Womens One Daily Oral Tablet Take by mouth 2 Gum Dosing Unit daily . (Patient not taking: Reported on 01/10/2023) Calcium Carb-Cholecalciferol 600-400 MG-UNIT Oral Tablet 1 Tablet . (Patient not taking: Reported on 01/25/2023) Nystatin 993603 UNIT/GM External Powder (Nystop) Apply topically to affected area 3 times a day. Apply to underneath breasts for 2-4 weeks (Patient not taking: Reported on 01/25/2023) 30 g 1 Current Facility-Administered Medications Medication Dose Route Frequency Provider Last Rate Last Admin vitamin b-12 (Cyanocobalamin) inj 1,000 mcg 1,000 mcg Intramuscular Q8 Weeks Steffi Zamudio MD 1,000 mcg at 01/10/23 1403 BP 102/64 | Pulse 84 | Wt 72 kg (158 lb 12.8 oz) | BMI 24.87 kg/m | BSA 1.84 m Physical Exam Vitals and nursing note [...] this visit: Intestinal postoperative nonabsorption Reviewed vitamin recommendations MVI-- trying to find one she can [...] and recheck labs in 3 months Plan CBC with WBC Differential Iron Screen, Including TIBC Ferritin Wegovy 2.4 MG/0.75ML Subcutaneous Solution Auto-injector (Semaglutide-Weight Management) Obesity, Class I, BMI 30-34.9 (Primary) Steady weight loss Concern with poor PO intake-- must get in min 60g protein and min 64 ounces fluids-- saw RD 2 weeksago -for right now continue wegovy at 2.4mg weekly-- will recheck 1-2 months and decrease wegovy dose if weight loss continues rapidly Celiac sprue Monitor iron labs stable Major depressive disorder with single episode, in partial remission (HCC) On wellbutrin 150mg XR-- could consider immediate release if having some break through symptoms Recommend avoiding extended release medications after bariatric surgery Status post laparoscopic sleeve gastrectomy As above The patient agreed to try the plan as discussed and return in three months. They were encouraged tocall or send a patient portal message in the meantime with any questions or concerns prior to theirnext visit. I spent a total of 38 minutes on the date of service in [...] [facility] Nutrition and Weight Management [facility] ([facility]) documented in this encounter Nursing Notes * Manda Manzo LPN - 01/25/2023 3:28 PM EDT Pt verified identity by last name and date. Chief Complaint Patient presents with Weight Management Wegovy check documented in this encounter Plan of Treatment Upcoming Encounters Date Type Department Care Team (Late st Contact Info) Description 02/16/2023 1:00 PM [facility] Plastic Surgery, [place] [address] [place] [address] Emory Martin MD [address] [place] [address] 02/23/2023 2:00 PM [facility] Hospital Encounter ENDO [facility], Endoscopy Room [facility] [address] [place] [phone] Ketan Hua MD [address] [place] [address] 02/23/2023 2:00 PM EST - 02/23/2023 3:00 PM EST Surgery ENDO [facility], Endoscopy Room [facility] [address] [place] [phone] Ketan Hua MD [address] [place] [address] COLONOSCOPY FLEXIBLE PROXIMAL DIAGNOSTIC 03/06/2023 11:40 AM EST Telemedicine Nutrition & Weight Management, [facility] [address] [place] [address] Joan Brigth PA-C [address] [place] [address] 04/09/2023 2:15 PM EST Office Visit Dermatology [facility] [address] [facility] [place] [address] Duane Perez MD [address] [facility] [place], [place] [address] 04/26/2023 3:20 PM EST Office Visit General Internal Medicine [facility] [address] [facility] [place], [place] [address] Steffi Zamudio MD [address] [facility] [place], [place] [address] 06/07/2023 3:40 PM EDT Office Visit Nutrition & Weight Management, [facility] [address] [place] [address] Joan Bright PA-C [address] [place] [address] 07/12/2023 3:10 PM EDT Nutrition Services Nutrition & Weight Management, [facility] [address] [place] [address] Kinsey Cage, RDN [address] [place] [address] Scheduled Orders Name Type Priority Associated Diagnoses Orde r Schedule CBC WITH WBC DIFFERENTIAL Lab Routine Intestinal postoperative nonabsorption Expected: 04/27/2023 (Approximate), Expires: 07/26/2023 IRON SCREEN, INCLUDING TIBC Lab Routine Intestinal postoperative nonabsorption Expected: 04/27/2023 (Approximate), Expires: 07/26/2023 FERRITIN Lab Routine Intestinal postoperative nonabsorption Expected: 04/27/2023 (Approximate), Expires: 07/26/2023 Scheduled Procedures Name Priority Associated Diagnoses Date/Ti [...] nonabsorption- Primary 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 Care Teams Cook Helper Dessert Relationship Specialty Start Date End Date Steffi Zamudio MD [address] [facility] [place], [place] [address] PCP - General Internal Medicine 05/04/11 documented as of this encounter"
--- OUTSIDE RECORDS SUMMARY | 2023-07-06 23:19 | External Medical Summary | Summary of Care ---
Author Name Unknown Organization [facility] Address [address] [place] [address] Phone [phone] Care Team Providers Care Office Inspector Name Role Phone Steffi Zamudio MD Primary Care Provider Encounter Details Date Type Department Care Team (Late st Contact Info) Description 01/10/2023 Telephone Plastic Surgery, [facility] [address] [place] [address] Services, Scheduling [address] [place] [address] Allergies Active Allergy Reactions Criticality Noted Date Comments Adhesive Tape Rash 03/23/2021 Band-aides -rash Gluten Rash 07/12/2012 Celiac disease documented as of this encounter (statuses as of 01/24/2023) Medications Medication Sig Dispensed Refills Start Date [...] thighs 90 g 11 10/21/2021 Active Nystatin 735257 UNIT/GM External Powder (Nystop)Indications :Iesha albicans infection [...] surgery for weight loss 1000 mcg IM [id number] 08/02/2021 06/04/2023 A ctive documented as of this encounter (statuses as of 01/24/2023) Active Problems Problem Noted Date Diagnosed Date 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 Overview: Genetic Testing Completed 08/30/2022: Test Result: POSITIVE Gene: PMS2 Variant: Deletion (Exons 12-14) ClinVarID: None This result is consistent with Jackson syndrome Test Ordered: Multi-Cancer Panel at [facility] (84 genes) Genes Included: AIP, ALK, APC, PATTY, AXIN2, BAP1, BARD1, BLM, BMPR1A, BRCA1, BRCA2, BRIP1, CASR, CDC73, CDH1, CDK4, CDKN1B, CDKN1C, CDKN2A (p14ARF), CDKN2A (s74NMN4b), CEBPA, CHEK2, CTNNA1, DICER1, DIS3L2, EGFR, EPCAM, FH, FLCN, GATA2, GPC3, GREM1, HOXB13, HRAS, KIT, MAX, MEN1, MET, MITF, MLH1, MSH2, MSH3, MSH6, MUTYH, NBN, NF1, NF2, NTHL1, PALB2, PDGFRA, PHOX2B, PMS2, POLD1, POLE, POT1, SKONB9O, PTCH1, PTEN, RAD50, RAD51C, RAD51D, RB1, RECQL4, RET, RUNX1, SDHA, SDHAF2, SDHB, SDHC, SDHD, SMAD4, SMARCA4, SMARCB1, SMARCE1, STK11, SUFU, TERC, TERT, [id number], TP53, TSC1, TSC2, VHL, WRN, WT1 Status [...] as of this encounter (statuses as of 01/24/2023) Resolved Problems Problem Noted Date Diagnosed Date [...] delivery at 36-37 weeks without amniocentesis per [employer]. Every effort [...] as of this encounter (statuses as of 01/24/2023) Immunizations Name Administration Dates Next Due Pneumococcal [...] encounter Miscellaneous Notes * Telephone Encounter - Kaitlyn Quiles OSA - 01/10/2023 2:49 PM EDT Discuss having abdominoplasty done in conjunction with hernia repair and hysterectomy. Please call pt back about having this done. She has been waiting to be scheduled documented in this encounter Plan of Treatment Upcoming Encounters Date Type Department Care Team (Late st Contact Info) Description 01/25/2023 3:20 PM EDT Office Visit Nutrition & Weight Management, [facility] [address] [place] [address] Joan Bright PA-C [address] [place] [address] 02/16/2023 1:00 PM EST Telemedicine Plastic Surgery, [address] [place] [address] Emory Martin MD [address] [facility] [place] [address] 02/23/2023 2:00 PM EST Hospital Encounter ENDO [facility], Endoscopy Room [facility] [address] [place] [phone] Ketan Hua MD [address] [place] [address] 02/23/2023 2:00 PM EST - 02/23/2023 3:00 PM EST Surgery ENDO [facility], Endoscopy Room [facility] [address] [place], [place] [address] Ketan Hua MD [address] [place] [address] COLONOSCOPY FLEXIBLE PROXIMAL DIAGNOSTIC 04/09/2023 2:15 PM EST Office Visit Dermatology [facility] [address] [place] [address] Duane Perez MD [address] [place] [address] 04/26/2023 3:20 PM EST Office Visit General Internal Medicine [facility] [address] [facility] [address] Steffi Zamudio MD [address] [place] [address] 07/12/2023 3:10 PM EDT Nutrition Services Nutrition & Weight Management, [facility] [address] [place] [address] Kinsey Cage RDN [address] [place] [address] Scheduled Procedures Name Priority Associated Diagnoses Date/Ti [...] were consensually agreed upon. Care Teams Office Inspector Relationship Specialty Start Date End Date Steffi Zamudio MD [address] [place] [address], [place] [address] PCP - General Internal Medicine 05/04/11 documented as of this encounter
--- OUTSIDE RECORDS SUMMARY | 2023-07-06 23:19 | External Medical Summary | Summary of Care ---
Author Name Unknown Organization [facility] Address [address] [place] [address] Phone [phone] Care Team Providers Care Roller Hand Name Role Phone Steffi Zamudio MD Primary Care Provider [phone] Reason for Visit * Reason Onset Date Comments Information 01/10/2023 Encounter Details Date Type Department Care Team Description 01/10/2023 Telephone Gastroenterology, [facility] [address] [place] [address] Ketan Hua MD [address] [place] [address] Information Allergies Active Allergy Reactions Severity Noted Date [...] thighs 90 g 11 10/21/2021 Active Nystatin 268698 UNIT/GM External Powder (Nystop)Indications :Iesha albicans infection [...] surgery for weight loss 1000 mcg IM [id number] 08/02/2021 06/04/2023 A ctive documented as of [...] CDH1, CDK4, CDKN1B, CDKN1C, CDKN2A (p14ARF), CDKN2A (h19FAH5z), CEBPA, CHEK2, CTNNA1, DICER1, DIS3L2, EGFR, EPCAM, FH, FLCN, GATA2, GPC3, GREM1, HOXB13, HRAS, KIT, MAX, MEN1, MET, MITF, MLH1, MSH2, MSH3, MSH6, MUTYH, NBN, NF1, NF2, NTHL1, PALB2, PDGFRA, PHOX2B, PMS2, POLD1, POLE, POT1, [id number], PTCH1, PTEN, RAD50, RAD51C, RAD51D, RB1, RECQL4, RET, RUNX1, SDHA, SDHAF2, SDHB, SDHC, SDHD, SMAD4, SMARCA4, SMARCB1, SMARCE1, STK11, SUFU, TERC, TERT, [id number], TP53, TSC1, TSC2, VHL, WRN, WT1 Status following gastric banding surgery for weight loss 06/02/2021 Bilateral ovarian cysts 05/13/2021 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 05/13/2021 Food insecurity 11/01/2020 Overview: Per [employer] [...] MFM consult [place] [facility] [place]. For patients with [...] history of myomectomy. [place] [facility] History of prior w [...] history. Supervision of high risk in [facility] 12/16/2014 07/01/2015 Overview: Pt declined exam today. [...] encounter Miscellaneous Notes * Telephone Encounter - Jil Meng RN - 01/10/2023 2:00 PM EDT Patient here to see Nwm. She asked about colonoscopy prep for her upcoming colonoscopy. Reports since she had gastric bypass she is worried she will not tolerate the prep well. I told her she could start prep earlier than indicated and drink it slower to see if this will help . Dr. Hua do yourecommend any specific prep for her or is the standard miralax prep okay. She asked that we check in with you regarding this. documented in this encounter Plan of Treatment Upcoming Encounters Date Type Specialty Care Team Description 01/19/2023 Office Visit Internal Medicine Malignancy, [facility] [address] [place] [address] 01/25/2023 Office Visit Gastroenterology Joan Bright PA-C [address] [place] [address] 02/23/2023 Hospital Encounter Endoscopy Ketan Hua MD [address] [place] [address] 02/23/2023 Surgery Endoscopy Ketan Hua MD [address] [place] [address] COLONOSCOPY FLEXIBLE PROXIMAL DIAGNOSTIC 04/26/2023 Office Visit Internal Medicine Steffi Zamudio MD [address] [place] [place] [address] 06/20/2023 Office Visit Dermatology Selina Gilbert MD 07/12/2023 Nutrition Services Gastroenterology Kinsey Cage RDN [address] [place], [place] [address] Scheduled Procedures Name Priority Associated Diagnoses Date/Ti ga COLONOSCOPY FLEXIBLE PROXIMA L DIAGNOSTIC PMS2-related Jackson [...] and were consensually agreed upon. Care Teams Roller Hand Relationship Specialty Start Date End Date Steffi Zamudio MD [address] [place] [address], [place] [address] PCP - General Internal Medicine 05/04/11 documented as of this encounter
--- OUTSIDE RECORDS SUMMARY | 2023-07-06 23:19 | External Medical Summary | Summary of Care ---
Author Name Unknown Organization [facility] Address [address] [place] [address] Phone [phone] Care Team Providers Care Retail Merchandising Manager Name Role Phone Steffi Zamudio MD Primary Care Provider [phone] Reason for Visit * Reason Onset Date Comments Appointment 10/11/2022 [facility] Encounter Details Date Type Department Care Team (Late st Contact Info) Description 10/11/2022 Telephone Genetics HemOnc, [facility] [address] [place] [address] Malignancy, Multidisciplinary Clinic High Risk Gi [address] [place] [address] Appointment ([facility]) Allergies Active Allergy Reactions Criticality Noted Date Comments Adhesive Tape Rash 03/23/2021 Band-aides -rash Gluten Rash 07/12/2012 Celiac disease documented as of this encounter (statuses as of 01/17/2023) Medications Medication Sig Dispensed Refills Start Date [...] thighs 90 g 11 2 Active Nystatin 187502 UNIT/GM External Powder (Nystop)Indication s:Iesha albicans infection [...] surgery for weight loss 1000 mcg IM [id number] 08/02/2021 06/04/2023 A ctive documented as of this encounter (statuses as of 01/17/2023) Active Problems Problem Noted Date Diagnosed Date [...] CDH1, CDK4, CDKN1B, CDKN1C, CDKN2A (p14ARF), CDKN2A (u65SPG6p), CEBPA, CHEK2, CTNNA1, DICER1, DIS3L2, EGFR, EPCAM, FH, FLCN, GATA2, GPC3, GREM1, HOXB13, HRAS, KIT, MAX, MEN1, MET, MITF, MLH1, MSH2, MSH3, MSH6, MUTYH, NBN, NF1, NF2, NTHL1, PALB2, PDGFRA, PHOX2B, PMS2, POLD1, POLE, POT1, EYESV0X, PTCH1, PTEN, RAD50, RAD51C, RAD51D, RB1, RECQL4, RET, RUNX1, SDHA, SDHAF2, SDHB, SDHC, SDHD, SMAD4, SMARCA4, SMARCB1, SMARCE1, STK11, SUFU, TERC, TERT, [id number], TP53, TSC1, TSC2, VHL, WRN, WT1 Status [...] as of this encounter (statuses as of 01/17/2023) Resolved Problems Problem Noted Date Diagnosed Date [...] as of this encounter (statuses as of 01/17/2023) Immunizations Name Administration Dates Next Due Pneumococcal [...] * Telephone Encounter - LYNDA Almanza - 01/17/2023 3:09 PM EDT I called Parris Gay to confirm an appointment with the [facility] on 01/19/2023. The patient confirmed the appointment. LYNDA Almanza 01/17/2023 3:09 PM * Telephone Encounter - LYNDA Almanza [...] AM EDT Office Visit General Internal Medicine, [facility] [address] [place] [address] Malignancy, Multidisciplinary Clinic High Risk Gi [address] [place] [address] 01/25/2023 3:20 PM EDT Office Visit Nutrition & Weight Management, [facility] [address] [place] [address] Joan Bright PA-C [address] [place] [address] 02/16/2023 1:00 PM EST Telemedicine Plastic Surgery, [place] [address] [facility] [address] Emory Martin MD [address] [place] [address] 02/23/2023 2:00 PM EST Hospital Encounter ENDO [facility], Endoscopy Room [facility] [address] [place] [phone] Ketan Hua MD [address] [place] [address] 02/23/2023 2:00 PM EST - 02/23/2023 3:00 PM EST Surgery ENDO [facility], Endoscopy Room [facility] [address] [place] [phone] Ketan Hua MD 132 [facility] [place] [address] COLONOSCOPY FLEXIBLE PROXIMAL DIAGNOSTIC 04/09/2023 2:15 PM EST Office Visit Dermatology [facility] [address] [place] [address] Duane Perez MD 200 [facility] [place] [address] 04/26/2023 3:20 PM EST Office Visit General Internal Medicine [facility] [address] [place] [address] Steffi Zamudio MD [address] [place] [address] 07/12/2023 3:10 PM EDT Nutrition Services Nutrition & Weight Management, [facility] [address] [place] [address] Kinsey Cage RDN [address] [facility] [place] [address] Scheduled Procedures Name Priority Associated Diagnoses Date/Ti [...] and were consensually agreed upon. Care Teams Retail Merchandising Manager Relationship Specialty Start Date End Date Steffi Zamudio MD [address] [place] [address] PCP - General Internal Medicine 05/04/11 documented as of this encounter
--- OUTSIDE RECORDS SUMMARY | 2023-07-06 23:19 | External Medical Summary ---
Author Name Unknown Address Unknown Organization K01:LABORATORY [facility] - [address] [facility] [place] [address] Laboratory Report Ordering Provider Test Date Status LYNSEY SAMS 01/19/2023 15:47:11 Final Collected today in [facility] héctor. Observation Date Value Abnormality Reference (Units) Status Color of Urine by Auto 01/19/2023 15:47:11 Yellow Colorless, Light Yellow, Yellow, Dark Yellow Final Clarity, Urine 01/19/2023 15:47:11 Slightly Cloudy Abnormal Clear Final Glucose [Mass/volume] in Urine by Automated test strip 01/19/2023 15:47:11 Negative Negative (mg/dL) Final Bilirubin.total [Presence] in Urine by Automated test strip 01/19/2023 15:47:11 Negative Negative Final Ketones [Mass/volume] in Urine by Automated test strip 01/19/2023 15:47:11 Trace Abnormal Negative (mg/dL) Final Specific gravity, Urine 01/19/2023 15:47:11 1.036 Above high normal 1.003-1.030 Final Hemoglobin [Presence] in Urine by Automated test strip 01/19/2023 15:47:11 Negative Negative Final pH, Urine 01/19/2023 15:47:11 6.5 5.0-7.5 (Units) Final Protein [Mass/volume] in Urine by Automated test strip 01/19/2023 15:47:11 30 Abnormal Negative (mg/dL) Final Urobilinogen [Mass/volume] in Urine by Automated test strip 01/19/2023 15:47:11 Normal Normal (mg/dL) Final Nitrite [Presence] in Urine by Automated test strip 01/19/2023 15:47:11 Negative Negative Final Leukocyte esterase [Presence] in Urine by Automated test strip 01/19/2023 15:47:11 Negative Negative Final RBC, Urine 01/19/2023 15:47:11 0-2 0-2 (/HPF) Final WBC, Urine 01/19/2023 15:47:11 0-2 0-2 (/HPF) Final Bacteria [#/area] in Urine sediment by Microscopy high power field 01/19/2023 15:47:11 151-200 Abnormal 0-25 (/HPF) Final Calcium oxalate crystals [#/area] in Urine sediment by Microscopy high power field 01/19/2023 15:47:11 20-29 Abnormal None (/HPF) Final Hyaline casts, Urine 01/19/2023 15:47:11 1-4 Abnormal None (/LPF) Final Performing Location LABORATORY [facility] - [facility] [address]. [facility] [address]
--- OUTSIDE RECORDS SUMMARY | 2023-07-06 23:19 | External Medical Summary | Summary of Care ---
Author Name Unknown Organization [facility] Address [address] [place] [address] Phone [phone] Care Team Providers Care Engineer Second Assistant Name Role Phone Steffi Zamudio MD Primary Care Provider [phone] Reason for Visit * Reason Onset Date Comments Test Results 01/22/2023 Encounter Details Date Type Department Care Team (Late st Contact Info) Description 01/22/2023 Telephone Genetics HemOnc, [facility] [address] [place] [address] Carey Awan, MS [address] [place] [address] Test Results Allergies Active Allergy [...] thighs 90 g 11 10/21/2021 Active Nystatin 335888 UNIT/GM External Powder (Nystop)Indications :Iesha albicans infection [...] surgery for weight loss 1000 mcg IM [id number] 08/02/2021 06/04/2023 A ctive documented as of [...] CDH1, CDK4, CDKN1B, CDKN1C, CDKN2A (p14ARF), CDKN2A (y23TUU5r), CEBPA, CHEK2, CTNNA1, DICER1, DIS3L2, EGFR, EPCAM, FH, FLCN, GATA2, GPC3, GREM1, HOXB13, HRAS, KIT, MAX, MEN1, MET, MITF, MLH1, MSH2, MSH3, MSH6, MUTYH, NBN, NF1, NF2, NTHL1, PALB2, PDGFRA, PHOX2B, PMS2, POLD1, POLE, POT1, KOYSO3Q, PTCH1, PTEN, RAD50, RAD51C, RAD51D, RB1, RECQL4, RET, RUNX1, SDHA, SDHAF2, SDHB, SDHC, SDHD, SMAD4, SMARCA4, SMARCB1, SMARCE1, STK11, SUFU, TERC, TERT, MMAI327, TP53, TSC1, TSC2, VHL, WRN, WT1 Status [...] [place] [facility] [place]. For patients with previous myomectomy involving [...] myomectomy. [place] [facility] History of prior w ith short cervix, [...] and left a voicemail returning Carey Awan[place] [facility] [place]. Parris believes Carey [...] EDT Office Visit Nutrition & Weight Management, [facility] [address] [place] [address] Joan Bright PA-C [address] [place] [address] 02/16/2023 1:00 PM EST Telemedicine Plastic Surgery, [facility] [address] [place] [address] Emory Martin MD [address] [place], [place] [id number] 02/23/2023 2:00 PM EST Hospital Encounter ENDO OSSC, Endoscopy Room [facility] [address] [place] [phone] Ketan Hua MD [address] [place] [address] 02/23/2023 2:00 PM EST - 02/23/2023 3:00 PM EST Surgery ENDO OSSC, Endoscopy Room [facility] [address] [place] [address] Ketan Hua MD [address] [place] [address] COLONOSCOPY FLEXIBLE PROXIMAL DIAGNOSTIC 04/09/2023 2:15 PM EST Office Visit Dermatology [facility] 200 [facility] [place] [address] Duane Perez MD 200 [facility] [place] [place] [address] 04/26/2023 3:20 PM EST Office Visit General Internal Medicine [facility] [address] [place], [place] [address] Steffi Zamudio MD 200 [facility] [place] [facility] [place] [address] 07/12/2023 3:10 PM EDT Nutrition Services Nutrition & Weight Management, [facility] [address] [place] [address] Kinsey Cage RDN [address] [place] [address] Scheduled Procedures Name Priority Associated Diagnoses Date/Ti [...] and were consensually agreed upon. Care Teams Engineer Second Assistant Relationship Specialty Start Date End Date Steffi Zamudio MD [address] [place] [address] PCP - General Internal Medicine 05/04/11 documented as of this encounter
--- OUTSIDE RECORDS SUMMARY | 2023-07-06 23:19 | External Medical Summary | Summary of Care ---
Author Name Unknown Organization [facility] Address [address] [place] [address] Phone [phone] Care Team Providers Care Workday Consultant Name Role Phone Steffi Zamudio MD Primary Care Provider [phone] Reason for Visit * Reason Onset Date Comments Information 01/10/2023 Encounter Details Date Type Department Care Team Description 01/10/2023 Telephone Gastroenterology, [facility] [address] [employer] [address] [place] [address] Ketan Hua MD [address] [place] [address] Information Allergies Active Allergy Reactions Severity Noted Date Comments Adhesive Tape Rash 03/23/2021 Band-aides -rash Gluten Rash 07/12/2012 Celiac disease documented as of this encounter (statuses as of 01/11/2023) Medications Medication Sig Dispensed Refills Start Date [...] thighs 90 g 11 10/21/2021 Active Nystatin 166675 UNIT/GM External Powder (Nystop)Indications :Iesha albicans infection [...] surgery for weight loss 1000 mcg IM [id number] 08/02/2021 06/04/2023 A ctive documented as of this encounter (statuses as of 01/11/2023) Active Problems Problem Noted Date 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 Overview: Genetic Testing Completed 08/30/2022: Test Result: POSITIVE Gene: PMS2 Variant: Deletion (Exons 12-14) ClinVarID: None This result is consistent with Jackson syndrome Test Ordered: Multi-Cancer Panel at [facility] (84 genes) Genes Included: AIP, ALK, APC, PATTY, AXIN2, BAP1, BARD1, BLM, BMPR1A, BRCA1, BRCA2, BRIP1, CASR, CDC73, CDH1, CDK4, CDKN1B, CDKN1C, CDKN2A (p14ARF), CDKN2A (l13GYE1u), CEBPA, CHEK2, CTNNA1, DICER1, DIS3L2, EGFR, EPCAM, FH, FLCN, GATA2, GPC3, GREM1, HOXB13, HRAS, KIT, MAX, MEN1, MET, MITF, MLH1, MSH2, MSH3, MSH6, MUTYH, NBN, NF1, NF2, NTHL1, PALB2, PDGFRA, PHOX2B, PMS2, POLD1, POLE, POT1, ZTYFT5K, PTCH1, PTEN, RAD50, RAD51C, RAD51D, RB1, RECQL4, RET, RUNX1, SDHA, SDHAF2, SDHB, SDHC, SDHD, SMAD4, SMARCA4, SMARCB1, SMARCE1, STK11, SUFU, TERC, TERT, [id number], TP53, TSC1, TSC2, VHL, WRN, WT1 Status [...] as of this encounter (statuses as of 01/11/2023) Resolved Problems Problem Noted Date Resolved Date [...] delivery at 36-37 weeks without amniocentesis per [employer]. Every effort [...] history. Supervision of high risk in first [facility] ge[facility]anny 12/16/2014 07/01/2015 Overview: Pt declined exam [...] as of this encounter (statuses as of 01/11/2023) Immunizations Name Administration Dates Next Due Pneumococcal [...] encounter Miscellaneous Notes * Telephone Encounter - Ketan Hua MD - 01/11/2023 3:02 PM EDT MiraLax prep is fine. But I agree with starting earlier and going slower with more time in between doses. Thank you, Don * Telephone Encounter - Jil Meng RN [...] Clinic High Risk Gi [address] [facility] [place] [address] 01/25/2023 Office Visit Gastroenterology Joan Bright PA-C [address] [place], [place] [address] 02/23/2023 Hospital Encounter Endoscopy Ketan Hua MD [address] [place] [address] 02/23/2023 Surgery Endoscopy Ketan Hua MD [address] [place] [address] COLONOSCOPY FLEXIBLE PROXIMAL DIAGNOSTIC 04/09/2023 Office Visit Dermatology Duane Perez MD 200 [facility] [place] [address] 04/26/2023 Office Visit Internal Medicine Steffi Zamudio MD 200 [place] [address] 07/12/2023 Nutrition Services Gastroenterology Kinsey Cage RDN [address] [place] [address] Scheduled Procedures Name Priority Associated Diagnoses Date/Ti [...] and were consensually agreed upon. Care Teams Workday Consultant Relationship Specialty Start Date End Date Steffi Zamudio MD [address] [place] [address], [place] [address] PCP - General Internal Medicine 05/04/11 documented as of this encounter
--- OUTSIDE RECORDS SUMMARY | 2023-07-06 23:19 | External Medical Summary | Summary of Care ---
Author Name Unknown Organization [facility] Address [address] [place] [address] Phone [phone] Care Team Providers Care Technical Solutions Director Name Role Phone Steffi Zamudio MD Primary Care Provider [phone] Reason for Visit * Reason Onset Date Comments Appointment 10/11/2022 Inherited Risk G I Clinic Encounter Details Date Type Department Care Team Description 10/11/2022 Telephone Genetics HemOnc, [facility] [address] [place] [address] Malignancy, Multidisciplinary Clinic High Risk Gi [address] [place] [address] Appointment (Inherited Risk GI Clinic) [...] thighs 90 g 11 2 Active Nystatin 095998 UNIT/GM External Powder (Nystop)Indication s:Iesha albicans infection [...] surgery for weight loss 1000 mcg IM [id number] 08/02/2021 06/04/2023 A ctive documented as of [...] CDH1, CDK4, CDKN1B, CDKN1C, CDKN2A (p14ARF), CDKN2A (h24ZZK9r), CEBPA, CHEK2, CTNNA1, DICER1, DIS3L2, EGFR, EPCAM, FH, FLCN, GATA2, GPC3, GREM1, HOXB13, HRAS, KIT, MAX, MEN1, MET, MITF, MLH1, MSH2, MSH3, MSH6, MUTYH, NBN, NF1, NF2, NTHL1, PALB2, PDGFRA, PHOX2B, PMS2, POLD1, POLE, POT1, ECSCT8E, PTCH1, PTEN, RAD50, RAD51C, RAD51D, RB1, RECQL4, RET, RUNX1, SDHA, SDHAF2, SDHB, SDHC, SDHD, SMAD4, SMARCA4, SMARCB1, SMARCE1, STK11, SUFU, TERC, TERT, HLNZ515, TP53, TSC1, TSC2, VHL, WRN, WT1 Status following gastric banding surgery for weight loss 06/02/2021 Bilateral ovarian cysts 05/13/2021 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 05/13/2021 Food insecurity 11/01/2020 Overview: Per [employer] [facility] Protocol Attention deficit disorder (ADD) [...] delivery at 36-37 weeks without amniocentesis per [employer]. Every effort [...] history. [facility] 12/16/2014 07/01/2015 Overview: Pt declined exam [...] 10/27/2022 11:53 AM * Telephone Encounter - LYDNA Almanza - 10/17/2022 2:33 PM EDT I [...] Multidisciplinary Clinic High Risk Gi [address] [place] [address] 01/25/2023 Office Visit Gastroenterology Joan Bright PA-C [address] [place], [place] [address] 02/23/2023 Hospital Encounter Endoscopy Ketan Hua MD [address] [place], [place] [address] 02/23/2023 Surgery Endoscopy Ketan Hua MD [address] [place], [place] [address] COLONOSCOPY FLEXIBLE PROXIMAL DIAGNOSTIC 04/26/2023 Office Visit Internal Medicine Steffi Zamudio MD 200 [place] [address] 06/20/2023 Office Visit Dermatology [employer] MD 07/12/2023 Nutrition Services Gastroenterology Kinsey Cage RDN [address] [place], [place] [address] Scheduled Procedures Name Priority Associated Diagnoses Date/Ti [...] and were consensually agreed upon. Care Teams Technical Solutions Director Relationship Specialty Start Date End Date Steffi Zamudio MD [address] [place] [address] [place] [address] PCP - General Internal Medicine 05/04/11 documented as of this encounter
--- OUTSIDE RECORDS SUMMARY | 2023-07-06 23:19 | External Medical Summary | Summary of Care ---
Author Name Unknown Organization [facility] Address [address] [place] [address] Phone [phone] Care Team Providers Care Dental Instrument Maker Name Role Phone Steffi Zamudio MD Primary Care Provider [phone] Reason for Visit * Reason Onset Date Comments Test Results 01/22/2023 Encounter Details Date Type Department Care Team (Late st Contact Info) Description 01/22/2023 Telephone Genetics HemOnc, [facility] [address] [place] [address] Carey Awan, MS [address] [place] [address] Test Results Allergies Active Allergy Reactions Criticality Noted Date Comments Adhesive Tape Rash 03/23/2021 Band-aides -rash Gluten Rash 07/12/2012 Celiac disease documented as of this encounter (statuses as of 01/22/2023) Medications Medication Sig Dispensed Refills Start Date [...] thighs 90 g 11 10/21/2021 Active Nystatin 209750 UNIT/GM External Powder (Nystop)Indications :Iseha albicans infection Apply topically to affected area [...] surgery for weight loss 1000 mcg IM [id number] 08/02/2021 06/04/2023 A ctive documented as of this encounter (statuses as of 01/22/2023) Active Problems Problem Noted Date Diagnosed Date 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 Overview: Genetic Testing Completed 08/30/2022: Test Result: POSITIVE Gene: PMS2 Variant: Deletion (Exons 12-14) ClinVarID: None This result is consistent with Jackson syndrome Test Ordered: Multi-Cancer Panel at [facility] (84 genes) Genes Included: AIP, ALK, APC, PATTY, AXIN2, BAP1, BARD1, BLM, BMPR1A, BRCA1, BRCA2, BRIP1, CASR, CDC73, CDH1, CDK4, CDKN1B, CDKN1C, CDKN2A (p14ARF), CDKN2A (x92ERP4y), CEBPA, CHEK2, CTNNA1, DICER1, DIS3L2, EGFR, EPCAM, FH, FLCN, GATA2, GPC3, GREM1, HOXB13, HRAS, KIT, MAX, MEN1, MET, MITF, MLH1, MSH2, MSH3, MSH6, MUTYH, NBN, NF1, NF2, NTHL1, PALB2, PDGFRA, PHOX2B, PMS2, POLD1, POLE, POT1, ZCFAM2M, PTCH1, PTEN, RAD50, RAD51C, RAD51D, RB1, RECQL4, RET, RUNX1, SDHA, SDHAF2, SDHB, SDHC, SDHD, SMAD4, SMARCA4, SMARCB1, SMARCE1, STK11, SUFU, TERC, TERT, DQWU349, TP53, TSC1, TSC2, VHL, WRN, WT1 Status [...] as of this encounter (statuses as of 01/22/2023) Resolved Problems Problem Noted Date Diagnosed Date [...] delivery at 36-37 weeks without amniocentesis per [employer]. Every effort [...] as of this encounter (statuses as of 01/22/2023) Immunizations Name Administration Dates Next Due Pneumococcal [...] encounter Miscellaneous Notes * Telephone Encounter - Carey Awan, - 01/22/2023 8:30 AM EDT Urinalysis negative for blood. Carey Awan MS 01/22/2023 8:31 AM documented in this encounter Plan of Treatment Upcoming Encounters Date Type Department Care Team (Late st Contact Info) Description 01/25/2023 3:20 PM EDT Office Visit [facility], [facility] [address] [facility] [place] [address] Joan Bright PA-C [address] [place] [address] 02/16/2023 1:00 PM EST Telemedicine Plastic Surgery, [place] [address] [place] [address] Emory Martin MD [address] [place] [address] 02/23/2023 2:00 PM EST Hospital Encounter ENDO O[facility], Endoscopy Room [facility] [address] [place] [address] Ketan Hua MD [address] [place] [address] 02/23/2023 2:00 PM EST - 02/23/2023 3:00 PM EST Surgery ENDO OSSC, Endoscopy Room [facility] [address] [place] [phone] Ketan Hua MD [address] [place] [address] COLONOSCOPY FLEXIBLE PROXIMAL DIAGNOSTIC 04/09/2023 2:15 PM EST Office Visit Dermatology [facility] 200 [facility] [place] [address] Duane Perez MD 200 [facility] [place] [address] 04/26/2023 3:20 PM EST Office Visit General Internal Medicine [facility] 200 [facility] [place] [address] Steffi Zamudio MD 200 [facility] [place] [address] 07/12/2023 3:10 PM EDT Nutrition Services Nutrition & [facility] Management, [facility] [address] [place] [address] Kinsey Cage RDN [address] [place] [address] Scheduled Procedures Name Priority Associated Diagnoses Date/Ti [...] and were consensually agreed upon. Care Teams Dental Instrument Maker Relationship Specialty Start Date End Date Steffi Zamudio MD 200 [place] [address] PCP - General Internal Medicine 05/04/11 documented as of this encounter
--- OUTSIDE RECORDS SUMMARY | 2023-07-06 23:19 | External Medical Summary | Summary of Care ---
Author Name Unknown Organization [facility] Address [address] [place] [address] Phone [phone] Care Team Providers Care Steamship Agent Name Role Phone Steffi Zamudio MD Primary Care Provider [phone] Reason for Visit * Reason Onset Date Comments Information 01/10/2023 Encounter Details Date Type Department Care Team Description 01/10/2023 Telephone Gastroenterology, [facility] [address] [place] [address] Ketan Hua MD [address] [place] [address] Information Allergies Active Allergy Reactions Severity Noted [...] thighs 90 g 11 10/21/2021 Active Nystatin 143982 UNIT/GM External Powder (Nystop)Indications :Iesha albicans infection [...] surgery for weight loss 1000 mcg IM [id number] 08/02/2021 06/04/2023 A ctive documented as of [...] CDH1, CDK4, CDKN1B, CDKN1C, CDKN2A (p14ARF), CDKN2A (u96MBP9a), CEBPA, CHEK2, CTNNA1, DICER1, DIS3L2, EGFR, EPCAM, FH, FLCN, GATA2, GPC3, GREM1, HOXB13, HRAS, KIT, MAX, MEN1, MET, MITF, MLH1, MSH2, MSH3, MSH6, MUTYH, NBN, NF1, NF2, NTHL1, PALB2, PDGFRA, PHOX2B, PMS2, POLD1, POLE, POT1, UVGBZ3W, PTCH1, PTEN, RAD50, RAD51C, RAD51D, RB1, RECQL4, RET, RUNX1, SDHA, SDHAF2, SDHB, SDHC, SDHD, SMAD4, SMARCA4, SMARCB1, SMARCE1, STK11, SUFU, TERC, TERT, VWNU167, TP53, TSC1, TSC2, VHL, WRN, WT1 Status [...] delivery at 36-37 weeks without amniocentesis per [employer]. Every effort [...] of high risk in first [facility]anny 12/16/2014 07/01/2015 Overview: Pt declined exam [...] Telephone Encounter - Jil Meng RN - 01/11/2023 3:39 PM EDT Called and relayed to patient. Scheduling can you send her a letter with prep instructions. She is aware to start sooner than it indicates. * Telephone Encounter - Ketan Hua MD [...] Clinic High Risk Gi [address] [facility], [place] [id number] 01/25/2023 Office Visit Gastroenterology Joan Bright PA-C [address] [place] [address] 02/23/2023 Hospital Encounter Endoscopy Ketan Hua MD [address] [place] [address] 02/23/2023 Surgery Endoscopy Ketan Hua MD [address] [place] [address] COLONOSCOPY FLEXIBLE PROXIMAL DIAGNOSTIC 04/09/2023 Office Visit Dermatology Duane Perez MD 200 [place] [address] 04/26/2023 Office Visit Internal Medicine Steffi Zamudio MD 200 [place] [address] 07/12/2023 Nutrition Services Gastroenterology Kinsey Cage RDN [address] [place] [address] Scheduled Procedures Name Priority Associated Diagnoses Date/Ti [...] and were consensually agreed upon. Care Teams Steamship Agent Relationship Specialty Start Date End Date Steffi Zamudio MD 200 [place] [address] PCP - General Internal Medicine 05/04/11 documented as of this encounter
--- OUTSIDE RECORDS SUMMARY | 2023-07-06 23:20 | External Medical Summary | Summary of Care ---
Author Name Unknown Organization [facility] Address [address] [place] [address] Phone [phone] Care Team Providers Care Glue Mounter Operator Name Role Phone Steffi Zamudio MD Primary Care Provider [phone] Reason for Visit * Reason Onset Date Comments Appointment 10/11/2022 Inherited Risk G I Clinic Encounter Details Date Type Department Care Team Description 10/11/2022 Telephone Genetics HemOnc, [facility] [address] 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 Overview: Genetic Testing Completed 08/30/2022: Test Result: POSITIVE Gene: PMS2 Variant: Deletion (Exons 12-14) ClinVarID: None This result is consistent with Jackson syndrome Test Ordered: Multi-Cancer Panel at [facility] (84 genes) Genes Included: AIP, ALK, APC, PATTY, AXIN2, BAP1, BARD1, BLM, BMPR1A, BRCA1, BRCA2, BRIP1, CASR, CDC73, CDH1, CDK4, CDKN1B, CDKN1C, CDKN2A (p14ARF), CDKN2A (j16LXR1z), CEBPA, CHEK2, CTNNA1, DICER1, DIS3L2, EGFR, EPCAM, FH, FLCN, GATA2, GPC3, GREM1, HOXB13, HRAS, KIT, MAX, MEN1, MET, MITF, MLH1, MSH2, MSH3, MSH6, MUTYH, NBN, NF1, NF2, NTHL1, PALB2, PDGFRA, PHOX2B, PMS2, POLD1, POLE, POT1, AOUGU4G, PTCH1, PTEN, RAD50, RAD51C, RAD51D, RB1, RECQL4, RET, RUNX1, SDHA, SDHAF2, SDHB, SDHC, SDHD, SMAD4, SMARCA4, SMARCB1, SMARCE1, STK11, SUFU, TERC, TERT, PRHT558, TP53, TSC1, TSC2, VHL, WRN, WT1 Status following gastric banding surgery for weight loss 06/02/2021 Bilateral ovarian cysts 05/13/2021 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 05/13/2021 Food insecurity 11/01/2020 Overview: Per [email or web address] [facility] Protocol Attention deficit disorder (ADD) [...] delivery at 36-37 weeks without amniocentesis per [employer]. Every effort [...] history. Supervision of high risk in first [facility] 12/16/2014 07/01/2015 Overview: Pt declined exam today. [...] Encounters Date Type Specialty Care Team Description 01/10/2023 Nutrition Services Gastroenterology Kinsey Cage RDN [address] [place] [address] 01/11/2023 Immunization/Inj ection Yeimi Connors, Nurse Cyrus Vargas [address] [place] [address] 01/25/2023 Office Visit Gastroenterology Joan Bright PA-C [address] [place] [address] 02/23/2023 Hospital Encounter Endoscopy Ketan Hua MD [address] [place], [place] [address] 02/23/2023 Surgery Endoscopy Ketan Hua MD [address] [place], [place] [address] COLONOSCOPY FLEXIBLE PROXIMAL DIAGNOSTIC 04/20/2023 Office Visit Internal Medicine Malignancy, Multidisciplinary Clinic High Risk Gi [address] [facility] [place] [address] 04/26/2023 Office Visit Internal Medicine Steffi Zamudio MD 200 [place] [address] 06/20/2023 Office Visit Dermatology Selina Gilbert MD Scheduled Procedures Name Priority Associated Diagnoses Date/Ti [...] and were consensually agreed upon. Care Teams Glue Mounter Operator Relationship Specialty Start Date End Date Steffi Zamudio MD [address] [place] [address], [place] [address] PCP - General Internal Medicine 05/04/11 documented as of this encounter
--- OUTSIDE RECORDS SUMMARY | 2023-07-06 23:20 | External Medical Summary | Summary of Care ---
Author Name Unknown Organization [facility] Address [address] [place] [address] Phone [phone] Care Team Providers Care Merchandise Appraiser Name Role Phone Steffi Zamudio MD Primary Care Provider [phone] Reason for Visit * Reason Comments Weight Management Sleeve Encounter Details Date Type Department Care Team Description 01/10/2023 Nutrition Services Nutrition & Weight Management, [facility] [address] [facility] [address] Kinsey Cage RDN [address] [facility] [address] Overweight (BMI 25.0-29.9)*; Intestinal postoperative nonabsorption; Status post laparoscopic sleeve gastrectomy Allergies Active Allergy Reactions Severity Noted Date [...] thighs 90 g 11 10/21/2021 Active Nystatin 147375 UNIT/GM External Powder (Nystop)Indications :Iesha albicans infection [...] surgery for weight loss 1000 mcg IM [id number] 08/02/2021 06/04/2023 A ctive documented as of this encounter (statuses as of 01/10/2023) Active Problems Problem Noted Date 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 Overview: Genetic Testing Completed 08/30/2022: Test Result: POSITIVE Gene: PMS2 Variant: Deletion (Exons 12-14) ClinVarID: None This result is consistent with Jackson syndrome Test Ordered: Multi-Cancer Panel at [facility] (84 genes) Genes Included: AIP, ALK, APC, PATTY, AXIN2, BAP1, BARD1, BLM, BMPR1A, BRCA1, BRCA2, BRIP1, CASR, CDC73, CDH1, CDK4, CDKN1B, CDKN1C, CDKN2A (p14ARF), CDKN2A ([id number]), CEBPA, CHEK2, CTNNA1, DICER1, DIS3L2, EGFR, EPCAM, FH, FLCN, GATA2, GPC3, GREM1, HOXB13, HRAS, KIT, MAX, MEN1, MET, MITF, MLH1, MSH2, MSH3, MSH6, MUTYH, NBN, NF1, NF2, NTHL1, PALB2, PDGFRA, PHOX2B, PMS2, POLD1, POLE, POT1, YLSYM1I, PTCH1, PTEN, RAD50, RAD51C, RAD51D, RB1, RECQL4, RET, RUNX1, SDHA, SDHAF2, SDHB, SDHC, SDHD, SMAD4, SMARCA4, SMARCB1, SMARCE1, STK11, SUFU, TERC, TERT, CCAH707, TP53, TSC1, TSC2, VHL, WRN, WT1 Status [...] delivery at 36-37 weeks without amniocentesis per [employer]. Every effort [...] previous history. Supervision of high risk in [facility] 12/16/2014 07/01/2015 Overview: Pt declined exam today. [...] Sign Reading Time Taken Comments Blood Pressure 122/70 01/10/2023 1:16 PM EDT Pulse 80 01/10/2023 1:16 PM EDT Temperature - - Respiratory Rate - - Oxygen Saturation - - Inhaled Oxygen Concentration - - Weight 73.8 kg (162 lb 11.2 oz) 01/10/2023 1:16 PM EDT Height - - Body Mass Index 25.48 12/13/2022 11:01 AM EDT documented in this [...] No 07/07/2014 documented as of this encounter Patient Instructions * Patient Instructions* Kinsey Cage RDN - 01/10/2023 1:56 PM EDT Plan: 1. Continue Stage 4 diet. -Use tuna packets, beans, chicken, eggs, yogurt to boost protein -Drink 4 bottles of water a day 2. Continue supplementation as prescribed --Review handouts provided for dosing requirements 3. Continue Vitamin B-12 injections every three months. 4. Increase exercise - work for regular routine of 30-60 min most days per week. documented in this encounter Progress Notes * Kinsey Cage RDN - 01/10/2023 1:10 PM EDT Nutrition & Weight Management / Bariatric Surgery Nutrition Post-Operative Follow-up Name: Parris Gay Location: NUTRITION & WEIGHT MANAGEMENT, [facility] Date: 01/10/2023 Time: 12:23 PM Patient was identified at visit by name and date. Patient was seen [id number] in the clinic. Surgery: S/P surgery Lap Sleeve done in [place] 05/25/21 01/10/23 -routine dietary return -Wegovy 2.4 mg -+ Lunch Syndrome -Feeling very tired 09/12/22 -on Wegovy 1.0mg -tolerating well -meals are small 07/11/22 -on Wegovy 0.5mg -tolerating well 05/25/22 -11 m post op -->making better, small changes -->still drinking coke but switched to the smaller cans (7.5 oz) -->only drinking ~10 oz of water, if that each day: use crystal light or other flavor enhancers -->Allowing herself some kacy and not cooking. Doesn't like it! Spending more money of pre-madeprotein bowls from [employer] but is helping with her protein and food intake. Letting her daughter help make dinner for her and her brother. We talked about Parris not staying up so late. She has been going to bed around midnight most nights and not 3 am. She wants to continue to improve on this. 02/09/23 -8 m post op 07/25/21 -Patient seen today for a two month post op visit -Patient was scheduled for sleeve gastrectomy with [facility] on 06/21/21 but cancelled against our recommendations. -Patient had procedure in [place] on 05/25/21 -On 06/08, patient advised the [facility] team would follow pt for advise on nutritional care only and not advise related to her surgery procedure. Patient understood and agreed. Presurgery weight: 273 lbs Weight today: 162 lbs Weight at last visit: 186 lbs Date: 09/12/22 Weight Changes from previous visit: -24 lbs Total weight loss since surgery: -111 lbs Lowest weight since surgery: 162 lbs Date: today Wt Readings from Last 10 Encounters: 01/10/23 73.8 kg (162 lb 11.2 oz) 12/15/22 75.8 kg (167 lb) 12/13/22 75.3 kg (166 lb) 10/19/22 80.7 kg (178 lb) 09/13/22 83.9 kg (185 lb) 09/12/22 84.4 kg (186 lb 1.6 oz) 07/11/22 92.4 kg (203 lb 12.8 oz) 05/25/22 96.7 kg (213 lb 1.6 oz) 05/25/22 96.7 kg (213 lb 1.6 oz) 04/13/22 96.7 kg (213 lb 1.6 oz) Describes typical diet history/24 hr recall Reporting she "barely eats and drinks" Protein intake (goal at least 60 gm/day): Not getting 60 g Fluid intake (goal 64 oz/day): Not getting 64 oz Not compliant with supplements --We talked about restring BA MVI: looked at the MVI chewy bite on their website, looked at the cost differences using the [employer] code -Mutiple vitamin handouts provided: BA specific, MVI Ca PES: Impaired nutrient utilization related to bariatric surgery as evidenced by need for specialized diet guidelines and vitamin supplementation. Assessed needs per bariatric surgery protocol: Not compliant Plan: 1. Continue Stage 4 diet. -Use tuna packets, beans, chicken, eggs, yogurt to boost protein 2. Continue supplementation as prescribed 3. Continue Vitamin B-12 injections every three months. 4. Increase exercise - work for regular routine of 30-60 min most days per week. Time spent: 35 Kinsey Cage RDN documented in this encounter Nursing Notes * Manda Manzo LPN - 01/10/2023 1:19 PM EDT Pt verified identity by last name and date. Chief Complaint Patient presents with Weight Management Sleeve documented in this encounter Plan of Treatment Upcoming Encounters Date Type Specialty Care Team Description 01/25/2023 Office Visit Gastroenterology Joan Bright PA-C [address] [place] [address] 02/23/2023 Hospital Encounter Endoscopy Ketan Hua MD [address] [place] [address] 02/23/2023 Surgery Endoscopy Ketan Hua MD [address] [place] [address] COLONOSCOPY FLEXIBLE PROXIMAL DIAGNOSTIC 04/20/2023 Office Visit Internal Medicine Malignancy, Multidisciplinary Clinic High Risk Gi [address] [place] [address] 04/26/2023 Office Visit Internal Medicine Steffi Zamudio MD [address] [place] [address] 06/20/2023 Office Visit Dermatology Selina Gilbert MD 07/12/2023 Nutrition Services Gastroenterology Kinsey Cage RDN [address] [place] [address] Scheduled Procedures Name Priority Associated Diagnoses Date/Ti [...] as of this encounter Visit Diagnoses Diagnosis Overweight (BMI 25.0-29.9)- Primary Overweight Intestinal postoperative nonabsorption Other and unspecified postsurgical nonabsorption 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 Care Teams Merchandise Appraiser Relationship Specialty Start Date End Date Steffi Zamudio MD [address] [place] [address], [place] [address] PCP - General Internal Medicine 05/04/11 documented as of this encounter
[2023-07-07] MEDS: CHECK SCOPOLAMINE PATCH PLACEMENT SCH
[2023-07-07] MEDS: DOCUSATE SODIUM 100 MG CAP PO SCH (04:25)
[2023-07-07 06:40] LABS: Basophils # (auto) 0.04 K/uL (0.00-0.20); Basophils % (auto) 0.4 %; Eosinophils # (auto) 0.18 K/uL (0.00-0.50); Hematocrit (blood only) 28.2 % (37.0-47.0); Hemoglobin 9.8 g/dl (12.0-16.0); Immature Granulocytes # (auto) 0.04 K/uL (0.01-0.20); Immature Granulocytes % (auto) 0.4 %; Lymphocytes # (auto) 1.96 K/uL (1.20-3.40); Lymphocytes % (auto) 21.5 %; Mean Corpuscular Hemoglobin 30.2 pg (25.0-34.0); Mean Corpuscular Hgb Conc 34.8 g/dL (32.0-36.0); Mean Corpuscular Volume 86.8 fL (80.0-100.0); Mean Platelet Volume 9.5 fL (9.4-12.4); Monocytes # (auto) 0.76 K/uL (0.11-0.59); Monocytes % (auto) 8.3 %; Neutrophils # (auto) 6.13 K/uL (1.40-6.50); Neutrophils % (auto) 67.4 %; Platelet Count 202 K/uL (130-400); RDW Coefficient of Variation 12.4 % (11.5-14.5); RDW Standard Deviation 39.5 fL (36.4-46.3); Red Blood Count 3.25 M/uL (4.20-5.40); White Blood Count 9.11 K/ul (4.8-10.8)
[2023-07-07 06:57] LABS: BUN Creatinine Ratio 16.4 (10-20); Calcium 8.5 mg/dl (8.6-10.3); Est GFR (African American) 129.6 ml/min; Est GFR (Non-African American) 111.8 ml/min
--- NOTE | 2023-07-07 08:30 | Gynecologic Progress Note ---
Date of Service July 07, 2023 Assessment & Plan (1) Jackson syndrome: Plan: PMS2-related Jackson syndrome (HNPCC4) Management: GI cancers: 1. Colonoscopy every 1-3 years beginning at age 30-35 (or 2-5 yrs prior to the earliest colon cancer in family) 2. Consider upper GI endoscopy (with visualization of the duodenum) beginning at age 30-40. a. Include random biopsy for H. Pylori testing on baseline EGD. b. Repeat every 2-4 years. 3. If family history of pancreatic cancer, consider MRI/MRCP and /or EUS at age 50 (or 10 years prior to the earliest pancreatic cancer in family). SPRING INTERN Cancers: 1. Consider endometrial biopsy at 30-35 and repeat every 1-2 years. 2. Consider hysterectomy after family planning is complete. 3. Consider bilateral salpingo-oophorectomy or transvaginal ultrasound and serum CA-125. 4. Consider hormonal contraceptives. Urothelial Cancers: Consider annual urinalysis beginning at age 30-35. Skin Cancer: Consider full-body skin exam with wind operations supervisor every 1-2 years. Brain Cancer: Annual physical and neurological exam. Prostate Cancer: Consider annual PSA with ROSAURA beginning at 40; base individual risks on gene and family history of prostate cancer. (2) Fibroids: Plan: 42 yo with an enlarged fibroid uterus and right ovarian cyst. Recent genetic studies are positive for jackson syndrome. Intramural leiomyoma of uterus: Patient is now willing to have surgery in [place]. Normal CA 125. Normal endometrial biopsy. Plan s/p Diagnostic laparoscopy, pelvic washings, MARILU, RA TLH/BS, abdominal ventral hernia repair with mesh, and cystoscopy on 07/06/2023. POD #1. Recommend Patient ambulate. Discharge home later today. Medications previously sent to Patient's pharmacy. Admission and Anticipated Discharge Date Admission Date: July 06, 2023 Subjective Patient seen and evaluated. s/p Diagnostic laparoscopy, pelvic washings, MARILU, RA TLH/BS, abdominal ventral hernia repair with mesh, and cystoscopy on 07/06/2023. Patient admitted secondary to pain. Patient reports pain is still 8 out of 10. Patient was able to ambulate to the bathroom. Nausea after surgery. Denies vomiting, fevers, chills, SOB or CP. Some burning with first urination (lao catheter removed after surgery). No bowel movements. Review of Systems Respiratory: as per Subjective / HPI Cardiovascular: as per Subjective / HPI Gastrointestinal: as per Subjective / HPI Physical Exam Constitutional: WD/WN, vitals as above Respiratory: normal respiratory effort, lungs clear to auscultation Cardiovascular: RRR, no murmur, no edema Gastrointestinal (Abdomen): Normal bowel sounds. Appropriately tender to palpation. Incisions: C/D/I. No erythema or edema. CHAYA drain in place Results & Data Vital Signs (Past 12 Hours) Vital Signs Temp Pulse Resp BP Pulse Ox O2 Del Method 07/07/23 04:15 36.7 C 86 14 90/54 L 97 Room Air 07/06/23 23:17 36.9 C 89 16 94/58 L 98 Room Air
[2023-07-07] MEDS: SIMETHICONE 80 MG CHEW PO ONE (08:41)
[2023-07-07] MEDS: SIMETHICONE 80 MG CHEW PO PRN (08:42)
--- NOTE | 2023-07-07 08:53 | Discharge Summary ---
Date of Service July 07, 2023 Admission HPI Per Admitting Provider 42 year old [id number] contraception presents with uterine fibroids. At an annual exam with PCP an enlarged uterus was noted. Subsequent imaging confirmed fibroids. Patient was originally seen in Apr 2018 and treated with depo lupron. Patient used depo lupron for approximately 1 year and then discontinued. Patient seen in Apr 2020. Patient was asymptomatic and plan was to repeat imaging to re-evaluate uterus and previously reported bilateral ovarian cysts. TVUS in Aug 2020 revealed 1. Uterine myoma appears stable 2. Probable right endometrioma for which follow-up is recommended in 1 year.3. 3.9 cm simple right ovarian cyst. If asymptomatic, follow-up is not needed. 4. Left ovarian cyst is not demonstrated. Patient desired to follow up in 1 year (Aug 2021). Her lastest TVUS in July 2022 revealed 1. Interval increased in size of uterine fibroid.2. Two adjacent right ovarian hemorrhagic cysts are also increased in size since prior MR. Evaluate on follow-up examination. Since discontinuation of depo lupron, menses last 7-10 days with moderate flow. Patient states menses are tolerable. Denies pelvic pain. Denies abnormal vaginal discharge. Denies urinary or bowel symptoms. Patient had genetic testing in Nov 2022 due to h/o Mother passing away from an unknown cancer. Patient is positive for PMS2-related Jackson syndrome. Patient desired surgery at [facility]. Referred to Dr. Joe. Patient states appointm ent was cancelled and then rescheduled. She desires to now proceed with surgery in the [place] area. Patient will have hernia repaired by General Surgery. Discharge Data Procedures Performed Operation Date: 07/06/23 10:05 Actual Procedures p Robotic Assisted Total Laparoscopic Hysterectomy, Bilateral Salpingo- Oophorectomy, Mini-Laparotomy and Cystoscopy, Pelvic Washings(Bilateral) - Tamiko Baker MD s Open Incisional Hernia Repair, Lysis of adhesions(Not Applicable) - Ash Kendrick MD s Cystoscopy(Not Applicable) - Tamiko Baker MD Hospital Course (1) Jackson syndrome: PMS2-related Jackson syndrome (HNPCC4) Management: GI cancers: 1. Colonoscopy every 1-3 years beginning at age 30-35 (or 2-5 yrs prior to the earliest colon cancer in family) 2. Consider upper GI endoscopy (with visualization of the duodenum) beginning at age 30-40. a. Include random biopsy for H. Pylori testing on baseline EGD. b. Repeat every 2-4 years. 3. If family history of pancreatic cancer, consider MRI/MRCP and /or EUS at age 50 (or 10 years prior to the earliest pancreatic cancer in family). TRAVEL JOURNALIST Cancers: 1. Consider endometrial biopsy at 30-35 and repeat every 1-2 years. 2. Consider hysterectomy after family planning is complete. 3. Consider bilateral salpingo-oophorectomy or transvaginal ultrasound and serum CA-125. 4. Consider hormonal contraceptives. Urothelial Cancers: Consider annual urinalysis beginning at age 30-35. Skin Cancer: Consider full-body skin exam with char filter tank tender every 1-2 years. Brain Cancer: Annual physical and neurological exam. Prostate Cancer: Consider annual PSA with ROSAURA beginning at 40; base individual risks on gene and family history of prostate cancer. (2) Fibroids: 42 yo with an enlarged fibroid uterus and right ovarian cyst. Recent genetic studies are positive for jackson syndrome. Intramural leiomyoma of uterus: Patient is now willing to have surgery in [place]. Normal CA 125. Normal endometrial biopsy. Plan s/p Diagnostic laparoscopy, pelvic washings, MARILU, RA TLH/BS, abdominal ventral hernia repair with mesh, and cystoscopy on 07/06/2023. POD #1. Recommend Patient ambulate. Discharge home later today. Medications previously sent to Patient's pharmacy.
[2023-07-07] MEDS: cephALEXin 500 MG CAP PO SCH (10:52)
--- OUTSIDE RECORDS SUMMARY | 2023-07-07 15:55 | External Medical Summary | Summary of Care ---
Author Name Unknown Organization [facility] Address [address] [place] [address] Phone [phone] Care Team Providers Care Licensed Direct Entry Midwife Name Role Phone Steffi Zamudio MD Primary Care Provider [phone] Encounter Details Date Type Department Care Team (Late st Contact Info) Description 07/06/2023 Result Scan Unspecified Department <No scans attached> Allergies Active Allergy Reactions Criticality Noted Date Comments Adhesive Tape Rash 03/23/2021 Band-aides -rash Gluten Rash 07/12/2012 Celiac disease documented as of this encounter (statuses as of 07/06/2023) Medications Medication Sig Dispensed Refills Start Date [...] 1,000 mcgIndications:Intestinal postoperative nonabsorption 1000 mcg IM [id number] 06/07/2023 08/01/19 25 Active documented as of this encounter (statuses as of 07/06/2023) Active Problems Problem Noted Date Diagnosed Date [...] CDH1, CDK4, CDKN1B, CDKN1C, CDKN2A (p14ARF), CDKN2A ([id number]), CEBPA, CHEK2, CTNNA1, DICER1, DIS3L2, EGFR, EPCAM, FH, FLCN, GATA2, GPC3, GREM1, HOXB13, HRAS, KIT, MAX, MEN1, MET, MITF, MLH1, MSH2, MSH3, MSH6, MUTYH, NBN, NF1, NF2, NTHL1, PALB2, PDGFRA, PHOX2B, PMS2, POLD1, POLE, POT1, [id number], PTCH1, PTEN, RAD50, RAD51C, RAD51D, RB1, RECQL4, RET, RUNX1, SDHA, SDHAF2, SDHB, SDHC, SDHD, SMAD4, SMARCA4, SMARCB1, SMARCE1, STK11, SUFU, TERC, TERT, [id number], TP53, TSC1, TSC2, VHL, WRN, WT1 Status [...] as of this encounter (statuses as of 07/06/2023) Resolved Problems Problem Noted Date Diagnosed Date [...] MFM consult Pt planning repeat c/s at [facility] 1. For patients [...] delivery at 36-37 weeks without amniocentesis per [employer]. Every effort [...] history of myomectomy. Scheduled for 06/25/15 at [facility] History of prior [...] indicate that she had a previous infection. [facility] EFW = 1487 01/10 (<3%) Reviewed [...] as of this encounter (statuses as of 07/06/2023) Immunizations Name Administration Dates Next Due Pneumococcal [...] Care Team (Late st Contact Info) Description 07/25/2023 4:30 PM EDT Office Visit Gynecology/Obstetric s [facility] [address] [place] [address] Tamiko Baker MD [address] [place] [address] 08/09/2023 2:00 PM EDT Office Visit Nutrition & Weight Management, [facility] [address] [place] [address] Joan Bright PA-C [address] [place] [address] 10/05/2023 1:30 PM EDT Office Visit Dermatology [facility] [address] [place] [address] Duane Perez MD [address] [place] [address] 10/25/2023 2:00 PM EDT Office Visit General Internal Medicine [facility] [place] [address] [place] [address] [address] Steffi Zamudio MD [address] [place] [address] [address] 03/07/2024 11:00 AM EST Telemedicine Hematology Oncology [facility] [address] [place] [facility] [facility] [place] [address] Malignancy, Multidisciplinary Clinic High Risk Gi [address] [facility] [place] [id number] 05/16/2024 1:30 PM EST Office Visit Dermatology [facility] [address] [place] [address] [address] Duane Perez MD [address] [place] [address] Scheduled Procedures Name Priority Associated Diagnoses Date/Ti me COLONOSCOPY FLEXIBLE PROXIMAL DIAGNOSTIC Recall PMS2-related Jackson syndrome (HNPCC4) ESOPHAGOGASTRODUODENOSCOPY ( EGD), FLEXIBLE, TRANSORAL, DIAGNOSTIC Recall PMS2-related Jackson syndrome (HNPCC4) Health Maintenance Due Date Last Done Comments Hepatitis B (1 of 3 - 19+ 3-dose series) 11/28/1999 HPV/Co-Test 2010 COVID-19 Vaccine ( - 2022-24 season) 2022 Influenza Vaccine (FLU shot) (Season Ended) 2023 02/26/2020, 01/22/2019, 01/06/2014, Additional history exists Cervical Cancer Screening 05/13/2024 Pap Smear 05/13/2024 05/13/2021, 03/27, 01/13/2015, Additional history exists Mammogram 07/04/2024 07/05/2023, 05/25, 06/15/2022, Additional history exists DTaP,Tdap,and Td Vaccines (4 [...] Procedure Name Priority Date/Time Associated Diagnosis Comments OUTSIDE LAB RESULTS 07/06/2023 documented in this encounter Results * OUTSIDE LAB RESULTS (07/06/2023) 07/06/2023 No Physician Data Unknown LABORATORY documented in this encounter Advance Directives Latest [...] and were consensually agreed upon. Care Teams Licensed Direct Entry Midwife Relationship Specialty Start Date End Date Steffi Zamudio MD [address] [place] [address] PCP - General Internal Medicine 05/04/11 documented as of this encounter
[2023-07-07] MEDS: oxyCODONE HCL IR 5 MG TAB (IMMEDIATE RELEASE) PO PRN (17:02)
[2023-07-08 07:29] LABS: Calcium 8.6 mg/dl (8.6-10.3); Creatinine Clr Calc Pharmacy 125.2 ml/min; Est GFR (African American) 131.8 ml/min; Est GFR (Non-African American) 113.7 ml/min; Potassium 3.8 mmol/L (3.5-5.1)
[2023-07-08] MEDS: traMADol HCL 50 MG TABLET PO PRN (08:41)
--- NOTE | 2023-07-08 10:27 | Gynecologic Progress Note ---
Date of Service July 08, 2023 Assessment & Plan Admission and Anticipated Discharge Date Admission Date: July 06, 2023 Subjective doing better. OOB to shower. Physical Exam Constitutional: WD/WN, vitals as above Gastrointestinal (Abdomen): Inspection/Auscultation: abdomen normal to inspection and + abdominal surgical incision multiple incisions c/d/i abdomen soft and non-tender J-P draining well light bloody fluid Musculoskeletal: Extremities: extremities normal to inspection Skin: no rashes, warm and dry Neurologic: patellar DTR's 2+ bilat, sensation intact Results & Data Vital Signs (Past 12 Hours) Vital Signs Temp Pulse Resp BP Pulse Ox O2 Del Method 07/07/23 23:30 36.8 C 91 H 18 101/63 96 Room Air Laboratory Results 07/06/23 07/06/23 07/07/23 08:36 08:53 06:05 WBC 9.11 RBC 3.25 L Hgb 9.8 L Hct 28.2 L MCV 86.8 MCH 30.2 MCHC 34.8 RDW Std Deviation 39.5 RDW Coeff of Tasha 12.4 Plt Count 202 MPV 9.5 Immature Gran % (Auto) 0.4 Neut % (Auto) 67.4 Lymph % (Auto) 21.5 [place] % (Auto) 8.3 Eos % (Auto) 2.0 Baso % (Auto) 0.4 Neut # (Auto) 6.13 Lymph # (Auto) 1.96 [place] # (Auto) 0.76 H Eos # (Auto) 0.18 Baso # (Auto) 0.04 Immature Gran # (Auto) 0.04 Sodium 138 Potassium 4.0 Chloride 109 H Carbon Dioxide 26 Anion Gap 3 BUN 10 Creatinine 0.61 Est Cr Clr Drug Dosing 119.0 Est GFR ( Amer) 129.6 Est GFR (Non-Af Amer) 111.8 BUN/Creatinine Ratio 16.4 Glucose 96 Calcium 8.5 L POC Ur Test NEG Blood Type A Negative Antibody Screen NEGATIVE 07/08/23 06:31 WBC RBC Hgb Hct MCV MCH MCHC RDW Std Deviation RDW Coeff of Tasha Plt Count MPV Immature Gran % (Auto) Neut % (Auto) Lymph % (Auto) [place] % (Auto) Eos % (Auto) Baso % (Auto) Neut # (Auto) Lymph # (Auto) [place] # (Auto) Eos # (Auto) Baso # (Auto) Immature Gran # (Auto) Sodium 137 Potassium 3.8 Chloride 106 Carbon Dioxide 26 Anion Gap 5 BUN 11 Creatinine 0.58 L Est Cr Clr Drug Dosing 125.2 Est GFR ( Amer) 131.8 Est GFR (Non-Af Amer) 113.7 BUN/Creatinine Ratio 19.0 Glucose 93 Calcium 8.6 POC Ur Test Blood Type Antibody Screen
== END 2023-07-08 11:35 | disposition home or self-care (01) ==
LOC: 4E1 08:27 → ASU 08:27

== ENCOUNTER 2023-07-09 17:38 | Observation (INO) ==
--- NOTE | 2023-07-09 17:51 | ED Triage Note ---
Date of Service July 09, 2023 Provider in Triage Author: Mike Cotto A History of Present Illness This patient was briefly evaluated while in triage. An abbreviated physical exam was performed. This patient is a 42-year-old Female who presents to the ED for evaluation of abdominal pain. Had hysterectomy and hernia repair on 07/05. No BM since surg. No gas movement. DC'd from this hospital yesterday. Referred back in for CT of belly due to abd pains. Physical Exam Limited Triage Exam: VITALS: Vitals are noted on the nurse's note and reviewed by myself. Vital signs stable. GENERAL: Well-developed, well-nourished, white female, who is in no acute distress and resting comfortably. Patient is cooperative with the examination. HEART: Regular rate and rhythm without murmurs gallops or rubs. LUNGS: Clear to auscultation bilaterally without wheezes, rales or rhonchi. No retractions or accessory muscle use. NEURO: Patient was alert and oriented to person place and time. CN II through XII grossly intact. Initial orders for labs and / or imaging were placed and patient was placed in the waiting area until a bed is available. Please see further documentation for the full ED course. MDM / Impression Impression Impression: Acute postoperative abdominal pain, Constipation
[2023-07-09 18:40] LABS: Basophils # (auto) 0.03 K/uL (0.00-0.20); Basophils % (auto) 0.3 %; Eosinophils # (auto) 0.26 K/uL (0.00-0.50); Hematocrit (blood only) 32.4 % (37.0-47.0); Immature Granulocytes # (auto) 0.02 K/uL (0.01-0.20); Immature Granulocytes % (auto) 0.2 %; Lymphocytes # (auto) 2.11 K/uL (1.20-3.40); Lymphocytes % (auto) 24.2 %; Mean Corpuscular Hemoglobin 30.5 pg (25.0-34.0); Mean Corpuscular Volume 89.8 fL (80.0-100.0); Mean Platelet Volume 9.3 fL (9.4-12.4); Monocytes # (auto) 0.39 K/uL (0.11-0.59); Monocytes % (auto) 4.5 %; Neutrophils % (auto) 67.8 %; Platelet Count 239 K/uL (130-400); RDW Coefficient of Variation 12.6 % (11.5-14.5); RDW Standard Deviation 41.4 fL (36.4-46.3); Red Blood Count 3.61 M/uL (4.20-5.40); White Blood Count 8.71 K/ul (4.8-10.8)
[2023-07-09 18:57] LABS: Albumin Globulin Ratio 1.5 (0.9-2); Albumin Level 4.1 gm/dl (3.4-5.0); BUN Creatinine Ratio 19.7 (10-20); Bilirubin,Total 0.5 mg/dl (0.2-1.0); Calcium 9.5 mg/dl (8.6-10.3); Creatinine Clr Calc Pharmacy 116.8 ml/min; Est GFR (African American) 129.6 ml/min; Est GFR (Non-African American) 111.8 ml/min; Globulin 2.8 gm/dl (2.5-4.0); Potassium 3.5 mmol/L (3.5-5.1); Total Protein 6.9 gm/dl (6.0-8.3)
[2023-07-09] MEDS: OPTIRAY 320 500ml IV ONE (19:17)
--- NOTE | 2023-07-09 19:47 | CT Scan Report ---
Exam(s): CT ABDOMEN + PELVIS With Contrast IV Amt: 89ML OF OPTIRAY 320 EXAM: CT Abdomen and Pelvis With Intravenous Contrast CLINICAL HISTORY: Reason for exam: abd pain. Recent surg. No BM.. TECHNIQUE: Axial computed tomography images of the abdomen and pelvis with intravenous contrast. CTDI is 14.54 mGy and DLP is 797.09 mGy-cm. Automated exposure control was utilized for the study. A dose lowering technique was utilized adhering to the principles of ALARA. CONTRAST: Patient received 89ML OF OPTIRAY 320 of IV contrast COMPARISON: No relevant prior studies available. FINDINGS: Lung bases: Unremarkable. No mass. No consolidation. ABDOMEN: Liver: Unremarkable. No mass. Gallbladder and bile ducts: Unremarkable. No calcified stones. No ductal dilation. Pancreas: Unremarkable. No mass. No ductal dilation. Spleen: Unremarkable. No splenomegaly. Adrenals: Unremarkable. No mass. Kidneys and ureters: Unremarkable. No solid mass. No hydronephrosis. Stomach and bowel: Large volume fecal retention in the ascending colon, correlate for constipation. Wall thickening of small bowel, concerning for enteritis. Gastric sleeve. PELVIS: Appendix: No findings to suggest acute appendicitis. Bladder: Unremarkable. No mass. Reproductive: Hysterectomy. Mild-moderate free fluid in the pelvis, which is mildly dense and may contain blood products. ABDOMEN and PELVIS: Intraperitoneal space: Large volume abdominal free air, likely from recent surgery. Correlate with surgical history. Bones/joints: No acute fracture. No dislocation. Soft tissues: Subcutaneous drain is present in the anterior abdominal wall subcutaneous fat. Vasculature: Unremarkable. No abdominal aortic aneurysm. Lymph nodes: Unremarkable. No enlarged lymph nodes. IMPRESSION: 1. Large volume abdominal free air, likely from recent surgery. Correlate with surgical history. 2. Large volume fecal retention in the ascending colon, correlate for constipation. 3. Wall thickening of small bowel, concerning for enteritis. 4. Hysterectomy. Mild-moderate free fluid in the pelvis, which is mildly dense and may contain blood products. 5. Subcutaneous drain is present in the anterior abdominal wall subcutaneous fat. Electronically signed by: Denny Moran MD 07/09/23 19:47 PM
[2023-07-09] MEDS ORDERED: LORazepam 0.5 MG TAB PO PRN (21:20)
[2023-07-09] MEDS ORDERED: ACETAMINOPHEN 1,000 MG/100 ML VIAL IV PRN (21:20)
[2023-07-09] MEDS ORDERED: ALUMINUM/MAGNESIUM/SIMETH (MAALOX MAX) 30 ML UDC PO PRN (21:20)
[2023-07-09] MEDS: ONDANSETRON INJ 2 MG/ML 2 ML VIAL IV STA (21:26)
[2023-07-09] MEDS: HYDROmorphone INJ 0.5 MG/0.5 ML SYR IV STA (21:26)
[2023-07-09] MEDS: SODIUM CHLORIDE 0.9% 1,000 ML IV SCH (21:29)
[2023-07-09] MEDS: KETOROLAC TROMETHAMINE 15 MG/ML VIAL IV ONE (21:31)
[2023-07-09] MEDS: D5W AND 1/2NSS + 20MEQ KCL 20 MEQ/1,000 ML BAG IV SCH (21:41)
--- NOTE | 2023-07-09 22:51 | OB/GYN Consultation ---
Date of Consultation July 09, 2023 Assessment & Plan (1) Constipation: (2) Abdominal pain: (3) Jackson syndrome: (4) S/P laparoscopic hysterectomy: Patient is a 42-year-old -0-0-2 female who is status post total laparoscopic hysterectomy, abdominal wall hernia repair with mesh on July 05, presenting today with continued pain, constipation, unable to pass gas, Vital signs stable afebrile, Abdominal exam is benign, White count within normal limits, CT of abdomen with postop changes, Consulted general surgery who recommended bowel regimen, IV fluids, observe overnight, n.p.o. until morning rounds by Dr. Kendrick, Plan to admit, pain control, MiraLAX and hypomagnesia, IV fluids with potassium, n.p.o. except clears, Repeat labs in the morning, All questions were answered. (5) S/P hernia surgery: History of Present Illness History of Present Illness Patient is a 42-year-old -0-0-2 with history of prior 2 C-sections, myomectomy, gastric sleeve surgery 2 years ago. s/p total laparoscopic hysterectomy by Dr. Baker, anterior abdominal wall hernia repair with mesh with Dr. Kendrick on July 05, discharged yesterday. She called in with continued pain 7 out of 8 since surgery, about the same not getting better over time and constipation, unable to move her bowels since before surgery probably on July 03 or , not sure, unable to pass gas. She was recommended to come into the ER by office. She was seen by ER physician and ordered CT of abdomen and blood work. Blood work was normal with normal white count, H&H and metabolic panel. CT scan showed constipation with fecal retention, free air in upper abdomen most likely from surgery, fluid in the pelvis most likely from recent surgery. She denies fever, chills, nausea vomiting. She has been eating drinking normally and keeping it down with no vomiting. She passed gas very little once or twice, unable to move her bowels. She has been using oxycodone every 4 hours since surgery but it is not helping. She is not taking Tylenol nor Motrin because of gastric sleeve surgery. She denies vaginal bleeding, spotting or discharge. Allergies Allergy/AdvReac Type Severity Reaction Status Date / Time adhesive tape Allergy Unknown Rash Verified 07/06/23 08:56 gluten Allergy Unknown RASH Verified 07/06/23 08:56 Iodinated Contrast Media AdvReac Rash Verified 07/09/23 21:38 Home Medications Medication Instructions Recorded Confirmed Type albuterol sulfate 90 mcg/actuation 2 puff inhalation Q4 PRN Wheezing 02/18/21 0 07/09/23 History aerosol inhaler ferrous sulfate 325 mg (65 mg 325 mg PO DAILY 02/18/21 07/09/23 History iron) tablet (FeroSul) metronidazole 0.75 % lotion 1 applic topical BID 02/18/21 07/09/23 History calcium carbonate 600 mg-vitamin 1 tab PO DAILY 05/30/21 07/09/23 History D3 10 mcg (400 unit) tablet (Calcium 600 + D(3)) cholecalciferol (vitamin D3) 50 50 mcg PO DAILY 05/30/21 07/09/23 History mcg (2,000 unit) tablet (Vitamin D3) clotrimazole 1 % topical cream 1 applic topical UD PRN facial 05/30/21 07/09/23 History condition nystatin 100,000 unit/gram topical 1 applic topical TID 05/30/21 07/09/23 History powder (Nystop) pimecrolimus 1 % topical cream 1 applic topical BID 05/30/21 07/09/23 History (Elidel) bupropion HCl 100 mg tablet,12 hr 100 mg PO QAM 05/29/23 07/09/23 History sustained-release lorazepam 0.5 mg tablet 0.5 mg PO DAILY PRN Anxiety 05/29/23 07/09/23 History semaglutide (weight loss) 2.4 2.4 mg subcut Q7D 05/29/23 07/09/23 History mg/0.75 mL subcutaneous pen injector (Wegovy) acetaminophen 325 mg capsule 975 mg (3 x 325 mg) PO Q6H #165 07/06/23 07/09/23 Rx caps cephalexin 500 mg capsule 500 mg PO TID 7 days #21 caps 07/06/23 07/09/23 Rx docusate sodium 100 mg capsule 100 mg PO BID #60 caps 07/06/23 07/09/23 Rx (Colace) oxycodone 5 mg capsule 5 mg PO Q4H PRN pain (scale score 04/12/24 04/15/24 Rx 7-10) #12 caps simethicone 80 mg chewable tablet 80 mg PO QID #55 tabs 07/06/23 07/09/23 Rx Patient History Medical History 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 Anxiety History of COVID-19 2020-hospitalized at [facility] w/ hypoxemia 10/2022- no hospilzation, symptoms resolved Celiac disease Hx of migraines Childhood Surgical History History of gastric surgery gastric sleeve History of anesthesia reaction Slow to wake Hallucinations with anesthesia emergence Hx of endoscopy Hx of colonoscopy Hx of section x2 Hx of myomectomy History of removal of retained hardware Right leg History of open reduction and internal fixation (ORIF) procedure Right leg Hx of LASIK Hx of wisdom tooth extraction History of tonsillectomy and adenoidectomy Social History Smoking Status: Never smoker Second Hand Exposure: No; Do You Dip or Chew Tobacco: No; Hx Alcohol Use: No Hx Substance Use: No Preferred Language: Bulgarian Communication Ability: Effective 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 Beliefs That Will Affect Care: None Current Living Situation: Family Feels Safe at Home: Yes Assistive Devices: None Review of Systems Constitutional: as per Subjective / HPI Physical Exam Constitutional: WD/WN, vitals as above well developed, well nourished and comfortable Gastrointestinal (Abdomen): normal bowel sounds, soft, nontender, no hepatosplenomegaly Percussion/Palpation: + abdomen tender and abdomen soft Patient abdomen is soft, nontender nondistended, appropriately tender around incisions, no rebound, incisions clean dry intact, drain is draining small amount of serosanguineous fluid pinkish, it has been draining about 100 mL a day since surgery per her and her mom Genitourinary: Deferred, patient denies bleeding no discharge, her pad is dry and clean Results & Data Vital Signs (Past 12 Hours) Vital Signs Temp Pulse Pulse Resp BP BP Pulse Ox 07/09/23 21:45 86 18 107/77 97 07/09/23 19:59 86 18 114/84 98 07/09/23 17:50 36.8 C 78 15 121/83 98 O2 Del Method 07/09/23 21:45 Room Air 07/09/23 19:59 07/09/23 17:50 Room Air Laboratory Results Lab Results 07/09/23 Range/Units 18:24 WBC 8.71 (4.8-10.8) K/ul RBC 3.61 L (4.20-5.40) M/uL Hgb 11.0 L (12.0-16.0) g/dl Hct 32.4 L (37.0-47.0) % MCV 89.8 (80.0-100.0) fL MCH 30.5 (25.0-34.0) pg MCHC 34.0 (32.0-36.0) g/dL RDW Std Deviation 41.4 (36.4-46.3) fL RDW Coeff of Tasha 12.6 (11.5-14.5) % Plt Count 239 (130-400) K/uL MPV 9.3 L (9.4-12.4) fL Immature Gran % (Auto) 0.2 % Neut % (Auto) 67.8 % Lymph % (Auto) 24.2 % [place] % (Auto) 4.5 % Eos % (Auto) 3.0 % Baso % (Auto) 0.3 % Neut # (Auto) 5.90 (1.40-6.50) K/uL Lymph # (Auto) 2.11 (1.20-3.40) K/uL [place] # (Auto) 0.39 (0.11-0.59) K/uL Eos # (Auto) 0.26 (0.00-0.50) K/uL Baso # (Auto) 0.03 (0.00-0.20) K/uL Immature Gran # (Auto) 0.02 (0.01-0.20) K/uL Sodium 137 (136-145) mmol/L Potassium 3.5 (3.5-5.1) mmol/L Chloride 101 (98-107) mmol/L Carbon Dioxide 29 (21-32) mmol/L Anion Gap 7 (3-11) BUN 12 (6-23) mg/dl Creatinine 0.61 (0.6-1.2) mg/dl Est Cr Clr Drug Dosing 116.8 ml/min Est GFR ( Amer) 129.6 ml/min Est GFR (Non-Af Amer) 111.8 ml/min BUN/Creatinine Ratio 19.7 (10-20) Glucose 81 (70-99(Fasting)) mg/dl Calcium 9.5 (8.6-10.3) mg/dl Total Bilirubin 0.5 (0.2-1.0) mg/dl AST 23 (13-39) U/L ALT 26 (7-52) U/L Alkaline Phosphatase 63 (34-104) U/L Total Protein 6.9 (6.0-8.3) gm/dl Albumin 4.1 (3.4-5.0) gm/dl Globulin 2.8 (2.5-4.0) gm/dl Albumin/Globulin Ratio 1.5 (0.9-2) Lipase 10 L (11-82) U/L (1) Constipation Constipation type: slow transit constipation Qualified Code(s): K59.01 - Slow transit constipation (2) Abdominal pain Abdominal location: generalized Qualified Code(s): R10.84 - Generalized abdominal pain
--- NOTE | 2023-07-09 22:55 | Surgery Consultation ---
Date of Consultation July 09, 2023 Assessment & Plan (1) Abdominal pain: The patient is being admitted on the MISSILE INSPECTOR service. From a general surgical perspective we recommend the following: On the patient's CT scan she does have noted intraperitoneal free air. This free air may be residual from her recent surgical procedure, but this has not been definitively ascertained. On physical exam the patient does not have an acute abdomen that would suggest an injury to any intra-abdominal organs. She does not have any signs of peritoneal irritation. She is noted to be hemodynamically stable (normotensive, nontachycardic, afebrile) and has a normal white blood cell count, no electrolyte abnormalities, and does not have evidence of acute kidney injury. I therefore feel conservative management is indicated at this time Provide analgesics as needed. Due to the patient's constipation I would sharif mmend trying to limit narcotics. Provide antiemetics as needed Would recommend keeping the patient n.p.o. for the present time. She will be reevaluated the morning of 07/10/2023 and determination be made if her diet can be advanced at that time. Provide IV fluid at maintenance rate for hydration while the patient is n.p.o. Repeat labs in the morning Recommend placing the patient on a bowel regimen due to her constipation. The CALL WORKER service has initiated Colace, milk of magnesia, and MiraLAX. Would continue this regimen for the present time with adjustments to be made as needed based on her response. I discussed this case with my attending physician, Dr. Sanchez who is in agreement with this plan I discussed the above recommendations with Dr. Alexander of the MISSILE INSPECTOR service who will be admitting the patient Addendum (3:00 am) Pt. revisited at bedside and noted to be resting comfortably in bed. Since arrival to floor she denies any worsening abdominal pain. She has not had any N/V. No BM or flatus. Vital reviewed and she is normotensive without tachycardia or fever. Abdominal exam unchanged from what was noted at time of admission in the ED. Continue plan as noted above. (2) Constipation: Supervising Physician Co-Signing Physician Notes I personally saw and evaluated the patient with Jose Catherine PA-C and agree with the assessment and plan 42 yo female s/p open incisional hernia repair, here with pneumoperitoneum after surgery CT images and results were personally viewed and interpreted by myself' She does have more pneumoperitoneum than expected after surgery, however her labs, vitals and abdominal exam are all benign She has been admitted to CALL WORKER No plans for any surgical intervention and will turn care [facility] AM History of Present Illness Reason for Consultation: Abdominal pain Constipation History of Present Illness This is a 42-year-old female who underwent recent surgery at [facility] on 07/06/2023. The patient underwent a combined procedure with general surgery and the MISSILE INSPECTOR service. Dr. Luis Daniel Kendrick (general surgery) performed an open incisional hernia repair with lysis of adhesions. Dr. Kendrick's operative note was reviewed. He noted that there is no bowel contained within the hernia sac and he did a repair utilizing mesh. A CHAYA drain was placed following conclusion of this portion of the procedure. Dr. Baker (MISSILE INSPECTOR) performed a robotic hysterectomyher operative note was reviewed and it appeared that there were dense adhesions between the uterus and the bladder, rectum, and anterior abdominal wall. It is noteworthy to mention that a cystoscopy was also performed and at the conclusion of the procedure and there did not appear to be any issues with the bladder. The patient was kept in the hospital for for pain control following her surgery and was discharged on 07/08/2023. The patient notes that she had not had a bowel movement or passed any flatus prior to discharge. She notes that she was taking oxycodone for pain at home but noted some worsening abdominal pain across her lower abdomen that was not alleviated with the prescribed pain medication. She also notes that she has still not had a bowel movement since her surgery, and actually notes that she believes her most recent bowel movement was actually the day before her surgery. She is also not passing any flatus. She denies any fevers, shakes, or chills. She denies any nausea or vomiting. As noted the patient does have a CHAYA drain and it is draining what she describes as serosanguineous fluid and has been draining approximately 50 cc daily. I did asked the patient if she had any prior abdominal surgeries other than what was described above and she did have a gastric sleeve with cholecystectomy performed in [place] about 2 years ago. She has undergone 2 and has also had a myomectomy. Since arrival to the emergency department today the patient has had labs and imaging which I independently reviewed. Patient did have a CT scan of the abdomen pelvis were patient was noted to have a large volume of abdominal free air. The patient was also noted to have a large volume of fecal retention in the ascending colon and some thickening of the small bowel concerning for enteritis. There is mild to moderate amount of free fluid in the pelvis. Patient's labs include a CBC were white blood cell count and platelet count were normal. Patient's hemoglobin was noted to be 11.0 and her hematocrit was 32.4 (Her most recent hemoglobin and hematocrit prior to discharge from the hospital was on 07/07/2023 and noted to be 9.8 and 28.2 respectively.) Chemistry profile revealed a sodium and potassium as well as the BUN and creatinine that were all within normal range. There is no elevation of LFTs or lipase. Since arrival to the emergency department the patient has received 0.5 mg of intravenous Dilaudid. At the time of my interview the patient was resting comfortably in bed and appeared to have minimal pain and was in no distress. Allergies Allergy/AdvReac Type Severity Reaction Status Date / Time adhesive tape Allergy Unknown Rash Verified 07/06/23 08:56 gluten Allergy Unknown RASH Verified 07/06/23 08:56 Iodinated Contrast Media AdvReac Rash Verified 07/09/23 21:38 Home Medications Medication Instructions Recorded Confirmed Type albuterol sulfate 90 mcg/actuation 2 puff inhalation Q4 PRN Wheezing 02/18/21 07/09/23 History aerosol inhaler ferrous sulfate 325 mg (65 mg 325 mg PO DAILY 02/18/21 07/09/23 History iron) tablet (FeroSul) metronidazole 0.75 % lotion 1 applic topical BID 02/18/21 07/09/23 History calcium carbonate 600 mg-vitamin 1 tab PO DAILY 05/30/21 07/09/23 History D3 10 mcg (400 unit) tablet (Calcium 600 + D(3)) cholecalciferol (vitamin D3) 50 50 mcg PO DAILY 05/30/21 07/09/23 History mcg (2,000 unit) tablet (Vitamin D3) clotrimazole 1 % topical cream 1 applic topical UD PRN facial 05/30/21 07/09/23 History condition nystatin 100,000 unit/gram topical 1 applic topical TID 05/30/21 07/09/23 History powder (Nystop) pimecrolimus 1 % topical cream 1 applic topical BID 05/30/21 07/09/23 History (Elidel) bupropion HCl 100 mg tablet,12 hr 100 mg PO QAM 05/29/23 07/09/23 History sustained-release lorazepam 0.5 mg tablet 0.5 mg PO DAILY PRN Anxiety 05/29/23 07/09/23 History semaglutide (weight loss) 2.4 2.4 mg subcut Q7D 05/29/23 07/09/23 History mg/0.75 mL subcutaneous pen injector (Wegovy) acetaminophen 325 mg capsule 975 mg (3 x 325 mg) PO Q6H #165 07/06/23 07/09/23 Rx caps cephalexin 500 mg capsule 500 mg PO TID 7 days #21 caps 07/06/23 07/09/23 Rx docusate sodium 100 mg capsule 100 mg PO BID #60 caps 07/06/23 07/09/23 Rx (Colace) oxycodone 5 mg capsule 5 mg PO Q4H PRN pain (scale score 07/06/23 07/09/23 Rx 7-10) #12 caps simethicone 80 mg chewable tablet 80 mg PO QID #55 tabs 07/06/23 07/09/23 Rx Patient History Medical History 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 Anxiety History of COVID-19 2020-hospitalized at [facility] w/ hypoxemia 10/2022- no hospilzation, symptoms resolved Celiac disease Hx of migraines Childhood Surgical History History of gastric surgery gastric sleeve History of anesthesia reaction Slow to wake Hallucinations with anesthesia emergence Hx of endoscopy Hx of colonoscopy Hx of section x2 Hx of myomectomy History of removal of retained hardware Right leg History of open reduction and internal fixation (ORIF) procedure Right leg Hx of LASIK Hx of wisdom tooth extraction History of tonsillectomy and adenoidectomy Social History Smoking Status: Never smoker Second Hand Exposure: No; Do You Dip or Chew Tobacco: No; Tobacco Cessation Education Requested by Patient: No Hx Alcohol Use: No Hx Substance Use: No Preferred Language: Iraqi Communication Ability: Effective Company Pilot Required: No Beliefs That Will Affect Care: None Current Living Situation: Family Other Information That Helps Us Care for You: No Feels Safe at Home: Yes Assistive Devices: None Review of Systems Constitutional: no fever and no chills Respiratory: no cough and no dyspnea Cardiovascular: no chest pain Gastrointestinal: as per Subjective / HPI, + abdominal pain and + constip ation; no nausea and no vomiting Genitourinary: no dysuria Musculoskeletal: no back pain Integumentary: no rash Neurologic: no localized weakness Physical Exam Constitutional: WD/WN, vitals as above Eyes: no conjunctival abnormality ENMT: Ears: no hearing impairment and no external ear abnormality Mouth: no oropharynx abnormality Neck: trachea midline Respiratory: normal respiratory effort; no respiratory distress and no labored breathing Cardiovascular: Rate/Rhythm: regular rate and regular rhythm Vessels: dorsalis pedis pulses present and radial pulses present Gastrointestinal (Abdomen): At the time of my exam the patient's abdomen is soft, nonrigid, and nondistended. The patient had a midline incision from hernia repair that was clean, dry, and intact. Patient also had 3 laparoscopic incisions that were also clean, dry, and intact. Palpation of the abdomen did not elicit much of a painful response. There is no rebound tenderness or guarding or signs of peritoneal irritation. A CHAYA drain was in place that was draining serosanguineous fluid. Musculoskeletal: No calf tenderness, feet are warm and nonmottled Skin: no rashes Neurologic: moves all extremities Psychiatric: A+Ox3, euthymic affect Results & Data Vital Signs (Past 12 Hours) Vital Signs Temp Pulse Pulse Resp BP BP Pulse Ox 07/09/23 21:45 86 18 107/77 97 07/09/23 19:59 86 18 114/84 98 07/09/23 17:50 36.8 C 78 15 121/83 98 O2 Del Method 07/09/23 21:45 Room Air 07/09/23 19:59 07/09/23 17:50 Room Air PG Care Time/CCT Total # of Minutes Spent Total Time Spent with Patient: Total time spent is greater than 50% in coordination of care (as documented) at patient's floor/unit and/or counseling patient: Coding Level of Care Code None Diagnoses Abdominal pain R10.9 Constipation K59.00
[2023-07-10] MEDS ORDERED: ALBUTEROL HFA 8 GM INHALER INH PRN (00:16)
[2023-07-10] MEDS ORDERED: LORazepam 0.5 MG TAB PO PRN (00:16)
[2023-07-10] MEDS ORDERED: CLOTRIMAZOLE 1% CR 15 GM TUBE TOP PRN (00:16)
[2023-07-10] MEDS: traMADol HCL 50 MG TABLET PO PRN (00:46)
[2023-07-10] MEDS: MAGNESIUM HYDROXIDE SUSP 30 ML UDC PO PRN (00:46)
--- NOTE | 2023-07-10 01:08 | Emergency Department Note ---
Impression & Plan Acute postoperative abdominal pain, Constipation ED Provider Note NAME: FRANCINE VILLAR AGE: 42 SEX: Female INFORMANT: Patient ED PROVIDER(S): Wiliam Amos MD CHIEF COMPLAINT: Abdominal pain PLAN: Disposition: Admitted Outpatient prescription management: none Referral: None MEDICAL DECISION MAKING: Patient presented because of continued postoperative abdominal pain. She underwent a workup. Her CBC showed improving anemia. Chemistry panel was unremarkable. She was uncomfortable but did not have any peritoneal findings on examination. Her incision sites look clean dry and intact. The patient was hydrated and given Zofran as well as Dilaudid. Toradol was initially considered however due to her gastric surgery this was held. Patient did feel better on reassessment. CT imaging shows free air in the abdomen 3 days after her abdominal surgery. The patient has a mild amount of stool in the ascending colon. Consultation was placed with [facility]SP[employer] CUTTER, Dr. Alexander. She did evaluate the patient and will admit her. She also did place a consult with general surgery. Patient was evaluated by general surgery in the ER. I refer you to the EMR for further details. Care/management discussed with: none Level of care consideration(s): After review of the information above and other included data, I feel the patient requires escalation of care to admission Triage Nursing notes: reviewed and agree them. Vital Signs: reviewed and remarkable for no significant abnormalities Additional History obtained from: none Chronic Medical/Social Conditions affecting care: none Prior/ Outside/ External records reviewed: none Differential Diagnosis: Complication of recent surgery, hernia, volvulus, constipation, appendicitis, ovarian cyst, ovarian torsion, TOA, PID, infections, diverticulitis, UTI, obstruction, mesenteric ischemia, aortic pathology, inflammatory bowel disease, renal colic, PUD, pancreatitis, biliary pathology, as well as other pathologies. Diagnostics, independently interpreted by me: ECG: none Cardiac Monitoring: none Medical decision rules: none Imaging studies: I refer you to the EMR for further details. HPI: 42 year old Female arrives for evaluation of abdominal pain. Patient is 3 days postop from a laparoscopic/open hysterectomy and hernia repair done here. Patient notes that she was in the hospital for 2 days because of pain. She has been taking oxycodone at home. She rated her pain as an 8 out of 10. She contacted the on-call provider and was directed to the emergency department for further evaluation. The patient denies any bleeding issues. She notes her incisions are intact without opening. Patient states she has not had a bowel movement in about 4 to 5 days. pt denies LOC, headache, fevers, chills, diaphoresis, visual changes, neck pain, chest pain, breathing difficulties, back pain, melena, hematochezia, urinary symptoms, numbness, weakness, rash, or other complaints. PAST MEDICAL HISTORY: See Below, Jackson syndrome PAST SURGICAL HISTORY: See Below, hysterectomy SOCIAL HISTORY: See Below, non-smoker HOME MEDICATIONS: See Below ALLERGIES: See Below VITALS: See Below PHYSICAL EXAMINATION: GENERAL: Awake, alert, uncomfortable appearing, in no distress HENT: Normocephalic, atraumatic. Oropharynx unremarkable. EYES: Normal conjunctiva. Sclera non-icteric. NECK: Inspection normal. Non-tender. Supple. No nuchal rigidity. FROM. No masses. RESPIRATORY: Clear to auscultation. No wheezes. No rales. Normal respiratory effort. CARDIAC: Normal rate. Normal rhythm. No murmurs. No rubs. Extremities warm and well perfused. Pulses equal. No JVD. GI: Soft, non-distended. Right lower tenderness to palpation. No rebound or guarding. No masses. Incisions are clean dry and intact. CHAYA drain in place in the lower abdomen. RECTAL: Deferred. MUSCULOSKELETAL: Atraumatic. No joint edema. LOWER EXTREMITIES: Calves are equal size bilaterally and non-tender. No edema. No discoloration. NEURO: Normal sensorium. No sensory or motor deficits noted. SKIN: No rash or jaundice noted. 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 Anxiety History of COVID-19 2020-hospitalized at [facility] w/ hypoxemia 10/2022- no hospilzation, symptoms resolved Celiac disease Hx of migraines Childhood Surgical History History of gastric surgery gastric sleeve History of anesthesia reaction Slow to wake Hallucinations with anesthesia emergence Hx of endoscopy Hx of colonoscopy Hx of section x2 Hx of myomectomy History of removal of retained hardware Right leg History of open reduction and internal fixation (ORIF) procedure Right leg Hx of LASIK Hx of wisdom tooth extraction History of tonsillectomy and adenoidectomy Social History Smoking Status: Never smoker Second Hand Exposure: No; Do You Dip or Chew Tobacco: No; Hx Alcohol Use: No Hx Substance Use: No Preferred Language: Italian Communication Ability: Effective Sizing Sprayer Required: No Beliefs That Will Affect Care: None Current Living Situation: Family Feels Safe at Home: Yes Assistive Devices: None Allergies Allergies Allergy/AdvReac Type Severity Reaction Status Date / Time adhesive tape Allergy Unknown Rash Verified 07/06/23 08:56 gluten Allergy Unknown RASH Verified 07/06/23 08:56 Iodinated Contrast Media AdvReac Rash Verified 07/09/23 21:38 Home Meds Home Medications Medication Instructions Recorded Confirmed albuterol sulfate 90 mcg/actuation 2 puff inhalation Q4 PRN Wheezing 02/18/21 07/09/23 aerosol inhaler ferrous sulfate 325 mg (65 mg 325 mg PO DAILY 02/18/21 07/09/23 iron) tablet (FeroSul) metronidazole 0.75 % lotion 1 applic topical BID 02/18/21 07/09/23 calcium carbonate 600 mg-vitamin 1 tab PO DAILY 05/30/21 07/09/23 D3 10 mcg (400 unit) tablet (Calcium 600 + D(3)) cholecalciferol (vitamin D3) 50 50 mcg PO DAILY 05/30/21 07/09/23 mcg (2,000 unit) tablet (Vitamin D3) clotrimazole 1 % topical cream 1 applic topical UD PRN facial 05/30/21 07/09/23 condition nystatin 100,000 unit/gram topical 1 applic topical TID 05/30/21 07/09/23 powder (Nystop) pimecrolimus 1 % topical cream 1 applic topical BID 05/30/21 07/09/23 (Elidel) bupropion HCl 100 mg tablet,12 hr 100 mg PO QAM 05/29/23 07/09/23 sustained-release lorazepam 0.5 mg tablet 0.5 mg PO DAILY PRN Anxiety 05/29/23 07/09/23 semaglutide (weight loss) 2.4 2.4 mg subcut Q7D 05/29/23 07/09/23 mg/0.75 mL subcutaneous pen injector (Kenton) Previous Rx's Medication Instructions Recorded acetaminophen 325 mg capsule 975 mg (3 x 325 mg) PO Q6H #165 07/06/23 caps cephalexin 500 mg capsule 500 mg PO TID 7 days #21 caps 07/06/23 docusate sodium 100 mg capsule 100 mg PO BID #60 caps 07/06/23 (Colace) oxycodone 5 mg capsule 5 mg PO Q4H PRN pain (scale score 07/06/23 7-10) #12 caps simethicone 80 mg chewable tablet 80 mg PO QID #55 tabs 07/06/23 Results & Data (ED) Vital Signs Vital Signs - 24 hr 07/09/23 17:50 07/09/23 19:59 Temperature 36.8 C Temperature Source Temporal Artery Scan Pulse Rate 78 Pulse Rate [Right Radial] 86 Respiratory Rate 15 18 Blood Pressure 121/83 Blood Pressure [Right Arm] 114/84 Blood Pressure Mean 95 Blood Pressure Mean [Right Arm] 94 Pulse Oximetry 98 98 Oxygen Delivery Method Room Air Sepsis Recent Fever Within 48 Hours No Sepsis New/Unexplained Change in Mental Status No Sepsis Action Taken by Nursing No Action Required Laboratory Data 07/09/23 18:24 07/09/23 18:24 Lab Results 07/09/23 Range/Units 18:24 WBC 8.71 (4.8-10.8) K/ul RBC 3.61 L (4.20-5.40) M/uL Hgb 11.0 L (12.0-16.0) g/dl Hct 32.4 L (37.0-47.0) % MCV 89.8 (80.0-100.0) fL MCH 30.5 (25.0-34.0) pg MCHC 34.0 (32.0-36.0) g/dL RDW Std Deviation 41.4 (36.4-46.3) fL RDW Coeff of Tasha 12.6 (11.5-14.5) % Plt Count 239 (130-400) K/uL MPV 9.3 L (9.4-12.4) fL Immature Gran % (Auto) 0.2 % Neut % (Auto) 67.8 % Lymph % (Auto) 24.2 % Mellette % (Auto) 4.5 % Eos % (Auto) 3.0 % Baso % (Auto) 0.3 % Neut # (Auto) 5.90 (1.40-6.50) K/uL Lymph # (Auto) 2.11 (1.20-3.40) K/uL Mellette # (Auto) 0.39 (0.11-0.59) K/uL Eos # (Auto) 0.26 (0.00-0.50) K/uL Baso # (Auto) 0.03 (0.00-0.20) K/uL Immature Gran # (Auto) 0.02 (0.01-0.20) K/uL Sodium 137 (136-145) mmol/L Potassium 3.5 (3.5-5.1) mmol/L Chloride 101 (98-107) mmol/L Carbon Dioxide 29 (21-32) mmol/L Anion Gap 7 (3-11) BUN 12 (6-23) mg/dl Creatinine 0.61 (0.6-1.2) mg/dl Est Cr Clr Drug Dosing 116.8 ml/min Est GFR ( Amer) 129.6 ml/min Est GFR (Non-Af Amer) 111.8 ml/min BUN/Creatinine Ratio 19.7 (10-20) Glucose 81 (70-99(Fasting)) mg/dl Calcium 9.5 (8.6-10.3) mg/dl Total Bilirubin 0.5 (0.2-1.0) mg/dl AST 23 (13-39) U/L ALT 26 (7-52) U/L Alkaline Phosphatase 63 (34-104) U/L Total Protein 6.9 (6.0-8.3) gm/dl Albumin 4.1 (3.4-5.0) gm/dl Globulin 2.8 (2.5-4.0) gm/dl Albumin/Globulin Ratio 1.5 (0.9-2) Lipase 10 L (11-82) U/L Administered Medications Potassium Chloride/Dextrose/Sod Cl (D5w And 1/2nss + 20meq Kcl) 20 meq in 1,000 mls @ 125 mls/hr IV .Q8H JULISSA Stop: 08/08/23 21:29 Last Admin: 07/09/23 21:41 Dose: 125 mls/hr Documented By: KADEN Magnesium Hydroxide (Magnesium Hydroxide Susp 30 Ml Udc) 30 ml PO Q6H PRN PRN Reason: Constipation Stop: 08/08/23 21:19 Last Admin: 07/10/23 00:46 Dose: 30 ml Documented By: Tramadol HCl (Tramadol Hcl 50 Mg Tablet) 50 mg PO Q4H PRN PRN Reason: Pain Stop: 08/09/23 00:15 Last Admin: 07/10/23 00:46 Dose: 50 mg Documented By: Discontinued Medications Hydromorphone HCl (Hydromorphone Inj 0.5 Mg/0.5 Ml Syr) 0.5 mg IV NOW STA Stop: 07/09/23 21:11 Last Admin: 07/09/23 21:26 Dose: 0.5 mg Documented By: KADEN Sodium Chloride (Nss) 1,000 mls @ 999 mls/hr IV .Q1H1M JULISSA Stop: 07/09/23 22:04 Last Infusion: 07/09/23 22:38 Dose: Infused Documented By: Admin: 07/09/23 21:29 Dose: 999 mls/hr Documented By: KADEN Ioversol (Optiray 320 500ml) 89 ml IV ONCE ONE Stop: 07/09/23 19:18 Last Admin: 07/09/23 19:17 Dose: 89 ml Documented By: PARAMJIT Ketorolac Tromethamine (Ketorolac Tromethamine 15 Mg/Ml Vial) 15 mg IV NOW ONE Stop: 07/09/23 21:05 Last Admin: 07/09/23 21:31 Dose: Not Given Documented By: KADEN Ondansetron HCl (Ondansetron Inj 2 Mg/Ml 2 Ml Vial) 4 mg IV NOW STA Stop: 07/09/23 21:05 Last Admin: 07/09/23 21:26 Dose: 4 mg Documented By: KADEN Imaging Data Radiologist's Impression: Abdomen/Pelvis CT 07/09/23 17:51 Exam(s): CT ABDOMEN + PELVIS With Contrast IV Amt: 89ML OF OPTIRAY 320 EXAM: CT Abdomen and Pelvis With Intravenous Contrast CLINICAL HISTORY: Reason for exam: abd pain. Recent surg. No BM.. TECHNIQUE: Axial computed tomography images of the abdomen and pelvis with intravenous contrast. CTDI is 14.54 mGy and DLP is 797.09 mGy-cm. Automated exposure control was utilized for the study. A dose lowering technique was utilized adhering to the principles of ALARA. CONTRAST: Patient received 89ML OF OPTIRAY 320 of IV contrast COMPARISON: No relevant prior studies available. FINDINGS: Lung bases: Unremarkable. No mass. No consolidation. ABDOMEN: Liver: Unremarkable. No mass. Gallbladder and bile ducts: Unremarkable. No calcified stones. No ductal dilation. Pancreas: Unremarkable. No mass. No ductal dilation. Spleen: Unremarkable. No splenomegaly. Adrenals: Unremarkable. No mass. Kidneys and ureters: Unremarkable. No solid mass. No hydronephrosis. Stomach and bowel: Large volume fecal retention in the ascending colon, correlate for constipation. Wall thickening of small bowel, concerning for enteritis. Gastric sleeve. PELVIS: Appendix: No findings to suggest acute appendicitis. Bladder: Unremarkable. No mass. Reproductive: Hysterectomy. Mild-moderate free fluid in the pelvis, which is mildly dense and may contain blood products. ABDOMEN and PELVIS: Intraperitoneal space: Large volume abdominal free air, likely from recent surgery. Correlate with surgical history. Bones/joints: No acute fracture. No dislocation. Soft tissues: Subcutaneous drain is present in the anterior abdominal wall subcutaneous fat. Vasculature: Unremarkable. No abdominal aortic aneurysm. Lymph nodes: Unremarkable. No enlarged lymph nodes. IMPRESSION: 1. Large volume abdominal free air, likely from recent surgery. Correlate with surgical history. 2. Large volume fecal retention in the ascending colon, correlate for constipation. 3. Wall thickening of small bowel, concerning for enteritis. 4. Hysterectomy. Mild-moderate free fluid in the pelvis, which is mildly dense and may contain blood products. 5. Subcutaneous drain is present in the anterior abdominal wall subcutaneous fat. Electronically signed by: Denny Moran MD 07/09/23 19:47 PM Discharge Plan Visit Data Chief Complaint: Referred by Doctor Stated Complaint: ABDOMINAL PAIN, REFERRED BY DOCTOR FOR A CT ED Provider: Wiliam Amos Discharge Problem: Acute postoperative abdominal pain, Constipation Patient Disposition: Admitted As Inpatient Discharge Instructions Interventions: ED Discharge Assessment Last Done: 07/09/23 23:05
[2023-07-10] MEDS: ACETAMINOPHEN 325 MG TAB PO PRN (03:04)
[2023-07-10 06:30] LABS: Basophils # (auto) 0.02 K/uL (0.00-0.20); Basophils % (auto) 0.4 %; Eosinophils # (auto) 0.27 K/uL (0.00-0.50); Eosinophils % (auto) 4.8 %; Hemoglobin 9.5 g/dl (12.0-16.0); Immature Granulocytes # (auto) 0.01 K/uL (0.01-0.20); Immature Granulocytes % (auto) 0.2 %; Lymphocytes # (auto) 2.14 K/uL (1.20-3.40); Lymphocytes % (auto) 37.9 %; Mean Corpuscular Hgb Conc 33.9 g/dL (32.0-36.0); Mean Corpuscular Volume 88.3 fL (80.0-100.0); Mean Platelet Volume 9.6 fL (9.4-12.4); Monocytes # (auto) 0.36 K/uL (0.11-0.59); Monocytes % (auto) 6.4 %; Neutrophils # (auto) 2.85 K/uL (1.40-6.50); Neutrophils % (auto) 50.3 %; Platelet Count 201 K/uL (130-400); RDW Coefficient of Variation 12.2 % (11.5-14.5); RDW Standard Deviation 39.5 fL (36.4-46.3); Red Blood Count 3.17 M/uL (4.20-5.40); White Blood Count 5.65 K/ul (4.8-10.8)
[2023-07-10 06:34] LABS: Appearance Urine Clear (Clear); Bacteria Urine Automated None Seen (None Seen); Bilirubin Urine Negative (Negative); Blood Urine Trace (Negative); Cast Urine Automated 0-2 /lpf (0-2); Color Urine Yellow; Glucose Urine UA Negative (Negative); Ketones Urine Negative (Negative); Leukocyte Esterase Urine Trace (Negative); Nitrite Urine Negative (Negative); Protein Urine Negative (Negative); Specific Gravity Urine 1.017 (1.000-1.030); Urobilinogen Urine Negative (Negative); WBC Urine Automated 0-5 /hpf (0-5)
[2023-07-10 06:52] LABS: Albumin Globulin Ratio 1.6 (0.9-2); Albumin Level 3.3 gm/dl (3.4-5.0); BUN Creatinine Ratio 17.9 (10-20); Bilirubin,Total 0.4 mg/dl (0.2-1.0); Calcium 8.5 mg/dl (8.6-10.3); Creatinine Clr Calc Pharmacy 127.3 ml/min; Est GFR (African American) 133.3 ml/min; Globulin 2.1 gm/dl (2.5-4.0); Potassium 3.7 mmol/L (3.5-5.1); Total Protein 5.4 gm/dl (6.0-8.3)
--- OUTSIDE RECORDS SUMMARY | 2023-07-10 06:55 | External Medical Summary | Summary of Care ---
Author Name Unknown Organization [facility] Address [address] [place] [address] Phone [phone] Care Team Providers Care Passenger Car Conductor Name Role Phone Steffi Zamudio MD Primary Care Provider [phone] Reason for Visit * Reason Onset Date Comments Appointment 07/09/2023 Med Request 07/09/2023 Encounter Details Date Type Department Care Team (Late st Contact Info) Description 07/09/2023 Telephone General Surgery, [facility] [address] [place] [address] Services, Scheduling [address] [place] [address] Appointment; Med Request Allergies Active Allergy Reactions Criticality Noted Date Comments Adhesive Tape Rash 03/23/2021 Band-aides -rash Gluten Rash 07/12/2012 Celiac disease documented as of this encounter (statuses as of 07/09/2023) Medications Medication Sig Dispensed Refills Start Date [...] once daily 90 Tablet 3 06/12/2023 Active oxyCODONE-Acetaminop hen 5-325 MG Oral Tablet (Percocet) Take 1 Tablet by mouth every 4 hours as needed for Pain, Severe. 15 Tablet 0 07/07/2023 Active traMADol HCl 50 MG Oral Tablet (Ultram) Take 1 Tablet by mouth every 6 hours as needed for Pain, Moderate. 30 Tablet 0 07/07/2023 Active Hospital, Clinic, or Other Facility Administered Medication Ordered Dose Route Frequency Start Date End Date Status vitamin b-12 (Cyanocobalamin) inj 1,000 mcgIndications:Intestinal postoperative nonabsorption 1000 mcg IM [id number] 06/07/2023 08/01/19 25 Active documented as of this encounter (statuses as of 07/09/2023) Active Problems Problem Noted Date Diagnosed Date [...] CDH1, CDK4, CDKN1B, CDKN1C, CDKN2A (p14ARF), CDKN2A ([id number]), CEBPA, CHEK2, CTNNA1, DICER1, DIS3L2, EGFR, EPCAM, FH, FLCN, GATA2, GPC3, GREM1, HOXB13, HRAS, KIT, MAX, MEN1, MET, MITF, MLH1, MSH2, MSH3, MSH6, MUTYH, NBN, NF1, NF2, NTHL1, PALB2, PDGFRA, PHOX2B, PMS2, POLD1, POLE, POT1, TOZPY6F, PTCH1, PTEN, RAD50, RAD51C, RAD51D, RB1, RECQL4, RET, RUNX1, SDHA, SDHAF2, SDHB, SDHC, SDHD, SMAD4, SMARCA4, SMARCB1, SMARCE1, STK11, SUFU, TERC, TERT, EAUD356, TP53, TSC1, TSC2, VHL, WRN, WT1 Status [...] as of this encounter (statuses as of 07/09/2023) Resolved Problems Problem Noted Date Diagnosed Date [...] consult Pt planning [place] [facility] [place]. For patients with previous myomectomy involving [...] of myomectomy. Scheduled for [place]/25/15 at [facility] History of prior w ith short cervix, [...] a previous infection. MF EFW = 1487 10/18 (<3%) Reviewed the need for twice weekly [...] as of this encounter (statuses as of 07/09/2023) Immunizations Name Administration Dates Next Due Pneumococcal [...] Miscellaneous Notes * Telephone Encounter - Carey Pelletier OSA - 07/09/2023 11:37 AM EDT Pt also wanted to note and let someone know that ever since her surgery she has been having blurredvision. * Telephone Encounter - Carey Pelletier OSA - 07/09/2023 11:34 AM EDT Pt calling to schedule for drain removal, she also has several questions she would like to speak with Dr. Kendrick about. Pt also wondering if she could get a refill on her pain meds. Not available on warm transfer. Please contact pt documented in this encounter Plan of Treatment Upcoming Encounters Date Type Department Care Team (Late st Contact Info) Description 07/25/2023 4:30 PM EDT Office Visit Gynecology/Obstetric s [facility] [address] [address] Tamiko Baker MD [address] [address] 08/09/2023 2:00 PM EDT Office Visit Nutrition & Weight Management, [facility] [address] [place] [address] Joan Bright PA-C [address] [place] [address] 10/05/2023 1:30 PM EDT Office Visit Dermatology [facility] [address] [facility] [place] [address] Duane Perez MD [address] [facility] [place] [address] 10/25/2023 2:00 PM EDT Office Visit General Internal Medicine [facility] [address] [place] [address] Steffi Zamudio MD [address] [facility] [place] [address] 03/07/2024 11:00 AM EST Telemedicine Hematology Oncology [facility] [address] [place] [address] Malignancy, Multidisciplinary Clinic [facility] [address] [place] [address] 05/16/2024 1:30 PM EST Office Visit Dermatology [facility] [address] [facility] [place] [address] Duane Perez MD [address] [facility] [place] [address] Scheduled Procedures Name Priority Associated Diagnoses Date/Ti [...] and were consensually agreed upon. Care Teams Passenger Car Conductor Relationship Specialty Start Date End Date Steffi Zamudio MD [address] [facility] [place] [address] PCP - General Internal Medicine 05/04/11 documented as of this encounter
--- OUTSIDE RECORDS SUMMARY | 2023-07-10 06:55 | External Medical Summary | Summary of Care ---
Author Name Unknown Organization [facility] Address [address] [place] [address] Phone [phone] Care Team Providers Care Product Demonstrator Name Role Phone Steffi Zamudio MD Primary Care Provider [phone] Reason for Visit * Reason Onset Date Comments Appointment 07/09/2023 Med Request 07/09/2023 Encounter Details Date Type Department Care Team (Late st Contact Info) Description 07/09/2023 Telephone General Surgery, [facility] [address] [place] [address] Services, Scheduling [address] [place] [address] Appointment; Med Request Allergies Active Allergy Reactions [...] 1,000 mcgIndications:Intestinal postoperative nonabsorption 1000 mcg IM [id number] 06/07/2023 08/01/19 25 Active documented as of [...] CDH1, CDK4, CDKN1B, CDKN1C, CDKN2A (p14ARF), CDKN2A ([id number]), CEBPA, CHEK2, CTNNA1, DICER1, DIS3L2, EGFR, EPCAM, FH, FLCN, GATA2, GPC3, GREM1, HOXB13, HRAS, KIT, MAX, MEN1, MET, MITF, MLH1, MSH2, MSH3, MSH6, MUTYH, NBN, NF1, NF2, NTHL1, PALB2, PDGFRA, PHOX2B, PMS2, POLD1, POLE, POT1, HFHAM1F, PTCH1, PTEN, RAD50, RAD51C, RAD51D, RB1, RECQL4, RET, RUNX1, SDHA, SDHAF2, SDHB, SDHC, SDHD, SMAD4, SMARCA4, SMARCB1, SMARCE1, STK11, SUFU, TERC, TERT, [id number], TP53, TSC1, TSC2, VHL, WRN, WT1 Status [...] delivery at 36-37 weeks without amniocentesis per [employer]. Every effort [...] Gynecology/Obstetric s [facility] [address] [address] Tamiko Baker MD [address] [address] 08/09/2023 2:00 PM EDT Office Visit Nutrition & Weight Management, [facility] [address] [place] [address] Joan Bright PA-C [address] [place] [address] 10/05/2023 1:30 PM EDT Office Visit Dermatology [facility] [address] [facility] [place] [address] Duane Perez MD 200 [facility] [place] [address] 10/25/2023 2:00 PM EDT Office Visit General Internal Medicine [facility] [address] [place] [address] Steffi Zamudio MD 200 [facility] [place] [address] 03/07/2024 11:00 AM EST Telemedicine Hematology Oncology [facility] [address] [place] [address] Malignancy, Multidisciplinary Clinic High Risk Gi [address] [place] [address] 05/16/2024 1:30 PM EST Office Visit Dermatology [facility] [address] [facility] [place] [address] Duane Perez MD 200 [facility] [place] [address] Scheduled Procedures Name Priority Associated Diagnoses Date/Ti [...] were consensually agreed upon. Care Teams Product Demonstrator Relationship Specialty Start Date End Date Steffi Zamudio MD [address] [facility] [place] [address] PCP - General Internal Medicine 05/04/11 documented as of this encounter
--- OUTSIDE RECORDS SUMMARY | 2023-07-10 06:55 | External Medical Summary | Summary of Care ---
Author Name Unknown Organization [facility] Address [address] [place] [address] Phone [phone] Care Team Providers Care Project Manager Senior Name Role Phone Steffi Zamudio MD Primary Care Provider [phone] Reason for Visit * Reason Onset Date Comments Appointment 07/09/2023 Med Request 07/09/2023 Encounter Details Date Type Department Care Team (Late st Contact Info) Description 07/09/2023 Telephone General Surgery, [facility] [address] [place] [address] Services, Scheduling [address] [place] [address] Appointment; Med Request Allergies Active Allergy Reactions [...] 1,000 mcgIndications:Intestinal postoperative nonabsorption 1000 mcg IM [id number] 06/07/2023 08/01/19 25 Active documented as of [...] Test Ordered: Multi-Cancer Panel at [facility] (84 genes) Genes Included: AIP, ALK, APC, PATTY, AXIN2, BAP1, BARD1, BLM, BMPR1A, BRCA1, BRCA2, BRIP1, CASR, CDC73, CDH1, CDK4, CDKN1B, CDKN1C, CDKN2A (p14ARF), CDKN2A ([id number]), CEBPA, CHEK2, CTNNA1, DICER1, DIS3L2, EGFR, EPCAM, FH, FLCN, GATA2, GPC3, GREM1, HOXB13, HRAS, KIT, MAX, MEN1, MET, MITF, MLH1, MSH2, MSH3, MSH6, MUTYH, NBN, NF1, NF2, NTHL1, PALB2, PDGFRA, PHOX2B, PMS2, POLD1, POLE, POT1, SRHTL5B, PTCH1, PTEN, RAD50, RAD51C, RAD51D, RB1, RECQL4, RET, RUNX1, SDHA, SDHAF2, SDHB, SDHC, SDHD, SMAD4, SMARCA4, SMARCB1, SMARCE1, STK11, SUFU, TERC, TERT, [id number], TP53, TSC1, TSC2, VHL, WRN, WT1 Status [...] consult Pt planning repeat c/s at [facility] 1. For patients with [...] delivery at 36-37 weeks without amniocentesis per [employer]. Every effort [...] of myomectomy. Scheduled for 06/25/15 at [facility] History of prior w [...] Gynecology/Obstetric s [facility] [address] [address] Tamiko Baker MD [address] [place] [address] [address] 08/09/2023 2:00 PM EDT Office Visit Nutrition & Weight Management, [facility] [address] [place] [address] Joan Bright PA-C [address] [place] [address] 10/05/2023 1:30 PM EDT Office Visit Dermatology [facility] [place] [address] Duane Perez MD 200 [facility] [place] [address] 10/25/2023 2:00 PM EDT Office Visit General Internal Medicine [facility] [address] [place] [address] Steffi Zamudio MD 200 [facility] [place] [address] 03/07/2024 11:00 AM EST Telemedicine Hematology Oncology [facility] [address] [place] [address] Malignancy, Multidisciplinary Clinic High Risk [facility] [address] [place] [address] 05/16/2024 1:30 PM EST Office Visit Dermatology [facility] [place] [address] Duane Perez MD 200 [facility] [place] [address] Scheduled Procedures Name Priority Associated Diagnoses Date/Ti [...] and were consensually agreed upon. Care Teams Project Manager Senior Relationship Specialty Start Date End Date Steffi Zamudio MD 200 [facility] [place] [address] PCP - General Internal Medicine 05/04/11 documented as of this encounter
--- OUTSIDE RECORDS SUMMARY | 2023-07-10 06:55 | External Medical Summary | Summary of Care ---
Author Name Unknown Organization [facility] Address [address] [place] [address] Phone [phone] Care Team Providers Care Curriculum And Assessment Coordinator Name Role Phone Steffi Zamudio MD Primary Care Provider [phone] Reason for Visit * Reason Onset Date Comments Appointment 07/09/2023 Med Request 07/09/2023 Encounter Details Date Type Department Care Team (Late st Contact Info) Description 07/09/2023 Telephone General Surgery, [facility] [address] [place] [address] Services, Scheduling [address] [place] [address] Appointment; Med Request Allergies Active Allergy Reactions [...] 1,000 mcgIndications:Intestinal postoperative nonabsorption 1000 mcg IM [id number] 06/07/2023 08/01/19 25 Active documented as of this encounter (statuses as of 07/09/2023) Active Problems Problem Noted Date Diagnosed Date Class 1 obesity due to excess calories in adult 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 Overview: Genetic Testing Completed 08/30/2022: Test Result: POSITIVE Gene: PMS2 Variant: Deletion (Exons 12-14) ClinVarID: None This result is consistent with Jackson syndrome Test Ordered: Multi-Cancer Panel at [facility] (84 genes) Genes Included: AIP, ALK, APC, PATTY, AXIN2, BAP1, BARD1, BLM, BMPR1A, BRCA1, BRCA2, BRIP1, CASR, CDC73, CDH1, CDK4, CDKN1B, CDKN1C, CDKN2A (p14ARF), CDKN2A ([id number]), CEBPA, CHEK2, CTNNA1, DICER1, DIS3L2, EGFR, EPCAM, FH, FLCN, GATA2, GPC3, GREM1, HOXB13, HRAS, KIT, MAX, MEN1, MET, MITF, MLH1, MSH2, MSH3, MSH6, MUTYH, NBN, NF1, NF2, NTHL1, PALB2, PDGFRA, PHOX2B, PMS2, POLD1, POLE, POT1, QCUKN5K, PTCH1, PTEN, RAD50, RAD51C, RAD51D, RB1, RECQL4, RET, RUNX1, SDHA, SDHAF2, SDHB, SDHC, SDHD, SMAD4, SMARCA4, SMARCB1, SMARCE1, STK11, SUFU, TERC, TERT, [id number], TP53, TSC1, TSC2, VHL, WRN, WT1 Status [...] consult Pt planning repeat c/s at [facility] 1. For patients with [...] 36-37 weeks without amniocentesis per [employer]. Every effort [...] of myomectomy. Scheduled for 06/25/15 at [facility] History of prior w [...] Tdap Vaccinedeferred Pt given VIS(vaccine information sheet) Tarng Leung RN Family history of diabetes mellitus [...] Gynecology/Obstetric s Carly Connors [address] [address] Tamiko Baker MD [address] [address] 08/09/2023 2:00 PM EDT Office Visit Nutrition & Weight Management, [facility] [address] [place] [address] Joan Bright PA-C [address] [place] [address] 10/05/2023 1:30 PM EDT Office Visit [facility]ology [facility] [place] [address] Duane Perez MD 200 [facility] [place] [address] 10/25/2023 2:00 PM EDT Office Visit General Internal Medicine [facility] [address] [place] [address] Steffi Zamudio MD 200 [facility] [place] [address] 03/07/2024 11:00 AM EST Telemedicine Hematology Oncology [facility] [address] [place] [address] Malignancy, Multidisciplinary Clinic High Risk Gi [address] [place] [address] 05/16/2024 1:30 PM EST Office Visit Dermatology [facility] [place] [address] Duane Perez MD 200 [facility] [place] [address] Scheduled Procedures Name Priority Associated Diagnoses Date/Ti [...] and were consensually agreed upon. Care Teams Curriculum And Assessment Coordinator Relationship Specialty Start Date End Date Steffi Zamudio MD 200 [facility] [place] [address] PCP - General Internal Medicine 05/04/11 documented as of this encounter
[2023-07-10] MEDS: POLYETHYLENE (MIRALAX) 17 GM PACK PO PRN (07:39)
[2023-07-10] MEDS: cephALEXin 500 MG CAP PO SCH (07:39)
[2023-07-10] MEDS: SIMETHICONE 80 MG CHEW PO SCH (07:39)
[2023-07-10] MEDS: buPROPion SR 100 MG TABCR PO SCH (07:41)
[2023-07-10] MEDS: NYSTATIN POWDER 15GM BTL EXT SCH (07:42)
--- OUTSIDE RECORDS SUMMARY | 2023-07-10 08:24 | External Medical Summary | Summary of Care ---
Author Name Unknown Organization [facility] Address [address] [place] [address] Phone [phone] Care Team Providers Care Oil Winterizer Name Role Phone Steffi Zamudio MD Primary Care Provider [phone] Reason for Visit * Reason Onset Date Comments Appointment 07/09/2023 Med Request 07/09/2023 Encounter Details Date Type Department Care Team (Late st Contact Info) Description 07/09/2023 Telephone General Surgery, [facility] [address] [place] [address] Services, Scheduling [address] [place] [address] Appointment; Med Request Allergies Active Allergy Reactions [...] 1,000 mcgIndications:Intestinal postoperative nonabsorption 1000 mcg IM [id number] 06/07/2023 08/01/19 25 Active documented as of [...] syndrome Test Ordered: Multi-Cancer Panel at [facility] (84 genes) Genes Included: AIP, ALK, APC, PATTY, AXIN2, BAP1, BARD1, BLM, BMPR1A, BRCA1, BRCA2, BRIP1, CASR, CDC73, CDH1, CDK4, CDKN1B, CDKN1C, CDKN2A (p14ARF), CDKN2A (e53CRN0d), CEBPA, CHEK2, CTNNA1, DICER1, DIS3L2, EGFR, EPCAM, FH, FLCN, GATA2, GPC3, GREM1, HOXB13, HRAS, KIT, MAX, MEN1, MET, MITF, MLH1, MSH2, MSH3, MSH6, MUTYH, NBN, NF1, NF2, NTHL1, PALB2, PDGFRA, PHOX2B, PMS2, POLD1, POLE, POT1, PWMZC0P, PTCH1, PTEN, RAD50, RAD51C, RAD51D, RB1, RECQL4, RET, RUNX1, SDHA, SDHAF2, SDHB, SDHC, SDHD, SMAD4, SMARCA4, SMARCB1, SMARCE1, STK11, SUFU, TERC, TERT, [id number], TP53, TSC1, TSC2, VHL, WRN, WT1 Status [...] delivery at 36-37 weeks without amniocentesis per [employer]. Every effort [...] affecting 10/11/2012 11/20/2012 Overview: Vag progesterone QD- twaanna Kennedy md 11/08/12 (23w1d): Given the 6mm [...] Telephone Encounter - Barbara Pro LPN - 07/09/2023 1:52 PM EDT left message for patient to call office * Telephone Encounter - Tamiko Baker MD - 07/09/2023 1:51 PM EDT Please contact Patient to discuss pain meds. She was discharge yesterday 07/07. Patient was prescribed tylenol, tramadol, and Oxy. Did she finish all the medication in 24 hours? Thanks, Dr. Bowman * Telephone Encounter - Kelsy Velasco LPN - 07/09/2023 1:37 PM EDT Patient would like some more pain medication, She sent a message in and I left a message that sinceyou prescribed them I would message you. She did say she was getting blurred vision which I said could be from the narcotics. * Telephone Encounter - Kelsy Velasco LPN - 07/09/2023 1:34 PM EDT Left a message to tell her that she could call back and I could try and answer questions she had, dr Kendrick is in [facility] doing surgery. I told her that she would have to get her pain meds from Dr Baker since she was the one that had prescribed them. I said that I would send a message to her. I also said that that the blurred vision could come from the narcotics. * Telephone Encounter - Carey Pelletier OSA [...] 4:30 PM EDT [facility] [address] [address] Tamiko Baker MD [address] [address] 08/09/2023 2:00 PM EDT Office Visit Nutrition & Weight Management, [facility] [address] [address] Joan Bright PA-C [address] [place] [address] 10/05/2023 1:30 PM EDT Office Visit Dermatology [facility] [address] [place] [address] Duane Perez MD 200 [facility] [place] [address] 10/25/2023 2:00 PM EDT Office Visit General Internal Medicine [facility] [place] [address] [place] [address] Steffi Zamudio MD 200 [facility] [place] [address] 03/07/2024 11:00 AM EST Telemedicine Hematology Oncology [facility] [address] [place] [address] Malignancy, Multidisciplinary Clinic High Risk Gi [address] [place] [address] 05/16/2024 1:30 PM EST Office Visit [facility] [place] [address] [place] [address] Duane Perez MD 200 [facility] [place] [address] Scheduled Procedures Name Priority Associated Diagnoses Date/Ti [...] and were consensually agreed upon. Care Teams Oil Winterizer Relationship Specialty Start Date End Date Steffi Zamudio MD 200 [place] [address] PCP - General Internal Medicine 05/04/11 documented as of this encounter
--- OUTSIDE RECORDS SUMMARY | 2023-07-10 08:24 | External Medical Summary | Summary of Care ---
Author Name Unknown Organization [facility] Address [address] [place] [address] Phone [phone] Care Team Providers Care Community Health Nursing Director Name Role Phone Steffi Zamudio MD Primary Care Provider [phone] Reason for Visit * Reason Onset Date Comments Appointment 07/09/2023 Med Request 07/09/2023 Encounter Details Date Type Department Care Team (Late st Contact Info) Description 07/09/2023 Telephone General Surgery, [facility] [address] [place] [address] Services, Scheduling [address] [place] [address] Appointment; Med Request Allergies Active Allergy Reactions [...] 1,000 mcgIndications:Intestinal postoperative nonabsorption 1000 mcg IM [id number] 06/07/2023 08/01/19 25 Active documented as of [...] CDH1, CDK4, CDKN1B, CDKN1C, CDKN2A (p14ARF), CDKN2A (z36JJV8b), CEBPA, CHEK2, CTNNA1, DICER1, DIS3L2, EGFR, EPCAM, FH, FLCN, GATA2, GPC3, GREM1, HOXB13, HRAS, KIT, MAX, MEN1, MET, MITF, MLH1, MSH2, MSH3, MSH6, MUTYH, NBN, NF1, NF2, NTHL1, PALB2, PDGFRA, PHOX2B, PMS2, POLD1, POLE, POT1, [id number], PTCH1, PTEN, RAD50, RAD51C, RAD51D, RB1, RECQL4, RET, RUNX1, SDHA, SDHAF2, SDHB, SDHC, SDHD, SMAD4, SMARCA4, SMARCB1, SMARCE1, STK11, SUFU, TERC, TERT, [id number], TP53, TSC1, TSC2, VHL, WRN, WT1 Status [...] delivery at 36-37 weeks without amniocentesis per [employer]. Every effort [...] the narcotics. * Telephone Encounter - Kelsy Velacso LPN - 07/09/2023 1:34 PM EDT Left a message to tell her that she could call back and I could try and answer questions she had, dr Kendrick is in [facility] doing surgery. I told her that she [...] 4:30 PM EDT Office Visit Gynecology/Obstetric s [facility] [address] [address] Tamiko Baker MD [address] [place] [address] [address] 08/09/2023 2:00 PM EDT Office Visit Nutrition & Weight Management, [facility] [address] [address] Joan Bright PA-C [address] [place] [address] [address] 10/05/2023 1:30 PM EDT Office Visit Dermatology [facility] [address] [place] [address] Duane Perez MD [address] [place] [address] 10/25/2023 2:00 PM EDT Office Visit General Internal Medicine [facility] [place] 200 [facility] [address] [place], [place] [address] Steffi Zamudio MD 200 [facility] [address] [place], [place] [address] 03/07/2024 11:00 AM EST Telemedicine Hematology Oncology [facility] [address] [place] [address] Malignancy, Multidisciplinary Clinic High Risk Gi [address] [place] [address] 05/16/2024 1:30 PM EST Office Visit Dermatology [facility] [place] 200 [facility] [place] [address] Duane Perez MD 200 [facility] [address] [place], [place] [address] Scheduled Procedures Name Priority Associated Diagnoses Date/Ti me COLONOSCOPY FLEXIBLE PROXIMAL DIAGNOSTIC Recall PMS2-related Jackson syndrome (HNPCC4) ESOPHAGOGASTRODUODENOSCOPY ( EGD), FLEXIBLE, TRANSORAL, DIAGNOSTIC Recall PMS2-related Jackson syndrome (HNPCC4) Health Maintenance Due Date Last Done Comments Hepatitis B (1 of 3 - 19+ 3-dose series) 11/28/1999 HPV/Co-Test 2010 COVID-19 Vaccine ( - 2022- season) 2022 Influenza Vaccine (FLU shot) (Season [...] and were consensually agreed upon. Care Teams Community Health Nursing Director Relationship Specialty Start Date End Date Steffi Zamudio MD 200 [facility] [place] [address] PCP - General Internal Medicine 05/04/11 documented as of this encounter
--- OUTSIDE RECORDS SUMMARY | 2023-07-10 08:24 | External Medical Summary | Summary of Care ---
Author Name Unknown Organization [facility] Address [address] [place] [address] Phone [phone] Care Team Providers Care Hydraulics Teacher Name Role Phone Steffi Zamudio MD Primary Care Provider [phone] Reason for Visit * Reason Onset Date Comments Appointment 07/09/2023 Med Request 07/09/2023 Encounter Details Date Type Department Care Team (Late st Contact Info) Description 07/09/2023 Telephone General Surgery, [facility] [address] [place] [address] Services, Scheduling [address] [place] [address] Appointment; Med Request Allergies Active Allergy Reactions [...] 1,000 mcgIndications:Intestinal postoperative nonabsorption 1000 mcg IM [id number] 06/07/2023 08/01/19 25 Active documented as of [...] Ordered: Multi-Cancer Panel at [facility] (84 genes) Genes Included: AIP, ALK, APC, PATTY, AXIN2, BAP1, BARD1, BLM, BMPR1A, BRCA1, BRCA2, BRIP1, CASR, CDC73, CDH1, CDK4, CDKN1B, CDKN1C, CDKN2A (p14ARF), CDKN2A (r61LRM4k), CEBPA, CHEK2, CTNNA1, DICER1, DIS3L2, EGFR, EPCAM, FH, FLCN, GATA2, GPC3, GREM1, HOXB13, HRAS, KIT, MAX, MEN1, MET, MITF, MLH1, MSH2, MSH3, MSH6, MUTYH, NBN, NF1, NF2, NTHL1, PALB2, PDGFRA, PHOX2B, PMS2, POLD1, POLE, POT1, RZGVS0A, PTCH1, PTEN, RAD50, RAD51C, RAD51D, RB1, RECQL4, RET, RUNX1, SDHA, SDHAF2, SDHB, SDHC, SDHD, SMAD4, SMARCA4, SMARCB1, SMARCE1, STK11, SUFU, TERC, TERT, [id number], TP53, TSC1, TSC2, VHL, WRN, WT1 Status [...] delivery at 36-37 weeks without amniocentesis per [employer]. Every effort [...] BRET contaminated Patient given flu vaccine. 12/10/2012 iVta Bundy RN 12/17/2012 Tdap Vaccinedeferred Pt given [...] Encounter - Barbara Pro LPN - 07/09/2023 2:05 PM EDT Spoke with Jimbo at [facility]. She was able to get Percocet Rx but Tramadol requires PA due to insurance only covering 1 opoid in a 6 month period. PA sent. * Telephone Encounter - Barbara Pro LPN [...] questions she had, dr Kendrick is in [facility] doing surgery. I told her that she [...] 07/25/2023 4:30 PM EDT Office Visit Gynecology/Obstetric [facility] 132 [facility] [place] [address] Tamiko Baker MD [address] [place] [address] 08/09/2023 2:00 PM EDT Office Visit Nutrition & Weight Management, [facility] [address] [place] [address] Joan Bright PA-C [facility] [place] [address] 10/05/2023 1:30 PM EDT Office Visit Dermatology [facility] [address] [facility] [address] [place] [address] Duane Perez MD 200 [facility] [place] [address] 10/25/2023 2:00 PM EDT Office Visit General Internal Medicine [facility] 200 [facility] [place] [address] Steffi Zamudio MD 200 [facility] [place] [address] 03/07/2024 11:00 AM EST Telemedicine Hematology Oncology [facility] [address] [place] [address] Malignancy, Multidisciplinary Clinic High Risk Gi [address] [place] [address] 05/16/2024 1:30 PM EST Office Visit Dermatology [facility] 200 [facility] [place] [address] Duane Perez MD 200 [facility] [place] [address] Scheduled Procedures Name Priority Associated Diagnoses Date/Ti [...] and were consensually agreed upon. Care Teams Hydraulics Teacher Relationship Specialty Start Date End Date Steffi Zamudio MD 200 [place] [address] PCP - General Internal Medicine 05/04/11 documented as of this encounter
--- OUTSIDE RECORDS SUMMARY | 2023-07-10 08:24 | External Medical Summary | Summary of Care ---
Author Name Unknown Organization [facility] Address [address] [place] [address] Phone [phone] Care Team Providers Care Airplane Patroller Name Role Phone Steffi Zamudio MD Primary Care Provider [phone] Reason for Visit * Reason Onset Date Comments Appointment 07/09/2023 Med Request 07/09/2023 Encounter Details Date Type Department Care Team (Late st Contact Info) Description 07/09/2023 Telephone General Surgery, [facility] [address] [place] [address] Services, Scheduling [address] [place] [address] Appointment; Med Request Allergies Active Allergy Reactions [...] 06/02/2021 Active LORazepam 0.5 MG Oral Tablet (Ativan)Indicatio [...] 5 04/17/2022 Active Dapsone 5 % External GelIndications:Ac ne vulgaris Apply to acne on face and chest 60 g 2 04/09/2023 Active buPROPion HCl ER (XL) 150 MG Oral Tablet Extended Release 24 Hour (Wellbutrin XL)Indications:Mi xed emotional features as adjustment reaction TAKE 1 [...] once daily 90 Tablet 3 06/12/2023 Active oxyCODONE-Acetami nophen 5-325 MG Oral Tablet (Percocet) Take 1 Tablet by mouth every 4 hours as needed for Pain, Severe. 15 Tablet 0 07/07/2023 Active traMADol HCl 50 MG Oral Tablet (Ultram) Take 1 Tablet by mouth every 6 hours as needed for Pain, Moderate. 30 Tablet 0 07/07/2023 Active Acetaminophen 500 MG Oral Tablet (Tylenol) Take 2 Tablets by mouth every 8 hours as needed for Pain, Moderate. 60 Tablet 1 07/09/2023 Active Acetaminophen 325 MG Oral Tablet (Tylenol) Take 2 Tablets by mouth every 6 hours as needed for Pain, Mild. 30 Tablet 1 05/23/2023 07/09/2023 Discontinued (Patient preference/d iscontinuati on) Hospital, Clinic, or Other Facility Administered Medication Ordered Dose Route Frequency Start Date End Date Status vitamin b-12 (Cyanocobalamin) inj 1,000 mcgIndications:Intestinal postoperative nonabsorption 1000 mcg IM [id number] 06/07/2023 08/01/19 25 Active documented as of [...] syndrome Test Ordered: Multi-Cancer Panel at [facility] (84 genes) Genes Included: AIP, ALK, APC, PATTY, AXIN2, BAP1, BARD1, BLM, BMPR1A, BRCA1, BRCA2, BRIP1, CASR, CDC73, CDH1, CDK4, CDKN1B, CDKN1C, CDKN2A (p14ARF), CDKN2A (m34EPD5d), CEBPA, CHEK2, CTNNA1, DICER1, DIS3L2, EGFR, EPCAM, FH, FLCN, GATA2, GPC3, GREM1, HOXB13, HRAS, KIT, MAX, MEN1, MET, MITF, MLH1, MSH2, MSH3, MSH6, MUTYH, NBN, NF1, NF2, NTHL1, PALB2, PDGFRA, PHOX2B, PMS2, POLD1, POLE, POT1, YMUWH0U, PTCH1, PTEN, RAD50, RAD51C, RAD51D, RB1, RECQL4, RET, RUNX1, SDHA, SDHAF2, SDHB, SDHC, SDHD, SMAD4, SMARCA4, SMARCB1, SMARCE1, STK11, SUFU, TERC, TERT, UHAH010, TP53, TSC1, TSC2, VHL, WRN, WT1 Status [...] delivery at 36-37 weeks without amniocentesis per [employer]. Every effort [...] indicate that she had a previous infection. [facility] EFW = 1487 01/10 (<3%) Reviewed the [...] this could be arranged. Rh negative, antepartum 07/15/2012/0 09/2015 Overview: Rhogam candidate Rhogam given 04/26/2015 [...] encounter Miscellaneous Notes * Addendum Note - Tamiko Baker MD - 07/09/2023 3:04 PM EDTAddended by: TAMIKO BAKER on: 07/09/2023 03:04 PM Modules accepted: Orders * Telephone Encounter - Tamiko Baker MD - 07/09/2023 3:02 PM EDT Patient can take 2 tylenol ES every 8 hours in a 24 hour period. Recommend not to exceed 3000 mg per day. Rx sent to Patient's pharmacy. * Telephone Encounter - Ruthann Pelayo LPN - 07/09/2023 2:30 PM EDT Pt is calling in asking why she is not able to cone picker the prescription from the pharmacy, states she picked up the oxycodone from [email or web address] but she knows she has percocet and they will not give it to her. Advised to pt multiple times that this was the same drug and since this was already picked up from 07/07/2023 her insurance company would not allow her to cone picker the tramadol that was also sent in. States she is going to be out of the medication she already picked up by tomorrow morning and she is in a lot of pain without the medication and wants the tramadol ayad. Advised that the PA was sent off and we would be in touch as soon as we hear back. Advised in the meantime to take tylenol and ibuprofen alternating every 4-6 hours for the pain and she states she has GI surgery and is not able to take ibuprofen and tylenol doesn't really do anything for her so she is wanting to know if she can take an increased dose of tylenol to see if it is helpful for her. Advised I would reach out to her provider to see what dosage of tylenol that would be recommended. Please review and advise. Ruthann Pelayo LPN * Telephone Encounter - Barbara Pro LPN - 07/09/2023 2:05 PM EDT Spoke with Jimbo at [facility]. She was able to get Percocet Rx [...] questions she had, dr Kendrick is in [facility] doing surgery. I told her that she [...] Upcoming Encounters Date Type Department Care Team (Alana Contact Info) Description 07/25/2023 4:30 PM EDT Office Visit Gynecology/Obstetric s [facility] [address] [facility] [place] [address] Tamiko Baker MD [facility] [place] [address] 08/09/2023 2:00 PM EDT Office Visit Nutrition & Weight Management, [facility] [place] [address] Joan Bright PA-C 132 [place] [address] 10/05/2023 1:30 PM EDT Office Visit Dermatology [facility] [address] [place] [address] Duane Perez MD 200 [facility] [place] [address] 10/25/2023 2:00 PM EDT Office Visit General Internal Medicine [facility] [address] [place] [address] Steffi Zamudio MD 200 [facility] [place] [address] 03/07/2024 11:00 AM EST Telemedicine Hematology Oncology [facility] [address] [place] [address] Malignancy, Multidisciplinary Clinic High Risk Gi [address] [place] [address] 05/16/2024 1:30 PM EST [facility] [place] [address] [place] [address] Duane Perez MD [address] [place] [address] Scheduled Procedures Name Priority Associated Diagnoses Date/Ti me COLONOSCOPY FLEXIBLE PROXIMAL DIAGNOSTIC Recall PMS2-related Jackson syndrome (HNPCC4) ESOPHAGOGASTRODUODENOSCOPY ( EGD), FLEXIBLE, TRANSORAL, DIAGNOSTIC Recall PMS2-related Jackson syndrome (HNPCC4) Health Maintenance Due Date Last Done Comments Hepatitis B (1 of 3 - 19+ 3-dose series) 11/28/1999 HPV/Co-Test 2010 COVID-19 Vaccine (24 season) 2022 Influenza Vaccine (FLU shot) (Season [...] and were consensually agreed upon. Care Teams Airplane Patroller Relationship Specialty Start Date End Date Steffi Zamudio MD [address] [place] [address] [place] [address] PCP - General Internal Medicine 05/04/11 documented as of this encounter
--- OUTSIDE RECORDS SUMMARY | 2023-07-10 08:24 | External Medical Summary | Summary of Care ---
Author Name Unknown Organization [facility] Address [address] [place] [address] Phone [phone] Care Team Providers Care Primary Products Inspectors Name Role Phone Steffi Zamudio MD Primary Care Provider [phone] Reason for Visit * Reason Onset Date Comments Appointment 07/09/2023 Med Request 07/09/2023 Encounter Details Date Type Department Care Team (Late st Contact Info) Description 07/09/2023 Telephone General Surgery, [facility] [address] [place] [address] Services, Scheduling [address] [place] [address] Appointment; Med Request Allergies Active Allergy Reactions [...] 1,000 mcgIndications:Intestinal postoperative nonabsorption 1000 mcg IM [id number] 06/07/2023 08/01/19 25 Active documented as of this encounter (statuses as of 07/09/2023) Active Problems Problem Noted Date Diagnosed Date Class 1 obesity due to excess calories in adult 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 Overview: Genetic Testing Completed 08/30/2022: Test Result: POSITIVE Gene: PMS2 Variant: Deletion (Exons 12-14) ClinVarID: None This result is consistent with Jackson syndrome Test Ordered: Multi-Cancer Panel at [facility] [place] (84 genes) Genes Included: AIP, ALK, APC, PATTY, AXIN2, BAP1, BARD1, BLM, BMPR1A, BRCA1, BRCA2, BRIP1, CASR, CDC73, CDH1, CDK4, CDKN1B, CDKN1C, CDKN2A (p14ARF), CDKN2A ([id number]), CEBPA, CHEK2, CTNNA1, DICER1, DIS3L2, EGFR, EPCAM, FH, FLCN, GATA2, GPC3, GREM1, HOXB13, HRAS, KIT, MAX, MEN1, MET, MITF, MLH1, MSH2, MSH3, MSH6, MUTYH, NBN, NF1, NF2, NTHL1, PALB2, PDGFRA, PHOX2B, PMS2, POLD1, POLE, POT1, VGLPC4A, PTCH1, PTEN, RAD50, RAD51C, RAD51D, RB1, RECQL4, RET, RUNX1, SDHA, SDHAF2, SDHB, SDHC, SDHD, SMAD4, SMARCA4, SMARCB1, SMARCE1, STK11, SUFU, TERC, TERT, IGAJ067, TP53, TSC1, TSC2, VHL, WRN, WT1 Status [...] MFM consult Pt planning repeat c/s at [facility]. For patients with previous myomectomy involving [...] history of myomectomy. 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 [...] 2:05 PM EDT Spoke with Jimbo at [facility]. She was able to get Percocet [...] questions she had, dr Kendrick is in [facility] doing surgery. I told her that she [...] Care Team (Late st Contact Info) Description 07/11/2023 1:30 PM EDT Nurse Only General Surgery, [facility] [address] [place] [address] [facility], Nurse Gen Surg [facility] [place] [address] [place] [address] 07/25/2023 4:30 PM EDT Office Visit Gynecology/Obstetric s [facility] [address] [place] [address] Tamiko Baker MD [address] [place] [address] 08/09/2023 2:00 PM EDT Office Visit Nutrition & Weight Management, [facility] [address] [place] [address] Joan Bright PA-C [address] [place] [phone] 10/05/2023 1:30 PM EDT Office Visit Dermatology [facility] [address] [place] [address] Duane Perez MD 200 [facility] [place] [address] 10/25/2023 2:00 PM EDT Office Visit General Internal Medicine [facility] [address] [place] [address] Steffi Zamudio MD 200 [facility] [place] [address] 03/07/2024 11:00 AM EST Telemedicine Hematology Oncology [facility] [place] [address] [facility] [place] [address] Malignancy, Multidisciplinary Clinic [facility] [address] [facility] [address] 05/16/2024 1:30 PM EST Office Visit Dermatology [facility] [place] [address] [facility] [place] [address] Duane Perez MD [address] [place] [address] Scheduled Procedures Name Priority Associated Diagnoses Date/Ti me COLONOSCOPY FLEXIBLE PROXIMAL DIAGNOSTIC Recall PMS2-related Jackson syndrome (HNPCC4) ESOPHAGOGASTRODUODENOSCOPY ( EGD), FLEXIBLE, TRANSORAL, DIAGNOSTIC Recall PMS2-related Jackson syndrome (HNPCC4) Health Maintenance Due Date Last Done Comments Hepatitis B (1 of 3 - 19+ 3-dose series) 11/28/1999 HPV/Co-Test 2010 COVID-19 Vaccine ( season) 2022 Influenza Vaccine (FLU shot) (Season [...] and were consensually agreed upon. Care Teams Primary Products Inspectors Relationship Specialty Start Date End Date Steffi Zamudio MD [address] [facility] [place] [address] PCP - General Internal Medicine 05/04/11 documented as of this encounter
--- OUTSIDE RECORDS SUMMARY | 2023-07-10 08:24 | External Medical Summary | Summary of Care ---
Author Name Unknown Organization [facility] Address [address] [facility] [place] [address] Phone [phone] Care Team Providers Care Cloth Mercerizer Back Tender Name Role Phone Steffi Zamudio MD Primary Care Provider [phone] Encounter Details Date Type Department Care Team (Late st Contact Info) Description 07/09/2023 Telephone Gynecology/Obstetrics [facility] [address] [place] [address] Tamiko Baker MD [address] [place] [address] Allergies Active Allergy Reactions Criticality Noted Date [...] 1,000 mcgIndications:Intestinal postoperative nonabsorption 1000 mcg IM [id number] 06/07/2023 08/01/19 25 Active documented as of this encounter (statuses as of 07/09/2023) Active Problems Problem Noted Date Diagnosed Date Class 1 obesity due to excess calories in adult 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 Overview: Genetic Testing Completed 08/30/2022: Test Result: POSITIVE Gene: PMS2 Variant: Deletion (Exons 12-14) ClinVarID: None This result is consistent with Jackson syndrome Test Ordered: Multi-Cancer Panel at [facility] (84 genes) Genes Included: AIP, ALK, APC, PATTY, AXIN2, BAP1, BARD1, BLM, BMPR1A, BRCA1, BRCA2, BRIP1, CASR, CDC73, CDH1, CDK4, CDKN1B, CDKN1C, CDKN2A (p14ARF), CDKN2A (e43EHJ5u), CEBPA, CHEK2, CTNNA1, DICER1, DIS3L2, EGFR, EPCAM, FH, FLCN, GATA2, GPC3, GREM1, HOXB13, HRAS, KIT, MAX, MEN1, MET, MITF, MLH1, MSH2, MSH3, MSH6, MUTYH, NBN, NF1, NF2, NTHL1, PALB2, PDGFRA, PHOX2B, PMS2, POLD1, POLE, POT1, OJJRO6C, PTCH1, PTEN, RAD50, RAD51C, RAD51D, RB1, RECQL4, RET, RUNX1, SDHA, SDHAF2, SDHB, SDHC, SDHD, SMAD4, SMARCA4, SMARCB1, SMARCE1, STK11, SUFU, TERC, TERT, BQIM951, TP53, TSC1, TSC2, VHL, WRN, WT1 Status [...] consult Pt planning repeat c/s at [facility] 1. For patients with previous myomectomy involving [...] of myomectomy. Scheduled for 06/25/15 at [facility] History of prior w ith short cervix, [...] Encounter - Barbara Pro LPN - 07/09/2023 2:06 PM EDT Women's Medicine Pre-Cert Request Medication/Disease State Information: Medication: traMADol HCl 50 MG Oral Tablet (Ultram) Take 1 Tablet by mouth every 6 hours as needed for Pain, Moderate Oral/Inhaler/Self-administered injection Medication- [place] p [id number] Diagnosis (including ICD-10): G89.18 post op pain Medication(s) Tried/Failed/Contraindicated: Unable to take ibuprofen due to hx of gastric bypass See corresponding visit note(s) for additional supporting clinical information. Office Information: Prescriber: Tamiko Baker MD documented in this encounter Plan of Treatment Upcoming Encounters Date Type Department Care Team (Late st Contact Info) Description 07/25/2023 4:30 PM EDT Office Visit Gynecology/Obstetric s [facility] [address] [place] [address] Tamiko Baker MD [address] [place] [address] 08/09/2023 2:00 PM EDT Office Visit Nutrition & Weight Management, [facility] [address] [place] [address] Joan Bright PA-C [address] [place] [address] 10/05/2023 1:30 PM EDT Office Visit Dermatology [facility] [address] [facility] [place] [address] Duane Perez MD 200 [facility] [place] [address] 10/25/2023 2:00 PM EDT Office Visit General Internal Medicine [facility] [address] [place] [address] Steffi Zamudio MD [address] [facility] [place] [address] 03/07/2024 11:00 AM EST Telemedicine Hematology Oncology [facility] [address] [place] [address] Malignancy, Multidisciplinary Clinic High Risk Gi [address] [place] [address] 05/16/2024 1:30 PM EST Office Visit Dermatology [facility] [address] [place] [address] Duane Perez MD [address] [facility] [place] [address] Scheduled Procedures Name Priority Associated Diagnoses Date/Ti me COLONOSCOPY FLEXIBLE PROXIMAL DIAGNOSTIC Recall PMS2-related Jackson syndrome (HNPCC4) ESOPHAGOGASTRODUODENOSCOPY ( EGD), FLEXIBLE, TRANSORAL, DIAGNOSTIC Recall PMS2-related Jackson syndrome (HNPCC4) Health Maintenance Due Date Last Done Comments Hepatitis B (1 of 3 - 19+ 3-dose series) 11/28/1999 HPV/Co-Test 2010 COVID-19 Vaccine (2022-24 season) 2022 Influenza Vaccine (FLU shot) (Season [...] and were consensually agreed upon. Care Teams Cloth Mercerizer Back Tender Relationship Specialty Start Date End Date Steffi Zamudio MD [address] [place] [address] PCP - General Internal Medicine 05/04/11 documented as of this encounter
--- OUTSIDE RECORDS SUMMARY | 2023-07-10 08:24 | External Medical Summary | Summary of Care ---
Author Name Unknown Organization [facility] Address [address] [place] [address] Phone [phone] Care Team Providers Care Jv Baseball Coach Name Role Phone Steffi Zamudio MD Primary Care Provider [phone] Reason for Visit * Reason Onset Date Comments Appointment 07/09/2023 Med Request 07/09/2023 Encounter Details Date Type Department Care Team (Late st Contact Info) Description 07/09/2023 Telephone General Surgery, [facility] [address] [place] [address] Services, Scheduling [address] [place] [address] Appointment; Med Request Allergies Active Allergy Reactions [...] 1,000 mcgIndications:Intestinal postoperative nonabsorption 1000 mcg IM [id number] 06/07/2023 08/01/19 25 Active documented as of [...] CDH1, CDK4, CDKN1B, CDKN1C, CDKN2A (p14ARF), CDKN2A (e37FUX0b), CEBPA, CHEK2, CTNNA1, DICER1, DIS3L2, EGFR, EPCAM, FH, FLCN, GATA2, GPC3, GREM1, HOXB13, HRAS, KIT, MAX, MEN1, MET, MITF, MLH1, MSH2, MSH3, MSH6, MUTYH, NBN, NF1, NF2, NTHL1, PALB2, PDGFRA, PHOX2B, PMS2, POLD1, POLE, POT1, TOCCB7C, PTCH1, PTEN, RAD50, RAD51C, RAD51D, RB1, RECQL4, RET, RUNX1, SDHA, SDHAF2, SDHB, SDHC, SDHD, SMAD4, SMARCA4, SMARCB1, SMARCE1, STK11, SUFU, TERC, TERT, OBBI253, TP53, TSC1, TSC2, VHL, WRN, WT1 Status [...] MFM consult Pt planning repeat c/s at [facility]. For patients with previous myomectomy involving [...] history of myomectomy. Scheduled for 06/25/15 at [facility] History of prior w ith short cervix, [...] clinic protocol. Pt given VIS(vaccine information sheet) Ruthnan Parr RN Previous section 12/16/2014 Overview: C/s x1, myomectomy x1 Neoplasm of uncertain behavior of skin 10/16/2013 12/23/2018 Agrees to Participate in Research Study 01/03/2013 12/23/2018 Cervical shortening, antepar lisest condition or complication 12/10/2012 03/06/2013 Overview: 0.6cm [...] encounter Miscellaneous Notes * Telephone Encounter - Kelsy Velasco LPN - 07/09/2023 1:34 PM EDT Left a message to tell her that she could call back and I could try and answer questions she had, dr Kendrick is in [facility] doing surgery. I told her that [...] having blurredvision. * Telephone Encounter - Carey ePlletier OSA - 07/09/2023 11:34 AM EDT Pt [...] 4:30 PM EDT Office Visit Gynecology/Obstetric s [facility] [address] [facility] [address] Tamiko Baker MD [address] [place] [address] 08/09/2023 2:00 PM EDT Office Visit Nutrition & Weight Management, [facility] [address] [facility] [place] [address] Joan Bright PA-C [address] [place] [address] 10/05/2023 1:30 PM EDT Office Visit Dermatology [facility] [address] [place] [address] Duane Perez MD 200 [facility] [place] [address] 10/25/2023 2:00 PM EDT Office Visit General Internal Medicine [facility] [address] [place] [address] Steffi Zamudio MD [address] [facility] [place] [address] 03/07/2024 11:00 AM EST Telemedicine Hematology Oncology [facility] [place] [address] [place] [address] Malignancy, Multidisciplinary Clinic High Risk Gi [address] [place], [place] [address] 05/16/2024 1:30 PM EST Office Visit Dermatology [facility] [address] [place] [address] Duane Perez MD 200 [place] [address] Scheduled Procedures Name Priority Associated Diagnoses Date/Ti me COLONOSCOPY FLEXIBLE PROXIMAL DIAGNOSTIC Recall PMS2-related Jackson syndrome (HNPCC4) ESOPHAGOGASTRODUODENOSCOPY ( EGD), FLEXIBLE, TRANSORAL, DIAGNOSTIC Recall PMS2-related Jackson syndrome (HNPCC4) Health Maintenance Due Date Last Done Comments Hepatitis B (1 of 3 - 19+ 3-dose series) 11/28/1999 HPV/Co-Test 2010 COVID-19 Vaccine (2022- season) 2022 Influenza Vaccine (FLU shot) (Season [...] and were consensually agreed upon. Care Teams Jv Baseball Coach Relationship Specialty Start Date End Date Steffi Zamudio MD 200 [place] [address] PCP - General Internal Medicine 05/04/11 documented as of this encounter
--- OUTSIDE RECORDS SUMMARY | 2023-07-10 08:24 | External Medical Summary | Summary of Care ---
Author Name Unknown Organization [facility] Address [address] [place] [address] Phone [phone] Care Team Providers Care Insurance Auditor Name Role Phone Steffi Zamudio MD Primary Care Provider [phone] Reason for Visit * Reason Onset Date Comments Appointment 07/09/2023 Med Request 07/09/2023 Encounter Details Date Type Department Care Team (Late st Contact Info) Description 07/09/2023 Telephone General Surgery, [facility] [address] [place] [address] Services, Scheduling [address] [place] [address] Appointment; Med Request Allergies Active Allergy Reactions [...] 1,000 mcgIndications:Intestinal postoperative nonabsorption 1000 mcg IM [id number] 06/07/2023 08/01/19 25 Active documented as of this encounter (statuses as of 07/09/2023) Active Problems Problem Noted Date Diagnosed Date Class 1 obesity due to excess calories in adult 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 Overview: Genetic Testing Completed 08/30/2022: Test Result: POSITIVE Gene: PMS2 Variant: Deletion (Exons 12-14) ClinVarID: None This result is consistent with Jackson syndrome Test Ordered: Multi-Cancer Panel at [facility] (84 genes) Genes Included: AIP, ALK, APC, PATTY, AXIN2, BAP1, BARD1, BLM, BMPR1A, BRCA1, BRCA2, BRIP1, CASR, CDC73, CDH1, CDK4, CDKN1B, CDKN1C, CDKN2A (p14ARF), CDKN2A (z20TGL7p), CEBPA, CHEK2, CTNNA1, DICER1, DIS3L2, EGFR, EPCAM, FH, FLCN, GATA2, GPC3, GREM1, HOXB13, HRAS, KIT, MAX, MEN1, MET, MITF, MLH1, MSH2, MSH3, MSH6, MUTYH, NBN, NF1, NF2, NTHL1, PALB2, PDGFRA, PHOX2B, PMS2, POLD1, POLE, POT1, JELIF4P, PTCH1, PTEN, RAD50, RAD51C, RAD51D, RB1, RECQL4, RET, RUNX1, SDHA, SDHAF2, SDHB, SDHC, SDHD, SMAD4, SMARCA4, SMARCB1, SMARCE1, STK11, SUFU, TERC, TERT, TWAQ177, TP53, TSC1, TSC2, VHL, WRN, WT1 Status [...] MFM consult Pt [place] [facility]. For patients with previous [...] delivery at 36-37 weeks without amniocentesis per [employer]. Every effort [...] history of myomectomy. 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 She was able to get Percocet Rx [...] in and I left a message that sinceu prescribed them I would message you. She did say she was getting blurred vision which I said could be from the narcotics. * Telephone Encounter - Kelsy Velasco LPN - 07/09/2023 1:34 PM EDT Left a message to tell her that she could call back and I could try and answer questions she had, dr Kendrick is in [facility] doing surgery. I told her that she would have to get her pain meds from Dr Olivia since she was the one that had [...] 4:30 PM EDT Office Visit Gynecology/Obstetric s [facility] [address] [address] Tamiko Baker MD [address] [place] [address] [address] 08/09/2023 2:00 PM EDT Office Visit Nutrition & Weight Management, [facility] [address] [place] [address] Joan Bright PA-C [address] [place] [address] 10/05/2023 1:30 PM EDT Office Visit Dermatology [facility] [address] [place] [address] Duane Perez MD [address] [place] [address] 10/25/2023 2:00 PM EDT Office Visit General Internal Medicine [facility] [place] 200 [facility] [place] [address] Steffi Zamudio MD 200 [facility] [place] [address] 03/07/2024 11:00 AM EST Telemedicine Hematology Oncology [facility] [address] [place] [address] Malignancy, Multidisciplinary Clinic High Risk Gi [address] [place] [address] 05/16/2024 1:30 PM EST Office Visit Dermatology [facility] [place] [address] [facility] [place] [address] Duane Perez MD [address] [facility] [place] [address] Scheduled Procedures Name Priority Associated Diagnoses Date/Ti [...] and were consensually agreed upon. Care Teams Insurance Auditor Relationship Specialty Start Date End Date Steffi Zamudio MD [address] [facility] [place] [address] PCP - General Internal Medicine 05/04/11 documented as of this encounter
--- OUTSIDE RECORDS SUMMARY | 2023-07-10 08:24 | External Medical Summary | Summary of Care ---
Author Name Unknown Organization [facility] Address [address] [place] [address] Phone [phone] Care Team Providers Care Seamer Name Role Phone Steffi Zamudio MD Primary Care Provider [phone] Reason for Visit * Reason Onset Date Comments Appointment 07/09/2023 Med Request 07/09/2023 Encounter Details Date Type Department Care Team (Late st Contact Info) Description 07/09/2023 Telephone General Surgery, [facility] [address] [place] [address] Services, Scheduling [address] [place] [address] Appointment; Med Request Allergies Active Allergy Reactions [...] 1,000 mcgIndications:Intestinal postoperative nonabsorption 1000 mcg IM [id number] 06/07/2023 08/01/19 25 Active documented as of [...] Test Ordered: Multi-Cancer Panel at [facility] (84 genes) Genes Included: AIP, ALK, APC, PATTY, AXIN2, BAP1, BARD1, BLM, BMPR1A, BRCA1, BRCA2, BRIP1, CASR, CDC73, CDH1, CDK4, CDKN1B, CDKN1C, CDKN2A (p14ARF), CDKN2A (y09KSE7x), CEBPA, CHEK2, CTNNA1, DICER1, DIS3L2, EGFR, EPCAM, FH, FLCN, GATA2, GPC3, GREM1, HOXB13, HRAS, KIT, MAX, MEN1, MET, MITF, MLH1, MSH2, MSH3, MSH6, MUTYH, NBN, NF1, NF2, NTHL1, PALB2, PDGFRA, PHOX2B, PMS2, POLD1, POLE, POT1, DPGRG9I, PTCH1, PTEN, RAD50, RAD51C, RAD51D, RB1, RECQL4, RET, RUNX1, SDHA, SDHAF2, SDHB, SDHC, SDHD, SMAD4, SMARCA4, SMARCB1, SMARCE1, STK11, SUFU, TERC, TERT, JBHT170, TP53, TSC1, TSC2, VHL, WRN, WT1 Status [...] questions she had, dr Kendrick is in [facility] doing surgery. I told her that [...] 4:30 PM EDT Office Visit Gynecology/Obstetric s [facility] [address] [place] [address] Tamiko Baker MD [address] [place] [address] 08/09/2023 2:00 PM EDT Office Visit Nutrition & Weight Management, [facility] [address] [place] [address] Joan Bright PA-C [address] [place] [address] 10/05/2023 1:30 PM EDT Office Visit Dermatology [facility] 200 [facility] [place] [address] Duane Perez MD 200 [facility] [place] [address] 10/25/2023 2:00 PM EDT Office Visit General Internal Medicine [facility] 200 [facility] [place] [address] Steffi Zamudio MD 200 [facility] [place] [address] 03/07/2024 11:00 AM EST Telemedicine Hematology Oncology [facility] [place] [address] [place] [address] Malignancy, Multidisciplinary Clinic High Risk Gi [address] [facility] [place] [address] 05/16/2024 1:30 PM EST Office Visit Dermatology [facility] 200 [facility] [place] [address] Duane Perez MD 200 [facility] [place] [address] Scheduled Procedures Name Priority Associated Diagnoses Date/Ti [...] and were consensually agreed upon. Care Teams Seamer Relationship Specialty Start Date End Date Steffi Zamudio MD 200 [place] [address] PCP - General Internal Medicine 05/04/11 documented as of this encounter
[2023-07-10] MEDS: DOCUSATE SODIUM 100 MG CAP PO SCH (08:56)
--- NOTE | 2023-07-10 12:13 | Surgery Progress Note ---
Date of Service July 10, 2023 Assessment & Plan (1) Acute postoperative abdominal pain: (2) S/P laparoscopic hysterectomy: (3) S/P hernia surgery: Plan she is doing fairly well. She began passing flatus today. We will advance her diet to clears. exam and labs are not concerning. Continue pain control, advance diet as tolerated, encourage out of bed to chair and ambulation. We will continue to follow up. Admission and Anticipated Discharge Date Admission Date: July 09, 2023 Subjective Pain is under better control this morning. No nausea or vomiting. Passing flatus. No fevers or chills. Physical Exam Physical Exam: NAD, a and O x3 AF VSS Abdomen: Soft, mild TTP No guarding or distention Dressing C/ D/I; drain with small serous drainage Results & Data Vital Signs (Past 12 Hours) Vital Signs Temp Pulse Resp BP Pulse Ox O2 Del Method 07/10/23 11:36 36.6 C 71 16 103/63 98 Room Air 07/10/23 10:33 16 07/10/23 07:55 36.5 C 77 16 88/58 L 96 Room Air 07/10/23 03:00 36.6 C 78 18 91/57 L 97 Room Air
--- NOTE | 2023-07-10 16:36 | Gynecologic Progress Note ---
Date of Service July 10, 2023 Assessment & Plan (1) Constipation: Plan: Continue bowel regime of miralax, colace, simethicone, and hypomagnesia. Also discussed if no bowel movement or severe constipation, then an enema. (2) Abdominal pain: Plan: Pain improved with passage of flatus. (3) Jackson syndrome: (4) S/P laparoscopic hysterectomy: Plan: Patient is a 42-year-old -0-0-2 female who is status post total laparoscopic hysterectomy, abdominal wall hernia repair with mesh on July 05, presented with continued pain, constipation, unable to pass gas Vital signs stable afebrile, Abdominal exam is benign, White count within normal limits, CT of abdomen with postop changes, Patient pain improved with passage of flatus. Plan to discharge after dinner. (5) S/P hernia surgery: Plan: Patient to follow up with general surgery for removal of drain. Admission and Anticipated Discharge Date Admission Date: July 09, 2023 Subjective Patient seen and evaluated. Patient's pain is much improved since passing flatus. Ambulating without difficulty. Tolerating clears. Patient has an appetite and will have dinner. Denies N/V, fevers, chills, CP, or SOB. Urinating without difficulty. Denies bowel movement. Review of Systems Review of Systems: As stated in the HPI. Physical Exam Constitutional: WD/WN, vitals as above Respiratory: normal respiratory effort Cardiovascular: Rate/Rhythm: regular rate Gastrointestinal (Abdomen): Inspection/Auscultation: abdomen normal to inspection Incisions: healing well. No edema or erythema. CHAYA drain in place. Results & Data Vital Signs (Past 12 Hours) Vital Signs Temp Pulse Resp BP Pulse Ox O2 Del Method 07/10/23 11:36 36.6 C 71 16 103/63 98 Room Air 07/10/23 10:33 16 07/10/23 07:55 36.5 C 77 16 88/58 L 96 Room Air
--- NOTE | 2023-07-10 16:37 | Discharge Summary ---
Date of Service July 10, 2023 Admission HPI Per Admitting Provider Patient is a 42-year-old -0-0-2 with history of prior 2 C-sections, myomectomy, gastric sleeve surgery 2 years ago. s/p total laparoscopic hysterectomy by Dr. Baker, anterior abdominal wall hernia repair with mesh with Dr. Kendrick on July 05, discharged yesterday. She called in with continued pain 7 out of 8 since surgery, about the same not getting better over time and constipation, unable to move her bowels since before surgery probably on July 03 or , not sure, unable to pass gas. She was recommended to come into the ER by office. She was seen by ER physician and ordered CT of abdomen and blood work. Blood work was normal with normal white count, H&H and metabolic panel. CT scan showed constipation with fecal retention, free air in upper abdomen most likely from surgery, fluid in the pelvis most likely from recent surgery. She denies fever, chills, nausea vomiting. She has been eating drinking normally and keeping it down with no vomiting. She passed gas very little once or twice, unable to move her bowels. She has been using oxycodone every 4 hours since surgery but it is not helping. She is not taking Tylenol nor Motrin because of gastric sleeve surgery. Admission Exam (Per Admitting) Constitutional WD/WN, vitals as above Respiratory normal respiratory effort Cardiovascular Rate/Rhythm: regular rate Gastrointestinal (Abdomen) Inspection/Auscultation: abdomen normal to inspection Discharge Data Consultations 07/09/23 21:18 ED Decision to Admit Stat 07/09/23 22:41 Consult General Surgery Routine Hospital Course (1) Constipation: Continue bowel regime of miralax, colace, simethicone, and hypomagnesia. Also discussed if no bowel movement or severe constipation, then an enema. (2) Abdominal pain: Pain improved with passage of flatus. (3) Jackson syndrome: (4) S/P laparoscopic hysterectomy: Patient is a 42-year-old -0-0-2 female who is status post total laparoscopic hysterectomy, abdominal wall hernia repair with mesh on July 05, presented with continued pain, constipation, unable to pass gas Vital signs stable afebrile, Abdominal exam is benign, White count within normal limits, CT of abdomen with postop changes, Patient pain improved with passage of flatus. Plan to discharge after dinner. (5) S/P hernia surgery: Patient to follow up with general surgery for removal of drain.
== END 2023-07-10 19:40 | disposition home or self-care (01) | DRG 392 ==
LOC: ED 17:38 → 4E1 21:20 → INTOOBSV 21:20 → 4E1 23:05